=== PATIENT | female | born 1960 | race Two or more races ===

== ENCOUNTER 2020-07-09 12:42 | Outpatient (REF) | payer OTHER, SELFPAY ==
[2020-07-09 13:44] LABS: Basophils Percent Auto 0.3 % (0-2); Eosinophils Absolute Auto 0.1 X10*3/uL (0.0-0.4); Eosinophils Percent Auto 1.9 % (0-4); Hematocrit 44.3 % (37-47); Hemoglobin 14.7 g/dl (12.0-16.0); Imm Gran Abs Auto 0.03 X10*3/uL (0.00-0.03); Imm Gran Pct Auto 0.5 % (0.0-0.4); Lymphocytes Absolute Auto 2.3 X10*3/uL (1.2-4.9); Lymphocytes Percent Auto 36.7 % (20-40); MANUAL DIFF FLAG NO; Mean Corpuscular HGB Conc 33.2 g/dl (31.0-35.0); Mean Corpuscular Hemoglobin 29.2 pg (27.0-33.0); Mean Corpuscular Volume 87.9 fL (80-98); Mean Platelet Volume 12.3 fL (9.4-12.3); Monocytes Absolute Auto 0.4 X10*3/uL (0.1-1.2); Monocytes Percent Auto 7.1 % (2-11); Neutrophils Absolute Auto 3.3 X10*3/uL (2.0-8.3); Neutrophils Percent Auto 53.5 % (45-73); Platelet Count 193 X10*3/uL (160-400); Red Blood Count 5.04 X10*6/uL (4.20-5.50); Red Cell Distribution Width 12.7 % (11.0-16.0); White Blood Count 6.2 X10*3/uL (4.8-10.8)
[2020-07-09 14:47] LABS: Alanine Aminotransferase 48 U/L (0-31); Albumin Level 4.5 g/dL (3.5-5.0); Alkaline Phosphatase 155 U/L (39-117); Anion Gap 17 (12-20); Aspartate Amino Transferase 37 U/L (5-31); Bilirubin Total 0.7 mg/dL (0.0-1.0); Blood Urea Nitrogen 8 mg/dL (9-16); Calcium 9.6 mg/dL (8.4-10.2); Carbon Dioxide 22 mmol/L (22-29); Chloride 102 mmol/L (96-108); Cholesterol 197 mg/dL; Estimated Glomerular Filt Rate > 60; Glucose Fasting 343 mg/dL (60-99); HDL Cholesterol 44 mg/dL; LDL Cholesterol Calculated 103 mg/dl; Potassium 4.3 mmol/l (3.3-5.1); Sodium 137 mmol/L (135-145); Total Protein 7.9 g/dL (6.5-8.0); Triglycerides 254 mg/dL
== END 2020-07-09 12:43 | disposition home or self-care (01) ==
LOC: HO.LAB 12:42
PROVIDERS: PCP Internal Medicine; Visit Provider Internal Medicine
DX: E78.2 Mixed hyperlipidemia (principal); E11.9 Type 2 diabetes mellitus without complications; K21.9 Gastro-esophageal reflux disease without esophagitis
CPT/HCPCS: 36415; 80053; 80061; 82043; 85025

== ENCOUNTER 2020-08-27 10:54 | Outpatient (REF) | payer OTHER, SELFPAY | END 2020-08-27 10:55 | disposition home or self-care (01) | LOC: HO.LAB 10:54 | PROVIDERS: PCP Internal Medicine; Visit Provider Internal Medicine | DX: Z20.828 Contact with and (suspected) exposure to other viral communicable diseases (principal) | CPT/HCPCS: C9803; U0003 ==

== ENCOUNTER → 2020-10-08 09:17 | Outpatient (BNVA) | payer OTHER, SELFPAY | PROVIDERS: PCP Internal Medicine; Visit Provider Obstetrics & Gynecology | DX: N76.0 Acute vaginitis (principal) | CPT/HCPCS: 99212 ==

== ENCOUNTER 2020-10-09 15:38 | Outpatient (REF) | payer OTHER, SELFPAY | END 2020-10-09 15:39 | disposition home or self-care (01) | LOC: HO.LAB 15:38 | PROVIDERS: Visit Provider Internal Medicine | DX: Z20.822 Contact with and (suspected) exposure to COVID-19 (principal) | CPT/HCPCS: 36415; C9803; U0003 ==

== ENCOUNTER 2020-10-10 09:25 | Outpatient (REF) | payer OTHER, SELFPAY ==
[2020-10-11 09:39] LABS: BV Int Neg Control Negative (Negative); BV Int Pos Control Positive (Positive)
== END 2020-10-10 09:26 | disposition home or self-care (01) ==
LOC: HO.LAB 09:25
PROVIDERS: PCP Internal Medicine; Visit Provider Advanced Practice Midwife
DX: A60.00 Herpesviral infection of urogenital system, unspecified (principal); B96.89 Other specified bacterial agents as the cause of diseases classified elsewhere; N76.0 Acute vaginitis; L30.4 Erythema intertrigo; E11.9 Type 2 diabetes mellitus without complications; M25.50 Pain in unspecified joint; Z88.5 Allergy status to narcotic agent; Z88.8 Allergy status to other drugs, medicaments and biological substances; Z91.048 Other nonmedicinal substance allergy status; Z87.891 Personal history of nicotine dependence; Z78.0 Asymptomatic menopausal state
CPT/HCPCS: 87255; 87480; 87510; 87660; 99212

== ENCOUNTER 2020-10-22 11:37 | Emergency (ER) | payer OTHER, SELFPAY ==
[2020-10-22 12:30] VITALS: BP 124/75; PULSE 88; RESP 16; TEMP 36.8; O2SAT 98; BMI 30.2
[2020-10-22 12:45] LABS: Glucose, Whole Blood 249 mg/dL (60-115)
[2020-10-22 12:56] LABS: MANUAL DIFF FLAG NO
[2020-10-22 12:58] LABS: Basophils Percent Auto 0.3 % (0-2); Eosinophils Absolute Auto 0.1 X10*3/uL (0.0-0.4); Eosinophils Percent Auto 1.6 % (0-4); Hematocrit 43.6 % (37-47); Hemoglobin 14.9 g/dl (12.0-16.0); Imm Gran Abs Auto 0.02 X10*3/uL (0.00-0.03); Imm Gran Pct Auto 0.3 % (0.0-0.4); Lymphocytes Absolute Auto 2.2 X10*3/uL (1.2-4.9); Lymphocytes Percent Auto 34.8 % (20-40); Mean Corpuscular HGB Conc 34.2 g/dl (31.0-35.0); Mean Corpuscular Hemoglobin 29.6 pg (27.0-33.0); Mean Corpuscular Volume 86.5 fL (80-98); Mean Platelet Volume 11.5 fL (9.4-12.3); Monocytes Absolute Auto 0.5 X10*3/uL (0.1-1.2); Monocytes Percent Auto 7.8 % (2-11); Neutrophils Absolute Auto 3.5 X10*3/uL (2.0-8.3); Neutrophils Percent Auto 55.2 % (45-73); Platelet Count 178 X10*3/uL (160-400); Red Blood Count 5.04 X10*6/uL (4.20-5.50); Red Cell Distribution Width 12.9 % (11.0-16.0); White Blood Count 6.4 X10*3/uL (4.8-10.8)
[2020-10-22 13:27] LABS: Anion Gap 14 (12-20); Blood Urea Nitrogen 7 mg/dL (9-16); Calcium 9.7 mg/dL (8.4-10.2); Carbon Dioxide 27 mmol/L (22-29); Chloride 99 mmol/L (96-108); Creatinine Clr Calc Pharmacy 66.8; Estimated Glomerular Filt Rate > 60; Glucose Random 248 mg/dL (60-115); Potassium 4.3 mmol/L (3.3-5.1); Sodium 136 mmol/L (135-145)
[2020-10-22 13:57] LABS: Glucose Urine UA 500 MG/DL (NEG); Leukocyte Esterase Urine 2+ (NEG); Nitrite Urine NEG (NEG); PH 7.5 (5.0-8.0); UACC Culture Trigger YES; Urine Blood NEG (NEG); Urine Ketones NEG (NEG); Urine Protein NEG (NEG-TRACE)
[2020-10-22 14:00] LABS: Appearance Urine CLOUDY; Color Urine YELLOW
[2020-10-22 14:21] LABS: Amorphous Sediment Urine 2+ /LPF; Bacteria Urine 1+ /LPF; Squamous Epithelial Cell Urine 2+ /LPF
[2020-10-22 15:48] LABS: Glucose, Whole Blood 232 mg/dL (60-115)
[2020-10-22 18:05] VITALS: BP 153/83; PULSE 88; RESP 17; TEMP 37; O2SAT 97
--- NOTE | 2020-10-22 18:15 | ED_ITS ---
HPI - Nausea/Vomiting/Diarrhea General Chief complaint: Nausea/Vomiting/Diarrhea Stated complaint: VOMITING Time Seen by Provider: 10/22/20 18:15 Source: patient Mode of arrival: ambulatory Limitations: no limitations History of Present Illness HPI Narrative: 60 y/o female with history of DM on insulin w/ neuropathy, herpes simplex, arthritis, anxiety who presents with nausea and vomiting since last night. She reports being started on a new insulin called Victozia and last night she was hypoglycemic to 40. She was vomiting and had chest discomfort. This morning the symptoms persisted, but her glucose was improved. She called her doctor who instructed her to come to the ER for further evaluation. She denies fever, chills, diarrhea, myalgias, COVID exposure. She admits to diffuse abdominal aching as well as urinary frequency and dysuria. MD elicited complaint: nausea and vomiting Onset (ago): day(s) (1) Description of vomiting: food contents, watery and bilious Associated nausea: Yes Associated abdominal pain: Yes Location of pain: diffuse Radiation: diffuse Pain consistency: intermittent Severity: moderate Quality: aching Exacerbating factors: eating Relieving factors: vomiting Context: new medication Associated symptoms: chest pain, loss of appetite, dysuria, weakness and anxiety Related Data Home Medications Medication Instructions Recorded Confirmed clindamycin phosphate 1 % lotion 1 appl TOPICAL BID 09/03/20 09/03/20 diazepam 10 mg tablet 10 mg PO BID PRN 09/03/20 09/03/20 erythromycin 5 mg/gram (0.5 %) eye OPHTHALMIC (EYE) 09/03/20 09/03/20 ointment gabapentin 100 mg capsule 300 mg PO TID 09/03/20 09/03/20 linagliptin 5 mg tablet 5 mg PO DAILY 09/03/20 09/03/20 loratadine 10 mg tablet 10 mg PO DAILY 09/03/20 09/03/20 oxcarbazepine 300 mg tablet 750 mg PO BEDTIME 09/03/20 09/03/20 pen needle, diabetic 31 gauge x #50 ea 09/03/20 09/03/2012/03 Previous Rx's Medication Instructions Recorded ibuprofen 600 mg tablet 600 mg PO TID PRN 90 Days #270 tab 06/24/20 blood-glucose meter #1 ea 07/31/20 blood sugar diagnostic 1 strip MISCELLANEOUS BID #200 08/09/20 strip nystatin-triamcinolone 100,000 1 appl TOPICAL BID PRN 30 Days #30 08/19/20 unit/g-0.1 % topical cream g glipizide 10 mg tablet 10 mg PO DAILY #90 tab 08/23/20 blood pressure monitor #1 ea 09/03/20 insulin glargine 100 unit/mL (3 32 unit SUBCUT DAILY 90 Days #28.8 09/03/20 mL) subcutaneous pen ml carisoprodol 350 mg tablet 350 mg PO BID 30 Days #60 tab 09/06/20 metformin 1,000 mg tablet 1,000 mg PO BID #180 tab 09/06/20 albuterol sulfate 90 mcg/actuation 1 - 2 puff INHALATION Q4-6H PRN 09/08/20 aerosol inhaler #8.5 g clotrimazole-betamethasone 1 1 appl TOPICAL BID 14 Days #45 g 10/08/20 %-0.05 % topical cream fluconazole 150 mg tablet 150 mg PO Q3D #2 tab 10/08/20 acyclovir 5 % topical ointment 1 appl TOPICAL 6XD 7 Days #15 g 10/10/20 valacyclovir 500 mg tablet 500 mg PO BID #30 tab 10/10/20 cefuroxime axetil 250 mg PO BID 7 Days #14 tab 10/22/20 ondansetron HCl [Zofran] 4 mg PO Q8H PRN #7 tab 10/22/20 Allergies Allergy/AdvReac Type Severity Reaction Status Date / Time cyclobenzaprine Allergy Intermediate HEADACHE,DI Verified 10/10/20 09:54 [CYCLOBENZAPRINE] ZZINESS methocarbamol [METHOCARBAMOL] Allergy Intermediate TICS Verified 10/10/20 09:54 oxycodone [From PERCOCET] Allergy Intermediate VOMITING Verified 10/10/20 09:54 acetaminophen [Percocet] Allergy Unknown vomiting Verified 10/10/20 09:54 divalproex sodium [Depakote] Allergy Unknown increase Verified 10/10/20 09:54 liver enzymes nickel Allergy Unknown Unknown Verified 10/10/20 09:54 risperidone [RISPERIDONE] AdvReac Severe CHEST PAIN Verified 10/10/20 09:54 canagliflozin [Invokana] AdvReac Unknown confusion Verified 10/10/20 09:54 dulaglutide [Trulicity] AdvReac Unknown abdominal Verified 10/10/20 09:54 bloating, numbness, myalgia Narcotics Allergy Unknown unknown Uncoded 10/10/20 09:54 Review of Systems Review of Systems: Constitutional: No Fever, No Chills Cardiovascular: No Chest Pain, No SOB, No Orthopnea, No Edema Respiratory: No Cough, No Sputum, No Wheezing, No dyspnea Gastrointestinal: +Nausea, + Vomiting, No Diarrhea, +abdominal Pain Genitourinary: + Dysuria, + Urinary Frequency, No Hematuria Musculoskeletal: No joint pain, No Myalgias Skin: No Skin Lesions, No rash Neuro: No Weakness, No Numbness, No Dizziness, No Headache Psych: No Anxiety/Panic, No Depression Heme/Lymph: No Bruising, No Lymphadenopathy Endocrine: + Polyuria, No Polydipsia Gastrointestinal: Gastrointestinal: Reports nausea PMFSH Past Medical History Medical History (Updated 10/22/20 @ 19:53 by PEDRO Gutierrez) Diabetes mellitus Herpes simplex virus (HSV) infection Intertrigo Nickel allergy Nickel dermatitis Polyarthralgia Surgical History History of section History of colonoscopy History of discectomy History of laparoscopic cholecystectomy History of laparoscopy History of prior ablation treatment History of tubal ligation Family History Family History Father Prostate cancer Mother Liver problem Social History Social History Alcohol intake: never Smoking Status: Former smoker Smoked in Last 30 Days: No Use of substances other than those prescribed or required for medical reasons: No Advance Directives: No Advance Directives Information Provided: Yes Sexual orientation: Straight/Heterosexual Gender identity: female Physical Exam Vital Signs: Vital Signs: Last Vital Signs Temp 98.6 F 10/22/20 18:05 Pulse 88 10/22/20 18:05 Resp 17 10/22/20 18:05 BP 153/83 H 10/22/20 18:05 Pulse Ox 97 10/22/20 18:05 Body Mass Index 30.2 Appearance: Alert. Oriented X3. No acute distress. Eyes: Pupils equal, round and reactive to light. ENT: Pharynx normal. Neck: Normal inspection. Neck supple. CVS: Normal heart rate and rhythm. Pulses normal. Respiratory: No respiratory distress. Breath sounds normal. Abdomen: Soft and nontender. +BS x4 Skin: Skin warm and dry. Normal skin color. Normal skin turgor. No rashes. Extremities: No lower extremity edema. Neuro: Oriented X 3. No motor deficit. No sensory deficit. Course Course Course Narrative: 60 y/o female presenting with N/V and urinary symptoms as well as hypoglycemia associated with new insulin Rx. Labs are unremarkable. Reported vomiting in the waiting room. UA is positive for infection, will give Rocephin, IVF and antiemetic now. Doubt diverticulitis, cholecystitis, appendicitis. Will hold off on CT scan for now. Patient appears well. Reevaluation(s) Reevaluation #1: Patient feels improved and is tolerating PO. She is stable for discharge with treatment for UTI. She will f/u with her provider regarding her new insulin Rx. Her glucose has remained 200 while in the ED. Advised to monitor AC/HS and return to the ER if symptoms worsen. She agrees with plan and is stable for d/c. MDM - Nausea/Vomiting/Diarrhea Lab Data Result diagrams: 10/22/20 12:41 10/22/20 12:41 Labs: Lab Results 10/22/20 10/22/20 10/22/20 Range/Units 12:33 12:41 12:41 WBC 6.4 (4.8-10.8) X10*3/uL RBC 5.04 (4.20-5.50) X10*6/uL Hgb 14.9 (12.0-16.0) g/dl Hct 43.6 (37-47) % MCV 86.5 (80-98) fL MCH 29.6 (27.0-33.0) pg MCHC 34.2 (31.0-35.0) g/dl RDW 12.9 (11.0-16.0) % Plt Count 178 (160-400) X10*3/uL MPV 11.5 (9.4-12.3) fL Immature Gran % (Auto) 0.3 (0.0-0.4) % Neut % (Auto) 55.2 (45-73) % Lymph % (Auto) 34.8 (20-40) % [place] % (Auto) 7.8 (2-11) % Eos % (Auto) 1.6 (0-4) % Baso % (Auto) 0.3 (0-2) % Lymph # (Auto) 2.2 (1.2-4.9) X10*3/uL [place] # (Auto) 0.5 (0.1-1.2) X10*3/uL Eos # (Auto) 0.1 (0.0-0.4) X10*3/uL Baso # (Auto) 0.0 (0.0-0.2) X10*3/uL Abs Immat Gran (auto) 0.02 (0.00-0.03) X10*3/uL Absolute Neuts (auto) 3.5 (2.0-8.3) X10*3/uL Absolute Nucleated RBC 0.000 (0.0-0.012) X10*3/uL Nucleated RBC % (auto) 0.0 (0.0-0.2) /100WBC Sodium 136 (135-145) mmol/L Potassium 4.3 (3.3-5.1) mmol/L Chloride 99 (96-108) mmol/L Carbon Dioxide 27 (22-29) mmol/L Anion Gap 14 (12-20) BUN 7 L (9-16) mg/dL Creatinine 0.76 (0.5-1.4) mg/dL Estim Creat Clear Calc 66.8 Estimated GFR > 60 POC Glucose 249 H (60-115) mg/dL Random Glucose 248 H (60-115) mg/dL Lactic Acid (0.5-2.0) mmol/L Calcium 9.7 (8.4-10.2) mg/dL Urine Color Urine Appearance Urine pH (5.0-8.0) Ur Specific [place] (1.005-1.025) Urine Protein (NEG-TRACE) MG/DL Urine Glucose (UA) (NEG) MG/DL Urine Ketones (NEG) MG/DL Urine Blood (NEG) Urine Nitrite (NEG) Ur Leukocyte Esterase (NEG) Urine RBC (0) /HPF Urine WBC (0-4) /HPF Ur Squamous Epith Cells /LPF Amorphous Sediment /LPF Urine Bacteria /LPF Coronavirus (PCR) (Negative) Influenza Type A (PCR) (Negative) Influenza Type B (PCR) (Negative) RSV RNA Qual (PCR) (Negative) 10/22/20 10/22/20 10/22/20 Range/Units 13:12 15:44 18:43 WBC (4.8-10.8) X10*3/uL RBC (4.20-5.50) X10*6/uL Hgb (12.0-16.0) g/dl Hct (37-47) % MCV (80-98) fL MCH (27.0-33.0) pg MCHC (31.0-35.0) g/dl RDW (11.0-16.0) % Plt Count (160-400) X10*3/uL MPV (9.4-12.3) fL Immature Gran % (Auto) (0.0-0.4) % Neut % (Auto) (45-73) % Lymph % (Auto) (20-40) % [place] % (Auto) (2-11) % Eos % (Auto) (0-4) % Baso % (Auto) (0-2) % Lymph # (Auto) (1.2-4.9) X10*3/uL [place] # (Auto) (0.1-1.2) X10*3/uL Eos # (Auto) (0.0-0.4) X10*3/uL Baso # (Auto) (0.0-0.2) X10*3/uL Abs Immat Gran (auto) (0.00-0.03) X10*3/uL Absolute Neuts (auto) (2.0-8.3) X10*3/uL Absolute Nucleated RBC (0.0-0.012) X10*3/uL Nucleated RBC % (auto) (0.0-0.2) /100WBC Sodium (135-145) mmol/L Potassium (3.3-5.1) mmol/L Chloride (96-108) mmol/L Carbon Dioxide (22-29) mmol/L Anion Gap (12-20) BUN (9-16) mg/dL Creatinine (0.5-1.4) mg/dL Estim Creat Clear Calc Estimated GFR POC Glucose 232 H (60-115) mg/dL Random Glucose (60-115) mg/dL Lactic Acid (0.5-2.0) mmol/L Calcium (8.4-10.2) mg/dL Urine Color YELLOW Urine Appearance CLOUDY Urine pH 7.5 (5.0-8.0) Ur Specific [place] 1.020 (1.005-1.025) Urine Protein NEG (NEG-TRACE) MG/DL Urine Glucose (UA) 500 H (NEG) MG/DL Urine Ketones NEG (NEG) MG/DL Urine Blood NEG (NEG) Urine Nitrite NEG (NEG) Ur Leukocyte Esterase 2+ H (NEG) Urine RBC 1-4 (0) /HPF Urine WBC 10-14 H (0-4) /HPF Ur Squamous Epith Cells 2+ /LPF Amorphous Sediment 2+ /LPF Urine Bacteria 1+ /LPF Coronavirus (PCR) NEGATIVE (Negative) Influenza Type A (PCR) NEGATIVE (Negative) Influenza Type B (PCR) NEGATIVE (Negative) RSV RNA Qual (PCR) NEGATIVE (Negative) 10/22/20 Range/Units 18:47 WBC (4.8-10.8) X10*3/uL RBC (4.20-5.50) X10*6/uL Hgb (12.0-16.0) g/dl Hct (37-47) % MCV (80-98) fL MCH (27.0-33.0) pg MCHC (31.0-35.0) g/dl RDW (11.0-16.0) % Plt Count (160-400) X10*3/uL MPV (9.4-12.3) fL Immature Gran % (Auto) (0.0-0.4) % Neut % (Auto) (45-73) % Lymph % (Auto) (20-40) % [place] % (Auto) (2-11) % Eos % (Auto) (0-4) % Baso % (Auto) (0-2) % Lymph # (Auto) (1.2-4.9) X10*3/uL [place] # (Auto) (0.1-1.2) X10*3/uL Eos # (Auto) (0.0-0.4) X10*3/uL Baso # (Auto) (0.0-0.2) X10*3/uL Abs Immat Gran (auto) (0.00-0.03) X10*3/uL Absolute Neuts (auto) (2.0-8.3) X10*3/uL Absolute Nucleated RBC (0.0-0.012) X10*3/uL Nucleated RBC % (auto) (0.0-0.2) /100WBC Sodium (135-145) mmol/L Potassium (3.3-5.1) mmol/L Chloride (96-108) mmol/L Carbon Dioxide (22-29) mmol/L Anion Gap (12-20) BUN (9-16) mg/dL Creatinine (0.5-1.4) mg/dL Estim Creat Clear Calc Estimated GFR POC Glucose (60-115) mg/dL Random Glucose (60-115) mg/dL Lactic Acid 1.1 (0.5-2.0) mmol/L Calcium (8.4-10.2) mg/dL Urine Color Urine Appearance Urine pH (5.0-8.0) Ur Specific [place] (1.005-1.025) Urine Protein (NEG-TRACE) MG/DL Urine Glucose (UA) (NEG) MG/DL Urine Ketones (NEG) MG/DL Urine Blood (NEG) Urine Nitrite (NEG) Ur Leukocyte Esterase (NEG) Urine RBC (0) /HPF Urine WBC (0-4) /HPF Ur Squamous Epith Cells /LPF Amorphous Sediment /LPF Urine Bacteria /LPF Coronavirus (PCR) (Negative) Influenza Type A (PCR) (Negative) Influenza Type B (PCR) (Negative) RSV RNA Qual (PCR) (Negative) ECG Data Attestation: I personally reviewed and interpreted this ECG as follows: ECG interpretation date: 10/22/20 ECG interpretation time: 19:39 Interpretation: normal sinus rhythm, HR 77 bpm, normal VT interval, normal QTc, no ST segment elevations or depressions. Discharge Plan Discharge Clinical Impression: UTI (urinary tract infection) Qualifiers: Urinary tract infection type: acute cystitis Hematuria presence: without hematuria Qualified Code(s): N30.00 - Acute cystitis without hematuria Vomiting Qualifiers: Vomiting type: unspecified Vomiting Intractability: non-intractable Nausea presence: with nausea Qualified Code(s): R11.2 - Nausea with vomiting, unspecified Patient Disposition: Home, Self-Care Instructions: Urinary Tract Infection in Women (ED), Acute Nausea and Vomiting (ED) Additional Instructions: Your workup today showed you have a UTI. You were given your 1st dose of antibiotics in the ER - start taking the prescription antibiotic as directed starting tomorrow. Your labs are otherwise normal. Your EKG was normal. You were NEGATIVE for COVID, Influenza and RSV. Monitor your glucose before meals and nightly. Follow up with your doctor regarding your new diabetes medication. Follow up with your doctor tomorrow. If you have worsening symptoms come back to the ER for further evaluation. Prescriptions: New cefuroxime axetil 250 mg tablet 250 mg PO BID 7 Days Qty: 14 RF: 0 ondansetron HCl [Zofran] 4 mg tablet 4 mg PO Q8H PRN (Reason: nausea and vomiting) Qty: 7 RF: 0 No Action ibuprofen 600 mg tablet 600 mg PO TID PRN (Reason: pain) 90 Days Qty: 270 RF: 3 (DME) blood-glucose meter Kit See Rx Instructions .ROUTE .MEDSUPPLY Qty: 1 RF: 0 blood sugar diagnostic [FreeStyle Lite Strips] Strip 1 strip miscellaneous BID Qty: 200 RF: 1 nystatin-triamcinolone 100,000-0.1 unit/g-% cream 1 appl topical BID PRN (Reason: rash) 30 Days Qty: 30 RF: 1 glipizide 10 mg tablet 10 mg PO DAILY Qty: 90 RF: 1 metformin 1,000 mg tablet 1,000 mg PO BID Qty: 180 RF: 1 carisoprodol 350 mg tablet 350 mg PO BID 30 Days Qty: 60 RF: 0 albuterol sulfate 90 mcg/actuation HFA aerosol inhaler 1 - 2 puff inhalation Q4-6H PRN (Reason: for dyspnea) Qty: 8.5 RF: 2 loratadine 10 mg tablet 10 mg PO DAILY RF: 0 Tradjenta 5 mg tablet 5 mg PO DAILY RF: 0 oxcarbazepine 300 mg tablet 750 mg PO BEDTIME RF: 0 diazepam 10 mg tablet 10 mg PO BID PRNRF: 0 (DME) pen needle, diabetic 31 gauge x 3/16 needle See Rx Instructions ea topical QID Qty: 50 RF: 0 clindamycin phosphate 1 % lotion 1 appl topical BID RF: 0 gabapentin 100 mg capsule 300 mg PO TID RF: 0 erythromycin 5 mg/gram (0.5 %) ointment ophthalmic (eye) RF: 0 (DME) blood pressure monitor Kit See Rx Instructions .ROUTE .MEDSUPPLY Qty: 1 RF: 0 Basaglar GarethikPen U-100 Insulin 100 unit/mL (3 mL) insulin pen 32 unit subcut DAILY 90 Days Qty: 28.8 RF: 1 fluconazole 150 mg tablet 150 mg PO Q3D Qty: 2 RF: 0 clotrimazole-betamethasone 1-0.05 % cream 1 appl topical BID 14 Days Qty: 45 RF: 0 valacyclovir [Valtrex] 500 mg tablet 500 mg PO BID Qty: 30 RF: 1 acyclovir [Zovirax] 5 % ointment 1 appl topical 6XD 7 Days Qty: 15 RF: 1 Interventions: ED Discharge Assessment Last Done: 10/22/20 20:02 Discharge Date/Time: 10/22/20 20:02
--- NOTE | 2020-10-22 18:24 | ECG_ITS ---
Test Reason : NAUSEA Blood Pressure : / mmHG Vent. Rate : 077 BPM Atrial Rate : 077 BPM P-R Int : 150 ms QRS Dur : 082 ms QT Int : 390 ms P-R-T Axes : 056 002 031 degrees QTc Int : 441 ms Normal sinus rhythm Normal ECG When compared with ECG of 11-DEC-2018 01:10, T wave amplitude has increased in Lateral leads Referred By: Soraida Ruiz Electronically Signed By:JUNIE GONZALEZ MD
[2020-10-22] MEDS: ondansetron HCL 4 MG/2 ML VIAL IVPUSH (18:54)
[2020-10-22] MEDS: 0.9 % Sodium Chloride 1,000 ML 999 ML IVCONT (18:55)
[2020-10-22] MEDS: cefTRIAXone sodium 1 GM in 0.9 % Sodium Chloride 50 ML IV (19:01)
[2020-10-22 19:11] LABS: Lactic Acid 1.1 mmol/L (0.5-2.0)
--- NOTE | 2020-10-22 19:11 | PC.NURSE ---
Pt tolerating po well at this time.
[2020-10-22 19:36] LABS: Influenza A PCR NEGATIVE (Negative); Influenza B PCR NEGATIVE (Negative); Resp Syncy Virus RNA Qual PCR NEGATIVE (Negative); SARS COV2 PCR INHOUSE NEGATIVE (Negative)
== END 2020-10-22 20:02 | disposition home or self-care (01) ==
PROVIDERS: Physician Assistant; Emergency Provider Emergency Medicine; PCP Internal Medicine
DX: N30.00 Acute cystitis without hematuria (principal); Z20.822 Contact with and (suspected) exposure to COVID-19; R11.2 Nausea with vomiting, unspecified; E11.9 Type 2 diabetes mellitus without complications; Z79.4 Long term (current) use of insulin
CPT/HCPCS: 0241U; 36415; 80048; 81001; 81003; 82947; 83605; 85025; 87040; 87086; 93005; 96365; 96374; 99284; J0696; J2405

== ENCOUNTER → 2020-11-05 11:44 | Outpatient (BNVA) | payer OTHER, SELFPAY | PROVIDERS: PCP Internal Medicine; Visit Provider Advanced Practice Midwife ==

== ENCOUNTER → 2020-11-15 13:12 | Outpatient (BNVA) | payer OTHER, SELFPAY | PROVIDERS: PCP Internal Medicine; Visit Provider Nurse Practitioner | DX: Z13.89 Encounter for screening for other disorder (principal) | CPT/HCPCS: 99212 ==

== ENCOUNTER 2020-11-19 08:02 | Outpatient (REF) | payer OTHER, SELFPAY ==
[2020-11-20 09:08] LABS: BV Int Neg Control Negative (Negative); BV Int Pos Control Positive (Positive)
== END 2020-11-19 08:03 | disposition home or self-care (01) ==
LOC: HO.LAB 08:02
PROVIDERS: Advanced Practice Midwife; PCP Internal Medicine; Visit Provider Obstetrics & Gynecology
DX: N89.8 Other specified noninflammatory disorders of vagina (principal)
CPT/HCPCS: 87480; 87510; 87660; 99212

== ENCOUNTER 2020-11-25 07:35 | Day surgery (SDC) | payer OTHER, SELFPAY ==
[2020-11-25 07:59] VITALS: BMI 30.7
--- NOTE | 2020-11-25 08:00 | HO.ANESPROP2 ---
[facility] Active Problems Active Problems: All Active Problems (Updated 11/19/20 @ 10:30 by Patrick Knight) Diarrhea (Acute) Hemorrhoids (Acute) Abdominal pain (Acute) GERD (gastroesophageal reflux disease) (Acute) Chronic pancreatitis (Acute) Vaginal irritation (Acute) Fibromyalgia (Acute) Chronic neck pain (Acute) Herpes simplex virus (HSV) infection (Acute) Intertrigo (Acute) Diabetes mellitus (Acute) Polyarthralgia (Acute) Past Medical History Medical History Chronic neck pain Diabetes mellitus Fibromyalgia Herpes simplex virus (HSV) infection Intertrigo Nickel allergy Nickel dermatitis Polyarthralgia Family History Family History Father Prostate cancer Diabetes High cholesterol HTN (hypertension) Mother Liver problem Diabetes High cholesterol HTN (hypertension) Family/Other Diabetes High cholesterol HTN (hypertension) Cancer Surgical History Surgical History History of section History of colonoscopy History of discectomy History of laparoscopic cholecystectomy History of laparoscopy History of prior ablation treatment History of tubal ligation Social History Social History Household Members: Children Alcohol intake: current Alcohol intake frequency: does not drink Smoking Status: Former smoker Years Smoked: 18 Smoked in Last 30 Days: No Use of substances other than those prescribed or required for medical reasons: No Advance Directives: No Advance Directives Information Provided: Yes Sexual orientation: Straight/Heterosexual Gender identity: female Meds Allergies Allergy/AdvReac Type Severity Reaction Status Date / Time nickel Allergy Severe Rash Verified 11/15/20 13:13 cyclobenzaprine Allergy Intermediate HEADACHE,DI Verified 11/15/20 13:13 [CYCLOBENZAPRINE] ZZINESS methocarbamol [METHOCARBAMOL] Allergy Intermediate TICS Verified 11/15/20 13:13 oxycodone [From PERCOCET] Allergy Intermediate VOMITING Verified 11/15/20 13:13 acetaminophen [Percocet] Allergy Unknown vomiting Verified 11/15/20 13:13 divalproex sodium [Depakote] Allergy Unknown increase Verified 11/15/20 13:13 liver enzymes liraglutide [From Victoza] AdvReac Severe hypoglycemi Verified 11/15/20 13:13 a risperidone [RISPERIDONE] AdvReac Severe CHEST PAIN Verified 11/15/20 13:13 canagliflozin [Invokana] AdvReac Unknown confusion Verified 11/15/20 13:13 dulaglutide [Trulicity] AdvReac Unknown abdominal Verified 11/15/20 13:13 bloating, numbness, myalgia Narcotics Allergy Mild dizzy, sick Uncoded 11/15/20 13:13 Home Medications Medication Instructions Recorded Confirmed Last Taken Type clindamycin phosphate 1 % lotion 1 appl TOPICAL BID 09/03/20 10/30/20 Unknown History diazepam 10 mg tablet 10 mg PO BID PRN 09/03/20 10/30/20 Unknown History oxcarbazepine 300 mg tablet 750 mg PO BEDTIME 09/03/20 10/30/20 Unknown History pen needle, diabetic 31 gauge x #50 ea 09/03/20 10/30/20 Unknown History 12/03 Exam Exam Date and Time: November 25, 2020 0800 Air[address] Mallampati Class: II TM Dist: >3cm Neck ROM: Full Loose/Missing/Broken Teeth: No Heart: RRR Lungs: CTA Assessment and Plan Assessment Anesthesia Assessment: Anesthesia Plan Discussed and Chart Reviewed Final Anesthetic Review ASA Class: II Final Preanesthetic Review: Meds/Allgs Chart Reviewed, Consent Obtained/Reviewed and Anes Risks/Benef Reviewed Patient Risk: Low Procedure Risk: Intermediate Anesthetic Plan Anesthetic Plan: MAC: Disposition: Standard PACU
[2020-11-25 08:23] VITALS: PULSE 80; RESP 20; TEMP 36.1; O2SAT 95
[2020-11-25 08:30] LABS: Glucose, Whole Blood 249 mg/dL (60-115)
--- NOTE | 2020-11-25 08:32 | W.PM.OPN ---
Operative Note Operative Note Date of Service: 11/29/20 Narrative: Pre-op diagnosis: Abdominal pain, intermittent hematemesis, diarrhea, rectal bleeding. Post-op diagnosis: other (GERD, Gastritis, ) Procedure: FLEXIBLE TRANSORAL UPPER GASTROINTESTINAL ENDOSCOPY WITH BIOPSIES AND COLONOSCOPY TILL CECUM UPPER ENDOSCOPY Consent: Indications for the procedure and potential complications of bleeding, perforation, reaction to medications and missed diagnosis were discussed with the patient and informed consent was obtained. Instrument: Olympus GIF H 190 mid size upper endoscope Monitoring: Vital signs and clinical assessment, continuous EKG monitoring, Pulse oximetry, Carbon Dioxide monitoring and blood pressure monitoring were done throughout the procedure. Procedure: The patient was placed in the left lateral decubitis position and pre-procedure medications were administered and a bite block was placed. The endoscope was inserted into the mouth and advanced under direct vision to the third part of duodenum. A careful inspection was made as the upper endoscope was withdrawn including a retroflexed examination of the proximal stomach; Findings and interventions are described below. Findings: Larynx: Normal Esophagus: GE junction at 36 cms. Irregular Z line - biopsied to check for Sandoval's. Stomach: Moderate diffuse gastric erythema with a few 2-3 mm erosions in the antrum. Biopsies were obtained. Grade 2 flap valve on retroflexed examination of the cardia. Duodenum: Normal bulb and descending duodenum. Biopsies were obtained from 3rd part of duodenum to check for celiac sprue. Intervention: Biopsies as noted above COLONOSCOPY PROCEDURE NOTE Consent: Indications for the procedure and potential complications of bleeding, perforation, reaction to medications and missed diagnosis were discussed with the patient and informed consent was obtained. Instrument: Olympus PCF H 190 L variable stiffness pediatric colonoscope Monitoring: Vital signs and clinical assessment, intermittent blood pressure monitoring, continuous EKG monitoring, Pulse oximetry and Carbon Dioxide monitoring were done throughout the procedure. Colon withdrawl time was 18 minutes. Procedure: The patient was placed in the left lateral decubitis position and pre-procedure medications were administered. After a digital rectal examination of the ano-rectum, the video colonoscope was inserted into the rectum and advanced through the colon to the cecum. The colonoscope was slowly withdrawn in a retrograde panoramic fashion and the colon mucosa was carefully examined including a retroflexed view of the rectum. Findings and interventions are described below. Procedure Difficulty: Colon was long and tortuous and there was some loop formation - no maneuvers were required Findings: Terminal Ileum: Not evaluated Cecum: Normal Ascending Colon: Normal Transverse Colon: Normal Descending Colon: Normal Sigmoid Colon: Moderate diverticulosis Rectum: Normal Ano-rectum: Moderate internal hemorrhoids and sonny-anal skin tags Colon preparation: Good after copious irrigation Impression and Post Procedure Diagnosis: Endoscopy Findings: ESOPHAGUS: Irregular Z-line - biopsied to check for Sandoval's STOMACH: Moderate diffuse gastric erythema with a few 2-3 mm erosions in the antrum - likely due to NSAIDs. Biopsies were obtained. DUODENUM: Normal biopsied to check for celiac sprue Colonoscopy Findings: No polyps were detected. Random biopsies were obtained from the colon to check for microscopic colitis. Moderate diverticulosis seen in the sigmoid colon Moderate hemorrhoids on retroflexed exam. Plan: Await pathology results Patient to schedule a FU appointment in the GI Clinic with Rita Leija NP. Repeat Colonoscopy in 10 years if colon biopsies are normal. Above findings were reviewed with the patient and Gastritis, hemorrhoids and diverticulosis handouts were given in the discharge area Surgeon: Francisco J Dugan MD Anesthesia: MAC (Dr Allen) Estimated blood loss (mL): 0 Pathology: other (A- SMALL BOWEL R/O CELIAC B- GASTRIC ANTRUM R/O H.PYLORI C- G-E JUNCTION R/O BARRETTS D- RANDOM COLON R/O MICROSCOPIC COLITIS) Condition: stable Disposition: PACU
--- NOTE | 2020-11-25 08:32 | MHC.SHP ---
Pre-Procedural Eval Section A The patient is an INPATIENT: No The History & Physical has been completed within 30 days and I have reviewed it.: Yes Section B Chief Complaint: abdominal pain,diarrhea Details of Present Illness: abdominal pain, diarrhea, rectal bleeding Relevant Family History (Specify if Yes): No Present Medications: see Short Stay Collaborative assessment Medical History: Significant History (Chronic neck pain Diabetes mellitus Fibromyalgia Herpes simplex virus (HSV) infection Intertrigo Nickel allergy Nickel dermatitis Polyarthralgia) History of Previous Operations: Relevant previous surgery/procedure and date(s) (History of section History of colonoscopy History of discectomy History of laparoscopic cholecystectomy History of laparoscopy History of prior ablation treatment History of tubal ligation) Allergies: Allergies Allergy/AdvReac Type Severity Reaction Status Date / Time nickel Allergy Severe Rash Verified 11/15/20 13:13 cyclobenzaprine Allergy Intermediate HEADACHE,DI Verified 11/15/20 13:13 [CYCLOBENZAPRINE] ZZINESS methocarbamol [METHOCARBAMOL] Allergy Intermediate TICS Verified 11/15/20 13:13 oxycodone [From PERCOCET] Allergy Intermediate VOMITING Verified 11/15/20 13:13 acetaminophen [Percocet] Allergy Unknown vomiting Verified 11/15/20 13:13 divalproex sodium [Depakote] Allergy Unknown increase Verified 11/15/20 13:13 liver enzymes liraglutide [From Victoza] AdvReac Severe hypoglycemi Verified 11/15/20 13:13 a risperidone [RISPERIDONE] AdvReac Severe CHEST PAIN Verified 11/15/20 13:13 canagliflozin [Invokana] AdvReac Unknown confusion Verified 11/15/20 13:13 dulaglutide [Trulicity] AdvReac Unknown abdominal Verified 11/15/20 13:13 bloating, numbness, myalgia Narcotics Allergy Mild dizzy, sick Uncoded 11/15/20 13:13 Review of Systems Sugical H&P ROS: Negative: Constitution, Cardiovascular and Respiratory and Yes, Specify: Gastrointestinal (Abd pain, diarrhea, rectal bleeding) Exam Surgical H&P Exam: Normal: Heart, Normal: Lungs, Normal: Extremities and Normal: Abdomen Plan Diagnosis/Plan: Change (add an upper endoscopy due to hx of intermittent hematemesis) I have reviewed the history and physical and performed a pertinent physical examination on my patient. No changes have occurred unless specified.
[2020-11-25] MEDS: Lactated Ringers 1,000 ML 50 ML IV (08:49)
[2020-11-25 09:44] VITALS: BP 98/61; PULSE 77; RESP 18; TEMP 35.9; O2SAT 98
[2020-11-25 09:50] VITALS: PULSE 74; RESP 16; O2SAT 98
[2020-11-25 10:00] VITALS: BP 117/75; PULSE 71; RESP 16; O2SAT 98
== END 2020-11-25 10:46 | disposition home or self-care (01) ==
PROVIDERS: PCP Internal Medicine; Visit Provider Internal Medicine Gastroenterology
PROC: 0DJD8ZZ Inspection of Lower Intestinal Tract, Via Natural or Artificial Opening Endoscopic (ICD-10-PCS; CPT 45378; principal; 2020-11-25 09:10)
DX: K62.5 Hemorrhage of anus and rectum (principal); R19.7 Diarrhea, unspecified; K57.30 Diverticulosis of large intestine without perforation or abscess without bleeding; K64.8 Other hemorrhoids; K64.4 Residual hemorrhoidal skin tags; K21.9 Gastro-esophageal reflux disease without esophagitis; K29.50 Unspecified chronic gastritis without bleeding; E11.9 Type 2 diabetes mellitus without complications; B00.9 Herpesviral infection, unspecified; L30.4 Erythema intertrigo; Z79.4 Long term (current) use of insulin; Z90.49 Acquired absence of other specified parts of digestive tract; Z88.8 Allergy status to other drugs, medicaments and biological substances; Z79.899 Other long term (current) drug therapy
CPT/HCPCS: 45380; 43239; 82947; 88305; 88342

== ENCOUNTER 2020-11-26 07:48 | Outpatient (REF) | payer OTHER, SELFPAY ==
--- NOTE | ~2020-11-26 | US_ITS ---
EXAMINATION: US ABDOMEN COMPLETE CLINICAL INFORMATION: Unspecified abdominal pain. COMPARISON: CT abdomen/pelvis 08/01/2016. Ultrasound limited abdomen 12/03/2014 and 09/10/2014. TECHNIQUE: Real-time imaging of the abdominal viscera. FINDINGS: PANCREAS: Normal. ABDOMINAL AORTA: The proximal, mid, and distal segments are normal in caliber. INFERIOR VENA CAVA: Visualized portions are normal. LIVER: The liver is normal in size. The liver contour is normal. There is increased liver echogenicity. No focal hepatic lesion. There is no intrahepatic biliary duct dilatation seen. GALLBLADDER: Surgically absent. COMMON BILE DUCT: Normal in caliber measuring 0.3 cm in diameter. RIGHT KIDNEY: Normal. No hydronephrosis. No renal calculi or focal parenchymal lesions. The kidney measures 11.8 cm in maximum dimension. LEFT KIDNEY: There is anechoic cyst in midpole measuring 1.9 x 1.5 x 1.5 cm. No hydronephrosis or renal calculi. The kidney measures 11.8 cm in maximum dimension. SPLEEN: There is a small accessory splenule measuring 1.5 x 1.2 x 1.1 cm. The spleen measures 11.5 cm in maximum dimension and appears unremarkable. FREE FLUID: None. US/US abdomen complete IMPRESSION: Hepatic steatosis without focal lesion. Left renal midpole cyst.
== END 2020-11-26 07:49 | disposition home or self-care (01) ==
LOC: HO.US 07:48
PROVIDERS: PCP Internal Medicine; Visit Provider Nurse Practitioner
DX: R10.9 Unspecified abdominal pain (principal)
CPT/HCPCS: 76700

== ENCOUNTER 2021-01-16 13:15 | Outpatient (REF) | payer OTHER, SELFPAY ==
[2021-01-16 14:53] LABS: Estimated Average Glucose 329 mg/dL; Hemoglobin A1c % 13.1 %
[2021-01-16 15:21] LABS: Creatinine Urine 119.72 mg/dL; Microalbum/Creatinine Ratio Ur 27.5 ug/mg cr
[2021-01-16 15:26] LABS: Alanine Aminotransferase 33 U/L (0-31); Albumin Level 4.3 g/dL (3.5-5.0); Alkaline Phosphatase 122 U/L (39-117); Anion Gap 14 (12-20); Aspartate Amino Transferase 34 U/L (5-31); Bilirubin Total 0.9 mg/dL (0.0-1.0); Blood Urea Nitrogen 12 mg/dL (9-16); Calcium 9.3 mg/dL (8.4-10.2); Carbon Dioxide 25 mmol/L (22-29); Chloride 100 mmol/L (96-108); Cholesterol 224 mg/dL; Estimated Glomerular Filt Rate > 60; Glucose Fasting 320 mg/dL (60-99); HDL Cholesterol 38 mg/dL; Potassium 4.3 mmol/L (3.3-5.1); Sodium 135 mmol/L (135-145); Total Protein 7.6 g/dL (6.5-8.0); Triglycerides 400 mg/dL
[2021-01-16 15:38] LABS: TSH reflex Free T4 0.94 uIU/mL (0.32-4.0)
[2021-01-21 11:37] LABS: Vitamin D 25-OH, D2 <4 ng/mL; Vitamin D 25-OH, D3 21 ng/mL; Vitamin D 25-OH, Total 21 ng/mL (30-100)
== END 2021-01-16 13:16 | disposition home or self-care (01) ==
LOC: HO.LAB 13:15
PROVIDERS: Absent Provider Internal Medicine; PCP Internal Medicine; Visit Provider Internal Medicine Endocrinology, Diabetes & Metabolism
DX: R00.2 Palpitations (principal); E11.65 Type 2 diabetes mellitus with hyperglycemia; E78.5 Hyperlipidemia, unspecified; E55.9 Vitamin D deficiency, unspecified; Z79.4 Long term (current) use of insulin
CPT/HCPCS: 36415; 80053; 80061; 82043; 82306; 83036; 84443

== ENCOUNTER 2021-02-28 16:39 | Outpatient (REF) | payer OTHER, SELFPAY | END 2021-02-28 16:40 | disposition home or self-care (01) | LOC: HO.LNP 16:39 | PROVIDERS: Visit Provider Hospitalist | DX: R30.0 Dysuria (principal) | CPT/HCPCS: 87086 ==

== ENCOUNTER 2021-04-25 18:12 | Emergency (ER) | payer OTHER, SELFPAY ==
[2021-04-25 20:10] VITALS: BP 120/83; PULSE 89; RESP 16; TEMP 36.7; O2SAT 95; BMI 29.2
--- NOTE | 2021-04-25 22:19 | ED.GENADULT ---
HPI - General Adult General Chief complaint: General Medical Stated complaint: possible exposure to covid Source: patient Mode of arrival: ambulatory Limitations: no limitations History of Present Illness HPI narrative: 60-year-old female with past medical history of hyperlipidemia, hypertension, diabetes, fibromyalgia, polyarthralgia, and GERD presents with upper respiratory symptoms, body aches, abdominal pain, headache and positive COVID-19 exposure. Patient is requesting testing. Onset (ago): day(s) (1) Location: head and abdomen Severity: moderate Severity scale (1-10): 5 Quality: aching Pain Consistency: constant Relieving factors: none Exacerbating factors: movement Associated symptoms: cough, headaches and malaise Treatments prior to arrival: none Related Data Home Medications Medication Instructions Recorded Confirmed clindamycin phosphate 1 % lotion 1 appl TOPICAL BID 09/03/20 03/03/21 diazepam 10 mg tablet 10 mg PO BID PRN 09/03/20 03/03/21 oxcarbazepine 300 mg tablet 750 mg PO BEDTIME 09/03/20 03/03/21 pen needle, diabetic 31 gauge x #50 ea 09/03/20 03/03/2112/03 insulin lispro 100 unit/mL unit SUBCUT 03/03/21 03/03/21 subcutaneous pen Previous Rx's Medication Instructions Recorded ibuprofen 600 mg tablet 600 mg PO TID PRN 90 Days #270 tab 06/24/20 blood-glucose meter #1 ea 07/31/20 blood sugar diagnostic (FreeStyle 1 strip MISCELLANEOUS BID #200 08/09/20 Lite Strips) strip nystatin-triamcinolone 100,000 1 appl TOPICAL BID PRN 30 Days #30 08/19/20 unit/g-0.1 % topical cream g blood pressure monitor #1 ea 09/03/20 albuterol sulfate 90 mcg/actuation 1 - 2 puff INHALATION Q4-6H PRN 09/08/20 aerosol inhaler #8.5 g clotrimazole-betamethasone 1 1 appl TOPICAL BID 14 Days #45 g 10/08/20 %-0.05 % topical cream acyclovir 5 % topical ointment 1 appl TOPICAL 6XD 7 Days #15 g 10/29/20 (Zovirax) linagliptin 5 mg tablet (Tradjenta) 5 mg PO DAILY 30 Days #30 tab 10/30/20 valacyclovir 500 mg tablet 500 mg PO DAILY 30 Days #30 tab 10/30/20 hydrocortisone 2.5 % topical cream 1 appl NV BID PRN #30 g 11/15/20 with perineal applicator (Proctosol HC) triamcinolone acetonide 0.1 % 1 appl TOPICAL BID 14 Days #15 g 12/31/20 topical cream carisoprodol 350 mg tablet 350 mg PO BID 30 Days #60 tab 01/19/21 insulin glargine 100 unit/mL (3 35 unit SUBCUT QPM 30 Days #10.5 ml 02/16/21 mL) subcutaneous pen (Lantus Solostar U-100 Insulin) pen needle, diabetic, safety 30 #100 ea 02/16/21 gauge x 5/16 (Assure ID Pen Needle) sulfamethoxazole 800 1 tab PO BID #14 tab 02/28/21 mg-trimethoprim 160 mg tablet (Bactrim DS) cholecalciferol (vitamin D3) 25 25 mcg PO DAILY 90 Days #90 cap 03/03/21 mcg (1,000 unit) capsule glipizide 10 mg tablet 10 mg PO DAILY 90 Days #90 tab 03/17/21 fenofibrate 54 mg tablet 54 mg PO DAILY 30 Days #30 tab 03/28/21 metformin 1,000 mg tablet 1,000 mg PO BID #180 tab 04/03/21 ondansetron HCl 4 mg tablet 4 mg PO Q8H PRN #14 tab 04/26/21 (Zofran) Allergies Allergy/AdvReac Type Severity Reaction Status Date / Time nickel Allergy Severe Rash Verified 03/03/21 17:07 acetaminophen [Percocet] Allergy Intermediate vomiting Verified 03/03/21 17:07 cyclobenzaprine Allergy Intermediate HEADACHE,DI Verified 03/03/21 17:07 [CYCLOBENZAPRINE] ZZINESS divalproex sodium [Depakote] Allergy Intermediate increase Verified 03/03/21 17:07 liver enzymes methocarbamol [METHOCARBAMOL] Allergy Intermediate TICS Verified 03/03/21 17:07 oxycodone [From PERCOCET] Allergy Intermediate VOMITING Verified 03/03/21 17:07 liraglutide [From Victoza] AdvReac Severe hypoglycemi Verified 03/03/21 17:07 a risperidone [RISPERIDONE] AdvReac Severe CHEST PAIN Verified 03/03/21 17:07 canagliflozin [Invokana] AdvReac Intermediate confusion Verified 03/03/21 17:07 dulaglutide [Trulicity] AdvReac Intermediate abdominal Verified 03/03/21 17:07 bloating, numbness, myalgia Narcotics Allergy Mild dizzy, sick Uncoded 03/03/21 17:07 Review of Systems Review of Systems: Constitutional: positive Fever, positive Chills, positive fatigue, positive Malaise ENT/Mouth: No sore throat, no runny nose Eyes: No Discharge Cardiovascular: No Chest Pain, No SOB Respiratory: Positive Cough, No Sputum, No Wheezing, No Smoke Exposure, No Dyspnea Gastrointestinal: Positive Nausea, No Vomiting, No Diarrhea Genitourinary: no irregular bleeding, No Dysuria, No Urinary Frequency, No Hematuria, No Urinary Incontinence, No Urgency, No Flank Pain, Musculoskeletal: positive Myalgia Skin: No rash Neuro: Positive Headache Yes all other systems are reviewed and are negative PMFSH Past Medical History Attestation statement: The following information was validated with the patient. Source: old records reviewed Medical History Chronic neck pain Diabetes mellitus Fibromyalgia Herpes simplex virus (HSV) infection Intertrigo Mixed hyperlipidemia Nickel allergy Nickel dermatitis Polyarthralgia Surgical History History of section History of colonoscopy History of discectomy History of laparoscopic cholecystectomy History of laparoscopy History of prior ablation treatment History of tubal ligation Family History Family History Father Prostate cancer Diabetes High cholesterol HTN (hypertension) Mother Liver problem Diabetes High cholesterol HTN (hypertension) Family/Other Diabetes High cholesterol HTN (hypertension) Cancer Social History Social History Household Members: Children Housing: Apartment Alcohol intake: never Patient Tobacco Use Status: Former Tobacco user Tobacco use type: Cigarette Years Smoked: 18 e-Cigarette/Vaping Use: Never Used Second Hand Smoke Exposure: No Advance Directives: No Advance Directives Information Provided: No service: No Current occupational status: unemployed Sexual orientation: Straight/Heterosexual Gender identity: female Physical Exam Vital Signs: Vital Signs: Last Vital Signs Temp 98.0 F 04/25/21 20:10 Pulse 89 04/25/21 20:10 Resp 16 04/25/21 20:10 BP 120/83 04/25/21 20:10 Pulse Ox 95 04/25/21 20:10 Body Mass Index 29.2 Appearance: Alert. Oriented X3. Mild distress. Appears tired. Eyes: Pupils equal, round and reactive to light. Sclera nonicteric. ENT: Pharynx normal. Moist mucous membranes. Neck: Normal inspection. Neck supple. CVS: Normal heart rate and rhythm. Pulses normal. Respiratory: No respiratory distress. Breath sounds normal. Abdomen: Soft and nontender. Skin: Skin warm and dry. Normal skin color. Normal skin turgor. Extremities: No lower extremity edema. Moves all extremities against resistance. Neuro: No motor deficit. No sensory deficit. Cranial nerves 2-12 intact. Course Course Course Narrative: 60-year-old female presents with upper respiratory symptoms consistent with COVID-19 with positive COVID-19 contacts. Her son was diagnosed yesterday. Patient appears nontoxic, is afebrile, even unlabored respirations, O2 sats 95% and above. Plan of care is for testing for COVID-19. COVID-19 is positive. Supportive measures given. Patient verbalized understanding of and agrees to plan of care discharge home. Medical Decision Making Differential Diagnosis Differential Diagnosis: Influenza, viral syndrome, COVID-19, bronchitis Medical Records Medical records reviewed: Yes I reviewed the patient's medical records. Lab Data Lab results reviewed: Yes I reviewed the patient's lab results. Labs: Lab Results 04/25/21 Range/Units 21:16 Coronavirus (PCR) POSITIVE A (Negative) Influenza Type A (PCR) NEGATIVE (Negative) Influenza Type B (PCR) NEGATIVE (Negative) RSV RNA Qual (PCR) NEGATIVE (Negative) Discharge Plan Discharge Clinical Impression: COVID-19 Patient Disposition: Home, Self-Care Instructions: COVID-19 (Coronavirus Disease 2019) (ED) Additional Instructions: You were evaluated for upper respiratory symptoms. Your COVID-19 test is positive. Please maintain social isolation per State and Federal guidelines. Is your responsibility to maintain these guidelines. If symptoms worsen, or you become short of breath please return to emergency department for evaluation. Thank you for choosing this emergency department for evaluation. Please follow-up with primary care physician as needed. Return to the emergency department for any new, concerning, or worsening symptoms. Prescriptions: New ondansetron HCl [Zofran] 4 mg tablet 4 mg PO Q8H PRN (Reason: nausea and vomiting) Qty: 14 RF: 0 No Action ibuprofen 600 mg tablet 600 mg PO TID PRN (Reason: pain) 90 Days Qty: 270 RF: 3 (DME) blood-glucose meter Kit See Rx Instructions .ROUTE .MEDSUPPLY Qty: 1 RF: 0 blood sugar diagnostic [FreeStyle Lite Strips] Strip 1 strip miscellaneous BID Qty: 200 RF: 1 nystatin-triamcinolone 100,000-0.1 unit/g-% cream 1 appl topical BID PRN (Reason: rash) 30 Days Qty: 30 RF: 1 albuterol sulfate 90 mcg/actuation HFA aerosol inhaler 1 - 2 puff inhalation Q4-6H PRN (Reason: for dyspnea) Qty: 8.5 RF: 2 acyclovir [Zovirax] 5 % ointment 1 appl topical 6XD 7 Days Qty: 15 RF: 1 carisoprodol 350 mg tablet 350 mg PO BID 30 Days Qty: 60 RF: 0 Lantus Solostar U-100 Insulin 100 unit/mL (3 mL) insulin pen 35 unit subcut QPM 30 Days Qty: 10.5 RF: 6 (DME) Assure ID Pen Needle 30 gauge x 5/16 needle See Rx Instructions .ROUTE .MEDSUPPLY Qty: 100 RF: 6 glipizide 10 mg tablet 10 mg PO DAILY 90 Days Qty: 90 RF: 2 fenofibrate 54 mg tablet 54 mg PO DAILY 30 Days Qty: 30 RF: 6 metformin 1,000 mg tablet 1,000 mg PO BID Qty: 180 RF: 1 Tradjenta 5 mg tablet 5 mg PO DAILY 30 Days Qty: 30 RF: 6 valacyclovir 500 mg tablet 500 mg PO DAILY 30 Days Qty: 30 RF: 6 oxcarbazepine 300 mg tablet 750 mg PO BEDTIME RF: 0 diazepam 10 mg tablet 10 mg PO BID PRNRF: 0 (DME) pen needle, diabetic 31 gauge x 3/16 needle See Rx Instructions ea topical QID Qty: 50 RF: 0 clindamycin phosphate 1 % lotion 1 appl topical BID RF: 0 (DME) blood pressure monitor Kit See Rx Instructions .ROUTE .MEDSUPPLY Qty: 1 RF: 0 triamcinolone acetonide 0.1 % cream 1 appl topical BID 14 Days Qty: 15 RF: 1 insulin lispro 100 unit/mL insulin pen subcut RF: 0 cholecalciferol (vitamin D3) 25 mcg (1,000 unit) capsule 25 mcg PO DAILY 90 Days Qty: 90 RF: 1 sulfamethoxazole-trimethoprim [Bactrim DS] 800-160 mg tablet 1 tab PO BID Qty: 14 RF: 0 hydrocortisone [Proctosol HC] 2.5 % cream with perineal applicator 1 appl NV BID PRN (Reason: hemorrhoids) Qty: 30 RF: 0 clotrimazole-betamethasone 1-0.05 % cream 1 appl topical BID 14 Days Qty: 45 RF: 0 Stand Alone Forms: Work/School Release Interventions: ED Discharge Assessment Last Done: 04/26/21 00:15
[2021-04-25 23:07] LABS: Influenza A PCR NEGATIVE (Negative); Influenza B PCR NEGATIVE (Negative); Resp Syncy Virus RNA Qual PCR NEGATIVE (Negative)
[2021-04-25 23:13] LABS: SARS COV2 PCR INHOUSE POSITIVE (Negative)
[2021-04-25] MEDS: Ibuprofen 600 MG TABLET PO (23:56)
--- NOTE | 2021-04-26 00:17 | PC.NURSE ---
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
== END 2021-04-25 23:34 | disposition home or self-care (01) ==
PROVIDERS: Emergency Provider Emergency Medicine; PCP Internal Medicine
DX: U07.1 COVID-19 (principal); E11.9 Type 2 diabetes mellitus without complications; Z79.4 Long term (current) use of insulin
CPT/HCPCS: 0241U; 36415; 96374; 99284

== ENCOUNTER 2021-04-26 21:36 | Emergency (ER) | payer OTHER, SELFPAY ==
--- NOTE | ~2021-04-26 | XR_ITS ---
EXAMINATION: XR CHEST CLINICAL INFORMATION: Chest pain, COVID positive. COMPARISON: 09/14/2019 chest radiographs. TECHNIQUE: Frontal view of the chest was obtained. FINDINGS: No significant abnormality is noted involving the heart, lungs, mediastinum, bony thorax or soft tissues. A surgical anterior fixation plate appears intact. XR/XR chest 1V IMPRESSION: No acute cardiopulmonary process.
[2021-04-26 21:42] VITALS: BP 143/68; PULSE 117; RESP 16; TEMP 36.6; O2SAT 94; BMI 29.0
--- NOTE | 2021-04-26 21:45 | ECG_ITS ---
Test Reason : CHESTPAIN Blood Pressure : / mmHG Vent. Rate : 116 BPM Atrial Rate : 116 BPM P-R Int : 148 ms QRS Dur : 078 ms QT Int : 326 ms P-R-T Axes : 063 006 043 degrees QTc Int : 453 ms Sinus tachycardia Possible Left atrial enlargement Borderline ECG When compared with ECG of 22-OCT-2020 18:46, Vent. rate has increased BY 39 BPM Referred By: Generic ED Physician Electronically Signed By:Jesús Elliott
--- NOTE | 2021-04-26 22:33 | ED_ITS ---
HPI - Chest Pain General Chief Complaint: Chest Pain Stated Complaint: chest pain COVID + Time Seen by Provider: 04/26/21 22:33 Source: patient Mode of arrival: ambulatory Limitations: no limitations History of Present Illness HPI narrative: Patient been feelings sick for last 3 days tested for COVID positive feel tired body aches low-grade fever dry cough mild shortness of breath on exertion feels lung tight. No leg swelling no leg pain patient diabetic but not taking her insulin anymore and her blood sugar is in 200 range Related Data Home Medications Medication Instructions Recorded Confirmed clindamycin phosphate 1 % lotion 1 appl TOPICAL BID 09/03/20 03/03/21 diazepam 10 mg tablet 10 mg PO BID PRN 09/03/20 03/03/21 oxcarbazepine 300 mg tablet 750 mg PO BEDTIME 09/03/20 03/03/21 pen needle, diabetic 31 gauge x #50 ea 09/03/20 03/03/2112/03 insulin lispro 100 unit/mL unit SUBCUT 03/03/21 03/03/21 subcutaneous pen Previous Rx's Medication Instructions Recorded ibuprofen 600 mg tablet 600 mg PO TID PRN 90 Days #270 tab 06/24/20 blood-glucose meter #1 ea 07/31/20 blood sugar diagnostic (FreeStyle 1 strip MISCELLANEOUS BID #200 08/09/20 Lite Strips) strip nystatin-triamcinolone 100,000 1 appl TOPICAL BID PRN 30 Days #30 08/19/20 unit/g-0.1 % topical cream g blood pressure monitor #1 ea 09/03/20 albuterol sulfate 90 mcg/actuation 1 - 2 puff INHALATION Q4-6H PRN 09/08/20 aerosol inhaler #8.5 g clotrimazole-betamethasone 1 1 appl TOPICAL BID 14 Days #45 g 10/08/20 %-0.05 % topical cream acyclovir 5 % topical ointment 1 appl TOPICAL 6XD 7 Days #15 g 10/29/20 (Zovirax) linagliptin 5 mg tablet (Tradjenta) 5 mg PO DAILY 30 Days #30 tab 10/30/20 valacyclovir 500 mg tablet 500 mg PO DAILY 30 Days #30 tab 10/30/20 hydrocortisone 2.5 % topical cream 1 appl SD BID PRN #30 g 11/15/20 with perineal applicator (Proctosol HC) triamcinolone acetonide 0.1 % 1 appl TOPICAL BID 14 Days #15 g 12/31/20 topical cream carisoprodol 350 mg tablet 350 mg PO BID 30 Days #60 tab 01/19/21 insulin glargine 100 unit/mL (3 35 unit SUBCUT QPM 30 Days #10.5 ml 02/16/21 mL) subcutaneous pen (Lantus Solostar U-100 Insulin) pen needle, diabetic, safety 30 #100 ea 02/16/21 gauge x 5/16 (Assure ID Pen Needle) sulfamethoxazole 800 1 tab PO BID #14 tab 02/28/21 mg-trimethoprim 160 mg tablet (Bactrim DS) cholecalciferol (vitamin D3) 25 25 mcg PO DAILY 90 Days #90 cap 03/03/21 mcg (1,000 unit) capsule glipizide 10 mg tablet 10 mg PO DAILY 90 Days #90 tab 03/17/21 fenofibrate 54 mg tablet 54 mg PO DAILY 30 Days #30 tab 03/28/21 metformin 1,000 mg tablet 1,000 mg PO BID #180 tab 04/03/21 codeine 10 mg-guaifenesin 100 mg/5 10 ml PO Q4-6H PRN #237 ml 04/26/21 mL oral liquid ondansetron HCl 4 mg tablet 4 mg PO Q8H PRN #14 tab 04/26/21 (Zofran) Allergies Allergy/AdvReac Type Severity Reaction Status Date / Time nickel Allergy Severe Rash Verified 03/03/21 17:07 acetaminophen [Percocet] Allergy Intermediate vomiting Verified 03/03/21 17:07 cyclobenzaprine Allergy Intermediate HEADACHE,DI Verified 03/03/21 17:07 [CYCLOBENZAPRINE] ZZINESS divalproex sodium [Depakote] Allergy Intermediate increase Verified 03/03/21 17:07 liver enzymes methocarbamol [METHOCARBAMOL] Allergy Intermediate TICS Verified 03/03/21 17:07 oxycodone [From PERCOCET] Allergy Intermediate VOMITING Verified 03/03/21 17:07 liraglutide [From Victoza] AdvReac Severe hypoglycemi Verified 03/03/21 17:07 a risperidone [RISPERIDONE] AdvReac Severe CHEST PAIN Verified 03/03/21 17:07 canagliflozin [Invokana] AdvReac Intermediate confusion Verified 03/03/21 17:07 dulaglutide [Trulicity] AdvReac Intermediate abdominal Verified 03/03/21 17:07 bloating, numbness, myalgia Narcotics Allergy Mild dizzy, sick Uncoded 03/03/21 17:07 Review of Systems Review of Systems: Yes all other systems are reviewed and are negative ON LICENSE OF [facility] Past Medical History Medical History Chronic neck pain Diabetes mellitus Fibromyalgia Herpes simplex virus (HSV) infection Intertrigo Mixed hyperlipidemia Nickel allergy Nickel dermatitis Polyarthralgia Surgical History History of section History of colonoscopy History of discectomy History of laparoscopic cholecystectomy History of laparoscopy History of prior ablation treatment History of tubal ligation Family History Family History Father Prostate cancer Diabetes High cholesterol HTN (hypertension) Mother Liver problem Diabetes High cholesterol HTN (hypertension) Family/Other Diabetes High cholesterol HTN (hypertension) Cancer Social History Social History Household Members: Children Housing: Apartment Alcohol intake: never Patient Tobacco Use Status: Former Tobacco user Tobacco use type: Cigarette Years Smoked: 18 e-Cigarette/Vaping Use: Never Used Second Hand Smoke Exposure: No Advance Directives: No service: No Current occupational status: unemployed Sexual orientation: Straight/Heterosexual Gender identity: female Physical Exam Vital Signs: Vital Signs: Last Vital Signs Temp 97.8 F 04/26/21 21:42 Pulse 117 H 04/26/21 21:42 Resp 16 04/26/21 21:42 BP 143/68 H 04/26/21 21:42 Pulse Ox 94 04/26/21 21:42 Body Mass Index 29.0 Appearance: Alert. Oriented X3. No acute distress. Eyes: PERRLA, ENT: Pharynx normal. Oral Mucosa moist Neck: Normal inspection. Neck supple. CVS: Normal heart rate and rhythm. Pulses normal. Respiratory: No respiratory distress. Equal air entry bilateral, no wheezing/rales/rhonchi Abdomen: Soft and nontender. Bowel sounds are present, no mass palpable, no CVA tenderness Skin: Skin warm and dry. Normal skin color. Normal skin turgor. Extremities: No lower extremity edema. No calf tenderness Neuro: Oriented X 3. No motor deficit. MDM - Chest Pain Lab Data Attestation: I reviewed the patient's lab results. Labs: Lab Results 04/26/21 Range/Units 22:50 POC Glucose 354 H* (60-115) mg/dL Discharge Plan Discharge Clinical Impression: COVID-19 Patient Disposition: Home, Self-Care Instructions: COVID-19 (Coronavirus Disease 2019) (ED) Additional Instructions: Drink plenty of fluids Tylenol for fever or body aches, take medicine for a diabetes Cough syrup as prescribed. Report to the ER if increased shortness of breath Prescriptions: New codeine-guaifenesin 10-100 mg/5 mL liquid 10 ml PO Q4-6H PRN (Reason: cough) Qty: 237 RF: 0 No Action ibuprofen 600 mg tablet 600 mg PO TID PRN (Reason: pain) 90 Days Qty: 270 RF: 3 (DME) blood-glucose meter Kit See Rx Instructions .ROUTE .MEDSUPPLY Qty: 1 RF: 0 blood sugar diagnostic [FreeStyle Lite Strips] Strip 1 strip miscellaneous BID Qty: 200 RF: 1 nystatin-triamcinolone 100,000-0.1 unit/g-% cream 1 appl topical BID PRN (Reason: rash) 30 Days Qty: 30 RF: 1 albuterol sulfate 90 mcg/actuation HFA aerosol inhaler 1 - 2 puff inhalation Q4-6H PRN (Reason: for dyspnea) Qty: 8.5 RF: 2 acyclovir [Zovirax] 5 % ointment 1 appl topical 6XD 7 Days Qty: 15 RF: 1 carisoprodol 350 mg tablet 350 mg PO BID 30 Days Qty: 60 RF: 0 Lantus Solostar U-100 Insulin 100 unit/mL (3 mL) insulin pen 35 unit subcut QPM 30 Days Qty: 10.5 RF: 6 (DME) Assure ID Pen Needle 30 gauge x 5/16 needle See Rx Instructions .ROUTE .MEDSUPPLY Qty: 100 RF: 6 glipizide 10 mg tablet 10 mg PO DAILY 90 Days Qty: 90 RF: 2 fenofibrate 54 mg tablet 54 mg PO DAILY 30 Days Qty: 30 RF: 6 metformin 1,000 mg tablet 1,000 mg PO BID Qty: 180 RF: 1 ondansetron HCl [Zofran] 4 mg tablet 4 mg PO Q8H PRN (Reason: nausea and vomiting) Qty: 14 RF: 0 Tradjenta 5 mg tablet 5 mg PO DAILY 30 Days Qty: 30 RF: 6 valacyclovir 500 mg tablet 500 mg PO DAILY 30 Days Qty: 30 RF: 6 oxcarbazepine 300 mg tablet 750 mg PO BEDTIME RF: 0 diazepam 10 mg tablet 10 mg PO BID PRNRF: 0 (DME) pen needle, diabetic 31 gauge x 3/16 needle See Rx Instructions ea topical QID Qty: 50 RF: 0 clindamycin phosphate 1 % lotion 1 appl topical BID RF: 0 (DME) blood pressure monitor Kit See Rx Instructions .ROUTE .MEDSUPPLY Qty: 1 RF: 0 triamcinolone acetonide 0.1 % cream 1 appl topical BID 14 Days Qty: 15 RF: 1 insulin lispro 100 unit/mL insulin pen subcut RF: 0 cholecalciferol (vitamin D3) 25 mcg (1,000 unit) capsule 25 mcg PO DAILY 90 Days Qty: 90 RF: 1 sulfamethoxazole-trimethoprim [Bactrim DS] 800-160 mg tablet 1 tab PO BID Qty: 14 RF: 0 hydrocortisone [Proctosol HC] 2.5 % cream with perineal applicator 1 appl SD BID PRN (Reason: hemorrhoids) Qty: 30 RF: 0 clotrimazole-betamethasone 1-0.05 % cream 1 appl topical BID 14 Days Qty: 45 RF: 0
[2021-04-26 22:55] LABS: Glucose, Whole Blood 354 mg/dL (60-115)
[2021-04-26] MEDS: guaiFEN/Codeine SF 200/20/10ML 10 ML LIQUID PO (23:48)
== END 2021-04-26 23:48 | disposition home or self-care (01) ==
PROVIDERS: Emergency Provider Internal Medicine
DX: U07.1 COVID-19 (principal); E11.9 Type 2 diabetes mellitus without complications
CPT/HCPCS: 71045; 82947; 93005; 99283

== ENCOUNTER 2021-05-05 01:03 | Emergency (ER) | payer OTHER, SELFPAY ==
--- NOTE | ~2021-05-05 | CT_ITS ---
EXAMINATION: CT ANGIOGRAM OF THE CHEST WITH AND WITHOUT CONTRAST (CT PULMONARY ANGIOGRAM FOR PE) CLINICAL INFORMATION: Reason for Exam Shortness of breath, COVID-19 positive, hypoxia COMPARISON: Chest radiograph 04/26/2021 TECHNIQUE: Prior to contrast administration, noncontrast localization images were obtained. Subsequently, multidetector volumetric imaging was performed from the thoracic inlet to below the diaphragms following the administration of 65 mL Omnipaque 350 intravenous contrast. No contrast reaction reported Sagittal, coronal, and MIP oblique sagittal reformatted images were obtained on the CT workstation, uploaded to PACS, and reviewed. This CT examination was performed using dose optimization techniques as appropriate, variously including the following: *Automated exposure control *Adjustment of mA and/or kV according to patient size (this includes techniques or standardized protocols for targeted exams where dose is matched to indication/reason for exam; i.e. extremities or head) *Use of iterative reconstruction technique Total exam dose-length product 238 mGy-cm FINDINGS: QUALITY OF STUDY/CONTRAST BOLUS: Satisfactory. PULMONARY ARTERIES: No central or segmental pulmonary emboli. THORACIC AORTA: No aneurysm or dissection. LUNG: The central airways are patent. Multifocal groundglass patchy opacities are seen bilaterally. These are peripherally predominant. PLEURA: No pleural effusion or pneumothorax. MEDIASTINUM: Normal heart size. Coronary artery calcification. No pericardial effusion. No hilar or mediastinal lymphadenopathy. No evidence of septal bowing or right heart strain. CHEST WALL/AXILLA: No axillary or internal mammary lymphadenopathy. OSSEOUS STRUCTURES: No acute or suspicious osseous abnormality. UPPER ABDOMEN: Low-attenuation of the liver suggestive of hepatic steatosis. Left adrenal gland 1.4 cm nodule, indeterminate but previously seen on abdominal CT. No reflux of contrast into the hepatic veins to suggest elevated right heart pressures. CT/CT angio chest PE protocol IMPRESSION: 1. No pulmonary embolism. 2. Commonly reported imaging features of (COVID-19 or viral) pneumonia are present. Other processes such as influenza pneumonia and organizing pneumonia, as can be seen with drug toxicity and connective tissue disease, can cause a similar imaging pattern. VTE: negative
[2021-05-05 01:41] VITALS: BP 115/59; PULSE 90; RESP 20; TEMP 37.2; O2SAT 92; BMI 29.3
[2021-05-05 02:01] LABS: MANUAL DIFF FLAG NO
[2021-05-05 02:02] LABS: Hematocrit 38.2 % (37-47); Hemoglobin 13.3 g/dl (12.0-16.0); Imm Gran Abs Auto 0.03 X10*3/uL (0.00-0.03); Imm Gran Pct Auto 0.6 % (0.0-0.4); Lymphocytes Percent Auto 39.4 % (20-40); Mean Corpuscular HGB Conc 34.8 g/dl (31.0-35.0); Mean Corpuscular Hemoglobin 29.8 pg (27.0-33.0); Mean Corpuscular Volume 85.5 fL (80-98); Mean Platelet Volume 11.3 fL (9.4-12.3); Monocytes Absolute Auto 0.4 X10*3/uL (0.1-1.2); Monocytes Percent Auto 7.9 % (2-11); Neutrophils Absolute Auto 2.6 X10*3/uL (2.0-8.3); Neutrophils Percent Auto 52.1 % (45-73); Platelet Count 145 X10*3/uL (160-400); Red Blood Count 4.47 X10*6/uL (4.20-5.50); Red Cell Distribution Width 12.4 % (11.0-16.0); White Blood Count 5.1 X10*3/uL (4.8-10.8)
[2021-05-05 02:25] LABS: Alanine Aminotransferase 59 U/L (0-31); Albumin Level 3.7 g/dL (3.5-5.0); Alkaline Phosphatase 84 U/L (39-117); Anion Gap 17 (12-20); Aspartate Amino Transferase 81 U/L (5-31); Blood Urea Nitrogen 5 mg/dL (9-16); Calcium 8.3 mg/dL (8.4-10.2); Carbon Dioxide 20 mmol/L (22-29); Chloride 98 mmol/L (96-108); Creatinine Clr Calc Pharmacy 66.6; Estimated Glomerular Filt Rate > 60; Glucose Random 311 mg/dL (60-115); Potassium 3.8 mmol/L (3.3-5.1); Sodium 131 mmol/L (135-145); Total Protein 6.9 g/dL (6.5-8.0)
--- NOTE | 2021-05-05 02:40 | ED.SOB ---
HPI - SOB/Dyspnea General Chief Complaint: Dyspnea Stated Complaint: COVID +, chest pain Time Seen by Provider: 05/05/21 02:08 Source: patient Mode of arrival: ambulatory History of Present Illness HPI Narrative: 60-year-old female with history of diabetes and recent diagnosis of COVID-19 on 04/25 and now presents with complaints of continued body aches, nausea, ?feeling unwell?, chest wall pain from coughing, shortness of breath, decreased appetite for food but denies vomiting or urinary symptoms. Related Data Home Medications Medication Instructions Recorded Confirmed clindamycin phosphate 1 % lotion 1 appl TOPICAL BID 09/03/20 03/03/21 diazepam 10 mg tablet 10 mg PO BID PRN 09/03/20 03/03/21 oxcarbazepine 300 mg tablet 750 mg PO BEDTIME 09/03/20 03/03/21 pen needle, diabetic 31 gauge x #50 ea 09/03/20 03/03/2112/03 insulin lispro 100 unit/mL unit SUBCUT 03/03/21 03/03/21 subcutaneous pen Previous Rx's Medication Instructions Recorded ibuprofen 600 mg tablet 600 mg PO TID PRN 90 Days #270 tab 06/24/20 blood-glucose meter #1 ea 07/31/20 blood sugar diagnostic (FreeStyle 1 strip MISCELLANEOUS BID #200 08/09/20 Lite Strips) strip nystatin-triamcinolone 100,000 1 appl TOPICAL BID PRN 30 Days #30 08/19/20 unit/g-0.1 % topical cream g blood pressure monitor #1 ea 09/03/20 albuterol sulfate 90 mcg/actuation 1 - 2 puff INHALATION Q4-6H PRN 09/08/20 aerosol inhaler #8.5 g clotrimazole-betamethasone 1 1 appl TOPICAL BID 14 Days #45 g 10/08/20 %-0.05 % topical cream acyclovir 5 % topical ointment 1 appl TOPICAL 6XD 7 Days #15 g 10/29/20 (Zovirax) linagliptin 5 mg tablet (Tradjenta) 5 mg PO DAILY 30 Days #30 tab 10/30/20 hydrocortisone 2.5 % topical cream 1 appl NE BID PRN #30 g 11/15/20 with perineal applicator (Proctosol HC) triamcinolone acetonide 0.1 % 1 appl TOPICAL BID 14 Days #15 g 12/31/20 topical cream carisoprodol 350 mg tablet 350 mg PO BID 30 Days #60 tab 01/19/21 insulin glargine 100 unit/mL (3 35 unit SUBCUT QPM 30 Days #10.5 ml 02/16/21 mL) subcutaneous pen (Lantus Solostar U-100 Insulin) pen needle, diabetic, safety 30 #100 ea 02/16/21 gauge x 5/16 (Assure ID Pen Needle) sulfamethoxazole 800 1 tab PO BID #14 tab 02/28/21 mg-trimethoprim 160 mg tablet (Bactrim DS) cholecalciferol (vitamin D3) 25 25 mcg PO DAILY 90 Days #90 cap 03/03/21 mcg (1,000 unit) capsule glipizide 10 mg tablet 10 mg PO DAILY 90 Days #90 tab 03/17/21 fenofibrate 54 mg tablet 54 mg PO DAILY 30 Days #30 tab 03/28/21 metformin 1,000 mg tablet 1,000 mg PO BID #180 tab 04/03/21 codeine 10 mg-guaifenesin 100 mg/5 10 ml PO Q4-6H PRN #237 ml 04/26/21 mL oral liquid ondansetron HCl 4 mg tablet 4 mg PO Q8H PRN #14 tab 04/26/21 (Zofran) azithromycin 250 mg tablet 250 mg PO DIRECTED 5 Days #6 tab 05/01/21 ondansetron 4 mg disintegrating 4 mg PO Q8H PRN 7 Days #21 tab 05/01/21 tablet valacyclovir 500 mg tablet 500 mg PO DAILY 30 Days #30 tab 05/01/21 Allergies Allergy/AdvReac Type Severity Reaction Status Date / Time nickel Allergy Severe Rash Verified 03/03/21 17:07 acetaminophen [Percocet] Allergy Intermediate vomiting Verified 03/03/21 17:07 cyclobenzaprine Allergy Intermediate HEADACHE,DI Verified 03/03/21 17:07 [CYCLOBENZAPRINE] ZZINESS divalproex sodium [Depakote] Allergy Intermediate increase Verified 03/03/21 17:07 liver enzymes methocarbamol [METHOCARBAMOL] Allergy Intermediate TICS Verified 03/03/21 17:07 oxycodone [From PERCOCET] Allergy Intermediate VOMITING Verified 03/03/21 17:07 liraglutide [From Victoza] AdvReac Severe hypoglycemi Verified 03/03/21 17:07 a risperidone [RISPERIDONE] AdvReac Severe CHEST PAIN Verified 03/03/21 17:07 canagliflozin [Invokana] AdvReac Intermediate confusion Verified 03/03/21 17:07 dulaglutide [Trulicity] AdvReac Intermediate abdominal Verified 03/03/21 17:07 bloating, numbness, myalgia Narcotics Allergy Mild dizzy, sick Uncoded 03/03/21 17:07 Review of Systems Review of Systems: Pertinent positives and negatives as stated in HPI 10 point review of systems is otherwise negative. PMFSH Past Medical History Source: nursing notes reviewed Medical History Chronic neck pain Diabetes mellitus Fibromyalgia Herpes simplex virus (HSV) infection Intertrigo Mixed hyperlipidemia Nickel allergy Nickel dermatitis Polyarthralgia Surgical History History of section History of colonoscopy History of discectomy History of laparoscopic cholecystectomy History of laparoscopy History of prior ablation treatment History of tubal ligation Family History Family History Father Prostate cancer Diabetes High cholesterol HTN (hypertension) Mother Liver problem Diabetes High cholesterol HTN (hypertension) Family/Other Diabetes High cholesterol HTN (hypertension) Cancer Social History Social History Household Members: Children Housing: Apartment Alcohol intake: never Patient Tobacco Use Status: Former Tobacco user Tobacco use type: Cigarette Years Smoked: 18 e-Cigarette/Vaping Use: Never Used Second Hand Smoke Exposure: No Advance Directives: No Advance Directives Information Provided: Yes Patient : No service: No Current occupational status: unemployed Sexual orientation: Straight/Heterosexual Gender identity: female Physical Exam Vital Signs: Vital Signs: Last Vital Signs Temp 98.9 F 05/05/21 01:41 Pulse 94 05/05/21 03:02 Resp 20 05/05/21 03:02 BP 120/64 05/05/21 03:02 Pulse Ox 93 05/05/21 03:02 Body Mass Index 29.3 VITAL SIGNS: Reviewed. GENERAL: Well developed, well nourished, in no acute distress. HEAD: Normocephalic/atraumatic, EYES: PERRLA, EOMI LUNGS: Decreased breath sounds, mild tachypnea SpO2<92> on room air at rest CARDIOVASCULAR: Regular rate and rhythm without noted murmurs, no JVD or lower extremity edema. ABDOMEN: Soft, non-tender, non-distended with bowel sounds. SKIN: Inspection of the skin reveals no rashes. NEUROLOGIC: Alert and oriented x 4. Course Course Course Narrative: 60-year-old female with history and clinical presentation consistent with persistent COVID-19 symptoms that include shortness of breath, will obtain basic labs as well as CT of the chest and urinalysis. Review of all investigations negative for acute findings and on ambulation test for hypoxia patient was able to maintain 94% and states that she feels much better after receiving IV fluids. She was discharged home in stable condition and instructed to continue with her quarantine and treatment with [id number] analgesics. MDM - SOB/Dyspnea Lab Data Result diagrams: 05/05/21 01:57 05/05/21 01:57 Labs: Lab Results 05/05/21 05/05/21 Range/Units 01:57 01:57 WBC 5.1 (4.8-10.8) X10*3/uL RBC 4.47 (4.20-5.50) X10*6/uL Hgb 13.3 (12.0-16.0) g/dl Hct 38.2 (37-47) % MCV 85.5 (80-98) fL MCH 29.8 (27.0-33.0) pg MCHC 34.8 (31.0-35.0) g/dl RDW 12.4 (11.0-16.0) % Plt Count 145 L (160-400) X10*3/uL MPV 11.3 (9.4-12.3) fL Immature Gran % (Auto) 0.6 H (0.0-0.4) % Neut % (Auto) 52.1 (45-73) % Lymph % (Auto) 39.4 (20-40) % Keith % (Auto) 7.9 (2-11) % Eos % (Auto) 0.0 (0-4) % Baso % (Auto) 0.0 (0-2) % Lymph # (Auto) 2.0 (1.2-4.9) X10*3/uL Keith # (Auto) 0.4 (0.1-1.2) X10*3/uL Eos # (Auto) 0.0 (0.0-0.4) X10*3/uL Baso # (Auto) 0.0 (0.0-0.2) X10*3/uL Abs Immat Gran (auto) 0.03 (0.00-0.03) X10*3/uL Absolute Neuts (auto) 2.6 (2.0-8.3) X10*3/uL Absolute Nucleated RBC 0.000 (0.0-0.012) X10*3/uL Nucleated RBC % (auto) 0.0 (0.0-0.2) /100WBC Sodium 131 L (135-145) mmol/L Potassium 3.8 (3.3-5.1) mmol/L Chloride 98 (96-108) mmol/L Carbon Dioxide 20 L (22-29) mmol/L Anion Gap 17 (12-20) BUN 5 L D (9-16) mg/dL Creatinine 0.75 (0.5-1.4) mg/dL Estim Creat Clear Calc 66.6 Estimated GFR > 60 Random Glucose 311 H (60-115) mg/dL Calcium 8.3 L D (8.4-10.2) mg/dL Total Bilirubin 1.0 (0.0-1.0) mg/dL AST 81 H (5-31) U/L ALT 59 H (0-31) U/L Alkaline Phosphatase 84 D (39-117) U/L Total Protein 6.9 (6.5-8.0) g/dL Albumin 3.7 (3.5-5.0) g/dL Discharge Plan Discharge Clinical Impression: COVID-19, Viral syndrome Patient Disposition: Home, Self-Care Instructions: COVID-19 (Coronavirus Disease 2019) (ED), Viral Syndrome (ED) Additional Instructions: 1. Resume all home medications as prescribed. 2. Continue to drink plenty of water. 3. Continue to use [id number] Tylenol and ibuprofen for body aches and temperatures greater than 100.4. Continue to follow Federal and State guidelines for COVID-19 infection. Return to the ER for acute worsening of symptoms. Prescriptions: No Action ibuprofen 600 mg tablet 600 mg PO TID PRN (Reason: pain) 90 Days Qty: 270 RF: 3 (DME) blood-glucose meter Kit See Rx Instructions .ROUTE .MEDSUPPLY Qty: 1 RF: 0 blood sugar diagnostic [FreeStyle Lite Strips] Strip 1 strip miscellaneous BID Qty: 200 RF: 1 nystatin-triamcinolone 100,000-0.1 unit/g-% cream 1 appl topical BID PRN (Reason: rash) 30 Days Qty: 30 RF: 1 albuterol sulfate 90 mcg/actuation HFA aerosol inhaler 1 - 2 puff inhalation Q4-6H PRN (Reason: for dyspnea) Qty: 8.5 RF: 2 acyclovir [Zovirax] 5 % ointment 1 appl topical 6XD 7 Days Qty: 15 RF: 1 carisoprodol 350 mg tablet 350 mg PO BID 30 Days Qty: 60 RF: 0 Lantus Solostar U-100 Insulin 100 unit/mL (3 mL) insulin pen 35 unit subcut QPM 30 Days Qty: 10.5 RF: 6 (DME) Assure ID Pen Needle 30 gauge x 5/16 needle See Rx Instructions .ROUTE .MEDSUPPLY Qty: 100 RF: 6 glipizide 10 mg tablet 10 mg PO DAILY 90 Days Qty: 90 RF: 2 fenofibrate 54 mg tablet 54 mg PO DAILY 30 Days Qty: 30 RF: 6 metformin 1,000 mg tablet 1,000 mg PO BID Qty: 180 RF: 1 valacyclovir 500 mg tablet 500 mg PO DAILY 30 Days Qty: 30 RF: 6 ondansetron 4 mg tablet,disintegrating 4 mg PO Q8H PRN (Reason: nausea and vomiting) 7 Days Qty: 21 RF: 0 azithromycin 250 mg tablet 250 mg PO DIRECTED 5 Days Qty: 6 RF: 0 ondansetron HCl [Zofran] 4 mg tablet 4 mg PO Q8H PRN (Reason: nausea and vomiting) Qty: 14 RF: 0 codeine-guaifenesin 10-100 mg/5 mL liquid 10 ml PO Q4-6H PRN (Reason: cough) Qty: 237 RF: 0 Tradjenta 5 mg tablet 5 mg PO DAILY 30 Days Qty: 30 RF: 6 oxcarbazepine 300 mg tablet 750 mg PO BEDTIME RF: 0 diazepam 10 mg tablet 10 mg PO BID PRNRF: 0 (DME) pen needle, diabetic 31 gauge x 3/16 needle See Rx Instructions ea topical QID Qty: 50 RF: 0 clindamycin phosphate 1 % lotion 1 appl topical BID RF: 0 (DME) blood pressure monitor Kit See Rx Instructions .ROUTE .MEDSUPPLY Qty: 1 RF: 0 triamcinolone acetonide 0.1 % cream 1 appl topical BID 14 Days Qty: 15 RF: 1 insulin lispro 100 unit/mL insulin pen subcut RF: 0 cholecalciferol (vitamin D3) 25 mcg (1,000 unit) capsule 25 mcg PO DAILY 90 Days Qty: 90 RF: 1 sulfamethoxazole-trimethoprim [Bactrim DS] 800-160 mg tablet 1 tab PO BID Qty: 14 RF: 0 hydrocortisone [Proctosol HC] 2.5 % cream with perineal applicator 1 appl NE BID PRN (Reason: hemorrhoids) Qty: 30 RF: 0 clotrimazole-betamethasone 1-0.05 % cream 1 appl topical BID 14 Days Qty: 45 RF: 0 Referrals: Physician,Unknown [Primary Care Provider] - 2 days
--- NOTE | 2021-05-05 03:01 | PC.NURSE ---
patient ambulated for o2 trial, 93% on room air then 95% while ambulating on room air.
[2021-05-05 03:02] VITALS: BP 120/64; PULSE 94; RESP 20; O2SAT 93
--- NOTE | 2021-05-05 04:18 | PC.NURSE ---
PATIENT REPORTS FEELING BETTER, AMBULATING TO CT SCAN,
[2021-05-05] MEDS: iohexoL 350 MG/ML 100 ML INFUS..BTL 65 ML IV (04:29)
== END 2021-05-05 05:25 | disposition home or self-care (01) ==
PROVIDERS: Emergency Provider Student in an Organized Health Care Education/Training Program
DX: U07.1 COVID-19 (principal); B34.9 Viral infection, unspecified; R06.02 Shortness of breath; E11.9 Type 2 diabetes mellitus without complications; Z79.4 Long term (current) use of insulin; Z79.899 Other long term (current) drug therapy
CPT/HCPCS: 36415; 71275; 80053; 85025; 99284; Q9967

== ENCOUNTER → 2021-05-20 11:50 | Outpatient (REF) | payer OTHER, SELFPAY ==
--- NOTE | 2021-05-20 12:12 | ECG_ITS ---
Test Reason : CHEST PAIN Blood Pressure : / mmHG Vent. Rate : 075 BPM Atrial Rate : 075 BPM P-R Int : 136 ms QRS Dur : 080 ms QT Int : 380 ms P-R-T Axes : 038 006 028 degrees QTc Int : 424 ms Normal sinus rhythm Normal ECG When compared with ECG of 26-APR-2021 21:59, Vent. rate has decreased BY 41 BPM Referred By: An Aguilar Electronically Signed By:NAVI CONCEPCION
== END ==
LOC: HO.CARD 11:50
PROVIDERS: PCP Internal Medicine; Visit Provider Internal Medicine
DX: R07.9 Chest pain, unspecified (principal)
CPT/HCPCS: 93005

== ENCOUNTER → 2021-07-23 13:40 | Outpatient (REF) | payer OTHER, SELFPAY ==
--- NOTE | 2021-07-23 14:06 | CA_ITS ---
Transthoracic Echocardiogram Patient (Last, First, Middle): Alia Spencer, Gender: Female Date of : 1960 Age: 61 Procedure Date: 07/23/2021 Procedure Type: Transthoracic Echocardiogram Location: OP Height: 149.86 cm Weight: 62.6 kg BSA: 1.57 m2 Heart Rate: bpm BP: 110 / 68 mmHg Crap Game Box Person: ADAM Referring MD: An Aguilar MD Founder And Chief Technical Officer: Chico Gonzáles MD Symptoms: R06.02 - Shortness of breath Study Quality: Good ECG Rhythm: Sinus Conclusions: - 1. Normal LV systolic function with grade 1 diastolic dysfunction 2. Normal cardiac valvular Doppler 3. Normal RV systolic pressure 4. No pericardial effusion Findings Left Ventricle Normal left ventricular size, thickness, and systolic function. The visually estimated ejection fraction is between 65-70%. Spectral Doppler is indicative of an impaired relaxation filling pattern. E/E prime ratio is <8, consistent with normal filling pressures. Evidence suggests grade I (mild) diastolic dysfunction. Right Ventricle Normal right ventricular cavity size and systolic function. Atria Both atria are normal in size. There is no evidence of interatrial shunt. Aortic Valve Normal aortic valve structure and function. There is no aortic valve stenosis. There is no aortic valve regurgitation. Mitral Valve Normal mitral valve structure and function. There is trace mitral valve regurgitation. There is no mitral valve stenosis. Pulmonic Valve The pulmonic valve was not well visualized. Tricuspid Valve Likely normal tricuspid valve structure and function. There is trace tricuspid valve regurgitation. The right ventricular systolic pressure is normal. The right ventricular systolic pressure is 21 mmHg. Normal right atrial pressure. There is no evidence of pulmonary hypertension. Great Vessels All visible segments of the aorta are normal in size. The pulmonary artery was not well visualized. Venous The inferior vena cava is normal in size and collapses greater than 50% with inspiration. Pericardium/Pleural There is no evidence of pericardial effusion. Prior Study Comparison No significant change compared to prior study dated: 02/14/2019. Measurements 2D Linear Measurements IVSd: 0.90 0.6-0.9/0.6-1.0 cm LVIDd: 3.53 3.9-5.3/4.2-5.9 cm LVIDd Index: 2.25 2.4-3.2/2.2-3.1 cm/m2 LVIDs: 2.37 2.0-3.6 cm LVPWd: 0.87 0.7-1.1 cm Ao Root: 2.70 2.1-3.5 cm LA Diam: 2.60 2.7-3.8/3.0-4.0 cm LAIDs Index: 1.66 1.5-2.3 cm/m2 LV Mass: 108.47 67-162/88-224 g LV Mass Index: 69.09 43-95/49-115 g/m2 LVOT Diam: 1.90 3.0+(-)1.3 cm 2D Systolic Function EF 4C: 73.70 >55% EF 2C: 71.40 >55% EF BiP: 73.10 >55% Mitral Valve MV Pk E: 0.43 MV PK A: 0.67 MV Decel Time: 264.00 E/A: 0.60 E'Lateral: 9.68 E'Medial: 9.90 E/E' Med: 4.30 E/E' Lat: 4.40 PHT: 77.00 MVA PHT: 2.86 Decel [place]: 1.62 Aortic Valve AoV Pk Michel: 1.06 AoV Pk Grad: 4.00 LVOT LVOT Pk Michel: 0.87 LVOT Mn Michel: 0.61 LVOT VTI: 0.17 LVOT Pk Grad: 3.00 LVOT Mn Grad: 2.00 LVOT Diam: 1.90 LVOT Area: 2.84 Diastolic Function MV Pk E: 0.43 MV Pk A: 0.67 E/A: 0.60 E'Medial: 9.90 E/E' Med: 4.30 E' Laterial: 9.68 E/E' Lat: 4.40 Right Ventricle TAPSE (mm): 1.83 Tricuspid Valve TR Pk Michel: 2.11 TR Pk Grad: 18.00 RA Press: 3.00 RVSP: 21.00 Great Vessels Aorta Ao Root-2D: 2.70 2.0-3.7 cm Ao Asc: 3.70 2.1-3.4 cm Updated in Other Vendor System with Status of Final Chico Gonzáles MD electronically signed on 07/23/2021 5:25:23 PM with status of Final
== END ==
LOC: HO.CARD 13:40
PROVIDERS: PCP Internal Medicine; Visit Provider Internal Medicine
DX: R06.02 Shortness of breath (principal)
CPT/HCPCS: 93306

== ENCOUNTER 2021-09-03 11:22 | Outpatient (REF) | payer OTHER, SELFPAY ==
[2021-09-03 11:50] LABS: MANUAL DIFF FLAG NO
[2021-09-03 12:17] LABS: Basophils Percent Auto 0.3 % (0-2); Eosinophils Absolute Auto 0.1 X10*3/uL (0.0-0.4); Eosinophils Percent Auto 1.9 % (0-4); Hematocrit 44.6 % (37.0-47.0); Hemoglobin 15.2 g/dl (12.0-16.0); Imm Gran Abs Auto 0.02 X10*3/uL (0.00-0.03); Imm Gran Pct Auto 0.3 % (0.0-0.4); Lymphocytes Absolute Auto 2.3 X10*3/uL (1.2-4.9); Lymphocytes Percent Auto 37.1 % (20-40); Mean Corpuscular HGB Conc 34.1 g/dl (31.0-35.0); Mean Corpuscular Hemoglobin 29.6 pg (27.0-33.0); Mean Corpuscular Volume 86.8 fL (80.0-98.0); Mean Platelet Volume 12.2 fL (9.4-12.3); Monocytes Absolute Auto 0.4 X10*3/uL (0.1-1.2); Monocytes Percent Auto 6.6 % (2-11); Neutrophils Absolute Auto 3.3 x10*3/uL (2.0-8.3); Neutrophils Percent Auto 53.8 % (45-73); Platelet Count 144 X10*3/uL (160-400); Red Blood Count 5.14 X10*6/uL (4.20-5.50); Red Cell Distribution Width 12.4 % (11.0-16.0); White Blood Count 6.2 X10*3/uL (4.8-10.8)
[2021-09-03 13:13] LABS: Creatinine Urine 55.51 mg/dL
[2021-09-03 13:51] LABS: Alanine Aminotransferase 41 U/L (0-31); Albumin Level 4.4 g/dL (3.5-5.0); Alkaline Phosphatase 172 U/L (39-117); Anion Gap 14 (12-20); Aspartate Amino Transferase 36 U/L (5-31); Bilirubin Total 0.9 mg/dL (0.0-1.0); Blood Urea Nitrogen 9 mg/dL (9-16); Calcium 10.6 mg/dL (8.4-10.2); Carbon Dioxide 27 mmol/L (22-29); Chloride 97 mmol/L (96-108); Cholesterol 285 mg/dL; Estimated Glomerular Filt Rate > 60; Glucose Fasting 380 mg/dL (60-99); HDL Cholesterol 39 mg/dL; Potassium 4.8 mmol/L (3.3-5.1); Sodium 133 mmol/L (135-145); Total Protein 8.2 g/dL (6.5-8.0); Triglycerides 665 mg/dL
[2021-09-09 15:26] LABS: Vitamin D 25-OH, D2 <4 ng/mL; Vitamin D 25-OH, D3 25 ng/mL; Vitamin D 25-OH, Total 25 ng/mL (30-100)
== END 2021-09-03 11:23 | disposition home or self-care (01) ==
LOC: HO.LAB 11:22
PROVIDERS: PCP Internal Medicine; Visit Provider Internal Medicine
DX: E11.65 Type 2 diabetes mellitus with hyperglycemia (principal); E78.5 Hyperlipidemia, unspecified; E55.9 Vitamin D deficiency, unspecified; R06.02 Shortness of breath; D64.9 Anemia, unspecified; Z79.4 Long term (current) use of insulin
CPT/HCPCS: 36415; 80053; 80061; 82043; 82306; 85025

== ENCOUNTER 2021-11-11 15:46 | Outpatient (REF) | payer OTHER, SELFPAY ==
--- NOTE | ~2021-11-11 | XR_ITS ---
EXAMINATION: XR ABDOMEN KUB CLINICAL INDICATION: Calculus of kidney. Right flank pain. COMPARISON: None TECHNIQUE: AP view of the abdomen. FINDINGS: No renal stone is seen. There are small bilateral pelvic calcifications probably representing calcified phleboliths. There is stool throughout the colon. There are no dilated loops of bowel to suggest obstruction or evidence of free air. There are right upper quadrant clips suggestive of previous cholecystectomy. There are mild degenerative changes of the spine and hip joints. XR/XR KUB IMPRESSION: No definite stone seen. Small bilateral pelvic calcifications probably representing calcified phleboliths.
[2021-11-11 16:47] LABS: Alanine Aminotransferase 40 U/L (0-31); Albumin Level 4.4 g/dL (3.5-5.0); Alkaline Phosphatase 145 U/L (39-117); Anion Gap 12 (12-20); Aspartate Amino Transferase 39 U/L (5-31); Bilirubin Total 1.1 mg/dL (0.0-1.0); Blood Urea Nitrogen 6 mg/dL (9-16); Carbon Dioxide 28 mmol/L (22-29); Chloride 101 mmol/L (96-108); Cholesterol 264 mg/dL; Estimated Glomerular Filt Rate > 60; Glucose Fasting 339 mg/dL (60-99); HDL Cholesterol 42 mg/dL; Potassium 4.3 mmol/L (3.3-5.1); Sodium 137 mmol/L (135-145); Triglycerides 413 mg/dL
[2021-11-11 18:09] LABS: Creatinine Urine 68.12 mg/dL; Microalbum/Creatinine Ratio Ur 92.4 ug/mg cr
[2021-11-14 15:01] LABS: Vitamin D 25-OH, D2 <4 ng/mL; Vitamin D 25-OH, D3 20 ng/mL; Vitamin D 25-OH, Total 20 ng/mL (30-100)
== END 2021-11-11 15:47 | disposition home or self-care (01) ==
LOC: HO.LAB 15:46
PROVIDERS: PCP Internal Medicine; Visit Provider Internal Medicine
DX: N20.0 Calculus of kidney (principal); E78.5 Hyperlipidemia, unspecified; K21.9 Gastro-esophageal reflux disease without esophagitis; E55.9 Vitamin D deficiency, unspecified; E11.9 Type 2 diabetes mellitus without complications
CPT/HCPCS: 36415; 74018; 80053; 80061; 82043; 82306

== ENCOUNTER 2022-03-01 12:07 | Inpatient (IN) | payer OTHER, SELFPAY ==
--- NOTE | 2022-03-01 | ECG_ITS ---
Test Reason : PALPITATIONS Blood Pressure : / mmHG Vent. Rate : 077 BPM Atrial Rate : 077 BPM P-R Int : 152 ms QRS Dur : 082 ms QT Int : 392 ms P-R-T Axes : 045 -10 021 degrees QTc Int : 443 ms Normal sinus rhythm Normal ECG When compared with ECG of 20-MAY-2021 12:17, No significant change was found Referred By: Generic ED Physician Electronically Signed By:Jesús Elliott
--- NOTE | ~2022-03-01 | XR_ITS ---
EXAMINATION: XR CHEST CLINICAL INFORMATION: Dizziness COMPARISON: Chest 04/26/2021 TECHNIQUE: Frontal view of the chest was obtained. FINDINGS: The lungs are well-expanded and clear. The heart size and pulmonary vascularity is normal. There is moderate spondylosis dorsal spine. No lytic process. XR/XR chest 1V IMPRESSION: No acute cardiopulmonary process seen. There is moderate spondylosis dorsal spine.
--- NOTE | ~2022-03-01 | CT_ITS ---
EXAMINATION: CT ANGIOGRAM NECK WITH CONTRAST CT ANGIOGRAM BRAIN WITH CONTRAST CLINICAL INFORMATION: Right-sided weakness and dizziness. COMPARISON: Head CT 12/11/2018 and brain MRI 09/28/2019. TECHNIQUE: Test bolus sequences followed by intravenous administration 70 mL of Omnipaque 350. Helical imaging was performed in the axial plane from the thoracic inlet to the skull vertex. Delayed postcontrast imaging of the head was also performed. The data was processed at the development technologist workstation for generation of MIP sequences. Angled MIPs and volume rendered reformatted images were also generated at an offline 3D workstation under concurrent supervision. Stenoses are assessed in accordance with NASCET criteria unless otherwise indicated. This CT examination was performed using dose optimization techniques as appropriate, variously including the following: *Automated exposure control *Adjustment of mA and/or kV according to patient size (this includes techniques or standardized protocols for targeted exams where dose is matched to indication/reason for exam; i.e. extremities or head) *Use of iterative reconstruction technique FINDINGS: BRAIN: [Calcification within the globus pallidus bilaterally. Perivascular space within the inferior left putamen. There is no intracranial hemorrhage, hydrocephalus, extra-axial surface collection, midline shift, or other herniation pattern. Romano to white matter differentiation is diffusely maintained without evidence of an evolved acute territorial infarct. The basilar cisterns are preserved. No significant soft tissue abnormality. No acute osseous abnormality. The paranasal sinuses and the mastoid air cells are well aerated.] CERVICAL SOFT TISSUES AND LUNG APICES: Imaged upper lungs are clear. No acute osseous findings. Postoperative changes following ACDF at C5-C6. NECK CTA: [There is a classic 3 vessel configuration of the aortic arch. Proximal arch vessels are non-stenotic. The vertebral arteries are codominant. No significant ostial stenosis is visualized on either side. Both vertebral arteries are widely patent throughout their extracranial cervical course. Both common and internal carotid arteries are normal in course and caliber.] BRAIN CTA: [There is normal opacification of major intracranial arteries. No focal flow-limiting stenosis nor discrete proximal large artery occlusion. No aneurysm. Timing of the contrast bolus allows assessment of the major dural venous sinuses, which all opacify normally] CT/CT angio head neck IMPRESSION: No acute intracranial findings. No acute arterial occlusions and no significant arterial stenoses within the head or neck. ACDF changes at C5-C6.
--- NOTE | ~2022-03-01 | MR_ITS ---
EXAMINATION: MR BRAIN WITHOUT CONTRAST CLINICAL INFORMATION: TIA. COMPARISON: Head CTA 03/01/2022. TECHNIQUE: Multiplanar, multisequence imaging of the brain was performed without intravenous contrast. FINDINGS: There is no acute infarction, mass, hemorrhage, or extra-axial collection. The ventricles, sulci, and basilar cisterns are normal in size and configuration. The flow voids of the major intracranial arteries appear intact. The bones and extracranial soft tissues are unremarkable. MR/MR head/brain wo con IMPRESSION: No acute infarct, mass lesion, intracranial hemorrhage, or evidence of hydrocephalus.
[2022-03-01 12:11] VITALS: BP 165/76; PULSE 80; RESP 18; TEMP 36.1; O2SAT 98; BMI 27.6
[2022-03-01 12:30] LABS: MANUAL DIFF FLAG NO
[2022-03-01 12:31] LABS: Basophils Percent Auto 0.3 % (0-2); Eosinophils Absolute Auto 0.1 X10*3/uL (0.0-0.4); Eosinophils Percent Auto 1.9 % (0-4); Hematocrit 41.5 % (37.0-47.0); Imm Gran Abs Auto 0.02 X10*3/uL (0.00-0.03); Imm Gran Pct Auto 0.3 % (0.0-0.4); Lymphocytes Absolute Auto 2.7 X10*3/uL (1.2-4.9); Lymphocytes Percent Auto 42.8 % (20-40); Mean Corpuscular HGB Conc 33.7 g/dl (31.0-35.0); Mean Corpuscular Hemoglobin 29.4 pg (27.0-33.0); Mean Corpuscular Volume 87.2 fL (80.0-98.0); Mean Platelet Volume 11.3 fL (9.4-12.3); Monocytes Absolute Auto 0.4 X10*3/uL (0.1-1.2); Monocytes Percent Auto 6.3 % (2-11); Neutrophils Percent Auto 48.4 % (45-73); Platelet Count 159 X10*3/uL (160-400); Red Blood Count 4.76 X10*6/uL (4.20-5.50); Red Cell Distribution Width 12.6 % (11.0-16.0); White Blood Count 6.2 X10*3/uL (4.8-10.8)
[2022-03-01 12:53] LABS: Anion Gap 14 (12-20); Blood Urea Nitrogen 11 mg/dL (9-16); Carbon Dioxide 21 mmol/L (22-29); Chloride 101 mmol/L (96-108); Creatinine Clr Calc Pharmacy 61.5; Estimated Glomerular Filt Rate > 60; Glucose Random 362 mg/dL (60-115); Potassium 4.1 mmol/L (3.3-5.1); Sodium 132 mmol/L (135-145)
--- NOTE | 2022-03-01 13:35 | ECG_ITS ---
Test Reason : NEURO SYMPTOMS Blood Pressure : / mmHG Vent. Rate : 072 BPM Atrial Rate : 072 BPM P-R Int : 156 ms QRS Dur : 076 ms QT Int : 390 ms P-R-T Axes : 076 035 058 degrees QTc Int : 427 ms Normal sinus rhythm with sinus arrhythmia Septal infarct , age undetermined Abnormal ECG When compared with ECG of 01-MAR-2022 12:14, No significant change was found Referred By: Jayden Garcia Electronically Signed By:Jesús Elliott
--- NOTE | 2022-03-01 13:54 | ED.NEUROSD ---
HPI - Neuro Symptoms/Deficit General Chief Complaint: Neuro Symptoms/Deficit Stated Complaint: dizzy; facial drooping Time Seen by Provider: 03/01/22 13:35 Source: patient Mode of arrival: ambulatory Limitations: no limitations History of Present Illness HPI Narrative: 61 years old female came in for evaluation of dizziness and right-sided weakness and numbness. Symptoms started at 03:00 when patient woke up felt very dizzy as the room is spinning patient did not feel good then, then at 07:00 patient was holding into the wall to walk around the house because of the severe dizziness and her son noted that the patient had a right facial droop, and patient started to feel right-sided weakness and numbness lasted for about 15-20 minutes then right-sided weakness and numbness improved with persistent of dizziness. Related Data Home Medications Medication Instructions Recorded Confirmed diazepam 10 mg tablet 10 mg PO BID PRN Muscle Spasm 09/03/20 03/01/22 pen needle, diabetic 31 gauge x #50 ea 09/03/20 11/11/2116 alpha lipoic acid 600 mg capsule 600 mg PO BIDAC 03/01/22 03/01/22 aspirin 81 mg tablet,delayed 81 mg PO Q48H 03/01/22 03/01/22 release carisoprodol 350 mg tablet 350 mg PO DAILY PRN Muscle Spasm 03/01/22 03/01/22 cyanocobalamin (vitamin B-12) 1,000 mcg PO DAILY 03/01/22 03/01/22 1,000 mcg tablet erythromycin 5 mg/gram (0.5 %) eye 0.5 inch ophthalmic-Right BID PRN 03/01/22 03/01/22 ointment EYE INFECTION melatonin 5 mg tablet 1 tab PO BEDTIME 03/01/22 03/01/22 oxcarbazepine 150 mg tablet 1 tab PO BEDTIME 03/01/22 03/01/22 vitamin B complex 1 tab PO DAILY 03/01/22 03/01/22 Previous Rx's Medication Instructions Recorded blood-glucose meter #1 ea 07/31/20 blood sugar diagnostic (FreeStyle 1 strip miscellaneous BID for 08/09/20 Lite Strips) diabetes mellitus #200 strips blood pressure monitor #1 ea 09/03/20 albuterol sulfate 90 mcg/actuation 1 - 2 puff inhalation Q4-6H PRN 09/08/20 aerosol inhaler for dyspnea #8.5 grams pen needle, diabetic, safety 30 #100 ea 02/16/21 gauge x 5/16 (Assure ID Pen Needle) glipizide 10 mg tablet 10 mg PO DAILY 90 days #90 tabs 03/17/21 ibuprofen 600 mg tablet 600 mg PO TID PRN pain 90 days 07/24/21 #270 tabs linagliptin 5 mg tablet (Tradjenta) 5 mg PO DAILY 30 days #30 tabs 08/19/21 metformin 1,000 mg tablet 1,000 mg PO BID #180 tabs 10/12/21 ondansetron 4 mg disintegrating 4 mg PO Q8H PRN nausea and 10/20/21 tablet vomiting 7 days #21 tabs cholecalciferol (vitamin D3) 25 25 mcg PO DAILY 90 days #90 caps 11/15/21 mcg (1,000 unit) capsule Allergies Allergy/AdvReac Type Severity Reaction Status Date / Time nickel Allergy Severe Rash Verified 11/11/21 15:18 acetaminophen [Percocet] Allergy Intermediate vomiting Verified 11/11/21 15:18 cyclobenzaprine Allergy Intermediate HEADACHE,DI Verified 11/11/21 15:18 [CYCLOBENZAPRINE] ZZINESS divalproex sodium [Depakote] Allergy Intermediate increase Verified 11/11/21 15:18 liver enzymes methocarbamol [METHOCARBAMOL] Allergy Intermediate TICS Verified 11/11/21 15:18 oxycodone [From PERCOCET] Allergy Intermediate VOMITING Verified 11/11/21 15:18 liraglutide [From Victoza] AdvReac Severe hypoglycemi Verified 11/11/21 15:18 a risperidone [RISPERIDONE] AdvReac Severe CHEST PAIN Verified 11/11/21 15:18 canagliflozin [Invokana] AdvReac Intermediate confusion Verified 11/11/21 15:18 dulaglutide [Trulicity] AdvReac Intermediate abdominal Verified 11/11/21 15:18 bloating, numbness, myalgia Narcotics Allergy Mild dizzy, sick Uncoded 11/11/21 15:18 Review of Systems Review of Systems: All other systems are reviewed and are negative Constitutional: Reports as per HPI and Reports no additional constitutional complaints Eyes: Reports as per HPI and Reports no additional eye complaints Reports system reviewed and no additional complaints, except as documented Cardiovascular: Reports as per HPI and Reports no additional cardiovascular complaints Respiratory: Reports as per HPI and Reports no additional respiratory complaints Gastrointestinal: Reports as per HPI and Reports no additional gastrointestinal complaints Genitourinary: Reports no additional female genitourinary complaints Musculoskeletal: Reports no additional musculoskeletal complaints Skin/Breast: Reports system reviewed and no additional complaints, except as docu Psychiatric: Reports no additional psychiatric complaints Endocrine: Reports no additional endocrine complaints Hematologic/Lymphatic: Reports no additional hematologic/lymphatic complaints Allergic/Immunologic: Reports no additional allergic/immunologic complaints Reports system reviewed and no additional complaints, except as documented and Reports Abnormal speech present [facility] Past Medical History Medical History Chest pain Chronic neck pain Diabetes mellitus Fibromyalgia Herpes simplex virus (HSV) infection Intertrigo Mixed hyperlipidemia Nickel allergy Nickel dermatitis Polyarthralgia Renal calculi Shortness of breath Surgical History History of section History of colonoscopy History of discectomy History of laparoscopic cholecystectomy History of laparoscopy History of prior ablation treatment History of tubal ligation Family History Family History Father Prostate cancer Diabetes High cholesterol HTN (hypertension) Mother Liver problem Diabetes High cholesterol HTN (hypertension) Family/Other Diabetes High cholesterol HTN (hypertension) Cancer Social History Social History Household Members: Children Housing: Apartment Alcohol intake: never Patient Tobacco Use Status: Former Tobacco user Tobacco use type: Cigarette Years Smoked: 18 e-Cigarette/Vaping Use: Never Used Second Hand Smoke Exposure: No Advance Directives: No Advance Directives Information Provided: No service: No Current occupational status: unemployed Sexual orientation: Straight/Heterosexual Gender identity: Female Physical Exam Vital Signs: Vital Signs: Last Vital Signs Temp 98.4 F 03/01/22 14:55 Pulse 81 03/01/22 14:55 Resp 19 03/01/22 14:55 BP 125/80 03/01/22 14:55 Pulse Ox 99 03/01/22 14:55 O2 Del Method 03/01/22 14:55 BMI result Body Mass Index 27.6 Vital signs have been reviewed as appeared to be correct. Blood pressure normal. Heart rate normal. Respiration rate normal. Temperature normal. Oxygen saturation normal. Appearance: Alert. Oriented X3. No acute distress. Head: Normal external exam. Normocephalic. Atraumatic. No Dan signs noted. No raccoon eyes noted Eyes: PERRLA. EOMI. Conjunctiva and sclera normal. Eyelids normal. ENT: TM's Normal. Pharynx normal. Uvula midline. Moist mucous membranes. No trismus noted. No drooling noted. No muffled voice noted. Neck: Normal inspection. Neck supple. FROM. No adenopathy. Thyroid Normal. No meningeal signs. No neck mass noted. CVS: Normal heart rate and rhythm. Heart sound normal. No murmurs noted. Pulses normal throughout. Respiratory: No respiratory distress. Painless inspiration. Breath sounds normal. No wheezes/rales/rhonchi noted. Chest nontender. No accessory muscle usage noted or decreased air movement noted. Abdomen: Soft and nontender. Bowel sounds normal in all 4 quadrants. No distention noted. No organomegaly noted. No visible injury noted. Back: No CVA tenderness. Full range of motion noted. Skin: Skin warm and dry. Normal skin color. Normal skin turgor. No rashes/lesions/lacerations noted. Extremities: No lower extremity edema. Extremities exhibit normal range of motion. Extremities nontender. Neuro: Oriented X 3. Cranial nerve exam: II-XII are grossly intact No motor deficit. No sensory deficit. Reflexes normal. Course Course Course Narrative: Assessment and plan. 61-year-old female came in with TIA symptoms and vertigo, negative neuro exam at the moment, CT/CTA of the head and neck is unremarkable for acute major artery occlusion. Will admit for further neurological evaluation. MDM - Neuro Symptoms/Deficit Lab Data Attestation: I reviewed the patient's lab results. Result diagrams: 03/01/22 12:17 03/01/22 12:17 Labs: Lab Results 03/01/22 03/01/22 03/01/22 Range/Units 12:17 12:17 14:03 WBC 6.2 (4.8-10.8) X10*3/uL RBC 4.76 (4.20-5.50) X10*6/uL Hgb 14.0 (12.0-16.0) g/dl Hct 41.5 (37.0-47.0) % MCV 87.2 (80.0-98.0) fL MCH 29.4 (27.0-33.0) pg MCHC 33.7 (31.0-35.0) g/dl RDW 12.6 (11.0-16.0) % Plt Count 159 L (160-400) X10*3/uL MPV 11.3 (9.4-12.3) fL Immature Gran % (Auto) 0.3 (0.0-0.4) % Neut % (Auto) 48.4 (45-73) % Lymph % (Auto) 42.8 H (20-40) % Mingo % (Auto) 6.3 (2-11) % Eos % (Auto) 1.9 (0-4) % Baso % (Auto) 0.3 (0-2) % Lymph # (Auto) 2.7 (1.2-4.9) X10*3/uL Mingo # (Auto) 0.4 (0.1-1.2) X10*3/uL Eos # (Auto) 0.1 (0.0-0.4) X10*3/uL Baso # (Auto) 0.0 (0.0-0.2) X10*3/uL Abs Immat Gran (auto) 0.02 (0.00-0.03) X10*3/uL Absolute Neuts (auto) 3.0 (2.0-8.3) x10*3/uL Absolute Nucleated RBC 0.000 (0.0-0.012) X10*3/uL Nucleated RBC % (auto) 0.0 (0.0-0.2) /100WBC Sodium 132 L (135-145) mmol/L Potassium 4.1 (3.3-5.1) mmol/L Chloride 101 (96-108) mmol/L Carbon Dioxide 21 L (22-29) mmol/L Anion Gap 14 (12-20) BUN 11 D (9-16) mg/dL Creatinine 0.78 (0.5-1.4) mg/dL Estim Creat Clear Calc 61.5 Estimated GFR > 60 Random Glucose 362 H* (60-115) mg/dL Calcium 9.0 D (8.4-10.2) mg/dL Troponin I High Sens < 3.5 (<3.5-17.0) ng/L B-Natriuretic Peptide (<100) pg/mL Influenza Type A (PCR) (Negative) Influenza Type B (PCR) (Negative) RSV RNA Qual (PCR) (Negative) SARS-CoV-2 RNA (RT-PCR) (Negative) 03/01/22 03/01/22 Range/Units 14:03 14:03 WBC (4.8-10.8) X10*3/uL RBC (4.20-5.50) X10*6/uL Hgb (12.0-16.0) g/dl Hct (37.0-47.0) % MCV (80.0-98.0) fL MCH (27.0-33.0) pg MCHC (31.0-35.0) g/dl RDW (11.0-16.0) % Plt Count (160-400) X10*3/uL MPV (9.4-12.3) fL Immature Gran % (Auto) (0.0-0.4) % Neut % (Auto) (45-73) % Lymph % (Auto) (20-40) % Mingo % (Auto) (2-11) % Eos % (Auto) (0-4) % Baso % (Auto) (0-2) % Lymph # (Auto) (1.2-4.9) X10*3/uL Mingo # (Auto) (0.1-1.2) X10*3/uL Eos # (Auto) (0.0-0.4) X10*3/uL Baso # (Auto) (0.0-0.2) X10*3/uL Abs Immat Gran (auto) (0.00-0.03) X10*3/uL Absolute Neuts (auto) (2.0-8.3) x10*3/uL Absolute Nucleated RBC (0.0-0.012) X10*3/uL Nucleated RBC % (auto) (0.0-0.2) /100WBC Sodium (135-145) mmol/L Potassium (3.3-5.1) mmol/L Chloride (96-108) mmol/L Carbon Dioxide (22-29) mmol/L Anion Gap (12-20) BUN (9-16) mg/dL Creatinine (0.5-1.4) mg/dL Estim Creat Clear Calc Estimated GFR Random Glucose (60-115) mg/dL Calcium (8.4-10.2) mg/dL Troponin I High Sens (<3.5-17.0) ng/L B-Natriuretic Peptide < 10 (<100) pg/mL Influenza Type A (PCR) NEGATIVE (Negative) Influenza Type B (PCR) NEGATIVE (Negative) RSV RNA Qual (PCR) NEGATIVE (Negative) SARS-CoV-2 RNA (RT-PCR) NEGATIVE (Negative) Imaging Data Chest x-ray: Attestation: I personally reviewed and interpreted this imaging study as follows: Radiologist's impression: No acute cardiopulmonary process seen. There is moderate spondylosis dorsal spine. ? CT head/CTA head and neck: Attestation: I personally reviewed and interpreted this imaging study as follows: Radiologist's impression: No acute intracranial findings. No acute arterial occlusions and no significant arterial stenoses within the head or neck. ACDF changes at C5-C6. NIH Stroke Scale Level of Consciousness: Alert Level of Consciousness Questions: Answers both questions correctly Level of Consciousness Commands: Performs both tasks correctly Best Gaze: Normal Visual: No visual loss Facial Palsy: Normal Motor Arm (Right): No drift Motor Arm (Left): No drift Motor Leg (Right): No drift Motor Leg (Left): No drift Limb Ataxia: Absent Sensory: Normal Best Language: No aphasia Dysarthia: Normal Extinction and Inattention: No abnormality Score: 0 Discharge Plan Discharge Clinical Impression: Brain TIA, Vertigo Patient Disposition: Admitted As Inpatient
[2022-03-01 14:36] LABS: Troponin-I High Sensitivity < 3.5 ng/L (<3.5-17.0)
[2022-03-01 14:37] LABS: B Type Natriuretic Peptide < 10 pg/mL (<100)
[2022-03-01 14:55] VITALS: BP 125/80; PULSE 81; RESP 19; TEMP 36.9; O2SAT 99
[2022-03-01 14:58] LABS: Influenza A PCR NEGATIVE (Negative); Influenza B PCR NEGATIVE (Negative); Resp Syncy Virus RNA Qual PCR NEGATIVE (Negative); SARS COV2 PCR INHOUSE NEGATIVE (Negative)
[2022-03-01] MEDS: 0.9 % Sodium Chloride 1,000 ML 999 ML IV (15:41)
[2022-03-01] MEDS: iohexoL 350 MG/ML 100 ML INFUS..BTL IV (15:44)
--- NOTE | 2022-03-01 16:04 | PHA.MEDREC ---
Pharmacy Consult ? Medication Reconciliation Pharmacy has completed the medication reconciliation.
[2022-03-01 17:50] VITALS: BP 151/76; PULSE 80; RESP 20; O2SAT 99
[2022-03-01] MEDS: Aspirin 325 MG TABLET PO (17:54)
[2022-03-01] MEDS: Atorvastatin Calcium 80 MG TABLET PO (17:54)
[2022-03-01 17:56] LABS: Hematocrit 39.4 % (37.0-47.0); Hemoglobin 13.3 g/dl (12.0-16.0); Mean Corpuscular HGB Conc 33.8 g/dl (31.0-35.0); Mean Corpuscular Hemoglobin 29.1 pg (27.0-33.0); Mean Corpuscular Volume 86.2 fL (80.0-98.0); Mean Platelet Volume 11.3 fL (9.4-12.3); Platelet Count 150 X10*3/uL (160-400); Red Blood Count 4.57 X10*6/uL (4.20-5.50); Red Cell Distribution Width 12.5 % (11.0-16.0); White Blood Count 6.6 X10*3/uL (4.8-10.8)
[2022-03-01] MEDS: Enoxaparin Sodium 40 MG/0.4 ML SYRINGE SUBCUT (17:56)
[2022-03-01] MEDS: Clopidogrel Bisulfate 300 MG TABLET PO (17:56)
--- NOTE | 2022-03-01 18:06 | P.HPHOSP_ITS ---
History of Present Illness Date of Service: 03/01/22 Chief Complaint: Dizziness with right facial asymmetry 61-year-old female with known history of poorly controlled type 2 diabetes with last known A1c of 14 as well as hypertension and unknown lipid status presents with acute onset of dizziness, right-sided facial asymmetry, and right-sided weakness. She states she returned home from a walk and her son who is an RN noticed that she was have difficulty speaking and her face was drooping on the right. She told him she also had numbness and weakness in her arm and leg. She presents to the emergency room where CTA of the head and neck and CT of the head failed to demonstrate any acute abnormalities. Pressure was hypertensive 150/70. Symptoms resolved shortly after arrival to emergency room however diz ziness has persisted. Review of Systems Review of Systems: denies chest pain Denies nausea vomiting diarrhea Denies fever chills Denies shortness of breath Admits to dizziness i is unrelated to head position PMFSH Medical History Chest pain Chronic neck pain Diabetes mellitus Fibromyalgia Herpes simplex virus (HSV) infection Intertrigo Mixed hyperlipidemia Nickel allergy Nickel dermatitis Polyarthralgia Renal calculi Shortness of breath Family History Father Prostate cancer Diabetes High cholesterol HTN (hypertension) Mother Liver problem Diabetes High cholesterol HTN (hypertension) Family/Other Diabetes High cholesterol HTN (hypertension) Cancer Surgical History History of section History of colonoscopy History of discectomy History of laparoscopic cholecystectomy History of laparoscopy History of prior ablation treatment History of tubal ligation Social History Household Members: Children Housing: Apartment Alcohol intake: never Patient Tobacco Use Status: Former Tobacco user Tobacco use type: Cigarette Years Smoked: 18 e-Cigarette/Vaping Use: Never Used Second Hand Smoke Exposure: No Use of substances other than those prescribed or required for medical reasons: No Advance Directives: No Advance Directives Information Provided: No Patient : No service: No Current occupational status: unemployed Sexual orientation: Straight/Heterosexual Gender identity: Female Meds Allergies Allergy/AdvReac Type Severity Reaction Status Date / Time nickel Allergy Severe Rash Verified 11/11/21 15:18 acetaminophen [Percocet] Allergy Intermediate vomiting Verified 11/11/21 15:18 cyclobenzaprine Allergy Intermediate HEADACHE,DI Verified 11/11/21 15:18 [CYCLOBENZAPRINE] ZZINESS divalproex sodium [Depakote] Allergy Intermediate increase Verified 11/11/21 15:18 liver enzymes methocarbamol [METHOCARBAMOL] Allergy Intermediate TICS Verified 11/11/21 15:18 oxycodone [From PERCOCET] Allergy Intermediate VOMITING Verified 11/11/21 15:18 liraglutide [From Victoza] AdvReac Severe hypoglycemi Verified 11/11/21 15:18 a risperidone [RISPERIDONE] AdvReac Severe CHEST PAIN Verified 11/11/21 15:18 canagliflozin [Invokana] AdvReac Intermediate confusion Verified 11/11/21 15:18 dulaglutide [Trulicity] AdvReac Intermediate abdominal Verified 11/11/21 15:18 bloating, numbness, myalgia Narcotics Allergy Mild dizzy, sick Uncoded 11/11/21 15:18 Active Medications: Current Medications Albuterol Sulfate (Albuterol Sulfate 90 Mcg 8 Gm Inhaler) 1 - 2 puff INHALE Q4H PRN PRN Reason: for dyspnea Carisoprodol (Carisoprodol 350 Mg Tablet) 350 mg PO DAILY PRN PRN Reason: Muscle Spasm Cyanocobalamin (Cyanocobalamin (Vitamin B-12) 1,000 Mcg Tablet) 1,000 mcg PO DAILY [facility] Diazepam (Diazepam 5 Mg Tablet) 10 mg PO BID PRN PRN Reason: Muscle Spasm Enoxaparin Sodium (Enoxaparin Sodium 40 Mg/0.4 Ml Syringe) 40 mg SUBCUT Q24H [facility] Last Admin: 03/01/22 17:56 Dose: 40 mg Erythromycin (Erythromycin Base 0.5% Oph Oin 1 Gm Tube) 1.27 cm EYE-RIGHT BID PRN PRN Reason: EYE INFECTION Glipizide (Glipizide 10 Mg Tablet) 10 mg PO DAILY [facility] Insulin Human Lispro (Insulin Lispro 100 Unit/Ml 3 Ml Vial) 0 unit SUBCUT QIDACHS [facility]; Protocol Lisinopril (Lisinopril 5 Mg Tablet) 5 mg PO DAILY [facility]; Protocol Melatonin (Melatonin 3 Mg Tablet) 6 mg PO BEDTIME [facility] Metformin HCl (Metformin Hcl 1,000 Mg Tablet) 1,000 mg PO BID [facility] Multivitamins/Vitamin C (Multivitamin Tablet) 1 tab PO DAILY [facility] Non-Formulary Medication (Linagliptin [Tradjenta]) 5 mg PO DAILY [facility] Ondansetron HCl (Ondansetron Odt 4 Mg Tab.Rapdis) 4 mg TRANSLINGU Q8H PRN PRN Reason: nausea and vomiting Oxcarbazepine (Oxcarbazepine 150 Mg Tablet) 150 mg PO BEDTIME [facility] Pharmacy Consult (Consult Rx Perform Med Rec) 1 each MISCELLANE ONCE PRN PRN Reason: Consult order Sodium Chloride (0.9 % Sodium Chloride Flush 3 Ml Syringe) 3 ml IVFLUSH QSHIFT [facility] Vitamin D (Cholecalciferol (Vitamin D3) 25 Mcg Tablet) 25 mcg PO DAILY [facility] Home Medications Medication Instructions Recorded Confirmed Last Taken Type diazepam 10 mg tablet 10 mg PO BID PRN Muscle Spasm 09/03/20 03/01/22 Unknown History pen needle, diabetic 31 gauge x #50 ea 09/03/20 11/11/21 Unknown History 316 alpha lipoic acid 600 mg capsule 600 mg PO BIDAC 03/01/22 03/01/22 Unknown History aspirin 81 mg tablet,delayed 81 mg PO Q48H 03/01/22 03/01/22 Unknown History release carisoprodol 350 mg tablet 350 mg PO DAILY PRN Muscle Spasm 03/01/22 03/01/22 Unknown History cyanocobalamin (vitamin B-12) 1,000 mcg PO DAILY 03/01/22 03/01/22 03/01/22 History 1,000 mcg tablet erythromycin 5 mg/gram (0.5 %) eye 0.5 inch ophthalmic-Right BID PRN 03/01/22 03/01/22 Unknown History ointment EYE INFECTION melatonin 5 mg tablet 1 tab PO BEDTIME 03/01/22 03/01/22 02/28/22 History oxcarbazepine 150 mg tablet 1 tab PO BEDTIME 03/01/22 03/01/22 Unknown History vitamin B complex 1 tab PO DAILY 03/01/22 03/01/22 03/01/22 History Physical Exam Vital Signs and Narrative: Vital Signs: Last Vital Signs Temp 98.4 F 03/01/22 14:55 Pulse 80 03/01/22 17:50 Resp 20 03/01/22 17:50 BP 151/76 H 03/01/22 17:50 Pulse Ox 99 03/01/22 17:50 O2 Del Method 03/01/22 17:50 BMI result Body Mass Index 27.6 Const: Other: awake, anxious no acute distress HEENT: Other: no facial asymmetry Neck: Other: no appreciable carotid bruits Resp: Other: clear to auscultation bilaterally no rales rhonchi or wheezes Cardio: Other: no S4; positive S1-S2; no S3 murmurs rubs or gallops. Regular rate and rhythm GI: Other: soft nontender nondistended with nor Neuro: Other: cranial nerves 2-12 were grossly intact as tested. Motor is 5/5 all extremities. Sensation is intact. Speech is fluent. Cognition appropriate. gait normal Extrem: Other: no edema bilaterally Results Labs CBC and Chem 7: 03/01/22 17:50 03/01/22 12:17 Labs: Laboratory Results - last 24 hr 03/01/22 03/01/22 03/01/22 12:17 12:17 14:03 MCV 87.2 MCH 29.4 MCHC 33.7 RDW 12.6 Plt Count 159 L MPV 11.3 Immature Gran % (Auto) 0.3 Neut % (Auto) 48.4 Lymph % (Auto) 42.8 H Coffey % (Auto) 6.3 Eos % (Auto) 1.9 Baso % (Auto) 0.3 Lymph # (Auto) 2.7 [place]y # (Auto) 0.4 Eos # (Auto) 0.1 Baso # (Auto) 0.0 Abs Immat Gran (auto) 0.02 Absolute Neuts (auto) 3.0 Absolute Nucleated RBC 0.000 Nucleated RBC % (auto) 0.0 Anion Gap 14 Estim Creat Clear Calc 61.5 Estimated GFR > 60 Random Glucose 362 H* Calcium 9.0 D Troponin I High Sens < 3.5 B-Natriuretic Peptide Influenza Type A (PCR) Influenza Type B (PCR) RSV RNA Qual (PCR) SARS-CoV-2 RNA (RT-PCR) 03/01/22 03/01/22 03/01/22 14:03 14:03 17:50 MCV 86.2 MCH 29.1 MCHC 33.8 RDW 12.5 Plt Count 150 L MPV 11.3 Immature Gran % (Auto) Neut % (Auto) Lymph % (Auto) [place]offey % (Auto) Eos % (Auto) Baso % (Auto) Lymph # (Auto) [place]y # (Auto) Eos # (Auto) Baso # (Auto) Abs Immat Gran (auto) Absolute Neuts (auto) Absolute Nucleated RBC 0.000 Nucleated RBC % (auto) 0.0 Anion Gap Estim Creat Clear Calc Estimated GFR Random Glucose Calcium Troponin I High Sens B-Natriuretic Peptide < 10 Influenza Type A (PCR) NEGATIVE Influenza Type B (PCR) NEGATIVE RSV RNA Qual (PCR) NEGATIVE SARS-CoV-2 RNA (RT-PCR) NEGATIVE Imaging Radiologist's Impressions: Impressions Chest X-Ray 03/01/22 14:50 IMPRESSION: No acute cardiopulmonary process seen. There is moderate spondylosis dorsal spine. Head/Neck CTA 03/01/22 15:57 IMPRESSION: No acute intracranial findings. No acute arterial occlusions and no significant arterial stenoses within the head or neck. ACDF changes at C5-C6. 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 Initial workup in emergency room including head and neck CTA failed to demonstrate any acute abnormalities. Symptom duration was greater than 60 minutes and symptoms resolved in the emergency room save dizziness. Patient states her dizziness is not affected by head position 1. TIA( ABCD 2 score 7) - given initial dose of aspirin 325 / Plavix 300 x1 - will continue aspirin at 81 mg daily and Plavix at 75 mg daily x3 weeks - check MRI of brain/ ultrasound carotids/2D echo - observe on telemetry - plan reviewed with Neurology who will see in a.m. 2. Diabetes II ( poorly controlled. . . Last A1c October 2021 [14]) - continue glipizide linagliptin and metformin at outpatient dosing -Lispro correctional scale.... will likely need long-acting insulin -ADA diet -HgA1C in am 3.HTN -poorly control...no meds -add lisinopril and titrate as indicated 4. Hyperlipidemia -lipitor 80mg now and daily -check panel in am Lovenox Full code Will require 2 midnights going forward to complete workup for TIA /Neuro consult and initiation of therapies. This cannot be achieved and a lesser acute s etting. High risk for outpatient failure Quality Stroke Does the patient have a stroke diagnosis?: No VTE Prior VTE?: No VTE Risk Level:: Medical - moderate - high VTE Device Contraindication: Treatment Not Indicated VTE Drug Contraindication: N/A - Med Ordered
[2022-03-01 18:44] VITALS: PULSE 134; RESP 30; O2SAT 100
[2022-03-01 18:48] VITALS: BP 140/82
[2022-03-01] MEDS: lisinopriL 5 MG TABLET PO (18:48)
[2022-03-02] VITALS: BP 120/55; PULSE 65; RESP 24; TEMP 36.8; O2SAT 100
--- NOTE | 2022-03-02 00:18 | PC.NURSE ---
Addendum entered by Trish Lynn 03/02/22 07:00: report given to ZAK Thompson Original Note: report received from ZAK Flores. pt is alert and oriented. resting in bed. no signs of acute distress. pt on continuos cardiac monitoring. denies any pain at this moment
[2022-03-02 01:53] VITALS: BP 99/57; PULSE 72; RESP 16; TEMP 36.8; O2SAT 96
[2022-03-02 04:46] LABS: MANUAL DIFF FLAG NO
[2022-03-02 04:47] LABS: Basophils Percent Auto 0.3 % (0-2); Eosinophils Absolute Auto 0.1 X10*3/uL (0.0-0.4); Eosinophils Percent Auto 2.1 % (0-4); Hematocrit 40.5 % (37.0-47.0); Hemoglobin 13.8 g/dl (12.0-16.0); Imm Gran Abs Auto 0.01 X10*3/uL (0.00-0.03); Imm Gran Pct Auto 0.2 % (0.0-0.4); Lymphocytes Absolute Auto 3.2 X10*3/uL (1.2-4.9); Lymphocytes Percent Auto 51.7 % (20-40); Mean Corpuscular HGB Conc 34.1 g/dl (31.0-35.0); Mean Corpuscular Hemoglobin 29.7 pg (27.0-33.0); Mean Corpuscular Volume 87.3 fL (80.0-98.0); Mean Platelet Volume 12.2 fL (9.4-12.3); Monocytes Absolute Auto 0.5 X10*3/uL (0.1-1.2); Monocytes Percent Auto 7.5 % (2-11); Neutrophils Absolute Auto 2.4 x10*3/uL (2.0-8.3); Neutrophils Percent Auto 38.2 % (45-73); Platelet Count 163 X10*3/uL (160-400); Red Blood Count 4.64 X10*6/uL (4.20-5.50); Red Cell Distribution Width 12.6 % (11.0-16.0); White Blood Count 6.2 X10*3/uL (4.8-10.8)
[2022-03-02 05:03] VITALS: BP 109/59; PULSE 62; RESP 14; TEMP 36.7; O2SAT 97
[2022-03-02 05:09] LABS: Cholesterol 211 mg/dL; HDL Cholesterol 33 mg/dL; Triglycerides 551 mg/dL
[2022-03-02 05:10] LABS: Alanine Aminotransferase 26 U/L (0-31); Albumin Level 3.7 g/dL (3.5-5.0); Alkaline Phosphatase 96 U/L (39-117); Anion Gap 10 (12-20); Aspartate Amino Transferase 22 U/L (5-31); Blood Urea Nitrogen 9 mg/dL (9-16); Calcium 9.2 mg/dL (8.4-10.2); Carbon Dioxide 25 mmol/L (22-29); Chloride 105 mmol/L (96-108); Creatinine Clr Calc Pharmacy 70.5; Estimated Glomerular Filt Rate > 60; Glucose Fasting 216 mg/dL (60-99); Potassium 3.9 mmol/L (3.3-5.1); Sodium 136 mmol/L (135-145); Total Protein 6.6 g/dL (6.5-8.0)
[2022-03-02 07:20] LABS: Glucose, Whole Blood 230 mg/dL (60-115)
[2022-03-02] MEDS: Cyanocobalamin (Vitamin B-12) 1,000 MCG TABLET 1000 MCG PO (07:40)
[2022-03-02] MEDS: Multivitamin TABLET 1 TAB PO (07:40)
[2022-03-02] MEDS: lisinopriL 5 MG TABLET PO (07:40)
[2022-03-02] MEDS: Insulin Lispro 100 UNIT/ML 3 ML VIAL SUBCUT ×2 (07:41→12:40)
[2022-03-02] MEDS: Cholecalciferol (Vitamin D3) 25 MCG TABLET PO (07:41)
[2022-03-02 07:44] VITALS: BP 104/72; PULSE 72; RESP 18; TEMP 36.8; O2SAT 100
--- NOTE | 2022-03-02 07:45 | PC.NURSE ---
patient A/0 x4 .neuro intact . perrla . sinus on the monitor . MRI screening done . speech clear . skin pink warm and dry .
[2022-03-02] MEDS: glipiZIDE 10 MG TABLET PO (07:53)
[2022-03-02] MEDS: 0.9 % Sodium Chloride Flush 3 ML SYRINGE IVFLUSH (08:04)
--- NOTE | 2022-03-02 09:59 | MHC.CM.PN ---
CM spoke with Patient on her cell at [phone] and addressed IMM with her (a copy will be placed on the chart and the original will be given to Patient). Home ? new [facility] pending PT eval is the goal and DIANN has initiated and will follow for dc planning. Patient has received Pfizer Vax X3 and her PCP is Dr. An Aguilar.Patient's Son is a RN.
[2022-03-02] MEDS: Aspirin 81 MG TAB.CHEW PO (10:10)
[2022-03-02 10:58] VITALS: BP 115/67; PULSE 70; RESP 15; TEMP 36.2; O2SAT 96
[2022-03-02 12:13] LABS: Glucose, Whole Blood 287 mg/dL (60-115)
--- NOTE | 2022-03-02 13:16 | P.CNNE_ITS ---
History of Present Illness Data of Consult Service Date: 03/02/22 Primary Care Provider: An Aguilar MD HPI Reason for consult: Dizziness 61 years old woman I was asked to see for possibility of stroke presenting with dizziness. She said that she was having headaches. This particular episode started with a feeling of dizziness and spinning with nausea and then her family noted that her right side of face was somewhat flat. She felt a tingly feeling on right side of the face that slowly extended to involve right arm and then the whole right side. It took few minutes for this feeling to spread and it lasted for about 30 minutes. After that she had whopping headache that was still going on. She reported that she was having headaches about every 2-3 days in each 1 lasted for hours to a day or more. Review of Systems Review of Systems: No recent cold or flu-like illness or traum PMFSH Past Medical History Medical History Chest pain Chronic neck pain Diabetes mellitus Fibromyalgia Herpes simplex virus (HSV) infection Intertrigo Mixed hyperlipidemia Nickel allergy Nickel dermatitis Polyarthralgia Renal calculi Shortness of breath Family History Family History Father Prostate cancer Diabetes High cholesterol HTN (hypertension) Mother Liver problem Diabetes High cholesterol HTN (hypertension) Family/Other Diabetes High cholesterol HTN (hypertension) Cancer Surgical History Surgical History History of section History of colonoscopy History of discectomy History of laparoscopic cholecystectomy History of laparoscopy History of prior ablation treatment History of tubal ligation Social History Social History Household Members: Children Housing: Apartment Alcohol intake: never Patient Tobacco Use Status: Former Tobacco user Tobacco use type: Cigarette Years Smoked: 18 e-Cigarette/Vaping Use: Never Used Second Hand Smoke Exposure: No Use of substances other than those prescribed or required for medical reasons: No Advance Directives: No Advance Directives Information Provided: No Patient : No service: No Current occupational status: disabled Sexual orientation: Straight/Heterosexual Gender identity: Female Meds Allergies Allergy/AdvReac Type Severity Reaction Status Date / Time nickel Allergy Severe Rash Verified 11/11/21 15:18 acetaminophen [Percocet] Allergy Intermediate vomiting Verified 11/11/21 15:18 cyclobenzaprine Allergy Intermediate HEADACHE,DI Verified 11/11/21 15:18 [CYCLOBENZAPRINE] ZZINESS divalproex sodium [Depakote] Allergy Intermediate increase Verified 11/11/21 15:18 liver enzymes methocarbamol [METHOCARBAMOL] Allergy Intermediate TICS Verified 11/11/21 15:18 oxycodone [From PERCOCET] Allergy Intermediate VOMITING Verified 11/11/21 15:18 liraglutide [From Victoza] AdvReac Severe hypoglycemi Verified 11/11/21 15:18 a risperidone [RISPERIDONE] AdvReac Severe CHEST PAIN Verified 11/11/21 15:18 canagliflozin [Invokana] AdvReac Intermediate confusion Verified 11/11/21 15:18 dulaglutide [Trulicity] AdvReac Intermediate abdominal Verified 11/11/21 15:18 bloating, numbness, myalgia Narcotics Allergy Mild dizzy, sick Uncoded 11/11/21 15:18 Active Medications: Current Medications Albuterol Sulfate (Albuterol Sulfate 90 Mcg 8 Gm Inhaler) 1 - 2 puff INHALE Q4H PRN PRN Reason: for dyspnea Aspirin (Aspirin 81 Mg Tab.Chew) 81 mg PO DAILY COUNT INCLUDES THE [facility] Last Admin: 03/02/22 10:10 Dose: 81 mg Carisoprodol (Carisoprodol 350 Mg Tablet) 350 mg PO DAILY PRN PRN Reason: Muscle Spasm Clopidogrel Bisulfate (Clopidogrel Bisulfate 75 Mg Tablet) 75 mg PO DAILY COUNT INCLUDES THE [facility] Last Admin: 03/02/22 10:12 Dose: Not Given Cyanocobalamin (Cyanocobalamin (Vitamin B-12) 1,000 Mcg Tablet) 1,000 mcg PO DAILY COUNT INCLUDES THE [facility] Last Admin: 03/02/22 07:40 Dose: 1,000 mcg Diazepam (Diazepam 5 Mg Tablet) 10 mg PO BID PRN PRN Reason: Muscle Spasm Enoxaparin Sodium (Enoxaparin Sodium 40 Mg/0.4 Ml Syringe) 40 mg SUBCUT Q24H COUNT INCLUDES THE [facility] Last Admin: 03/01/22 17:56 Dose: 40 mg Erythromycin (Erythromycin Base 0.5% Oph Oin 1 Gm Tube) 1.27 cm EYE-RIGHT BID PRN PRN Reason: EYE INFECTION Glipizide (Glipizide 10 Mg Tablet) 10 mg PO DAILY COUNT INCLUDES THE [facility] Last Admin: 03/02/22 07:53 Dose: 10 mg Insulin Human Lispro (Insulin Lispro 100 Unit/Ml 3 Ml Vial) 0 unit SUBCUT QIDACHS COUNT INCLUDES THE [facility]; Protocol Last Admin: 03/02/22 12:40 Dose: 6 unit Lisinopril (Lisinopril 5 Mg Tablet) 5 mg PO DAILY COUNT INCLUDES THE [facility]; Protocol Last Admin: 03/02/22 07:40 Dose: 5 mg Melatonin (Melatonin 3 Mg Tablet) 6 mg PO BEDTIME COUNT INCLUDES THE [facility] Last Admin: 03/01/22 21:54 Dose: Not Given Metformin HCl (Metformin Hcl 1,000 Mg Tablet) 1,000 mg PO BID COUNT INCLUDES THE [facility] Multivitamins/Vitamin C (Multivitamin Tablet) 1 tab PO DAILY COUNT INCLUDES THE [facility] Last Admin: 03/02/22 07:40 Dose: 1 tab Non-Formulary Medication (Linagliptin [Tradjenta]) 5 mg PO DAILY COUNT INCLUDES THE [facility] Ondansetron HCl (Ondansetron Odt 4 Mg Tab.Rapdis) 4 mg TRANSLINGU Q8H PRN PRN Reason: nausea and vomiting Oxcarbazepine (Oxcarbazepine 150 Mg Tablet) 150 mg PO BEDTIME COUNT INCLUDES THE [facility] Last Admin: 03/01/22 21:54 Dose: Not Given Pharmacy Consult (Consult Rx Perform Med Rec) 1 each MISCELLANE ONCE PRN PRN Reason: Consult order Sodium Chloride (0.9 % Sodium Chloride Flush 3 Ml Syringe) 3 ml IVFLUSH QSHIFT COUNT INCLUDES THE [facility] Last Admin: 03/02/22 08:04 Dose: 3 ml Vitamin D (Cholecalciferol (Vitamin D3) 25 Mcg Tablet) 25 mcg PO DAILY COUNT INCLUDES THE [facility] Last Admin: 03/02/22 07:41 Dose: 25 mcg Home Medications Medication Instructions Recorded Confirmed Last Taken Type diazepam 10 mg tablet 10 mg PO BID PRN Muscle Spasm 09/03/20 03/01/22 Unknown History pen needle, diabetic 31 gauge x #50 ea 09/03/20 11/11/21 Unknown History 3/16 alpha lipoic acid 600 mg capsule 600 mg PO BIDAC 03/01/22 03/01/22 Unknown History aspirin 81 mg tablet,delayed 81 mg PO Q48H 03/01/22 03/01/22 Unknown History release carisoprodol 350 mg tablet 350 mg PO DAILY PRN Muscle Spasm 03/01/22 03/01/22 Unknown History cyanocobalamin (vitamin B-12) 1,000 mcg PO DAILY 03/01/22 03/01/22 03/01/22 History 1,000 mcg tablet erythromycin 5 mg/gram (0.5 %) eye 0.5 inch ophthalmic-Right BID PRN 03/01/22 03/01/22 Unknown History ointment EYE INFECTION melatonin 5 mg tablet 1 tab PO BEDTIME 03/01/22 03/01/22 02/28/22 History oxcarbazepine 150 mg tablet 1 tab PO BEDTIME 03/01/22 03/01/22 Unknown History vitamin B complex 1 tab PO DAILY 03/01/22 03/01/22 03/01/22 History Physical Exam Vital Signs: Vital Signs: Last Vital Signs Temp 97.2 F 03/02/22 10:58 Pulse 70 03/02/22 10:58 Resp 15 03/02/22 10:58 BP 115/67 03/02/22 10:58 Pulse Ox 96 03/02/22 10:58 O2 Del Method 03/02/22 10:58 BMI result Body Mass Index 27.6 Neuro: Other: he was alert and awake with normal spontaneity of speech fluency comprehension and affect. Pupils were equal round reactive to light. Face is symmetrical. Tongue is midline. There is no pronator drift. [id number]-htgb testing is normal. Deep tendon reflexes are trace to 1+ with flexor plantars. There is no obvious focal weakness. Speech is normal. Affect is normal. Results Labs CBC & Chem 7: 03/02/22 04:19 03/02/22 04:19 Labs: Short CBC 03/01/22 03/02/22 Range/Units 17:50 04:19 WBC 6.6 6.2 (4.8-10.8) X10*3/uL Hgb 13.3 13.8 (12.0-16.0) g/dl Hct 39.4 40.5 (37.0-47.0) % Plt Count 150 L 163 (160-400) X10*3/uL BMP 03/02/22 04:19 Sodium 136 Potassium 3.9 Chloride 105 Carbon Dioxide 25 BUN 9 Creatinine 0.68 Calcium 9.2 Liver Function 03/02/22 Range/Units 04:19 Total Bilirubin 1.0 (0.0-1.0) mg/dL AST 22 D (5-31) U/L ALT 26 (0-31) U/L Alkaline Phosphatase 96 D (39-117) U/L Albumin 3.7 (3.5-5.0) g/dL CTA of brain and neck did not reveal any significant abnormality. MRI of brain without contrast similarly did not reveal any significant abnormality. EKG revealed normal sinus rhythm. Assessment and Plan (1) Migraine with aura: Status: Acute (2) Basilar migraine: Status: Acute (3) Migraine equivalent syndrome: Status: Acute 61 years old woman who were provided details of a classical migraine with aura localized to brainstem, or brainstem migraine. This type of syndrome or presentation is frequently confused with more serious vascular disease or stro ke. There is no evidence of acute or any prior vascular insult. My recommendation at this time are education, continuation of blood pressure control and baby aspirin daily. In addition, I recommend starting her on topiramate 25 mg twice a day for migraine control. She could follow up with a neurologist for further management. Procedures Date of Service Date of Service: 03/02/22
--- NOTE | 2022-03-02 14:30 | P.DS_ITS ---
DS: Providers Provider Date of Service: 03/02/22 Date of admission: 03/01/22 17:34 Date of discharge: 03/02/22 Primary care physician: An Aguilar MD Consults: 03/02/22 08:19 Consult to Neurology Routine Consulting Provider: [facility] Reason for consultation: TIA Has provider been notified: No DS: Diagnosis Discharge Diagnosis (1) Migraine with aura: Status: Acute (2) Basilar migraine: Status: Acute (3) Migraine equivalent syndrome: Status: Acute DS: Summary Hospital Course Hospital Course: 61year-old female presented to emergency room after experiencing right facial asymmetry as well as right-sided weakness. The symptoms resolved within an hour and workup including MRI was negative. She was started on Plavix and aspirin the evening of admission and neurology consult was obtained. Seen by Dr. Moore; diagnosis of complex migraine. Patient will be discharged on aspirin 81 mg and Topamax 25 mg p.o. b.i.d.. While admitted, sugars were poorly control as she states she does not do well with insulin. She is instructed to follow-up with her PCP for further options for treating her sugar. She will be discharged in stable condition and will follow-up with PCP who can determine neurological follow-up if necessary Time Spent with Patient Time attestation: Total time spent providing and/or coordinating discharge services: Discharge coordination time: Greater than 30 minutes Quality: Safe Use of Opioids Does Pt have an Active Cancer Diagnosis on the Problem List?: No Quality: Stroke Does the patient have a stroke diagnosis?: No Physical Exam Vital Signs: Vital Signs: Last Vital Signs Temp 97.2 F 03/02/22 10:58 Pulse 70 03/02/22 10:58 Resp 15 03/02/22 10:58 BP 115/67 03/02/22 10:58 Pulse Ox 96 03/02/22 10:58 O2 Del Method 03/02/22 10:58 BMI result Body Mass Index 27.6 Const: Other: awake, anxious no acute distress HEENT: Other: no facial asymmetry Neck: Other: no appreciable carotid bruits Resp: Other: clear to auscultation bilaterally no rales rhonchi or wheezes Cardio: Other: no S4; positive S1-S2; no S3 murmurs rubs or gallops. Regular rate and rhythm GI: Other: soft nontender nondistended with nor Neuro: Other: cranial nerves 2-12 were grossly intact as tested. Motor is 5/5 all e xtremities. Sensation is intact. Speech is fluent. Cognition appropriate. gait normal Extrem: Other: no edema bilaterally DS: Data Data Completed and Pending Labs on day of discharge: Laboratory Results - last 24 hr 03/01/22 03/01/22 03/01/22 14:03 14:03 14:03 WBC RBC Hgb Hct MCV MCH MCHC RDW Plt Count MPV Immature Gran % (Auto) Neut % (Auto) Lymph % (Auto) Bond % (Auto) Eos % (Auto) Baso % (Auto) Lymph # (Auto) Bond # (Auto) Eos # (Auto) Baso # (Auto) Abs Immat Gran (auto) Absolute Neuts (auto) Absolute Nucleated RBC Nucleated RBC % (auto) Sodium Potassium Chloride Carbon Dioxide Anion Gap BUN Creatinine Estim Creat Clear Calc Estimated GFR POC Glucose Fasting Glucose Calcium Total Bilirubin AST ALT Alkaline Phosphatase Troponin I High Sens < 3.5 B-Natriuretic Peptide < 10 Total Protein Albumin Triglycerides Cholesterol LDL Cholesterol, Calc HDL Cholesterol Influenza Type A (PCR) NEGATIVE Influenza Type B (PCR) NEGATIVE RSV RNA Qual (PCR) NEGATIVE SARS-CoV-2 RNA (RT-PCR) NEGATIVE 03/01/22 03/02/22 03/02/22 17:50 04:19 04:19 WBC 6.6 6.2 RBC 4.57 4.64 Hgb 13.3 13.8 Hct 39.4 40.5 MCV 86.2 87.3 MCH 29.1 29.7 MCHC 33.8 34.1 RDW 12.5 12.6 Plt Count 150 L 163 MPV 11.3 12.2 Immature Gran % (Auto) 0.2 Neut % (Auto) 38.2 L Lymph % (Auto) 51.7 H Bond % (Auto) 7.5 Eos % (Auto) 2.1 Baso % (Auto) 0.3 Lymph # (Auto) 3.2 Bond # (Auto) 0.5 Eos # (Auto) 0.1 Baso # (Auto) 0.0 Abs Immat Gran (auto) 0.01 Absolute Neuts (auto) 2.4 Absolute Nucleated RBC 0.000 0.000 Nucleated RBC % (auto) 0.0 0.0 Sodium 136 Potassium 3.9 Chloride 105 Carbon Dioxide 25 Anion Gap 10 L BUN 9 Creatinine 0.68 Estim Creat Clear Calc 70.5 Estimated GFR > 60 POC Glucose Fasting Glucose 216 H Calcium 9.2 Total Bilirubin 1.0 AST 22 D ALT 26 Alkaline Phosphatase 96 D Troponin I High Sens B-Natriuretic Peptide Total Protein 6.6 Albumin 3.7 Triglycerides Cholesterol LDL Cholesterol, Calc HDL Cholesterol Influenza Type A (PCR) Influenza Type B (PCR) RSV RNA Qual (PCR) SARS-CoV-2 RNA (RT-PCR) 03/02/22 03/02/22 03/02/22 04:19 07:15 12:02 WBC RBC Hgb Hct MCV MCH MCHC RDW Plt Count MPV Immature Gran % (Auto) Neut % (Auto) Lymph % (Auto) Bond % (Auto) Eos % (Auto) Baso % (Auto) Lymph # (Auto) Bond # (Auto) Eos # (Auto) Baso # (Auto) Abs Immat Gran (auto) Absolute Neuts (auto) Absolute Nucleated RBC Nucleated RBC % (auto) Sodium Potassium Chloride Carbon Dioxide Anion Gap BUN Creatinine Estim Creat Clear Calc Estimated GFR POC Glucose 230 H 287 H Fasting Glucose Calcium Total Bilirubin AST ALT Alkaline Phosphatase Troponin I High Sens B-Natriuretic Peptide Total Protein Albumin Triglycerides 551 Cholesterol 211 D LDL Cholesterol, Calc TNP HDL Cholesterol 33 D Influenza Type A (PCR) Influenza Type B (PCR) RSV RNA Qual (PCR) SARS-CoV-2 RNA (RT-PCR) Discharge Plan Discharge Patient Disposition: Home, Self-Care Discharge Diagnosis: complex migraine Referrals: An Gregory MD [Primary Care Provider] - 1 Week Discharge Medications: New lisinopril 5 mg Tablet 5 mg PO DAILY Qty: 30 2RF Protocol: Hold for SBP< HOLD for SBP < : 90 topiramate [Topamax] 25 mg tablet 25 mg PO BID Qty: 60 0RF Continued (DME) blood-glucose meter Kit See Rx Instructions .ROUTE .MEDSUPPLY Qty: 1 0RF Rx Instructions: As directed blood sugar diagnostic [FreeStyle Lite Strips] Strip 1 strip miscellaneous BID Qty: 200 1RF albuterol sulfate 90 mcg/actuation HFA aerosol inhaler 1 - 2 puff inhalation Q4-6H PRN (Reason: for dyspnea) Qty: 8.5 2RF (DME) Assure ID Pen Needle 30 gauge x 5/16 needle See Rx Instructions .ROUTE .MEDSUPPLY Qty: 100 6RF Rx Instructions: Use 1 pen needle once a day glipizide 10 mg tablet 10 mg PO DAILY 90 Days Qty: 90 2RF ibuprofen 600 mg tablet 600 mg PO TID PRN (Reason: pain) 90 Days Qty: 270 3RF Tradjenta 5 mg tablet 5 mg PO DAILY 30 Days Qty: 30 6RF metformin 1,000 mg tablet 1,000 mg PO BID Qty: 180 1RF ondansetron 4 mg tablet,disintegrating 4 mg PO Q8H PRN (Reason: nausea and vomiting) 7 Days Qty: 21 1RF cholecalciferol (vitamin D3) 25 mcg (1,000 unit) capsule 25 mcg PO DAILY 90 Days Qty: 90 1RF oxcarbazepine 150 mg tablet 1 tab PO BEDTIME melatonin 5 mg tablet 1 tab PO BEDTIME cyanocobalamin (vitamin B-12) 1,000 mcg Tablet 1,000 mcg PO DAILY aspirin 81 mg Tablet,Delayed Release (Dr/Ec) 81 mg PO Q48H vitamin B complex Tablet 1 tab PO DAILY alpha lipoic acid 600 mg Capsule 600 mg PO BIDAC carisoprodol 350 mg tablet 350 mg PO DAILY PRN (Reason: Muscle Spasm) erythromycin 5 mg/gram (0.5 %) ointment 0.5 inch ophthalmic-Right BID PRN (Reason: EYE INFECTION) diazepam 10 mg tablet 10 mg PO BID PRN (Reason: Muscle Spasm) (DME) pen needle, diabetic 31 gauge x 3/16 needle See Rx Instructions topical QID Qty: 50 Rx Instructions: As directed (DME) blood pressure monitor Kit See Rx Instructions .ROUTE .MEDSUPPLY Qty: 1 0RF Rx Instructions: As directed Discharge Orders: Discharge Order (Routine); Ordered 03/02/22 Ordered By: Errol Oconnor Diet: advance to usual diet Activity on Discharge: As tolerated Stand Alone Forms: Patient Portal Discharge page Care Plan Goals: start lisinopril 5 mg daily; and Topamax 25 mg twice daily Health Concerns: talk to your doctor about starting Trulicity for your blood sugar Plan of Treatment: follow-up with your PCP she can direct neurology follow-up if needed Assessment: see discharge summary
--- NOTE | 2022-03-02 14:58 | MHC.CM.PN ---
Patient has been medically cleared for dc to home today, self care.
== END 2022-03-02 14:51 | disposition home or self-care (01) | DRG 54 ==
LOC: HO.ED 16:11 → HO.EDOVER 17:38
PROVIDERS: Admitting Provider Hospitalist; Emergency Provider Emergency Medicine; PCP Internal Medicine; Visit Provider Hospitalist
DX: G43.109 Migraine with aura, not intractable, without status migrainosus (principal); G81.91 Hemiplegia, unspecified affecting right dominant side; E11.65 Type 2 diabetes mellitus with hyperglycemia; R29.810 Facial weakness; I10 Essential (primary) hypertension; E78.2 Mixed hyperlipidemia; Z20.822 Contact with and (suspected) exposure to COVID-19; Z87.891 Personal history of nicotine dependence; Z88.5 Allergy status to narcotic agent; Z88.8 Allergy status to other drugs, medicaments and biological substances; Z79.82 Long term (current) use of aspirin; Z79.84 Long term (current) use of oral hypoglycemic drugs; Z79.899 Other long term (current) drug therapy
CPT/HCPCS: 0241U; 36415; 70496; 70498; 70551; 71045; 80048; 80053; 80061; 82947; 83880; 84484; 85025; 85027; 93005; 94660; 96360; 99219; 99285; J1650; Q9967

== ENCOUNTER 2022-05-14 00:01 | Emergency (ER) | payer OTHER, SELFPAY ==
[2022-05-14 00:08] VITALS: BP 139/75; PULSE 87; RESP 18; TEMP 36.1; O2SAT 98; BMI 28.3
[2022-05-14 00:36] LABS: Strep A Nucleic Acid Negative (Negative)
[2022-05-14 00:48] LABS: COVID-19 Test Negative (Negative); IDNOW Serial# 55D5AD1C
== END 2022-05-14 06:03 | disposition left against medical advice (07) ==
PROVIDERS: Emergency Provider Emergency Medicine; PCP Internal Medicine
DX: J02.9 Acute pharyngitis, unspecified (principal); Z20.822 Contact with and (suspected) exposure to COVID-19
CPT/HCPCS: 36415; 87635; 87651; 99281; 99283

== ENCOUNTER 2022-05-14 00:02 | Emergency (ER) | payer OTHER, SELFPAY ==
[2022-05-14 07:19] VITALS: BP 152/97; PULSE 81; RESP 18; TEMP 37.1; O2SAT 97; BMI 28.3
--- NOTE | 2022-05-14 07:54 | ED.GENADULT ---
HPI - General Adult General Chief complaint: General Medical Stated complaint: puss? in throat, infection in mouth, can't swallow Time Seen by Provider: 05/14/22 07:54 Source: patient Mode of arrival: ambulatory Limitations: no limitations History of Present Illness HPI narrative: 61 year old female who presents to the emergency Department for evaluation of throat pain for 2? days. The pain started gradually. The pain is located on both sides of her throat with the right side being more painful than the left. The pain is constant, sharp and is 10 out of 10 at its worse. The pain is worse with swallowing. She has no trouble swallowing liquids or solids. She had a subjective fever and chills. She denied rhinorrhea, sore throat, cough, chest pain, shortness of breath, nausea, vomiting or diarrhea. She looked at the? back of her throat and she saw pus and she taste pus whenever she swallows She took ibuprofen with some relief of her pain. MD complaint: sore throat Onset (ago): day(s) (2) Location: mouth (throat) Severity: severe Severity scale (1-10): 10 Quality: sharp Pain Consistency: constant Relieving factors: none Exacerbating factors: eating (swallowing) Associated symptoms: fever/chills Treatments prior to arrival: NSAID Related Data Home Medications Medication Instructions Recorded Confirmed diazepam 10 mg tablet 10 mg PO BID PRN Muscle Spasm 09/03/20 03/12/22 pen needle, diabetic 31 gauge x #50 ea 09/03/20 03/12/22/16 alpha lipoic acid 600 mg capsule 600 mg PO BIDAC 03/01/22 03/12/22 aspirin 81 mg tablet,delayed 81 mg PO Q48H 03/01/22 03/12/22 release carisoprodol 350 mg tablet 350 mg PO DAILY PRN Muscle Spasm 03/01/22 03/12/22 cyanocobalamin (vitamin B-12) 1,000 mcg PO DAILY 03/01/22 03/12/22 1,000 mcg tablet erythromycin 5 mg/gram (0.5 %) eye 0.5 inch ophthalmic-Right BID PRN 03/01/22 03/12/22 ointment EYE INFECTION melatonin 5 mg tablet 1 tab PO BEDTIME 03/01/22 03/12/22 oxcarbazepine 150 mg tablet 1 tab PO BEDTIME 03/01/22 03/12/22 vitamin B complex 1 tab PO DAILY 03/01/22 03/12/22 Previous Rx's Medication Instructions Recorded blood-glucose meter #1 ea 07/31/20 blood sugar diagnostic (FreeStyle 1 strip miscellaneous BID for 08/09/20 Lite Strips) diabetes mellitus #200 strips blood pressure monitor #1 ea 09/03/20 albuterol sulfate 90 mcg/actuation 1 - 2 puff inhalation Q4-6H PRN 09/08/20 aerosol inhaler for dyspnea #8.5 grams glipizide 10 mg tablet 10 mg PO DAILY 90 days #90 tabs 03/17/21 ibuprofen 600 mg tablet 600 mg PO TID PRN pain 90 days 07/24/21 #270 tabs ondansetron 4 mg disintegrating 4 mg PO Q8H PRN nausea and 10/20/21 tablet vomiting 7 days #21 tabs cholecalciferol (vitamin D3) 25 25 mcg PO DAILY 90 days #90 caps 11/15/21 mcg (1,000 unit) capsule insulin lispro 200 unit/mL (3 mL) 20 unit (0.1 mL) subcut DAILY 60 03/25/22 subcutaneous pen (Humalog KwikPen days #6 mL U-200 Insulin) pen needle, diabetic, safety 30 #100 ea 03/25/22 gauge x 5/16 (Assure ID Pen Needle) fenofibrate 54 mg tablet 54 mg PO DAILY 90 days #90 tabs 04/17/22 metformin 1,000 mg tablet 1,000 mg PO BID #180 tabs 04/23/22 valacyclovir 500 mg tablet 500 mg PO DAILY 90 days #90 tabs 04/23/22 dulaglutide 0.75 mg/0.5 mL 0.75 mg (0.5 mL) subcut QWEEK 90 05/04/22 subcutaneous pen injector days #6.5 mL (Trulicity) linagliptin 5 mg tablet (Tradjenta) 5 mg PO DAILY 30 days #30 tabs 05/07/22 topiramate 25 mg tablet (Topamax) 25 mg PO BID #60 tabs 05/11/22 penicillin V potassium 500 mg 500 mg PO TID 10 days #30 tabs 05/14/22 tablet Allergies Allergy/AdvReac Type Severity Reaction Status Date / Time nickel Allergy Severe Rash Verified 03/12/22 15:16 acetaminophen [Percocet] Allergy Intermediate vomiting Verified 03/12/22 15:16 cyclobenzaprine Allergy Intermediate HEADACHE,DI Verified 03/12/22 15:16 [CYCLOBENZAPRINE] ZZINESS divalproex sodium [Depakote] Allergy Intermediate increase Verified 03/12/22 15:16 liver enzymes methocarbamol [METHOCARBAMOL] Allergy Intermediate TICS Verified 03/12/22 15:16 oxycodone [From PERCOCET] Allergy Intermediate VOMITING Verified 03/12/22 15:16 liraglutide [From Victoza] AdvReac Severe hypoglycemi Verified 03/12/22 15:16 a lisinopril AdvReac Severe Dizziness Verified 03/12/22 15:16 risperidone [RISPERIDONE] AdvReac Severe CHEST PAIN Verified 03/12/22 15:16 canagliflozin [Invokana] AdvReac Intermediate confusion Verified 03/12/22 15:16 dulaglutide [Trulicity] AdvReac Intermediate abdominal Verified 03/12/22 15:16 bloating, numbness, myalgia Narcotics Allergy Mild dizzy, sick Uncoded 03/12/22 15:16 Review of Systems Review of Systems: Yes all other systems are reviewed and are negative [facility] Past Medical History [facility] Narrative: Social history : She denies tobacco, alcohol and drug use. Medical History Basilar migraine Chest pain Chronic neck pain Fibromyalgia Herpes simplex virus (HSV) infection Hypertension Intertrigo Migraine with aura Mixed hyperlipidemia Nickel allergy Nickel dermatitis Polyarthralgia Renal calculi Shortness of breath Surgical History History of section History of colonoscopy History of discectomy History of laparoscopic cholecystectomy History of laparoscopy History of prior ablation treatment History of tubal ligation Family History Family History Father Prostate cancer Diabetes High cholesterol HTN (hypertension) Mother Liver problem Diabetes High cholesterol HTN (hypertension) Family/Other Diabetes High cholesterol HTN (hypertension) Cancer Social History Social History Household Members: Children Housing: Apartment Alcohol intake: never Patient Tobacco Use Status: Former Tobacco user Tobacco use type: Cigarette Years Smoked: 18 e-Cigarette/Vaping Use: Never Used Second Hand Smoke Exposure: No Advance Directives: No Advance Directives Information Provided: Yes service: No Current occupational status: disabled Sexual orientation: Straight/Heterosexual Gender identity: Female Cognitive needs: No Hearing needs: No Vision needs: No Physical Exam ED Vital Signs: Vital Signs - 24 hr 05/14/22 07:19 Temperature 98.7 F Pulse Rate 81 Respiratory Rate 18 Blood Pressure 152/97 H Pulse Oximetry 97 Oxygen Delivery Method Room Air BMI result Body Mass Index 28.3 Const General: cooperative and no acute distress Orientation/consciousness: oriented to person and oriented to place Limitations: no limitations HENMT Head: Yes normal to inspection, Yes normocephalic and Yes atraumatic Ears: external ears normal General nose exam: Normal external nose present Face and sinus: Yes normal facial exam Mouth: Normal oral and palatal mucosa present Throat: Yes uvula midline, Yes abnormal tonsil (symmetric enlargement with erythema and exudates) and Yes other (no trismus) Eyes General: appearance normal, both eyes and all related structures Pupils: Equal, round and reactive pupils present Neck Neck: Yes normal visual inspection, Yes no lymphadenopathy, Yes trachea midline and Yes supple Chest Chest palpation & inspection: normal inspection of the chest and normal palpation of entire chest wall Resp Effort & Inspection: normal respiratory effort and able to speak in complete sentences Auscultation: clear to auscultation bilaterally Cardio Rate: regular rate Rhythm: regular rhythm Heart sounds: S1 normal heart sound present, S2 normal heart sound present and no murmurs GI Inspection: Yes normal to inspection Palpation (GI): Soft to palpation, nontender and no guarding Auscultation: normal bowel sounds General: Yes no CVA tenderness Back/Spine/Pelvis Back: no CVA tenderness Skin General skin exam: no rashes or lesions noted Neuro General: oriented to person and oriented to place Cranial nerves: Yes CN's II-XII intact bilaterally and Yes Equal, round and reactive pupils present Cognition (Neuro): normal cognition Motor exam (neuro): 5/5 motor strength present throughout Extrem General: Yes normal to inspection Psych Appearance: grossly normal Speech and movement: Normal speech and movement present Affect: normal affect Attitude: cooperative Thought process: Normal thought process present Thought content: Normal thought content present Course Course Course Narrative: 61 year old female who presented to the emergency department for evaluation of sore throat x2 days with subjective fever chills and ?pus? noted in the back of her throat. Her vital signs were stable. Her throat exam did reveal bilaterally enlarged tonsils with erythema exudates. The patient's rapid strep test was negative. Her presentation is consistent with tonsillitis. She was prescribed penicillin 500mg three times a day for 10 days.She was advised to take Tylenol and ibuprofen. She was given printed and verbal instructions and discharge to home. Discharge Plan Discharge Clinical Impression: Acute tonsillitis Qualifiers: Pharyngitis/tonsillitis etiology: unspecified etiology Qualified Code(s): J03.90 - Acute tonsillitis, unspecified Patient Disposition: Home, Self-Care Instructions: Tonsillitis (ED) Additional Instructions: Your rapid strep was negative. Your examination is consistent with inflammation and infection of your tonsils (tonsillitis). Take penicillin 500 mg pills, 1 pill 3 times a day for 10 days. Finish the entire antibiotic prescription. Take ibuprofen 200 mg pills, 3 pills every 6 hours as needed for pain or fever. Take Tylenol (acetaminophen) 500 mg pills, 2 pills every 4 to 6 hours as needed for pain or fever. Prescriptions: New penicillin V potassium 500 mg tablet 500 mg PO TID 10 Days Qty: 30 0RF No Action (DME) blood-glucose meter Kit See Rx Instructions .ROUTE .MEDSUPPLY Qty: 1 0RF Rx Instructions: As directed blood sugar diagnostic [FreeStyle Lite Strips] Strip 1 strip miscellaneous BID Qty: 200 1RF albuterol sulfate 90 mcg/actuation HFA aerosol inhaler 1 - 2 puff inhalation Q4-6H PRN (Reason: for dyspnea) Qty: 8.5 2RF glipizide 10 mg tablet 10 mg PO DAILY 90 Days Qty: 90 2RF ibuprofen 600 mg tablet 600 mg PO TID PRN (Reason: pain) 90 Days Qty: 270 3RF ondansetron 4 mg tablet,disintegrating 4 mg PO Q8H PRN (Reason: nausea and vomiting) 7 Days Qty: 21 1RF cholecalciferol (vitamin D3) 25 mcg (1,000 unit) capsule 25 mcg PO DAILY 90 Days Qty: 90 1RF Humalog KwikPen Insulin 200 unit/mL (3 mL) insulin pen 20 unit subcut DAILY 60 Days Qty: 6 3RF (DME) Assure ID Pen Needle 30 gauge x 5/16 needle See Rx Instructions .ROUTE .MEDSUPPLY Qty: 100 6RF Rx Instructions: Use 1 pen needle once a day fenofibrate 54 mg tablet 54 mg PO DAILY 90 Days Qty: 90 1RF metformin 1,000 mg tablet 1,000 mg PO BID Qty: 180 1RF valacyclovir 500 mg tablet 500 mg PO DAILY 90 Days Qty: 90 1RF Trulicity 0.75 mg/0.5 mL pen injector 0.75 mg subcut QWEEK 90 Days Qty: 6.5 1RF Tradjenta 5 mg tablet 5 mg PO DAILY 30 Days Qty: 30 0RF topiramate [Topamax] 25 mg tablet 25 mg PO BID Qty: 60 0RF oxcarbazepine 150 mg tablet 1 tab PO BEDTIME melatonin 5 mg tablet 1 tab PO BEDTIME cyanocobalamin (vitamin B-12) 1,000 mcg Tablet 1,000 mcg PO DAILY aspirin 81 mg Tablet,Delayed Release (Dr/Ec) 81 mg PO Q48H vitamin B complex Tablet 1 tab PO DAILY alpha lipoic acid 600 mg Capsule 600 mg PO BIDAC carisoprodol 350 mg tablet 350 mg PO DAILY PRN (Reason: Muscle Spasm) erythromycin 5 mg/gram (0.5 %) ointment 0.5 inch ophthalmic-Right BID PRN (Reason: EYE INFECTION) diazepam 10 mg tablet 10 mg PO BID PRN (Reason: Muscle Spasm) (DME) pen needle, diabetic 31 gauge x 3/16 needle See Rx Instructions topical QID Qty: 50 Rx Instructions: As directed (DME) blood pressure monitor Kit See Rx Instructions .ROUTE .MEDSUPPLY Qty: 1 0RF Rx Instructions: As directed Interventions: ED Discharge Assessment Last Done: 05/14/22 08:56 Discharge Date/Time: 05/14/22 08:57
== END 2022-05-14 08:57 | disposition home or self-care (01) ==
PROVIDERS: Emergency Provider Emergency Medicine Emergency Medical Services; PCP Internal Medicine
DX: J03.90 Acute tonsillitis, unspecified (principal); I10 Essential (primary) hypertension; E78.2 Mixed hyperlipidemia; Z87.891 Personal history of nicotine dependence
CPT/HCPCS: 99282; 99283

== ENCOUNTER 2022-07-14 09:13 | Outpatient (REF) | payer OTHER, SELFPAY ==
[2022-07-14 10:18] LABS: Alanine Aminotransferase 32 U/L (0-31); Albumin Level 4.1 g/dL (3.5-5.0); Alkaline Phosphatase 120 U/L (39-117); Anion Gap 14 (12-20); Aspartate Amino Transferase 28 U/L (5-31); Blood Urea Nitrogen 9 mg/dL (9-16); Calcium 9.2 mg/dL (8.4-10.2); Carbon Dioxide 25 mmol/L (22-29); Chloride 103 mmol/L (96-108); Cholesterol 212 mg/dL; Estimated Glomerular Filt Rate > 60; Glucose Fasting 317 mg/dL (60-99); HDL Cholesterol 42 mg/dL; LDL Cholesterol Calculated 111 mg/dl; Potassium 4.2 mmol/L (3.3-5.1); Sodium 138 mmol/L (135-145); Total Protein 7.2 g/dL (6.5-8.0); Triglycerides 295 mg/dL
[2022-07-14 11:09] LABS: Creatinine Urine 103.94 mg/dL; Microalbum/Creatinine Ratio Ur 18.2 ug/mg cr
== END 2022-07-14 09:14 | disposition home or self-care (01) ==
LOC: HO.LAB 09:13
PROVIDERS: PCP Internal Medicine; Visit Provider Internal Medicine
DX: E78.2 Mixed hyperlipidemia (principal); E11.65 Type 2 diabetes mellitus with hyperglycemia; E55.9 Vitamin D deficiency, unspecified; R10.2 Pelvic and perineal pain; N76.0 Acute vaginitis; Z79.4 Long term (current) use of insulin
CPT/HCPCS: 36415; 80053; 80061; 81003; 82043; 82306

== ENCOUNTER 2022-07-14 10:48 | Outpatient (REF) | payer OTHER, SELFPAY ==
[2022-07-14 15:39] LABS: CT PCR NOT DETECTED (Not Detect.); NG PCR NOT DETECTED (Not Detect.)
[2022-07-15 09:14] LABS: BV Int Neg Control Negative (Negative); BV Int Pos Control Positive (Positive)
[2022-07-17 03:36] LABS: HPV mRNA E6/E7 rflx Not Detected (Not Detected)
== END 2022-07-14 10:49 | disposition home or self-care (01) ==
LOC: HO.LNP 10:48
PROVIDERS: Visit Provider Advanced Practice Midwife
DX: Z01.419 Encounter for gynecological examination (general) (routine) without abnormal findings (principal); Z11.51 Encounter for screening for human papillomavirus (HPV); R10.2 Pelvic and perineal pain; N76.0 Acute vaginitis
CPT/HCPCS: 87480; 87491; 87510; 87591; 87624; 87660; 88142

== ENCOUNTER 2022-08-19 08:09 | Outpatient (REF) | payer OTHER, SELFPAY ==
--- NOTE | ~2022-08-19 | US_ITS ---
EXAMINATION: US ABDOMEN COMPLETE CLINICAL INFORMATION: Left lower quadrant pain. COMPARISON: X-ray abdomen KUB 11/11/2021. Ultrasound abdomen 11/26/2020 and 09/10/2014. CT abdomen and pelvis 08/01/2016. Limited abdominal ultrasound 12/03/2014. TECHNIQUE: Real-time imaging of the abdominal viscera. FINDINGS: PANCREAS: Normal. ABDOMINAL AORTA: The proximal, mid, and distal segments are normal in caliber. INFERIOR VENA CAVA: Visualized portions are normal. LIVER: Enlarged echogenic liver. No focal hepatic lesion. There is no intrahepatic biliary duct dilatation seen. GALLBLADDER: Surgically absent. COMMON BILE DUCT: Normal in caliber measuring 0.5 cm in diameter. RIGHT KIDNEY: Normal. No hydronephrosis. No renal calculi or focal parenchymal lesions. The kidney measures 11.6 cm in maximum dimension. LEFT KIDNEY: 2 adjacent cysts in the midpole, each measuring 1 x 1.3 cm. No hydronephrosis or renal calculi. The kidney measures 11.8 cm in maximum dimension. SPLEEN: Normal. The spleen measures 10.9 cm in maximum dimension. FREE FLUID: None. US/US abdomen complete IMPRESSION: Enlarged echogenic liver probably representing fatty infiltration. Left renal cysts.
== END 2022-08-19 08:10 | disposition home or self-care (01) ==
LOC: HO.US 08:09
PROVIDERS: Visit Provider Internal Medicine
DX: R10.32 Left lower quadrant pain (principal)
CPT/HCPCS: 76700

== ENCOUNTER 2022-08-21 10:21 | Outpatient (REF) | payer OTHER, SELFPAY ==
--- NOTE | ~2022-08-21 | US_ITS ---
EXAMINATION: US PELVIS CLINICAL INFORMATION: Postmenopausal pelvic and perineal pain. COMPARISON: Pelvic ultrasound dated 08/07/2016. TECHNIQUE: Ultrasound of the pelvis is performed using both transabdominal and transvaginal transducers along with Doppler. Transvaginal imaging is performed due to inadequate visualization transabdominally. FINDINGS: Uterus: The uterus is anteverted and measures 8.6 x 2.6 x 4.1 cm. The double wall endometrial thickness is 0.3 mm. The uterus is smooth in contour and has heterogeneous myometrial echogenicity. A 7 x 5 x 4 mm coarsely calcified fibroid is noted within the fundus. Adnexa: The right ovary is nonvisualized. The left ovary measures 2.0 x 1.5 x 1.8 cm (volume 2.9 mL). No left ovarian mass or torsion is noted. There is no pelvic ascites or fluid collection. There is prominent left adnexal vasculature. US/US pelvic and transvaginal IMPRESSION: 1. A small calcified uterine fundal fibroid is noted, as detailed. 2. The right ovary is nonvisualized. 3. There is prominent left adnexal vasculature, which can be associated with pelvic congestion.
--- NOTE | ~2022-08-21 | MM_ITS ---
EXAMINATION: MM SCREENING DIGITAL BREAST TOMOSYNTHESIS, BILATERAL CLINICAL INFORMATION: Screening. Asymptomatic. The lifetime risk of breast cancer based on the Tyrer-Cuzick Model is 5%. COMPARISON: Mammography: 01/03/2019, 03/25/2015; bilateral targeted breast ultrasound 01/03/2019 TECHNIQUE: Digital breast tomosynthesis is performed in both the craniocaudal and mediolateral oblique views along with computer-aided detection (CAD). Synthesized 2D images are generated from the tomosynthesis. FINDINGS: There are scattered areas of fibroglandular density (ACR BI-RADS breast composition Category b). Right breast shows no interval mass or architectural abnormality. There is incidental small intramammary node again seen mid upper outer quadrant. There are bilateral scattered benign round and vascular calcifications. The axilla and skin contours are unremarkable. Left breast has 2 smooth nodules, likely cysts: larger 0.9 x 0.6 cm posterior central breast; and, smaller 0.6 x 0.5 cm mid 9:00 position, respectively. MM/MM tomosynthesis screening BI IMPRESSION: Left: -2 smooth nodules likely cysts, larger 9 x 6 mm. Right: -No mammographic evidence of malignancy. ASSESSMENT: BI-RADS 0: Incomplete - Need Additional Imaging Evaluation RECOMMENDATION: 1. Targeted ultrasound left breast. 2. Radiology department staff will contact the patient for additional imaging. This patient's information was entered into a reminder system with a target due date for their next mammogram.
== END 2022-08-21 10:22 | disposition home or self-care (01) ==
LOC: HO.US 10:21
PROVIDERS: Visit Provider Advanced Practice Midwife
DX: Z12.31 Encounter for screening mammogram for malignant neoplasm of breast (principal); R10.2 Pelvic and perineal pain
CPT/HCPCS: 76830; 76856; 77063; 77067

== ENCOUNTER 2022-08-28 13:11 | Outpatient (REF) | payer OTHER, SELFPAY ==
--- NOTE | ~2022-08-28 | US_ITS ---
EXAMINATION: US DIAGNOSTIC ULTRASOUND BREAST, LEFT CLINICAL INFORMATION: 2 circumscribed densities. COMPARISON: Mammography of 09/10/2022 and studies dating back to 01/03/2019. TECHNIQUE: Ultrasound of the breast is performed with real-time jarquin scale imaging and color Doppler. FINDINGS: Only one nearly anechoic circumscribed structure is seen at the 9 o'clock position 6 cm from nipple with increased through sound transmission and no internal vascularity. No second ultrasound abnormality was identified. Recommend 6 month followup left breast mammogram only for continued surveillance of both lesions. Results are discussed with the patient at time of visit. US/US breast LT limited IMPRESSION: 1 of 2 densities seen on mammography, which are both well circumscribed, appears to represent a minimally complex cyst with the deeper structure not being identified on ultrasound. With their benign appearance, recommend a 6 month followup left breast mammogram only. ASSESSMENT: BI-RADS 3: Probably Benign RECOMMENDATION: Diagnostic mammography in 6 months. This patient's information was entered into a reminder system with a target due date for their next mammogram.
== END 2022-08-28 13:12 | disposition home or self-care (01) ==
LOC: HO.MAMMO 13:11
PROVIDERS: PCP Internal Medicine; Visit Provider Advanced Practice Midwife
DX: N63.25 Unspecified lump in the left breast, overlapping quadrants (principal)
CPT/HCPCS: 76642

== ENCOUNTER 2022-12-03 10:28 | Outpatient (REF) | payer OTHER, SELFPAY | END 2022-12-03 10:29 | disposition home or self-care (01) | LOC: HO.LAB 10:28 | PROVIDERS: PCP Internal Medicine; Visit Provider Advanced Practice Midwife | DX: N76.0 Acute vaginitis (principal); Z20.2 Contact with and (suspected) exposure to infections with a predominantly sexual mode of transmission; Z71.2 Person consulting for explanation of examination or test findings | CPT/HCPCS: 99212 ==

== ENCOUNTER 2022-12-03 11:19 | Outpatient (REF) | payer OTHER, SELFPAY ==
[2022-12-03 13:10] LABS: Alanine Aminotransferase 51 U/L (0-31); Albumin Level 4.2 g/dL (3.5-5.0); Alkaline Phosphatase 164 U/L (39-117); Anion Gap 14 (12-20); Aspartate Amino Transferase 59 U/L (5-31); Bilirubin Total 0.9 mg/dL (0.0-1.0); Blood Urea Nitrogen 10 mg/dL (9-16); Calcium 9.1 mg/dL (8.4-10.2); Carbon Dioxide 26 mmol/L (22-29); Chloride 102 mmol/L (96-108); Cholesterol 217 mg/dL; Estimated Glomerular Filt Rate > 60; Potassium 4.5 mmol/L (3.3-5.1); Sodium 137 mmol/L (135-145)
[2022-12-03 13:11] LABS: HDL Cholesterol 39 mg/dL; LDL Cholesterol Calculated 122 mg/dl; Total Protein 7.4 g/dL (6.5-8.0); Triglycerides 283 mg/dL
[2022-12-03 13:13] LABS: Glucose Fasting 356 mg/dL (60-99)
[2022-12-03 13:16] LABS: Folate 18.5 ng/mL (> or = 4.0); Vitamin B12 869 pg/mL (200-900); Vitamin D 25-OH Total 24.2 ng/mL (>30)
[2022-12-04 11:14] LABS: BV Int Neg Control Negative (Negative); BV Int Pos Control Positive (Positive)
== END 2022-12-03 11:20 | disposition home or self-care (01) ==
LOC: HO.LAB 11:19
PROVIDERS: Advanced Practice Midwife; PCP Internal Medicine; Visit Provider Internal Medicine
DX: E11.65 Type 2 diabetes mellitus with hyperglycemia (principal); E53.8 Deficiency of other specified B group vitamins; E78.5 Hyperlipidemia, unspecified; E55.9 Vitamin D deficiency, unspecified; N76.0 Acute vaginitis; Z79.4 Long term (current) use of insulin
CPT/HCPCS: 36415; 80053; 80061; 82306; 82607; 82746; 87480; 87510; 87660

== ENCOUNTER 2023-03-04 11:14 | Outpatient (REF) | payer OTHER, SELFPAY ==
--- NOTE | ~2023-03-04 | MM_ITS ---
EXAMINATION: MM DIAGNOSTIC DIGITAL BREAST TOMOSYNTHESIS, LEFT CLINICAL INFORMATION: Short interval six-month follow-up probable benign nodularity central left breast and mid 9:00 left breast. The lifetime risk of breast cancer based on the Tyrer-Cuzick Model is 5%. COMPARISON: Mammography: 08/21/2022 (BI-RADS 0), 01/03/2019; left breast targeted ultrasound 08/28/2022. TECHNIQUE: Digital breast tomosynthesis is performed in both the craniocaudal and mediolateral oblique views along with computer-aided detection (CAD). Synthesized 2D images are generated from the tomosynthesis. FINDINGS: There are scattered areas of fibroglandular density (ACR BI-RADS breast composition Category b). The nodularity mid 9:00 left breast is stable from prior exam. The targeted ultrasound suggested a benign cyst at this location. The other nodule posterior central left breast is moderately decreased in size. They will be reassessed again at time of annual bilateral mammography, due in 6 months. Remainder of the left breast shows no developing density or significant mass or architectural abnormality. No abnormal calcifications. The axilla and skin contours are unremarkable. Results are provided to the patient at time of visit by the technologist. MM/MM tomosynthesis diagnostic LT IMPRESSION: -Nodule posterior central left breast moderately decreased in size. -Nodule mid 9:00 stable, prior ultrasound suggested a cyst. -No mammographic evidence of malignancy. ASSESSMENT: BI-RADS 3: Probably Benign RECOMMENDATION: Routine annual mammography screening. This patient's information was entered into a reminder system with a target due date for their next mammogram.
[2023-03-04 13:48] LABS: MANUAL DIFF FLAG NO
[2023-03-04 14:17] LABS: Basophils Percent Auto 0.6 % (0-2); Eosinophils Absolute Auto 0.1 X10*3/uL (0.0-0.4); Eosinophils Percent Auto 1.4 % (0-4); Hemoglobin 14.9 g/dl (12.0-16.0); Imm Gran Abs Auto 0.01 X10*3/uL (0.00-0.03); Imm Gran Pct Auto 0.2 % (0.0-0.4); Lymphocytes Absolute Auto 2.6 X10*3/uL (1.2-4.9); Lymphocytes Percent Auto 41.8 % (20-40); Mean Corpuscular HGB Conc 33.9 g/dl (31.0-35.0); Mean Corpuscular Hemoglobin 29.5 pg (27.0-33.0); Mean Corpuscular Volume 87.1 fL (80.0-98.0); Mean Platelet Volume 12.1 fL (9.4-12.3); Monocytes Absolute Auto 0.4 X10*3/uL (0.1-1.2); Neutrophils Absolute Auto 3.1 x10*3/uL (2.0-8.3); Platelet Count 163 X10*3/uL (160-400); Red Blood Count 5.05 X10*6/uL (4.20-5.50); Red Cell Distribution Width 12.5 % (11.0-16.0); White Blood Count 6.3 X10*3/uL (4.8-10.8)
[2023-03-04 15:00] LABS: Creatinine Urine 44.25 mg/dL; Microalbum/Creatinine Ratio Ur 47.4 ug/mg cr
[2023-03-04 15:02] LABS: Alanine Aminotransferase 39 U/L (0-31); Albumin Level 4.3 g/dL (3.5-5.0); Alkaline Phosphatase 190 U/L (39-117); Anion Gap 15 (12-20); Aspartate Amino Transferase 42 U/L (5-31); Blood Urea Nitrogen 5 mg/dL (9-16); Calcium 9.3 mg/dL (8.4-10.2); Carbon Dioxide 24 mmol/L (22-29); Chloride 101 mmol/L (96-108); Cholesterol 238 mg/dL; Estimated Glomerular Filt Rate > 60; Glucose Fasting 325 mg/dL (60-99); HDL Cholesterol 40 mg/dL; Iron 87 mcg/dL (30-160); Percent Iron Saturation 27 % (15-50); Potassium 4.1 mmol/L (3.3-5.1); Sodium 136 mmol/L (135-145); Total Iron Binding Capacity 323 mcg/dL (228-428); Total Protein 7.9 g/dL (6.5-8.0); Triglycerides 401 mg/dL; Unsaturated Iron Binding 236 ug/dL
[2023-03-04 15:09] LABS: Vitamin D 25-OH Total 30.1 ng/mL (>30)
[2023-03-04 15:26] LABS: Folate 16.1 ng/mL (> or = 4.0); Vitamin B12 932 pg/mL (200-900)
== END 2023-03-04 11:15 | disposition home or self-care (01) ==
LOC: HO.MAMMO 11:14
PROVIDERS: Absent Provider Internal Medicine; PCP Internal Medicine; Visit Provider Advanced Practice Midwife
DX: N63.25 Unspecified lump in the left breast, overlapping quadrants (principal); E11.9 Type 2 diabetes mellitus without complications; E53.8 Deficiency of other specified B group vitamins; D64.9 Anemia, unspecified; E78.5 Hyperlipidemia, unspecified; E55.9 Vitamin D deficiency, unspecified; I10 Essential (primary) hypertension
CPT/HCPCS: 36415; 77061; 77065; 80053; 80061; 82043; 82306; 82607; 82746; 83540; 85025

== ENCOUNTER 2023-04-03 10:30 | Emergency (ER) | payer OTHER, SELFPAY ==
[2023-04-03 10:36] VITALS: BP 143/83; PULSE 75; RESP 16; TEMP 35.9; O2SAT 99; BMI 28.2
--- NOTE | 2023-04-03 11:19 | PC.NURSE ---
visual acuity performed. pt wears glasses for reading only.
--- NOTE | 2023-04-03 12:03 | ED_ITS ---
HPI - Eye Problem General Chief complaint: Eye Problems Stated complaint: swollen eye Time Seen by Provider: 04/03/23 11:16 Source: patient Mode of arrival: ambulatory Limitations: no limitations History of Present Illness HPI Narrative: Patient is a 62-year-old female presents to the emergency department for evaluation of pain and swelling to the left upper eyelid for the past 2 days. She has had a similar problem in the past. She states that she typically requires oral antibiotics for this to improve. She has an eye surgeon that she see's in [place]. She endorses blurred vision to the left eye. Denies pain with movement of the eye. denies foreign body sensation. denies wearing contact lenses. denies any trauma. Denies fevers, chills, headache, dizziness, lightheadedness, chest pain, shortness of breath. Related Data Home Medications Medication Instructions Recorded Confirmed diazepam 10 mg tablet 10 mg PO BID PRN Muscle Spasm 09/03/20 03/04/23 pen needle, diabetic 31 gauge x #50 ea 09/03/20 03/04/2312/03 alpha lipoic acid 600 mg capsule 600 mg PO BIDAC 03/01/22 03/04/23 aspirin 81 mg tablet,delayed 81 mg PO Q48H 03/01/22 03/04/23 release cyanocobalamin (vitamin B-12) 1,000 mcg PO DAILY 03/01/22 03/04/23 1,000 mcg tablet oxcarbazepine 150 mg tablet 1 tab PO BEDTIME 03/01/22 03/04/23 vitamin B complex 1 tab PO DAILY 03/01/22 03/04/23 linagliptin 5 mg tablet (Tradjenta) 5 mg PO DAILY 03/04/23 03/04/23 Previous Rx's Medication Instructions Recorded blood-glucose meter #1 ea 07/31/20 blood sugar diagnostic (FreeStyle 1 strip miscellaneous BID for 08/09/20 Lite Strips) diabetes mellitus #200 strips pen needle, diabetic, safety 30 #100 ea 03/25/22 gauge x / (Assure ID Pen Needle) pen needle, diabetic 31 gauge x #100 ea 07/07/2202/02 (Advocate Pen Needle) cholecalciferol (vitamin D3) 25 25 mcg PO DAILY 90 days #90 caps 07/14/22 mcg (1,000 unit) capsule ibuprofen 600 mg tablet 600 mg PO TID PRN pain 90 days 07/30/22 #270 tabs bacitracin 500 unit/gram topical 1 appl topical Q8H 2 weeks #28 10/01/22 ointment grams metformin 1,000 mg tablet 1,000 mg PO BID #180 tabs 10/23/22 clotrimazole-betamethasone 1 1 appl topical BID PRN itching 7 12/03/22 %-0.05 % topical cream days #45 grams fenofibrate 54 mg tablet 54 mg PO DAILY 90 days #90 tabs 12/03/22 fluconazole 150 mg tablet 150 mg PO ONCE PRN personal 1 day 12/03/22 (Diflucan) #1 tab carisoprodol 350 mg tablet 350 mg PO DAILY PRN Muscle Spasm 03/04/23 30 days #30 tabs insulin lispro 200 unit/mL (3 mL) 18 unit (0.09 mL) subcut BID 90 03/04/23 subcutaneous pen (Humalog Kw days #16.2 mL U-200 Insulin) valacyclovir 500 mg tablet 500 mg PO BID 90 days #180 tabs 03/07/23 Ventolin HFA 90 mcg/actuation 2 puff inhalation Q6H PRN 03/11/23 aerosol inhaler (albuterol sulfate) shortness of breath or wheezing 30 days #8 grams albuterol sulfate 90 mcg/actuation 1 - 2 puff inhalation Q4-6H PRN 03/11/23 aerosol inhaler for dyspnea #8.5 grams blood pressure monitor #1 ea 03/11/23 blood-glucose meter (FreeStyle #1 ea 03/11/23 Lite Meter kit) amoxicillin 875 mg-potassium 1 tab PO BID #14 tabs 04/03/23 clavulanate 125 mg tablet baclofen 10 mg tablet 10 mg PO BEDTIME PRN muscle spasm 04/03/23 30 days #30 tabs Allergies Allergy/AdvReac Type Severity Reaction Status Date / Time nickel Allergy Severe Rash Verified 04/03/23 10:36 acetaminophen [Percocet] Allergy Intermediate vomiting Verified 04/03/23 10:36 cyclobenzaprine Allergy Intermediate HEADACHE,DI Verified 04/03/23 10:36 [CYCLOBENZAPRINE] ZZINESS divalproex sodium [Depakote] Allergy Intermediate increase Verified 04/03/23 10:36 liver enzymes methocarbamol [METHOCARBAMOL] Allergy Intermediate TICS Verified 04/03/23 10:36 oxycodone [From PERCOCET] Allergy Intermediate VOMITING Verified 04/03/23 10:36 liraglutide [From Victoza] AdvReac Severe hypoglycemi Verified 04/03/23 10:36 a lisinopril AdvReac Severe Dizziness Verified 04/03/23 10:36 risperidone [RISPERIDONE] AdvReac Severe CHEST PAIN Verified 04/03/23 10:36 canagliflozin [Invokana] AdvReac Intermediate confusion Verified 04/03/23 10:36 dulaglutide [Trulicity] AdvReac Intermediate abdominal Verified 04/03/23 10:36 bloating, numbness, myalgia Narcotics Allergy Mild dizzy, sick Uncoded 03/04/23 12:59 Review of Systems Review of Systems: Yes all other systems are reviewed and are negative PMFSH Past Medical History Attestation statement: The following information was validated with the patient. Source: old records reviewed Medical History Basilar migraine Chest pain Chronic neck pain Diabetes mellitus Fibromyalgia Herpes simplex virus (HSV) infection Hypertension Intertrigo Migraine with aura Mixed hyperlipidemia Nickel allergy Nickel dermatitis Polyarthralgia Renal calculi Shortness of breath Surgical History History of section History of colonoscopy History of discectomy History of laparoscopic cholecystectomy History of laparoscopy History of prior ablation treatment History of tubal ligation Family History Family History Father Prostate cancer Diabetes High cholesterol HTN (hypertension) Mother Liver problem Diabetes High cholesterol HTN (hypertension) Family/Other Diabetes High cholesterol HTN (hypertension) Cancer Social History Social History Household Members: Children Housing: Apartment Alcohol intake: never Patient Tobacco Use Status: Former Tobacco user Tobacco use type: Cigarette Years Smoked: 18 e-Cigarette/Vaping Use: Never Used Second Hand Smoke Exposure: No Advance Directives: No Advance Directives Information Provided: Yes service: No Current occupational status: disabled Sexual orientation: Straight/Heterosexual Gender identity: Female Cognitive needs: No Hearing needs: No Vision needs: No Physical Exam Vital Signs: Vital Signs: Last Vital Signs Temp 96.7 F L 04/03/23 10:36 Pulse 75 04/03/23 10:36 Resp 16 04/03/23 10:36 BP 143/83 H 04/03/23 10:36 Pulse Ox 99 04/03/23 10:36 O2 Del Method Room Air 04/03/23 10:36 BMI result Body Mass Index 28.2 Appearance: Alert.?Oriented to person, place and time. No acute distress.?Normal affect. Eyes: Pupils equal, round and reactive to light.? EOMI. No nystagmus. Edema and erythema of the left upper eyelid, no conjunctival injection. ENT: Pharynx normal.?? Neck: Normal inspection.? Neck supple.?? CVS: Heart sounds normal. Normal heart rate and rhythm.? Pulses normal.?? Respiratory: No respiratory distress.? Lung sounds clear to auscultation bilaterally?? Abdomen: Soft and non-tender. Skin: Skin warm and dry.? Normal skin color.? Extremities: No lower extremity edema.? Neuro: Moves all extremities spontaneously. Sensation intact bilaterally. CN II- XII intact. No focal neuro deficits. Ambulates with normal steady gait. Medical Decision Making Medical Decision Making MDM Narrative: patient is a 62-year-old female presents emergency department for evaluation of left eye concern as per HPI. She is overall well-appearing, nontoxic, afebrile without tachycardia. This is atraumatic. Physical examination most consistent with blepharitis, at this time does not appear consistent with periorbital cellulitis, examination not consistent with orbital cellulitis. There is no conjunctival injection or discharge, less likely conjunctivitis. No visible hordeolum/ chalazion. lower suspicion for uveitis/ iritis or corneal abrasion based on history and physical examination. Will treat empirically with Augmentin And warm compresses. Advised outpatient follow-up with her primary care/ eye doctor for persistent symptoms. Reviewed worrisome signs and symptoms that would warrant re-evaluation in the emergency department. All questions answered. Stable for discharge. Differential Diagnosis Differential Diagnoses: The differential diagnosis associated with the prese ntation includes ( as noted above) External Record Review External record reviewed: Outpatient record ( Primary care record) Tests considered The following testing was considered but not selected: I considered CT imaging of the orbits for evaluation of orbital cellulitis however based on physical examination less likely at this time, CT imaging was deferred. Prescription Management I considered prescription management with: Antibiotic Discharge Plan Discharge Clinical Impression: Blepharitis Patient Disposition: Home, Self-Care Instructions: Blepharitis (ED) Additional Instructions: complete the entire course of antibiotic as prescribed. Apply warm compresses to the eye a few times daily. Follow-up with primary care provider /eye doctor for further evaluation and treatment as needed. Return back to emergency department any new or worsening symptoms or concerns. Prescriptions: New amoxicillin-pot clavulanate 875-125 mg tablet 1 tab PO BID Qty: 14 0RF No Action (DME) blood-glucose meter Kit See Rx Instructions .ROUTE .MEDSUPPLY Qty: 1 0RF Rx Instructions: As directed blood sugar diagnostic [FreeStyle Lite Strips] Strip 1 strip miscellaneous BID Qty: 200 1RF (DME) Assure ID Pen Needle 30 gauge x 5/16 needle See Rx Instructions .ROUTE .MEDSUPPLY Qty: 100 6RF Rx Instructions: Use 1 pen needle once a day cholecalciferol (vitamin D3) 25 mcg (1,000 unit) capsule 25 mcg PO DAILY 90 Days Qty: 90 1RF ibuprofen 600 mg tablet 600 mg PO TID PRN (Reason: pain) 90 Days Qty: 270 3RF metformin 1,000 mg tablet 1,000 mg PO BID Qty: 180 1RF fenofibrate 54 mg tablet 54 mg PO DAILY 90 Days Qty: 90 1RF valacyclovir 500 mg tablet 500 mg PO BID 90 Days Qty: 180 1RF (DME) blood-glucose meter [FreeStyle Lite Meter] Kit See Rx Instructions .Route Qty: 1 0RF Rx Instructions: test 3 times per day albuterol sulfate 90 mcg/actuation HFA aerosol inhaler 1 - 2 puff inhalation Q4-6H PRN (Reason: for dyspnea) Qty: 8.5 2RF (DME) blood pressure monitor Kit See Rx Instructions .ROUTE .MEDSUPPLY Qty: 1 0RF Rx Instructions: As directed albuterol sulfate [Ventolin HFA] 90 mcg/actuation HFA aerosol inhaler 2 puff inhalation Q6H PRN (Reason: shortness of breath or wheezing) 30 Days Qty: 8 1RF baclofen 10 mg tablet 10 mg PO BEDTIME PRN (Reason: muscle spasm) 30 Days Qty: 30 0RF oxcarbazepine 150 mg tablet 1 tab PO BEDTIME cyanocobalamin (vitamin B-12) 1,000 mcg Tablet 1,000 mcg PO DAILY aspirin 81 mg Tablet,Delayed Release (Dr/Ec) 81 mg PO Q48H vitamin B complex Tablet 1 tab PO DAILY alpha lipoic acid 600 mg Capsule 600 mg PO BIDAC diazepam 10 mg tablet 10 mg PO BID PRN (Reason: Muscle Spasm) (DME) pen needle, diabetic 31 gauge x 3/16 needle See Rx Instructions topical QID Qty: 50 Rx Instructions: As directed Tradjenta 5 mg tablet 5 mg PO DAILY carisoprodol 350 mg tablet 350 mg PO DAILY PRN (Reason: Muscle Spasm) 30 Days Qty: 30 0RF Humalog KwikPen Insulin 200 unit/mL (3 mL) insulin pen 18 unit subcut BID 90 Days Qty: 16.2 3RF (DME) pen needle, diabetic [Advocate Pen Needle] 31 gauge x 5/16 needle See Rx Instructions .Route Qty: 100 3RF Rx Instructions: Use 1 pen needle once a day bacitracin 500 unit/gram ointment 1 appl topical Q8H 14 Days Qty: 28 1RF clotrimazole-betamethasone 1-0.05 % cream 1 appl topical BID PRN (Reason: itching) 7 Days Qty: 45 0RF fluconazole [Diflucan] 150 mg tablet 150 mg PO ONCE PRN (Reason: personal) 1 Days Qty: 1 0RF Referrals: An Gregory MD [Primary Care Provider] -
== END 2023-04-03 12:20 | disposition home or self-care (01) ==
PROVIDERS: Emergency Provider Student in an Organized Health Care Education/Training Program; PCP Internal Medicine
DX: H01.004 Unspecified blepharitis left upper eyelid (principal); H57.12 Ocular pain, left eye; E11.9 Type 2 diabetes mellitus without complications; I10 Essential (primary) hypertension; E78.2 Mixed hyperlipidemia; Z79.82 Long term (current) use of aspirin; Z79.899 Other long term (current) drug therapy; Z79.4 Long term (current) use of insulin
CPT/HCPCS: 99283

== ENCOUNTER 2023-04-13 15:41 | Observation (INO) | payer OTHER, SELFPAY ==
[2023-04-13] VITALS (7 sets, daily range): BP systolic 129–147; BP diastolic 66–76; PULSE 63–79; RESP 13–18; TEMP 36–36.6; O2SAT 97–99; BMI 27.2
--- NOTE | ~2023-04-13 | CT_ITS ---
EXAMINATION: CT HEAD WITHOUT CONTRAST CLINICAL INFORMATION: Weakness. COMPARISON: MR head dated 03/02/2022. Head CTA dated 03/01/2022. TECHNIQUE: Contiguous axial imaging was performed from the skull base to vertex without intravenous administration of contrast. Coronal and sagittal reformatted images were obtained. This CT examination was performed using dose optimization techniques as appropriate, variously including the following: *Automated exposure control *Adjustment of mA and/or kV according to patient size (this includes techniques or standardized protocols for targeted exams where dose is matched to indication/reason for exam; i.e. extremities or head) *Use of iterative reconstruction technique DLP: 668 mGy-cm FINDINGS: The cortical sulci are normal. The lateral ventricles are symmetrical. The third and fourth ventricles are in their normal midline position. The basilar and prepontine cisterns are unremarkable. There is no acute intra or extracerebral abnormality. There is no mass effect or midline shift. Sections through the bony calvarium are unremarkable. The paranasal sinuses are clear. The bony orbits and orbital contents are unremarkable. CT/CT head/brain wo IV con IMPRESSION: No acute intracranial pathology.
--- NOTE | ~2023-04-13 | MR_ITS ---
EXAMINATION: MR BRAIN WITHOUT CONTRAST CLINICAL INFORMATION: Headache. Vertigo. COMPARISON: CT head 04/13/2023. TECHNIQUE: Multiplanar MR imaging the brain was performed without contrast. FINDINGS: There is no acute territorial infarct. No pathological magnetic susceptibility artifact. Intracranial vascular flow voids are maintained. There is no intracranial mass effect or midline shift. No abnormal extra-axial collection. Lateral and third ventricles are normal. No hydrocephalus. Midline structures including the cervicomedullary junction are normal. No acute bone marrow signal changes. There is no mastoid middle ear effusion. Trivial mucosal thickening within the ethmoid air cells. Globes and orbits are symmetric. MR/MR head/brain wo con IMPRESSION: Normal brain MRI.
--- NOTE | 2023-04-13 15:46 | ED_ITS ---
HPI - General Adult General Chief complaint: Dizziness Stated complaint: Can't see/everything spinning Time Seen by Provider: 04/13/23 21:08 Source: patient, RN notes reviewed and old records reviewed Mode of arrival: ambulatory History of Present Illness HPI narrative: 62-year-old female with a past medical history diabetes, fibromyalgia, HTN, migraines with aura, HLD, polyarthralgia, nickel dermatitis, presenting to the ED complaining of room spinning dizziness worse with position changes and headache x 2 days. Reports mild blurry vision & generalized fatigue/weakness. Admits to similar symptoms many years ago. Denies chest pain, shortness of breath, focal weakness, injury/trauma or fall, dysuria/hematuria, abdominal pain, nausea/vomiting. Onset (ago): day(s) Related Data Home Medications Medication Instructions Recorded Confirmed diazepam 10 mg tablet 10 mg PO BID PRN Muscle Spasm 09/03/20 03/04/23 pen needle, diabetic 31 gauge x #50 ea 09/03/20 03/04/2312/03 alpha lipoic acid 600 mg capsule 600 mg PO BIDAC 03/01/22 03/04/23 aspirin 81 mg tablet,delayed 81 mg PO Q48H 03/01/22 03/04/23 release cyanocobalamin (vitamin B-12) 1,000 mcg PO DAILY 03/01/22 03/04/23 1,000 mcg tablet oxcarbazepine 150 mg tablet 1 tab PO BEDTIME 03/01/22 03/04/23 vitamin B complex 1 tab PO DAILY 03/01/22 03/04/23 linagliptin 5 mg tablet (Tradjenta) 5 mg PO DAILY 03/04/23 03/04/23 Previous Rx's Medication Instructions Recorded blood-glucose meter #1 ea 07/31/20 blood sugar diagnostic (FreeStyle 1 strip miscellaneous BID for 08/09/20 Lite Strips) diabetes mellitus #200 strips pen needle, diabetic, safety 30 #100 ea 03/25/22 gauge x 5/16 (Assure ID Pen Needle) pen needle, diabetic 31 gauge x #100 ea 07/07/22 516 (Advocate Pen Needle) cholecalciferol (vitamin D3) 25 25 mcg PO DAILY 90 days #90 caps 07/14/22 mcg (1,000 unit) capsule ibuprofen 600 mg tablet 600 mg PO TID PRN pain 90 days 07/30/22 #270 tabs bacitracin 500 unit/gram topical 1 appl topical Q8H 2 weeks #28 10/01/22 ointment grams metformin 1,000 mg tablet 1,000 mg PO BID #180 tabs 10/23/22 clotrimazole-betamethasone 1 1 appl topical BID PRN itching 7 12/03/22 %-0.05 % topical cream days #45 grams fenofibrate 54 mg tablet 54 mg PO DAILY 90 days #90 tabs 12/03/22 fluconazole 150 mg tablet 150 mg PO ONCE PRN personal 1 day 12/03/22 (Diflucan) #1 tab carisoprodol 350 mg tablet 350 mg PO DAILY PRN Muscle Spasm 03/04/23 30 days #30 tabs insulin lispro 200 unit/mL (3 mL) 18 unit (0.09 mL) subcut BID 90 03/04/23 subcutaneous pen (Humalog Kw days #16.2 mL U-200 Insulin) valacyclovir 500 mg tablet 500 mg PO BID 90 days #180 tabs 03/07/23 Ventolin HFA 90 mcg/actuation 2 puff inhalation Q6H PRN 03/11/23 aerosol inhaler (albuterol sulfate) shortness of breath or wheezing 30 days #8 grams albuterol sulfate 90 mcg/actuation 1 - 2 puff inhalation Q4-6H PRN 03/11/23 aerosol inhaler for dyspnea #8.5 grams blood pressure monitor #1 ea 03/11/23 blood-glucose meter (FreeStyle #1 ea 03/11/23 Lite Meter kit) amoxicillin 875 mg-potassium 1 tab PO BID #14 tabs 04/03/23 clavulanate 125 mg tablet baclofen 10 mg tablet 10 mg PO BEDTIME PRN muscle spasm 04/03/23 30 days #30 tabs Allergies Allergy/AdvReac Type Severity Reaction Status Date / Time nickel Allergy Severe Rash Verified 04/13/23 15:44 acetaminophen [Percocet] Allergy Intermediate vomiting Verified 04/13/23 15:44 cyclobenzaprine Allergy Intermediate HEADACHE,DI Verified 04/13/23 15:44 [CYCLOBENZAPRINE] ZZINESS divalproex sodium [Depakote] Allergy Intermediate increase Verified 04/13/23 15:44 liver enzymes methocarbamol [METHOCARBAMOL] Allergy Intermediate TICS Verified 04/13/23 15:44 oxycodone [From PERCOCET] Allergy Intermediate VOMITING Verified 04/13/23 15:44 liraglutide [From Victoza] AdvReac Severe hypoglycemi Verified 04/13/23 15:44 a lisinopril AdvReac Severe Dizziness Verified 04/13/23 15:44 risperidone [RISPERIDONE] AdvReac Severe CHEST PAIN Verified 04/13/23 15:44 canagliflozin [Invokana] AdvReac Intermediate confusion Verified 04/13/23 15:44 dulaglutide [Trulicity] AdvReac Intermediate abdominal Verified 04/13/23 15:44 bloating, numbness, myalgia Narcotics Allergy Mild dizzy, sick Uncoded 03/04/23 12:59 Review of Systems Review of Systems: Constitutional: No Fever, No Chills, + Fatigue, + Malaise ENT/Mouth: No Ear Pain, No Nasal Congestion, No Sinus Pain, No Hoarseness, No sore throat, No Rhinorrhea, No Swallowing Difficulty Eyes: No Eye Pain, No Swelling, No Redness, +Vision Changes Cardiovascular: No Chest Pain, No SOB, No Edema, No Palpitations Respiratory: No Cough, No Sputum, No Dyspnea Gastrointestinal: No Nausea, No Vomiting, No Diarrhea, No Constipation, No Abdominal pain Genitourinary: No Dysuria, No Urinary Frequency, No Hematuria, No Flank Pain Musculoskeletal: No joint pain, No Myalgias, No Joint Swelling Skin: No Skin Lesions, No rash Neuro: + Weakness, No Numbness, No Paresthesias, No Loss of Consciousness, + Dizziness, + Headache Yes all other systems are reviewed and are negative Constitutional: Constitutional: Reports as per HPI Neurologic: Denies Abnormal speech present [facility] Past Medical History Attestation statement: The following information was validated with the patient. Source: old records reviewed Medical History Basilar migraine Chest pain Chronic neck pain Diabetes mellitus Fibromyalgia Herpes simplex virus (HSV) infection Hypertension Intertrigo Migraine with aura Mixed hyperlipidemia Nickel allergy Nickel dermatitis Polyarthralgia Renal calculi Shortness of breath Surgical History History of section History of colonoscopy History of discectomy History of laparoscopic cholecystectomy History of laparoscopy History of prior ablation treatment History of tubal ligation Family History Family History Father Prostate cancer Diabetes High cholesterol HTN (hypertension) Mother Liver problem Diabetes High cholesterol HTN (hypertension) Family/Other Diabetes High cholesterol HTN (hypertension) Cancer Social History Social History Household Members: Children Housing: Apartment Alcohol intake: never Patient Tobacco Use Status: Former Tobacco user Tobacco use type: Cigarette Years Smoked: 18 Smoked in Last 30 Days: No e-Cigarette/Vaping Use: Never Used Second Hand Smoke Exposure: No Use of substances other than those prescribed or required for medical reasons: No Advance Directives: No Advance Directives Information Provided: Yes service: No Current occupational status: disabled Sexual orientation: Straight/Heterosexual Gender identity: Female Cognitive needs: No Hearing needs: No Vision needs: No Physical Exam ED Vital Signs: Vital Signs - 24 hr 04/13/23 15:44 04/13/23 19:51 04/13/23 20:49 Temperature 96.8 F 96.8 F 98 F Pulse Rate 74 63 69 Respiratory Rate 18 18 13 Blood Pressure 140/71 H 140/66 H 129/66 Pulse Oximetry 98 99 99 Oxygen Delivery Method Room Air Room Air Room Air 04/13/23 21:29 04/13/23 21:31 04/13/23 21:32 Temperature Pulse Rate 66 74 73 Respiratory Rate Blood Pressure 129/70 136/76 147/72 H Pulse Oximetry Oxygen Delivery Method 04/13/23 22:52 Temperature 98 F Pulse Rate 79 Respiratory Rate 13 Blood Pressure 143/74 H Pulse Oximetry 97 Oxygen Delivery Method Room Air BMI result Body Mass Index 27.2 Const General: cooperative, healthy appearing and no acute distress Orientation/consciousness: patient oriented x3 Limitations: no limitations HENMT Head: Yes normal to inspection and Yes atraumatic Ears: hearing grossly normal bilaterally, external ears normal, TM's normal bilaterally and mastoids normal General nose exam: Normal external nose present Face and sinus: Yes normal facial exam Mouth: Normal oral and palatal mucosa present Throat: Yes posterior oropharynx normal, Yes tonsils normal, Yes uvula midline, No peritonsillar mass, No uvula laterally displaced and No uvular edema Eyes General: appearance normal, both eyes and all related structures Pupils: Equal, round and reactive pupils present EOM: EOMs intact bilaterally Direct Ophthalmoscopy: no photophobia Neck Neck: Yes normal visual inspection, Yes no meningeal signs and No anterior neck swelling Resp Effort & Inspection: normal respiratory effort and no respiratory distress Auscultation: clear to auscultation bilaterally, no crackles and no wheezes Cardio Rate: regular rate Heart sounds: S1 normal heart sound present and S2 normal heart sound present GI Inspection: Yes normal to inspection Palpation (GI): Soft to palpation, nontender, no guarding and not rigid General: Yes no CVA tenderness Back/Spine/Pelvis Back: no CVA tenderness Skin Rashes: no rashes Wounds: no wounds Neuro General: patient oriented x3, gait normal (Slow and steady, no ataxia), tone normal, moves all extremities and no meningeal signs Cranial nerves: Yes CN's II-XII intact bilaterally, Yes Equal, round and reactive pupils present, Yes Bilaterally intact EOM present, Yes Nystagmus not present and Yes Midline tongue present Cognition (Neuro): normal cognition Speech: No Abnormal speech present Gait exam (Neuro): Normal gait present Motor exam (neuro): 5/5 motor strength present throughout, Pronator motor function not present and no tremor noted Coordination: [id number] test normal Romberg Test: Negative Extrem General: Yes normal to inspection Course Course Course Narrative: RME- 62-year-old female presents for evaluation of dizziness, weakness and headaches. She reports her symptoms started approximately 24 hours ago. Describes a history of vertigo when she was . Stroke score 0. Plan for labs, CT scan the brain. -2231--no leukocytosis, hyperglycemic to 303, no anion gap -UA with glucose, not infected, no ketones CT head/brain wo IV con IMPRESSION: No acute intracranial pathology. -orthostatic vital signs negative -2346--patient received Fioricet and IV Ativan with out any resolution, still reports continued room spinning dizziness. Objectively patient appears well. Patient states she does not feel safe for discharge home at this time > will admit for further management Medications Administered Generic Name Dose Route Start Last Admin Trade Name Freq PRN Reason Stop Dose Admin Lactated Ringer's 1,000 mls @ 100 mls/hr 04/14/23 01:15 04/14/23 01:28 Lr IVCONT 100 mls/hr .Q10H RENITA Administration Discontinued Medications Generic Name Dose Route Start Last Admin Trade Name Dawna PRN Reason Stop Dose Admin Acetaminophen/Butalbital/Caffeine 2 tab 04/13/23 22:28 04/13/23 22:40 Butalb/Acetamin/Caff 50/325/40 Tablet PO 04/13/23 22:29 2 tab ONCE ONE Administration Diphenhydramine HCl 12.5 mg 04/13/23 21:22 04/13/23 21:35 Diphenhydramine Hcl 50 Mg/Ml Vial IVPUSH 04/13/23 21:23 12.5 mg ONCE ONE Administration Sodium Chloride 1,000 mls @ 999 mls/hr 04/13/23 21:30 04/13/23 23:05 Ns IV 04/13/23 22:30 Infused .Q1H1M RENITA Infusion Lorazepam 1 mg 04/13/23 22:53 04/13/23 23:01 Lorazepam 2 Mg/Ml Vial IVPUSH 04/13/23 22:54 1 mg ONCE ONE Administration Meclizine HCl 25 mg 04/13/23 21:22 04/13/23 21:35 Meclizine Hcl 25 Mg Tablet PO 04/13/23 21:23 25 mg ONCE ONE Administration Medical Decision Making Medical Decision Making [facility] Narrative: 62-year-old female with a past medical history diabetes, fibromyalgia, HTN, migraines with aura, HLD, polyarthralgia, nickel dermatitis, presenting to the ED complaining of room spinning dizziness worse with position changes and headache x 2 days. Reports mild blurry vision & generalized fatigue/weakness. On exam vital signs stable, NAD, nontoxic appearing, no appreciable nystagmus, no focal neuro deficits, ambulating with steady gait without ataxia. Concern for BPPV/vertigo vs CVA, symptoms not consistent with TIA. Lower suspicion for SAH, meningitis/encephalitis. r/o metabolic abnormalities. Lower suspicion for ACS. No evidence of otitis Plan: EKG, labs, head CT, orthostatics, IVF, symptomatic treatment, re-evaluate Please refer to course for remaining clinical decision making, interpretation of labs/imaging results, and discussions with consultants and/or family members. Differential Diagnosis Differential Diagnoses: The differential diagnosis associated with the presentation includes As above Admission/Observation Consideration of admission/observation: Escalation of care including admission/observation considered Lab Data [facility] Lab Attestation statement: I reviewed the patient's lab results. 04/13/23 16:41 04/13/23 16:41 Labs: Lab Results 04/13/23 04/13/23 04/13/23 Range/Units 16:41 16:41 16:41 WBC 6.3 (4.8-10.8) X10*3/uL RBC 4.70 (4.20-5.50) X10*6/uL Hgb 13.8 (12.0-16.0) g/dl Hct 41.4 (37.0-47.0) % MCV 88.1 (80.0-98.0) fL MCH 29.4 (27.0-33.0) pg MCHC 33.3 (31.0-35.0) g/dl RDW 12.5 (11.0-16.0) % Plt Count 173 (160-400) X10*3/uL MPV 11.7 (9.4-12.3) fL Immature Gran % (Auto) 0.2 (0.0-0.4) % Neut % (Auto) 44.4 L (45-73) % Lymph % (Auto) 45.6 H (20-40) % [place] % (Auto) 7.4 (2-11) % Eos % (Auto) 2.1 (0-4) % Baso % (Auto) 0.3 (0-2) % Lymph # (Auto) 2.9 (1.2-4.9) X10*3/uL [place] # (Auto) 0.5 (0.1-1.2) X10*3/uL Eos # (Auto) 0.1 (0.0-0.4) X10*3/uL Baso # (Auto) 0.0 (0.0-0.2) X10*3/uL Abs Immat Gran (auto) 0.01 (0.00-0.03) X10*3/uL Absolute Neuts (auto) 2.8 (2.0-8.3) x10*3/uL Absolute Nucleated RBC 0.000 (0.0-0.012) X10*3/uL Nucleated RBC % (auto) 0.0 (0.0-0.2) /100WBC PT 12.5 (11.1-13.3) SEC INR 1.0 (0.9-1.1) APTT 29.4 (26.0-36.4) SEC Sodium 138 (135-145) mmol/L Potassium 4.0 (3.3-5.1) mmol/L Chloride 101 (96-108) mmol/L Carbon Dioxide 30 H (22-29) mmol/L Anion Gap 11 L (12-20) BUN 7 L (9-16) mg/dL Creatinine 0.74 (0.5-1.4) mg/dL Estim Creat Clear Calc 63.5 Estimated GFR > 60 POC Glucose (60-115) mg/dL Random Glucose 247 H (60-115) mg/dL Calcium 10.2 D (8.4-10.2) mg/dL Magnesium 1.9 (1.6-2.6) mg/dL Total Bilirubin 0.9 (0.0-1.0) mg/dL AST 31 (5-31) U/L ALT 27 (0-31) U/L Alkaline Phosphatase 104 (39-117) U/L Troponin I High Sens (<3.5-17.0) ng/L Total Protein 7.3 (6.5-8.0) g/dL Albumin 4.0 (3.5-5.0) g/dL Lipase 61 (8-78) U/L Beta-Hydroxybutyrate 0.09 (0.02-0.27) mmol/L Urine Color Urine Appearance Urine pH (5.0-9.0) Ur Specific [place] (1.005-1.025) Urine Protein (Neg-Trace) mg/dL Urine Glucose (UA) (Negative) mg/dL Urine Ketones (Negative) mg/dL Urine Blood (Negative) Urine Nitrite (Negative) Ur Leukocyte Esterase (Negative) Urine RBC (0-2) /HPF Urine WBC (0-5) /HPF Ur Squamous Epith Cells (0-2) /HPF Urine Bacteria (None Seen) Hyaline Casts (0-2) /LPF 04/13/23 04/13/23 04/13/23 Range/Units 17:46 20:37 23:16 WBC (4.8-10.8) X10*3/uL RBC (4.20-5.50) X10*6/uL Hgb (12.0-16.0) g/dl Hct (37.0-47.0) % MCV (80.0-98.0) fL MCH (27.0-33.0) pg MCHC (31.0-35.0) g/dl RDW (11.0-16.0) % Plt Count (160-400) X10*3/uL MPV (9.4-12.3) fL Immature Gran % (Auto) (0.0-0.4) % Neut % (Auto) (45-73) % Lymph % (Auto) (20-40) % [place] % (Auto) (2-11) % Eos % (Auto) (0-4) % Baso % (Auto) (0-2) % Lymph # (Auto) (1.2-4.9) X10*3/uL [place] # (Auto) (0.1-1.2) X10*3/uL Eos # (Auto) (0.0-0.4) X10*3/uL Baso # (Auto) (0.0-0.2) X10*3/uL Abs Immat Gran (auto) (0.00-0.03) X10*3/uL Absolute Neuts (auto) (2.0-8.3) x10*3/uL Absolute Nucleated RBC (0.0-0.012) X10*3/uL Nucleated RBC % (auto) (0.0-0.2) /100WBC PT (11.1-13.3) SEC INR (0.9-1.1) APTT (26.0-36.4) SEC Sodium (135-145) mmol/L Potassium (3.3-5.1) mmol/L Chloride (96-108) mmol/L Carbon Dioxide (22-29) mmol/L Anion Gap (12-20) BUN (9-16) mg/dL Creatinine (0.5-1.4) mg/dL Estim Creat Clear Calc Estimated GFR POC Glucose 303 H (60-115) mg/dL Random Glucose (60-115) mg/dL Calcium (8.4-10.2) mg/dL Magnesium (1.6-2.6) mg/dL Total Bilirubin (0.0-1.0) mg/dL AST (5-31) U/L ALT (0-31) U/L Alkaline Phosphatase (39-117) U/L Troponin I High Sens < 2.7 (<3.5-17.0) ng/L Total Protein (6.5-8.0) g/dL Albumin (3.5-5.0) g/dL Lipase (8-78) U/L Beta-Hydroxybutyrate (0.02-0.27) mmol/L Urine Color Yellow Urine Appearance Clear Urine pH 8.0 (5.0-9.0) Ur Specific [place] 1.015 (1.005-1.025) Urine Protein Negative (Neg-Trace) mg/dL Urine Glucose (UA) >=1000 H (Negative) mg/dL Urine Ketones Negative (Negative) mg/dL Urine Blood Negative (Negative) Urine Nitrite Negative (Negative) Ur Leukocyte Esterase Negative (Negative) Urine RBC 0-2 (0-2) /HPF Urine WBC 0-5 (0-5) /HPF Ur Squamous Epith Cells 0-2 (0-2) /HPF Urine Bacteria None Seen (None Seen) Hyaline Casts 0-2 (0-2) /LPF Independent Interpretation I performed an independent interpretation of an: EKG Radiology Impression Discussion of test interpretation with radiology: I have reviewed the radiologist's reading. Independent Historian Clinical information obtained from an independent historian. History obtained from or confirmed by: Other (Son) External Record Review External record reviewed: Inpatient record, Office record, Outpatient record, Prior outpatient labs, Prior outpatient radiology, Primary care record and Outside ED record Tests considered The following testing was considered but not selected: As above Prescription Management I considered prescription management with: Other Chronic Conditions Patient?s care impacted by: Diabetes Critical Care Time Critical Care Time Critical Care Time: Yes Total Critical Care Time: 35 Attestation: I have personally provided critical care time exclusive of time spent on separately billable procedures. Time includes review of lab data, radiology r esults, discussion with consultants, and monitoring for potential decompensation. Intervention performed as documented. Discharge Plan Discharge Clinical Impression: Dizziness Patient Disposition: Admitted As Inpatient
--- NOTE | 2023-04-13 15:47 | ECG_ITS ---
Test Reason : Pain Blood Pressure : / mmHG Vent. Rate : 067 BPM Atrial Rate : 067 BPM P-R Int : 144 ms QRS Dur : 082 ms QT Int : 386 ms P-R-T Axes : 053 -12 043 degrees QTc Int : 407 ms Normal sinus rhythm Normal ECG When compared with ECG of 01-MAR-2022 13:41, No significant change was found Referred By: Eric Darby Electronically Signed By:JUNIE GONZALEZ MD
[2023-04-13 16:59] LABS: MANUAL DIFF FLAG NO
[2023-04-13 17:14] LABS: Basophils Percent Auto 0.3 % (0-2); Eosinophils Absolute Auto 0.1 X10*3/uL (0.0-0.4); Eosinophils Percent Auto 2.1 % (0-4); Hematocrit 41.4 % (37.0-47.0); Hemoglobin 13.8 g/dl (12.0-16.0); Imm Gran Abs Auto 0.01 X10*3/uL (0.00-0.03); Imm Gran Pct Auto 0.2 % (0.0-0.4); Lymphocytes Absolute Auto 2.9 X10*3/uL (1.2-4.9); Lymphocytes Percent Auto 45.6 % (20-40); Mean Corpuscular HGB Conc 33.3 g/dl (31.0-35.0); Mean Corpuscular Hemoglobin 29.4 pg (27.0-33.0); Mean Corpuscular Volume 88.1 fL (80.0-98.0); Mean Platelet Volume 11.7 fL (9.4-12.3); Monocytes Absolute Auto 0.5 X10*3/uL (0.1-1.2); Monocytes Percent Auto 7.4 % (2-11); Neutrophils Absolute Auto 2.8 x10*3/uL (2.0-8.3); Neutrophils Percent Auto 44.4 % (45-73); Platelet Count 173 X10*3/uL (160-400); Red Cell Distribution Width 12.5 % (11.0-16.0); White Blood Count 6.3 X10*3/uL (4.8-10.8)
[2023-04-13 17:19] LABS: Prothrombin Time 12.5 SEC (11.1-13.3)
[2023-04-13 17:22] LABS: Partial Thromboplastin Time 29.4 SEC (26.0-36.4)
[2023-04-13 17:27] LABS: Alanine Aminotransferase 27 U/L (0-31); Alkaline Phosphatase 104 U/L (39-117); Anion Gap 11 (12-20); Aspartate Amino Transferase 31 U/L (5-31); Beta-Hydroxybutyrate 0.09 mmol/L (0.02-0.27); Bilirubin Total 0.9 mg/dL (0.0-1.0); Blood Urea Nitrogen 7 mg/dL (9-16); Calcium 10.2 mg/dL (8.4-10.2); Carbon Dioxide 30 mmol/L (22-29); Chloride 101 mmol/L (96-108); Creatinine Clr Calc Pharmacy 63.5; Estimated Glomerular Filt Rate > 60; Glucose Random 247 mg/dL (60-115); Lipase 61 U/L (8-78); Sodium 138 mmol/L (135-145); Total Protein 7.3 g/dL (6.5-8.0)
[2023-04-13 17:55] LABS: Appearance Urine Clear; Color Urine Yellow; Glucose Urine UA >=1000 mg/dL (Negative); Leukocyte Esterase Urine Negative (Negative); Nitrite Urine Negative (Negative); Specific Gravity - Urine 1.015 (1.005-1.025); UMIC TRIGGER UACC YES; Urine Blood Negative (Negative); Urine Ketones Negative (Negative); Urine Protein Negative (Neg-Trace)
[2023-04-13 17:57] LABS: Bacteria Urine None Seen (None Seen); Hyaline Casts Urine 0-2 /LPF (0-2); RBC Urine 0-2 /HPF (0-2); Squamous Epithelial Cell Urine 0-2 /HPF (0-2); WBC Urine 0-5 /HPF (0-5)
--- NOTE | 2023-04-13 19:54 | PC.NURSE ---
pt reports cont'd dizziness/headaches, ambulated with a steady gait to triage, pt requesting POC, order placed, triage tech aware.
[2023-04-13 20:42] LABS: Glucose, Whole Blood 303 mg/dL (60-115)
[2023-04-13] MEDS: 0.9 % Sodium Chloride 1,000 ML 999 ML IV (21:35)
[2023-04-13] MEDS: diphenhydrAMINE HCL 50 MG/ML VIAL 12.5 MG IVPUSH (21:35)
[2023-04-13] MEDS: Meclizine HCl 25 MG TABLET PO (21:35)
[2023-04-13 21:36] LABS: Magnesium 1.9 mg/dL (1.6-2.6)
--- NOTE | 2023-04-13 21:54 | PC.NURSE ---
ORTHO completed, medicated per mar, pt on bedside monitor. Will continue to monitor.
[2023-04-13] MEDS: Butalb/Acetamin/Caff 50/325/40 TABLET 2 TAB PO (22:40)
--- NOTE | 2023-04-13 22:51 | PC.NURSE ---
Medicated per Nov. Will continue to moniotr.
[2023-04-13] MEDS: LORazepam 2 MG/ML VIAL 1 MG IVPUSH (23:01)
--- NOTE | 2023-04-13 23:04 | PC.NURSE ---
Medicated pt per Mar.
[2023-04-13 23:46] LABS: Troponin-I High Sensitivity < 2.7 ng/L (<3.5-17.0)
[2023-04-14] VITALS (15 sets, daily range): BP systolic 117–148; BP diastolic 62–84; PULSE 67–87; RESP 14–68; TEMP 35.9–36.8; O2SAT 95–99
--- NOTE | 2023-04-14 01:13 | P.HPHOSP_ITS ---
History of Present Illness Date of Service: 04/14/23 Chief Complaint: Vertigo, headache This is a 62-year-old female past medical history of migraine headaches, diabetes, fibromyalgia, HTN, hyperlipidemia, polyarthralgia, GERD, chronic pancreatitis, history of TIA, comes into the hospital with complaints of vertig o, as well as severe headache and abdominal pain. Patient reports that her symptoms started 2 days prior, she has significant vertigo when getting up from a seated position or when she is laying down, walking also makes it difficult she feels like she is about to fall as a result of the vertigo, she reports significant left-sided headache, she states that she has blurred vision, denies any chest pain, but has diffuse abdominal pain associated with diarrhea that has now resolved, denies any fever, no chills, reports no nausea or vomiting, no urinary symptoms and no lower extremity edema Denies any recent ear infection but reports that she was recently treated for orbital cellulitis and was on oral antibiotics which she completed about a week ago. On arrival to the ED patient hemodynamically stable with no significant abnormal vitals Labs are reviewed and are unremarkable with no significant abnormality, UA negative, head CT shows no acute intracranial pathology Orthostatic vitals negative But patient is adamant that she cannot go home and does not feel safe going home with this type of headache. Patient will be admitted for further evaluation Review of Systems Review of Systems: Yes all other systems are reviewed and are negative [facility] Medical History Basilar migraine Chest pain Chronic neck pain Diabetes mellitus Fibromyalgia Herpes simplex virus (HSV) infection Hypertension Intertrigo Migraine with aura Mixed hyperlipidemia Nickel allergy Nickel dermatitis Polyarthralgia Renal calculi Shortness of breath Family History Father Prostate cancer Diabetes High cholesterol HTN (hypertension) Mother Liver problem Diabetes High cholesterol HTN (hypertension) Family/Other Diabetes High cholesterol HTN (hypertension) Cancer Surgical History History of section History of colonoscopy History of discectomy History of laparoscopic cholecystectomy History of laparoscopy History of prior ablation treatment History of tubal ligation Social History Household Members: Children Housing: Apartment Alcohol intake: never Patient Tobacco Use Status: Former Tobacco user Tobacco use type: Cigarette Years Smoked: 18 Smoked in Last 30 Days: No e-Cigarette/Vaping Use: Never Used Second Hand Smoke Exposure: No Use of substances other than those prescribed or required for medical reasons: No Advance Directives: No Advance Directives Information Provided: Yes service: No Current occupational status: disabled Sexual orientation: Straight/Heterosexual Gender identity: Female Cognitive needs: No Hearing needs: No Vision needs: No Meds Allergies Allergy/AdvReac Type Severity Reaction Status Date / Time nickel Allergy Severe Rash Verified 04/13/23 15:44 acetaminophen [Percocet] Allergy Intermediate vomiting Verified 04/13/23 15:44 cyclobenzaprine Allergy Intermediate HEADACHE,DI Verified 04/13/23 15:44 [CYCLOBENZAPRINE] ZZINESS divalproex sodium [Depakote] Allergy Intermediate increase Verified 04/13/23 15:44 liver enzymes methocarbamol [METHOCARBAMOL] Allergy Intermediate TICS Verified 04/13/23 15:44 oxycodone [From PERCOCET] Allergy Intermediate VOMITING Verified 04/13/23 15:44 liraglutide [From Victoza] AdvReac Severe hypoglycemi Verified 04/13/23 15:44 a lisinopril AdvReac Severe Dizziness Verified 04/13/23 15:44 risperidone [RISPERIDONE] AdvReac Severe CHEST PAIN Verified 04/13/23 15:44 canagliflozin [Invokana] AdvReac Intermediate confusion Verified 04/13/23 15:44 dulaglutide [Trulicity] AdvReac Intermediate abdominal Verified 04/13/23 15:44 bloating, numbness, myalgia Narcotics Allergy Mild dizzy, sick Uncoded 03/04/23 12:59 Home Medications Medication Instructions Recorded Confirmed Last Taken Type diazepam 10 mg tablet 10 mg PO BID PRN Muscle Spasm 09/03/20 03/04/23 Unknown History pen needle, diabetic 31 gauge x #50 ea 09/03/20 03/04/23 Unknown History 12/03 alpha lipoic acid 600 mg capsule 600 mg PO BIDAC 03/01/22 03/04/23 Unknown History aspirin 81 mg tablet,delayed 81 mg PO Q48H 03/01/22 03/04/23 Unknown History release cyanocobalamin (vitamin B-12) 1,000 mcg PO DAILY 03/01/22 03/04/23 03/01/22 Hi story 1,000 mcg tablet oxcarbazepine 150 mg tablet 1 tab PO BEDTIME 03/01/22 03/04/23 Unknown History vitamin B complex 1 tab PO DAILY 03/01/22 03/04/23 03/01/22 History linagliptin 5 mg tablet (Tradjenta) 5 mg PO DAILY 03/04/23 03/04/23 Unknown History Physical Exam Vital Signs and Narrative: Vital Signs: Last Vital Signs Temp 98 F 04/13/23 22:52 Pulse 79 04/13/23 22:52 Resp 13 04/13/23 22:52 BP 143/74 H 04/13/23 22:52 Pulse Ox 97 04/13/23 22:52 O2 Del Method Room Air 04/13/23 22:52 BMI result Body Mass Index 27.2 Const: General: cooperative and no acute distress Orientation/consciousness: patient oriented x3 Eyes: General: appearance normal, both eyes and all related structures Resp: Effort & Inspection: normal respiratory effort Auscultation: clear to auscultation bilaterally Cardio: Rate: regular rate Rhythm: regular rhythm GI: Palpation (GI): Soft to palpation Auscultation: normal bowel sounds Skin: General skin exam: no rashes or lesions noted Neuro: Other: Strength is 5/5 in all extremities, cranial nerves 2-12 intact, gait is appropriate, General: patient oriented x3 Cognition (Neuro): normal cognition Extrem: General: Yes normal to inspection and Yes no pedal edema Results Labs 04/13/23 16:41 04/13/23 16:41 Labs: Laboratory Results - last 24 hr 04/13/23 04/13/23 04/13/23 16:41 16:41 16:41 MCV 88.1 MCH 29.4 MCHC 33.3 RDW 12.5 Plt Count 173 MPV 11.7 Immature Gran % (Auto) 0.2 Neut % (Auto) 44.4 L Lymph % (Auto) 45.6 H [place] % (Auto) 7.4 Eos % (Auto) 2.1 Baso % (Auto) 0.3 Lymph # (Auto) 2.9 [place] # (Auto) 0.5 Eos # (Auto) 0.1 Baso # (Auto) 0.0 Abs Immat Gran (auto) 0.01 Absolute Neuts (auto) 2.8 Absolute Nucleated RBC 0.000 Nucleated RBC % (auto) 0.0 PT 12.5 INR 1.0 APTT 29.4 Anion Gap 11 L Estim Creat Clear Calc 63.5 Estimated GFR > 60 POC Glucose Random Glucose 247 H Calcium 10.2 D Magnesium 1.9 Total Bilirubin 0.9 AST 31 ALT 27 Alkaline Phosphatase 104 Total Protein 7.3 Albumin 4.0 Lipase 61 Beta-Hydroxybutyrate 0.09 Urine Color Urine Appearance Urine pH Ur Specific [place] Urine Protein Urine Glucose (UA) Urine Ketones Urine Blood Urine Nitrite Ur Leukocyte Esterase Urine RBC Urine WBC Ur Squamous Epith Cells Urine Bacteria Hyaline Casts 04/13/23 04/13/23 17:46 20:37 MCV MCH MCHC RDW Plt Count MPV Immature Gran % (Auto) Neut % (Auto) Lymph % (Auto) [place] % (Auto) Eos % (Auto) Baso % (Auto) Lymph # (Auto) [place] # (Auto) Eos # (Auto) Baso # (Auto) Abs Immat Gran (auto) Absolute Neuts (auto) Absolute Nucleated RBC Nucleated RBC % (auto) PT INR APTT Anion Gap Estim Creat Clear Calc Estimated GFR POC Glucose 303 H Random Glucose Calcium Magnesium Total Bilirubin AST ALT Alkaline Phosphatase Total Protein Albumin Lipase Beta-Hydroxybutyrate Urine Color Yellow Urine Appearance Clear Urine pH 8.0 Ur Specific [place] 1.015 Urine Protein Negative Urine Glucose (UA) >=1000 H Urine Ketones Negative Urine Blood Negative Urine Nitrite Negative Ur Leukocyte Esterase Negative Urine RBC 0-2 Urine WBC 0-5 Ur Squamous Epith Cells 0-2 Urine Bacteria None Seen Hyaline Casts 0-2 Imaging Radiologist's Impressions: Impressions Head CT 04/13/23 15:55 IMPRESSION: No acute intracranial pathology. Assessment and Plan (1) Vertigo: Status: Acute Plan This is a 62-year-old female with past medical history of diabetes, hypertension, hyperlipidemia, GERD, fibromyalgia comes into the hospital complaints of vertigo as well as headache # vertigo - likely secondary to BPPV versus migraine headache - did not respond to meclizine, Ativan, Zofran, Benadryl, - will consult Physical therapy for Dl maneuver - if does not improve, consider MRI although CVA less likely # headache - has left-sided severe headache likely secondary to migraine associated with blurred vision - no neurological deficits otherwise - will treat with Tylenol p.r.n. - consider MRI if does not improve # diabetes - low-dose sliding scale insulin - continue home insulin - diabetic diet # fibromyalgia - continue venlafaxine DVT prophylaxis: Early ambulation Time Spent With Patient Time: Total time managing care of this patient today ____ minutes. Quality Stroke Does the patient have a stroke diagnosis?: No VTE Prior VTE?: No VTE Risk Level:: Medical - low VTE Device Contraindication: Treatment Not Indicated VTE Drug Contraindication: Treatment Not Indicated
[2023-04-14] MEDS: Lactated Ringers 1,000 ML 100 ML IVCONT ×2 (01:28→11:26)
--- NOTE | 2023-04-14 03:47 | PC.NURSE ---
patient in bed with eyes closed patient have no distress at this time patient tolerated all IV fluids with no issues patient will continue to be monitored for safety
--- NOTE | 2023-04-14 05:09 | PC.NURSE ---
Patient in bed with eyes open patient showing no distress at this time patient has the family at the bedside patient will continue to be monitored for safety
[2023-04-14 07:34] LABS: Glucose, Whole Blood 304 mg/dL (60-115)
--- NOTE | 2023-04-14 08:24 | PHA.MEDREC ---
Pharmacy Consult ? Medication Reconciliation Pharmacy has completed the medication reconciliation. spoke with patient to confirm medications. She was recently prescribed Lantus and baclofen however she is no longer taking them.
--- NOTE | 2023-04-14 08:27 | PC.NURSE ---
pt is a/o x 4 no sob/herbert noted speaks in full sentences. physical therapist at bedside. pt aware of plan of care.
[2023-04-14] MEDS: Insulin Lispro 100 UNIT/ML 3 ML VIAL SUBCUT ×4 (08:35→22:38)
[2023-04-14] MEDS: 0.9 % Sodium Chloride Flush 3 ML SYRINGE IVFLUSH ×3 (08:36→22:40)
--- NOTE | 2023-04-14 10:00 | PC.NURSE ---
pt off to mri via w/c with transporter (hidwat).
--- NOTE | 2023-04-14 10:54 | PC.NURSE ---
PT RETURNED FROM MRI VIA W/C.
--- NOTE | 2023-04-14 12:06 | MHC.CM.PN ---
Attempted to meet with patient in regards to discharge planning. Patient currently sleeping. No family present. Will attempt to meet again. Continue to monitor for d/c needs.
[2023-04-14 12:21] LABS: Glucose, Whole Blood 251 mg/dL (60-115)
--- NOTE | 2023-04-14 13:17 | HO.PM.IMPN ---
Subjective Subjective Date of Service: 04/14/23 Review of Systems Follow up vertigo still with neck pain and headache intermit vertigo no nausea or vomiting oob ambulating in room Physical Exam Vital Signs: Vital Signs: Last Vital Signs Temp 98.2 F 04/14/23 11:38 Pulse 82 04/14/23 11:38 Resp 17 04/14/23 11:38 BP 139/79 04/14/23 11:38 Pulse Ox 99 04/14/23 11:38 O2 Del Method Room Air 04/14/23 11:38 BMI result Body Mass Index 27.2 Appearing in no acute distress lung sounds are clear to auscultation heart regular rate rhythm, clear S1, S2 positive bowel sounds, abdomen is soft, nontender neuro patient is alert x3, no focal deficits Objective Data Active Medications Calcium Carbonate (Calcium Carbonate 750 Mg Tab.Chew) 750 mg PO Q4H PRN PRN Reason: Heartburn Carisoprodol (Carisoprodol 350 Mg Tablet) 350 mg PO DAILY PRN PRN Reason: Muscle Spasm Cyanocobalamin (Cyanocobalamin (Vitamin B-12) 1,000 Mcg Tablet) 1,000 mcg PO DAILY [facility] Dextrose (Dextrose 50 % 25 Gm/50 Ml Syringe) 25 gm IVPUSH Q15M PRN; Protocol PRN Reason: per Hypoglycemia Standing Ord. Diazepam (Diazepam 5 Mg Tablet) 10 mg PO BID PRN PRN Reason: Muscle Spasm Docusate Sodium (Docusate Sodium 100 Mg Capsule) 100 mg PO DAILY PRN PRN Reason: Constipation Glucose (Glucose Gel 15 Gm Gel..Gram.) 15 gm PO Q15M PRN; Protocol PRN Reason: per Hypoglycemia Standing Ord. Lactated Ringer's (Lr) 1,000 mls @ 100 mls/hr IVCONT .Q10H [facility] Last Admin: 04/14/23 11:26 Dose: 100 mls/hr Documented By: THELMA Insulin Human Lispro (Insulin Lispro 100 Unit/Ml 3 Ml Vial) 0 unit SUBCUT QIDACHS [facility]; Protocol Last Admin: 04/14/23 12:22 Dose: 6 unit Documented By: MOUNA Insulin Human Lispro (Insulin Lispro 100 Unit/Ml 3 Ml Vial) 18 unit SUBCUT BID [facility] Melatonin (Melatonin 3 Mg Tablet) 9 mg PO BEDTIME PRN PRN Reason: Sleep Multivitamins/Vitamin C (Multivitamin Tablet) 1 tab PO DAILY [facility] Non-Formulary Medication (Linagliptin [Tradjenta]) 5 mg PO DAILY [facility] Ondansetron HCl (Ondansetron Hcl 4 Mg/2 Ml Vial) 4 mg IVPUSH Q8H PRN PRN Reason: Nausea and Vomiting Oxcarbazepine (Oxcarbazepine 300 Mg Tablet) 600 mg PO BEDTIME [facility] Pharmacy Consult (Consult Rx Perform Med Rec) 1 each MISCELLANE ONCE PRN PRN Reason: Consult order Sodium Chloride (0.9 % Sodium Chloride Flush 3 Ml Syringe) 3 ml IVFLUSH QSHIFT [facility] Last Admin: 04/14/23 08:36 Dose: 3 ml Documented By: SCOC Vitamin D (Cholecalciferol (Vitamin D3) 25 Mcg Tablet) 25 mcg PO DAILY [facility] Labs 04/13/23 16:41 04/13/23 16:41 Labs: Laboratory Results - last 24 hr 04/13/23 04/13/23 04/13/23 16:41 16:41 16:41 MCV 88.1 MCH 29.4 MCHC 33.3 RDW 12.5 Plt Count 173 MPV 11.7 Immature Gran % (Auto) 0.2 Neut % (Auto) 44.4 L Lymph % (Auto) 45.6 H [place] % (Auto) 7.4 Eos % (Auto) 2.1 Baso % (Auto) 0.3 Lymph # (Auto) 2.9 [place] # (Auto) 0.5 Eos # (Auto) 0.1 Baso # (Auto) 0.0 Abs Immat Gran (auto) 0.01 Absolute Neuts (auto) 2.8 Absolute Nucleated RBC 0.000 Nucleated RBC % (auto) 0.0 PT 12.5 INR 1.0 APTT 29.4 Anion Gap 11 L Estim Creat Clear Calc 63.5 Estimated GFR > 60 POC Glucose Random Glucose 247 H Calcium 10.2 D Magnesium 1.9 Total Bilirubin 0.9 AST 31 ALT 27 Alkaline Phosphatase 104 Total Protein 7.3 Albumin 4.0 Lipase 61 Beta-Hydroxybutyrate 0.09 Urine Color Urine Appearance Urine pH Ur Specific [place] Urine Protein Urine Glucose (UA) Urine Ketones Urine Blood Urine Nitrite Ur Leukocyte Esterase Urine RBC Urine WBC Ur Squamous Epith Cells Urine Bacteria Hyaline Casts 04/13/23 04/13/23 04/14/23 17:46 20:37 07:30 MCV MCH MCHC RDW Plt Count MPV Immature Gran % (Auto) Neut % (Auto) Lymph % (Auto) [place] % (Auto) Eos % (Auto) Baso % (Auto) Lymph # (Auto) [place] # (Auto) Eos # (Auto) Baso # (Auto) Abs Immat Gran (auto) Absolute Neuts (auto) Absolute Nucleated RBC Nucleated RBC % (auto) PT INR APTT Anion Gap Estim Creat Clear Calc Estimated GFR POC Glucose 303 H 304 H Random Glucose Calcium Magnesium Total Bilirubin AST ALT Alkaline Phosphatase Total Protein Albumin Lipase Beta-Hydroxybutyrate Urine Color Yellow Urine Appearance Clear Urine pH 8.0 Ur Specific [place] 1.015 Urine Protein Negative Urine Glucose (UA) >=1000 H Urine Ketones Negative Urine Blood Negative Urine Nitrite Negative Ur Leukocyte Esterase Negative Urine RBC 0-2 Urine WBC 0-5 Ur Squamous Epith Cells 0-2 Urine Bacteria None Seen Hyaline Casts 0-2 04/14/23 12:17 MCV MCH MCHC RDW Plt Count MPV Immature Gran % (Auto) Neut % (Auto) Lymph % (Auto) [place] % (Auto) Eos % (Auto) Baso % (Auto) Lymph # (Auto) [place] # (Auto) Eos # (Auto) Baso # (Auto) Abs Immat Gran (auto) Absolute Neuts (auto) Absolute Nucleated RBC Nucleated RBC % (auto) PT INR APTT Anion Gap Estim Creat Clear Calc Estimated GFR POC Glucose 251 H Random Glucose Calcium Magnesium Total Bilirubin AST ALT Alkaline Phosphatase Total Protein Albumin Lipase Beta-Hydroxybutyrate Urine Color Urine Appearance Urine pH Ur Specific [place] Urine Protein Urine Glucose (UA) Urine Ketones Urine Blood Urine Nitrite Ur Leukocyte Esterase Urine RBC Urine WBC Ur Squamous Epith Cells Urine Bacteria Hyaline Casts Assessment and Plan (1) Vertigo: Status: Acute Plan This is a 62-year-old female with past medical history of diabetes, hypertension, hyperlipidemia, GERD, fibromyalgia comes into the hospital complaints of vertigo as well as headache Vertigo likely secondary to BPPV versus migraine headache Physical therapy consult check orthostatics every shift MRI negative for acute or chronic abnormalities Headache and neck pain radiating from neck pain, hx of neck surgery, taken off of soma recently no neurological deficits otherwise will treat with Tylenol p.r.n, soma TID, lidocaine patch normal Brain MRI DM2 with hyperglycemia sliding scale insulin, home BID insulin mealtime insulin added diabetic diet fibromyalgia continue venlafaxine DVT prophylaxis:? Early ambulation attending Dr. Macdonald Time Spent With Patient Time: Total time managing care of this patient today ____ minutes. Quality Stroke Does the patient have a stroke diagnosis?: No VTE Prior VTE?: No VTE Risk Level:: Medical - low VTE Device Contraindication: Treatment Not Indicated VTE Drug Contraindication: Treatment Not Indicated
[2023-04-14] MEDS: carisoprodoL 350 MG TABLET PO ×2 (14:14→22:39)
[2023-04-14] MEDS: Lidocaine 4 % Patch ADH..PATCH 1 PATCH TRANSDERMA (14:22)
[2023-04-14 15:59] LABS: Glucose, Whole Blood 328 mg/dL (60-115)
[2023-04-14] MEDS: Docusate Sodium 100 MG CAPSULE PO (17:36)
[2023-04-14] MEDS: Calcium Carbonate 750 MG TAB.CHEW PO (17:41)
[2023-04-14 21:28] LABS: Glucose, Whole Blood 387 mg/dL (60-115)
[2023-04-14] MEDS: polyethylene glycoL 3350 17 GM POWD.PACK PO (22:38)
[2023-04-14] MEDS: Melatonin 3 MG TABLET 9 MG PO (22:38)
[2023-04-14] MEDS: OXcarbazepine 300 MG TABLET 600 MG PO (22:39)
[2023-04-14 23:47] LABS: PLT CLUMP 1; SCAN SMEAR FLAG 1
[2023-04-14 23:49] LABS: Basophils Percent Auto 0.2 % (0-2); Eosinophils Absolute Auto 0.1 X10*3/uL (0.0-0.4); Eosinophils Percent Auto 2.5 % (0-4); Hematocrit 37.5 % (37.0-47.0); Hemoglobin 12.7 g/dl (12.0-16.0); Imm Gran Abs Auto 0.02 X10*3/uL (0.00-0.03); Imm Gran Pct Auto 0.4 % (0.0-0.4); Lymphocytes Absolute Auto 2.2 X10*3/uL (1.2-4.9); Lymphocytes Percent Auto 47.1 % (20-40); Mean Corpuscular HGB Conc 33.9 g/dl (31.0-35.0); Mean Corpuscular Hemoglobin 29.6 pg (27.0-33.0); Mean Corpuscular Volume 87.4 fL (80.0-98.0); Mean Platelet Volume 11.8 fL (9.4-12.3); Monocytes Absolute Auto 0.4 X10*3/uL (0.1-1.2); Monocytes Percent Auto 8.2 % (2-11); Neutrophils Percent Auto 41.6 % (45-73); Red Blood Count 4.29 X10*6/uL (4.20-5.50); Red Cell Distribution Width 12.3 % (11.0-16.0)
[2023-04-14 23:54] LABS: Platelet Count 126 X10*3/uL (160-400); White Blood Count 4.7 X10*3/uL (4.8-10.8)
[2023-04-14 23:55] LABS: MANUAL DIFF FLAG NO
[2023-04-15] MEDS: diphenhydrAMINE HCL 25 MG CAPSULE PO (00:47)
--- NOTE | 2023-04-15 01:31 | PC.NURSE ---
Patient c/o itchiness to chest mid-shift, pt attributing to tele stickers. Mild redness noted, no raised areas. Benadryl given per MD with minimal effect per pt report. Pt requesting to remove tele monitor. Dr. Gregory notified and written okay given to D/C tele monitor.
[2023-04-15 03:35] VITALS: BP 121/65; PULSE 63; RESP 14; TEMP 36.1; O2SAT 100
--- NOTE | 2023-04-15 06:05 | PC.NURSE ---
Patient low to moderate falls risk. Orthostatics obtained once this shift per written MD order; see vitals for details. Patient has consistently denied dizziness this shift. Non-compliant with bed alarm/refused. Pt educated on safety measures, including calling nursing staff before getting OOB. Bedside table frequently moved near bed for patient ease of access, though patient observed pushing it back away/out of reach. In-room camera in place for patient safety. Frequent purposeful rounding.
[2023-04-15 07:35] VITALS: BP 120/71; PULSE 82; RESP 18; TEMP 36.2; O2SAT 98
[2023-04-15 07:53] LABS: Glucose, Whole Blood 243 mg/dL (60-115)
[2023-04-15 08:00] VITALS: BP 124/79; PULSE 74
[2023-04-15] MEDS: Insulin Lispro 100 UNIT/ML 3 ML VIAL SUBCUT ×2 (08:03→11:54)
[2023-04-15] MEDS: 0.9 % Sodium Chloride Flush 3 ML SYRINGE IVFLUSH (08:04)
[2023-04-15] MEDS: Multivitamin TABLET 1 TAB PO (08:05)
[2023-04-15] MEDS: Cyanocobalamin (Vitamin B-12) 1,000 MCG TABLET 1000 MCG PO (08:05)
[2023-04-15] MEDS: carisoprodoL 350 MG TABLET PO (08:05)
[2023-04-15] MEDS: Cholecalciferol (Vitamin D3) 25 MCG TABLET PO (08:05)
[2023-04-15] MEDS: Lidocaine 4 % Patch ADH..PATCH 1 PATCH TRANSDERMA (08:06)
[2023-04-15] MEDS: Sennosides 8.6 MG TABLET PO (08:54)
[2023-04-15 09:02] VITALS: BP 122/77; PULSE 79
[2023-04-15 09:03] VITALS: BP 124/73; PULSE 83
--- NOTE | 2023-04-15 09:49 | MHC.CM.PN ---
JOHN 04/15. Pt on observation with vertigo. Pt lives at home and has family with her around the clock. Pt uses a walker and has a shower chair. D/C plan to return home with family support vs with new VNA. Pts family to transport. Pt states her daughter is HCP, copy requested. PCP: An Gregg vax: x 2 rd
--- NOTE | 2023-04-15 11:01 | P.DS_ITS ---
DS: Providers Provider Date of Service: 04/15/23 Date of admission: 04/14/23 01:09 Date of discharge: 04/15/23 Primary care physician: An Aguilar MD Attending physician on discharge: Shmuel Macdonald Discharging clinician: Chani Pool DS: Diagnosis Discharge Diagnosis (1) Basilar migraine: Status: Acute DS: Summary Hospital Course Hospital Course: From H&P on the day of admission This is a 62-year-old female past medical history of migraine headaches, diabetes, fibromyalgia, HTN, hyperlipidemia, polyarthralgia, GERD, chronic pancreatitis, history of TIA, comes into the hospital with complaints of vertigo, as well as severe headache and abdominal pain.? Patient reports that her symptoms started 2 days prior, she has significant vertigo when getting up from a seated position or when she is laying down, walking also makes it difficult she feels like she is about to fall as a result of the vertigo, she reports significant left-sided headache, she states that she has blurred vision, denies any chest pain, but has diffuse abdominal pain associated with diarrhea that has now resolved, denies any fever, no chills, reports no nausea or vomiting, no urinary symptoms and no lower extremity edema Denies any recent ear infection but reports that she was recently treated for orbital cellulitis and was on oral antibiotics which she completed about a week ago. On arrival to the ED patient hemodynamically stable with no significant abnormal vitals Labs are reviewed and are unremarkable with no significant abnormality, UA negative, head CT shows no acute intracranial pathology Orthostatic vitals negative But patient is adamant that she cannot go home and does not feel safe going home with this type of headache. Patient will be admitted for further evaluation for headache/dizziness patient was seen in consultation by Neurology who felt that her symptoms were secondary to basilar migraine. She underwent MRI which showed no evidence of acute stroke. She was was evaluated by Physical therapy and Jaida-Hallpike test was negative and without nystagmus. She was able to ambulate independently. Her symptoms have improved and she will be discharged home. Neurology recommended to start topiramate 25 mg twice daily for management of migraine and outpatient follow-up with Neurology. Time Spent with Patient Time attestation: Total time managing care of this patient today ____ minutes. Discharge coordination time: Greater than 30 minutes Quality: Safe Use of Opioids Does Pt have an Active Cancer Diagnosis on the Problem List?: No Quality: Stroke Does the patient have a stroke diagnosis?: No Physical Exam Vital Signs: Vital Signs: Last Vital Signs Temp 97.2 F 04/15/23 07:35 Pulse 83 04/15/23 09:03 Resp 18 04/15/23 07:35 BP 124/73 04/15/23 09:03 Pulse Ox 98 04/15/23 07:35 O2 Del Method Room Air 04/15/23 07:35 BMI result Body Mass Index 27.2 Const: General: cooperative, comfortable, alert and awake Nutritional Appearance: average body habitus Orientation/consciousness: patient oriented x3 Resp: Effort & Inspection: normal respiratory effort and able to speak in complete sentences Cardio: Rate: regular rate Heart sounds: S1 normal heart sound present and S2 normal heart sound present Neuro: General: patient oriented x3 and moves all extremities Extrem: General: Yes no pedal edema DS: Data Data Completed and Pending Labs on day of discharge: Laboratory Results - last 24 hr 04/14/23 04/14/23 04/14/23 12:17 15:55 21:22 WBC RBC Hgb Hct MCV MCH MCHC RDW Plt Count MPV Immature Gran % (Auto) Neut % (Auto) Lymph % (Auto) [place] % (Auto) Eos % (Auto) Baso % (Auto) Lymph # (Auto) [place] # (Auto) Eos # (Auto) Baso # (Auto) Abs Immat Gran (auto) Absolute Neuts (auto) Absolute Nucleated RBC Nucleated RBC % (auto) POC Glucose 251 H 328 H 387 H* 04/14/23 04/15/23 23:38 07:34 WBC 4.7 L RBC 4.29 Hgb 12.7 Hct 37.5 MCV 87.4 MCH 29.6 MCHC 33.9 RDW 12.3 Plt Count 126 L D MPV 11.8 Immature Gran % (Auto) 0.4 Neut % (Auto) 41.6 L Lymph % (Auto) 47.1 H [place] % (Auto) 8.2 Eos % (Auto) 2.5 Baso % (Auto) 0.2 Lymph # (Auto) 2.2 [place] # (Auto) 0.4 Eos # (Auto) 0.1 Baso # (Auto) 0.0 Abs Immat Gran (auto) 0.02 Absolute Neuts (auto) 2.0 Absolute Nucleated RBC 0.000 Nucleated RBC % (auto) 0.0 POC Glucose 243 H Discharge Plan Discharge Anticipated Discharge Date/Time: 04/15/23 10:54 Patient Disposition: Home, Self-Care Discharge Diagnosis: migraine Referrals: Matt Moore MD [Physician] - 1 Week An Gregory MD [Primary Care Provider] - 1 Week Discharge Medications: New topiramate 25 mg tablet 25 mg PO BID 30 Days Qty: 60 0RF Continued cholecalciferol (vitamin D3) 25 mcg (1,000 unit) capsule 25 mcg PO DAILY 90 Days Qty: 90 1RF ibuprofen 600 mg tablet 600 mg PO TID PRN (Reason: pain) 90 Days Qty: 270 3RF albuterol sulfate 90 mcg/actuation HFA aerosol inhaler 1 - 2 puff inhalation Q4-6H PRN (Reason: for dyspnea) Qty: 8.5 2RF cyanocobalamin (vitamin B-12) 1,000 mcg Tablet 1,000 mcg PO DAILY vitamin B complex Tablet 1 tab PO DAILY alpha lipoic acid 600 mg Capsule 600 mg PO BIDAC oxcarbazepine 600 mg tablet 600 mg PO BEDTIME melatonin 10 mg tablet 10 mg PO BEDTIME PRN (Reason: Sleep) diazepam 10 mg tablet 10 mg PO BID PRN (Reason: Muscle Spasm) Tradjenta 5 mg tablet 5 mg PO DAILY carisoprodol 350 mg tablet 350 mg PO DAILY PRN (Reason: Muscle Spasm) 30 Days Qty: 30 0RF Humalog KwikPen Insulin 200 unit/mL (3 mL) insulin pen 18 unit subcut BID 90 Days Qty: 16.2 3RF No Action (DME) blood-glucose meter Kit See Rx Instructions .ROUTE .MEDSUPPLY Qty: 1 0RF Rx Instructions: As directed (DME) Assure ID Pen Needle 30 gauge x 5/16 needle See Rx Instructions .ROUTE .MEDSUPPLY Qty: 100 6RF Rx Instructions: Use 1 pen needle once a day (DME) blood-glucose meter [FreeStyle Lite Meter] Kit See Rx Instructions .Route Qty: 1 0RF Rx Instructions: test 3 times per day (DME) blood pressure monitor Kit See Rx Instructions .ROUTE .MEDSUPPLY Qty: 1 0RF Rx Instructions: As directed metformin 1,000 mg tablet 1,000 mg PO BID Qty: 180 1RF (DME) pen needle, diabetic 31 gauge x 3/16 needle See Rx Instructions topical QID Qty: 50 Rx Instructions: As directed (DME) pen needle, diabetic [Advocate Pen Needle] 31 gauge x 5/16 needle See Rx Instructions .Route Qty: 100 3RF Rx Instructions: Use 1 pen needle once a day Discharge Orders: Discharge Order (Routine); Ordered 04/15/23 Ordered By: Chani Pool Activity on Discharge: As tolerated Stand Alone Forms: Patient Portal Discharge page Care Plan Goals: see below Health Concerns: basilar migraine Plan of Treatment: neurologist recommended topiramate 25 mg twice daily for control of migraines Call to schedule follow-up appointment with Neurology Assessment: see discharge summary Discharge Date/Time: 04/15/23 13:00
[2023-04-15 11:30] LABS: Glucose, Whole Blood 209 mg/dL (60-115)
--- NOTE | 2023-04-15 15:45 | MHC.CM.PN ---
EMR reviewed and per MD rounds, pt medically cleared for D/C home with family support. Pts family to transport.
== END 2023-04-15 13:00 | disposition home or self-care (01) ==
LOC: HO.ED 21:08 → HO.EDOVER 04-14 01:14 → HO.IMC 04-14 11:48
PROVIDERS: Nurse Practitioner Acute Care; Physician Assistant; Admitting Provider Internal Medicine; Emergency Provider Emergency Medicine Emergency Medical Services; PCP Internal Medicine; Visit Provider Physician Assistant Medical
DX: G43.909 Migraine, unspecified, not intractable, without status migrainosus (principal); R42 Dizziness and giddiness; E11.9 Type 2 diabetes mellitus without complications; I10 Essential (primary) hypertension; M79.7 Fibromyalgia; E78.5 Hyperlipidemia, unspecified; H53.8 Other visual disturbances; Z79.899 Other long term (current) drug therapy
CPT/HCPCS: 36415; 70450; 70551; 80053; 81001; 82010; 82947; 83690; 83735; 84484; 85025; 85610; 85730; 93005; 96361; 96372; 96374; 96375; 97161; 99222; 99285; J1200; J2060

== ENCOUNTER → 2023-04-13 15:47 | Outpatient (BNV) | payer OTHER, SELFPAY | PROVIDERS: Admitting Provider Internal Medicine; Emergency Provider Emergency Medicine Emergency Medical Services; PCP Internal Medicine; Visit Provider Internal Medicine Cardiovascular Disease | DX: R52 Pain, unspecified (principal) | CPT/HCPCS: 93010 ==

== ENCOUNTER → 2023-04-14 01:09 | Outpatient (BNV) | payer OTHER, SELFPAY | PROVIDERS: Admitting Provider Internal Medicine; Emergency Provider Emergency Medicine Emergency Medical Services; PCP Internal Medicine; Visit Provider Internal Medicine | DX: G43.109 Migraine with aura, not intractable, without status migrainosus (principal) | CPT/HCPCS: 99222; 99239; 99499 ==

== ENCOUNTER 2023-04-29 14:07 | Outpatient (AMB) | payer OTHER, SELFPAY ==
--- NOTE | 2023-04-29 14:21 | MHC.PC.OV ---
Vital Signs 04/29/23 14:22 04/30/23 09:38 Height 4 ft 10.5 in Weight 138 lb 6 oz BMI 28.4 BP 144/90 H 140/90 H Blood Pressure Location Lt brachial Lt brachial Position Sitting Sitting Respiration 16 Pulse 90 Pulse Source Pulse Oximeter Pulse Oximetry (%) 98 Oxygen Delivery Method Room Air Intake Visit Reasons: experiencing pain in eyes Intake Note: Pt has been experiencing blurred vission/vertigo. Protective Signal Operations Supervisor Required: No Accompanied by: Self / Same As Patient Allergies nickel Allergy (Severe, Verified 04/29/23 14:36) Rash acetaminophen [Percocet] Allergy (Intermediate, Verified 04/29/23 14:36) vomiting cyclobenzaprine [CYCLOBENZAPRINE] Allergy (Intermediate, Verified 04/29/23 14:36) HEADACHE,DIZZINESS divalproex sodium [Depakote] Allergy (Intermediate, Verified 04/29/23 14:36) increase liver enzymes methocarbamol [METHOCARBAMOL] Allergy (Intermediate, Verified 04/29/23 14:36) TICS oxycodone [From PERCOCET] Allergy (Intermediate, Verified 04/29/23 14:36) VOMITING liraglutide [From Victoza] Adverse Reaction (Severe, Verified 04/29/23 14:36) hypoglycemia lisinopril Adverse Reaction (Severe, Verified 04/29/23 14:36) Dizziness risperidone [RISPERIDONE] Adverse Reaction (Severe, Verified 04/29/23 14:36) CHEST PAIN baclofen Adverse Reaction (Intermediate, Verified 04/29/23 14:43) Palpitations canagliflozin [Invokana] Adverse Reaction (Intermediate, Verified 04/29/23 14:36) confusion dulaglutide [Trulicity] Adverse Reaction (Intermediate, Verified 04/29/23 14:36) abdominal bloating, numbness, myalgia Narcotics Allergy (Mild, Uncoded 04/29/23 14:36) dizzy, sick Medication List - Last Reconciled 04/29/23 by An Aguilar MD albuterol sulfate 90 mcg/actuation 1 - 2 puffs inhalation Q4-6H PRN alpha lipoic acid 600 mg PO BIDAC blood pressure monitor As directed blood-glucose meter As directed blood-glucose meter (FreeStyle Lite Meter kit) test 3 times per day carisoprodol 350 mg PO DAILY PRN 30 days cholecalciferol (vitamin D3) 25 mcg PO DAILY 90 days cyanocobalamin (vitamin B-12) 1,000 mcg PO DAILY diazepam 10 mg PO BID PRN ibuprofen 600 mg PO TID PRN 90 days insulin lispro (Humalog KwikPen U-200 Insulin) 18 units (0.09 mL) subcut BID 90 days linagliptin (Tradjenta) 5 mg PO DAILY melatonin 10 mg PO BEDTIME PRN melatonin-pyridoxine HCl (B6) 10-10 mg ER 1 tab PO BEDTIME PRN metformin 1,000 mg PO BID oxcarbazepine 600 mg PO BEDTIME pen needle, diabetic As directed pen needle, diabetic (Advocate Pen Needle) Use 1 pen needle once a day pen needle, diabetic, safety (Assure ID Pen Needle) Use 1 pen needle once a day topiramate 25 mg PO BID 30 days vitamin B complex 1 tab PO DAILY Tobacco use date assessed: 10/01/22 Dental Screening Dental Screen Date: 04/29/23 Did you have a dental visit in the last 12 months?: No Did you have a dental problem in the last 6 months where you did not have access to dental care?: No Was dental information given to patient?: Patient has dentist HPI HPI Comments History of Present Illness Details This is a 62-year-old female with diabetes mellitus type 2 on long-term current use of insulin, bipolar disorder, chronic neck pain and muscle spasm that comes today complaining of vertigo that started recently. She said she was recently hospitalized in [place] for 31 days due to eye infection and vertigo receiving IV antibiotics. Feels markedly improved but still has vertigo and I will refer her to with tubular therapy. Last A1c was elevated and I will increase insulin. Bipolar disorder stable with ox carbamazepine and this is follow by Behavioral Health. She has try baclofen, methocarbamol, cyclobenzaprine and tizanidine for her chronic neck pain and either has had side effects or inadequate response. She used to be on Soma for many years with no side effects and markedly improving her neck spasm. Insurance does not want approved again. Letter of medical necessity was done. [facility] Medical History (Updated 04/30/23 @ 09:47 by An Aguilar MD) Basilar migraine Chest pain Chronic neck pain Diabetes mellitus Fibromyalgia Herpes simplex virus (HSV) infection Hypertension Intertrigo Migraine with aura Mixed hyperlipidemia Nickel allergy Nickel dermatitis Polyarthralgia Renal calculi Shortness of breath Surgical History History of section History of colonoscopy History of discectomy History of laparoscopic cholecystectomy History of laparoscopy History of prior ablation treatment History of tubal ligation Family History Father Prostate cancer Diabetes High cholesterol HTN (hypertension) Mother Liver problem Diabetes High cholesterol HTN (hypertension) Family/Other Diabetes High cholesterol HTN (hypertension) Cancer Social History Household Members: Children Household Members Other:: Son Housing: Apartment Alcohol intake: never Patient Tobacco Use Status: Former Tobacco user Tobacco use type: Cigarette Years Smoked: 18 e-Cigarette/Vaping Use: Never Used Second Hand Smoke Exposure: No service: No Current occupational status: disabled Sexual orientation: Straight/Heterosexual Gender identity: Female Cognitive needs: No Hearing needs: No Vision needs: No Questionnaire Thrive Questionnaire Date Thrive assessed: 04/15/23 ABBY-7 AMB Questionnaire ABBY-7 Date ABBY - 7 assessed: 10/01/22 Source: Developed by Drs. Frank Kay, Drea Griggs, Diego Corcoran and colleagues, with an educational javier from [employer]. Review of Systems Const All systems reviewed & are unremarkable except as noted in HPI and below Eyes Reports no additional complaints, Denies change in vision and Denies other visual disturbances Card Denies chest pain at rest, Denies chest pain with activity, Denies edema, Denies irregular heart rhythm, Denies claudication, Denies dyspnea, Denies dyspnea on exertion, Denies orthopnea, Denies paroxysmal nocturnal dyspnea and Denies slow heart rate Resp Denies cough, Denies dyspnea and Denies dyspnea on exertion GI Denies abdominal pain, Denies change in bowel habits, Denies excessive flatus, Denies nausea and Denies vomiting Denies urinary incontinence, Denies urinary hesitancy and Denies urinary urgency Musc Denies abnormal gait, Denies atrophy, Denies deformity and Denies limited range of motion Skin/Breast Denies bleeding lesions, Denies changing lesions and Denies rash Neuro Denies abnormal gait and Denies lack of coordination Physical exam (Primary Care) Vital Signs: Last Vital Signs Pulse 90 04/29/23 14:22 Resp 16 04/29/23 14:22 BP 144/90 H 04/29/23 14:22 Pulse Ox 98 04/29/23 14:22 Oxygen Delivery Method Room Air 04/29/23 14:22 BMI result Body Mass Index 28.4 Tobacco/Smoking Status: Tobacco use Status Tobacco use date assessed 10/01/22 04/29/23 14:31 Patient Tobacco Use Status Former Tobacco user 04/29/23 14:31 Tobacco use type Cigarette 04/29/23 14:31 e-Cigarette/Vaping Use Never Used 04/29/23 14:31 Thrive Assessment: Date of Thrive Assessment Date Thrive assessed 04/15/23 04/29/23 14:31 Eyes General: appearance normal, both eyes and all related structures Eyelids: Yes eyelids normal Conjunctivae: conjunctivae normal Neck Neck: Yes normal visual inspection and Yes supple Resp Effort & Inspection: normal respiratory effort Auscultation: clear to auscultation bilaterally Cardio Jugular venous distension: no JVD Rate: regular rate Rhythm: regular rhythm Heart sounds: S1 normal heart sound present and S2 normal heart sound present Extrem General: Yes full ROM Assessment and Plan Assessment & Plan (1) Diabetes mellitus: Code(s): E11.9 - Type 2 diabetes mellitus without complications Qualifiers: Diabetes mellitus type: type 2 Diabetes mellitus usp insulin use: with usp use Diabetes mellitus complication status: with hyperglycemia Qualified Code(s): E11.65 - Type 2 diabetes mellitus with hyperglycemia; Z79.4 - MCC (current) use of insulin Plan: Increase insulin. Continue metformin, glipizide and Tradjenta. A1c goal is equal or less than 7%. (2) Neck muscle spasm: Code(s): M62.838 - Other muscle spasm Plan: Restart Soma. (3) Bipolar disorder: Code(s): F31.9 - Bipolar disorder, unspecified Plan: Continue oxcarbamazepine. (4) Vertigo: Code(s): R42 - Dizziness and giddiness Plan: Start vestibular therapy. Orders: Orders PT Evaluation and Treatment 04/29/23 R42 - Dizziness and giddiness Comprehensive [place]. Panel Fast 04/29/23 E78.5 - Hyperlipidemia, unspecified IRON PROFILE 04/29/23 D64.9 - Anemia, unspecified Lipid Panel 04/29/23 E78.5 - Hyperlipidemia, unspecified Vitamin D 25-OH Total 04/29/23 E55.9 - Vitamin D deficiency, unspecified Complete Blood Count Auto Diff 04/29/23 D64.9 - Anemia, unspecified Medications: Changed From insulin lispro (Humalog KwikPen U-200 Insulin) 18 units (0.09 mL) subcut BID 90 days 16.2 mL 3RF E11.65 - Type 2 diabetes mellitus with hyperglycemia, Z79.4 - terminal operator (current) use of insulin To insulin lispro (Humalog KwikPen U-200 Insulin) 20 units (0.1 mL) subcut BID 90 days 18 mL 3RF E11.65 - Type 2 diabetes mellitus with hyperglycemia, Z79.4 - MCC (current) use of insulin Coding Level of Care Code Est Pt Level 4 (70086) Diagnoses Diabetes mellitus E11.65; Z79.4 Diabetes mellitus type: type 2 Diabetes mellitus usp insulin use: with termite control servicer use Diabetes mellitus complication status: with hyperglycemia Neck muscle spasm M62.838 Bipolar disorder F31.9 Vertigo R42 Time Spent (min) 24
[2023-04-29 14:22] VITALS: BP 144/90; PULSE 90; RESP 16; O2SAT 98; BMI 28.4
[2023-04-30 09:38] VITALS: BP 140/90
== END 2023-04-29 15:00 | disposition home or self-care (01) ==
LOC: HO.HMGH 14:07
PROVIDERS: PCP Internal Medicine; Visit Provider Internal Medicine
DX: E11.65 Type 2 diabetes mellitus with hyperglycemia (principal); Z79.4 Long term (current) use of insulin; M62.838 Other muscle spasm; F31.9 Bipolar disorder, unspecified; R42 Dizziness and giddiness
CPT/HCPCS: 99214

== ENCOUNTER 2023-05-05 11:17 | Outpatient (REF) | payer OTHER, SELFPAY ==
[2023-05-05 14:27] LABS: Basophils Percent Auto 0.7 % (0-2); Eosinophils Absolute Auto 0.1 X10*3/uL (0.0-0.4); Hematocrit 45.1 % (37.0-47.0); Hemoglobin 15.1 g/dl (12.0-16.0); Imm Gran Abs Auto 0.03 X10*3/uL (0.00-0.03); Imm Gran Pct Auto 0.5 % (0.0-0.4); Lymphocytes Absolute Auto 2.5 X10*3/uL (1.2-4.9); Lymphocytes Percent Auto 41.4 % (20-40); MANUAL DIFF FLAG SCAN; Mean Corpuscular HGB Conc 33.5 g/dl (31.0-35.0); Mean Corpuscular Hemoglobin 30.4 pg (27.0-33.0); Mean Corpuscular Volume 90.7 fL (80.0-98.0); Mean Platelet Volume 11.7 fL (9.4-12.3); Monocytes Absolute Auto 0.4 X10*3/uL (0.1-1.2); Monocytes Percent Auto 6.6 % (2-11); Neutrophils Percent Auto 48.8 % (45-73); PLT CLUMP 1; Red Blood Count 4.97 X10*6/uL (4.20-5.50); Red Cell Distribution Width 12.8 % (11.0-16.0); SCAN SMEAR FLAG 1
[2023-05-05 15:05] LABS: Alanine Aminotransferase 33 U/L (0-31); Alkaline Phosphatase 160 U/L (39-117); Anion Gap 12 (12-20); Aspartate Amino Transferase 31 U/L (5-31); Bilirubin Total 0.7 mg/dL (0.0-1.0); Blood Urea Nitrogen 6 mg/dL (9-16); Calcium 9.4 mg/dL (8.4-10.2); Carbon Dioxide 26 mmol/L (22-29); Chloride 101 mmol/L (96-108); Cholesterol 223 mg/dL; Estimated Glomerular Filt Rate > 60; Glucose Fasting 326 mg/dL (60-99); HDL Cholesterol 41 mg/dL; Iron 76 mcg/dL (30-160); LDL Cholesterol Calculated 110 mg/dl; Percent Iron Saturation 24 % (15-50); Potassium 4.3 mmol/L (3.3-5.1); Sodium 135 mmol/L (135-145); Total Iron Binding Capacity 316 mcg/dL (228-428); Total Protein 7.8 g/dL (6.5-8.0); Triglycerides 363 mg/dL; Unsaturated Iron Binding 240 ug/dL
[2023-05-05 15:07] LABS: Vitamin D 25-OH Total 32.4 ng/mL (>30)
[2023-05-05 15:44] LABS: White Blood Count 6.1 X10*3/uL (4.8-10.8)
[2023-05-05 15:45] LABS: Platelet Count 155 X10*3/uL (160-400)
[2023-05-05 15:46] LABS: SLIDE REVIEW VERIFIED
[2023-05-06 09:12] LABS: CT PCR NOT DETECTED (Not Detect.); NG PCR NOT DETECTED (Not Detect.)
[2023-05-06 10:42] LABS: BV Int Neg Control Negative (Negative); BV Int Pos Control Positive (Positive)
== END 2023-05-05 11:18 | disposition home or self-care (01) ==
LOC: HO.LAB 11:17
PROVIDERS: Advanced Practice Midwife; PCP Internal Medicine; Visit Provider Internal Medicine
DX: N94.9 Unspecified condition associated with female genital organs and menstrual cycle (principal); N89.8 Other specified noninflammatory disorders of vagina; E55.9 Vitamin D deficiency, unspecified; E78.5 Hyperlipidemia, unspecified; D64.9 Anemia, unspecified; Z32.02 Encounter for pregnancy test, result negative
CPT/HCPCS: 0353U; 36415; 80053; 80061; 81025; 82306; 83540; 85025; 87480; 87510; 87660; 99212

== ENCOUNTER 2023-05-05 11:41 | Outpatient (AMB) | payer OTHER, SELFPAY ==
--- NOTE | 2023-05-05 13:17 | MHC.OFFVIS ---
Intake Vital Signs 05/05/23 13:19 Height 4 ft 10.5 in Weight 140 lb BMI 28.8 BP 120/80 Intake Visit Reasons: rash follow up Intake Note: pt c/o vaginal rash, itching. patient requesting test has miracle babies The patient agreed to use of a durable medical equipment technician during this encounter. Scribed for INA Lao by Pamela Ocampo durable medical equipment technician, on 05/05/2023 at 1:46 pm EST. Intellectual Property Legal Assistant: Intellectual Property Legal Assistant Present (Rosio) Allergies nickel Allergy (Severe, Verified 05/05/23 13:20) Rash acetaminophen [Percocet] Allergy (Intermediate, Verified 05/05/23 13:20) vomiting cyclobenzaprine [CYCLOBENZAPRINE] Allergy (Intermediate, Verified 05/05/23 13:20) HEADACHE,DIZZINESS divalproex sodium [Depakote] Allergy (Intermediate, Verified 05/05/23 13:20) increase liver enzymes methocarbamol [METHOCARBAMOL] Allergy (Intermediate, Verified 05/05/23 13:20) TICS oxycodone [From PERCOCET] Allergy (Intermediate, Verified 05/05/23 13:20) VOMITING liraglutide [From Victoza] Adverse Reaction (Severe, Verified 05/05/23 13:20) hypoglycemia lisinopril Adverse Reaction (Severe, Verified 05/05/23 13:20) Dizziness risperidone [RISPERIDONE] Adverse Reaction (Severe, Verified 05/05/23 13:20) CHEST PAIN baclofen Adverse Reaction (Intermediate, Verified 05/05/23 13:20) Palpitations canagliflozin [Invokana] Adverse Reaction (Intermediate, Verified 05/05/23 13:20) confusion dulaglutide [Trulicity] Adverse Reaction (Intermediate, Verified 05/05/23 13:20) abdominal bloating, numbness, myalgia Narcotics Allergy (Mild, Uncoded 04/29/23 14:36) dizzy, sick HPI HPI Comments History of Present Illness Details She is here with complaints of vaginal itching and burning. Denies any new soaps, detergents or antibiotics. Currently sexual active with new partner/ fiance. Reports she is fasting and on a healthy diet to help with blood sugars and overall health, along with a home remedy of Tumeric/shakila/honey... She requests a test today due to her past unplanned following a tubal ligation at age 51. Experiencing breast tenderness. [facility] Medical History Basilar migraine Chest pain Chronic neck pain Diabetes mellitus Fibromyalgia Herpes simplex virus (HSV) infection Hypertension Intertrigo Migraine with aura Mixed hyperlipidemia Nickel allergy Nickel dermatitis Polyarthralgia Renal calculi Shortness of breath Vaginal burning Vaginal itching Surgical History History of section History of colonoscopy History of discectomy History of laparoscopic cholecystectomy History of laparoscopy History of prior ablation treatment History of tubal ligation Family History Father Prostate cancer Diabetes High cholesterol HTN (hypertension) Mother Liver problem Diabetes High cholesterol HTN (hypertension) Family/Other Diabetes High cholesterol HTN (hypertension) Cancer Social History Household Members: Children Household Members Other:: Son Housing: Apartment Alcohol intake: never Patient Tobacco Use Status: Former Tobacco user Tobacco use type: Cigarette Years Smoked: 18 e-Cigarette/Vaping Use: Never Used Second Hand Smoke Exposure: No service: No Current occupational status: disabled Sexual orientation: Straight/Heterosexual Gender identity: Female Cognitive needs: No Hearing needs: No Vision needs: No Female Reproductive History Menstrual control method: permanent sterilization Permanent Sterilization: BTL Age of menopause: 51 Physical Exam Vital Signs: Last Vital Signs BP 120/80 05/05/23 13:19 BMI result Body Mass Index 28.8 Const General: cooperative, healthy appearing, comfortable, no acute distress, well developed, alert and awake Other: vulva, perineal and labia were erythematous General: Yes bladder normal to palpation External Female Exam: normal external appearance and normal appearance of the urethra Speculum Exam - Vagina: normal appearance of the vagina, normal palpation and vagina atrophic Speculum Exam - Cervix: normal appearance of the cervix and normal palpation Bimanual exam- vagina & uterus: normal bimanual exam, normal palpation, bladder normal to palpation and normal palpation Results AMB Test Urine AMB Test Urine Negative Last Edit by CHAI Mckay on 05/05/23 13:31 Results Reviewed Results Reviewed: Laboratory Last Values Tst Clinic Negative 05/05/23 13:31 Assessment & Plan Assessment & Plan (1) Vaginal itching: Code(s): N89.8 - Other specified noninflammatory disorders of vagina Plan: Discussed: BV testing and GC/CT panel done today. Await results and treat accordingly. All of her questions and concerns were addressed to the best of my ability and shared decision making. She is agreeable to plan of care. (2) Vaginal burning: Comment: Offered to prescribe topical cream RX; she declines, I have a closet full . Code(s): N94.9 - Unspecified condition associated with female genital organs and menstrual cycle Orders: Orders Bacterial Vaginosis Panel Today N89.8 - Other specified noninflammatory disorders of vagina, N94.9 - Unspecified condition associated with female genital organs and menstrual cycle CT NG by PCR Today N89.8 - Other specified noninflammatory disorders of vagina, N94.9 - Unspecified condition associated with female genital organs and menstrual cycle AMB HCG Urine Test Today Z32.02 - Encounter for test, result negative Coding Level of Care Code Est Pt Level 3 (31104) Diagnoses Vaginal itching N89.8 Vaginal burning N94.9
[2023-05-05 13:19] VITALS: BP 120/80; BMI 28.8
== END 2023-05-05 14:38 | disposition home or self-care (01) ==
LOC: HO.HWS 11:41
PROVIDERS: PCP Internal Medicine; Visit Provider Advanced Practice Midwife
DX: N89.8 Other specified noninflammatory disorders of vagina (principal); N94.9 Unspecified condition associated with female genital organs and menstrual cycle; Z32.02 Encounter for pregnancy test, result negative
CPT/HCPCS: 99213

== ENCOUNTER 2023-05-05 13:50 | Outpatient (REF) | payer OTHER, SELFPAY | END 2023-05-05 13:51 | disposition home or self-care (01) | LOC: HO.LNP 13:50 | PROVIDERS: Visit Provider Advanced Practice Midwife | DX: Z13.89 Encounter for screening for other disorder (principal) ==

== ENCOUNTER 2023-05-14 09:02 | Emergency (ER) | payer OTHER, SELFPAY ==
[2023-05-14 09:21] VITALS: BP 168/85; PULSE 97; RESP 18; TEMP 36.4; O2SAT 99; BMI 25.4
[2023-05-14 09:37] LABS: Appearance Urine Turbid; Color Urine Yellow; Glucose Urine UA >=1000 mg/dL (Negative); Leukocyte Esterase Urine Moderate (2+) (Negative); Nitrite Urine Positive (Negative); PH 6.5 (5.0-9.0); Specific Gravity - Urine >= 1.030 (1.005-1.025); UMIC TRIGGER UACC YES; Urine Blood Moderate (2+) (Negative); Urine Ketones Trace mg/dL (Negative); Urine Protein 100 (2+) mg/dL (Neg-Trace)
--- NOTE | 2023-05-14 09:46 | ED_ITS ---
HPI - Female Genitourinary General Chief complaint: Urogenital-Female Stated complaint: Pain on Urination Time Seen by Provider: 05/14/23 09:13 Source: patient Mode of arrival: ambulatory Limitations: no limitations History of Present Illness HPI Narrative: 62-year-old female with history bipolar disorder, migraines, diabetes, HLD, kidney stone, TIA, polyarthralgia, fibromyalgia, pancreatitis who presents to the ER for evaluation increased urinary frequency, urgency, suprapubic pain and difficulty urinating for the last 2 days. 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 Patient states she is having difficulty emptying her bladder and feels like she has to push to get the urine out. She states her urine is foamy and cloudy. No blood. No vaginal discharge. She has lower back pain along with suprapubic pain. No nausea, vomiting, fever, chills. MD elicited complaint: difficulty urinating Onset (ago): day(s) (2) Location of symptoms: suprapubic Severity: moderate Quality of pain: burning and aching Consistency: constant Vaginal discharge: none Vaginal bleeding: none Urinary symptoms: Urgency, Frequency and Difficulty Urinating Exacerbating factors: urination Relieving factors: none Associated symptoms: loss of appetite Treatment prior to arrival: none Sexual activity: No Related Data Home Medications Medication Instructions Recorded Confirmed diazepam 10 mg tablet 10 mg PO BID PRN Muscle Spasm 09/03/20 04/29/23 pen needle, diabetic 31 gauge x #50 ea 09/03/20 04/29/23 3/16 alpha lipoic acid 600 mg capsule 600 mg PO BIDAC 03/01/22 04/29/23 cyanocobalamin (vitamin B-12) 1,000 mcg PO DAILY 03/01/22 04/29/23 1,000 mcg tablet vitamin B complex 1 tab PO DAILY 03/01/22 04/29/23 linagliptin 5 mg tablet (Tradjenta) 5 mg PO DAILY 03/04/23 04/29/23 melatonin 10 mg tablet 10 mg PO BEDTIME PRN Sleep 04/14/23 04/29/23 oxcarbazepine 600 mg tablet 600 mg PO BEDTIME 04/14/23 04/29/23 melatonin ER 10 mg-pyridoxine HCl 1 tab PO BEDTIME PRN 04/29/23 04/29/23 (B6) 10 mg tab, immed-extend release Previous Rx's Medication Instructions Recorded blood-glucose meter #1 ea 07/31/20 pen needle, diabetic, safety 30 #100 ea 03/25/22 gauge x 02/02 (Assure ID Pen Needle) pen needle, diabetic 31 gauge x #100 ea 07/07/22 516 (Advocate Pen Needle) cholecalciferol (vitamin D3) 25 25 mcg PO DAILY 90 days #90 caps 07/14/22 mcg (1,000 unit) capsule ibuprofen 600 mg tablet 600 mg PO TID PRN pain 90 days 07/30/22 #270 tabs carisoprodol 350 mg tablet 350 mg PO DAILY PRN Muscle Spasm 03/04/23 30 days #30 tabs albuterol sulfate 90 mcg/actuation 1 - 2 puff inhalation Q4-6H PRN 03/11/23 aerosol inhaler for dyspnea #8.5 grams blood pressure monitor #1 ea 03/11/23 blood-glucose meter (FreeStyle #1 ea 03/11/23 Lite Meter kit) metformin 1,000 mg tablet 1,000 mg PO BID #180 tabs 04/15/23 insulin lispro 200 unit/mL (3 mL) 20 unit (0.1 mL) subcut BID 90 04/29/23 subcutaneous pen (Humalog #18 mL U-200 Insulin) cefuroxime axetil 250 mg tablet 250 mg PO BID 7 days #14 tabs 05/14/23 phenazopyridine 100 mg tablet 100 mg PO TID PRN pain 6 doses #6 05/14/23 (Pyridium) tabs Allergies Allergy/AdvReac Type Severity Reaction Status Date / Time nickel Allergy Severe Rash Verified 05/05/23 13:20 acetaminophen [Percocet] Allergy Intermediate vomiting Verified 05/05/23 13:20 cyclobenzaprine Allergy Intermediate HEADACHE,DI Verified 05/05/23 13:20 [CYCLOBENZAPRINE] ZZINESS divalproex sodium [Depakote] Allergy Intermediate increase Verified 05/05/23 13:20 liver enzymes methocarbamol [METHOCARBAMOL] Allergy Intermediate TICS Verified 05/05/23 13:20 oxycodone [From PERCOCET] Allergy Intermediate VOMITING Verified 05/05/23 13:20 liraglutide [From Victoza] AdvReac Severe hypoglycemi Verified 05/05/23 13:20 a lisinopril AdvReac Severe Dizziness Verified 05/05/23 13:20 risperidone [RISPERIDONE] AdvReac Severe CHEST PAIN Verified 05/05/23 13:20 baclofen AdvReac Intermediate Palpitation Verified 05/05/23 13:20 s canagliflozin [Invokana] AdvReac Intermediate confusion Verified 05/05/23 13:20 dulaglutide [Trulicity] AdvReac Intermediate abdominal Verified 05/05/23 13:20 bloating, numbness, myalgia Narcotics Allergy Mild dizzy, sick Uncoded 04/29/23 14:36 Review of Systems Review of Systems: Yes all other systems are reviewed and are negative [facility] Past Medical History Medical History Basilar migraine Chest pain Chronic neck pain Diabetes mellitus Fibromyalgia Herpes simplex virus (HSV) infection Hypertension Intertrigo Migraine with aura Mixed hyperlipidemia Nickel allergy Nickel dermatitis Polyarthralgia Renal calculi Shortness of breath Vaginal burning Vaginal itching Surgical History History of section History of colonoscopy History of discectomy History of laparoscopic cholecystectomy History of laparoscopy History of prior ablation treatment History of tubal ligation Family History Family History Father Prostate cancer Diabetes High cholesterol HTN (hypertension) Mother Liver problem Diabetes High cholesterol HTN (hypertension) Family/Other Diabetes High cholesterol HTN (hypertension) Cancer Social History Social History Household Members: Children Household Members Other:: Son Housing: Apartment Alcohol intake: never Patient Tobacco Use Status: Former Tobacco user Tobacco use type: Cigarette Years Smoked: 18 e-Cigarette/Vaping Use: Never Used Second Hand Smoke Exposure: No Advance Directives: No Advance Directives Information Provided: No service: No Current occupational status: disabled Sexual orientation: Straight/Heterosexual Gender identity: Female Cognitive needs: No Hearing needs: No Vision needs: No Physical Exam Vital Signs: Vital Signs: Last Vital Signs Temp 97.6 F 05/14/23 09:21 Pulse 97 05/14/23 09:21 Resp 18 05/14/23 09:21 BP 168/85 H 05/14/23 09:21 Pulse Ox 99 05/14/23 09:21 O2 Del Method Room Air 05/14/23 09:21 BMI result Body Mass Index 25.4 Appearance: Alert. Oriented X3. No acute distress. Head: normocephalic, atraumatic. Eyes: Pupils equal, round and reactive to light. ENT: Pharynx normal. No tonsillar swelling or exudate. Neck: Normal inspection. CVS: Normal heart rate and rhythm. Pulses normal. Respiratory: No respiratory distress. Breath sounds normal. Abdomen: Soft with suprapubic tenderness. No rebound or guarding. +BS x4 Skin: Skin warm and dry. Normal skin color. Normal skin turgor. No rashes. Extremities: No lower extremity edema. No joint swelling. Neuro/psych: Oriented X 3. Grossly normal, nonfocal Normal speech and cognition. Medical Decision Making Medical Decision Making [facility] Narrative: 62-year-old female presents to the ER for evaluation of increased urgency, frequency and suprapubic discomfort for the last 2 days. She is hemodynamically stable and afebrile on arrival to the ER. She has suprapubic tenderness and appears uncomfortable. She has no CVA tenderness. Urinalysis today is consistent with infection. She does not appear to be septic at this time. Will treat with Ceftin and Pyridium for symptomatic relief. Medicated here for 1st dose. Patient stable for discharge home with outpatient follow-up. She was counseled on diagnosis and management as well return precautions. Stable for discharge home Differential Diagnosis Differential Diagnoses: The differential diagnosis associated with the presentation includes UTI, pyelonephritis, vaginosis, kidney stone Lab Data [facility] Lab Attestation statement: I reviewed the patient's lab results. Positive UTI Labs: Lab Results 05/14/23 Range/Units 09:30 Urine Color Yellow Urine Appearance Turbid Urine pH 6.5 (5.0-9.0) Ur Specific [place] >= 1.030 H (1.005-1.025) Urine Protein 100 (2+) H (Neg-Trace) mg/dL Urine Glucose (UA) >=1000 H (Negative) mg/dL Urine Ketones Trace (Negative) mg/dL Urine Blood Moderate (2+) H (Negative) Urine Nitrite Positive H (Negative) Ur Leukocyte Esterase Moderate (2+) H (Negative) External Record Review External record reviewed: Outpatient record and Prior outpatient labs Tests considered The following testing was considered but not selected: Considered basic lab workup and renal function assessment, however had recent labs week and half ago Prescription Management I considered prescription management with: Pain Medication and Antibiotic Chronic Conditions Patient?s care impacted by: Diabetes Critical Care Time Critical Care Time Critical Care Time: No Discharge Plan Discharge Clinical Impression: Acute UTI Patient Disposition: Home, Self-Care Instructions: Urinary Tract Infection in Women (DC) Additional Instructions: Your urine test showed you have a UTI. Take the prescribed antibiotics as directed, complete the entire course and do not miss any doses. Drink plenty of water and stay hydrated If you develop new or worsening symptoms call 911 or come back to the ER for further evaluation. Prescriptions: New cefuroxime axetil 250 mg tablet 250 mg PO BID 7 Days Qty: 14 0RF phenazopyridine [Pyridium] 100 mg tablet 100 mg PO TID PRN (Reason: pain) Qty: 6 0RF No Action (DME) blood-glucose meter Kit See Rx Instructions .ROUTE .MEDSUPPLY Qty: 1 0RF Rx Instructions: As directed (DME) Assure ID Pen Needle 30 gauge x 5/16 needle See Rx Instructions .ROUTE .MEDSUPPLY Qty: 100 6RF Rx Instructions: Use 1 pen needle once a day cholecalciferol (vitamin D3) 25 mcg (1,000 unit) capsule 25 mcg PO DAILY 90 Days Qty: 90 1RF ibuprofen 600 mg tablet 600 mg PO TID PRN (Reason: pain) 90 Days Qty: 270 3RF (DME) blood-glucose meter [FreeStyle Lite Meter] Kit See Rx Instructions .Route Qty: 1 0RF Rx Instructions: test 3 times per day albuterol sulfate 90 mcg/actuation HFA aerosol inhaler 1 - 2 puff inhalation Q4-6H PRN (Reason: for dyspnea) Qty: 8.5 2RF (DME) blood pressure monitor Kit See Rx Instructions .ROUTE .MEDSUPPLY Qty: 1 0RF Rx Instructions: As directed metformin 1,000 mg tablet 1,000 mg PO BID Qty: 180 1RF cyanocobalamin (vitamin B-12) 1,000 mcg Tablet 1,000 mcg PO DAILY vitamin B complex Tablet 1 tab PO DAILY alpha lipoic acid 600 mg Capsule 600 mg PO BIDAC oxcarbazepine 600 mg tablet 600 mg PO BEDTIME melatonin 10 mg tablet 10 mg PO BEDTIME PRN (Reason: Sleep) diazepam 10 mg tablet 10 mg PO BID PRN (Reason: Muscle Spasm) (DME) pen needle, diabetic 31 gauge x 3/16 needle See Rx Instructions topical QID Qty: 50 Rx Instructions: As directed Tradjenta 5 mg tablet 5 mg PO DAILY carisoprodol 350 mg tablet 350 mg PO DAILY PRN (Reason: Muscle Spasm) 30 Days Qty: 30 0RF melatonin-pyridoxine HCl (B6) 10-10 mg tablet, IR and ER, biphasic 1 tab PO BEDTIME PRN Humalog KwikPen Insulin 200 unit/mL (3 mL) insulin pen 20 unit subcut BID 90 Days Qty: 18 3RF (DME) pen needle, diabetic [Advocate Pen Needle] 31 gauge x 5/16 needle See Rx Instructions .Route Qty: 100 3RF Rx Instructions: Use 1 pen needle once a day
[2023-05-14 09:51] LABS: Bacteria Urine 4+ (None Seen); Hyaline Casts Urine 0-2 /LPF (0-2); RBC Urine >20 /HPF (0-2); Squamous Epithelial Cell Urine 0-2 /HPF (0-2); UACC Culture Trigger YES; WBC Urine >50 /HPF (0-5)
[2023-05-14] MEDS: Phenazopyridine HCL 100 MG TABLET PO (09:54)
== END 2023-05-14 09:58 | disposition home or self-care (01) ==
PROVIDERS: Physician Assistant; Emergency Provider Emergency Medicine Emergency Medical Services; PCP Internal Medicine
DX: R30.0 Dysuria (principal); R35.0 Frequency of micturition; Z79.899 Other long term (current) drug therapy; Z87.891 Personal history of nicotine dependence
CPT/HCPCS: 81001; 87086; 87088; 87186; 99283

== ENCOUNTER 2023-07-04 16:48 | Emergency (ER) | payer OTHER, SELFPAY ==
[2023-07-04 17:00] VITALS: BP 101/76; PULSE 106; RESP 20; TEMP 36.4; O2SAT 98; BMI 28.1
--- NOTE | 2023-07-04 17:01 | ED.GENADULT ---
HPI - General Adult General Chief complaint: Urogenital-Female Stated complaint: ?UTI Time Seen by Provider: 07/04/23 17:49 Source: patient Mode of arrival: ambulatory Limitations: no limitations History of Present Illness HPI narrative: 62-year-old female with history bipolar disorder, migraines, diabetes, HLD, kidney stone, TIA, polyarthralgia, fibromyalgia, pancreatitis who presents to the ER for evaluation increased urinary frequency, urgency, suprapubic pain and difficulty urinating for the last 2 days. Patient states she is having difficulty emptying her bladder and feels like she has to push to get the urine out. No vaginal discharge/hematuria. She has lower back pain along with suprapubic pain. No nausea, vomiting, fever, chills. Related Data Home Medications Medication Instructions Recorded Confirmed diazepam 10 mg tablet 10 mg PO BID PRN Muscle Spasm 09/03/20 04/29/23 pen needle, diabetic 31 gauge x #50 ea 09/03/20 04/29/2312/03 alpha lipoic acid 600 mg capsule 600 mg PO BIDAC 03/01/22 04/29/23 cyanocobalamin (vitamin B-12) 1,000 mcg PO DAILY 03/01/22 04/29/23 1,000 mcg tablet vitamin B complex 1 tab PO DAILY 03/01/22 04/29/23 linagliptin 5 mg tablet (Tradjenta) 5 mg PO DAILY 03/04/23 04/29/23 melatonin 10 mg tablet 10 mg PO BEDTIME PRN Sleep 04/14/23 04/29/23 oxcarbazepine 600 mg tablet 600 mg PO BEDTIME 04/14/23 04/29/23 melatonin ER 10 mg-pyridoxine HCl 1 tab PO BEDTIME PRN 04/29/23 04/29/23 (B6) 10 mg tab, immed-extend release Previous Rx's Medication Instructions Recorded blood-glucose meter #1 ea 07/31/20 pen needle, diabetic, safety 30 #100 ea 03/25/22 gauge x 5/16 (Assure ID Pen Needle) pen needle, diabetic 31 gauge x #100 ea 07/07/22 5/16 (Advocate Pen Needle) cholecalciferol (vitamin D3) 25 25 mcg PO DAILY 90 days #90 caps 07/14/22 mcg (1,000 unit) capsule ibuprofen 600 mg tablet 600 mg PO TID PRN pain 90 days 07/30/22 #270 tabs carisoprodol 350 mg tablet 350 mg PO DAILY PRN Muscle Spasm 03/04/23 30 days #30 tabs albuterol sulfate 90 mcg/actuation 1 - 2 puff inhalation Q4-6H PRN 03/11/23 aerosol inhaler for dyspnea #8.5 grams blood pressure monitor #1 ea 03/11/23 blood-glucose meter (FreeStyle #1 ea 03/11/23 Lite Meter kit) metformin 1,000 mg tablet 1,000 mg PO BID #180 tabs 04/15/23 insulin lispro 200 unit/mL (3 mL) 20 unit (0.1 mL) subcut BID 90 04/29/23 subcutaneous pen (Humalog #18 mL U-200 Insulin) cefuroxime axetil 250 mg tablet 250 mg PO BID 7 days #14 tabs 05/14/23 phenazopyridine 100 mg tablet 100 mg PO TID PRN pain 6 doses #6 05/14/23 (Pyridium) tabs fenofibrate 54 mg tablet 54 mg PO DAILY 90 days #90 tabs 05/27/23 nitrofurantoin 100 mg PO Q12H 5 days #10 caps 07/04/23 monohydrate/macrocrystals 100 mg capsule (Macrobid) phenazopyridine 200 mg tablet 200 mg PO TID PRN pain #15 tabs 07/04/23 (Pyridium) Allergies Allergy/AdvReac Type Severity Reaction Status Date / Time nickel Allergy Severe Rash Verified 05/05/23 13:20 acetaminophen [Percocet] Allergy Intermediate vomiting Verified 05/05/23 13:20 cyclobenzaprine Allergy Intermediate HEADACHE,DI Verified 05/05/23 13:20 [CYCLOBENZAPRINE] ZZINESS divalproex sodium [Depakote] Allergy Intermediate increase Verified 05/05/23 13:20 liver enzymes methocarbamol [METHOCARBAMOL] Allergy Intermediate TICS Verified 05/05/23 13:20 oxycodone [From PERCOCET] Allergy Intermediate VOMITING Verified 05/05/23 13:20 liraglutide [From Victoza] AdvReac Severe hypoglycemi Verified 05/05/23 13:20 a lisinopril AdvReac Severe Dizziness Verified 05/05/23 13:20 risperidone [RISPERIDONE] AdvReac Severe CHEST PAIN Verified 05/05/23 13:20 baclofen AdvReac Intermediate Palpitation Verified 05/05/23 13:20 s canagliflozin [Invokana] AdvReac Intermediate confusion Verified 05/05/23 13:20 dulaglutide [Trulicity] AdvReac Intermediate abdominal Verified 05/05/23 13:20 bloating, numbness, myalgia Narcotics Allergy Mild dizzy, sick Uncoded 04/29/23 14:36 Review of Systems Review of Systems: Yes all other systems are reviewed and are negative Constitutional: Constitutional: Reports no additional constitutional complaints, Denies body ache(s), Denies chills, Denies fever(s), Denies headache(s) and Denies weakness Eyes: Eyes: Reports no additional eye complaints and Denies change in vision ENT: Reports system reviewed and no additional complaints, except as documented, Denies dizziness, Denies headache(s), Denies nasal congestion, Denies nasal discharge and Denies neck pain Cardiovascular: Cardiovascular: Reports no additional cardiovascular complaints, Denies chest pain, Denies leg edema and Denies dyspnea Respiratory: Respiratory: Reports no additional respiratory complaints, Denies cough and Denies dyspnea Gastrointestinal: Gastrointestinal: Reports no additional gastrointestinal complaints, Denies abdominal pain, Denies diarrhea, Denies nausea and Denies vomiting Genitourinary: Genitourinary: Reports no additional female genitourinary complaints, Denies hematuria, Reports dysuria, Reports pelvic pain, Denies flank pain, Denies urinary incontinence, Reports urinary hesitancy, Reports urinary urgency and Denies vaginal discharge Musculoskeletal: Musculoskeletal: Reports no additional musculoskeletal complaints, Denies back pain, Denies arthralgias, Denies joint swelling, Denies neck pain, Denies numbness and Denies tingling Integumentary/Breasts: Skin/Breast: Reports system reviewed and no additional complaints, except as docu and Denies rash Neurologic: Reports system reviewed and no additional complaints, except as documented, Denies Abnormal speech present, Denies dizziness, Denies headache(s), Denies numbness, Denies tingling and Denies weakness PMFSH Past Medical History Attestation statement: The following information was validated with the patient. Source: old records reviewed and nursing notes reviewed Medical History Vaginal burning Vaginal itching Diabetes mellitus Basilar migraine Migraine with aura Hypertension Renal calculi Chest pain Shortness of breath Mixed hyperlipidemia Fibromyalgia Chronic neck pain Nickel allergy Nickel dermatitis Herpes simplex virus (HSV) infection Intertrigo Polyarthralgia Surgical History History of prior ablation treatment History of discectomy History of laparoscopy History of tubal ligation History of colonoscopy History of laparoscopic cholecystectomy History of section Family History Family History Father Prostate cancer Diabetes High cholesterol HTN (hypertension) Mother Liver problem Diabetes High cholesterol HTN (hypertension) Family/Other Diabetes High cholesterol HTN (hypertension) Cancer Social History Social History Household Members: Children Household Members Other:: Son Housing: Apartment Alcohol intake: never Patient Tobacco Use Status: Former Tobacco user Tobacco use type: Cigarette Years Smoked: 18 e-Cigarette/Vaping Use: Never Used Second Hand Smoke Exposure: No Advance Directives: No Advance Directives Information Provided: Yes service: No Current occupational status: disabled Sexual orientation: Straight/Heterosexual Gender identity: Female Cognitive needs: No Hearing needs: No Vision needs: No Physical Exam ED Vital Signs: Vital Signs - 24 hr 07/04/23 17:00 Temperature 97.6 F Pulse Rate 106 H Respiratory Rate 20 Blood Pressure 101/76 Pulse Oximetry 98 Oxygen Delivery Method Room Air BMI result Body Mass Index 28.1 Const General: cooperative, healthy appearing, comfortable and no acute distress Orientation/consciousness: patient oriented x3 Limitations: no limitations HENMT Head: Yes normal to inspection Ears: hearing grossly normal bilaterally General nose exam: Normal external nose present Face and sinus: Yes normal facial exam Mouth: Normal oral and palatal mucosa present Throat: Yes posterior oropharynx normal Eyes General: appearance normal, both eyes and all related structures Pupils: Equal, round and reactive pupils present Neck Neck: Yes normal visual inspection Chest Chest palpation & inspection: normal inspection of the chest Resp Effort & Inspection: normal respiratory effort Auscultation: clear to auscultation bilaterally Cardio Rate: regular rate Rhythm: regular rhythm Peripheral pulses: Peripheral pulses 2+ throughout GI Inspection: Yes normal to inspection Palpation (GI): Soft to palpation and nontender Auscultation: normal bowel sounds General: Yes no CVA tenderness Back/Spine/Pelvis Back: no CVA tenderness Thoracic/Lumbar Spine: thoracic and lumbar spine normal to inspection Skin General skin exam: no rashes or lesions noted Neuro General: patient oriented x3, no focal motor deficits and normal sensation to monofilament Cranial nerves: Yes Equal, round and reactive pupils present Cognition (Neuro): normal cognition Speech: No Abnormal speech present Gait exam (Neuro): Normal gait present Motor exam (neuro): 5/5 motor strength present throughout Extrem General: Yes normal to inspection Course Course Course Narrative: RME: 63 yold female presents to the ED For dysuria and lower abdominal pain. Patient states no recent truama or blood in the urnine Medical Decision Making Medical Decision Making [facility] Narrative: 62-year-old female with history bipolar disorder, migraines, diabetes, HLD, kidney stone, TIA, polyarthralgia, fibromyalgia, pancreatitis who presents to the ER for evaluation increased urinary frequency, urgency, suprapubic pain and difficulty urinating for the last 2 days. Patient states she is having difficulty emptying her bladder and feels like she has to push to get the urine out. No vaginal discharge/hematuria. She has lower back pain along with suprapubic pain. No nausea, vomiting, fever, chills. no focal abdominal pain. No CVA tenderness. Will review urine and POC ordered from triage. Differential Diagnosis Differential Diagnoses: The differential diagnosis associated with the presentation includes UTI low concern for renal colic or pyelonephritis no flank pain, focal abdominal pain on exam. No CVA tenderness. Patient nontoxic, afebrile. Admission/Observation Consideration of admission/observation: Escalation of care including admission/observation considered Patient afebrile, nontoxic, no evidence on exam of renal colic pyelonephritis suggest need for IV antibiotics and/or admission. Lab Data [facility] Lab Attestation statement: I reviewed the patient's lab results. Mild hyperglycemia UA is consistent with UTI Labs: Lab Results 07/04/23 07/04/23 Range/Units 17:06 17:15 POC Glucose 339 H (60-115) mg/dL Urine Color Yellow Urine Appearance Cloudy Urine pH 6.0 (5.0-9.0) Ur Specific [place] 1.025 (1.005-1.025) Urine Protein 100 (2+) H (Neg-Trace) mg/dL Urine Glucose (UA) >=1000 H (Negative) mg/dL Urine Ketones 15 (Negative) mg/dL Urine Blood Moderate (2+) H (Negative) Urine Nitrite Positive H (Negative) Ur Leukocyte Esterase Small (1+) H (Negative) Urine RBC 11-20 H (0-2) /HPF Urine WBC >50 H (0-5) /HPF Ur Squamous Epith Cells 0-2 (0-2) /HPF Urine Bacteria 4+ (None Seen) Hyaline Casts 0-2 (0-2) /LPF Independent Historian Clinical information obtained from an independent historian. History obtained from or confirmed by: Friend Tests considered The following testing was considered but not selected: no focal abdominal pain or CVA tenderness suggesting for CT A/P Prescription Management I considered prescription management with: Antibiotic Chronic Conditions Patient?s care impacted by: Diabetes Discharge Plan Discharge Clinical Impression: Urinary tract infection Patient Disposition: Home, Self-Care Instructions: Urinary Tract Infection in Women (ED) Additional Instructions: Increase fluids, rest Return for any worsening symptoms Prescriptions: New nitrofurantoin monohyd/m-cryst [Macrobid] 100 mg capsule 100 mg PO Q12H 5 Days Qty: 10 0RF Rx Instructions: must administer with a meal/food phenazopyridine [Pyridium] 200 mg tablet 200 mg PO TID PRN (Reason: pain) Qty: 15 0RF No Action (DME) blood-glucose meter Kit See Rx Instructions .ROUTE .MEDSUPPLY Qty: 1 0RF Rx Instructions: As directed (DME) Assure ID Pen Needle 30 gauge x 5/16 needle See Rx Instructions .ROUTE .MEDSUPPLY Qty: 100 6RF Rx Instructions: Use 1 pen needle once a day cholecalciferol (vitamin D3) 25 mcg (1,000 unit) capsule 25 mcg PO DAILY 90 Days Qty: 90 1RF ibuprofen 600 mg tablet 600 mg PO TID PRN (Reason: pain) 90 Days Qty: 270 3RF (DME) blood-glucose meter [FreeStyle Lite Meter] Kit See Rx Instructions .Route Qty: 1 0RF Rx Instructions: test 3 times per day albuterol sulfate 90 mcg/actuation HFA aerosol inhaler 1 - 2 puff inhalation Q4-6H PRN (Reason: for dyspnea) Qty: 8.5 2RF (DME) blood pressure monitor Kit See Rx Instructions .ROUTE .MEDSUPPLY Qty: 1 0RF Rx Instructions: As directed metformin 1,000 mg tablet 1,000 mg PO BID Qty: 180 1RF fenofibrate 54 mg tablet 54 mg PO DAILY 90 Days Qty: 90 1RF cyanocobalamin (vitamin B-12) 1,000 mcg Tablet 1,000 mcg PO DAILY vitamin B complex Tablet 1 tab PO DAILY alpha lipoic acid 600 mg Capsule 600 mg PO BIDAC oxcarbazepine 600 mg tablet 600 mg PO BEDTIME melatonin 10 mg tablet 10 mg PO BEDTIME PRN (Reason: Sleep) cefuroxime axetil 250 mg tablet 250 mg PO BID 7 Days Qty: 14 0RF phenazopyridine [Pyridium] 100 mg tablet 100 mg PO TID PRN (Reason: pain) Qty: 6 0RF diazepam 10 mg tablet 10 mg PO BID PRN (Reason: Muscle Spasm) (DME) pen needle, diabetic 31 gauge x 3/16 needle See Rx Instructions topical QID Qty: 50 Rx Instructions: As directed Tradjenta 5 mg tablet 5 mg PO DAILY carisoprodol 350 mg tablet 350 mg PO DAILY PRN (Reason: Muscle Spasm) 30 Days Qty: 30 0RF melatonin-pyridoxine HCl (B6) 10-10 mg tablet, IR and ER, biphasic 1 tab PO BEDTIME PRN Humalog KwikPen Insulin 200 unit/mL (3 mL) insulin pen 20 unit subcut BID 90 Days Qty: 18 3RF (DME) pen needle, diabetic [Advocate Pen Needle] 31 gauge x 5/16 needle See Rx Instructions .Route Qty: 100 3RF Rx Instructions: Use 1 pen needle once a day Referrals: An Gregory MD [Primary Care Provider] - 1 week
[2023-07-04 17:17] LABS: Glucose, Whole Blood 339 mg/dL (60-115)
[2023-07-04 17:22] LABS: Appearance Urine Cloudy; Color Urine Yellow; Glucose Urine UA >=1000 mg/dL (Negative); Leukocyte Esterase Urine Small (1+) (Negative); Nitrite Urine Positive (Negative); Specific Gravity - Urine 1.025 (1.005-1.025); UMIC TRIGGER UACC YES; Urine Blood Moderate (2+) (Negative); Urine Ketones 15 mg/dL (Negative); Urine Protein 100 (2+) mg/dL (Neg-Trace)
[2023-07-04 17:27] LABS: Bacteria Urine 4+ (None Seen); Hyaline Casts Urine 0-2 /LPF (0-2); Squamous Epithelial Cell Urine 0-2 /HPF (0-2); UACC Culture Trigger YES; WBC Urine >50 /HPF (0-5)
== END 2023-07-04 17:55 | disposition home or self-care (01) ==
PROVIDERS: Physician Assistant; Emergency Provider Emergency Medicine; PCP Internal Medicine
DX: N39.0 Urinary tract infection, site not specified (principal); R35.0 Frequency of micturition; R30.0 Dysuria; M54.50 Low back pain, unspecified; R33.9 Retention of urine, unspecified; Z87.891 Personal history of nicotine dependence; Z79.899 Other long term (current) drug therapy
CPT/HCPCS: 81001; 82947; 87086; 87088; 87186; 99282; 99283

== ENCOUNTER 2023-08-01 03:10 | Emergency (ER) | payer OTHER, SELFPAY ==
--- NOTE | ~2023-08-01 | CT_ITS ---
EXAMINATION: CT ABDOMEN AND PELVIS WITHOUT CONTRAST CLINICAL INFORMATION: Abdominal pain. COMPARISON: 08/01/2016. TECHNIQUE: Multidetector volumetric imaging was performed from the superior aspect of the liver through the pubic symphysis. Sagittal and coronal reformatted images were obtained on the technologist's workstation. This CT examination was performed using dose optimization techniques as appropriate, variously including the following: *Automated exposure control *Adjustment of mA and/or kV according to patient size (this includes techniques or standardized protocols for targeted exams where dose is matched to indication/reason for exam; i.e. extremities or head) *Use of iterative reconstruction technique DLP: 461 mGy-cm FINDINGS: LUNG BASES: The visualized lung bases are unremarkable. LIVER, GALLBLADDER, AND BILIARY TREE: The liver is heterogeneous in attenuation and irregular in contour. There is no focal consolidation. There is no intrahepatic biliary duct dilatation. There has been a prior cholecystectomy. PANCREAS: Unremarkable. SPLEEN: Spleen is mildly enlarged measuring up to 14 cm. ADRENAL GLANDS: There bilateral adrenal gland thickening and a 1.4 cm left adrenal nodule.. KIDNEYS AND URETERS: The kidneys are normal in size, shape, and attenuation. There is a 3 mm nonobstructing calculus lower pole left kidney. There is a 1.7 cm cyst upper pole left kidney. There is no hydronephrosis. BLADDER: Unremarkable. GASTROINTESTINAL TRACT: The small and large bowel are unremarkable. The appendix is unremarkable. ABDOMINAL WALL: No significant hernia is appreciated. LYMPH NODES: Normal. VASCULAR: Unremarkable. PELVIC VISCERA: Unremarkable. OSSEOUS STRUCTURES: Unremarkable. CT/CT abdomen pelvis wo IV con IMPRESSION: Heterogeneous irregular liver consistent with hepatocellular disease/cirrhosis. There is mild associated splenomegaly. Obstructing calculus lower pole left kidney. Fleischner guidelines were followed.
[2023-08-01 03:21] VITALS: BP 129/78; PULSE 92; RESP 16; TEMP 36.2; O2SAT 98; BMI 28.3
[2023-08-01 04:16] LABS: Imm Gran Abs Auto 0.02 X10*3/uL (0.00-0.03); Imm Gran Pct Auto 0.3 % (0.0-0.4); Mean Corpuscular Volume 85.1 fL (80.0-98.0); PLT CLUMP 1; SCAN SMEAR FLAG 1
[2023-08-01 04:18] LABS: Basophils Percent Auto 0.5 % (0-2); Eosinophils Absolute Auto 0.2 X10*3/uL (0.0-0.4); Eosinophils Percent Auto 2.5 % (0-4); Hematocrit 39.5 % (37.0-47.0); Hemoglobin 13.7 g/dl (12.0-16.0); Lymphocytes Absolute Auto 2.8 X10*3/uL (1.2-4.9); Lymphocytes Percent Auto 43.5 % (20-40); MANUAL DIFF FLAG NO; Mean Corpuscular HGB Conc 34.7 g/dl (31.0-35.0); Mean Corpuscular Hemoglobin 29.5 pg (27.0-33.0); Mean Platelet Volume 11.4 fL (9.4-12.3); Monocytes Absolute Auto 0.5 X10*3/uL (0.1-1.2); Monocytes Percent Auto 7.9 % (2-11); Neutrophils Absolute Auto 2.9 x10*3/uL (2.0-8.3); Neutrophils Percent Auto 45.3 % (45-73); Platelet Count 134 X10*3/uL (160-400); Red Blood Count 4.64 X10*6/uL (4.20-5.50); Red Cell Distribution Width 12.4 % (11.0-16.0); White Blood Count 6.4 X10*3/uL (4.8-10.8)
[2023-08-01 04:30] LABS: Alanine Aminotransferase 29 U/L (0-31); Albumin Level 3.9 g/dL (3.5-5.0); Alkaline Phosphatase 157 U/L (39-117); Anion Gap 13 (12-20); Aspartate Amino Transferase 27 U/L (5-31); Bilirubin Direct 0.2 mg/dL (0.0-0.5); Bilirubin Total 0.6 mg/dL (0.0-1.0); Blood Urea Nitrogen 6 mg/dL (9-16); Calcium 9.2 mg/dL (8.4-10.2); Carbon Dioxide 26 mmol/L (22-29); Chloride 99 mmol/L (96-108); Creatinine Clr Calc Pharmacy 69.4; Estimated Glomerular Filt Rate > 60; Glucose Random 296 mg/dL (60-115); Lipase 68 U/L (8-78); Potassium 3.8 mmol/L (3.3-5.1); Sodium 134 mmol/L (135-145); Total Protein 7.2 g/dL (6.5-8.0)
[2023-08-01 04:37] LABS: Troponin-I High Sensitivity < 2.7 ng/L (<3.5-17.0)
--- NOTE | 2023-08-01 04:47 | ED_ITS ---
HPI - Abdominal Pain General Chief Complaint: Abdominal Pain Stated Complaint: Abd pain Time Seen by Provider: 08/01/23 04:26 Source: patient and family Mode of arrival: ambulatory Limitations: no limitations History of Present Illness HPI narrative: 63-year-old female came in for evaluation of left-sided abdominal pain with nausea and vomiting, normal bowel movement earlier today with no diarrhea, no fever, no chills, no sick contact, no recent travel. Related Data Home Medications Medication Instructions Recorded Confirmed diazepam 10 mg tablet 10 mg PO BID PRN Muscle Spasm 09/03/20 04/29/23 pen needle, diabetic 31 gauge x #50 ea 09/03/20 04/29/2312/03 alpha lipoic acid 600 mg capsule 600 mg PO BIDAC 03/01/22 04/29/23 cyanocobalamin (vitamin B-12) 1,000 mcg PO DAILY 03/01/22 04/29/23 1,000 mcg tablet vitamin B complex 1 tab PO DAILY 03/01/22 04/29/23 melatonin 10 mg tablet 10 mg PO BEDTIME PRN Sleep 04/14/23 04/29/23 oxcarbazepine 600 mg tablet 600 mg PO BEDTIME 04/14/23 04/29/23 melatonin ER 10 mg-pyridoxine HCl 1 tab PO BEDTIME PRN 04/29/23 04/29/23 (B6) 10 mg tab, immed-extend release Previous Rx's Medication Instructions Recorded blood-glucose meter #1 ea 07/31/20 pen needle, diabetic, safety 30 #100 ea 03/25/22 gauge x 5/16 (Assure ID Pen Needle) pen needle, diabetic 31 gauge x #100 ea 07/07/22 5/16 (Advocate Pen Needle) cholecalciferol (vitamin D3) 25 25 mcg PO DAILY 90 days #90 caps 07/14/22 mcg (1,000 unit) capsule ibuprofen 600 mg tablet 600 mg PO TID PRN pain 90 days 07/30/22 #270 tabs albuterol sulfate 90 mcg/actuation 1 - 2 puff inhalation Q4-6H PRN 03/11/23 aerosol inhaler for dyspnea #8.5 grams blood pressure monitor #1 ea 03/11/23 blood-glucose meter (FreeStyle #1 ea 03/11/23 Lite Meter kit) metformin 1,000 mg tablet 1,000 mg PO BID #180 tabs 04/15/23 cefuroxime axetil 250 mg tablet 250 mg PO BID 7 days #14 tabs 05/14/23 phenazopyridine 100 mg tablet 100 mg PO TID PRN pain 6 doses #6 05/14/23 (Pyridium) tabs fenofibrate 54 mg tablet 54 mg PO DAILY 90 days #90 tabs 05/27/23 nitrofurantoin 100 mg PO Q12H 5 days #10 caps 07/04/23 monohydrate/macrocrystals 100 mg capsule (Macrobid) phenazopyridine 200 mg tablet 200 mg PO TID PRN pain #15 tabs 07/04/23 (Pyridium) carisoprodol 350 mg tablet 350 mg PO DAILY PRN Muscle Spasm 07/07/23 30 days #30 tabs cefuroxime axetil 250 mg tablet 250 mg PO BID 7 days #14 tabs 07/08/23 insulin lispro 200 unit/mL (3 mL) 20 unit (0.1 mL) subcut BID 90 07/09/23 subcutaneous pen (Humalog Kw days #18 mL U-200 Insulin) linagliptin 5 mg tablet (Tradjenta) 5 mg PO DAILY #90 tabs 07/09/23 Allergies Allergy/AdvReac Type Severity Reaction Status Date / Time nickel Allergy Severe Rash Verified 05/05/23 13:20 acetaminophen [Percocet] Allergy Intermediate vomiting Verified 05/05/23 13:20 cyclobenzaprine Allergy Intermediate HEADACHE,DI Verified 05/05/23 13:20 [CYCLOBENZAPRINE] ZZINESS divalproex sodium [Depakote] Allergy Intermediate increase Verified 05/05/23 13:20 liver enzymes methocarbamol [METHOCARBAMOL] Allergy Intermediate TICS Verified 05/05/23 13:20 oxycodone [From PERCOCET] Allergy Intermediate VOMITING Verified 05/05/23 13:20 liraglutide [From Victoza] AdvReac Severe hypoglycemi Verified 05/05/23 13:20 a lisinopril AdvReac Severe Dizziness Verified 05/05/23 13:20 risperidone [RISPERIDONE] AdvReac Severe CHEST PAIN Verified 05/05/23 13:20 baclofen AdvReac Intermediate Palpitation Verified 05/05/23 13:20 s canagliflozin [Invokana] AdvReac Intermediate confusion Verified 05/05/23 13:20 dulaglutide [Trulicity] AdvReac Intermediate abdominal Verified 05/05/23 13:20 bloating, numbness, myalgia Narcotics Allergy Mild dizzy, sick Uncoded 04/29/23 14:36 Review of Systems Review of Systems all other systems are reviewed and are negative Constitutional: Reports as per HPI and Reports no additional constitutional complaints Eyes: Reports as per HPI and Reports no additional eye complaints Reports system reviewed and no additional complaints, except as documented Cardiovascular: Reports as per HPI and Reports no additional cardiovascular complaints Respiratory: Reports as per HPI and Reports no additional respiratory complaints Gastrointestinal: Reports as per HPI and Reports no additional gastrointestinal complaints Genitourinary: Reports no additional female genitourinary complaints Musculoskeletal: Reports no additional musculoskeletal complaints Skin/Breast: Reports system reviewed and no additional complaints, except as docu Psychiatric: Reports no additional psychiatric complaints Endocrine: Reports no additional endocrine complaints Hematologic/Lymphatic: Reports no additional hematologic/lymphatic complaints Allergic/Immunologic: Reports no additional allergic/immunologic complaints Reports system reviewed and no additional complaints, except as documented and Reports Abnormal speech present [facility] Past Medical History Medical History Vaginal burning Vaginal itching Diabetes mellitus Basilar migraine Migraine with aura Hypertension Renal calculi Chest pain Shortness of breath Mixed hyperlipidemia Fibromyalgia Chronic neck pain Nickel allergy Nickel dermatitis Herpes simplex virus (HSV) infection Intertrigo Polyarthralgia Surgical History History of prior ablation treatment History of discectomy History of laparoscopy History of tubal ligation History of colonoscopy History of laparoscopic cholecystectomy History of section Family History Family History Father Prostate cancer Diabetes High cholesterol HTN (hypertension) Mother Liver problem Diabetes High cholesterol HTN (hypertension) Family/Other Diabetes High cholesterol HTN (hypertension) Cancer Social History Social History Household Members: Children Household Members Other:: Son Housing: Apartment Alcohol intake: never Patient Tobacco Use Status: Former Tobacco user Tobacco use type: Cigarette Years Smoked: 18 e-Cigarette/Vaping Use: Never Used Second Hand Smoke Exposure: No service: No Current occupational status: disabled Sexual orientation: Straight/Heterosexual Gender identity: Female Cognitive needs: No Hearing needs: No Vision needs: No Physical Exam ED Vital Signs: Vital Signs - 24 hr 08/01/23 03:21 08/01/23 06:11 Temperature 97.1 F 97.9 F Pulse Rate 92 79 Respiratory Rate 16 16 Blood Pressure 129/78 122/65 Pulse Oximetry 98 97 Oxygen Delivery Method Room Air Room Air BMI result Body Mass Index 28.3 Vital signs have been reviewed and appear to be correct. Blood pressure elevated. Heart rate normal. Respiratory rate normal. Temperature normal. Oxygen saturation normal. Appearance: Alert. Oriented X3. No acute distress. Head: Normal external exam. Normocephalic. Atraumatic. No Dan signs noted. No raccoon eyes noted Eyes: PERRLA. EOMI. Conjunctiva and sclera normal. Eyelids normal. ENT: TM's Normal. Pharynx normal. Uvula midline. Moist mucous membranes. No trismus noted. No drooling noted. No muffled voice noted. Neck: Normal inspection. Neck supple. FROM. No adenopathy. Thyroid Normal. No meningeal signs. No neck mass noted. CVS: Normal heart rate and rhythm. Heart sound normal. No murmurs noted. Pulses normal throughout. Respiratory: No respiratory distress. Painless inspiration. Breath sounds normal. No wheezes/rales/rhonchi noted. Chest nontender. No accessory muscle usage noted or decreased air movement noted. Abdomen: Soft, left abdominal tenderness, no guarding, no rebound tenderness. Bowel sounds normal in all 4 quadrants. No distention noted. No organomegaly noted. No visible injury noted. Back: No CVA tenderness. Full range of motion noted. Skin: Skin warm and dry. Normal skin color. Normal skin turgor. No rashes/lesions/lacerations noted. Extremities: No lower extremity edema. Extremities exhibit normal range of motion. Extremities nontender. Neuro: Oriented X 3. Cranial nerve exam: II-XII are grossly intact No motor deficit. No sensory deficit. Reflexes normal. Course Reevaluation(s) Reevaluation #1: Abdominal pain with nausea and vomiting likely due to a food that she ate, CT abdomen and pelvis is unremarkable, no white count elevation. Time: 06:59 Medical Decision Making Differential Diagnosis Differential Diagnoses: The differential diagnosis associated with the presentation includes ( Appendicitis, colitis, diverticulitis, UTI, pyelonephritis, electrolyte abnormality, severe anemia.) Admission/Observation Consideration of admission/observation: Escalation of care including admission/observation considered Lab Data MDM Lab Attestation statement: I reviewed the patient's lab results. 08/01/23 04:11 08/01/23 04:11 Labs: Lab Results 08/01/23 08/01/23 Range/Units 04:11 06:12 WBC 6.4 (4.8-10.8) X10*3/uL RBC 4.64 (4.20-5.50) X10*6/uL Hgb 13.7 (12.0-16.0) g/dl Hct 39.5 (37.0-47.0) % MCV 85.1 (80.0-98.0) fL MCH 29.5 (27.0-33.0) pg MCHC 34.7 (31.0-35.0) g/dl RDW 12.4 (11.0-16.0) % Plt Count 134 L (160-400) X10*3/uL MPV 11.4 (9.4-12.3) fL Immature Gran % (Auto) 0.3 (0.0-0.4) % Neut % (Auto) 45.3 (45-73) % Lymph % (Auto) 43.5 H (20-40) % Lawrence % (Auto) 7.9 (2-11) % Eos % (Auto) 2.5 (0-4) % Baso % (Auto) 0.5 (0-2) % Lymph # (Auto) 2.8 (1.2-4.9) X10*3/uL Lawrence # (Auto) 0.5 (0.1-1.2) X10*3/uL Eos # (Auto) 0.2 (0.0-0.4) X10*3/uL Baso # (Auto) 0.0 (0.0-0.2) X10*3/uL Abs Immat Gran (auto) 0.02 (0.00-0.03) X10*3/uL Absolute Neuts (auto) 2.9 (2.0-8.3) x10*3/uL Absolute Nucleated RBC 0.000 (0.0-0.012) X10*3/uL Nucleated RBC % (auto) 0.0 (0.0-0.2) /100WBC Sodium 134 L (135-145) mmol/L Potassium 3.8 (3.3-5.1) mmol/L Chloride 99 (96-108) mmol/L Carbon Dioxide 26 (22-29) mmol/L Anion Gap 13 (12-20) BUN 6 L (9-16) mg/dL Creatinine 0.68 (0.5-1.4) mg/dL Estim Creat Clear Calc 69.4 Estimated GFR > 60 Random Glucose 296 H (60-115) mg/dL Calcium 9.2 (8.4-10.2) mg/dL Total Bilirubin 0.6 (0.0-1.0) mg/dL Direct Bilirubin 0.2 (0.0-0.5) mg/dL AST 27 (5-31) U/L ALT 29 (0-31) U/L Alkaline Phosphatase 157 H (39-117) U/L Troponin I High Sens < 2.7 (<3.5-17.0) ng/L Total Protein 7.2 (6.5-8.0) g/dL Albumin 3.9 (3.5-5.0) g/dL Lipase 68 (8-78) U/L Urine Color Yellow Urine Appearance Cloudy Urine pH 8.0 (5.0-9.0) Ur Specific [place] >= 1.030 H (1.005-1.025) Urine Protein Negative (Neg-Trace) mg/dL Urine Glucose (UA) >=1000 H (Negative) mg/dL Urine Ketones Negative (Negative) mg/dL Urine Blood Negative (Negative) Urine Nitrite Negative (Negative) Ur Leukocyte Esterase Negative (Negative) Urine RBC 0-2 (0-2) /HPF Urine WBC 0-5 (0-5) /HPF Ur Squamous Epith Cells 0-2 (0-2) /HPF Urine Bacteria None Seen (None Seen) Hyaline Casts 0-2 (0-2) /LPF Independent Interpretation I performed an independent interpretation of an: CT Scan ( Abdomen pelvis:Heterogeneous irregular liver consistent with hepatocellular disease/cirrhosis. There is mild associated splenomegaly. Obstructing calculus lower pole left kidney. ) Radiology Impression Discussion of test interpretation with radiology: I have reviewed the radiologist's reading. Medications Administered Discontinued Medications Generic Name Dose Route Start Last Admin Trade Name Freq PRN Reason Stop Dose Admin Sodium Chloride 1,000 mls @ 999 mls/hr 08/01/23 03:16 08/01/23 04:54 Ns IV 08/01/23 04:16 999 mls/hr .Q1H1M ONE Administration Discharge Plan Discharge Clinical Impression: Abdominal pain Qualifiers: Abdominal location: left lower quadrant Qualified Code(s): R10.32 - Left lower quadrant pain Patient Disposition: Home, Self-Care Instructions: Acute Abdominal Pain (ED) Prescriptions: No Action (DME) blood-glucose meter Kit See Rx Instructions .ROUTE .MEDSUPPLY Qty: 1 0RF Rx Instructions: As directed (DME) Assure ID Pen Needle 30 gauge x 5/16 needle See Rx Instructions .ROUTE .MEDSUPPLY Qty: 100 6RF Rx Instructions: Use 1 pen needle once a day cholecalciferol (vitamin D3) 25 mcg (1,000 unit) capsule 25 mcg PO DAILY 90 Days Qty: 90 1RF ibuprofen 600 mg tablet 600 mg PO TID PRN (Reason: pain) 90 Days Qty: 270 3RF (DME) blood-glucose meter [FreeStyle Lite Meter] Kit See Rx Instructions .Route Qty: 1 0RF Rx Instructions: test 3 times per day albuterol sulfate 90 mcg/actuation HFA aerosol inhaler 1 - 2 puff inhalation Q4-6H PRN (Reason: for dyspnea) Qty: 8.5 2RF (DME) blood pressure monitor Kit See Rx Instructions .ROUTE .MEDSUPPLY Qty: 1 0RF Rx Instructions: As directed metformin 1,000 mg tablet 1,000 mg PO BID Qty: 180 1RF fenofibrate 54 mg tablet 54 mg PO DAILY 90 Days Qty: 90 1RF carisoprodol 350 mg tablet 350 mg PO DAILY PRN (Reason: Muscle Spasm) 30 Days Qty: 30 0RF Tradjenta 5 mg tablet 5 mg PO DAILY Qty: 90 2RF Humalog KwikPen Insulin 200 unit/mL (3 mL) insulin pen 20 unit subcut BID 90 Days Qty: 18 3RF cyanocobalamin (vitamin B-12) 1,000 mcg Tablet 1,000 mcg PO DAILY vitamin B complex Tablet 1 tab PO DAILY alpha lipoic acid 600 mg Capsule 600 mg PO BIDAC oxcarbazepine 600 mg tablet 600 mg PO BEDTIME melatonin 10 mg tablet 10 mg PO BEDTIME PRN (Reason: Sleep) cefuroxime axetil 250 mg tablet 250 mg PO BID 7 Days Qty: 14 0RF phenazopyridine [Pyridium] 100 mg tablet 100 mg PO TID PRN (Reason: pain) Qty: 6 0RF nitrofurantoin monohyd/m-cryst [Macrobid] 100 mg capsule 100 mg PO Q12H 5 Days Qty: 10 0RF Rx Instructions: must administer with a meal/food phenazopyridine [Pyridium] 200 mg tablet 200 mg PO TID PRN (Reason: pain) Qty: 15 0RF cefuroxime axetil 250 mg tablet 250 mg PO BID 7 Days Qty: 14 0RF diazepam 10 mg tablet 10 mg PO BID PRN (Reason: Muscle Spasm) (DME) pen needle, diabetic 31 gauge x 3/16 needle See Rx Instructions topical QID Qty: 50 Rx Instructions: As directed melatonin-pyridoxine HCl (B6) 10-10 mg tablet, IR and ER, biphasic 1 tab PO BEDTIME PRN (DME) pen needle, diabetic [Advocate Pen Needle] 31 gauge x 5/16 needle See Rx Instructions .Route Qty: 100 3RF Rx Instructions: Use 1 pen needle once a day Referrals: An Gregory MD [Primary Care Provider] -
[2023-08-01] MEDS: 0.9 % Sodium Chloride 1,000 ML 999 ML IV (04:54)
[2023-08-01 06:11] VITALS: BP 122/65; PULSE 79; RESP 16; TEMP 36.6; O2SAT 97
[2023-08-01 06:22] LABS: Appearance Urine Cloudy; Color Urine Yellow; Glucose Urine UA >=1000 mg/dL (Negative); Leukocyte Esterase Urine Negative (Negative); Nitrite Urine Negative (Negative); Specific Gravity - Urine >= 1.030 (1.005-1.025); UMIC TRIGGER UACC YES; Urine Blood Negative (Negative); Urine Ketones Negative (Negative); Urine Protein Negative (Neg-Trace)
[2023-08-01 06:30] LABS: Bacteria Urine None Seen (None Seen); Hyaline Casts Urine 0-2 /LPF (0-2); RBC Urine 0-2 /HPF (0-2); Squamous Epithelial Cell Urine 0-2 /HPF (0-2); WBC Urine 0-5 /HPF (0-5)
== END 2023-08-01 07:33 | disposition home or self-care (01) ==
PROVIDERS: Emergency Provider Emergency Medicine; PCP Internal Medicine
DX: R10.32 Left lower quadrant pain (principal); Z87.891 Personal history of nicotine dependence; R11.2 Nausea with vomiting, unspecified
CPT/HCPCS: 36415; 74176; 80048; 80076; 81001; 83690; 84484; 85025; 96360; 96361; 99284

== ENCOUNTER 2023-08-02 14:37 | Outpatient (AMB) | payer OTHER, SELFPAY ==
--- NOTE | 2023-08-02 14:50 | A.OFFPC_ITS ---
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 Required: No Accompanied by: Self / Same As Patient Allergies nickel Allergy (Severe, Verified 08/02/23 15:15) Rash acetaminophen [Percocet] Allergy (Intermediate, Verified 08/02/23 15:15) vomiting cyclobenzaprine [CYCLOBENZAPRINE] Allergy (Intermediate, Verified 08/02/23 15:15) HEADACHE,DIZZINESS divalproex sodium [Depakote] Allergy (Intermediate, Verified 08/02/23 15:15) increase liver enzymes methocarbamol [METHOCARBAMOL] Allergy (Intermediate, Verified 08/02/23 15:15) TICS oxycodone [From PERCOCET] Allergy (Intermediate, Verified 08/02/23 15:15) VOMITING liraglutide [From Victoza] Adverse Reaction (Severe, Verified 08/02/23 15:15) hypoglycemia lisinopril Adverse Reaction (Severe, Verified 08/02/23 15:15) Dizziness risperidone [RISPERIDONE] Adverse Reaction (Severe, Verified 08/02/23 15:15) CHEST PAIN baclofen Adverse Reaction (Intermediate, Verified 08/02/23 15:15) Palpitations canagliflozin [Invokana] Adverse Reaction (Intermediate, Verified 08/02/23 15:15) confusion dulaglutide [Trulicity] Adverse Reaction (Intermediate, Verified 08/02/23 15:15) abdominal bloating, numbness, myalgia Narcotics Allergy (Mild, Uncoded 08/02/23 15:15) dizzy, sick Medication List - Last Reconciled 08/02/23 by An Aguilar MD albuterol sulfate 90 mcg/actuation 1 - 2 puffs inhalation Q4-6H PRN alpha lipoic acid 600 mg PO BIDAC blood pressure monitor As directed blood-glucose meter As directed blood-glucose meter (FreeStyle Lite Meter kit) test 3 times per day carisoprodol 350 mg PO DAILY PRN 30 days cholecalciferol (vitamin D3) 25 mcg PO DAILY 90 days cyanocobalamin (vitamin B-12) 1,000 mcg PO DAILY diazepam 10 mg PO BID PRN fenofibrate 54 mg PO DAILY 90 days ibuprofen 600 mg PO TID PRN 90 days insulin lispro (Humalog KwikPen U-200 Insulin) 20 units (0.1 mL) subcut BID 90 days linagliptin (Tradjenta) 5 mg PO DAILY melatonin 10 mg PO BEDTIME PRN melatonin-pyridoxine HCl (B6) 10-10 mg ER 1 tab PO BEDTIME PRN metformin 1,000 mg PO BID oxcarbazepine 600 mg PO BEDTIME pen needle, diabetic As directed pen needle, diabetic (Advocate Pen Needle) Use 1 pen needle once a day pen needle, diabetic, safety (Assure ID Pen Needle) Use 1 pen needle once a day vitamin B complex 1 tab PO DAILY Tobacco use date assessed: 10/01/22 Dental Screening Dental Screen Date: 08/02/23 Did you have a dental visit in the last 12 months?: Yes Did you have a dental problem in the last 6 months where you did not have access to dental care?: No Was dental information given to patient?: Patient has dentist HPI HPI Comments History of Present Illness Details This is a 63-year-old female with cirrhosis, diabetes mellitus type 2 on long-term current use of insulin and bipolar disorder that comes for her physical exam. She will be referred to Gastroenterology for cirrhosis. Last colonoscopy was 2013 and was normal. A1c elevated and will be referred to endocrinology. Insulin was increased. Has bipolar disorder that has been stable and is follow by Psychiatry. Last mammogram was 2022 and was normal. Last Pap smear was 2021 and was normal. COUNTS INCLUDE 234 BEDS AT THE [facility] Medical History (Updated 08/02/23 @ 15:41 by An Aguilar MD) Vaginal burning Vaginal itching Diabetes mellitus Basilar migraine Migraine with aura Hypertension Renal calculi Chest pain Shortness of breath Mixed hyperlipidemia Fibromyalgia Chronic neck pain Nickel allergy Nickel dermatitis Herpes simplex virus (HSV) infection Intertrigo Polyarthralgia Surgical History History of prior ablation treatment History of discectomy History of laparoscopy History of tubal ligation History of colonoscopy History of laparoscopic cholecystectomy History of section Family History Father Prostate cancer Diabetes High cholesterol HTN (hypertension) Mother Liver problem Diabetes High cholesterol HTN (hypertension) Family/Other Diabetes High cholesterol HTN (hypertension) Cancer Social History (Updated 08/02/23 @ 15:27 by An Aguilar MD) Household Members: Children Household Members Other:: Son Housing: Apartment Alcohol intake: former Patient Tobacco Use Status: Former Tobacco user Tobacco use type: Cigarette Years Smoked: 18 e-Cigarette/Vaping Use: Never Used Second Hand Smoke Exposure: No service: No Current occupational status: disabled Sexual orientation: Straight/Heterosexual Gender identity: Female Cognitive needs: No Hearing needs: No Vision needs: No Questionnaire Thrive Questionnaire Date Thrive assessed: 04/15/23 ABBY-7 AMB Questionnaire ABBY-7 Date ABBY - 7 assessed: 10/01/22 Source: Developed by Drs. Frank Kay, Drea Griggs, Diego Corcoran and colleagues, with an educational javier from [employer]. Review of Systems Const All systems reviewed & are unremarkable except as noted in HPI and below Eyes Reports no additional complaints, Denies change in vision and Denies other visual disturbances Card Denies chest pain at rest, Denies chest pain with activity, Denies edema, Denies irregular heart rhythm, Denies claudication, Denies dyspnea, Denies dyspnea on exertion, Denies orthopnea, Denies paroxysmal nocturnal dyspnea and Denies slow heart rate Resp Denies cough, Denies dyspnea and Denies dyspnea on exertion GI Denies abdominal pain, Denies change in bowel habits, Denies excessive flatus, Denies nausea and Denies vomiting Denies urinary incontinence, Denies urinary hesitancy and Denies urinary urgency Musc Denies abnormal gait, Denies atrophy, Denies deformity and Denies limited range of motion Skin/Breast Denies bleeding lesions, Denies changing lesions and Denies rash Neuro Denies abnormal gait and Denies lack of coordination Physical exam (Primary Care) Vital Signs: Last Vital Signs BP 132/86 08/02/23 14:51 BMI result Body Mass Index 28.1 Tobacco/Smoking Status: Tobacco use Status Tobacco use date assessed 10/01/22 08/02/23 14:50 Patient Tobacco Use Status Former Tobacco user 08/02/23 14:50 Tobacco use type Cigarette 08/02/23 14:50 e-Cigarette/Vaping Use Never Used 08/02/23 14:50 Thrive Assessment: Date of Thrive Assessment Date Thrive assessed 04/15/23 08/02/23 14:50 Const Orientation/consciousness: patient oriented x3 HENMT Head: Yes normal to inspection, Yes normocephalic and Yes atraumatic Ears: external ears normal Eyes General: appearance normal, both eyes and all related structures Eyelids: Yes eyelids normal Conjunctivae: conjunctivae normal Neck Neck: Yes normal visual inspection and Yes supple Resp Effort & Inspection: normal respiratory effort Auscultation: clear to auscultation bilaterally Cardio Jugular venous distension: no JVD Rate: regular rate Rhythm: regular rhythm Heart sounds: S1 normal heart sound present and S2 normal heart sound present GI Inspection: Yes normal to inspection Palpation (GI): Soft to palpation and nontender Auscultation: normal bowel sounds Skin General skin exam: no rashes or lesions noted Neuro General: patient oriented x3 and no focal motor deficits Extrem General: Yes full ROM Psych Appearance: grossly normal Office Procedures Flu Questionnaire Does the patient have a severe egg allergy?: No Results AMB Hemoglobin A1c AMB Hemoglobin A1c 10.2 % Last Edit by CHAI Washburn on 08/02/23 15: 09 Immunizations flu vacc [id number] 6mos up(PF) 60 mcg(15 mcgx4)/0.5 mL IM syringe Performing Provider: An Aguilar MD [facility] Documented (not given) by: CHAI Washburn on 08/02/23 14:50 Reason Not Given: Patient Refused Results Reviewed Results Reviewed: Laboratory Last Values Hgb A1c (Clinic) 10.2 % (4.0-6.0) H 08/02/23 15:08 Assessment and Plan Assessment & Plan (1) Physical exam: Code(s): Z00.00 - Encounter for general adult medical examination without abnormal findings Plan: Repeat in a year. (2) Cirrhosis: Code(s): K74.60 - Unspecified cirrhosis of liver Plan: Follow up with Gastroenterology. (3) Bipolar disorder: Code(s): F31.9 - Bipolar disorder, unspecified Plan: Follow-up with psychiatry. (4) Diabetes mellitus: Code(s): E11.9 - Type 2 diabetes mellitus without complications Qualifiers: Diabetes mellitus type: type 2 Diabetes mellitus intermission coordinator insulin use: with skilled nursing use Diabetes mellitus complication status: with hyperglycemia Qualified Code(s): E11.65 - Type 2 diabetes mellitus with hyperglycemia; Z79.4 - shelter (current) use of insulin Plan: Increase insulin. Referred to endocrinology. A1c goal is equal or less than 7%. Orders: Orders AMB Hemoglobin A1c Today E11.9 - Type 2 diabetes mellitus without complications ECG 12 lead EKG Today R07.9 - Chest pain, unspecified Microalbumin, Random (w Creat) Today E11.9 - Type 2 diabetes mellitus without complications Vitamin D 25-OH Total Today E55.9 - Vitamin D deficiency, unspecified Comprehensive [place]. Panel Fast Today E78.5 - Hyperlipidemia, unspecified Thyroid Stimulating Hormone Today R53.83 - Other fatigue Influenza [id number] Immunization Today Z23 - Encounter for immunization Lipid Panel Today E78.5 - Hyperlipidemia, unspecified Vitamin B12 and Folate Today E53.8 - Deficiency of other specified B group vitamins Referrals Gastroenterology Referral K74.60 - Unspecified cirrhosis of liver Endocrinology Referral E11.9 - Type 2 diabetes mellitus without complications Medications: Changed From insulin lispro (Humalog KwikPen U-200 Insulin) 20 units (0.1 mL) subcut BID 90 days 18 mL 3RF E11.65 - Type 2 diabetes mellitus with hyperglycemia, Z79.4 - shelter (current) use of insulin To insulin lispro (Humalog KwikPen U-200 Insulin) 20 units (0.1 mL) subcut TID 90 days 27 mL 3RF E11.65 - Type 2 diabetes mellitus with hyperglycemia, 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
[2023-08-02 14:51] VITALS: BP 132/86; BMI 28.1
== END 2023-08-02 15:36 | disposition home or self-care (01) ==
PROVIDERS: PCP Internal Medicine; Visit Provider Internal Medicine
DX: Z00.00 Encounter for general adult medical examination without abnormal findings (principal); K74.60 Unspecified cirrhosis of liver; F31.9 Bipolar disorder, unspecified; E11.65 Type 2 diabetes mellitus with hyperglycemia; Z79.4 Long term (current) use of insulin; E11.9 Type 2 diabetes mellitus without complications
CPT/HCPCS: 83036; 99396

== ENCOUNTER 2023-08-03 08:07 | Outpatient (REF) | payer OTHER, SELFPAY ==
--- NOTE | 2023-08-03 08:11 | ECG_ITS ---
Test Reason : chest pain Blood Pressure : / mmHG Vent. Rate : 079 BPM Atrial Rate : 079 BPM P-R Int : 148 ms QRS Dur : 078 ms QT Int : 372 ms P-R-T Axes : 060 -01 037 degrees QTc Int : 426 ms Normal sinus rhythm Normal ECG When compared with ECG of 13-APR-2023 17:36, No significant change was found Referred By: nA Aguilar Electronically Signed By:ROSI MCKEON MD
[2023-08-03 09:24] LABS: Alanine Aminotransferase 33 U/L (0-31); Alkaline Phosphatase 134 U/L (39-117); Anion Gap 14 (12-20); Aspartate Amino Transferase 31 U/L (5-31); Bilirubin Total 1.1 mg/dL (0.0-1.0); Blood Urea Nitrogen 6 mg/dL (9-16); Calcium 9.6 mg/dL (8.4-10.2); Carbon Dioxide 24 mmol/L (22-29); Chloride 103 mmol/L (96-108); Cholesterol 235 mg/dL (<200); Estimated Glomerular Filt Rate > 60; Glucose Fasting 299 mg/dL (60-99); HDL Cholesterol 36 mg/dL (>40); Potassium 4.1 mmol/L (3.3-5.1); Sodium 137 mmol/L (135-145); Total Protein 7.5 g/dL (6.5-8.0); Triglycerides 494 mg/dL (<150)
[2023-08-03 09:25] LABS: Creatinine Urine 109.72 mg/dL; Microalbum/Creatinine Ratio Ur 16.4 ug/mg cr (<30)
[2023-08-03 09:39] LABS: Vitamin D 25-OH Total 23.7 ng/mL (>30)
[2023-08-03 09:50] LABS: Vitamin B12 936 pg/mL (200-900)
== END 2023-08-03 08:08 | disposition home or self-care (01) ==
LOC: HO.LAB 08:07
PROVIDERS: PCP Internal Medicine; Visit Provider Internal Medicine
DX: R07.9 Chest pain, unspecified (principal); E55.9 Vitamin D deficiency, unspecified; R53.83 Other fatigue; E11.9 Type 2 diabetes mellitus without complications; E78.5 Hyperlipidemia, unspecified; E53.8 Deficiency of other specified B group vitamins
CPT/HCPCS: 36415; 80053; 80061; 82043; 82306; 82570; 82607; 82746; 84443; 93005

== ENCOUNTER 2023-09-06 10:11 | Outpatient (REF) | payer OTHER, SELFPAY ==
--- NOTE | ~2023-09-06 | MM_ITS ---
EXAMINATION: MM DIAGNOSTIC DIGITAL BREAST TOMOSYNTHESIS, BILATERAL CLINICAL INFORMATION: Diagnostic mammography 4 recommended short interval follow-up of left breast nodules and annual screening right breast. COMPARISON: Mammography: This study is compared with prior exams dating back to August 2022 . TECHNIQUE: Digital breast tomosynthesis is performed in both the craniocaudal and mediolateral oblique views along with computer-aided detection (CAD). Synthesized 2D images are generated from the tomosynthesis. FINDINGS: There are scattered areas of fibroglandular density (ACR BI-RADS breast composition Category b). There are no significant masses, abnormal calcifications, or other abnormalities. Since the prior examination, the deeper of the 2 focal asymmetries is now inconspicuous and the other slightly smaller. These represent a small intramammary lymph nodes which are normal findings. MM/MM tomosynthesis diagnostic BI IMPRESSION: There are no significant changes from prior study. ASSESSMENT: BI-RADS BI-RADS 1 - Negative RECOMMENDATION: 1 year F/U Results were provided to the patient at time of visit by the technologist. This patient's information was entered into a reminder system with a target due date for their next mammogram.
== END 2023-09-06 10:12 | disposition home or self-care (01) ==
LOC: HO.MAMMO 10:11
PROVIDERS: PCP Internal Medicine; Visit Provider Advanced Practice Midwife
DX: N64.89 Other specified disorders of breast (principal)
CPT/HCPCS: 77062; 77066

== ENCOUNTER → 2023-09-06 10:30 | Outpatient (BNV) | payer OTHER, SELFPAY | PROVIDERS: PCP Internal Medicine; Visit Provider Radiology Diagnostic Radiology | DX: R92.8 Other abnormal and inconclusive findings on diagnostic imaging of breast (principal) | CPT/HCPCS: 77062; 77066 ==

== ENCOUNTER 2023-12-02 13:18 | Outpatient (AMB) | payer OTHER, SELFPAY ==
[2023-12-02 13:52] VITALS: BP 126/70; BMI 27.9
--- NOTE | 2023-12-02 13:52 | MHC.PC.OV ---
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 Required: No Accompanied by: Self / Same As Patient Allergies nickel Allergy (Severe, Verified 12/02/23 14:08) Rash acetaminophen [Percocet] Allergy (Intermediate, Verified 12/02/23 14:08) vomiting cyclobenzaprine [CYCLOBENZAPRINE] Allergy (Intermediate, Verified 12/02/23 14:08) HEADACHE,DIZZINESS divalproex sodium [Depakote] Allergy (Intermediate, Verified 12/02/23 14:08) increase liver enzymes methocarbamol [METHOCARBAMOL] Allergy (Intermediate, Verified 12/02/23 14:08) TICS oxycodone [From PERCOCET] Allergy (Intermediate, Verified 12/02/23 14:08) VOMITING liraglutide [From Victoza] Adverse Reaction (Severe, Verified 12/02/23 14:08) hypoglycemia lisinopril Adverse Reaction (Severe, Verified 12/02/23 14:08) Dizziness risperidone [RISPERIDONE] Adverse Reaction (Severe, Verified 12/02/23 14:08) CHEST PAIN baclofen Adverse Reaction (Intermediate, Verified 12/02/23 14:08) Palpitations canagliflozin [Invokana] Adverse Reaction (Intermediate, Verified 12/02/23 14:08) confusion dulaglutide [Trulicity] Adverse Reaction (Intermediate, Verified 12/02/23 14:08) abdominal bloating, numbness, myalgia Narcotics Allergy (Mild, Uncoded 12/02/23 14:08) dizzy, sick Medication List - Last Reconciled 12/02/23 by An Aguilar MD albuterol sulfate 90 mcg/actuation 1 - 2 puffs inhalation Q4-6H PRN alpha lipoic acid 600 mg PO BIDAC blood pressure monitor As directed blood-glucose meter As directed blood-glucose meter (FreeStyle Lite Meter kit) test 3 times per day blood-glucose sensor ([employer] G7 Sensor device) As directed carisoprodol 350 mg PO DAILY PRN 30 days cholecalciferol (vitamin D3) 25 mcg PO DAILY 90 days cyanocobalamin (vitamin B-12) 1,000 mcg PO DAILY diazepam 10 mg PO BID PRN fenofibrate 54 mg PO DAILY 90 days flash glucose sensor (FreeStyle Avi 14 Day Sensor kit) As directed ibuprofen 600 mg PO TID PRN 90 days insulin lispro (Humalog KwikPen U-200 Insulin) 20 units (0.1 mL) subcut TID 90 days linagliptin (Tradjenta) 5 mg PO DAILY melatonin 10 mg PO BEDTIME PRN melatonin-pyridoxine HCl (B6) 10-10 mg ER 1 tab PO BEDTIME PRN oxcarbazepine 600 mg PO BEDTIME pen needle, diabetic As directed pen needle, diabetic (Advocate Pen Needle) Use 1 pen needle once a day pen needle, diabetic, safety (Assure ID Pen Needle) Use 1 pen needle once a day vitamin B complex 1 tab PO DAILY Tobacco use date assessed: 12/02/23 Dental Screening Dental Screen Date: 12/02/23 Did you have a dental visit in the last 12 months?: Yes Did you have a dental problem in the last 6 months where you did not have access to dental care?: No Was dental information given to patient?: Patient has dentist HPI HPI Comments History of Present Illness Details This is a 63 year old female with diabetes mellitus type 2 on detention current use of insulin, bipolar disorder, cirrhosis and hyperlipidemia that comes today for follow up on her conditions. A1c ont on goal and I will start her on long acting insulin in addition to Tradjenta and short acting insulin. Bipolar disorder stable with oxcarbazepine. Was refer to gastroenterology for cirrhosis and has not receive a call yet. LDL was not on goal the last time and this will be repeated. No chest pain or shortness of breath. [facility] Medical History (Updated 12/03/23 @ 12:11 by An Aguilar MD) Diabetes mellitus Vaginal burning Vaginal itching Diabetes mellitus Basilar migraine Migraine with aura Hypertension Renal calculi Chest pain Shortness of breath Mixed hyperlipidemia Fibromyalgia Chronic neck pain Nickel allergy Nickel dermatitis Herpes simplex virus (HSV) infection Intertrigo Polyarthralgia Surgical History History of prior ablation treatment History of discectomy History of laparoscopy History of tubal ligation History of colonoscopy History of laparoscopic cholecystectomy History of section Family History Father Prostate cancer Diabetes High cholesterol HTN (hypertension) Mother Liver problem Diabetes High cholesterol HTN (hypertension) Family/Other Diabetes High cholesterol HTN (hypertension) Cancer Social History Household Members: Children Household Members Other:: Son Housing: Apartment Alcohol intake: former Comment: pt refuses bed/chair alarm Patient Tobacco Use Status: Former Tobacco user Tobacco use type: Cigarette Years Smoked: 18 e-Cigarette/Vaping Use: Never Used Second Hand Smoke Exposure: No service: No Current occupational status: disabled Sexual orientation: Straight/Heterosexual Gender identity: Female Cognitive needs: No Hearing needs: No Vision needs: No Questionnaire PHQ-9 Over the last 2 weeks, how often have you been bothered by any of the following problems? 1. Little interest or pleasure in doing things: not at all 2. Feeling down, depressed, or hopeless: several days 3. Trouble falling or staying asleep, or sleeping too much: several days 4. Feeling tired or having little energy: several days 5. Poor appetite or overeating: not at all 6. Feeling bad about yourself - or that you are a failure or have let yourself or your family down: not at all 7. Trouble concentrating on things, such as reading the newspaper or watching television: not at all 8. Moving or speaking so slowly that other people could have noticed. Or the opposite - being so fidgety or restless that you have been moving around a lot more than usual: not at all 9. Thoughts that you would be better off or of hurting yourself in some way: not at all Total score: 3 Depression Screening Interpretation: Negative Depression Screening Done: Yes 28204 - PHQ-9 Billing: Yes Source: Developed by Drs. Frank Kay, Drea Griggs, Diego Corcoran and colleagues, with an educational javier from [employer]. Thrive Questionnaire Date Thrive assessed: 12/02/23 I am a: Patient What is your living situation today?: I have a steady place to live Within the past 12 months, did the food you bought not last and you didn't have the money to get more?: Never true Within the past 12 months, did you worry whether your food would run out before you got money to buy more?: Never true Do you have trouble paying for medicines?: No Do you have trouble getting transportation to medical appointments?: No Do you have trouble paying your heating and electricity bill?: No Do you have trouble taking care of your child, family member or friend?: No Do you have trouble with day-to-day activities such as bathing, preparing meals, shopping, managing finances, etc.?: No Are you currently unemployed and looking for a job?: No Are you interested in more education?: No Please select the resources that you would like help with: None Currently or been in a relationship where the following occur: no concerns reported THRIVE Score: 0 AUDIT C Alcohol Use Questionnaire (AUDIT-C) 1. How often do you have a drink containing alcohol?: Never Total Score: 0 ABBY-7 AMB Questionnaire ABBY-7 Date ABBY - 7 assessed: 12/02/23 Feeling nervous, anxious, or on edge: 1 = Several days Not being able to stop or control worryin = Not at all Worrying too much about different things: 1 = Several days Trouble relaxin = Not at all Being so restless that it is hard to sit still: 0 = Not at all Becoming easily annoyed or irritable: 0 = Not at all Feeling afraid as if something awful might happen: 0 = Not at all Total ABBY-7 score (0-4 normal; 5-9 mild; 10-14 moderate; 15-21 severe): 2 Source: Developed by Drs. Frank Kay, Drea Griggs, Diego Corcoran and colleagues, with an educational javier from [employer]. ABBY-7 Assessment Billing ABBY-7 Assessment Tool: ABBY-7 Assessment 54506 Review of Systems Const All systems reviewed & are unremarkable except as noted in HPI and below Eyes Reports no additional complaints, Denies change in vision and Denies other visual disturbances Card Denies chest pain at rest, Denies chest pain with activity, Denies edema, Denies irregular heart rhythm, Denies claudication, Denies dyspnea, Denies dyspnea on exertion, Denies orthopnea, Denies paroxysmal nocturnal dyspnea and Denies slow heart rate Resp Denies cough, Denies dyspnea and Denies dyspnea on exertion GI Denies abdominal pain, Denies change in bowel habits, Denies excessive flatus, Denies nausea and Denies vomiting Denies urinary incontinence, Denies urinary hesitancy and Denies urinary urgency Musc Denies atrophy, Denies deformity and Denies limited range of motion Physical exam (Primary Care) Vital Signs: Last Vital Signs BP 126/70 12/02/23 13:52 BMI result Body Mass Index 27.9 Tobacco/Smoking Status: Tobacco use Status Tobacco use date assessed 12/02/23 12/02/23 13:59 Patient Tobacco Use Status Former Tobacco user 12/02/23 13:59 Tobacco use type Cigarette 12/02/23 13:59 e-Cigarette/Vaping Use Never Used 12/02/23 13:59 PHQ-9: PHQ-9 Score PHQ-9: Total score 3 12/02/23 14:26 Depression Screening Interpretation: Negative Thrive Assessment: Date of Thrive Assessment Date Thrive assessed 12/02/23 12/02/23 13:59 Currently or been in a relationship where the following occur: no concerns reported Eyes General: appearance normal, both eyes and all related structures Eyelids: Yes eyelids normal Conjunctivae: conjunctivae normal Neck Neck: Yes normal visual inspection and Yes supple Resp Effort & Inspection: normal respiratory effort Auscultation: clear to auscultation bilaterally Cardio Jugular venous distension: no JVD Rate: regular rate Rhythm: regular rhythm Heart sounds: S1 normal heart sound present and S2 normal heart sound present Extrem General: Yes full ROM Results AMB Hemoglobin A1c AMB Hemoglobin A1c 14 % Last Edit by CHAI Washburn on 12/02/23 14:00 Results Reviewed Results Reviewed: Laboratory Last Values Hgb A1c (Clinic) 14 % (4.0-6.0) H 12/02/23 13:47 Assessment and Plan Assessment & Plan (1) Bipolar disorder: Code(s): F31.9 - Bipolar disorder, unspecified Plan: Continue oxcarbazepine. (2) Cirrhosis: Code(s): K74.60 - Unspecified cirrhosis of liver Plan: Follow up with gastroenterology. (3) Long-term current use of insulin for diabetes mellitus: Code(s): Z79.4 - [facility] (current) use of insulin; E11.9 - Type 2 diabetes mellitus without complications Plan: Start long acting insulin. Continue short acting insulin. Continue Tradjenta. A1c goal is equal or less than 7 %. (4) Hyperlipidemia LDL goal <70: Code(s): E78.5 - Hyperlipidemia, unspecified Plan: Continue fibrates. Repeat lipid panel. LDL goal is less than 70. Orders: Orders Comprehensive [place]. Panel Fast 12/02/23 E11.9 - Type 2 diabetes mellitus without complications, Z79.4 - [facility] (current) use of insulin AMB Hemoglobin A1c 12/02/23 E11.9 - Type 2 diabetes mellitus without complications US abdomen complete 12/02/23 R10.9 - Unspecified abdominal pain Lipid Panel 12/02/23 E78.5 - Hyperlipidemia, unspecified Microalbumin, Random (w Creat) 12/02/23 E11.9 - Type 2 diabetes mellitus without complications Vitamin D 25-OH Total 12/02/23 E55.9 - Vitamin D deficiency, unspecified Medications: New insulin degludec ([employer] FlexTouch U-100 insulin) 10 units (0.1 mL) subcut DAILY 90 days 9 mL 1RF E11.9 - Type 2 diabetes mellitus without complications Refilled carisoprodol 350 mg PO DAILY 30 days PRN 30 tabs 0RF Muscle Spasm Coding Level of Care Code Est Pt Level 4 (17179) Diagnoses Bipolar disorder F31.9 Cirrhosis K74.60 Long-term current use of insulin for diabetes mellitus Z79.4; E11.9 Hyperlipidemia LDL goal <70 E78.5 Additional Codes ABBY-7 Assessment Billing - ABBY-7 Assessment Tool: ABBY-7 Assessment [id number] ([id number]) Time Spent (min) 24
== END 2023-12-02 14:28 | disposition home or self-care (01) ==
PROVIDERS: PCP Internal Medicine; Visit Provider Internal Medicine
DX: E11.69 Type 2 diabetes mellitus with other specified complication (principal); F31.9 Bipolar disorder, unspecified; K74.60 Unspecified cirrhosis of liver; Z79.4 Long term (current) use of insulin; E78.5 Hyperlipidemia, unspecified
CPT/HCPCS: 83036; 99214

== ENCOUNTER 2023-12-08 08:30 | Outpatient (REF) | payer OTHER, SELFPAY ==
--- NOTE | ~2023-12-08 | US_ITS ---
EXAMINATION: US ABDOMEN COMPLETE CLINICAL INFORMATION: Unspecified abdominal pain. COMPARISON: CT abdomen and pelvis 08/01/2023. Ultrasound abdomen complete 08/19/2022 and 11/26/2020. X-ray KUB 11/11/2021. TECHNIQUE: Real-time imaging of the abdominal viscera. FINDINGS: PANCREAS: Normal. ABDOMINAL AORTA: The proximal, mid, and distal segments are normal in caliber. INFERIOR VENA CAVA: Visualized portions are normal. LIVER: The liver is enlarged. The liver contour is normal. Diffusely increased liver echogenicity. No focal hepatic lesion. There is no intrahepatic biliary duct dilatation seen. GALLBLADDER: Surgically absent. COMMON BILE DUCT: Normal in caliber measuring 0.38 cm in diameter. RIGHT KIDNEY: Normal. No hydronephrosis. No renal calculi or focal parenchymal lesions. The kidney measures 10.6 cm in maximum dimension. LEFT KIDNEY: 1.6 cm simple appearing midpole cyst, stable. No hydronephrosis or renal calculi. The kidney measures 11.3 cm in maximum dimension. SPLEEN: Normal. The spleen measures 11.3 cm in maximum dimension. FREE FLUID: None. US/US abdomen complete IMPRESSION: 1. Diffusely increased liver echogenicity. This is a nonspecific finding but most suggestive of hepatic steatosis. Correlation with liver enzymes recommended. 2. Stable 1.6 cm left renal cyst.
[2023-12-08 10:55] LABS: Creatinine Urine 35.59 mg/dL; Microalbum/Creatinine Ratio Ur 33.7 ug/mg cr (<30)
[2023-12-08 10:58] LABS: Alanine Aminotransferase 29 U/L (0-31); Albumin Level 4.1 g/dL (3.5-5.0); Alkaline Phosphatase 199 U/L (39-117); Anion Gap 12 (12-20); Aspartate Amino Transferase 27 U/L (5-31); Bilirubin Total 0.8 mg/dL (0.0-1.0); Blood Urea Nitrogen 9 mg/dL (9-16); Calcium 9.5 mg/dL (8.4-10.2); Carbon Dioxide 25 mmol/L (22-29); Chloride 102 mmol/L (96-108); Cholesterol 258 mg/dL (<200); Estimated Glomerular Filt Rate > 60; HDL Cholesterol 36 mg/dL (>40); Potassium 3.9 mmol/L (3.3-5.1); Sodium 135 mmol/L (135-145); Total Protein 7.8 g/dL (6.5-8.0); Triglycerides 526 mg/dL (<150)
[2023-12-08 11:04] LABS: Glucose Fasting 423 mg/dL (60-99)
[2023-12-08 11:16] LABS: Vitamin D 25-OH Total 20.8 ng/mL (>30)
== END 2023-12-08 08:31 | disposition home or self-care (01) ==
LOC: HO.US 08:30
PROVIDERS: PCP Internal Medicine; Visit Provider Internal Medicine
DX: R10.9 Unspecified abdominal pain (principal); E78.5 Hyperlipidemia, unspecified; E55.9 Vitamin D deficiency, unspecified; E11.9 Type 2 diabetes mellitus without complications; Z79.4 Long term (current) use of insulin
CPT/HCPCS: 36415; 76700; 80053; 80061; 82043; 82306; 82570

== ENCOUNTER 2024-01-20 14:20 | Outpatient (REF) | payer OTHER, SELFPAY ==
[2024-01-20 15:52] LABS: Ammonia 49 umol/L (13-55)
[2024-01-20 16:06] LABS: Gamma Glutamyl Transpeptidase 142 U/L (7-33)
[2024-01-20 16:21] LABS: Ferritin 249 ng/mL (10-250); TSH reflex Free T4 1.15 uIU/mL (0.32-4.0)
[2024-01-21 08:30] LABS: Hepatitis B Core Antibody Nonreactive (Nonreactive); ~Hepatitis A Antibody IgM Nonreactive (Nonreactive)
[2024-01-21 08:46] LABS: HBc Num1 0.15 S/CO (0.00-0.79); HBsAGNum1 0.24 S/CO (0.00-0.99); HIV AB/AG Nonreactive (Nonreactive); HIV Num 1 0.09 S/CO (0.00-0.99); Hepatitis A Antibody IgM 0.23 Index (0-0.79); Hepatitis B Surface Antigen Negative (Negative); ~HepC Num1 0.69 S/CO (0.00-0.79); ~Hepatitis B Surface Antibody NONREACTIVE (Nonreactive); ~Hepatitis C Antibody Nonreactive (Nonreactive)
[2024-01-21 13:43] LABS: Alpha Fetoprotein 8.6 ng/mL
[2024-01-23 10:28] LABS: Anti Nuclear Antibody Screen NEGATIVE (NEGATIVE)
[2024-01-24 11:23] LABS: Mitochondrial Antibodies NEGATIVE (NEGATIVE)
[2024-01-26 13:53] LABS: Smooth Muscle Antibody <20 U (<20)
[2024-02-01 18:49] LABS: FIB-ALT 29 U/L (6-29); FIB-Alpha-2-Macroglobulin 371 mg/dL (106-279); FIB-Apolipoprotein A1 141 mg/dL (101-198); FIB-GGT 120 U/L (3-65); FIB-Haptoglobin 54 mg/dL (43-212); FIB-Total Bilirubin 0.7 mg/dL (0.2-1.2); Liver Fibrosis Score 0.81; Liver Fibrosis Stage F4; Nec Inflam Act Grade A0-A1; Nec Inflam Act Score 0.26
== END 2024-01-20 14:21 | disposition home or self-care (01) ==
LOC: HO.LAB 14:20
PROVIDERS: PCP Internal Medicine; Visit Provider Nurse Practitioner
DX: K74.60 Unspecified cirrhosis of liver (principal); K21.9 Gastro-esophageal reflux disease without esophagitis; K86.1 Other chronic pancreatitis
CPT/HCPCS: 36415; 81596; 82105; 82140; 82728; 82977; 84443; 86015; 86038; 86381; 86704; 86706; 86709; 86803; 87340; 87389; 99202

== ENCOUNTER 2024-01-20 14:20 | Outpatient (AMB) | payer OTHER, SELFPAY ==
[2024-01-20 14:26] VITALS: BP 138/96; PULSE 105; BMI 28.8
--- NOTE | 2024-01-20 14:26 | A.OFFVIS_ITS ---
Vital Signs 01/20/24 14:26 Height 4 ft 10 in Weight 138 lb BMI 28.8 BP 138/96 H Blood Pressure Location Lt brachial Position Sitting Pulse 105 H Intake Visit Reasons: Cirrhosis/seen in 2020 Intake Note: Patient in office today as a new patient for cirrhosis. CC: Patient c/o abdominal pain after eating, occasional constipation, and blood when she wipes. Car Pick Up Driver Required: No Accompanied by: Self / Same As Patient Allergies nickel Allergy (Severe, Verified 01/20/24 14:35) Rash Penicillins Allergy (Severe, Verified 01/20/24 14:35) Hives acetaminophen [Percocet] Allergy (Intermediate, Verified 01/20/24 14:35) vomiting cyclobenzaprine [CYCLOBENZAPRINE] Allergy (Intermediate, Verified 01/20/24 14:35) HEADACHE,DIZZINESS divalproex sodium [Depakote] Allergy (Intermediate, Verified 01/20/24 14:35) increase liver enzymes methocarbamol [METHOCARBAMOL] Allergy (Intermediate, Verified 01/20/24 14:35) TICS oxycodone [From PERCOCET] Allergy (Intermediate, Verified 01/20/24 14:35) VOMITING liraglutide [From Victoza] Adverse Reaction (Severe, Verified 01/20/24 14:35) hypoglycemia lisinopril Adverse Reaction (Severe, Verified 01/20/24 14:35) Dizziness risperidone [RISPERIDONE] Adverse Reaction (Severe, Verified 01/20/24 14:35) CHEST PAIN baclofen Adverse Reaction (Intermediate, Verified 01/20/24 14:35) Palpitations canagliflozin [Invokana] Adverse Reaction (Intermediate, Verified 01/20/24 14:35) confusion dulaglutide [Trulicity] Adverse Reaction (Intermediate, Verified 01/20/24 14:35) abdominal bloating, numbness, myalgia Narcotics Allergy (Mild, Uncoded 12/02/23 14:08) dizzy, sick HPI HPI Cirrhosis/seen in 2020: Details: Assessment & Plan (1) Chronic pancreatitis: Code(s): K86.1 - Other chronic pancreatitis Category: Medical Plan - DANIEL Andrea: This patient was last seen by myself in 2018 and seemingly was lost to follow- up. She no showed for her last appointment. HE TELLS ME that she has developed generalized abdominal pain that feels throbbing in nature and moves all around her abdomen. The only thing that seems to help the pain is putting ice on her belly or Vicks Vaporub. She has also developed some rectal bleeding with red blood on the toilet tissue when she moves her bowels. She is status post cholecystectomy and she is complaining of diarrhea and sometimes having fecal incontinence. Apparently, the Creon was never covered by insurance but in speaking with her she does not think she has ever been treated with Carafate or cholestyramine. 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 Apparently she had quite a lot of polypharmacy going on and went to down from double digit meds to just 5. We may need to consider something to help her with this going forward but 1st will get a colonoscopy as she had 1 in 2013 and was supposed to repeat this in 5 years. I also suggest an ultrasound of her abdomen so I can get a feel for whether she has stool impaction or any other severe pathology going on. Her description of a pounding pain does make me somewhat worried about possible AAA. She is agreeable to this study and I think it is a good way to take a low go it might be going on with her. She does admit she has gained a lot of weight because she has not been able to be active (she likes to run high etc) and she is getting a little stir crazy staying at home. However, she is very fearful of COVID-19 and really does not want to come out with there is any crowds. This likely has contributed to why she was lost to follow-up. She requests a female endoscopist in the past she has seen Dr. Turcios but she is also agreeable to have Dr. Dugan do the procedure. She is agreeable to a follow-up after her ultrasound. (2) GERD (gastroesophageal reflux disease): Code(s): K21.9 - Gastro-esophageal reflux disease without esophagitis Category: Medical (3) Abdominal pain: Code(s): R10.9 - Unspecified abdominal pain Category: Medical Orders: Orders: US abdomen complete Today (4) Hemorrhoids: Code(s): K64.9 - Unspecified hemorrhoids Category: Medical Medications: New: hydrocortisone 2.5% (Proctosol HC) 1 appl CO BID PRN 30 grams 0RF hemorrhoids (5) History of laparoscopic cholecystectomy: Comment: 11/2014 Code(s): Z90.49 - Acquired absence of other specified parts of digestive tract Category: Surgical (6) Diarrhea: Code(s): R19.7 - Diarrhea, unspecified Category: [facility] LABS: Laboratory Tests 08/03/23 12/02/23 12/08/23 08:30 13:47 09:41 Estimated GFR > 60 Hgb A1c (Clinic) 14 H Total Bilirubin 0.8 AST 27 ALT 29 Alkaline Phosphatase 199 H TSH 3.10 ULTRASOUND OF THE ABDOMEN ORDERED BY PCP 12/10/23 FINDINGS: PANCREAS: Normal. ABDOMINAL AORTA: The proximal, mid, and distal segments are normal in caliber. INFERIOR VENA CAVA: Visualized portions are normal. LIVER: The liver is enlarged. The liver contour is normal. Diffusely increased liver echogenicity. No focal hepatic lesion. There is no intrahepatic biliary duct dilatation seen. GALLBLADDER: Surgically absent. COMMON BILE DUCT: Normal in caliber measuring 0.38 cm in diameter. RIGHT KIDNEY: Normal. No hydronephrosis. No renal calculi or focal parenchymal lesions. The kidney measures 10.6 cm in maximum dimension. LEFT KIDNEY: 1.6 cm simple appearing midpole cyst, stable. No hydronephrosis or renal calculi. The kidney measures 11.3 cm in maximum dimension. SPLEEN: Normal. The spleen measures 11.3 cm in maximum dimension. FREE FLUID: None. US/US abdomen complete IMPRESSION: 1. Diffusely increased liver echogenicity. This is a nonspecific finding but most suggestive of hepatic steatosis. Correlation with liver enzymes recommended. 2. Stable 1.6 cm left renal cyst. CT ABDOMEN AND PELVIS 08/01/23 FINDINGS: LUNG BASES: The visualized lung bases are unremarkable. LIVER, GALLBLADDER, AND BILIARY TREE: The liver is heterogeneous in attenuation and irregular in contour. There is no focal consolidation. There is no intrahepatic biliary duct dilatation. There has been a prior cholecystectomy. PANCREAS: Unremarkable. SPLEEN: Spleen is mildly enlarged measuring up to 14 cm. ADRENAL GLANDS: There bilateral adrenal gland thickening and a 1.4 cm left adrenal nodule.. KIDNEYS AND URETERS: The kidneys are normal in size, shape, and attenuation. There is a 3 mm nonobstructing calculus lower pole left kidney. There is a 1.7 cm cyst upper pole left kidney. There is no hydronephrosis. BLADDER: Unremarkable. GASTROINTESTINAL TRACT: The small and large bowel are unremarkable. The appendix is unremarkable. ABDOMINAL WALL: No significant hernia is appreciated. LYMPH NODES: Normal. VASCULAR: Unremarkable. PELVIC VISCERA: Unremarkable. OSSEOUS STRUCTURES: Unremarkable. CT/CT abdomen pelvis wo IV con IMPRESSION: Heterogeneous irregular liver consistent with hepatocellular disease/cirrhosis. There is mild associated splenomegaly. Obstructing calculus lower pole left kidney. TODAY'S VISIT This patient was last seen by myself in 2018 and seemingly was lost to follow- up. She no showed for her last appointment. It appears she is being referred for a new problem of cirrhosis. THIS IS A DIABETIC WITH VERY POOR GLUCOSE control her last hemoglobin A1c being over 14%. She says her mother and father of liver failure and were alcoholics. 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 She has a know hx o fNASH, and the big immediately clear variable is her diabetes control. She say a field logistics coordinator but this person scared her and threw too much at me too fast. This made her cry. She is on humalog for diabetes. She can not use some meds like ozempic r/ ther chronic pancreatitis. She IS on Tradjenta. She used to be seen at [facility], but they no longer take her insurance. She tells me that she went to [place] and was dx'ed with a severe Nickel allergy - and she has to avoid many foods. This makes her diet tough. (she likes Adalgisa Hargrove!). I will get some additional tests to make sure there is no other reversible process but the biggest reversible factor controlling the progression of her liver disease is going to be controlling her diabetes. I let her know that since her weight is fairly well controlled and she does not drink this is the 1 modifiable component that needs to be approached. However, given her multiple challenges and insurance limitations her primary care doctor will need to be involved in getting her the appropriate care. WILLIE 4 weeks. [facility] Medical History (Updated 01/20/24 @ 16:34 by DANIEL Andrea) Physical exam Vaginal burning Vaginal itching Basilar migraine Hyperlipidemia LDL goal <70 Acute vaginitis Encounter for annual routine gynecological examination Hospital discharge follow-up Shortness of breath COVID-19 Dysuria Vaginal irritation Herpes simplex virus (HSV) infection Intertrigo Diabetes mellitus Diabetes mellitus Migraine with aura Hypertension Renal calculi Chest pain Mixed hyperlipidemia Fibromyalgia Chronic neck pain Nickel allergy Nickel dermatitis Polyarthralgia Surgical History H/O esophagogastroduodenoscopy History of prior ablation treatment History of discectomy History of laparoscopy History of tubal ligation History of colonoscopy History of laparoscopic cholecystectomy History of section Family History Father Prostate cancer Diabetes High cholesterol HTN (hypertension) Mother Liver problem Diabetes High cholesterol HTN (hypertension) Family/Other Diabetes High cholesterol HTN (hypertension) Cancer Social History Household Members: Children Household Members Other:: Son Housing: Apartment Alcohol intake: former Comment: pt refuses bed/chair alarm Patient Tobacco Use Status: Former Tobacco user Tobacco use type: Cigarette Years Smoked: 18 e-Cigarette/Vaping Use: Never Used Second Hand Smoke Exposure: No service: No Current occupational status: disabled Sexual orientation: Straight/Heterosexual Gender identity: Female Cognitive needs: No Hearing needs: No Vision needs: No Review of Systems Const Denies fatigue, Denies fever(s), Denies night sweats, Denies poor appetite and Denies weight loss ENT Reports Normal hearing present, Denies dental pain, Denies dysphagia, Denies hearing loss, Denies mouth pain, Denies odynophagia, Denies throat swelling, Denies tongue swelling and Reports other (Dentition adequate) Card Reports no additional complaints Resp Reports no additional complaints GI Details: Denies abdominal pain, Denies melena, Denies bloating, Denies hematochezia, Denies constipation, Denies GI cramping, Denies dysphagia, Denies excessive flatus, Denies early satiety, Denies heartburn, Denies diarrhea, Denies nausea, Denies odynophagia, Denies vomiting and Denies hematemesis Skin/Breast Denies pruritus, Denies lesions, Denies rash and Denies jaundice Neuro Reports Normal hearing present and Denies Abnormal speech present Endo Denies fatigue Aller/Immun Denies throat swelling and Denies tongue swelling Physical Exam Vital Signs: Last Vital Signs Pulse 105 H 01/20/24 14:26 BP 138/96 H 01/20/24 14:26 BMI result Body Mass Index 28.8 Const General: cooperative, no acute distress, well developed and well groomed Nutritional Appearance: average body habitus and well nourished Orientation/consciousness: oriented to person, oriented to place and oriented to time Limitations: No language barrier HEENT Head: Yes normocephalic and Yes atraumatic Eyes General: appearance normal, both eyes and all related structures Pupils: Equal, round and reactive pupils present Neck Neck: Yes normal visual inspection and Yes no lymphadenopathy Thyroid: Thyroid normal Resp Effort & Inspection: normal respiratory effort and able to speak in complete sentences Auscultation: clear to auscultation bilaterally Cardio Rate: regular rate Rhythm: regular rhythm Heart sounds: Normal, physiologic split S2 sound present Peripheral pulses: radial pulses present and posterior tibial pulses present GI Inspection: No distended, No Abdominal panniculus present and Yes obesity Palpation (GI): Soft to palpation, nontender, no guarding, not rigid and No hepatosplenomegaly present Percussion: Yes normal to percussion Auscultation: normal bowel sounds Rectal Exam - Female: deferred Skin General skin exam: no rashes or lesions noted, turgor normal, skin not dry, no jaundice, No spider nevi and no striae Rashes: no rashes Nails: normal Neuro General: oriented to person, oriented to place and oriented to time Cranial nerves: Yes Equal, round and reactive pupils present and Yes Normal hear ing present Speech: No Abnormal speech present Extrem General: Yes normal to inspection, No clubbing, No cyanosis and No edema Psych Appearance: grossly normal and well kempt Mental Status: mental status grossly normal Speech and movement: Normal speech and movement present Affect: normal affect Attitude: cooperative Thought process: Normal thought process present and not confabulating Thought content: Normal thought content present Insight: Limited insight present (Psych) Judgement: Limited judgement present (Psych) Results Reviewed Results Reviewed: Laboratory Tests 08/03/23 12/02/23 12/08/23 08:30 13:47 09:41 Estimated GFR > 60 Hgb A1c (Clinic) 14 H Total Bilirubin 0.8 AST 27 ALT 29 Alkaline Phosphatase 199 H TSH 3.10 ULTRASOUND OF THE ABDOMEN ORDERED BY PCP 12/10/23 FINDINGS: PANCREAS: Normal. ABDOMINAL AORTA: The proximal, mid, and distal segments are normal in caliber. INFERIOR VENA CAVA: Visualized portions are normal. LIVER: The liver is enlarged. The liver contour is normal. Diffusely increased liver echogenicity. No focal hepatic lesion. There is no intrahepatic biliary duct dilatation seen. GALLBLADDER: Surgically absent. COMMON BILE DUCT: Normal in caliber measuring 0.38 cm in diameter. RIGHT KIDNEY: Normal. No hydronephrosis. No renal calculi or focal parenchymal lesions. The kidney measures 10.6 cm in maximum dimension. LEFT KIDNEY: 1.6 cm simple appearing midpole cyst, stable. No hydronephrosis or renal calculi. The kidney measures 11.3 cm in maximum dimension. SPLEEN: Normal. The spleen measures 11.3 cm in maximum dimension. FREE FLUID: None. US/US abdomen complete IMPRESSION: 1. Diffusely increased liver echogenicity. This is a nonspecific finding but most suggestive of hepatic steatosis. Correlation with liver enzymes recommended. 2. Stable 1.6 cm left renal cyst. CT ABDOMEN AND PELVIS 08/01/23 FINDINGS: LUNG BASES: The visualized lung bases are unremarkable. LIVER, GALLBLADDER, AND BILIARY TREE: The liver is heterogeneous in attenuation and irregular in contour. There is no focal consolidation. There is no intrahepatic biliary duct dilatation. There has been a prior cholecystectomy. PANCREAS: Unremarkable. SPLEEN: Spleen is mildly enlarged measuring up to 14 cm. ADRENAL GLANDS: There bilateral adrenal gland thickening and a 1.4 cm left adrenal nodule.. KIDNEYS AND URETERS: The kidneys are normal in size, shape, and attenuation. There is a 3 mm nonobstructing calculus lower pole left kidney. There is a 1.7 cm cyst upper pole left kidney. There is no hydronephrosis. BLADDER: Unremarkable. GASTROINTESTINAL TRACT: The small and large bowel are unremarkable. The appendix is unremarkable. ABDOMINAL WALL: No significant hernia is appreciated. LYMPH NODES: Normal. VASCULAR: Unremarkable. PELVIC VISCERA: Unremarkable. OSSEOUS STRUCTURES: Unremarkable. CT/CT abdomen pelvis wo IV con IMPRESSION: Heterogeneous irregular liver consistent with hepatocellular disease/cirrhosis. There is mild associated splenomegaly. Obstructing calculus lower pole left kidney. Assessment & Plan Assessment & Plan (1) Cirrhosis: Comment: BASELINE LABS 01/2018: Total bilirubin 0.6, alk-phos elevated at 134, AST/ALT 37/44, CURRENT LABS 08/03/2303/ 08:3013:[id number]:41 Estimated GFR > 60 Hgb A1c (Clinic) 14 H Total Bilirubin 0.8 AST 27 ALT 29 Alkaline Phosphatase 199 H TSH 3.10 ULTRASOUND OF THE ABDOMEN ORDERED BY PCP 12/10/23 FINDINGS: PANCREAS: Normal. ABDOMINAL AORTA: The proximal, mid, and distal segments are normal in caliber. INFERIOR VENA CAVA: Visualized portions are normal. LIVER: The liver is enlarged. The liver contour is normal. Diffusely increased liver echogenicity. No focal hepatic lesion. There is no intrahepatic biliary duct dilatation seen. GALLBLADDER: Surgically absent. COMMON BILE DUCT: Normal in caliber measuring 0.38 cm in diameter. RIGHT KIDNEY: Normal. No hydronephrosis. No renal calculi or focal parenchymal lesions. The kidney measures 10.6 cm in maximum dimension. LEFT KIDNEY: 1.6 cm simple appearing midpole cyst, stable. No hydronephrosis or renal calculi. The kidney measures 11.3 cm in maximum dimension. SPLEEN: Normal. The spleen measures 11.3 cm in maximum dimension. FREE FLUID: None. US/US abdomen complete IMPRESSION: 1. Diffusely increased liver echogenicity. This is a nonspecific finding but most suggestive of hepatic steatosis. Correlation with liver enzymes recommended. 2. Stable 1.6 cm left renal cyst. CT ABDOMEN AND PELVIS 08/01/23 FINDINGS: LUNG BASES: The visualized lung bases are unremarkable. LIVER, GALLBLADDER, AND BILIARY TREE: The liver is heterogeneous in attenuation and irregular in contour. There is no focal consolidation. There is no intrahepatic biliary duct dilatation. There has been a prior cholecystectomy. PANCREAS: Unremarkable. SPLEEN: Spleen is mildly enlarged measuring up to 14 cm. ADRENAL GLANDS: There bilateral adrenal gland thickening and a 1.4 cm left adrenal nodule.. KIDNEYS AND URETERS: The kidneys are normal in size, shape, and attenuation. There is a 3 mm nonobstructing calculus lower pole left kidney. There is a 1.7 cm cyst upper pole left kidney. There is no hydronephrosis. BLADDER: Unremarkable. GASTROINTESTINAL TRACT: The small and large bowel are unremarkable. The appendix is unremarkable. ABDOMINAL WALL: No significant hernia is appreciated. LYMPH NODES: Normal. VASCULAR: Unremarkable. PELVIC VISCERA: Unremarkable. OSSEOUS STRUCTURES: Unremarkable. CT/CT abdomen pelvis wo IV con IMPRESSION: Heterogeneous irregular liver consistent with hepatocellular disease/cirrhosis. There is mild associated splenomegaly. Obstructing calculus lower pole left kidney. Code(s): K74.60 - Unspecified cirrhosis of liver Category: Medical (2) GERD (gastroesophageal reflux disease): Code(s): K21.9 - Gastro-esophageal reflux disease without esophagitis Category: Medical Qualifiers: Esophagitis presence: esophagitis presence not specified Qualified Code(s): K21.9 - Gastro-esophageal reflux disease without esophagitis (3) Chronic pancreatitis: Code(s): K86.1 - Other chronic pancreatitis Category: Medical Plan This patient was last seen by myself in 2018 and seemingly was lost to follow- up. She no showed for her last appointment. It appears she is being referred for a new problem of cirrhosis. THIS IS A DIABETIC WITH VERY POOR GLUCOSE control her last hemoglobin A1c being over 14%. She says her mother and father of liver failure and were alcoholics. 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 She has a know hx o fNASH, and the big immediately clear variable is her diabetes control. She say a field logistics coordinator but this person scared her and threw too much at me too fast. This made her cry. She is on humalog for diabetes. She can not use some meds like ozempic r/ ther chronic pancreatitis. She IS on Tradjenta. She used to be seen at [facility], but they no longer take her insurance. She tells me that she went to [place] and was dx'ed with a severe Nickel allergy - and she has to avoid many foods. This makes her diet tough. (she likes Adalgisa Hargrove!). I will get some additional tests to make sure there is no other reversible process but the biggest reversible factor controlling the progression of her liver disease is going to be controlling her diabetes. I let her know that since her weight is fairly well controlled and she does not drink this is the 1 modifiable component that needs to be approached. However, given her multiple challenges and insurance limitations her primary care doctor will need to be involved in getting her the appropriate care. ROV 4 weeks. Orders: Orders Alpha Fetoprotein Today Gamma Glutamyl Transpeptidase Today ANAHI Reflex Titer and Pattern Today Liver Fibrosis Pnl Today Mitochondrial Antibody Today Ammonia Today Ferritin Today TSH reflex Free T4 Today Smooth Muscle Antibody Today Hepatitis A,B,C Profile Today HIV Ab/Ag Today Coding Level of Care Code New Pt Level 3 (63987) Diagnoses Cirrhosis K74.60 Gastroesophageal reflux disease, unspecified whether esophagitis present K21.9 Esophagitis presence: esophagitis presence not specified Chronic pancreatitis K86.1
== END 2024-01-20 15:13 | disposition home or self-care (01) ==
PROVIDERS: PCP Internal Medicine; Visit Provider Nurse Practitioner
DX: K74.60 Unspecified cirrhosis of liver (principal); K21.9 Gastro-esophageal reflux disease without esophagitis; K86.1 Other chronic pancreatitis
CPT/HCPCS: 99203

== ENCOUNTER 2024-01-22 09:55 | Emergency (ER) | payer OTHER, SELFPAY ==
--- NOTE | 2024-01-22 | ECG_ITS ---
Test Reason : CP Blood Pressure : / mmHG Vent. Rate : 086 BPM Atrial Rate : 086 BPM P-R Int : 148 ms QRS Dur : 074 ms QT Int : 356 ms P-R-T Axes : 059 -04 039 degrees QTc Int : 426 ms Normal sinus rhythm Normal ECG When compared with ECG of 03-AUG-2023 08:07, No significant change was found Referred By: Generic ED Physician Electronically Signed By:MALISSA REVELES
--- NOTE | ~2024-01-22 | XR_ITS ---
EXAMINATION: XR CHEST CLINICAL INFORMATION: Chest pain COMPARISON: Chest radiograph 03/01/2022 TECHNIQUE: Frontal view of the chest was obtained. FINDINGS: The heart and mediastinal borders are normal. No pleural effusion. No focal consolidation. No thorax. No acute osseous abnormality. XR/XR chest 1V IMPRESSION: Unremarkable examination.
[2024-01-22 10:05] VITALS: BP 146/91; PULSE 86; RESP 18; TEMP 36.6; O2SAT 98; BMI 27.9
[2024-01-22 10:35] VITALS: BP 140/80; PULSE 81; RESP 17; TEMP 36.6; O2SAT 100
[2024-01-22] MEDS: 0.9 % Sodium Chloride 1,000 ML 999 ML IV ×2 (11:14→13:01)
--- NOTE | 2024-01-22 11:15 | ED_ITS ---
HPI - URI/Sore Throat General Chief Complaint: Upper Respiratory Symptoms Stated Complaint: Chest pain/Lots of phlegm Time Seen by Provider: 01/22/24 10:43 Source: patient and family ( Significant other) Mode of arrival: ambulatory Limitations: no limitations History of Present Illness HPI Narrative: 63-year-old female came in for evaluation of upper respiratory symptoms with chest pain, coughing with green sputum, generalized body ache, SOB, chest pain that worsening by coughing. Patient had a recent exposure to a sick contacts with flu, no fever, no chills. Patient also been having right side numbness for 5 days with diaphoresis declined any weakness or speech abnormality. Related Data Home Medications ?Medication ?Instructions ?Recorded ?Confirmed diazepam 10 mg tablet 10 mg PO BID PRN Muscle Spasm 09/03/20 12/02/23 pen needle, diabetic 31 gauge x #50 ea 09/03/20 12/02/2312/03 alpha lipoic acid 600 mg capsule 600 mg PO BIDAC 03/01/22 12/02/23 cyanocobalamin (vitamin B-12) 1,000 mcg PO DAILY 03/01/22 12/02/23 1,000 mcg tablet vitamin B complex 1 tab PO DAILY 03/01/22 12/02/23 melatonin 10 mg tablet 10 mg PO BEDTIME PRN Sleep 04/14/23 12/02/23 oxcarbazepine 600 mg tablet 600 mg PO BEDTIME 04/14/23 12/02/23 melatonin ER 10 mg-pyridoxine HCl 1 tab PO BEDTIME PRN 04/29/23 12/02/23 (B6) 10 mg tab, immed-extend release Previous Rx's ?Medication ?Instructions ?Recorded blood-glucose meter #1 ea 07/31/20 pen needle, diabetic, safety 30 #100 ea 03/25/22 gauge x 5/16 (Assure ID Pen Needle) pen needle, diabetic 31 gauge x #100 ea 07/07/22 5/16 (Advocate Pen Needle) ibuprofen 600 mg tablet 600 mg PO TID PRN pain 90 days 07/30/22 #270 tabs albuterol sulfate 90 mcg/actuation 1 - 2 puff inhalation Q4-6H PRN 03/11/23 aerosol inhaler for dyspnea #8.5 grams blood pressure monitor #1 ea 03/11/23 blood-glucose meter (FreeStyle #1 ea 03/11/23 Lite Meter kit) linagliptin 5 mg tablet (Tradjenta) 5 mg PO DAILY #90 tabs 07/09/23 insulin lispro 200 unit/mL (3 mL) 20 unit (0.1 mL) subcut TID 90 08/02/23 subcutaneous pen (Humalog KwikPen days #27 mL U-200 Insulin) cholecalciferol (vitamin D3) 25 25 mcg PO DAILY 90 days #90 caps 08/03/23 mcg (1,000 unit) capsule fenofibrate 54 mg tablet 54 mg PO DAILY 90 days #90 tabs 08/03/23 flash glucose sensor (FreeStyle #1 ea 09/06/23 Avi 14 Day Sensor kit) blood-glucose sensor (HALKAR G7 #1 ea 09/07/23 Sensor device) carisoprodol 350 mg tablet 350 mg PO DAILY PRN Muscle Spasm 12/02/23 30 days #30 tabs insulin degludec 100 unit/mL (3 20 unit (0.2 mL) subcut DAILY 90 12/08/23 mL) subcutaneous pen (Tresiba days #18 mL FlexTouch U-100 insulin) Allergies Allergy/AdvReac Type Severity Reaction Status Date / Time nickel Allergy Severe Rash Verified 01/22/24 10:08 Penicillins Allergy Severe Hives Verified 01/22/24 10:08 acetaminophen [Percocet] Allergy Intermediate vomiting Verified 01/22/24 10:08 cyclobenzaprine Allergy Intermediate HEADACHE,DI Verified 01/22/24 10:08 [CYCLOBENZAPRINE] ZZINESS divalproex sodium [Depakote] Allergy Intermediate increase Verified 01/22/24 10:08 liver enzymes methocarbamol [METHOCARBAMOL] Allergy Intermediate TICS Verified 01/22/24 10:08 oxycodone [From PERCOCET] Allergy Intermediate VOMITING Verified 01/22/24 10:08 liraglutide [From Victoza] AdvReac Severe hypoglycemi Verified 01/22/24 10:08 a lisinopril AdvReac Severe Dizziness Verified 01/22/24 10:08 risperidone [RISPERIDONE] AdvReac Severe CHEST PAIN Verified 01/22/24 10:08 baclofen AdvReac Intermediate Palpitation Verified 01/22/24 10:08 s canagliflozin [Invokana] AdvReac Intermediate confusion Verified 01/22/24 10:08 dulaglutide [Trulicity] AdvReac Intermediate abdominal Verified 01/22/24 10:08 bloating, numbness, myalgia Narcotics Allergy Mild dizzy, sick Uncoded 01/22/24 10:08 Review of Systems 2 Review of Systems: All other systems are reviewed and are negative Constitutional: Reports as per HPI and Reports no additional constitutional complaints Eyes: Reports as per HPI and Reports no additional eye complaints Reports system reviewed and no additional complaints, except as documented Cardiovascular: Reports as per HPI and Reports no additional cardiovascular complaints Respiratory: Reports as per HPI and Reports no additional respiratory complaints Gastrointestinal: Reports as per HPI and Reports no additional gastrointestinal complaints Genitourinary: Reports no additional female genitourinary complaints Musculoskeletal: Reports no additional musculoskeletal complaints Skin/Breast: Reports system reviewed and no additional complaints, except as docu Psychiatric: Reports no additional psychiatric complaints Endocrine: Reports no additional endocrine complaints Hematologic/Lymphatic: Reports no additional hematologic/lymphatic complaints Allergic/Immunologic: Reports no additional allergic/immunologic complaints Reports system reviewed and no additional complaints, except as documented and Reports Abnormal speech present [facility] Past Medical History Medical History Physical exam Vaginal burning Vaginal itching Basilar migraine Hyperlipidemia LDL goal <70 Acute vaginitis Encounter for annual routine gynecological examination Hospital discharge follow-up Shortness of breath COVID-19 Dysuria Vaginal irritation Herpes simplex virus (HSV) infection Intertrigo Diabetes mellitus Diabetes mellitus Migraine with aura Hypertension Renal calculi Chest pain Mixed hyperlipidemia Fibromyalgia Chronic neck pain Nickel allergy Nickel dermatitis Polyarthralgia Surgical History H/O esophagogastroduodenoscopy History of prior ablation treatment History of discectomy History of laparoscopy History of tubal ligation History of colonoscopy History of laparoscopic cholecystectomy History of section Family History Family History Father Prostate cancer Diabetes High cholesterol HTN (hypertension) Mother Liver problem Diabetes High cholesterol HTN (hypertension) Family/Other Diabetes High cholesterol HTN (hypertension) Cancer Social History Social History Household Members: Children Household Members Other:: Son Housing: Apartment Alcohol intake: former Comment: pt refuses bed/chair alarm Patient Tobacco Use Status: Former Tobacco user Tobacco use type: Cigarette Years Smoked: 18 e-Cigarette/Vaping Use: Never Used Second Hand Smoke Exposure: No Advance Directives: No Advance Directives Information Provided: Yes Do you have a plan to hurt others: No Plan service: No Current occupational status: disabled Sexual orientation: Straight/Heterosexual Gender identity: Female Cognitive needs: No Hearing needs: No Vision needs: No Physical Exam 2 Vital Signs: Vital Signs: Last Vital Signs Temp 98.2 F 01/22/24 13:10 Pulse 83 01/22/24 13:10 Resp 15 01/22/24 13:10 BP 140/85 H 01/22/24 13:10 Pulse Ox 98 01/22/24 13:10 O2 Del Method Room Air 01/22/24 13:10 BMI result Body Mass Index 27.9 Vital signs have been reviewed and appear to be correct. Blood pressure elevated. Heart rate normal. Respiratory rate normal. Temperature normal. Oxygen saturation normal. Appearance: Alert. Oriented X3. Anxious, No acute distress. Head: Normal external exam. Normocephalic. Atraumatic. No Dan signs noted. No raccoon eyes noted Eyes: PERRLA. EOMI. Conjunctiva and sclera normal. Eyelids normal. ENT: TM's Normal. Pharynx normal. Uvula midline. Moist mucous membranes. No trismus noted. No drooling noted. No muffled voice noted. Neck: Normal inspection. Neck supple. FROM. No adenopathy. Thyroid Normal. No meningeal signs. No neck mass noted. CVS: Normal heart rate and rhythm. Heart sound normal. No murmurs noted. Pulses normal throughout. Respiratory: No respiratory distress. Painless inspiration. Breath sounds normal. No wheezes/rales/rhonchi noted. Chest nontender. No accessory muscle usage noted or decreased air movement noted. Abdomen: Soft and nontender. Bowel sounds normal in all 4 quadrants. No distention noted. No organomegaly noted. No visible injury noted. Back: No CVA tenderness. Full range of motion noted. Skin: Skin warm and dry. Normal skin color. Normal skin turgor. No rashes/lesions/lacerations noted. Extremities: No lower extremity edema. Extremities exhibit normal range of motion. Extremities nontender. Neuro: Oriented X 3. Cranial nerve exam: II-XII are grossly intact No motor deficit. No sensory deficit. Reflexes normal. NIH Stroke Scale Time: 11:20 Level of Consciousness: Alert Level of Consciousness Questions: Answers both questions correctly Level of Consciousness Commands: Performs both tasks correctly Best Gaze: Normal Visual: No visual loss Facial Palsy: Normal Motor Arm (Right): No drift Motor Arm (Left): No drift Motor Leg (Right): No drift Motor Leg (Left): No drift Limb Ataxia: Absent Sensory: Normal Best Language: No aphasia Dysarthia: Normal Extinction and Inattention: No abnormality Score: 0 Course Reevaluation(s) Reevaluation #1: 63-year-old female came in for evaluation of 5 days' symptoms chest burning, right-sided numbness with no weakness and normal neuro exam, and found to be hyperglycemic secondary to uncontrolled diabetes. Time: 15:35 Medications Administered Discontinued Medications Generic Name Dose Route Start Last Admin Trade Name Freq PRN Reason Stop Dose Admin Sodium Chloride 1,000 mls @ 999 mls/hr 01/22/24 10:53 01/22/24 13:01 Ns IV 01/22/24 11:53 Infused .Q1H1M ONE Infusion Sodium Chloride 1,000 mls @ 999 mls/hr 01/22/24 11:56 01/22/24 14:20 Ns IV 01/22/24 12:56 Infused .Q1H1M ONE Infusion Insulin Human Regular 10 unit 01/22/24 11:56 01/22/24 12:25 Insulin Regular, Human 100 Unit/Ml 3 Ml Vial IVPUSH 01/22/24 11:57 10 unit ONCE ONE Administration Medical Decision Making Differential Diagnosis Differential Diagnoses: The differential diagnosis associated with the presentation includes ( Pneumonia, pneumothorax, pleural effusion, viral upper respiratory infection, electrolyte derangement, ACS, DKA, UTI.) Admission/Observation Consideration of admission/observation: Escalation of care including admission/observation considered Lab Data MDM Lab Attestation statement: I reviewed the patient's lab results. 01/22/24 11:13 01/22/24 11:13 Labs: Lab Results 01/22/24 01/22/24 01/22/24 Range/Units 11:13 12:30 13:04 WBC 6.5 (4.8-10.8) X10*3/uL RBC 4.69 (4.20-5.50) X10*6/uL Hgb 14.3 (12.0-16.0) g/dl Hct 40.1 (37.0-47.0) % MCV 85.5 (80.0-98.0) fL MCH 30.5 (27.0-33.0) pg MCHC 35.7 H (31.0-35.0) g/dl RDW 12.6 (11.0-16.0) % Plt Count 165 (160-400) X10*3/uL MPV 12.0 (9.4-12.3) fL Immature Gran % (Auto) 0.3 (0.0-0.4) % Neut % (Auto) 54.5 (45-73) % Lymph % (Auto) 34.7 (20-40) % [place] % (Auto) 6.9 (2-11) % Eos % (Auto) 3.1 (0-4) % Baso % (Auto) 0.5 (0-2) % Lymph # (Auto) 2.3 (1.2-4.9) X10*3/uL [place] # (Auto) 0.5 (0.1-1.2) X10*3/uL Eos # (Auto) 0.2 (0.0-0.4) X10*3/uL Baso # (Auto) 0.0 (0.0-0.2) X10*3/uL Abs Immat Gran (auto) 0.02 (0.00-0.03) X10*3/uL Absolute Neuts (auto) 3.6 (2.0-8.3) x10*3/uL Absolute Nucleated RBC 0.000 (0.0-0.012) X10*3/uL Nucleated RBC % (auto) 0.0 (0.0-0.2) /100WBC Sodium 138 (135-145) mmol/L Potassium 3.9 (3.3-5.1) mmol/L Chloride 106 (96-108) mmol/L Carbon Dioxide 20 L (22-29) mmol/L Anion Gap 16 (12-20) BUN 10 (9-16) mg/dL Creatinine 0.71 (0.5-1.4) mg/dL Estim Creat Clear Calc 66.0 Estimated GFR > 60 POC Glucose 397 H* (60-115) mg/dL Random Glucose 367 H* (60-115) mg/dL Calcium 9.5 (8.4-10.2) mg/dL Total Bilirubin 1.2 H (0.0-1.0) mg/dL Direct Bilirubin 0.3 (0.0-0.5) mg/dL AST 29 (5-31) U/L ALT 27 (0-31) U/L Alkaline Phosphatase 182 H (39-117) U/L Troponin I High Sens < 2.7 (<3.5-17.0) ng/L B-Natriuretic Peptide 11 (<100) pg/mL Total Protein 7.3 (6.5-8.0) g/dL Albumin 3.8 (3.5-5.0) g/dL Lipase 51 (8-78) U/L Urine Color Yellow Urine Appearance Clear Urine pH 7.5 (5.0-9.0) Ur Specific [place] >= 1.030 H (1.005-1.025) Urine Protein Negative (Neg-Trace) mg/dL Urine Glucose (UA) >=1000 H (Negative) mg/dL Urine Ketones 15 (Negative) mg/dL Urine Blood Negative (Negative) Urine Nitrite Negative (Negative) Ur Leukocyte Esterase Negative (Negative) Urine RBC 0-2 (0-2) /HPF Urine WBC 0-5 (0-5) /HPF Ur Squamous Epith Cells 0-2 (0-2) /HPF Urine Bacteria None Seen (None Seen) Hyaline Casts 0-2 (0-2) /LPF Influenza Type A (PCR) NEGATIVE (Negative) Influenza Type B (PCR) NEGATIVE (Negative) RSV RNA Qual (PCR) NEGATIVE (Negative) SARS-CoV-2 RNA (RT-PCR) NEGATIVE (Negative) 01/22/24 Range/Units 13:21 WBC (4.8-10.8) X10*3/uL RBC (4.20-5.50) X10*6/uL Hgb (12.0-16.0) g/dl Hct (37.0-47.0) % MCV (80.0-98.0) fL MCH (27.0-33.0) pg MCHC (31.0-35.0) g/dl RDW (11.0-16.0) % Plt Count (160-400) X10*3/uL MPV (9.4-12.3) fL Immature Gran % (Auto) (0.0-0.4) % Neut % (Auto) (45-73) % Lymph % (Auto) (20-40) % [place] % (Auto) (2-11) % Eos % (Auto) (0-4) % Baso % (Auto) (0-2) % Lymph # (Auto) (1.2-4.9) X10*3/uL [place] # (Auto) (0.1-1.2) X10*3/uL Eos # (Auto) (0.0-0.4) X10*3/uL Baso # (Auto) (0.0-0.2) X10*3/uL Abs Immat Gran (auto) (0.00-0.03) X10*3/uL Absolute Neuts (auto) (2.0-8.3) x10*3/uL Absolute Nucleated RBC (0.0-0.012) X10*3/uL Nucleated RBC % (auto) (0.0-0.2) /100WBC Sodium (135-145) mmol/L Potassium (3.3-5.1) mmol/L Chloride (96-108) mmol/L Carbon Dioxide (22-29) mmol/L Anion Gap (12-20) BUN (9-16) mg/dL Creatinine (0.5-1.4) mg/dL Estim Creat Clear Calc Estimated GFR POC Glucose 287 H (60-115) mg/dL Random Glucose (60-115) mg/dL Calcium (8.4-10.2) mg/dL Total Bilirubin (0.0-1.0) mg/dL Direct Bilirubin (0.0-0.5) mg/dL AST (5-31) U/L ALT (0-31) U/L Alkaline Phosphatase (39-117) U/L Troponin I High Sens (<3.5-17.0) ng/L B-Natriuretic Peptide (<100) pg/mL Total Protein (6.5-8.0) g/dL Albumin (3.5-5.0) g/dL Lipase (8-78) U/L Urine Color Urine Appearance Urine pH (5.0-9.0) Ur Specific [place] (1.005-1.025) Urine Protein (Neg-Trace) mg/dL Urine Glucose (UA) (Negative) mg/dL Urine Ketones (Negative) mg/dL Urine Blood (Negative) Urine Nitrite (Negative) Ur Leukocyte Esterase (Negative) Urine RBC (0-2) /HPF Urine WBC (0-5) /HPF Ur Squamous Epith Cells (0-2) /HPF Urine Bacteria (None Seen) Hyaline Casts (0-2) /LPF Influenza Type A (PCR) (Negative) Influenza Type B (PCR) (Negative) RSV RNA Qual (PCR) (Negative) SARS-CoV-2 RNA (RT-PCR) (Negative) Independent Interpretation I performed an independent interpretation of an: Plain X-Ray Radiology Impression Discussion of test interpretation with radiology: I have reviewed the radiologist's reading. Discharge Plan Discharge Clinical Impression: Acute upper respiratory infection, Chest pain, Acute hyperglycemia Patient Disposition: Home, Self-Care Instructions: Viral Syndrome (ED), Diabetic Hyperglycemia (ED) Prescriptions: No Action (DME) blood-glucose meter Kit See Rx Instructions .ROUTE .MEDSUPPLY Qty: 1 0RF Rx Instructions: As directed (DME) Assure ID Pen Needle 30 gauge x 5/16 needle See Rx Instructions .ROUTE .MEDSUPPLY Qty: 100 6RF Rx Instructions: Use 1 pen needle once a day ibuprofen 600 mg tablet 600 mg PO TID PRN (Reason: pain) 90 Days Qty: 270 3RF (DME) blood-glucose meter [FreeStyle Lite Meter] Kit See Rx Instructions .Route Qty: 1 0RF Rx Instructions: test 3 times per day albuterol sulfate 90 mcg/actuation HFA aerosol inhaler 1 - 2 puff inhalation Q4-6H PRN (Reason: for dyspnea) Qty: 8.5 2RF (DME) blood pressure monitor Kit See Rx Instructions .ROUTE .MEDSUPPLY Qty: 1 0RF Rx Instructions: As directed Tradjenta 5 mg tablet 5 mg PO DAILY Qty: 90 2RF cholecalciferol (vitamin D3) 25 mcg (1,000 unit) capsule 25 mcg PO DAILY 90 Days Qty: 90 1RF fenofibrate 54 mg tablet 54 mg PO DAILY 90 Days Qty: 90 1RF (DME) FreeStyle Avi 14 Day Sensor Kit See Rx Instructions .Route Qty: 1 11RF Rx Instructions: As directed (DME) Dexcom G7 Sensor Device See Rx Instructions .Route Qty: 1 11RF Rx Instructions: As directed insulin degludec [Tresiba FlexTouch U-100] 100 unit/mL (3 mL) insulin pen 20 unit subcut DAILY 90 Days Qty: 18 1RF cyanocobalamin (vitamin B-12) 1,000 mcg Tablet 1,000 mcg PO DAILY vitamin B complex Tablet 1 tab PO DAILY alpha lipoic acid 600 mg Capsule 600 mg PO BIDAC oxcarbazepine 600 mg tablet 600 mg PO BEDTIME melatonin 10 mg tablet 10 mg PO BEDTIME PRN (Reason: Sleep) diazepam 10 mg tablet 10 mg PO BID PRN (Reason: Muscle Spasm) (DME) pen needle, diabetic 31 gauge x 3/16 needle See Rx Instructions topical QID Qty: 50 Rx Instructions: As directed melatonin-pyridoxine HCl (B6) 10-10 mg tablet, IR and ER, biphasic 1 tab PO BEDTIME PRN carisoprodol 350 mg tablet 350 mg PO DAILY PRN (Reason: Muscle Spasm) 30 Days Qty: 30 0RF (DME) pen needle, diabetic [Advocate Pen Needle] 31 gauge x 5/16 needle See Rx Instructions .Route Qty: 100 3RF Rx Instructions: Use 1 pen needle once a day Humalog KwikPen Insulin 200 unit/mL (3 mL) insulin pen 20 unit subcut TID 90 Days Qty: 27 3RF Referrals: An Gregory MD [Primary Care Provider] - Print Language: Indian
[2024-01-22 11:18] LABS: MANUAL DIFF FLAG NO
[2024-01-22 11:22] LABS: Basophils Percent Auto 0.5 % (0-2); Eosinophils Absolute Auto 0.2 X10*3/uL (0.0-0.4); Eosinophils Percent Auto 3.1 % (0-4); Hematocrit 40.1 % (37.0-47.0); Hemoglobin 14.3 g/dl (12.0-16.0); Imm Gran Abs Auto 0.02 X10*3/uL (0.00-0.03); Imm Gran Pct Auto 0.3 % (0.0-0.4); Lymphocytes Absolute Auto 2.3 X10*3/uL (1.2-4.9); Lymphocytes Percent Auto 34.7 % (20-40); Mean Corpuscular HGB Conc 35.7 g/dl (31.0-35.0); Mean Corpuscular Hemoglobin 30.5 pg (27.0-33.0); Mean Corpuscular Volume 85.5 fL (80.0-98.0); Monocytes Absolute Auto 0.5 X10*3/uL (0.1-1.2); Monocytes Percent Auto 6.9 % (2-11); Neutrophils Absolute Auto 3.6 x10*3/uL (2.0-8.3); Neutrophils Percent Auto 54.5 % (45-73); Platelet Count 165 X10*3/uL (160-400); Red Blood Count 4.69 X10*6/uL (4.20-5.50); Red Cell Distribution Width 12.6 % (11.0-16.0); White Blood Count 6.5 X10*3/uL (4.8-10.8)
[2024-01-22 11:43] LABS: B Type Natriuretic Peptide 11 pg/mL (<100)
[2024-01-22 11:51] LABS: Troponin-I High Sensitivity < 2.7 ng/L (<3.5-17.0)
[2024-01-22 11:55] LABS: Alanine Aminotransferase 27 U/L (0-31); Albumin Level 3.8 g/dL (3.5-5.0); Alkaline Phosphatase 182 U/L (39-117); Anion Gap 16 (12-20); Aspartate Amino Transferase 29 U/L (5-31); Bilirubin Direct 0.3 mg/dL (0.0-0.5); Bilirubin Total 1.2 mg/dL (0.0-1.0); Blood Urea Nitrogen 10 mg/dL (9-16); Calcium 9.5 mg/dL (8.4-10.2); Carbon Dioxide 20 mmol/L (22-29); Chloride 106 mmol/L (96-108); Estimated Glomerular Filt Rate > 60; Glucose Random 367 mg/dL (60-115); Lipase 51 U/L (8-78); Potassium 3.9 mmol/L (3.3-5.1); Sodium 138 mmol/L (135-145); Total Protein 7.3 g/dL (6.5-8.0)
[2024-01-22 12:03] LABS: Influenza A PCR NEGATIVE (Negative); Influenza B PCR NEGATIVE (Negative); Resp Syncy Virus RNA Qual PCR NEGATIVE (Negative); SARS COV2 PCR INHOUSE NEGATIVE (Negative)
[2024-01-22] MEDS: Insulin Regular, Human 100 UNIT/ML 3 ML VIAL 10 UNIT IVPUSH (12:25)
[2024-01-22 12:35] LABS: Glucose, Whole Blood 397 mg/dL (60-115)
[2024-01-22 13:10] VITALS: BP 140/85; PULSE 83; RESP 15; TEMP 36.8; O2SAT 98
[2024-01-22 13:10] LABS: Appearance Urine Clear; Color Urine Yellow; Glucose Urine UA >=1000 mg/dL (Negative); Leukocyte Esterase Urine Negative (Negative); Nitrite Urine Negative (Negative); PH 7.5 (5.0-9.0); Specific Gravity - Urine >= 1.030 (1.005-1.025); UMIC TRIGGER UACC YES; Urine Blood Negative (Negative); Urine Ketones 15 mg/dL (Negative); Urine Protein Negative (Neg-Trace)
[2024-01-22 13:15] LABS: Bacteria Urine None Seen (None Seen); Hyaline Casts Urine 0-2 /LPF (0-2); RBC Urine 0-2 /HPF (0-2); Squamous Epithelial Cell Urine 0-2 /HPF (0-2); WBC Urine 0-5 /HPF (0-5)
[2024-01-22 13:29] LABS: Glucose, Whole Blood 287 mg/dL (60-115)
[2024-01-22 16:03] VITALS: BP 129/70; PULSE 88; RESP 16; TEMP 36.5; O2SAT 97
== END 2024-01-22 16:05 | disposition home or self-care (01) ==
PROVIDERS: Emergency Provider Emergency Medicine; PCP Internal Medicine
DX: J06.9 Acute upper respiratory infection, unspecified (principal); E11.65 Type 2 diabetes mellitus with hyperglycemia; R07.9 Chest pain, unspecified; R06.02 Shortness of breath; Z87.891 Personal history of nicotine dependence; Z03.818 Encounter for observation for suspected exposure to other biological agents ruled out; Z79.4 Long term (current) use of insulin; Z79.899 Other long term (current) drug therapy; Z79.85 Long-term (current) use of injectable non-insulin antidiabetic drugs
CPT/HCPCS: 0241U; 36415; 71045; 80048; 80076; 81001; 82947; 83690; 83880; 84484; 85025; 93005; 96361; 96374; 99284; 99285

== ENCOUNTER → 2024-01-22 10:00 | Outpatient (BNV) | payer OTHER, SELFPAY | PROVIDERS: Emergency Provider Emergency Medicine; PCP Internal Medicine; Visit Provider Internal Medicine | DX: R07.9 Chest pain, unspecified (principal) | CPT/HCPCS: 93010 ==

== ENCOUNTER 2024-01-30 15:12 | Emergency (ER) | payer OTHER, SELFPAY ==
[2024-01-30 15:17] VITALS: BP 138/77; PULSE 110; RESP 16; TEMP 36.5; O2SAT 98; BMI 28.3
--- NOTE | 2024-01-30 15:18 | ED_ITS ---
HPI - General Adult General Chief complaint: Skin/Abscess/Foreign Body Stated complaint: cyst Time Seen by Provider: 01/30/24 15:32 Source: patient, family, RN notes reviewed and old records reviewed Mode of arrival: ambulatory Limitations: no limitations History of Present Illness HPI narrative: 63-year-old female with past medical history significant for hypertension, hyperlipidemia, bipolar disorder, poorly-controlled diabetes, migraines, fibromyalgia, TIA, pancreatitis presents to the ED today for concern of abdominal abscess x3 days. Admits to noticing a pimple to her lower abdomen along her skin fold on wednesday (3 days ago). Over the last few days, the area has been enlarging and becoming more painful. Endorses purulent drainage from the area beginning this morning, prompting her to come to the ED. Endorses 10/10 pain to the area. No radiation. No active bleeding or discharge. She has been applying Vaseline to the area which has seemed to worsen pain. She has not taken any OTC pain medications for this. Deneis fevers, chills, N/V, chest pain, palpitations, sob, abdominal pain, flank pain, dysuria, hematuria, vaginal discharge or bleeding. Related Data Home Medications ?Medication ?Instructions ?Recorded ?Confirmed diazepam 10 mg tablet 10 mg PO BID PRN Muscle Spasm 09/03/20 12/02/23 pen needle, diabetic 31 gauge x #50 ea 09/03/20 12/02/2312/03 alpha lipoic acid 600 mg capsule 600 mg PO BIDAC 03/01/22 12/02/23 cyanocobalamin (vitamin B-12) 1,000 mcg PO DAILY 03/01/22 12/02/23 1,000 mcg tablet vitamin B complex 1 tab PO DAILY 03/01/22 12/02/23 melatonin 10 mg tablet 10 mg PO BEDTIME PRN Sleep 04/14/23 12/02/23 oxcarbazepine 600 mg tablet 600 mg PO BEDTIME 04/14/23 12/02/23 melatonin ER 10 mg-pyridoxine HCl 1 tab PO BEDTIME PRN 04/29/23 12/02/23 (B6) 10 mg tab, immed-extend release Previous Rx's ?Medication ?Instructions ?Recorded blood-glucose meter #1 ea 07/31/20 pen needle, diabetic, safety 30 #100 ea 07/06/22 gauge x 5/16 (Assure ID Pen Needle) pen needle, diabetic 31 gauge x #100 ea 07/07/22 5/16 (Advocate Pen Needle) ibuprofen 600 mg tablet 600 mg PO TID PRN pain 90 days 07/30/22 #270 tabs albuterol sulfate 90 mcg/actuation 1 - 2 puff inhalation Q4-6H PRN 03/11/23 aerosol inhaler for dyspnea #8.5 grams blood pressure monitor #1 ea 03/11/23 blood-glucose meter (FreeStyle #1 ea 03/11/23 Lite Meter kit) linagliptin 5 mg tablet (Tradjenta) 5 mg PO DAILY #90 tabs 07/09/23 insulin lispro 200 unit/mL (3 mL) 20 unit (0.1 mL) subcut TID 90 08/02/23 subcutaneous pen (Humalog KwikPen days #27 mL U-200 Insulin) cholecalciferol (vitamin D3) 25 25 mcg PO DAILY 90 days #90 caps 08/03/23 mcg (1,000 unit) capsule fenofibrate 54 mg tablet 54 mg PO DAILY 90 days #90 tabs 08/03/23 flash glucose sensor (FreeStyle #1 ea 09/06/23 Avi 14 Day Sensor kit) blood-glucose sensor (Dexcom G7 #1 ea 09/07/23 Sensor device) carisoprodol 350 mg tablet 350 mg PO DAILY PRN Muscle Spasm 12/02/23 30 days #30 tabs insulin degludec 100 unit/mL (3 20 unit (0.2 mL) subcut DAILY 90 12/08/23 mL) subcutaneous pen (Tresiba days #18 mL FlexTouch U-100 insulin) cephalexin 500 mg capsule 500 mg PO TID 7 days #21 caps 01/30/24 doxycycline monohydrate 100 mg 100 mg PO BID 7 days #14 caps 01/30/24 capsule Allergies Allergy/AdvReac Type Severity Reaction Status Date / Time nickel Allergy Severe Rash Verified 01/30/24 15:18 Penicillins Allergy Severe Hives Verified 01/30/24 15:18 acetaminophen [Percocet] Allergy Intermediate vomiting Verified 01/30/24 15:18 cyclobenzaprine Allergy Intermediate HEADACHE,DI Verified 01/30/24 15:18 [CYCLOBENZAPRINE] ZZINESS divalproex sodium [Depakote] Allergy Intermediate increase Verified 01/30/24 15:18 liver enzymes methocarbamol [METHOCARBAMOL] Allergy Intermediate TICS Verified 01/30/24 15:18 oxycodone [From PERCOCET] Allergy Intermediate VOMITING Verified 01/30/24 15:18 liraglutide [From Victoza] AdvReac Severe hypoglycemi Verified 01/30/24 15:18 a lisinopril AdvReac Severe Dizziness Verified 01/30/24 15:18 risperidone [RISPERIDONE] AdvReac Severe CHEST PAIN Verified 01/30/24 15:18 baclofen AdvReac Intermediate Palpitation Verified 01/30/24 15:18 s canagliflozin [Invokana] AdvReac Intermediate confusion Verified 01/30/24 15:18 dulaglutide [Trulicity] AdvReac Intermediate abdominal Verified 01/30/24 15:18 bloating, numbness, myalgia Narcotics Allergy Mild dizzy, sick Uncoded 01/22/24 10:08 Review of Systems 2 Review of Systems: Constitutional: No fever, chills, fatigue, night sweats, weight changes ENT/Mouth: No ear pain, hearing loss, nasal congestion, sinus pain, rhinorrhea, sore throat Eyes: No eye pain, swelling, redness, vision changes, discharge Cardio: No chest pain, palpitations, MADRIGAL, orthopnea, peripheral edema Pulm: No SOB, cough, sputum, wheezing, dyspnea, hemoptysis GI: No nausea, vomiting, hematemesis, abdominal pain, diarrhea, constipation, hematochezia, melena : No irregular bleeding, dysuria, frequency, urgency, hesitancy, hematuria, flank pain, urinary flow changes, urinary incontinence or retention MSK: No back pain, neck pain, joint pain, myalgias Skin: No lesions, rashes, +skin infection to lower abdomen Neuro: No weakness, numbness, paresthesias, LOC, dizziness, headache Psych: No anxiety/panic, depression, SI/HI, AH/VH All other systems reviewed and are negative. [facility] Past Medical History Attestation statement: The following information was validated with the patient. Source: old records reviewed and nursing notes reviewed Medical History Physical exam Vaginal burning Vaginal itching Basilar migraine Hyperlipidemia LDL goal <70 Acute vaginitis Encounter for annual routine gynecological examination Hospital discharge follow-up Shortness of breath COVID-19 Dysuria Vaginal irritation Herpes simplex virus (HSV) infection Intertrigo Diabetes mellitus Diabetes mellitus Migraine with aura Hypertension Renal calculi Chest pain Mixed hyperlipidemia Fibromyalgia Chronic neck pain Nickel allergy Nickel dermatitis Polyarthralgia Surgical History H/O esophagogastroduodenoscopy History of prior ablation treatment History of discectomy History of laparoscopy History of tubal ligation History of colonoscopy History of laparoscopic cholecystectomy History of section Family History Family History Father Prostate cancer Diabetes High cholesterol HTN (hypertension) Mother Liver problem Diabetes High cholesterol HTN (hypertension) Family/Other Diabetes High cholesterol HTN (hypertension) Cancer Social History Social History Household Members: Children Household Members Other:: Son Housing: Apartment Alcohol intake: former Comment: pt refuses bed/chair alarm Patient Tobacco Use Status: Former Tobacco user Tobacco use type: Cigarette Years Smoked: 18 e-Cigarette/Vaping Use: Never Used Second Hand Smoke Exposure: No Advance Directives: No Advance Directives Information Provided: No Do you have a plan to hurt others: No Plan service: No Current occupational status: disabled Sexual orientation: Straight/Heterosexual Gender identity: Female Cognitive needs: No Hearing needs: No Vision needs: No Physical Exam ED Vital Signs: Vital Signs - 24 hr 01/30/24 18:28 01/30/24 19:28 Temperature 98.4 F 98.3 F Pulse Rate 81 84 Respiratory Rate 18 18 Blood Pressure 119/71 120/72 Pulse Oximetry 98 98 Oxygen Delivery Method Room Air Room Air BMI result Body Mass Index 28.3 Patient tachy to 110, vitals otherwise wnl. Const General: cooperative, healthy appearing, comfortable and no acute distress Orientation/consciousness: patient oriented x3 Limitations: no limitations HENMT Head: Yes normal to inspection, Yes No palpable skull fracture present, Yes normocephalic and Yes atraumatic Eyes General: appearance normal, both eyes and all related structures Conjunctivae: conjunctivae normal Sclerae: sclerae normal Pupils: Equal, round and reactive pupils present Neck Neck: Yes normal visual inspection, Yes full ROM and Yes no lymphadenopathy Resp Effort & Inspection: normal respiratory effort and able to speak in complete sentences Auscultation: clear to auscultation bilaterally Cardio Rate: regular rate Rhythm: regular rhythm GI Palpation (GI): Soft to palpation and nontender Abdomen image: 2 1. 0.5 cm raised area with 0.5 cm of surrounding erythema. warm and ttp. no active discharge. no palpable fluctuance or crepitus. no streaking. Skin Other: + see above. Neuro General: patient oriented x3 and gait normal Cranial nerves: Yes Equal, round and reactive pupils present Extrem General: Yes normal to inspection and Yes full ROM Course Course Course Narrative: RME performed by Cristal Ragland PA-C. Patient is a 63 year old assigned female at presenting to the emergency department with an abscess to her left groin. Patient states that she was using the bathroom when she noticed a very swollen area to her left groin, near her vagina, that ruptured and is leaking a lot of pus. Patient states that she was putting Vaseline on it but it wasn't working. Detailed physical exam and review of systems are deferred to the manager star. Patient placed back in the waiting room pending room availability. Reevaluation(s) Reevaluation #1: 1622-- Patient extremely anxious on exam. 0.5 Ativan ordered. Will obtain basic labs, routine culture with Gram stain of discharge, blood cultures, and administer 1 dose of Keflex and doxy. 1700-- CBC without leukocytosis or left shift. No anemia. H&H stable. Chemistry without acute electrolyte abnormality requiring intervention. Normal renal function. Transaminitis with alk-phos of 210. Random glucose noted to be 521 > 2L of IV fluids ordered. As patient is currently asymptomatic there is no concern for DKA. She tells me that her sugars are typically poorly controlled and was recently noted to be in the 700s. 1900-- Patient stable at the end of my shift. Sign out given to my colleague Cristal BORRERO pending IVF and repeat POC glucose. Medications Administered Discontinued Medications Generic Name Dose Route Start Last Admin Trade Name Freq PRN Reason Stop Dose Admin Cephalexin HCl 500 mg 01/30/24 16:14 01/30/24 16:21 Cephalexin 500 Mg Capsule PO 01/30/24 16:15 500 mg ONCE ONE Administration Doxycycline Monohydrate 100 mg 01/30/24 16:14 01/30/24 16:21 Doxycycline Monohydrate 100 Mg Capsule PO 01/30/24 16:15 100 mg ONCE ONE Administration Sodium Chloride 1,000 mls @ 999 mls/hr 01/30/24 17:15 01/30/24 17:56 Ns IV 01/30/24 18:15 999 mls/hr .Q1H1M RENITA Administration Sodium Chloride 1,000 mls @ 999 mls/hr 01/30/24 17:15 01/30/24 17:56 Ns IV 01/30/24 18:15 999 mls/hr .Q1H1M RENITA Administration Lorazepam 0.5 mg 01/30/24 16:13 01/30/24 16:21 Lorazepam 0.5 Mg Tablet PO 01/30/24 16:14 0.5 mg ONCE ONE Administration Medical Decision Making Medical Decision Making [facility] Narrative: 63-year-old female with past medical history significant for hypertension, hyperlipidemia, bipolar disorder, poorly-controlled diabetes, migraines, fibromyalgia, TIA, pancreatitis presents to the ED today for concern of abdominal abscess x3 days. Vital signs notable for tachycardia. Otherwise WNL. She is nontoxic appearing in no acute distress. Notably anxious about the current situation. On exam there is a 0.5 cm raised area with 0.5 cm of surrounding erythema noted to left suprapubic region along skin folds. warm and ttp. no active discharge. no palpable fluctuance or crepitus. no streaking. Differential diagnosis includes cellulitis, abscess, intertrigo, folliculitis, DKA, hyperglycemia. Low suspicion for contact dermatitis, allergic dermatitis. No concern for sepsis, deep abdominal infection. Plan for basic labs, blood cultures, culture and gram stain, pain control, abx and re-evaluation. 1971 ---> Patient's blood sugar decreased well. Discharge. Differential Diagnosis Differential Diagnoses: The differential diagnosis associated with the presentation includes as above. Admission/Observation Consideration of admission/observation: Escalation of care including admission/observation considered Admission considered on presentation Lab Data [facility] Lab Attestation statement: I reviewed the patient's lab results. As above 01/30/24 16:32 01/30/24 16:32 Labs: Lab Results 01/30/24 01/30/24 Range/Units 16:32 19:26 WBC 7.7 (4.8-10.8) X10*3/uL RBC 4.83 (4.20-5.50) X10*6/uL Hgb 14.7 (12.0-16.0) g/dl Hct 42.2 (37.0-47.0) % MCV 87.4 (80.0-98.0) fL MCH 30.4 (27.0-33.0) pg MCHC 34.8 (31.0-35.0) g/dl RDW 12.7 (11.0-16.0) % Plt Count 172 (160-400) X10*3/uL MPV 11.6 (9.4-12.3) fL Immature Gran % (Auto) 0.3 (0.0-0.4) % Neut % (Auto) 65.3 (45-73) % Lymph % (Auto) 27.4 (20-40) % [place] % (Auto) 5.2 (2-11) % Eos % (Auto) 1.4 (0-4) % Baso % (Auto) 0.4 (0-2) % Lymph # (Auto) 2.1 (1.2-4.9) X10*3/uL [place] # (Auto) 0.4 (0.1-1.2) X10*3/uL Eos # (Auto) 0.1 (0.0-0.4) X10*3/uL Baso # (Auto) 0.0 (0.0-0.2) X10*3/uL Abs Immat Gran (auto) 0.02 (0.00-0.03) X10*3/uL Absolute Neuts (auto) 5.0 (2.0-8.3) x10*3/uL Absolute Nucleated RBC 0.000 (0.0-0.012) X10*3/uL Nucleated RBC % (auto) 0.0 (0.0-0.2) /100WBC Sodium 137 (135-145) mmol/L Potassium 3.9 (3.3-5.1) mmol/L Chloride 100 (96-108) mmol/L Carbon Dioxide 22 (22-29) mmol/L Anion Gap 19 (12-20) BUN 10 (9-16) mg/dL Creatinine 1.02 (0.5-1.4) mg/dL Estim Creat Clear Calc 46.3 Estimated GFR 55 POC Glucose 307 H (60-115) mg/dL Random Glucose 521 H* (60-115) mg/dL Calcium 9.6 (8.4-10.2) mg/dL Total Bilirubin 0.6 (0.0-1.0) mg/dL AST 29 (5-31) U/L ALT 28 (0-31) U/L Alkaline Phosphatase 210 H (39-117) U/L Total Protein 8.3 H (6.5-8.0) g/dL Albumin 4.1 (3.5-5.0) g/dL External Record Review External record reviewed: Inpatient record, Office record, Outpatient record, Prior outpatient labs, Prior outpatient radiology, Primary care record and Outside ED record Prescription Management I considered prescription management with: Pain Medication and Antibiotic (Keflex, doxy) Critical Care Time Critical Care Time Critical Care Time: Yes Total Critical Care Time: 69 Attestation: Critical care time in the amount of 69 minutes has been provided to the patient in terms of direct patient care, frequent reevaluation, review and interpretation of medical data and results, and management of potentially life- threatening conditions. This is all outside of any medical procedures. Discharge Plan Discharge Clinical Impression: Folliculitis, Hyperglycemia Patient Disposition: Home, Self-Care Instructions: Folliculitis (ED), Diabetic Hyperglycemia (ED) Additional Instructions: Keflex is an antibiotic that has been sent to your pharmacy. Take this as prescribed for the next 7 days. Doxycycline is an antibiotic that has been sent to your pharmacy. Take this as prescribed for the next 7 days. On doxycycline, do not take pills immediately before going to bed and swallow pills with plenty of water. Avoid direct sunlight, iron, antacids, and Pepto Bismol. Call your provider if you develop new ringing in your ears, new problems hearing, dizziness, difficulty swallowing, rash, abdominal discomfort, nausea, or diarrhea. Take all antibiotics to completion and do not skip any doses or stop these early. Follow up with your PCP this week. Return with new or worsening symptoms. In the case of an emergency call 911. Additionally, your blood sugar was noted to be in the 500s today. This is dangerous. Please make sure you are taking all of your diabetes medications at home as prescribed. Do not miss any doses. Prescriptions: New cephalexin 500 mg capsule 500 mg PO TID 7 Days Qty: 21 0RF doxycycline monohydrate 100 mg capsule 100 mg PO BID 7 Days Qty: 14 0RF No Action (DME) blood-glucose meter Kit See Rx Instructions .ROUTE .MEDSUPPLY Qty: 1 0RF Rx Instructions: As directed (DME) Assure ID Pen Needle 30 gauge x 5/16 needle See Rx Instructions .ROUTE .MEDSUPPLY Qty: 100 6RF Rx Instructions: Use 1 pen needle once a day ibuprofen 600 mg tablet 600 mg PO TID PRN (Reason: pain) 90 Days Qty: 270 3RF (DME) blood-glucose meter [FreeStyle Lite Meter] Kit See Rx Instructions .Route Qty: 1 0RF Rx Instructions: test 3 times per day albuterol sulfate 90 mcg/actuation HFA aerosol inhaler 1 - 2 puff inhalation Q4-6H PRN (Reason: for dyspnea) Qty: 8.5 2RF (DME) blood pressure monitor Kit See Rx Instructions .ROUTE .MEDSUPPLY Qty: 1 0RF Rx Instructions: As directed Tradjenta 5 mg tablet 5 mg PO DAILY Qty: 90 2RF cholecalciferol (vitamin D3) 25 mcg (1,000 unit) capsule 25 mcg PO DAILY 90 Days Qty: 90 1RF fenofibrate 54 mg tablet 54 mg PO DAILY 90 Days Qty: 90 1RF (DME) FreeStyle Avi 14 Day Sensor Kit See Rx Instructions .Route Qty: 1 11RF Rx Instructions: As directed (DME) Dexcom G7 Sensor Device See Rx Instructions .Route Qty: 1 11RF Rx Instructions: As directed insulin degludec [Tresiba FlexTouch U-100] 100 unit/mL (3 mL) insulin pen 20 unit subcut DAILY 90 Days Qty: 18 1RF cyanocobalamin (vitamin B-12) 1,000 mcg Tablet 1,000 mcg PO DAILY vitamin B complex Tablet 1 tab PO DAILY alpha lipoic acid 600 mg Capsule 600 mg PO BIDAC oxcarbazepine 600 mg tablet 600 mg PO BEDTIME melatonin 10 mg tablet 10 mg PO BEDTIME PRN (Reason: Sleep) diazepam 10 mg tablet 10 mg PO BID PRN (Reason: Muscle Spasm) (DME) pen needle, diabetic 31 gauge x 3/16 needle See Rx Instructions topical QID Qty: 50 Rx Instructions: As directed melatonin-pyridoxine HCl (B6) 10-10 mg tablet, IR and ER, biphasic 1 tab PO BEDTIME PRN carisoprodol 350 mg tablet 350 mg PO DAILY PRN (Reason: Muscle Spasm) 30 Days Qty: 30 0RF (DME) pen needle, diabetic [Advocate Pen Needle] 31 gauge x 5/16 needle See Rx Instructions .Route Qty: 100 3RF Rx Instructions: Use 1 pen needle once a day Humalog KwikPen Insulin 200 unit/mL (3 mL) insulin pen 20 unit subcut TID 90 Days Qty: 27 3RF Referrals: An Gregory MD [Primary Care Provider] - Interventions: ED Discharge Assessment Last Done: 01/30/24 19:28 Discharge Date/Time: 01/30/24 19:31 Print Language: Amharic
[2024-01-30] MEDS: Doxycycline Monohydrate 100 MG CAPSULE PO (16:21)
[2024-01-30] MEDS: LORazepam 0.5 MG TABLET PO (16:21)
[2024-01-30] MEDS: cephALEXin 500 MG CAPSULE PO (16:21)
[2024-01-30 16:40] LABS: MANUAL DIFF FLAG NO
[2024-01-30 16:41] LABS: Basophils Percent Auto 0.4 % (0-2); Eosinophils Absolute Auto 0.1 X10*3/uL (0.0-0.4); Eosinophils Percent Auto 1.4 % (0-4); Hematocrit 42.2 % (37.0-47.0); Hemoglobin 14.7 g/dl (12.0-16.0); Imm Gran Abs Auto 0.02 X10*3/uL (0.00-0.03); Imm Gran Pct Auto 0.3 % (0.0-0.4); Lymphocytes Absolute Auto 2.1 X10*3/uL (1.2-4.9); Lymphocytes Percent Auto 27.4 % (20-40); Mean Corpuscular HGB Conc 34.8 g/dl (31.0-35.0); Mean Corpuscular Hemoglobin 30.4 pg (27.0-33.0); Mean Corpuscular Volume 87.4 fL (80.0-98.0); Mean Platelet Volume 11.6 fL (9.4-12.3); Monocytes Absolute Auto 0.4 X10*3/uL (0.1-1.2); Monocytes Percent Auto 5.2 % (2-11); Neutrophils Percent Auto 65.3 % (45-73); Platelet Count 172 X10*3/uL (160-400); Red Blood Count 4.83 X10*6/uL (4.20-5.50); Red Cell Distribution Width 12.7 % (11.0-16.0); White Blood Count 7.7 X10*3/uL (4.8-10.8)
[2024-01-30 17:00] LABS: Alanine Aminotransferase 28 U/L (0-31); Albumin Level 4.1 g/dL (3.5-5.0); Alkaline Phosphatase 210 U/L (39-117); Anion Gap 19 (12-20); Aspartate Amino Transferase 29 U/L (5-31); Bilirubin Total 0.6 mg/dL (0.0-1.0); Blood Urea Nitrogen 10 mg/dL (9-16); Calcium 9.6 mg/dL (8.4-10.2); Carbon Dioxide 22 mmol/L (22-29); Chloride 100 mmol/L (96-108); Creatinine Clr Calc Pharmacy 46.3; Estimated Glomerular Filt Rate 55; Glucose Random 521 mg/dL (60-115); Potassium 3.9 mmol/L (3.3-5.1); Sodium 137 mmol/L (135-145); Total Protein 8.3 g/dL (6.5-8.0)
[2024-01-30] MEDS: 0.9 % Sodium Chloride 1,000 ML 999 ML IV ×2 (17:56)
[2024-01-30 18:28] VITALS: BP 119/71; PULSE 81; RESP 18; TEMP 36.9; O2SAT 98
[2024-01-30 19:28] VITALS: BP 120/72; PULSE 84; RESP 18; TEMP 36.8; O2SAT 98
[2024-01-30 19:30] LABS: Glucose, Whole Blood 307 mg/dL (60-115)
== END 2024-01-30 19:31 | disposition home or self-care (01) ==
PROVIDERS: Physician Assistant Medical; Emergency Provider Student in an Organized Health Care Education/Training Program; PCP Internal Medicine
DX: L02.211 Cutaneous abscess of abdominal wall (principal); L73.8 Other specified follicular disorders; E11.65 Type 2 diabetes mellitus with hyperglycemia; Z79.4 Long term (current) use of insulin; Z79.899 Other long term (current) drug therapy; Z87.891 Personal history of nicotine dependence
CPT/HCPCS: 36415; 80053; 82947; 85025; 87040; 87070; 87077; 87186; 87205; 99283

== ENCOUNTER 2024-02-03 15:13 | Emergency (ER) | payer OTHER, SELFPAY ==
[2024-02-03 15:38] VITALS: BP 145/79; PULSE 96; RESP 18; TEMP 36.2; O2SAT 98; BMI 27.9
--- NOTE | 2024-02-03 15:40 | ED_ITS ---
HPI - General Adult General Chief complaint: Skin/Abscess/Foreign Body Stated complaint: abscess on left abd Time Seen by Provider: 02/03/24 18:46 Source: patient Mode of arrival: ambulatory Limitations: no limitations History of Present Illness HPI narrative: Patient diabetic had a small abscess on left lower abdomen seen here on 01/19 and started on cephalexin and doxycycline after needle aspiration comes here as swelling is getting bigger and has got blackish Eschar no history of similar abscesses in the past no history of staph in past Related Data Home Medications ?Medication ?Instructions ?Recorded ?Confirmed diazepam 10 mg tablet 10 mg PO BID PRN Muscle Spasm 09/03/20 12/02/23 pen needle, diabetic 31 gauge x #50 ea 09/03/20 12/02/2312/03 alpha lipoic acid 600 mg capsule 600 mg PO BIDAC 03/01/22 12/02/23 cyanocobalamin (vitamin B-12) 1,000 mcg PO DAILY 03/01/22 12/02/23 1,000 mcg tablet vitamin B complex 1 tab PO DAILY 03/01/22 12/02/23 melatonin 10 mg tablet 10 mg PO BEDTIME PRN Sleep 04/14/23 12/02/23 oxcarbazepine 600 mg tablet 600 mg PO BEDTIME 04/14/23 12/02/23 melatonin ER 10 mg-pyridoxine HCl 1 tab PO BEDTIME PRN 04/29/23 12/02/23 (B6) 10 mg tab, immed-extend release Previous Rx's ?Medication ?Instructions ?Recorded blood-glucose meter #1 ea 07/31/20 pen needle, diabetic, safety 30 #100 ea 03/25/22 gauge x 5/16 (Assure ID Pen Needle) pen needle, diabetic 31 gauge x #100 ea 07/07/2216 (Advocate Pen Needle) ibuprofen 600 mg tablet 600 mg PO TID PRN pain 90 days 07/30/22 #270 tabs albuterol sulfate 90 mcg/actuation 1 - 2 puff inhalation Q4-6H PRN 03/11/23 aerosol inhaler for dyspnea #8.5 grams blood pressure monitor #1 ea 03/11/23 blood-glucose meter (FreeStyle #1 ea 03/11/23 Lite Meter kit) linagliptin 5 mg tablet (Tradjenta) 5 mg PO DAILY #90 tabs 07/09/23 insulin lispro 200 unit/mL (3 mL) 20 unit (0.1 mL) subcut TID 90 08/02/23 subcutaneous pen (Humalog KwikPen days #27 mL U-200 Insulin) cholecalciferol (vitamin D3) 25 25 mcg PO DAILY 90 days #90 caps 08/03/23 mcg (1,000 unit) capsule fenofibrate 54 mg tablet 54 mg PO DAILY 90 days #90 tabs 08/03/23 flash glucose sensor (FreeStyle #1 ea 09/06/23 Avi 14 Day Sensor kit) blood-glucose sensor (Dexcom G7 #1 ea 09/07/23 Sensor device) carisoprodol 350 mg tablet 350 mg PO DAILY PRN Muscle Spasm 12/02/23 30 days #30 tabs insulin degludec 100 unit/mL (3 20 unit (0.2 mL) subcut DAILY 90 12/08/23 mL) subcutaneous pen (Tresiba days #18 mL FlexTouch U-100 insulin) cephalexin 500 mg capsule 500 mg PO TID 7 days #21 caps 01/30/24 doxycycline monohydrate 100 mg 100 mg PO BID 7 days #14 caps 01/30/24 capsule cephalexin 500 mg capsule 500 mg PO QID 7 days #28 caps 02/03/24 doxycycline hyclate 100 mg tablet 100 mg PO BID #14 tabs 02/03/24 Allergies Allergy/AdvReac Type Severity Reaction Status Date / Time nickel Allergy Severe Rash Verified 02/03/24 15:41 Penicillins Allergy Severe Hives Verified 02/03/24 15:41 acetaminophen [Percocet] Allergy Intermediate vomiting Verified 02/03/24 15:41 cyclobenzaprine Allergy Intermediate HEADACHE,DI Verified 02/03/24 15:41 [CYCLOBENZAPRINE] ZZINESS divalproex sodium [Depakote] Allergy Intermediate increase Verified 02/03/24 15:41 liver enzymes methocarbamol [METHOCARBAMOL] Allergy Intermediate TICS Verified 02/03/24 15:41 oxycodone [From PERCOCET] Allergy Intermediate VOMITING Verified 02/03/24 15:41 liraglutide [From Victoza] AdvReac Severe hypoglycemi Verified 02/03/24 15:41 a lisinopril AdvReac Severe Dizziness Verified 02/03/24 15:41 risperidone [RISPERIDONE] AdvReac Severe CHEST PAIN Verified 02/03/24 15:41 baclofen AdvReac Intermediate Palpitation Verified 02/03/24 15:41 s canagliflozin [Invokana] AdvReac Intermediate confusion Verified 02/03/24 15:41 dulaglutide [Trulicity] AdvReac Intermediate abdominal Verified 02/03/24 15:41 bloating, numbness, myalgia Narcotics Allergy Mild dizzy, sick Uncoded 01/22/24 10:08 Review of Systems 2 Review of Systems: Yes all other systems are reviewed and are negative [facility] Past Medical History Medical History Physical exam Vaginal burning Vaginal itching Basilar migraine Hyperlipidemia LDL goal <70 Acute vaginitis Encounter for annual routine gynecological examination Hospital discharge follow-up Shortness of breath COVID-19 Dysuria Vaginal irritation Herpes simplex virus (HSV) infection Intertrigo Diabetes mellitus Diabetes mellitus Migraine with aura Hypertension Renal calculi Chest pain Mixed hyperlipidemia Fibromyalgia Chronic neck pain Nickel allergy Nickel dermatitis Polyarthralgia Surgical History H/O esophagogastroduodenoscopy History of prior ablation treatment History of discectomy History of laparoscopy History of tubal ligation History of colonoscopy History of laparoscopic cholecystectomy History of section Family History Family History Father Prostate cancer Diabetes High cholesterol HTN (hypertension) Mother Liver problem Diabetes High cholesterol HTN (hypertension) Family/Other Diabetes High cholesterol HTN (hypertension) Cancer Social History Social History Household Members: Children Household Members Other:: Son Housing: Apartment Alcohol intake: former Comment: pt refuses bed/chair alarm Patient Tobacco Use Status: Former Tobacco user Tobacco use type: Cigarette Years Smoked: 18 Smoked in Last 30 Days: No e-Cigarette/Vaping Use: Never Used Second Hand Smoke Exposure: No Use of substances other than those prescribed or required for medical reasons: No Advance Directives: No Advance Directives Information Provided: No Do you have a plan to hurt others: No Plan Patient : No service: No Current occupational status: disabled Sexual orientation: Straight/Heterosexual Gender identity: Female Cognitive needs: No Hearing needs: No Vision needs: No Physical Exam ED Vital Signs: Vital Signs - 24 hr 02/03/24 15:38 02/03/24 19:34 Temperature 97.2 F 97.9 F Pulse Rate 96 81 Respiratory Rate 18 18 Blood Pressure 145/79 H 146/75 H Pulse Oximetry 98 97 Oxygen Delivery Method Room Air Room Air BMI result Body Mass Index 27.9 Appearance: Alert. Oriented X3. No acute distress. CVS: Normal heart rate and rhythm. Pulses normal. Respiratory: No respiratory distress. Equal air entry bilateral, no wheezing/rales/rhonchi Abdomen: Soft and nontender. Bowel sounds are present, small 2 x 2 cm lesion in left lower abdomen with blackish eschar and surrounding cellulitis Skin: Skin warm and dry. Normal skin color. Normal skin turgor. Extremities: No lower extremity edema. No calf tenderness Neuro: Oriented X 3. Course Course Course Narrative: RME performed by Cristal Ragland PA-C. Patient is a 63 year old assigned female at presenting to the emergency department with continued pain. Patient states that she was seen here recently for a left lower abdominal abscess that she had drained however, she continues to have pain and believes it to be significantly worse. Patient states that she has been taking her ABX as prescribed. Detailed physical exam and review of systems are deferred to the hr business partner consultant. Labs ordered. Patient placed back in the waiting room pending room availability and results. Medications Administered Discontinued Medications Generic Name Dose Route Start Last Admin Trade Name Freq PRN Reason Stop Dose Admin Lidocaine HCl 2 ml 02/03/24 19:32 02/03/24 19:43 Lidocaine Hcl 1 % Mpf 2 Ml Vial INFILTRATI 02/03/24 19:33 2 ml ONCE ONE Administration Medical Decision Making Medical Decision Making [facility] Narrative: I and D done on the left lower abdominal wall abscess part dressed discharge patient home on continued to doxycycline and Keflex Lab Data 02/03/24 15:57 02/03/24 15:57 Labs: Lab Results 02/03/24 02/03/24 Range/Units 15:57 20:22 WBC 8.1 (4.8-10.8) X10*3/uL RBC 4.86 (4.20-5.50) X10*6/uL Hgb 14.8 (12.0-16.0) g/dl Hct 41.9 (37.0-47.0) % MCV 86.2 (80.0-98.0) fL MCH 30.5 (27.0-33.0) pg MCHC 35.3 H (31.0-35.0) g/dl RDW 12.7 (11.0-16.0) % Plt Count 149 L (160-400) X10*3/uL MPV 11.7 (9.4-12.3) fL Immature Gran % (Auto) 0.4 (0.0-0.4) % Neut % (Auto) 57.5 (45-73) % Lymph % (Auto) 33.5 (20-40) % Otoe % (Auto) 6.2 (2-11) % Eos % (Auto) 1.9 (0-4) % Baso % (Auto) 0.5 (0-2) % Lymph # (Auto) 2.7 (1.2-4.9) X10*3/uL [place] # (Auto) 0.5 (0.1-1.2) X10*3/uL Eos # (Auto) 0.2 (0.0-0.4) X10*3/uL Baso # (Auto) 0.0 (0.0-0.2) X10*3/uL Abs Immat Gran (auto) 0.03 (0.00-0.03) X10*3/uL Absolute Neuts (auto) 4.7 (2.0-8.3) x10*3/uL Absolute Nucleated RBC 0.000 (0.0-0.012) X10*3/uL Nucleated RBC % (auto) 0.0 (0.0-0.2) /100WBC ESR 7 (0-20) MM/HR Sodium 135 (135-145) mmol/L Potassium 4.3 (3.3-5.1) mmol/L Chloride 101 (96-108) mmol/L Carbon Dioxide 23 (22-29) mmol/L Anion Gap 15 (12-20) BUN 10 (9-16) mg/dL Creatinine 0.92 (0.5-1.4) mg/dL Estim Creat Clear Calc 51.0 Estimated GFR > 60 POC Glucose 329 H (60-115) mg/dL Random Glucose 466 H* (60-115) mg/dL Calcium 9.8 (8.4-10.2) mg/dL Magnesium 1.8 (1.6-2.6) mg/dL Total Bilirubin 0.7 (0.0-1.0) mg/dL AST 30 (5-31) U/L ALT 32 H (0-31) U/L Alkaline Phosphatase 175 H (39-117) U/L C-Reactive Protein 0.52 H (< or = 0.50) mg/dL Total Protein 7.7 (6.5-8.0) g/dL Albumin 4.0 (3.5-5.0) g/dL Discharge Plan Discharge Clinical Impression: Abdominal wall abscess Patient Disposition: Home, Self-Care Instructions: Abscess Incision and Drainage (DC) Additional Instructions: Local care as advised Take antibiotics total for 14 days Drink plenty of fluids Take your insulin on time and follow with PCP Prescriptions: New cephalexin 500 mg capsule 500 mg PO QID 7 Days Qty: 28 0RF doxycycline hyclate 100 mg tablet 100 mg PO BID Qty: 14 0RF No Action (DME) blood-glucose meter Kit See Rx Instructions .ROUTE .MEDSUPPLY Qty: 1 0RF Rx Instructions: As directed (DME) Assure ID Pen Needle 30 gauge x 5/16 needle See Rx Instructions .ROUTE .MEDSUPPLY Qty: 100 6RF Rx Instructions: Use 1 pen needle once a day ibuprofen 600 mg tablet 600 mg PO TID PRN (Reason: pain) 90 Days Qty: 270 3RF (DME) blood-glucose meter [FreeStyle Lite Meter] Kit See Rx Instructions .Route Qty: 1 0RF Rx Instructions: test 3 times per day albuterol sulfate 90 mcg/actuation HFA aerosol inhaler 1 - 2 puff inhalation Q4-6H PRN (Reason: for dyspnea) Qty: 8.5 2RF (DME) blood pressure monitor Kit See Rx Instructions .ROUTE .MEDSUPPLY Qty: 1 0RF Rx Instructions: As directed Tradjenta 5 mg tablet 5 mg PO DAILY Qty: 90 2RF cholecalciferol (vitamin D3) 25 mcg (1,000 unit) capsule 25 mcg PO DAILY 90 Days Qty: 90 1RF fenofibrate 54 mg tablet 54 mg PO DAILY 90 Days Qty: 90 1RF (DME) FreeStyle Avi 14 Day Sensor Kit See Rx Instructions .Route Qty: 1 11RF Rx Instructions: As directed (DME) Dexcom G7 Sensor Device See Rx Instructions .Route Qty: 1 11RF Rx Instructions: As directed insulin degludec [Tresiba FlexTouch U-100] 100 unit/mL (3 mL) insulin pen 20 unit subcut DAILY 90 Days Qty: 18 1RF cyanocobalamin (vitamin B-12) 1,000 mcg Tablet 1,000 mcg PO DAILY vitamin B complex Tablet 1 tab PO DAILY alpha lipoic acid 600 mg Capsule 600 mg PO BIDAC oxcarbazepine 600 mg tablet 600 mg PO BEDTIME melatonin 10 mg tablet 10 mg PO BEDTIME PRN (Reason: Sleep) cephalexin 500 mg capsule 500 mg PO TID 7 Days Qty: 21 0RF doxycycline monohydrate 100 mg capsule 100 mg PO BID 7 Days Qty: 14 0RF diazepam 10 mg tablet 10 mg PO BID PRN (Reason: Muscle Spasm) (DME) pen needle, diabetic 31 gauge x 3/16 needle See Rx Instructions topical QID Qty: 50 Rx Instructions: As directed melatonin-pyridoxine HCl (B6) 10-10 mg tablet, IR and ER, biphasic 1 tab PO BEDTIME PRN carisoprodol 350 mg tablet 350 mg PO DAILY PRN (Reason: Muscle Spasm) 30 Days Qty: 30 0RF (DME) pen needle, diabetic [Advocate Pen Needle] 31 gauge x 5/16 needle See Rx Instructions .Route Qty: 100 3RF Rx Instructions: Use 1 pen needle once a day Humalog KwikPen Insulin 200 unit/mL (3 mL) insulin pen 20 unit subcut TID 90 Days Qty: 27 3RF Print Language: Marshallese
[2024-02-03 16:00] LABS: MANUAL DIFF FLAG NO
[2024-02-03 16:03] LABS: Basophils Percent Auto 0.5 % (0-2); Eosinophils Absolute Auto 0.2 X10*3/uL (0.0-0.4); Eosinophils Percent Auto 1.9 % (0-4); Hematocrit 41.9 % (37.0-47.0); Hemoglobin 14.8 g/dl (12.0-16.0); Imm Gran Abs Auto 0.03 X10*3/uL (0.00-0.03); Imm Gran Pct Auto 0.4 % (0.0-0.4); Lymphocytes Absolute Auto 2.7 X10*3/uL (1.2-4.9); Lymphocytes Percent Auto 33.5 % (20-40); Mean Corpuscular HGB Conc 35.3 g/dl (31.0-35.0); Mean Corpuscular Hemoglobin 30.5 pg (27.0-33.0); Mean Corpuscular Volume 86.2 fL (80.0-98.0); Mean Platelet Volume 11.7 fL (9.4-12.3); Monocytes Absolute Auto 0.5 X10*3/uL (0.1-1.2); Monocytes Percent Auto 6.2 % (2-11); Neutrophils Absolute Auto 4.7 x10*3/uL (2.0-8.3); Neutrophils Percent Auto 57.5 % (45-73); Platelet Count 149 X10*3/uL (160-400); Red Blood Count 4.86 X10*6/uL (4.20-5.50); Red Cell Distribution Width 12.7 % (11.0-16.0); White Blood Count 8.1 X10*3/uL (4.8-10.8)
[2024-02-03 16:22] LABS: Alanine Aminotransferase 32 U/L (0-31); Alkaline Phosphatase 175 U/L (39-117); Anion Gap 15 (12-20); Aspartate Amino Transferase 30 U/L (5-31); Bilirubin Total 0.7 mg/dL (0.0-1.0); Blood Urea Nitrogen 10 mg/dL (9-16); C Reactive Protein 0.52 mg/dL (< or = 0.50); Calcium 9.8 mg/dL (8.4-10.2); Carbon Dioxide 23 mmol/L (22-29); Chloride 101 mmol/L (96-108); Estimated Glomerular Filt Rate > 60; Magnesium 1.8 mg/dL (1.6-2.6); Potassium 4.3 mmol/L (3.3-5.1); Sodium 135 mmol/L (135-145); Total Protein 7.7 g/dL (6.5-8.0)
[2024-02-03 16:26] LABS: Glucose Random 466 mg/dL (60-115)
[2024-02-03 16:42] LABS: Erythrocyte Sedimentation Rate 7 MM/HR (0-20)
[2024-02-03 19:34] VITALS: BP 146/75; PULSE 81; RESP 18; TEMP 36.6; O2SAT 97
[2024-02-03] MEDS: Lidocaine HCl 1 % MPF 2 ML VIAL INFILTRATI (19:43)
--- NOTE | 2024-02-03 19:54 | PC.NURSE ---
this rn assumed care of pt, pt a&ox4, respirations even and unlabored. pt reports having large abscess to the lower left abdomen, reports being seen here for it, and getting prescribed antibiotics without relief. pt denies fever chills. at bedside to cut open abscess. pt tolerated well. dry dressing in place. swab obtained by provider and sent to lab.
[2024-02-03 20:26] LABS: Glucose, Whole Blood 329 mg/dL (60-115)
[2024-02-03 20:57] VITALS: BP 149/81; PULSE 89; RESP 17; TEMP 37; O2SAT 98
[2024-02-03] MEDS: Insulin Lispro 100 UNIT/ML 3 ML VIAL 10 UNIT SUBCUT (20:59)
[2024-02-03 21:00] VITALS: BP 149/81; PULSE 89; RESP 17; TEMP 37; O2SAT 98
== END 2024-02-03 21:01 | disposition home or self-care (01) ==
PROVIDERS: Physician Assistant Medical; Emergency Provider Internal Medicine; PCP Internal Medicine
DX: L02.211 Cutaneous abscess of abdominal wall (principal); E11.9 Type 2 diabetes mellitus without complications; I10 Essential (primary) hypertension; Z98.890 Other specified postprocedural states
CPT/HCPCS: 36415; 80053; 82947; 83735; 85025; 85652; 86140; 87070; 87077; 87186; 87205; 99284

== ENCOUNTER 2024-02-17 13:15 | Outpatient (AMB) | payer OTHER, SELFPAY ==
[2024-02-17 13:25] VITALS: BP 119/80; PULSE 91; BMI 28.3
--- NOTE | 2024-02-17 13:25 | MHC.OFFVIS ---
Vital Signs 02/17/24 13:25 Height 4 ft 11 in Weight 140 lb 3.424 oz BMI 28.3 BP 119/80 Blood Pressure Location Lt brachial Position Sitting Pulse 91 Intake Visit Reasons: 4 week follow up Intake Note: Alia presents to in office 4 weeks follow up of labs. CC: Patient states that she was seen in the ER on 02/02 with abdominal pain and was found to have a left lower abdominal abscess that she had drained. Patient was placed on ABX. She states that she was having rectal bleeding after starting abx. 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 Accompanied by: Self / Same As Patient Allergies nickel Allergy (Severe, Verified 02/17/24 13:49) Rash Penicillins Allergy (Severe, Verified 02/17/24 13:49) Hives acetaminophen [Percocet] Allergy (Intermediate, Verified 02/17/24 13:49) vomiting cyclobenzaprine [CYCLOBENZAPRINE] Allergy (Intermediate, Verified 02/17/24 13:49) HEADACHE,DIZZINESS divalproex sodium [Depakote] Allergy (Intermediate, Verified 02/17/24 13:49) increase liver enzymes methocarbamol [METHOCARBAMOL] Allergy (Intermediate, Verified 02/17/24 13:49) TICS oxycodone [From PERCOCET] Allergy (Intermediate, Verified 02/17/24 13:49) VOMITING liraglutide [From Victoza] Adverse Reaction (Severe, Verified 02/17/24 13:49) hypoglycemia lisinopril Adverse Reaction (Severe, Verified 02/17/24 13:49) Dizziness risperidone [RISPERIDONE] Adverse Reaction (Severe, Verified 02/17/24 13:49) CHEST PAIN baclofen Adverse Reaction (Intermediate, Verified 02/17/24 13:49) Palpitations canagliflozin [Invokana] Adverse Reaction (Intermediate, Verified 02/17/24 13:49) confusion dulaglutide [Trulicity] Adverse Reaction (Intermediate, Verified 02/17/24 13:49) abdominal bloating, numbness, myalgia Narcotics Allergy (Mild, Uncoded 01/22/24 10:08) dizzy, sick HPI HPI 4 week follow up: Details: Assessment & Plan (1) Cirrhosis: Comment: BASELINE LABS 01/2018: Total bilirubin 0.6, alk-phos elevated at 134, AST/ALT 37/44, CURRENT LABS 08/03/2303/ 08:3013:[id number] Estimated GFR > 60 Hgb A1c (Clinic) 14 H Total Bilirubin 0.8 AST 27 ALT 29 Alkaline Phosphatase 199 H TSH 3.10 ULTRASOUND OF THE ABDOMEN ORDERED BY PCP 12/10/23 FINDINGS: PANCREAS: Normal. ABDOMINAL AORTA: The proximal, mid, and distal segments are normal in caliber. INFERIOR VENA CAVA: Visualized portions are normal. LIVER: The liver is enlarged. The liver contour is normal. Diffusely increased liver echogenicity. No focal hepatic lesion. There is no intrahepatic biliary duct dilatation seen. GALLBLADDER: Surgically absent. COMMON BILE DUCT: Normal in caliber measuring 0.38 cm in diameter. RIGHT KIDNEY: Normal. No hydronephrosis. No renal calculi or focal parenchymal lesions. The kidney measures 10.6 cm in maximum dimension. LEFT KIDNEY: 1.6 cm simple appearing midpole cyst, stable. No hydronephrosis or renal calculi. The kidney measures 11.3 cm in maximum dimension. SPLEEN: Normal. The spleen measures 11.3 cm in maximum dimension. FREE FLUID: None. US/US abdomen complete IMPRESSION: 1. Diffusely increased liver echogenicity. This is a nonspecific finding but most suggestive of hepatic steatosis. Correlation with liver enzymes recommended. 2. Stable 1.6 cm left renal cyst. CT ABDOMEN AND PELVIS 08/01/23 FINDINGS: LUNG BASES: The visualized lung bases are unremarkable. LIVER, GALLBLADDER, AND BILIARY TREE: The liver is heterogeneous in attenuation and irregular in contour. There is no focal consolidation. There is no intrahepatic biliary duct dilatation. There has been a prior cholecystectomy. PANCREAS: Unremarkable. SPLEEN: Spleen is mildly enlarged measuring up to 14 cm. ADRENAL GLANDS: There bilateral adrenal gland thickening and a 1.4 cm left adrenal nodule.. KIDNEYS AND URETERS: The kidneys are normal in size, shape, and attenuation. There is a 3 mm nonobstructing calculus lower pole left kidney. There is a 1.7 cm cyst upper pole left kidney. There is no hydronephrosis. BLADDER: Unremarkable. GASTROINTESTINAL TRACT: The small and large bowel are unremarkable. The appendix is unremarkable. ABDOMINAL WALL: No significant hernia is appreciated. LYMPH NODES: Normal. VASCULAR: Unremarkable. PELVIC VISCERA: Unremarkable. OSSEOUS STRUCTURES: Unremarkable. CT/CT abdomen pelvis wo IV con IMPRESSION: Heterogeneous irregular liver consistent with hepatocellular disease/cirrhosis. There is mild associated splenomegaly. Obstructing calculus lower pole left kidney. Code(s): K74.60 - Unspecified cirrhosis of liver Category: Medical (2) GERD (gastroesophageal reflux disease): Code(s): K21.9 - Gastro-esophageal reflux disease without esophagitis Category: Medical Qualifiers: Esophagitis presence: esophagitis presence not specified Qualified Code(s): K21.9 - Gastro-esophageal reflux disease without esophagitis (3) Chronic pancreatitis: Code(s): K86.1 - Other chronic pancreatitis Category: Medical Plan This patient was last seen by myself in 2018 and seemingly was lost to follow-up. She no showed for her last appointment. It appears she is being referred for a new problem of cirrhosis. THIS IS A DIABETIC WITH VERY POOR GLUCOSE control her last hemoglobin A1c being over 14%. She says her mother and father of liver failure and were alcoholics. 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 She has a know hx o fNASH, and the big immediately clear variable is her diabetes control. 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 This made her cry. She is on humalog for diabetes. She can not use some meds like ozempic r/ ther chronic pancreatitis. She IS on Tradjenta. She used to be seen at [facility], but they no longer take her insurance. She tells me that she went to [facility] and was dx'ed with a severe Nickel allergy - and she has to avoid many foods. This makes her diet tough. (she likes Adalgisa Hargrove!). I will get some additional tests to make sure there is no other reversible process but the biggest reversible factor controlling the progression of her liver disease is going to be controlling her diabetes. I let her know that since her weight is fairly well controlled and she does not drink this is the 1 modifiable component that needs to be approached. However, given her multiple challenges and insurance limitations her primary care doctor will need to be involved in getting her the appropriate care. ROV 4 weeks. Orders: Orders Alpha Fetoprotein Today Gamma Glutamyl Transpeptidase Today ANAHI Reflex Titer and Pattern Today Liver Fibrosis Pnl Today Mitochondrial Antibody Today Ammonia Today Ferritin Today TSH reflex Free T4 Today Smooth Muscle Antibody Today Hepatitis A,B,C Profile Today HIV Ab/Ag Today LABS: Laboratory Tests 01/20/24 02/03/24 15:39 15:57 WBC 8.1 Plt Count 149 L Magnesium 1.8 Total Bilirubin 0.7 AST 30 ALT 32 H Alkaline Phosphatase 175 H ANAHI Screen NEGATIVE Anti-Mitochondrial Ab NEGATIVE Anti-Smooth Muscle Ab <20 Hepatitis A IgM Ab Nonreactive Hep Bs Antigen Negative Hep Bs Antibody NONREACTIVE Hep B Core Total Ab Nonreactive Hepatitis C Ab (EIA) Nonreactive HIV 1&2 Ab/P24 Ag 4thGn Nonreactive CORRESPONDENCE On 02/08/24 @ 13:31 Rita Leija Wrote To LissDecember Patient had a colonoscopy in 2020 showing moderate internal hemorrhoids and moderate external rectal skin tags which is the likely source of her bleeding. On 02/07/24 @ 15:41 Gerry Menjivar Wrote To LissDecember LVM requesting call back to schedule sooner appt. Gerry Menjivar removed from item. On 02/07/24 @ 14:54 Ananya Hinojosa Wrote To LissDecember (2) Patient LVM on MA line stating that her rectal bleeding is bad and wants a sooner appt. Aware she has one on the - requesting a phone call back. TODAY'S VISIT She was told her sugars are very high in the ER, she presented for an abd wall abscess that required IV abx adn I&D. This is likely the driving pathology for her cirrhosis as well. She is not overly obese. She is now having copious RB from her rectum and LLQ pain that she says is severe. She had a colonoscopy in 2020 that was negative except for moderate hemorrhoids so she is not due for this. I think TICS is more of a concern, but since I can not order stat CT scans I advise her to go to the ER. This is especially true since she already is at risk being a diabetic with poor control and a current abscess that required IV abx. She may need to be admitted. She lost her endocrine, unfortunately, our only endocrine specialist is not currently taking new pts. She will need to coordinate with her PCP, Dr. Buckley to manage her diabetes. ROV 8 weeks. [facility] Medical History Physical exam Vaginal burning Vaginal itching Basilar migraine Hyperlipidemia LDL goal <70 Acute vaginitis Encounter for annual routine gynecological examination Hospital discharge follow-up Shortness of breath COVID-19 Dysuria Vaginal irritation Herpes simplex virus (HSV) infection Intertrigo Diabetes mellitus Diabetes mellitus Migraine with aura Hypertension Renal calculi Chest pain Mixed hyperlipidemia Fibromyalgia Chronic neck pain Nickel allergy Nickel dermatitis Polyarthralgia Surgical History H/O esophagogastroduodenoscopy History of prior ablation treatment History of discectomy History of laparoscopy History of tubal ligation History of colonoscopy History of laparoscopic cholecystectomy History of section Family History Father Prostate cancer Diabetes High cholesterol HTN (hypertension) Mother Liver problem Diabetes High cholesterol HTN (hypertension) Family/Other Diabetes High cholesterol HTN (hypertension) Cancer Social History Household Members: Children Household Members Other:: Son Housing: Apartment Alcohol intake: former Comment: pt refuses bed/chair alarm Patient Tobacco Use Status: Former Tobacco user Tobacco use type: Cigarette Years Smoked: 18 e-Cigarette/Vaping Use: Never Used Second Hand Smoke Exposure: No service: No Current occupational status: disabled Sexual orientation: Straight/Heterosexual Gender identity: Female Cognitive needs: No Hearing needs: No Vision needs: No Review of Systems Const Denies fatigue, Denies fever(s), Denies night sweats, Denies poor appetite and Denies weight loss ENT Reports Normal hearing present, Denies dental pain, Denies dysphagia, Denies hearing loss, Denies mouth pain, Denies odynophagia, Denies throat swelling, Denies tongue swelling and Reports other (Dentition adequate) Card Reports no additional complaints Resp Reports no additional complaints GI Details: Reports abdominal pain, Denies melena, Denies bloating, Reports hematochezia, Denies constipation, Denies GI cramping, Denies dysphagia, Denies excessive flatus, Denies early satiety, Denies heartburn, Denies diarrhea, Denies nausea, Denies odynophagia, Denies vomiting and Denies hematemesis Skin/Breast Denies pruritus, Reports lesions, Denies rash and Denies jaundice Neuro Reports Normal hearing present and Denies Abnormal speech present Psych Reports anxiety Endo Denies fatigue Aller/Immun Denies throat swelling and Denies tongue swelling Physical Exam Vital Signs: Last Vital Signs Pulse 91 02/17/24 13:25 BP 119/80 02/17/24 13:25 BMI result Body Mass Index 28.3 Const General: cooperative, no acute distress, well developed and well groomed Nutritional Appearance: well nourished and overweight Orientation/consciousness: oriented to person, oriented to place and oriented to time Limitations: No language barrier HEENT Head: Yes normocephalic and Yes atraumatic Eyes General: appearance normal, both eyes and all related structures Pupils: Equal, round and reactive pupils present Neck Neck: Yes normal visual inspection and Yes no lymphadenopathy Thyroid: Thyroid normal Resp Effort & Inspection: normal respiratory effort and able to speak in complete sentences Auscultation: clear to auscultation bilaterally Cardio Rate: regular rate Rhythm: regular rhythm Heart sounds: Normal, physiologic split S2 sound present Peripheral pulses: radial pulses present and posterior tibial pulses present GI Inspection: No distended and No Abdominal panniculus present Palpation (GI): Soft to palpation, Tenderness to palpation present (GI) in the LLQ, no guarding, not rigid and No hepatosplenomegaly present Percussion: Yes normal to percussion Auscultation: normal bowel sounds Rectal Exam - Female: deferred Skin General skin exam: no rashes or lesions noted, turgor normal, skin not dry, no jaundice, No spider nevi and no striae Rashes: no rashes Nails: normal Neuro General: oriented to person, oriented to place and oriented to time Cranial nerves: Yes Equal, round and reactive pupils present and Yes Normal hearing present Speech: No Abnormal speech present Extrem General: Yes normal to inspection, No clubbing, No cyanosis and No edema Psych Appearance: grossly normal and well kempt Mental Status: mental status grossly normal Speech and movement: Normal speech and movement present Affect: normal affect Attitude: cooperative Thought process: Normal thought process present and not confabulating Thought content: Normal thought content present Insight: Limited insight present (Psych) Judgement: Limited judgement present (Psych) Assessment & Plan Assessment & Plan (1) Cirrhosis: Comment: BASELINE LABS 01/2018: Total bilirubin 0.6, alk-phos elevated at 134, AST/ALT 37/44, CURRENT LABS 08/03/2303/ 08:3013:4709:41 Estimated GFR > 60 Hgb A1c (Clinic) 14 H Total Bilirubin 0.8 AST 27 ALT 29 Alkaline Phosphatase 199 H TSH 3.10 ULTRASOUND OF THE ABDOMEN ORDERED BY PCP 12/10/23 FINDINGS: PANCREAS: Normal. ABDOMINAL AORTA: The proximal, mid, and distal segments are normal in caliber. INFERIOR VENA CAVA: Visualized portions are normal. LIVER: The liver is enlarged. The liver contour is normal. Diffusely increased liver echogenicity. No focal hepatic lesion. There is no intrahepatic biliary duct dilatation seen. GALLBLADDER: Surgically absent. COMMON BILE DUCT: Normal in caliber measuring 0.38 cm in diameter. RIGHT KIDNEY: Normal. No hydronephrosis. No renal calculi or focal parenchymal lesions. The kidney measures 10.6 cm in maximum dimension. LEFT KIDNEY: 1.6 cm simple appearing midpole cyst, stable. No hydronephrosis or renal calculi. The kidney measures 11.3 cm in maximum dimension. SPLEEN: Normal. The spleen measures 11.3 cm in maximum dimension. FREE FLUID: None. US/US abdomen complete IMPRESSION: 1. Diffusely increased liver echogenicity. This is a nonspecific finding but most suggestive of hepatic steatosis. Correlation with liver enzymes recommended. 2. Stable 1.6 cm left renal cyst. CT ABDOMEN AND PELVIS 08/01/23 FINDINGS: LUNG BASES: The visualized lung bases are unremarkable. LIVER, GALLBLADDER, AND BILIARY TREE: The liver is heterogeneous in attenuation and irregular in contour. There is no focal consolidation. There is no intrahepatic biliary duct dilatation. There has been a prior cholecystectomy. PANCREAS: Unremarkable. SPLEEN: Spleen is mildly enlarged measuring up to 14 cm. ADRENAL GLANDS: There bilateral adrenal gland thickening and a 1.4 cm left adrenal nodule.. KIDNEYS AND URETERS: The kidneys are normal in size, shape, and attenuation. There is a 3 mm nonobstructing calculus lower pole left kidney. There is a 1.7 cm cyst upper pole left kidney. There is no hydronephrosis. BLADDER: Unremarkable. GASTROINTESTINAL TRACT: The small and large bowel are unremarkable. The appendix is unremarkable. ABDOMINAL WALL: No significant hernia is appreciated. LYMPH NODES: Normal. VASCULAR: Unremarkable. PELVIC VISCERA: Unremarkable. OSSEOUS STRUCTURES: Unremarkable. CT/CT abdomen pelvis wo IV con IMPRESSION: Heterogeneous irregular liver consistent with hepatocellular disease/cirrhosis. There is mild associated splenomegaly. Obstructing calculus lower pole left kidney. Code(s): K74.60 - Unspecified cirrhosis of liver Category: Medical (2) GERD (gastroesophageal reflux disease): Code(s): K21.9 - Gastro-esophageal reflux disease without esophagitis Category: Medical Qualifiers: Esophagitis presence: esophagitis presence not specified Qualified Code(s): K21.9 - Gastro-esophageal reflux disease without esophagitis (3) Chronic pancreatitis: Code(s): K86.1 - Other chronic pancreatitis Category: Medical (4) Rectal bleeding: Code(s): K62.5 - Hemorrhage of anus and rectum Category: Medical (5) Left lower quadrant abdominal pain: Code(s): R10.32 - Left lower quadrant pain Category: Medical Plan She was told her sugars are very high in the ER, she presented for an abd wall abscess that required IV abx adn I&D. This is likely the driving pathology for her cirrhosis as well. She is not overly obese. She is now having copious RB from her rectum and LLQ pain that she says is severe. She had a colonoscopy in 2020 that was negative except for moderate hemorrhoids so she is not due for this. I think TICS is more of a concern, but since I can not order stat CT scans I advise her to go to the ER. This is especially true since she already is at risk being a diabetic with poor control and a current abscess that required IV abx. She may need to be admitted. She lost her endocrine, unfortunately, our only endocrine specialist is not currently taking new pts. She will need to coordinate with her PCP, Dr. Buckley to manage her diabetes. ROV 8 weeks. Coding Level of Care Code Est Pt Level 3 (81728) Diagnoses Cirrhosis K74.60 Gastroesophageal reflux disease, unspecified whether esophagitis present K21.9 Esophagitis presence: esophagitis presence not specified Chronic pancreatitis K86.1 Rectal bleeding K62.5 Left lower quadrant abdominal pain R10.32
== END 2024-02-17 14:19 | disposition home or self-care (01) ==
PROVIDERS: PCP Internal Medicine; Visit Provider Nurse Practitioner
DX: K74.60 Unspecified cirrhosis of liver (principal); K21.9 Gastro-esophageal reflux disease without esophagitis; K86.1 Other chronic pancreatitis; K62.5 Hemorrhage of anus and rectum; R10.32 Left lower quadrant pain
CPT/HCPCS: 99213

== ENCOUNTER → 2024-02-17 13:15 | Outpatient (BNVA) | payer OTHER, SELFPAY | PROVIDERS: PCP Internal Medicine; Visit Provider Nurse Practitioner | DX: K74.60 Unspecified cirrhosis of liver (principal); K21.9 Gastro-esophageal reflux disease without esophagitis; K86.1 Other chronic pancreatitis; R10.32 Left lower quadrant pain | CPT/HCPCS: 99212 ==

== ENCOUNTER 2024-04-06 12:44 | Outpatient (AMB) | payer OTHER, SELFPAY ==
--- NOTE | 2024-04-06 13:06 | MHC.PC.OV ---
Vital Signs 04/06/24 13:11 Height 4 ft 11 in Weight 140 lb BMI 28.3 BP 122/80 Blood Pressure Location Lt brachial Position Sitting Intake Visit Reasons: 4mth f/u + NEEDS A1C Intake Note: Patient here for a 4 month follow up Coat Padder Required: No Accompanied by: Self / Same As Patient Allergies nickel Allergy (Severe, Verified 04/06/24 13:15) Rash Penicillins Allergy (Severe, Verified 04/06/24 13:15) Hives acetaminophen [Percocet] Allergy (Intermediate, Verified 04/06/24 13:15) vomiting cyclobenzaprine [CYCLOBENZAPRINE] Allergy (Intermediate, Verified 04/06/24 13:15) HEADACHE,DIZZINESS divalproex sodium [Depakote] Allergy (Intermediate, Verified 04/06/24 13:15) increase liver enzymes methocarbamol [METHOCARBAMOL] Allergy (Intermediate, Verified 04/06/24 13:15) TICS oxycodone [From PERCOCET] Allergy (Intermediate, Verified 04/06/24 13:15) VOMITING insulin degludec [From Tresiba FlexTouch U-100] Adverse Reaction (Severe, Verified 04/06/24 13:19) loss of balance, body aches liraglutide [From Victoza] Adverse Reaction (Severe, Verified 04/06/24 13:15) hypoglycemia lisinopril Adverse Reaction (Severe, Verified 04/06/24 13:15) Dizziness risperidone [RISPERIDONE] Adverse Reaction (Severe, Verified 04/06/24 13:15) CHEST PAIN baclofen Adverse Reaction (Intermediate, Verified 04/06/24 13:15) Palpitations canagliflozin [Invokana] Adverse Reaction (Intermediate, Verified 04/06/24 13:15) confusion dulaglutide [Trulicity] Adverse Reaction (Intermediate, Verified 04/06/24 13:15) abdominal bloating, numbness, myalgia Narcotics Allergy (Mild, Uncoded 01/22/24 10:08) dizzy, sick Tobacco use date assessed: 12/02/23 Dental Screening Dental Screen Date: 12/02/23 HPI HPI Comments History of Present Illness Details This is a 63-year-old female with bipolar disorder, cirrhosis, diabetes mellitus type 2 on long-term current use of insulin and mixed hyperlipidemia that comes today for follow-up on her conditions. Complains of diffuse joint pain. Bipolar disorder is follow by Psychiatry. Cirrhosis is follow by Gastroenterology. A1c elevated and she discontinue Tresiba due to loss of balance which is still happening. I will start her on Lantus. Patient does not want to see endocrinology at the moment. Last LDL was not on goal and she is not even sure if she is taking fenofibrate. I did send it to the pharmacy. LDL will be repeated. [facility] Medical History (Updated 04/06/24 @ 16:49 by An Aguilar MD) Physical exam Vaginal burning Vaginal itching Basilar migraine Hyperlipidemia LDL goal <70 Acute vaginitis Encounter for annual routine gynecological examination Hospital discharge follow-up Shortness of breath COVID-19 Dysuria Vaginal irritation Herpes simplex virus (HSV) infection Intertrigo Diabetes mellitus Diabetes mellitus Migraine with aura Hypertension Renal calculi Chest pain Mixed hyperlipidemia Fibromyalgia Chronic neck pain Nickel allergy Nickel dermatitis Polyarthralgia Surgical History H/O esophagogastroduodenoscopy History of prior ablation treatment History of discectomy History of laparoscopy History of tubal ligation History of colonoscopy History of laparoscopic cholecystectomy History of section Family History Father Prostate cancer Diabetes High cholesterol HTN (hypertension) Mother Liver problem Diabetes High cholesterol HTN (hypertension) Family/Other Diabetes High cholesterol HTN (hypertension) Cancer Social History Household Members: Children Household Members Other:: Son Housing: Apartment Alcohol intake: former Comment: pt refuses bed/chair alarm Patient Tobacco Use Status: Former Tobacco user Tobacco use type: Cigarette Years Smoked: 18 e-Cigarette/Vaping Use: Never Used Second Hand Smoke Exposure: No service: No Current occupational status: disabled Sexual orientation: Straight/Heterosexual Gender identity: Female Cognitive needs: No Hearing needs: No Vision needs: No Questionnaire Thrive Questionnaire Date Thrive assessed: 12/02/23 ABBY-7 AMB Questionnaire ABBY-7 Date ABBY - 7 assessed: 12/02/23 Source: Developed by Drs. Frank Kay, Drea Griggs, Diego Corcoran and colleagues, with an educational javier from [employer]. Review of Systems Const All systems reviewed & are unremarkable except as noted in HPI and below Card Denies chest pain at rest, Denies chest pain with activity, Denies edema, Denies irregular heart rhythm, Denies claudication, Denies dyspnea, Denies dyspnea on exertion, Denies orthopnea, Denies paroxysmal nocturnal dyspnea and Denies slow heart rate Resp Denies cough, Denies dyspnea and Denies dyspnea on exertion GI Denies abdominal pain, Denies change in bowel habits, Denies excessive flatus, Denies nausea and Denies vomiting Denies urinary incontinence, Denies urinary hesitancy and Denies urinary urgency Musc Denies atrophy, Denies deformity, Reports arthralgias and Denies limited range of motion Skin/Breast Denies bleeding lesions, Denies changing lesions and Denies rash Physical exam (Primary Care) Vital Signs: Last Vital Signs BP 122/80 04/06/24 13:11 BMI result Body Mass Index 28.3 Tobacco/Smoking Status: Tobacco use Status Tobacco use date assessed 12/02/23 04/06/24 13:08 Patient Tobacco Use Status Former Tobacco user 04/06/24 13:08 Tobacco use type Cigarette 04/06/24 13:08 e-Cigarette/Vaping Use Never Used 04/06/24 13:08 Thrive Assessment: Date of Thrive Assessment Date Thrive assessed 12/02/23 04/06/24 13:08 Resp Effort & Inspection: normal respiratory effort Auscultation: clear to auscultation bilaterally Cardio Jugular venous distension: no JVD Rate: regular rate Rhythm: regular rhythm Heart sounds: S1 normal heart sound present and S2 normal heart sound present Extrem General: Yes full ROM Results AMB Hemoglobin A1c AMB Hemoglobin A1c 13.5 % Last Edit by CHAI Washburn on 04/06/24 13:28 Results Reviewed Results Reviewed: Laboratory Last Values Hgb A1c (Clinic) 13.5 % (4.0-6.0) H 04/06/24 13:06 Assessment and Plan Assessment & Plan (1) Bipolar disorder: Code(s): F31.9 - Bipolar disorder, unspecified Qualifiers: Active/Remission status: remission status unspecified Qualified Code(s): F31.9 - Bipolar disorder, unspecified Plan: Continue ox carbamazepine. Follow-up with psychiatry. (2) Mixed hyperlipidemia: Code(s): E78.2 - Mixed hyperlipidemia Plan: Continue fenofibrate. Repeat lipid panel. LDL goal is less than 70. Start low-cholesterol diet. (3) Long-term current use of insulin for diabetes mellitus: Code(s): Z79.4 - supervisor 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s (current) use of insulin; E11.9 - Type 2 diabetes mellitus without complications Plan: Continue short-acting insulin. Start Lantus. Continue Tradjenta. A1c goal is equal or less than 7%. (4) Cirrhosis: Comment: BASELINE LABS 01/2018: Total bilirubin 0.6, alk-phos elevated at 134, AST/ALT 37/44, CURRENT LABS 08/03/2303/ 08:3013:4709:41 Estimated GFR > 60 Hgb A1c (Clinic) 14 H Total Bilirubin 0.8 AST 27 ALT 29 Alkaline Phosphatase 199 H TSH 3.10 ULTRASOUND OF THE ABDOMEN ORDERED BY PCP 12/10/23 FINDINGS: PANCREAS: Normal. ABDOMINAL AORTA: The proximal, mid, and distal segments are normal in caliber. INFERIOR VENA CAVA: Visualized portions are normal. LIVER: The liver is enlarged. The liver contour is normal. Diffusely increased liver echogenicity. No focal hepatic lesion. There is no intrahepatic biliary duct dilatation seen. GALLBLADDER: Surgically absent. COMMON BILE DUCT: Normal in caliber measuring 0.38 cm in diameter. RIGHT KIDNEY: Normal. No hydronephrosis. No renal calculi or focal parenchymal lesions. The kidney measures 10.6 cm in maximum dimension. LEFT KIDNEY: 1.6 cm simple appearing midpole cyst, stable. No hydronephrosis or renal calculi. The kidney measures 11.3 cm in maximum dimension. SPLEEN: Normal. The spleen measures 11.3 cm in maximum dimension. FREE FLUID: None. US/US abdomen complete IMPRESSION: 1. Diffusely increased liver echogenicity. This is a nonspecific finding but most suggestive of hepatic steatosis. Correlation with liver enzymes recommended. 2. Stable 1.6 cm left renal cyst. CT ABDOMEN AND PELVIS 08/01/23 FINDINGS: LUNG BASES: The visualized lung bases are unremarkable. LIVER, GALLBLADDER, AND BILIARY TREE: The liver is heterogeneous in attenuation and irregular in contour. There is no focal consolidation. There is no intrahepatic biliary duct dilatation. There has been a prior cholecystectomy. PANCREAS: Unremarkable. SPLEEN: Spleen is mildly enlarged measuring up to 14 cm. ADRENAL GLANDS: There bilateral adrenal gland thickening and a 1.4 cm left adrenal nodule.. KIDNEYS AND URETERS: The kidneys are normal in size, shape, and attenuation. There is a 3 mm nonobstructing calculus lower pole left kidney. There is a 1.7 cm cyst upper pole left kidney. There is no hydronephrosis. BLADDER: Unremarkable. GASTROINTESTINAL TRACT: The small and large bowel are unremarkable. The appendix is unremarkable. ABDOMINAL WALL: No significant hernia is appreciated. LYMPH NODES: Normal. VASCULAR: Unremarkable. PELVIC VISCERA: Unremarkable. OSSEOUS STRUCTURES: Unremarkable. CT/CT abdomen pelvis wo IV con IMPRESSION: Heterogeneous irregular liver consistent with hepatocellular disease/cirrhosis. There is mild associated splenomegaly. Obstructing calculus lower pole left kidney. Code(s): K74.60 - Unspecified cirrhosis of liver Qualifiers: Hepatic cirrhosis type: other cirrhosis Qualified Code(s): K74.69 - Other cirrhosis of liver Plan: Follow-up with Gastroenterology. Orders: Orders Lipid Panel Today E78.5 - Hyperlipidemia, unspecified Erythrocyte Sedimentation Rate Today M25.50 - Pain in unspecified joint AMB Hemoglobin A1c Today E11.9 - Type 2 diabetes mellitus without complications, Z79.4 - [facility] (current) use of insulin Vitamin D 25-OH Total Today E55.9 - Vitamin D deficiency, unspecified Vitamin B12 and Folate Today E53.8 - Deficiency of other specified B group vitamins Microalbumin, Random (w Creat) Today E11.9 - Type 2 diabetes mellitus without complications Comprehensive [place]. Panel Fast Today E11.9 - Type 2 diabetes mellitus without complications, Z79.4 - supervisor 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s (current) use of insulin Rheumatoid Factor Today M25.50 - Pain in unspecified joint Cyclic Citrullinated Peptide Today M25.50 - Pain in unspecified joint Medications: New insulin glargine (Lantus Solostar U-100 Insulin) 20 units (0.2 mL) subcut QAM 18 mL 1RF 90 days E11.9 - Type 2 diabetes mellitus without complications, Z79.4 - [facility] (current) use of insulin Refilled fenofibrate 54 mg PO DAILY 90 tabs 1RF 90 days carisoprodol 350 mg PO DAILY PRN 30 tabs 0RF Muscle Spasm 30 days Coding Level of Care Code Est Pt Level 4 (66373) Complex EM visit Add On [id number] Diagnoses Bipolar affective disorder, remission status unspecified F31.9 Active/Remission status: remission status unspecified Mixed hyperlipidemia E78.2 Long-term current use of insulin for diabetes mellitus Z79.4; E11.9 Other cirrhosis of liver K74.69 Hepatic cirrhosis type: other cirrhosis Time Spent (min) 24
[2024-04-06 13:11] VITALS: BP 122/80; BMI 28.3
== END 2024-04-06 13:47 | disposition home or self-care (01) ==
PROVIDERS: PCP Internal Medicine; Visit Provider Internal Medicine
DX: E11.9 Type 2 diabetes mellitus without complications (principal); F31.9 Bipolar disorder, unspecified; Z79.4 Long term (current) use of insulin; K74.69 Other cirrhosis of liver; E78.2 Mixed hyperlipidemia
CPT/HCPCS: 83036; 99214; G2211

== ENCOUNTER 2024-04-06 13:53 | Outpatient (REF) | payer OTHER, SELFPAY ==
[2024-04-06 15:29] LABS: Rheumatoid Factor < 13.0 IU/mL (<15.0)
[2024-04-06 15:34] LABS: Alanine Aminotransferase 41 U/L (0-31); Alkaline Phosphatase 169 U/L (39-117); Anion Gap 16 (12-20); Aspartate Amino Transferase 38 U/L (5-31); Bilirubin Total 0.7 mg/dL (0.0-1.0); Blood Urea Nitrogen 8 mg/dL (9-16); Calcium 9.3 mg/dL (8.4-10.2); Carbon Dioxide 25 mmol/L (22-29); Chloride 100 mmol/L (96-108); Cholesterol 210 mg/dL (<200); Estimated Glomerular Filt Rate > 60; Glucose Fasting 341 mg/dL (60-99); HDL Cholesterol 37 mg/dL (>40); LDL Cholesterol Calculated 113 mg/dL (<100); Sodium 137 mmol/L (135-145); Total Protein 7.4 g/dL (6.5-8.0); Triglycerides 304 mg/dL (<150)
[2024-04-06 15:41] LABS: Erythrocyte Sedimentation Rate 17 MM/HR (0-20)
[2024-04-06 15:48] LABS: Vitamin D 25-OH Total 27.4 ng/mL (>30)
[2024-04-06 16:01] LABS: Folate 11.7 ng/mL (> or = 4.0); Vitamin B12 587 pg/mL (200-900)
[2024-04-06 17:36] LABS: Creatinine Urine 108.74 mg/dL; Microalbum/Creatinine Ratio Ur 18.3 ug/mg cr (<30)
[2024-04-11 09:13] LABS: Cyclic Citrullinated Peptide <16 UNITS
== END 2024-04-06 13:54 | disposition home or self-care (01) ==
LOC: HO.LAB 13:53
PROVIDERS: PCP Internal Medicine; Visit Provider Internal Medicine
DX: E11.9 Type 2 diabetes mellitus without complications (principal); M25.50 Pain in unspecified joint; E53.8 Deficiency of other specified B group vitamins; E78.5 Hyperlipidemia, unspecified; E55.9 Vitamin D deficiency, unspecified; Z79.4 Long term (current) use of insulin
CPT/HCPCS: 36415; 80053; 80061; 82043; 82306; 82570; 82607; 82746; 85652; 86200; 86431

== ENCOUNTER 2024-04-18 13:02 | Outpatient (AMB) | payer OTHER, SELFPAY ==
--- NOTE | 2024-04-18 13:03 | A.OFFVIS_ITS ---
Vital Signs 04/18/24 13:04 Height 4 ft 11 in Weight 141 lb BMI 28.5 BP 118/70 Blood Pressure Location Rt brachial Position Sitting Pulse 96 Intake Visit Reasons: 2 month follow up ? TICS LLQ pain, RB, BURNETT Intake Note: Alia presents to in office follow up of cirrhosis. CC: Patient states that she would like to have EGD and colonoscopy. She c/o abdominal pain and abdominal bloating. Tyre Fitter Required: No Accompanied by: Self / Same As Patient Allergies insulin glargine [From Lantus U-100 Insulin] Allergy (Severe, Verified 04/18/24 13:16) paralized nickel Allergy (Severe, Verified 04/18/24 13:16) Rash Penicillins Allergy (Severe, Verified 04/18/24 13:16) Hives acetaminophen [Percocet] Allergy (Intermediate, Verified 04/18/24 13:16) vomiting cyclobenzaprine [CYCLOBENZAPRINE] Allergy (Intermediate, Verified 04/18/24 13:16) HEADACHE,DIZZINESS divalproex sodium [Depakote] Allergy (Intermediate, Verified 04/18/24 13:16) increase liver enzymes methocarbamol [METHOCARBAMOL] Allergy (Intermediate, Verified 04/18/24 13:16) TICS oxycodone [From PERCOCET] Allergy (Intermediate, Verified 04/18/24 13:16) VOMITING insulin degludec [From Tresiba FlexTouch U-100] Adverse Reaction (Severe, Verified 04/18/24 13:16) loss of balance, body aches liraglutide [From Victoza] Adverse Reaction (Severe, Verified 04/18/24 13:16) hypoglycemia lisinopril Adverse Reaction (Severe, Verified 04/18/24 13:16) Dizziness risperidone [RISPERIDONE] Adverse Reaction (Severe, Verified 04/18/24 13:16) CHEST PAIN baclofen Adverse Reaction (Intermediate, Verified 04/18/24 13:16) Palpitations canagliflozin [Invokana] Adverse Reaction (Intermediate, Verified 04/18/24 13:16) confusion dulaglutide [Trulicity] Adverse Reaction (Intermediate, Verified 04/18/24 13:16) abdominal bloating, numbness, myalgia Narcotics Allergy (Mild, Uncoded 01/22/24 10:08) dizzy, sick HPI HPI 2 month follow up ? TICS LLQ pain, RB, BURNETT: Details: Assessment & Plan (1) Cirrhosis: Comment: BASELINE LABS 01/2018: Total bilirubin 0.6, alk-phos elevated at 134, AST/ALT 37/44, CURRENT LABS 08/03/2303/ 08:3013:[id number]:41 Estimated GFR > 60 Hgb A1c (Clinic) 14 H Total Bilirubin 0.8 AST 27 ALT 29 Alkaline Phosphatase 199 H TSH 3.10 ULTRASOUND OF THE ABDOMEN ORDERED BY PCP 12/10/23 FINDINGS: PANCREAS: Normal. ABDOMINAL AORTA: The proximal, mid, and distal segments are normal in caliber. INFERIOR VENA CAVA: Visualized portions are normal. LIVER: The liver is enlarged. The liver contour is normal. Diffusely increased liver echogenicity. No focal hepatic lesion. There is no intrahepatic biliary duct dilatation seen. GALLBLADDER: Surgically absent. COMMON BILE DUCT: Normal in caliber measuring 0.38 cm in diameter. RIGHT KIDNEY: Normal. No hydronephrosis. No renal calculi or focal parenchymal lesions. The kidney measures 10.6 cm in maximum dimension. LEFT KIDNEY: 1.6 cm simple appearing midpole cyst, stable. No hydronephrosis or renal calculi. The kidney measures 11.3 cm in maximum dimension. SPLEEN: Normal. The spleen measures 11.3 cm in maximum dimension. FREE FLUID: None. US/US abdomen complete IMPRESSION: 1. Diffusely increased liver echogenicity. This is a nonspecific finding but most suggestive of hepatic steatosis. Correlation with liver enzymes recommended. 2. Stable 1.6 cm left renal cyst. CT ABDOMEN AND PELVIS 08/01/23 FINDINGS: LUNG BASES: The visualized lung bases are unremarkable. LIVER, GALLBLADDER, AND BILIARY TREE: The liver is heterogeneous in attenuation and irregular in contour. There is no focal consolidation. There is no intrahepatic biliary duct dilatation. There has been a prior cholecystectomy. PANCREAS: Unremarkable. SPLEEN: Spleen is mildly enlarged measuring up to 14 cm. ADRENAL GLANDS: There bilateral adrenal gland thickening and a 1.4 cm left adrenal nodule.. KIDNEYS AND URETERS: The kidneys are normal in size, shape, and attenuation. There is a 3 mm nonobstructing calculus lower pole left kidney. There is a 1.7 cm cyst upper pole left kidney. There is no hydronephrosis. BLADDER: Unremarkable. GASTROINTESTINAL TRACT: The small and large bowel are unremarkable. The appendix is unremarkable. ABDOMINAL WALL: No significant hernia is appreciated. LYMPH NODES: Normal. VASCULAR: Unremarkable. PELVIC VISCERA: Unremarkable. OSSEOUS STRUCTURES: Unremarkable. CT/CT abdomen pelvis wo IV con IMPRESSION: Heterogeneous irregular liver consistent with hepatocellular disease/cirrhosis. There is mild associated splenomegaly. Obstructing calculus lower pole left kidney. Code(s): K74.60 - Unspecified cirrhosis of liver Category: Medical (2) GERD (gastroesophageal reflux disease): Code(s): K21.9 - Gastro-esophageal reflux disease without esophagitis Category: Medical Qualifiers: Esophagitis presence: esophagitis presence not specified Qualified Code(s): K21.9 - Gastro-esophageal reflux disease without esophagitis (3) Chronic pancreatitis: Code(s): K86.1 - Other chronic pancreatitis Category: Medical (4) Rectal bleeding: Code(s): K62.5 - Hemorrhage of anus and rectum Category: Medical (5) Left lower quadrant abdominal pain: Code(s): R10.32 - Left lower quadrant pain Category: Medical Plan She was told her sugars are very high in the ER, she presented for an abd wall abscess that required IV abx adn I&D. This is likely the driving pathology for her cirrhosis as well. She is not overly obese. She is now having copious RB from her rectum and LLQ pain that she says is severe. She had a colonoscopy in 2020 that was negative except for moderate hemorrhoids so she is not due for this. I think TICS is more of a concern, but since I can not order stat CT scans I advise her to go to the ER. This is especially true since she already is at risk being a diabetic with poor control and a current abscess that required IV abx. She may need to be admitted. She lost her endocrine, unfortunately, our only endocrine specialist is not currently taking new pts. She will need to coordinate with her PCP, Dr. Buckley to manage her diabetes. ROV 8 weeks. TODAY'S VISIT (she likes Adalgisa Hargrove!) She is having pain in the right lower abdomen just to the right and below the umbilicus. She says her stools are green, but she does not feel that she is having CIC. The pain keeps her awake at night, it is not there during the day but onsets around 7-7:30 pm. The pain starts more gradually and then increases. She will have to lay on her side but the pain is helped with little bit tea and ice. The pain is worse with red meats, fried foods, cheese, bland and rice - the pain is better with salads Her sugars continue to run very high, they stopped all of her lantus insulin r/t abd swelling and leg swelling recently. She will be seeing an endocrinolgist at [address] [place] [address] drive next week. She continues on humolog. She thought she needed a repeat colonoscopy, but she had this and an EGD in 2020 - and this would likely not be the most productive study in terms of an actual diagnosis given her pain. She has a strong family history of appendicitis so I think a CT scan is in order. I am also going to get some repeat blood work. She has an elevated alk-phos and is status post cholecystectomy so this could be Paget's disease but I also will screen her for primary biliary cholangitis. She tells me that her daughter has primary biliary cholangitis. Right now reluctant to give her a trial of dicyclomine because she has had a recent allergic reaction? And it will be more important for her personal clothing laundry aide to be able to prescribe medications and see how she reacts. Once this is established and she has this under control will consider if I can safely add some GI medications if we find that the problem is functional and not anything too serious. She does not feel like she is having any constipation or severe diarrhea. Since it is also possible this is referred pain I will get an x-ray of the thoracic and lumbar spine. Return office visit in 4 weeks [facility] Medical History Diabetes mellitus Physical exam Vaginal burning Vaginal itching Basilar migraine Hyperlipidemia LDL goal <70 Acute vaginitis Encounter for annual routine gynecological examination Hospital discharge follow-up Shortness of breath COVID-19 Dysuria Vaginal irritation Herpes simplex virus (HSV) infection Intertrigo Diabetes mellitus Migraine with aura Hypertension Renal calculi Chest pain Mixed hyperlipidemia Fibromyalgia Chronic neck pain Nickel allergy Nickel dermatitis Polyarthralgia Surgical History H/O esophagogastroduodenoscopy History of prior ablation treatment History of discectomy History of laparoscopy History of tubal ligation History of colonoscopy History of laparoscopic cholecystectomy History of section Family History Father Prostate cancer Diabetes High cholesterol HTN (hypertension) Mother Liver problem Diabetes High cholesterol HTN (hypertension) Family/Other Diabetes High cholesterol HTN (hypertension) Cancer Social History Household Members: Children Household Members Other:: Son Housing: Apartment Alcohol intake: former Comment: pt refuses bed/chair alarm Patient Tobacco Use Status: Former Tobacco user Tobacco use type: Cigarette Years Smoked: 18 e-Cigarette/Vaping Use: Never Used Second Hand Smoke Exposure: No service: No Current occupational status: disabled Sexual orientation: Straight/Heterosexual Gender identity: Female Cognitive needs: No Hearing needs: No Vision needs: No Review of Systems Const Reports excessive sweating, Reports fatigue, Denies fever(s), Reports lethargy, Denies night sweats, Denies poor appetite and Denies weight loss ENT Reports Normal hearing present, Denies dental pain, Denies dysphagia, Denies hearing loss, Denies mouth pain, Denies odynophagia, Denies throat swelling, Denies tongue swelling and Reports other (Dentition adequate) Card Reports no additional complaints Resp Reports no additional complaints GI Details: Reports abdominal pain, Denies melena, Reports bloating, Denies hematochezia, Denies constipation, Denies GI cramping, Denies dysphagia, Denies excessive flatus, Denies early satiety, Reports heartburn, Denies diarrhea, Denies nausea, Denies odynophagia, Denies vomiting and Denies hematemesis Details: Urinary frequency Musc Reports back pain, Reports myalgias, Reports arthralgias and Reports radiating pain into limb (right leg numbness) Skin/Breast Denies pruritus, Denies lesions, Denies rash and Denies jaundice Neuro Reports Normal hearing present and Denies Abnormal speech present Psych Reports anxiety Endo Reports excessive sweating, Reports fatigue and Reports polyuria Aller/Immun Reports urticaria, Denies throat swelling, Denies tongue swelling and Reports o ther (Episode of leg swelling) Physical Exam Vital Signs: Last Vital Signs Pulse 96 04/18/24 13:04 BP 118/70 04/18/24 13:04 BMI result Body Mass Index 28.5 Const General: cooperative, no acute distress, well developed and well groomed Nutritional Appearance: well nourished and obese Orientation/consciousness: oriented to person, oriented to place and oriented to time Limitations: No language barrier HEENT Head: Yes normocephalic and Yes atraumatic Eyes General: appearance normal, both eyes and all related structures Pupils: Equal, round and reactive pupils present Neck Neck: Yes normal visual inspection and Yes no lymphadenopathy Thyroid: Thyroid normal Resp Effort & Inspection: normal respiratory effort and able to speak in complete sentences Auscultation: clear to auscultation bilaterally Cardio Rate: regular rate Rhythm: regular rhythm Heart sounds: Normal, physiologic split S2 sound present Peripheral pulses: radial pulses present and posterior tibial pulses present GI Inspection: No distended, No Abdominal panniculus present and Yes obesity Palpation (GI): Soft to palpation, Tenderness to palpation present (GI) in the RLQ, no guarding, not rigid and No hepatosplenomegaly present Percussion: Yes normal to percussion Auscultation: normal bowel sounds Rectal Exam - Female: deferred Skin General skin exam: no rashes or lesions noted, turgor normal, skin not dry, no jaundice, No spider nevi and no striae Rashes: no rashes Nails: normal Neuro General: oriented to person, oriented to place and oriented to time Cranial nerves: Yes Equal, round and reactive pupils present and Yes Normal hearing present Speech: No Abnormal speech present Extrem General: Yes normal to inspection, No clubbing, No cyanosis and No edema Psych Appearance: grossly normal and well kempt Mental Status: mental status grossly normal Speech and movement: Normal speech and movement present Affect: normal affect Attitude: cooperative Thought process: Normal thought process present and not confabulating Thought content: Normal thought content present Insight: Fair insight present (Psych) Judgement: Fair judgement present (Psych) Assessment & Plan Assessment & Plan (1) Erosive gastritis: Code(s): K29.60 - Other gastritis without bleeding Category: Medical (2) Cirrhosis: Comment: BASELINE LABS 01/2018: Total bilirubin 0.6, alk-phos elevated at 134, AST/ALT 37/44, CURRENT LABS 08/03/2303/ 08:3013:4709:41 Estimated GFR > 60 Hgb A1c (Clinic) 14 H Total Bilirubin 0.8 AST 27 ALT 29 Alkaline Phosphatase 199 H TSH 3.10 ULTRASOUND OF THE ABDOMEN ORDERED BY PCP 12/10/23 FINDINGS: PANCREAS: Normal. ABDOMINAL AORTA: The proximal, mid, and distal segments are normal in caliber. INFERIOR VENA CAVA: Visualized portions are normal. LIVER: The liver is enlarged. The liver contour is normal. Diffusely increased liver echogenicity. No focal hepatic lesion. There is no intrahepatic biliary duct dilatation seen. GALLBLADDER: Surgically absent. COMMON BILE DUCT: Normal in caliber measuring 0.38 cm in diameter. RIGHT KIDNEY: Normal. No hydronephrosis. No renal calculi or focal parenchymal lesions. The kidney measures 10.6 cm in maximum dimension. LEFT KIDNEY: 1.6 cm simple appearing midpole cyst, stable. No hydronephrosis or renal calculi. The kidney measures 11.3 cm in maximum dimension. SPLEEN: Normal. The spleen measures 11.3 cm in maximum dimension. FREE FLUID: None. US/US abdomen complete IMPRESSION: 1. Diffusely increased liver echogenicity. This is a nonspecific finding but most suggestive of hepatic steatosis. Correlation with liver enzymes recommended. 2. Stable 1.6 cm left renal cyst. CT ABDOMEN AND PELVIS 08/01/23 FINDINGS: LUNG BASES: The visualized lung bases are unremarkable. LIVER, GALLBLADDER, AND BILIARY TREE: The liver is heterogeneous in attenuation and irregular in contour. There is no focal consolidation. There is no intrahepatic biliary duct dilatation. There has been a prior cholecystectomy. PANCREAS: Unremarkable. SPLEEN: Spleen is mildly enlarged measuring up to 14 cm. ADRENAL GLANDS: There bilateral adrenal gland thickening and a 1.4 cm left adrenal nodule.. KIDNEYS AND URETERS: The kidneys are normal in size, shape, and attenuation. There is a 3 mm nonobstructing calculus lower pole left kidney. There is a 1.7 cm cyst upper pole left kidney. There is no hydronephrosis. BLADDER: Unremarkable. GASTROINTESTINAL TRACT: The small and large bowel are unremarkable. The appendix is unremarkable. ABDOMINAL WALL: No significant hernia is appreciated. LYMPH NODES: Normal. VASCULAR: Unremarkable. PELVIC VISCERA: Unremarkable. OSSEOUS STRUCTURES: Unremarkable. CT/CT abdomen pelvis wo IV con IMPRESSION: Heterogeneous irregular liver consistent with hepatocellular disease/cirrhosis. There is mild associated splenomegaly. Obstructing calculus lower pole left kidney. Code(s): K74.60 - Unspecified cirrhosis of liver Category: Medical Qualifiers: Hepatic cirrhosis type: other cirrhosis Qualified Code(s): K74.69 - Other cirrhosis of liver (3) GERD (gastroesophageal reflux disease): Code(s): K21.9 - Gastro-esophageal reflux disease without esophagitis Category: Medical Qualifiers: Esophagitis presence: esophagitis presence not specified Qualified Code(s): K21.9 - Gastro-esophageal reflux disease without esophagitis (4) Chronic pancreatitis: Code(s): K86.1 - Other chronic pancreatitis Category: Medical (5) Diabetes mellitus: Code(s): E11.9 - Type 2 diabetes mellitus without complications Category: Medical Qualifiers: Diabetes mellitus complication status: with hyperglycemia Diabetes mellitus termite control technician insulin use: with care home use Diabetes mellitus type: type 2 Qualified Code(s): E11.65 - Type 2 diabetes mellitus with hyperglycemia; Z79.4 - long-term (current) use of insulin (6) Abdominal pain: Code(s): R10.9 - Unspecified abdominal pain Category: Medical (7) Elevated alkaline phosphatase level: Code(s): R74.8 - Abnormal levels of other serum enzymes Category: Medical (8) Back pain: Code(s): M54.9 - Dorsalgia, unspecified Category: Medical Plan (she likes Adalgisa Hargrove!) She is having pain in the right lower abdomen just to the right and below the umbilicus. She says her stools are green, but she does not feel that she is having CIC. The pain keeps her awake at night, it is not there during the day but onsets around 7-7:30 pm. The pain starts more gradually and then increases. She will have to lay on her side but the pain is helped with little bit tea and ice. The pain is worse with red meats, fried foods, cheese, bland and rice - the pain is better with salads Her sugars continue to run very high, they stopped all of her lantus insulin r/t abd swelling and leg swelling recently. She will be seeing an endocrinolgist at [address] [place] [address] next week. She continues on humolog. She thought she needed a repeat colonoscopy, but she had this and an EGD in 2020 - and this would likely not be the most productive study in terms of an actual diagnosis given her pain. She has a strong family history of appendicitis so I think a CT scan is in order. I am also going to get some repeat blood work. She has an elevated alk-phos and is status post cholecystectomy so this could be Paget's disease but I also will screen her for primary biliary cholangitis. She tells me that her daughter has primary biliary cholangitis. Right now reluctant to give her a trial of dicyclomine because she has had a recent allergic reaction? And it will be more important for her personal clothing laundry aide to be able to prescribe medications and see how she reacts. Once this is established and she has this under control will consider if I can safely add some GI medications if we find that the problem is functional and not anything too serious. She does not feel like she is having any constipation or severe diarrhea. Since it is also possible this is referred pain I will get an x-ray of the thoracic and lumbar spine. Return office visit in 4 weeks Orders: Orders XR thoracic spine 2V Today M54.9 - Dorsalgia, unspecified, R10.9 - Unspecified abdominal pain, R74.8 - Abnormal levels of other serum enzymes Alkaline Phosphatase Bone Today M54.9 - Dorsalgia, unspecified, R10.9 - Unspecified abdominal pain, R74.8 - Abnormal levels of other serum enzymes Mitochondrial Antibody Today M54.9 - Dorsalgia, unspecified, R10.9 - Unspecified abdominal pain, R74.8 - Abnormal levels of other serum enzymes Blood Urea Nitrogen Today R10.9 - Unspecified abdominal pain UA CC w/rflx Micro + Cult Today R10.9 - Unspecified abdominal pain CT abdomen pelvis w IV con Today R10.9 - Unspecified abdominal pain, R74.8 - Abnormal levels of other serum enzymes XR lumbar spine 2-3V Today M54.9 - Dorsalgia, unspecified, R10.9 - Unspecified abdominal pain, R74.8 - Abnormal levels of other serum enzymes Smooth Muscle Antibody Today M54.9 - Dorsalgia, unspecified, R10.9 - Unspecified abdominal pain, R74.8 - Abnormal levels of other serum enzymes Creatinine Today R10.9 - Unspecified abdominal pain Coding Level of Care Code Est Pt Level 4 (05296) Diagnoses Erosive gastritis K29.60 Other cirrhosis of liver K74.69 Hepatic cirrhosis type: other cirrhosis Gastroesophageal reflux disease, unspecified whether esophagitis present K21.9 Esophagitis presence: esophagitis presence not specified Chronic pancreatitis K86.1 Type 2 diabetes mellitus with hyperglycemia, with long-term current use of insulin E11.65; Z79.4 Diabetes mellitus complication status: with hyperglycemia Diabetes mellitus termite control technician insulin use: with termite control technician use Diabetes mellitus type: type 2 Abdominal pain R10.9 Elevated alkaline phosphatase level R74.8 Back pain M54.9 Time Spent (min) 36 Comment Due to the complexity and variety of her complaints
[2024-04-18 13:04] VITALS: BP 118/70; PULSE 96; BMI 28.5
== END 2024-04-18 13:45 | disposition home or self-care (01) ==
PROVIDERS: PCP Internal Medicine; Visit Provider Nurse Practitioner
DX: K29.60 Other gastritis without bleeding (principal); K74.69 Other cirrhosis of liver; K21.9 Gastro-esophageal reflux disease without esophagitis; K86.1 Other chronic pancreatitis; E11.65 Type 2 diabetes mellitus with hyperglycemia; Z79.4 Long term (current) use of insulin; R10.9 Unspecified abdominal pain; R74.8 Abnormal levels of other serum enzymes; M54.9 Dorsalgia, unspecified
CPT/HCPCS: 99214

== ENCOUNTER 2024-04-18 13:02 | Outpatient (REF) | payer OTHER, SELFPAY ==
--- NOTE | ~2024-04-18 | XR_ITS ---
EXAMINATION: XR LUMBAR SPINE XR THORACIC SPINE CLINICAL INFORMATION: Unspecified abdominal pain, R10.9. COMPARISON: Dorsal spine series October 2015. TECHNIQUE: 2 views of the dorsal spine 3 views of lumbosacral spine. FINDINGS: THORACIC SPINE: Vertebral bodies normally aligned with normal height. Minimal scattered endplate osteophytes in the mid dorsal region unchanged compatible with mild multilevel spondylosis. Surrounding bone and soft tissues unremarkable. Incidental note made of hardware in the lower cervical spine region related to cervical fusion unchanged. LUMBOSACRAL SPINE: Vertebral body height and alignment normal. Multilevel degenerative disc changes manifested by endplate osteophytes without disc space narrowing at L2-L3 through L4-L5. Facets unremarkable. Surrounding bone normal. Incidental note made of calcification of the dorsal aorta and surgical clips in the right upper quadrant. XR/XR lumbar spine 2-3V IMPRESSION: THORACIC SPINE: Mild multilevel spondylosis. No acute abnormality. LUMBOSACRAL SPINE: Mild spondylosis.
--- NOTE | ~2024-04-18 | XR_ITS ---
EXAMINATION: XR LUMBAR SPINE XR THORACIC SPINE CLINICAL INFORMATION: Unspecified abdominal pain, R10.9. COMPARISON: Dorsal spine series October 2015. TECHNIQUE: 2 views of the dorsal spine 3 views of lumbosacral spine. FINDINGS: THORACIC SPINE: Vertebral bodies normally aligned with normal height. Minimal scattered endplate osteophytes in the mid dorsal region unchanged compatible with mild multilevel spondylosis. Surrounding bone and soft tissues unremarkable. Incidental note made of hardware in the lower cervical spine region related to cervical fusion unchanged. LUMBOSACRAL SPINE: Vertebral body height and alignment normal. Multilevel degenerative disc changes manifested by endplate osteophytes without disc space narrowing at L2-L3 through L4-L5. Facets unremarkable. Surrounding bone normal. Incidental note made of calcification of the dorsal aorta and surgical clips in the right upper quadrant. XR/XR thoracic spine 2V IMPRESSION: THORACIC SPINE: Mild multilevel spondylosis. No acute abnormality. LUMBOSACRAL SPINE: Mild spondylosis.
[2024-04-18 15:07] LABS: Blood Urea Nitrogen 10 mg/dL (9-16); Estimated Glomerular Filt Rate > 60
[2024-04-18 17:42] LABS: Appearance Urine Clear; Color Urine Yellow; Glucose Urine UA >=1000 mg/dL (Negative); Leukocyte Esterase Urine Negative (Negative); Nitrite Urine Negative (Negative); PH 6.5 (5.0-9.0); Specific Gravity - Urine >= 1.030 (1.005-1.025); UMIC TRIGGER UACC YES; Urine Blood Negative (Negative); Urine Ketones Trace mg/dL (Negative); Urine Protein Negative (Neg-Trace)
[2024-04-18 18:02] LABS: Bacteria Urine None Seen (None Seen); Hyaline Casts Urine 0-2 /LPF (0-2); RBC Urine 0-2 /HPF (0-2); Squamous Epithelial Cell Urine 0-2 /HPF (0-2); WBC Urine 0-5 /HPF (0-5)
[2024-04-20 14:09] LABS: Mitochondrial Antibodies NEGATIVE (NEGATIVE)
[2024-04-22 15:34] LABS: Alkaline Phosphatase Bone 21.5 mcg/L (5.6-29.0)
[2024-04-24 08:58] LABS: Smooth Muscle Antibody <20 U (<20)
== END 2024-04-18 13:03 | disposition home or self-care (01) ==
LOC: HO.XRAY 13:02
PROVIDERS: PCP Internal Medicine; Visit Provider Nurse Practitioner
DX: K21.9 Gastro-esophageal reflux disease without esophagitis (principal); K86.1 Other chronic pancreatitis; E11.65 Type 2 diabetes mellitus with hyperglycemia; R10.9 Unspecified abdominal pain; R74.8 Abnormal levels of other serum enzymes; M54.9 Dorsalgia, unspecified; Z79.4 Long term (current) use of insulin
CPT/HCPCS: 36415; 72070; 72100; 81001; 82565; 84075; 84520; 86015; 86381; 99212

== ENCOUNTER 2024-04-27 12:30 | Outpatient (AMB) | payer OTHER, SELFPAY ==
--- NOTE | 2024-04-27 12:43 | A.OFFVIS_ITS ---
Vital Signs 04/27/24 12:55 Height 4 ft 11 in Weight 141 lb 1.533 oz BMI 28.5 BP 112/84 Blood Pressure Location Rt brachial Position Sitting Pulse 96 Pulse Source Pulse Oximeter Intake Visit Reasons: T2DM/CONFIRMED Intake Note: New Patient presents today for to establish treatment for Type 2 Diabetes Mellitus: Last Diabetic eye exam was on: DUE Last Podiatry exam was on: Does not see a Oil Program Compliance Specialist Most recent HbA1c: 13.5%, 04/06/2024 Random Glucose- 296 mg/dL, Today Administrative Services Manager Required: No Accompanied by: Self / Same As Patient Allergies insulin glargine [From Lantus U-100 Insulin] Allergy (Severe, Verified 04/18/24 13:16) paralized nickel Allergy (Severe, Verified 04/18/24 13:16) Rash Penicillins Allergy (Severe, Verified 04/18/24 13:16) Hives acetaminophen [Percocet] Allergy (Intermediate, Verified 04/18/24 13:16) vomiting cyclobenzaprine [CYCLOBENZAPRINE] Allergy (Intermediate, Verified 04/18/24 13:16) HEADACHE,DIZZINESS divalproex sodium [Depakote] Allergy (Intermediate, Verified 04/18/24 13:16) increase liver enzymes methocarbamol [METHOCARBAMOL] Allergy (Intermediate, Verified 04/18/24 13:16) TICS oxycodone [From PERCOCET] Allergy (Intermediate, Verified 04/18/24 13:16) VOMITING insulin degludec [From Tresiba FlexTouch U-100] Adverse Reaction (Severe, Verified 04/18/24 13:16) loss of balance, body aches liraglutide [From Victoza] Adverse Reaction (Severe, Verified 04/18/24 13:16) hypoglycemia lisinopril Adverse Reaction (Severe, Verified 04/18/24 13:16) Dizziness risperidone [RISPERIDONE] Adverse Reaction (Severe, Verified 04/18/24 13:16) CHEST PAIN baclofen Adverse Reaction (Intermediate, Verified 04/18/24 13:16) Palpitations canagliflozin [Invokana] Adverse Reaction (Intermediate, Verified 04/18/24 13:16) confusion dulaglutide [Trulicity] Adverse Reaction (Intermediate, Verified 04/18/24 13:16) abdominal bloating, numbness, myalgia Narcotics Allergy (Mild, Uncoded 01/22/24 10:08) dizzy, sick HPI Comments Details: This is a 63-year-old female with type 2 diabetes presenting for consult Med Hx: bipolar disorder, cirrhosis, diabetes mellitus type 2 on long-term current use of insulin, hyperlipidemia, polyarthralgia Last A1C 13.5%. No CGM: sensor was causing bleeding. Current prescribed medications: Humalog (compliant), Lantus (not taking), tradjenta (taking). Reports she has been better with diet and blood glucose has improved from highs of 600s to 200s. No hypoglycmeia Past medications: Trulicity (stopped she said due to tongue sensation but was thought to have stroke, but noted SE GI complaints), Victoza (hypoglycemia), Tresiba (balance issues), Lantus (muscle weakness), SGLT-vaginal rash Micro/Macrovasular complications: neuropathy Eye exam due Podiatry-declines ROS CONSTITUTIONAL: Denies weight loss, fever and chills. HEENT: Denies changes in vision and hearing. RESPIRATORY: Denies SOB and cough. CV: Denies palpitations and CP GI: Denies abdominal pain, nausea, vomiting and diarrhea. Endorses chronic bloating : Denies dysuria and urinary frequency. MSK: Denies new myalgia and joint pain. SKIN: Denies rash and pruritus. NEUROLOGICAL: Denies headache PSYCHIATRIC: Denies recent changes in mood. PHYSICAL EXAM: GENERAL: Alert and oriented x 3. NAD EYES: EOMI. Anicteric. HENT: Moist mucous membranes. No scleral icterus. No cervical lymphadenopathy. LUNGS: Clear to auscultation bilaterally. CARDIOVASCULAR: Regular rate and rhythm. No murmur. No JVD. ABDOMEN: Soft, obese, non-tender +bs EXTREMITIES: No edema. Non-tender. SKIN: No rashes or lesions. Warm. NEUROLOGIC: No focal neurological deficits. CN II-XII grossly intact PSYCHIATRIC: Cooperative. Appropriate mood and affect [facility] Medical History Diabetes mellitus Physical exam Vaginal burning Vaginal itching Basilar migraine Hyperlipidemia LDL goal <70 Acute vaginitis Encounter for annual routine gynecological examination Hospital discharge follow-up Shortness of breath COVID-19 Dysuria Vaginal irritation Herpes simplex virus (HSV) infection Intertrigo Diabetes mellitus Migraine with aura Hypertension Renal calculi Chest pain Mixed hyperlipidemia Fibromyalgia Chronic neck pain Nickel allergy Nickel dermatitis Polyarthralgia Surgical History H/O esophagogastroduodenoscopy History of prior ablation treatment History of discectomy History of laparoscopy History of tubal ligation History of colonoscopy History of laparoscopic cholecystectomy History of section Family History Father Prostate cancer Diabetes High cholesterol HTN (hypertension) Mother Liver problem Diabetes High cholesterol HTN (hypertension) Family/Other Diabetes High cholesterol HTN (hypertension) Cancer Social History Household Members: Children Household Members Other:: Son Housing: Apartment Alcohol intake: former Comment: pt refuses bed/chair alarm Patient Tobacco Use Status: Former Tobacco user Tobacco use type: Cigarette Years Smoked: 18 e-Cigarette/Vaping Use: Never Used Second Hand Smoke Exposure: No service: No Current occupational status: disabled Sexual orientation: Straight/Heterosexual Gender identity: Female Cognitive needs: No Hearing needs: No Vision needs: No Physical Exam Vital Signs: Last Vital Signs Pulse 96 04/27/24 12:55 BP 112/84 04/27/24 12:55 BMI result Body Mass Index 28.5 Results Reviewed Results Reviewed: Laboratory Last Values Glucose (Clinic) 296 mg/dL (60-115) H 04/27/24 13:00 Assessment & Plan Assessment & Plan (1) Diabetes mellitus: Code(s): E11.9 - Type 2 diabetes mellitus without complications Category: Medical Qualifiers: Diabetes mellitus complication status: with hyperglycemia Diabetes mellitus termite 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 insulin use: with termite 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 use Diabetes mellitus type: type 2 Qualified Code(s): E11.65 - Type 2 diabetes mellitus with hyperglycemia; Z79.4 - terminal block assembler (current) use of insulin Plan: Discussed microvascular/macrovascular complications of uncontrolled diabetes Patient is very medication hesitant She is willing to try Actos and glipizide in addition to her insulin She will return in 4 weeks to check in one readings and overall compliance (2) Long-term current use of insulin for diabetes mellitus: Code(s): Z79.4 - penitentiary (current) use of insulin; E11.9 - Type 2 diabetes mellitus without complications Category: Medical Plan: see above Medications: New pioglitazone (Actos) 30 mg PO DAILY 90 tabs 3RF 90 days glipizide ER 10 mg PO BID 90 tabs 3RF Discontinued linagliptin Discontinued Reason: Doctor's Order 5 mg PO DAILY 90 tabs 2RF Coding Level of Care Code Est Pt Level 5 (07949) Diagnoses Type 2 diabetes mellitus with hyperglycemia, with long-term current use of insulin E11.65; Z79.4 Diabetes mellitus complication status: with hyperglycemia Diabetes mellitus termite 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 insulin use: with termite 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 use Diabetes mellitus type: type 2 Long-term current use of insulin for diabetes mellitus Z79.4; E11.9
[2024-04-27 12:55] VITALS: BP 112/84; PULSE 96; BMI 28.5
[2024-04-27 13:17] LABS: Glucose, Whole Blood 296 mg/dL (60-115)
== END 2024-04-27 13:31 | disposition home or self-care (01) ==
PROVIDERS: PCP Internal Medicine; Visit Provider Internal Medicine
DX: E11.65 Type 2 diabetes mellitus with hyperglycemia (principal); Z79.4 Long term (current) use of insulin
CPT/HCPCS: 99214

== ENCOUNTER → 2024-04-27 12:30 | Outpatient (BNVA) | payer OTHER, SELFPAY | PROVIDERS: PCP Internal Medicine; Visit Provider Internal Medicine | DX: E11.65 Type 2 diabetes mellitus with hyperglycemia (principal); Z79.4 Long term (current) use of insulin | CPT/HCPCS: 82947; 99212 ==

== ENCOUNTER 2024-05-12 12:47 | Outpatient (REF) | payer OTHER, SELFPAY ==
[2024-05-12 18:04] LABS: Bacterial Vaginosis PCR NEGATIVE (Negative); Candida Group PCR DETECTED (Not Detect); Candida glab krusei PCR NOT DETECTED (Not Detect); Trichomonas vaginalis PCR NOT DETECTED (Not Detect)
== END 2024-05-12 12:48 | disposition home or self-care (01) ==
LOC: HO.LAB 12:47
PROVIDERS: PCP Internal Medicine; Visit Provider Advanced Practice Midwife
DX: Z01.419 Encounter for gynecological examination (general) (routine) without abnormal findings (principal); N89.8 Other specified noninflammatory disorders of vagina
CPT/HCPCS: 0352U; 81003; 99396

== ENCOUNTER 2024-05-12 12:47 | Outpatient (AMB) | payer OTHER, SELFPAY ==
--- NOTE | 2024-05-12 12:51 | MHC.OFFVIS ---
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 Surgical Services Manager: Surgical Services Manager Present (Rosio) Allergies insulin glargine [From Lantus U-100 Insulin] Allergy (Severe, Verified 05/12/24 12:53) paralized nickel Allergy (Severe, Verified 05/12/24 12:53) Rash Penicillins Allergy (Severe, Verified 05/12/24 12:53) Hives acetaminophen [Percocet] Allergy (Intermediate, Verified 05/12/24 12:53) vomiting cyclobenzaprine [CYCLOBENZAPRINE] Allergy (Intermediate, Verified 05/12/24 12:53) HEADACHE,DIZZINESS divalproex sodium [Depakote] Allergy (Intermediate, Verified 05/12/24 12:53) increase liver enzymes methocarbamol [METHOCARBAMOL] Allergy (Intermediate, Verified 05/12/24 12:53) TICS oxycodone [From PERCOCET] Allergy (Intermediate, Verified 05/12/24 12:53) VOMITING insulin degludec [From Tresiba FlexTouch U-100] Adverse Reaction (Severe, Verified 05/12/24 12:53) loss of balance, body aches liraglutide [From Victoza] Adverse Reaction (Severe, Verified 05/12/24 12:53) hypoglycemia lisinopril Adverse Reaction (Severe, Verified 05/12/24 12:53) Dizziness risperidone [RISPERIDONE] Adverse Reaction (Severe, Verified 05/12/24 12:53) CHEST PAIN baclofen Adverse Reaction (Intermediate, Verified 05/12/24 12:53) Palpitations canagliflozin [Invokana] Adverse Reaction (Intermediate, Verified 05/12/24 12:53) confusion dulaglutide [Trulicity] Adverse Reaction (Intermediate, Verified 05/12/24 12:53) abdominal bloating, numbness, myalgia Narcotics Allergy (Mild, Uncoded 01/22/24 10:08) dizzy, sick Post menopausal: Yes HPI Comments Details: She is a 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 She is doing well with concerns: chronic itching and yeast infection symptoms, external irritation. Urine dip today-3+ glucose. Attempting to eat a healthy diet with calcium and vitamin D and stays active with exercise-walking and hiking. Currently not sexually active. Denies any vaginal dryness. STI testing offered; she declined. Last pap smear; 2021. Last mammogram; 2022. Colonoscopy is UTD. Denies any family history of breast, ovarian or colon cancer. [facility] Medical History Diabetes mellitus Physical exam Vaginal burning Vaginal itching Basilar migraine Hyperlipidemia LDL goal <70 Acute vaginitis Encounter for annual routine gynecological examination Hospital discharge follow-up Shortness of breath COVID-19 Dysuria Vaginal irritation Herpes simplex virus (HSV) infection Intertrigo Diabetes mellitus Migraine with aura Hypertension Renal calculi Chest pain Mixed hyperlipidemia Fibromyalgia Chronic neck pain Nickel allergy Nickel dermatitis Polyarthralgia Surgical History H/O esophagogastroduodenoscopy History of prior ablation treatment History of discectomy History of laparoscopy History of tubal ligation History of colonoscopy History of laparoscopic cholecystectomy History of section Family History Father Prostate cancer Diabetes High cholesterol HTN (hypertension) Mother Liver problem Diabetes High cholesterol HTN (hypertension) Family/Other Diabetes High cholesterol HTN (hypertension) Cancer Social History Household Members: Children Household Members Other:: Son Housing: Apartment Alcohol intake: former Comment: pt refuses bed/chair alarm Patient Tobacco Use Status: Former Tobacco user Tobacco use type: Cigarette Years Smoked: 18 e-Cigarette/Vaping Use: Never Used Second Hand Smoke Exposure: No service: No Current occupational status: disabled Sexual orientation: Straight/Heterosexual Gender identity: Female Cognitive needs: No Hearing needs: No Vision needs: No Female Reproductive History Menstrual control method: permanent sterilization Permanent Sterilization: BTL Total pregnancies: 7 Full term: 4 Number of Living Children: 4 Ab induced: 3 Date of last pap smear: 07/14/22 (neg pap and hpv) History of abnormal pap smear: Yes (05/02 ascus 12/27 ascus + hpv) Date of Mammogram: 09/06/23 (Birad 1) Review of Systems Const All systems reviewed & are unremarkable except as noted in HPI and below Reports as per HPI Eyes Reports no additional complaints ENT Reports no additional complaints Card Reports no additional complaints Resp Reports no additional complaints GI Reports as per HPI and Reports no additional complaints Reports as per HPI Musc Reports no additional complaints Skin/Breast Reports as per HPI Neuro Reports no additional complaints Psych Reports no additional complaints Endo Reports no additional complaints Jesus/Lymph Reports no additional complaints Aller/Immun Reports no additional complaints Physical Exam Vital Signs: Last Vital Signs BP 124/72 05/12/24 12:53 BMI result Body Mass Index 28.7 Const General: cooperative, healthy appearing, no acute distress, well developed and alert Orientation/consciousness: patient oriented x3 HEENT Head: Yes normal to inspection Eyes General: appearance normal, both eyes and all related structures Neck Neck: Yes normal visual inspection Thyroid: Thyroid normal Chest Chest palpation & inspection: normal inspection of the chest and other (no puckering, dimpling, peau de orange, retraction, discharge, masses) Breast/axilla inspection: normal inspection of the breasts Breast/axilla palpation: normal palpation of the breasts Resp Effort & Inspection: normal respiratory effort GI Inspection: Yes normal to inspection and Yes scar Palpation (GI): Soft to palpation Rectal Exam - Female: deferred Other: Vulva erythema consistent with chronic yeast extending to the buttocks and groins. General: Yes bladder normal to palpation External Female Exam: normal external appearance and normal appearance of the urethra Speculum Exam - Vagina: normal appearance of the vagina, normal palpation, normal vaginal discharge and vagina atrophic Speculum Exam - Cervix: normal appearance of the cervix and normal palpation Bimanual exam- vagina & uterus: normal bimanual exam, normal palpation, uterine size normal, bladder normal to palpation, normal palpation and non-tender Bimanual Exam- Adnexa, other: no masses Skin General skin exam: no rashes or lesions noted Rashes: no rashes Neuro General: patient oriented x3 Cognition (Neuro): normal cognition Extrem General: Yes normal to inspection Psych Attitude: cooperative Thought process: Normal thought process present Results AMB Urinalysis, Automated UA Leukoctes 0.5 Benedict/uL Last Edit by CHAI Mckay on 05/12/24 13:03 UA Nitrite Negative Last Edit by CHAI Mckay on 05/12/24 13:03 UA Urobilinogen 0 mg/dL Last Edit by CHAI Mckay on 05/12/24 13:03 UA Protein 0 mg/dL Last Edit by Kristal Cutler, RMA on 05/12/24 13:03 UA pH 6.0 Last Edit by Kristal Cutler, RMA on 05/12/24 13:03 UA Blood 0 Jose Armando/uL Last Edit by Kristal Cutlre, RMA on 05/12/24 13:03 UA Specific [place] 1.010 Last Edit by Kristal Ken He, RMA on 05/12/24 13:03 UA Ketone Negative Last Edit by Kristal Cutler, RMA on 05/12/24 13:03 UA Bilirubin 0 mg/dL Last Edit by Kristal Cutler, RMA on 05/12/24 13:03 UA Glucose 3 mg/dL Last Edit by Kristal Gimenezkelly, RMA on 05/12/24 13:03 Results Reviewed Results Reviewed: Laboratory Last Values Urine pH (Auto) 6.0 05/12/24 13:02 Specific [place] (Auto) 1.010 05/12/24 13:02 Urine Protein (Auto) 0 mg/dL 05/12/24 13:02 Glucose (UA)(Auto) 3 mg/dL 05/12/24 13:02 Urine Ketones (Auto) Negative 05/12/24 13:02 Urine Blood (Auto) 0 Jose Armando/uL 05/12/24 13:02 Urine Nitrite (Auto) Negative 05/12/24 13:02 Urine Bilirubin (Auto) 0 mg/dL 05/12/24 13:02 Urine Urobilinogen (Auto) 0 mg/dL 05/12/24 13:02 Leukocyte Esterase (Auto) 0.5 Benedict/uL 05/12/24 13:02 Assessment & Plan Assessment & Plan (1) Encounter for well woman exam with routine gynecological exam: Code(s): Z01.419 - Encounter for gynecological examination (general) (routine) without abnormal findings Category: Medical Plan Discussed: Current recommendations for pap smears per ASCCP guidelines. Breast awareness, periodic self breast exams and yearly mammogram. Maintain a healthy lifestyle, well balanced diet including Calcium 1,200 mg and Vitamin D 600 IU daily, and routine exercise. Importance of glucose control through diet and exercise, follow up with primary care regarding concerns. Rx for vulvar Kaylyn rash. BV panel obtained. Contact the office with any postmenopausal bleeding. Patient verbalizes understanding and agrees to the plan of care. She was given opportunity to ask questions and all questions were answered to the best of my ability. RTO in 1 year for annual rental clerk tool and equipment exam. This note is constructed using voice recognition software. While every effort has been made to ensure accuracy, people manager errors may have been included. Orders: Orders Bacterial Vaginosis Panel Today N89.8 - Other specified noninflammatory disorders of vagina MM tomosynthesis screening BI Today Z12.31 - Encounter for screening mammogram for malignant neoplasm of breast AMB Urinalysis Automated Today R10.2 - Pelvic and perineal pain Medications: New clotrimazole-betamethasone 1-0.05 % 1 appl topical BID 7 days 45 grams 1RF fungal rash Coding Level of Care Code Est Pt Prev Care 40-64y(88174) Diagnoses Encounter for well woman exam with routine gynecological exam Z01.419
[2024-05-12 12:53] VITALS: BP 124/72; BMI 28.7
== END 2024-05-12 13:45 | disposition home or self-care (01) ==
LOC: HO.HWS 12:47
PROVIDERS: PCP Internal Medicine; Visit Provider Advanced Practice Midwife
DX: R10.2 Pelvic and perineal pain (principal); Z01.419 Encounter for gynecological examination (general) (routine) without abnormal findings
CPT/HCPCS: 99396

== ENCOUNTER 2024-05-25 12:56 | Outpatient (AMB) | payer OTHER, SELFPAY ==
[2024-05-25 12:58] VITALS: BP 122/84; PULSE 75; BMI 28.5
--- NOTE | 2024-05-25 12:58 | MHC.OFFVIS ---
Vital Signs 05/25/24 12:58 Height 4 ft 11 in Weight 141 lb 1.533 oz BMI 28.5 BP 122/84 Blood Pressure Location Rt brachial Position Sitting Pulse 75 Pulse Source Pulse Oximeter Intake Visit Reasons: DM follow up Intake Note: Patient presents today for to establish treatment for Type 2 Diabetes Mellitus: Last Diabetic eye exam was on: DUE Last Podiatry exam was on: Does not see a Pressure Vessel Inspector Most recent HbA1c: 13.5%, 04/06/2024 Random Glucose- 357 mg/dL, Today Calliope Player Required: No Accompanied by: Self / Same As Patient Allergies insulin glargine [From Lantus U-100 Insulin] Allergy (Severe, Verified 05/30/24 14:42) paralized nickel Allergy (Severe, Verified 05/30/24 14:42) Rash Penicillins Allergy (Severe, Verified 05/30/24 14:42) Hives acetaminophen [Percocet] Allergy (Intermediate, Verified 05/30/24 14:42) vomiting cyclobenzaprine [CYCLOBENZAPRINE] Allergy (Intermediate, Verified 05/30/24 14:42) HEADACHE,DIZZINESS divalproex sodium [Depakote] Allergy (Intermediate, Verified 05/30/24 14:42) increase liver enzymes methocarbamol [METHOCARBAMOL] Allergy (Intermediate, Verified 05/30/24 14:42) TICS oxycodone [From PERCOCET] Allergy (Intermediate, Verified 05/30/24 14:42) VOMITING insulin degludec [From Tresiba FlexTouch U-100] Adverse Reaction (Severe, Verified 05/30/24 14:42) loss of balance, body aches liraglutide [From Victoza] Adverse Reaction (Severe, Verified 05/30/24 14:42) hypoglycemia lisinopril Adverse Reaction (Severe, Verified 05/30/24 14:42) Dizziness risperidone [RISPERIDONE] Adverse Reaction (Severe, Verified 05/30/24 14:42) CHEST PAIN baclofen Adverse Reaction (Intermediate, Verified 05/30/24 14:42) Palpitations canagliflozin [Invokana] Adverse Reaction (Intermediate, Verified 05/30/24 14:42) confusion dulaglutide [Trulicity] Adverse Reaction (Intermediate, Verified 05/30/24 14:42) abdominal bloating, numbness, myalgia Narcotics Allergy (Mild, Uncoded 05/25/24 13:01) dizzy, sick HPI Comments Details: This is a 63-year-old female with type 2 diabetes presenting for consult Med Hx: bipolar disorder, cirrhosis, diabetes mellitus type 2 on long-term current use of insulin, hyperlipidemia, polyarthralgia Last A1C 13.5%. No CGM: sensor was causing bleeding. Current prescribed medications: Humalog (compliant), Elroy (recently started) was not taking lantus. Reports she has been better with diet and blood glucose has improved from highs of 600s to 200s. No hypoglycemia. She would like to restart trulicity Past medications: Trulicity (stopped she said due to tongue sensation but was thought to have stroke, but noted SE GI complaints), Victoza (hypoglycemia), Tresiba (balance issues), Lantus (muscle weakness), SGLT-vaginal rash Glucometer not working Micro/Macrovasular complications: neuropathy Eye exam due Podiatry-declines ROS CONSTITUTIONAL: Denies weight loss, fever and chills. HEENT: Denies changes in vision and hearing. RESPIRATORY: Denies SOB and cough. CV: Denies palpitations and CP GI: Denies abdominal pain, nausea, vomiting and diarrhea. Endorses chronic bloating : Denies dysuria and urinary frequency. MSK: Denies new myalgia and joint pain. SKIN: Denies rash and pruritus. NEUROLOGICAL: Denies headache PSYCHIATRIC: Denies recent changes in mood. PHYSICAL EXAM: GENERAL: Alert and oriented x 3. NAD EYES: EOMI. Anicteric. HENT: Moist mucous membranes. No scleral icterus. No cervical lymphadenopathy. LUNGS: Clear to auscultation bilaterally. CARDIOVASCULAR: Regular rate and rhythm. No murmur. No JVD. ABDOMEN: Soft, obese, non-tender +bs EXTREMITIES: No edema. Non-tender. SKIN: No rashes or lesions. Warm. NEUROLOGIC: No focal neurological deficits. CN II-XII grossly intact PSYCHIATRIC: Cooperative. Appropriate mood and affect [facility] Medical History Encounter for well woman exam with routine gynecological exam Diabetes mellitus Physical exam Vaginal burning Vaginal itching Basilar migraine Hyperlipidemia LDL goal <70 Acute vaginitis Encounter for annual routine gynecological examination Hospital discharge follow-up Shortness of breath COVID-19 Dysuria Vaginal irritation Herpes simplex virus (HSV) infection Intertrigo Diabetes mellitus Migraine with aura Hypertension Renal calculi Chest pain Mixed hyperlipidemia Fibromyalgia Chronic neck pain Nickel allergy Nickel dermatitis Polyarthralgia Surgical History H/O esophagogastroduodenoscopy History of prior ablation treatment History of discectomy History of laparoscopy History of tubal ligation History of colonoscopy History of laparoscopic cholecystectomy History of section Family History Father Prostate cancer Diabetes High cholesterol HTN (hypertension) Mother Liver problem Diabetes High cholesterol HTN (hypertension) Family/Other Diabetes High cholesterol HTN (hypertension) Cancer Social History Household Members: Children Household Members Other:: Son Housing: Apartment Alcohol intake: former Comment: pt refuses bed/chair alarm Patient Tobacco Use Status: Former Tobacco user Tobacco use type: Cigarette Years Smoked: 18 e-Cigarette/Vaping Use: Never Used Second Hand Smoke Exposure: No service: No Current occupational status: disabled Sexual orientation: Straight/Heterosexual Gender identity: Female Cognitive needs: No Hearing needs: No Vision needs: No Physical Exam Vital Signs: Last Vital Signs Pulse 75 05/25/24 12:58 BP 122/84 05/25/24 12:58 BMI result Body Mass Index 28.5 Results Reviewed Results Reviewed: Laboratory Last Values Glucose (Clinic) 357 mg/dL (60-115) H* 05/25/24 13:03 Assessment & Plan Assessment & Plan (1) Diabetes mellitus: Code(s): E11.9 - Type 2 diabetes mellitus without complications Category: Medical Qualifiers: Diabetes mellitus complication status: with hyperglycemia Diabetes 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 bug 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 insulin use: with long-term use Diabetes mellitus type: type 2 Qualified Code(s): E11.65 - Type 2 diabetes mellitus with hyperglycemia; Z79.4 - MCFP (current) use of insulin Plan: Uncontrolled Need readings to titrate medications Restart trulicity 1.5 mg Continue toujeo, humalog Return in 2 weeks (2) Long-term current use of insulin for diabetes mellitus: Code(s): Z79.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; E11.9 - Type 2 diabetes mellitus without complications Category: Medical Plan: see above Medications: New Trulicity (dulaglutide) 1.5 mg (0.5 mL) subcut QWEEK 6 mL 3RF NS FreeStyle Lancets (lancets) three times daily 300 ea 3RF NS Z79.4 - MCFP (current) use of insulin, E11.9 - Type 2 diabetes mellitus without complications, E11.65 - Type 2 diabetes mellitus with hyperglycemia Changed From blood-glucose meter test 3 times per day 1 ea 0RF E11.65 - Type 2 diabetes mellitus with hyperglycemia, Z79.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 To FreeStyle Lite Meter (blood-glucose meter) test 3 times per day 1 ea 0RF NS E11.65 - Type 2 diabetes mellitus with hyperglycemia, Z79.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 From blood sugar diagnostic DIRECTED 100 strips 1RF Z79.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, E11.9 - Type 2 diabetes mellitus without complications, E11.65 - Type 2 diabetes mellitus with hyperglycemia To FreeStyle Lite Strips (blood sugar diagnostic) three times daily 300 ea 3RF NS Z79.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, E11.9 - Type 2 diabetes mellitus without complications, E11.65 - Type 2 diabetes mellitus with hyperglycemia Coding Level of Care Code Est Pt Level 4 (31546) Diagnoses Type 2 diabetes mellitus with hyperglycemia, with long-term current use of insulin E11.65; Z79.4 Diabetes mellitus complication status: with hyperglycemia Diabetes 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 bug 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 insulin use: with bed bug 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 use Diabetes mellitus type: type 2 Long-term current use of insulin for diabetes mellitus Z79.4; E11.9
[2024-05-25 13:07] LABS: Glucose, Whole Blood 357 mg/dL (60-115)
== END 2024-05-25 13:25 | disposition home or self-care (01) ==
PROVIDERS: PCP Internal Medicine; Visit Provider Internal Medicine
DX: E11.65 Type 2 diabetes mellitus with hyperglycemia (principal); Z79.4 Long term (current) use of insulin; E11.9 Type 2 diabetes mellitus without complications
CPT/HCPCS: 99214

== ENCOUNTER → 2024-05-25 12:56 | Outpatient (BNVA) | payer OTHER, SELFPAY | PROVIDERS: PCP Internal Medicine; Visit Provider Internal Medicine | DX: E11.65 Type 2 diabetes mellitus with hyperglycemia (principal); Z79.4 Long term (current) use of insulin | CPT/HCPCS: 82947; 99212 ==

== ENCOUNTER 2024-05-30 14:08 | Outpatient (AMB) | payer OTHER, SELFPAY ==
[2024-05-30 14:15] VITALS: BP 121/80; PULSE 114; BMI 28.9
--- NOTE | 2024-05-30 14:15 | MHC.OFFVIS ---
Vital Signs 05/30/24 14:15 Height 4 ft 11 in Weight 142 lb 13.753 oz BMI 28.9 BP 121/80 Blood Pressure Location Lt brachial Position Sitting Pulse 114 H Intake Visit Reasons: 4 week follow up Abdominal pain Intake Note: Alia presents to in office 4 weeks follow up of labs and Xray. CC: Patient continues to c/o abdominal pain that is worst after she eats and it travels . Research Development Director Required: No Accompanied by: Self / Same As Patient Allergies insulin glargine [From Lantus U-100 Insulin] Allergy (Severe, Verified 06/08/24 14:39) paralized nickel Allergy (Severe, Verified 06/08/24 14:39) Rash Penicillins Allergy (Severe, Verified 06/08/24 14:39) Hives acetaminophen [Percocet] Allergy (Intermediate, Verified 06/08/24 14:39) vomiting cyclobenzaprine [CYCLOBENZAPRINE] Allergy (Intermediate, Verified 06/08/24 14:39) HEADACHE,DIZZINESS divalproex sodium [Depakote] Allergy (Intermediate, Verified 06/08/24 14:39) increase liver enzymes methocarbamol [METHOCARBAMOL] Allergy (Intermediate, Verified 06/08/24 14:39) TICS oxycodone [From PERCOCET] Allergy (Intermediate, Verified 06/08/24 14:39) VOMITING insulin degludec [From Tresiba FlexTouch U-100] Adverse Reaction (Severe, Verified 06/08/24 14:39) loss of balance, body aches liraglutide [From Victoza] Adverse Reaction (Severe, Verified 06/08/24 14:39) hypoglycemia lisinopril Adverse Reaction (Severe, Verified 06/08/24 14:39) Dizziness risperidone [RISPERIDONE] Adverse Reaction (Severe, Verified 06/08/24 14:39) CHEST PAIN baclofen Adverse Reaction (Intermediate, Verified 06/08/24 14:39) Palpitations canagliflozin [Invokana] Adverse Reaction (Intermediate, Verified 06/08/24 14:39) confusion dulaglutide [Trulicity] Adverse Reaction (Intermediate, Verified 06/08/24 14:39) abdominal bloating, numbness, myalgia Narcotics Allergy (Mild, Uncoded 06/08/24 14:39) dizzy, sick HPI HPI 4 week follow up Abdominal pain: Details: Assessment & Plan (1) Erosive gastritis: Code(s): K29.60 - Other gastritis without bleeding Category: Medical (2) Cirrhosis: Comment: BASELINE LABS 01/2018: Total bilirubin 0.6, alk-phos elevated at 134, AST/ALT 37/44, CURRENT LABS 08/03/2303/ 08:3013:4709:41 Estimated GFR > 60 Hgb A1c (Clinic) 14 H Total Bilirubin 0.8 AST 27 ALT 29 Alkaline Phosphatase 199 H TSH 3.10 ULTRASOUND OF THE ABDOMEN ORDERED BY PCP 12/10/23 FINDINGS: PANCREAS: Normal. ABDOMINAL AORTA: The proximal, mid, and distal segments are normal in caliber. INFERIOR VENA CAVA: Visualized portions are normal. LIVER: The liver is enlarged. The liver contour is normal. Diffusely increased liver echogenicity. No focal hepatic lesion. There is no intrahepatic biliary duct dilatation seen. GALLBLADDER: Surgically absent. COMMON BILE DUCT: Normal in caliber measuring 0.38 cm in diameter. RIGHT KIDNEY: Normal. No hydronephrosis. No renal calculi or focal parenchymal lesions. The kidney measures 10.6 cm in maximum dimension. LEFT KIDNEY: 1.6 cm simple appearing midpole cyst, stable. No hydronephrosis or renal calculi. The kidney measures 11.3 cm in maximum dimension. SPLEEN: Normal. The spleen measures 11.3 cm in maximum dimension. FREE FLUID: None. US/US abdomen complete IMPRESSION: 1. Diffusely increased liver echogenicity. This is a nonspecific finding but most suggestive of hepatic steatosis. Correlation with liver enzymes recommended. 2. Stable 1.6 cm left renal cyst. CT ABDOMEN AND PELVIS 08/01/23 FINDINGS: LUNG BASES: The visualized lung bases are unremarkable. LIVER, GALLBLADDER, AND BILIARY TREE: The liver is heterogeneous in attenuation and irregular in contour. There is no focal consolidation. There is no intrahepatic biliary duct dilatation. There has been a prior cholecystectomy. PANCREAS: Unremarkable. SPLEEN: Spleen is mildly enlarged measuring up to 14 cm. ADRENAL GLANDS: There bilateral adrenal gland thickening and a 1.4 cm left adrenal nodule.. KIDNEYS AND URETERS: The kidneys are normal in size, shape, and attenuation. There is a 3 mm nonobstructing calculus lower pole left kidney. There is a 1.7 cm cyst upper pole left kidney. There is no hydronephrosis. BLADDER: Unremarkable. GASTROINTESTINAL TRACT: The small and large bowel are unremarkable. The appendix is unremarkable. ABDOMINAL WALL: No significant hernia is appreciated. LYMPH NODES: Normal. VASCULAR: Unremarkable. PELVIC VISCERA: Unremarkable. OSSEOUS STRUCTURES: Unremarkable. CT/CT abdomen pelvis wo IV con IMPRESSION: Heterogeneous irregular liver consistent with hepatocellular disease/cirrhosis. There is mild associated splenomegaly. Obstructing calculus lower pole left kidney. Code(s): K74.60 - Unspecified cirrhosis of liver Category: Medical Qualifiers: Hepatic cirrhosis type: other cirrhosis Qualified Code(s): K74.69 - Other cirrhosis of liver (3) GERD (gastroesophageal reflux disease): Code(s): K21.9 - Gastro-esophageal reflux disease without esophagitis Category: Medical Qualifiers: Esophagitis presence: esophagitis presence not specified Qualified Code(s): K21.9 - Gastro-esophageal reflux disease without esophagitis (4) Chronic pancreatitis: Code(s): K86.1 - Other chronic pancreatitis Category: Medical (5) Diabetes mellitus: Code(s): E11.9 - Type 2 diabetes mellitus without complications Category: Medical Qualifiers: Diabetes mellitus complication status: with hyperglycemia Diabetes mellitus parts counterman insulin use: with parts counterman use Diabetes mellitus type: type 2 Qualified Code(s): E11.65 - Type 2 diabetes mellitus with hyperglycemia; Z79.4 - [facility] (current) use of insulin (6) Abdominal pain: Code(s): R10.9 - Unspecified abdominal pain Category: Medical (7) Elevated alkaline phosphatase level: Code(s): R74.8 - Abnormal levels of other serum enzymes Category: Medical (8) Back pain: Code(s): M54.9 - Dorsalgia, unspecified Category: Medical Plan (she likes Adalgisa Hargrove!) She is having pain in the right lower abdomen just to the right and below the umbilicus. She says her stools are green, but she does not feel that she is having CIC. The pain keeps her awake at night, it is not there during the day but onsets around 7-7:30 pm. The pain starts more gradually and then increases. She will have to lay on her side but the pain is helped with little bit tea and ice. The pain is worse with red meats, fried foods, cheese, bland and rice - the pain is better with salads Her sugars continue to run very high, they stopped all of her lantus insulin r/t abd swelling and leg swelling recently. She will be seeing an endocrinolgist at [address] [place] [address] next week. She continues on humolog. She thought she needed a repeat colonoscopy, but she had this and an EGD in 2020 - and this would likely not be the most productive study in terms of an actual diagnosis given her pain. She has a strong family history of appendicitis so I think a CT scan is in order. I am also going to get some repeat blood work. She has an elevated alk-phos and is status post cholecystectomy so this could be Paget's disease but I also will screen her for primary biliary cholangitis. She tells me that her daughter has primary biliary cholangitis. Right now reluctant to give her a trial of dicyclomine because she has had a recent allergic reaction? And it will be more important for her lead maintenance technician to be able to prescribe medications and see how she reacts. Once this is established and she has this under control will consider if I can safely add some GI medications if we find that the problem is functional and not anything too serious. She does not feel like she is having any constipation or severe diarrhea. Since it is also possible this is referred pain I will get an x-ray of the thoracic and lumbar spine. Return office visit in 4 weeks Orders: Orders XR thoracic spine 2V Today M54.9 - Dorsalgia, unspecified, R10.9 - Unspecified abdominal pain, R74.8 - Abnormal levels of other serum enzymes Alkaline Phosphatase Bone Today M54.9 - Dorsalgia, unspecified, R10.9 - Unspecified abdominal pain, R74.8 - Abnormal levels of other serum enzymes Mitochondrial Antibody Today M54.9 - Dorsalgia, unspecified, R10.9 - Unspecified abdominal pain, R74.8 - Abnormal levels of other serum enzymes Blood Urea Nitrogen Today R10.9 - Unspecified abdominal pain UA CC w/rflx Micro + Cult Today R10.9 - Unspecified abdominal pain CT abdomen pelvis w IV con Today R10.9 - Unspecified abdominal pain, R74.8 - Abnormal levels of other serum enzymes XR lumbar spine 2-3V Today M54.9 - Dorsalgia, unspecified, R10.9 - Unspecified abdominal pain, R74.8 - Abnormal levels of other serum enzymes Smooth Muscle Antibody Today M54.9 - Dorsalgia, unspecified, R10.9 - Unspecified abdominal pain, R74.8 - Abnormal levels of other serum enzymes Creatinine Today R10.9 - Unspecified abdominal pain LABS; Laboratory Tests 04/18/24 14:15 Alk Phos Bone Specific 21.5 Anti-Mitochondrial Ab NEGATIVE Anti-Smooth Muscle Ab <20 XR LUMBAR AND THORACIC SPINE 05/08/24 FINDINGS: THORACIC SPINE: Vertebral bodies normally aligned with normal height. Minimal scattered endplate osteophytes in the mid dorsal region unchanged compatible with mild multilevel spondylosis. Surrounding bone and soft tissues unremarkable. Incidental note made of hardware in the lower cervical spine region related to cervical fusion unchanged. LUMBOSACRAL SPINE: Vertebral body height and alignment normal. Multilevel degenerative disc changes manifested by endplate osteophytes without disc space narrowing at L2-L3 through L4-L5. Facets unremarkable. Surrounding bone normal. Incidental note made of calcification of the dorsal aorta and surgical clips in the right upper quadrant. XR/XR lumbar spine 2-3V IMPRESSION: THORACIC SPINE: Mild multilevel spondylosis. No acute abnormality. LUMBOSACRAL SPINE: Mild spondylosis. CT ABD AND PELVIS 07/05/2024 TODAY'S VISIT (she likes Adalgisa Hargrove!) We review the XR and there are significant changes in her lumbar spine that may be causing her pain - the pain is reproducible with palpation of the lumbar spine. I am referring her to Pain Mgmt as she had a lumbar MRI in 2006 and she likely needs this updated for best diagnostic and treatment plan. She has an upcoming CT of abd and pelvis as well. She is not sleeping r/t her severe pain, and she looks very fatigued today. We discuss the elevated alk phos, and there does not seem to be any indication of primary biliary cholangitis or Paget's disease. I think she just has a higher than normal alk-phos without any disease burden. This is reassuring to her. She does not want anymore medications so were not going to treat but I will refer her to pain management to see if she would get an MRI. Return office visit after CT scan. [facility] Medical History Encounter for well woman exam with routine gynecological exam Diabetes mellitus Physical exam Vaginal burning Vaginal itching Basilar migraine Hyperlipidemia LDL goal <70 Acute vaginitis Encounter for annual routine gynecological examination Hospital discharge follow-up Shortness of breath COVID-19 Dysuria Vaginal irritation Herpes simplex virus (HSV) infection Intertrigo Diabetes mellitus Migraine with aura Hypertension Renal calculi Chest pain Mixed hyperlipidemia Fibromyalgia Chronic neck pain Nickel allergy Nickel dermatitis Polyarthralgia Surgical History H/O esophagogastroduodenoscopy History of prior ablation treatment History of discectomy History of laparoscopy History of tubal ligation History of colonoscopy History of laparoscopic cholecystectomy History of section Family History Father Prostate cancer Diabetes High cholesterol HTN (hypertension) Mother Liver problem Diabetes High cholesterol HTN (hypertension) Family/Other Diabetes High cholesterol HTN (hypertension) Cancer Social History Household Members: Children Household Members Other:: Son Housing: Apartment Alcohol intake: former Comment: pt refuses bed/chair alarm Patient Tobacco Use Status: Former Tobacco user Tobacco use type: Cigarette Years Smoked: 18 e-Cigarette/Vaping Use: Never Used Second Hand Smoke Exposure: No service: No Current occupational status: disabled Sexual orientation: Straight/Heterosexual Gender identity: Female Cognitive needs: No Hearing needs: No Vision needs: No Review of Systems Const Denies fatigue, Denies fever(s), Denies night sweats, Denies poor appetite and Denies weight loss ENT Reports Normal hearing present, Denies dental pain, Denies dysphagia, Denies hearing loss, Denies mouth pain, Reports neck pain, Denies odynophagia, Denies throat swelling, Denies tongue swelling and Reports other (Dentition adequate) Card Reports no additional complaints Resp Reports no additional complaints GI Details: Reports abdominal pain, Denies melena, Denies bloating, Denies hematochezia, Denies constipation, Denies GI cramping, Denies dysphagia, Denies excessive flatus, Denies early satiety, Denies heartburn, Denies diarrhea, Denies nausea, Denies odynophagia, Denies vomiting and Denies hematemesis Reports flank pain Musc Reports back pain, Reports arthralgias, Reports neck pain and Reports stiffness Skin/Breast Denies pruritus, Denies lesions, Denies rash and Denies jaundice Neuro Reports Normal hearing present and Denies Abnormal speech present Endo Denies fatigue Aller/Immun Denies throat swelling and Denies tongue swelling Physical Exam Vital Signs: Last Vital Signs Pulse 114 H 05/30/24 14:15 BP 121/80 05/30/24 14:15 BMI result Body Mass Index 28.9 Const General: cooperative, no acute distress, well developed and well groomed Nutritional Appearance: average body habitus and well nourished Orientation/consciousness: oriented to person, oriented to place and oriented to time Limitations: No language barrier HEENT Head: Yes normocephalic and Yes atraumatic Eyes General: appearance normal, both eyes and all related structures Pupils: Equal, round and reactive pupils present Neck Neck: Yes normal visual inspection and Yes no lymphadenopathy Thyroid: Thyroid normal Resp Effort & Inspection: normal respiratory effort and able to speak in complete sentences Auscultation: clear to auscultation bilaterally Cardio Rate: regular rate Rhythm: regular rhythm Heart sounds: Normal, physiologic split S2 sound present Peripheral pulses: radial pulses present and posterior tibial pulses present GI Inspection: No distended and No Abdominal panniculus present Palpation (GI): Soft to palpation, nontender, no guarding, not rigid and No hepatosplenomegaly present Percussion: Yes normal to percussion Auscultation: normal bowel sounds Rectal Exam - Female: deferred Skin General skin exam: no rashes or lesions noted, turgor normal, skin not dry, no jaundice, No spider nevi and no striae Rashes: no rashes Nails: normal Neuro General: oriented to person, oriented to place and oriented to time Cranial nerves: Yes Equal, round and reactive pupils present and Yes Normal hearing present Speech: No Abnormal speech present Extrem General: Yes normal to inspection, No clubbing, No cyanosis and No edema Psych Appearance: grossly normal and well kempt Mental Status: mental status grossly normal Speech and movement: Normal speech and movement present Affect: normal affect Attitude: cooperative Thought process: Normal thought process present and not confabulating Thought content: Normal thought content present Insight: Fair insight present (Psych) and Limited insight present (Psych) Judgement: Fair judgement present (Psych) and Limited judgement present (Psych) Assessment & Plan Assessment & Plan (1) Elevated alkaline phosphatase level: Code(s): R74.8 - Abnormal levels of other serum enzymes Category: Medical (2) Erosive gastritis: Code(s): K29.60 - Other gastritis without bleeding Category: Medical (3) Cirrhosis: Comment: BASELINE LABS 01/2018: Total bilirubin 0.6, alk-phos elevated at 134, AST/ALT 37/44, CURRENT LABS 08/03/2303/ 08:3013:4709:41 Estimated GFR > 60 Hgb A1c (Clinic) 14 H Total Bilirubin 0.8 AST 27 ALT 29 Alkaline Phosphatase 199 H TSH 3.10 ULTRASOUND OF THE ABDOMEN ORDERED BY PCP 12/10/23 FINDINGS: PANCREAS: Normal. ABDOMINAL AORTA: The proximal, mid, and distal segments are normal in caliber. INFERIOR VENA CAVA: Visualized portions are normal. LIVER: The liver is enlarged. The liver contour is normal. Diffusely increased liver echogenicity. No focal hepatic lesion. There is no intrahepatic biliary duct dilatation seen. GALLBLADDER: Surgically absent. COMMON BILE DUCT: Normal in caliber measuring 0.38 cm in diameter. RIGHT KIDNEY: Normal. No hydronephrosis. No renal calculi or focal parenchymal lesions. The kidney measures 10.6 cm in maximum dimension. LEFT KIDNEY: 1.6 cm simple appearing midpole cyst, stable. No hydronephrosis or renal calculi. The kidney measures 11.3 cm in maximum dimension. SPLEEN: Normal. The spleen measures 11.3 cm in maximum dimension. FREE FLUID: None. US/US abdomen complete IMPRESSION: 1. Diffusely increased liver echogenicity. This is a nonspecific finding but most suggestive of hepatic steatosis. Correlation with liver enzymes recommended. 2. Stable 1.6 cm left renal cyst. CT ABDOMEN AND PELVIS 08/01/23 FINDINGS: LUNG BASES: The visualized lung bases are unremarkable. LIVER, GALLBLADDER, AND BILIARY TREE: The liver is heterogeneous in attenuation and irregular in contour. There is no focal consolidation. There is no intrahepatic biliary duct dilatation. There has been a prior cholecystectomy. PANCREAS: Unremarkable. SPLEEN: Spleen is mildly enlarged measuring up to 14 cm. ADRENAL GLANDS: There bilateral adrenal gland thickening and a 1.4 cm left adrenal nodule.. KIDNEYS AND URETERS: The kidneys are normal in size, shape, and attenuation. There is a 3 mm nonobstructing calculus lower pole left kidney. There is a 1.7 cm cyst upper pole left kidney. There is no hydronephrosis. BLADDER: Unremarkable. GASTROINTESTINAL TRACT: The small and large bowel are unremarkable. The appendix is unremarkable. ABDOMINAL WALL: No significant hernia is appreciated. LYMPH NODES: Normal. VASCULAR: Unremarkable. PELVIC VISCERA: Unremarkable. OSSEOUS STRUCTURES: Unremarkable. CT/CT abdomen pelvis wo IV con IMPRESSION: Heterogeneous irregular liver consistent with hepatocellular disease/cirrhosis. There is mild associated splenomegaly. Obstructing calculus lower pole left kidney. Code(s): K74.60 - Unspecified cirrhosis of liver Category: Medical Qualifiers: Hepatic cirrhosis type: other cirrhosis Qualified Code(s): K74.69 - Other cirrhosis of liver (4) GERD (gastroesophageal reflux disease): Code(s): K21.9 - Gastro-esophageal reflux disease without esophagitis Category: Medical Qualifiers: Esophagitis presence: esophagitis presence not specified Qualified Code(s): K21.9 - Gastro-esophageal reflux disease without esophagitis (5) Back pain: Code(s): M54.9 - Dorsalgia, unspecified Category: Medical (6) Thoracic spondylosis: Code(s): M47.814 - Spondylosis without myelopathy or radiculopathy, thoracic region Category: Medical (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 I am referring her to Pain Mgmt as she had a lumbar MRI in 2006 and she likely needs this updated for best diagnostic and treatment plan. She has an upcoming CT of abd and pelvis as well. She is not sleeping r/t her severe pain, and she looks very fatigued today. We discuss the elevated alk phos, and there does not seem to be any indication of primary biliary cholangitis or Paget's disease. I think she just has a higher than normal alk-phos without any disease burden. This is reassuring to her. She does not want anymore medications so were not going to treat but I will refer her to pain management to see if she would get an MRI. Return office visit after CT scan. Orders: Referrals Pain Management Referral M54.9 - Dorsalgia, unspecified, M47.814 - Spondylosis without myelopathy or radiculopathy, thoracic region, M47.816 - Spondylosis without myelopathy or radiculopathy, lumbar region Coding Level of Care Code Est Pt Level 3 (75468) Diagnoses Elevated alkaline phosphatase level R74.8 Erosive gastritis K29.60 Other cirrhosis of liver K74.69 Hepatic cirrhosis type: other cirrhosis Gastroesophageal reflux disease, unspecified whether esophagitis present K21.9 Esophagitis presence: esophagitis presence not specified Back pain M54.9 Thoracic spondylosis M47.814 Degenerative joint disease (DJD) of lumbar spine M47.816
== END 2024-05-30 15:30 | disposition home or self-care (01) ==
PROVIDERS: PCP Internal Medicine; Visit Provider Nurse Practitioner
DX: R74.8 Abnormal levels of other serum enzymes (principal); K29.60 Other gastritis without bleeding; K74.69 Other cirrhosis of liver; K21.9 Gastro-esophageal reflux disease without esophagitis; M54.9 Dorsalgia, unspecified; M47.814 Spondylosis without myelopathy or radiculopathy, thoracic region; M47.816 Spondylosis without myelopathy or radiculopathy, lumbar region
CPT/HCPCS: 99213

== ENCOUNTER → 2024-05-30 14:08 | Outpatient (BNVA) | payer OTHER, SELFPAY | PROVIDERS: PCP Internal Medicine; Visit Provider Nurse Practitioner | DX: K21.9 Gastro-esophageal reflux disease without esophagitis (principal); K29.60 Other gastritis without bleeding; R74.8 Abnormal levels of other serum enzymes; K74.69 Other cirrhosis of liver | CPT/HCPCS: 99212 ==

== ENCOUNTER 2024-06-08 14:16 | Outpatient (AMB) | payer OTHER, SELFPAY ==
--- NOTE | 2024-06-08 14:22 | A.OFFVIS_ITS ---
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 Required: No Accompanied by: Self / Same As Patient Allergies insulin glargine [From Lantus U-100 Insulin] Allergy (Severe, Verified 06/08/24 14:39) paralized nickel Allergy (Severe, Verified 06/08/24 14:39) Rash Penicillins Allergy (Severe, Verified 06/08/24 14:39) Hives acetaminophen [Percocet] Allergy (Intermediate, Verified 06/08/24 14:39) vomiting cyclobenzaprine [CYCLOBENZAPRINE] Allergy (Intermediate, Verified 06/08/24 14:39) HEADACHE,DIZZINESS divalproex sodium [Depakote] Allergy (Intermediate, Verified 06/08/24 14:39) increase liver enzymes methocarbamol [METHOCARBAMOL] Allergy (Intermediate, Verified 06/08/24 14:39) TICS oxycodone [From PERCOCET] Allergy (Intermediate, Verified 06/08/24 14:39) VOMITING insulin degludec [From Tresiba FlexTouch U-100] Adverse Reaction (Severe, Verified 06/08/24 14:39) loss of balance, body aches liraglutide [From Victoza] Adverse Reaction (Severe, Verified 06/08/24 14:39) hypoglycemia lisinopril Adverse Reaction (Severe, Verified 06/08/24 14:39) Dizziness risperidone [RISPERIDONE] Adverse Reaction (Severe, Verified 06/08/24 14:39) CHEST PAIN baclofen Adverse Reaction (Intermediate, Verified 06/08/24 14:39) Palpitations canagliflozin [Invokana] Adverse Reaction (Intermediate, Verified 06/08/24 14:39) confusion dulaglutide [Trulicity] Adverse Reaction (Intermediate, Verified 06/08/24 14:39) abdominal bloating, numbness, myalgia Narcotics Allergy (Mild, Uncoded 06/08/24 14:39) dizzy, sick HPI Comments Details: This is a 63-year-old female with type 2 diabetes presenting for consult Med Hx: bipolar disorder, cirrhosis, diabetes mellitus type 2 on long-term current use of insulin, hyperlipidemia, polyarthralgia Last A1C 13.5%. No CGM: sensor was causing bleeding. Current prescribed medications: Humalog (compliant), Elroy (recently started) was not taking lantus. Restarted trulicity Reports she has been better with diet and blood glucose has improved from highs of 600s to 200s. No hypoglycemia. Past medications: Trulicity (stopped she said due to tongue sensation but was thought to have stroke, but noted SE GI complaints), Victoza (hypoglycemia), Tresiba (balance issues), Lantus (muscle weakness), SGLT-vaginal rash Glucometer not working Micro/Macrovasular complications: neuropathy Eye exam due Podiatry-declines ROS CONSTITUTIONAL: Denies weight loss, fever and chills. HEENT: Denies changes in vision and hearing. RESPIRATORY: Denies SOB and cough. CV: Denies palpitations and CP GI: Denies abdominal pain, nausea, vomiting and diarrhea. Endorses chronic bloating : Denies dysuria and urinary frequency. MSK: Denies new myalgia and joint pain. SKIN: Denies rash and pruritus. NEUROLOGICAL: Denies headache PSYCHIATRIC: Denies recent changes in mood. PHYSICAL EXAM: GENERAL: Alert and oriented x 3. NAD EYES: EOMI. Anicteric. HENT: Moist mucous membranes. No scleral icterus. No cervical lymphadenopathy. LUNGS: Clear to auscultation bilaterally. CARDIOVASCULAR: Regular rate and rhythm. No murmur. No JVD. ABDOMEN: Soft, obese, non-tender +bs EXTREMITIES: No edema. Non-tender. SKIN: No rashes or lesions. Warm. NEUROLOGIC: No focal neurological deficits. CN II-XII grossly intact PSYCHIATRIC: Cooperative. Appropriate mood and affect [facility] Medical History Encounter for well woman exam with routine gynecological exam Diabetes mellitus Physical exam Vaginal burning Vaginal itching Basilar migraine Hyperlipidemia LDL goal <70 Acute vaginitis Encounter for annual routine gynecological examination Hospital discharge follow-up Shortness of breath COVID-19 Dysuria Vaginal irritation Herpes simplex virus (HSV) infection Intertrigo Diabetes mellitus Migraine with aura Hypertension Renal calculi Chest pain Mixed hyperlipidemia Fibromyalgia Chronic neck pain Nickel allergy Nickel dermatitis Polyarthralgia Surgical History H/O esophagogastroduodenoscopy History of prior ablation treatment History of discectomy History of laparoscopy History of tubal ligation History of colonoscopy History of laparoscopic cholecystectomy History of section Family History Father Prostate cancer Diabetes High cholesterol HTN (hypertension) Mother Liver problem Diabetes High cholesterol HTN (hypertension) Family/Other Diabetes High cholesterol HTN (hypertension) Cancer Social History Household Members: Children Household Members Other:: Son Housing: Apartment Alcohol intake: former Comment: pt refuses bed/chair alarm Patient Tobacco Use Status: Former Tobacco user Tobacco use type: Cigarette Years Smoked: 18 e-Cigarette/Vaping Use: Never Used Second Hand Smoke Exposure: No service: No Current occupational status: disabled Sexual orientation: Straight/Heterosexual Gender identity: Female Cognitive needs: No Hearing needs: No Vision needs: No Physical Exam Vital Signs: Last Vital Signs Pulse 72 06/08/24 14:23 BP 118/78 06/08/24 14:23 BMI result Body Mass Index 28.5 Results Reviewed Results Reviewed: Laboratory Last Values Glucose (Clinic) 309 mg/dL (60-115) H 06/08/24 14:26 Assessment & Plan Assessment & Plan (1) Diabetes mellitus: Code(s): E11.9 - Type 2 diabetes mellitus without complications Category: Medical Qualifiers: Diabetes mellitus complication status: with hyperglycemia Diabetes mellitus intermodal dispatcher insulin use: with residential use Diabetes mellitus type: type 2 Qualified Code(s): E11.65 - Type 2 diabetes mellitus with hyperglycemia; 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 Her blood glucose has improved. Will see in short term follow up. (2) Long-term current use of insulin for diabetes mellitus: Code(s): Z79.4 - 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 (current) use of insulin; E11.9 - Type 2 diabetes mellitus without complications Category: Medical Plan: Humalog 20 TID, toujeo 10 units nightly, actos, trulicity Coding Level of Care Code Est Pt Level 4 (36734) Diagnoses Type 2 diabetes mellitus with hyperglycemia, with long-term current use of insulin E11.65; Z79.4 Diabetes mellitus complication status: with hyperglycemia Diabetes mellitus intermodal dispatcher insulin use: with intermodal dispatcher use Diabetes mellitus type: type 2 Long-term current use of insulin for diabetes mellitus Z79.4; E11.9
[2024-06-08 14:23] VITALS: BP 118/78; PULSE 72; BMI 28.5
[2024-06-08 14:31] LABS: Glucose, Whole Blood 309 mg/dL (60-115)
== END 2024-06-08 15:06 | disposition home or self-care (01) ==
PROVIDERS: PCP Internal Medicine; Visit Provider Internal Medicine
DX: E11.65 Type 2 diabetes mellitus with hyperglycemia (principal); Z79.4 Long term (current) use of insulin; E11.9 Type 2 diabetes mellitus without complications

== ENCOUNTER → 2024-06-08 14:16 | Outpatient (BNVA) | payer OTHER, SELFPAY | PROVIDERS: PCP Internal Medicine; Visit Provider Internal Medicine | DX: E11.65 Type 2 diabetes mellitus with hyperglycemia (principal); Z79.4 Long term (current) use of insulin | CPT/HCPCS: 82947; 99212 ==

== ENCOUNTER 2024-06-21 14:05 | Emergency (ER) | payer OTHER, SELFPAY ==
--- NOTE | ~2024-06-21 | CT_ITS ---
EXAMINATION: CT ABDOMEN AND PELVIS WITH CONTRAST CLINICAL INFORMATION: Right lower quadrant pain COMPARISON: CT abdomen pelvis 08/01/2023, ultrasound abdomen 12/08/2023 TECHNIQUE: Multidetector volumetric images were obtained from the superior aspect of the liver through the pubic symphysis following administration 85 mL of Omnipaque 350 intravenous contrast. Sagittal and coronal reformatted images were obtained on the technologist's workstation. Oral contrast: No This CT examination was performed using dose optimization techniques as appropriate, variously including the following: *Automated exposure control *Adjustment of mA and/or kV according to patient size (this includes techniques or standardized protocols for targeted exams where dose is matched to indication/reason for exam; i.e. extremities or head) *Use of iterative reconstruction technique DLP: 462 mGy-cm FINDINGS: LUNG BASES: Emphysematous changes are seen at the lung bases with some scarring and nonspecific groundglass changes. LIVER, GALLBLADDER, AND BILIARY TREE: The liver is enlarged measuring 20.1 cm in greatest length with decreased attenuation consistent with hepatic steatosis. No focal hepatic lesion or intrahepatic biliary ductal dilatation is present. Status post cholecystectomy with prominent common bile duct which may be normal in this setting. PANCREAS: Unremarkable. SPLEEN: Spleen is enlarged at 13.2 cm in greatest length ADRENAL GLANDS: Unremarkable. KIDNEYS AND URETERS: The kidneys are normal in size, shape, and attenuation. No hydronephrosis, hydroureter, or calculi seen. No perinephric stranding. A benign left upper pole 1.8 cm Bosniak class I renal cyst is noted which requires no additional imaging or follow up. No solid renal masses are seen. BLADDER: The bladder demonstrates symmetric wall thickening. GASTROINTESTINAL TRACT: The small and large bowel are unremarkable. The appendix is unremarkable. ABDOMINAL WALL: No significant hernia is appreciated. LYMPH NODES: Normal. VASCULAR: There is marked reflux into a dilated left gonadal vein with associated large number of left-sided pelvic varices. Calcific atherosclerotic changes are present in the aorta and iliofemoral vessels. There is no evidence of an abdominal aortic aneurysm.a PELVIC VISCERA: The uterus and adnexa are unremarkable aside from the presence of the above-mentioned varices. OSSEOUS STRUCTURES: Unremarkable. CT/CT abdomen pelvis w IV con IMPRESSION: 1. A cause for the patient's right lower quadrant pain has not been found. The appendix is normal. 2. Incidental note made of an enlarged fatty liver, mild splenomegaly, cholecystectomy, symmetric bladder wall thickening and marked reflux into a dilated left gonadal vein with associated pelvic varices. This may be a cause of chronic pelvic pain especially if aggravated by the upright position and relieved with the supine position. If the patient has such symptoms, she may benefit from consultation with an interventional radiologist. Fleischner guidelines were followed. Electronically signed by: Sigifredo Mann MD 06/21/2024 07:47 PM EDT
[2024-06-21 14:27] VITALS: BP 132/65; PULSE 91; RESP 19; TEMP 36.4; O2SAT 98
[2024-06-21 14:32] VITALS: BP 131/75; BP 147/62; PULSE 105; PULSE 80; RESP 20; TEMP 36.4; O2SAT 97; O2SAT 99; BMI 31.0
[2024-06-21 14:37] LABS: Glucose, Whole Blood 369 mg/dL (60-115)
--- NOTE | 2024-06-21 14:45 | PC.NURSE ---
Pt. vomiting stating that she ate fish at the [employer] [address] and feels that she has food poisoning. Vomiting in ED and filled an entire emesis bag.
[2024-06-21] MEDS: ondansetron HCL 4 MG/2 ML VIAL IVPUSH (15:03)
[2024-06-21] MEDS: 0.9 % Sodium Chloride 1,000 ML 999 ML IV (15:03)
--- NOTE | 2024-06-21 15:18 | ED_ITS ---
HPI - General Adult General Chief complaint: Nausea/Vomiting/Diarrhea Stated complaint: DIZZY,NAUSEA X30M,BS 433 PER EMS Time Seen by Provider: 06/21/24 15:08 Source: patient Mode of arrival: ambulatory Limitations: no limitations History of Present Illness HPI narrative: This is a 64-year-old woman with a past medical history of migraine headaches, diabetes mellitus, fibromyalgia, hypertension, hyperlipidemia, polyarthralgia, GERD, chronic pancreatitis, TIA who presents for evaluation of abdominal pain, nausea, vomiting, diarrhea and dizziness. She states that [place] the [place] today [place] and plantain. She reports feeling unwell that time in going home. She states no chest pain or difficulty breathing. She states having right lower abdominal pain. She states history of section and cholecystectomy. She states no bloody stools, melena or hematochezia otherwise. She states no recent fevers or chills. She states no dysuria or urinary frequency/urgency. She states no recent trauma or falls. Related Data Home Medications ?Medication ?Instructions ?Recorded ?Confirmed diazepam 10 mg tablet 10 mg PO BID PRN Muscle Spasm 09/03/20 12/02/23 alpha lipoic acid 600 mg capsule 600 mg PO BIDAC 03/01/22 12/02/23 cyanocobalamin (vitamin B-12) 1,000 mcg PO DAILY 03/01/22 12/02/23 1,000 mcg tablet vitamin B complex 1 tab PO DAILY 03/01/22 12/02/23 melatonin 10 mg tablet 10 mg PO BEDTIME PRN Sleep 04/14/23 12/02/23 melatonin ER 10 mg-pyridoxine HCl 1 tab PO BEDTIME PRN 04/29/23 12/02/23 (B6) 10 mg tab, immed-extend release oxcarbazepine 150 mg tablet 150 mg PO DAILY 02/17/24 insulin lispro 200 unit/mL (3 mL) 22 unit subcut TID 04/06/24 subcutaneous pen (Humalog KwikPen U-200 Insulin) oxcarbazepine 600 mg tablet 600 mg PO DAILY 05/30/24 Previous Rx's ?Medication ?Instructions ?Recorded blood-glucose meter #1 ea 07/31/20 ibuprofen 600 mg tablet 600 mg PO TID PRN pain 90 days 07/30/22 #270 tabs albuterol sulfate 90 mcg/actuation 1 - 2 puff inhalation Q4-6H PRN 03/11/23 aerosol inhaler for dyspnea #8.5 grams blood pressure monitor #1 ea 03/11/23 blood-glucose sensor (Dexcom G7 #1 ea 09/07/23 Sensor device) mupirocin 2 % topical ointment 1 appl topical BID #15 grams 02/03/24 cholecalciferol (vitamin D3) 25 25 mcg PO DAILY 90 days #90 caps 02/04/24 mcg (1,000 unit) capsule flash glucose sensor (FreeStyle #1 ea 03/14/24 Avi 14 Day Sensor kit) pen needle, diabetic 31 gauge x #50 ea 03/14/2412/03 pen needle, diabetic 31 gauge x #100 ea 03/14/2402/02 (Advocate Pen Needle) pen needle, diabetic, safety 30 #100 ea 03/14/24 gauge x 02/02 (Assure ID Pen Needle) carisoprodol 350 mg tablet 350 mg PO DAILY PRN Muscle Spasm 04/06/24 30 days #30 tabs fenofibrate 54 mg tablet 54 mg PO DAILY 90 days #90 tabs 04/06/24 glipizide 10 mg tablet, extended 10 mg PO BID #90 tabs 04/27/24 release 24 hr pioglitazone 30 mg tablet (Actos) 30 mg PO DAILY 90 days #90 tabs 04/27/24 clotrimazole-betamethasone 1 1 appl topical BID fungal rash 7 05/12/24 %-0.05 % topical cream days #45 grams miconazole nitrate 2 % vaginal 1 appful vaginal BEDTIME 7 days 05/16/24 cream (Monistat 7) #45 grams insulin glargine U-300 conc 300 10 unit (0.0333 mL) subcut BEDTIME 05/18/24 unit/mL (3 mL) subcutaneous pen 12 weeks #6 mL (Toujeo Max U-300 SoloStar) FreeStyle Lancets 28 gauge #300 ea 05/25/24 (lancets) FreeStyle Lite Meter #1 ea 05/25/24 (blood-glucose meter) FreeStyle Lite Strips (blood sugar #300 ea 05/25/24 diagnostic) Trulicity 1.5 mg/0.5 mL 1.5 mg (0.5 mL) subcut QWEEK #6 mL 05/25/24 subcutaneous pen injector (dulaglutide) Allergies Allergy/AdvReac Type Severity Reaction Status Date / Time insulin glargine Allergy Severe paralized Verified 06/21/24 14:36 [From Lantus U-100 Insulin] nickel Allergy Severe Rash Verified 06/21/24 14:36 Penicillins Allergy Severe Hives Verified 06/21/24 14:36 acetaminophen [Percocet] Allergy Intermediate vomiting Verified 06/21/24 14:36 cyclobenzaprine Allergy Intermediate HEADACHE,DI Verified 06/21/24 14:36 [CYCLOBENZAPRINE] ZZINESS divalproex sodium [Depakote] Allergy Intermediate increase Verified 06/21/24 14:36 liver enzymes methocarbamol [METHOCARBAMOL] Allergy Intermediate TICS Verified 06/21/24 14:36 oxycodone [From PERCOCET] Allergy Intermediate VOMITING Verified 06/21/24 14:36 insulin degludec AdvReac Severe loss of Verified 06/21/24 14:36 [From Tresiba FlexTouch balance, U-100] body aches liraglutide [From Victoza] AdvReac Severe hypoglycemi Verified 06/21/24 14:36 a lisinopril AdvReac Severe Dizziness Verified 06/21/24 14:36 risperidone [RISPERIDONE] AdvReac Severe CHEST PAIN Verified 06/21/24 14:36 baclofen AdvReac Intermediate Palpitation Verified 06/21/24 14:36 s canagliflozin [Invokana] AdvReac Intermediate confusion Verified 06/21/24 14:36 dulaglutide [Trulicity] AdvReac Intermediate abdominal Verified 06/21/24 14:36 bloating, numbness, myalgia Narcotics Allergy Mild dizzy, sick Uncoded 06/21/24 14:36 Review of Systems 2 Review of Systems: ROS as per HPI [facility] Past Medical History Medical History Encounter for well woman exam with routine gynecological exam Diabetes mellitus Physical exam Vaginal burning Vaginal itching Basilar migraine Hyperlipidemia LDL goal <70 Acute vaginitis Encounter for annual routine gynecological examination Hospital discharge follow-up Shortness of breath COVID-19 Dysuria Vaginal irritation Herpes simplex virus (HSV) infection Intertrigo Diabetes mellitus Migraine with aura Hypertension Renal calculi Chest pain Mixed hyperlipidemia Fibromyalgia Chronic neck pain Nickel allergy Nickel dermatitis Polyarthralgia Surgical History H/O esophagogastroduodenoscopy History of prior ablation treatment History of discectomy History of laparoscopy History of tubal ligation History of colonoscopy History of laparoscopic cholecystectomy History of section Family History Family History Father Prostate cancer Diabetes High cholesterol HTN (hypertension) Mother Liver problem Diabetes High cholesterol HTN (hypertension) Family/Other Diabetes High cholesterol HTN (hypertension) Cancer Social History Social History Household Members: Children Household Members Other:: Son Housing: Apartment Alcohol intake: former Comment: pt refuses bed/chair alarm Patient Tobacco Use Status: Former Tobacco user Tobacco use type: Cigarette Years Smoked: 18 e-Cigarette/Vaping Use: Never Used Second Hand Smoke Exposure: No Advance Directives: No Do you have a plan to hurt others: No Plan service: No Current occupational status: disabled Sexual orientation: Straight/Heterosexual Gender identity: Female Cognitive needs: No Hearing needs: No Vision needs: No Physical Exam ED Vital Signs: Vital Signs - 24 hr 06/21/24 14:27 06/21/24 14:32 06/21/24 16:20 Temperature 97.6 F 97.6 F Pulse Rate 91 105 H 75 Respiratory Rate 19 20 15 Blood Pressure 132/65 131/75 125/90 H Pulse Oximetry 98 97 97 Oxygen Delivery Method Room Air Room Air Room Air 06/21/24 19:16 Temperature 97.6 F Pulse Rate 76 Respiratory Rate 16 Blood Pressure 127/94 H Pulse Oximetry 96 Oxygen Delivery Method Room Air BMI result Body Mass Index 31.0 Gen: NAD, AOx3 HEENT: NCAT, EOMI, normal conjunctiva CV: RRR Pulm: CTAB, no increased work of breathing GI: Soft, NTND, no rebound, guarding or rigidity Neuro: CN 2-12 intact, no nystagmus, 5/5 bilateral upper and lower extremity, sensation intact to light touch in bilateral upper and lower extremities, no dysmetria, no dysdiadochokinesia Medications Administered Discontinued Medications Generic Name Dose Route Start Last Admin Trade Name Freq PRN Reason Stop Dose Admin Droperidol 1.25 mg 06/21/24 15:15 06/21/24 16:20 Droperidol 5 Mg/2 Ml Vial IVPUSH 06/21/24 15:16 1.25 mg ONCE ONE Administration Sodium Chloride 1,000 mls @ 999 mls/hr 06/21/24 15:00 06/21/24 16:18 Ns IV 06/21/24 16:00 Infused .Q1H1M RENITA Infusion Iohexol 100 ml 06/21/24 17:06 06/21/24 17:06 Iohexol 350 Mg/Ml 100 Ml Infus..Btl IV 06/21/24 17:07 85 ml ONCE ONE Administration Ondansetron HCl 4 mg 06/21/24 14:49 06/21/24 15:03 Ondansetron Hcl 4 Mg/2 Ml Vial IVPUSH 06/21/24 14:50 4 mg ONCE ONE Administration Medical Decision Making Medical Decision Making [facility] Narrative: Differential diagnosis includes, but is not limited to gastroenteritis, food- borne illness, appendicitis, viral syndrome, presyncope. I considered diabetic ketoacidosis, but patient has no Kussmaul respirations and there was low clinical suspicion for this given her examination. Patient is afebrile and hemodynamically stable on room air. Exam is benign and reassuring. I reviewed and interpreted patient's labs including CBC, CMP, which is notable for a mild transaminitis with AST of 55, ALT 36 and alkaline phosphatase 147 (this is to be most likely secondary to fatty liver), hyperglycemia glucose 369- > 162 (anion gap reassuring at 15 making DKA very unlikely and further hyperglycemia did improve following IV fluids), lipase within normal limits 15 and urinalysis is noncontributory. I reviewed radiology impression of CT imaging as below. Incidentally noted is enlarged fatty liver, mild splenomegaly, cholecystectomy, symmetric bladder wall thickening and marked reflux into a dilated left gonadal vein with associated pelvic varices. This may be a cause of chronic pelvic pain especially if aggravated by upright position in her life with a supine position. . However, patient states no aggravation of abdominal pain with upright position and relief with the supine position. Further, patient is not endorsing left-sided pelvic pain. Patient was treated supportively here in the emergency room with IV fluids and antiemetics including Zofran and droperidol. On re-examination, patient is well-appearing and in no acute distress. ?Patient states symptoms have resolved. ?There is no indication for further emergent evaluation in this otherwise well-appearing patient as above. ?Patient is provided written and verbal instructions, educational materials, recommendations for outpatient follow-up, strict return precautions and teach back is performed. ?Patient states understanding and agreement with plan of care. ?Patient is discharged home in stable and improved condition. Admission/Observation Consideration of admission/observation: Escalation of care including admission/observation considered Lab Data MDM Lab Attestation statement: I reviewed the patient's lab results. 06/21/24 15:01 06/21/24 15:01 Labs: Lab Results 06/21/24 06/21/24 06/21/24 Range/Units 14:34 15:01 17:09 WBC 6.2 (4.8-10.8) X10*3/uL RBC 4.84 (4.20-5.50) X10*6/uL Hgb 14.6 (12.0-16.0) g/dl Hct 40.9 (37.0-47.0) % MCV 84.5 (80.0-98.0) fL MCH 30.2 (27.0-33.0) pg MCHC 35.7 H (31.0-35.0) g/dl RDW 12.1 (11.0-16.0) % Plt Count 149 L (160-400) X10*3/uL MPV 12.7 H (9.4-12.3) fL Immature Gran % (Auto) 0.5 H (0.0-0.4) % Neut % (Auto) 65.1 (45-73) % Lymph % (Auto) 27.0 (20-40) % [place] % (Auto) 6.1 (2-11) % Eos % (Auto) 1.0 (0-4) % Baso % (Auto) 0.3 (0-2) % Lymph # (Auto) 1.7 (1.2-4.9) X10*3/uL [place] # (Auto) 0.4 (0.1-1.2) X10*3/uL Eos # (Auto) 0.1 (0.0-0.4) X10*3/uL Baso # (Auto) 0.0 (0.0-0.2) X10*3/uL Abs Immat Gran (auto) 0.03 (0.00-0.03) X10*3/uL Absolute Neuts (auto) 4.1 (2.0-8.3) x10*3/uL Absolute Nucleated RBC 0.000 (0.0-0.012) X10*3/uL Nucleated RBC % (auto) 0.0 (0.0-0.2) /100WBC Sodium 134 L (135-145) mmol/L Potassium 4.1 (3.3-5.1) mmol/L Chloride 100 (96-108) mmol/L Carbon Dioxide 23 (22-29) mmol/L Anion Gap 15 (12-20) BUN 11 (9-16) mg/dL Creatinine 0.79 (0.5-1.4) mg/dL Estim Creat Clear Calc 61.9 Estimated GFR > 60 POC Glucose 369 H* 162 H (60-115) mg/dL Random Glucose 325 H (60-115) mg/dL Calcium 9.7 (8.4-10.2) mg/dL Total Bilirubin 1.0 (0.0-1.0) mg/dL Direct Bilirubin 0.2 (0.0-0.5) mg/dL AST 55 H (5-31) U/L ALT 36 H (0-31) U/L Alkaline Phosphatase 147 H (39-117) U/L Total Protein 8.3 H (6.5-8.0) g/dL Albumin 4.2 (3.5-5.0) g/dL Lipase 69 (8-78) U/L Urine Color Urine Appearance Urine pH (5.0-9.0) Ur Specific [place] (1.005-1.025) Urine Protein (Neg-Trace) mg/dL Urine Glucose (UA) (Negative) mg/dL Urine Ketones (Negative) mg/dL Urine Blood (Negative) Urine Nitrite (Negative) Ur Leukocyte Esterase (Negative) Urine RBC (0-2) /HPF Urine WBC (0-5) /HPF Ur Squamous Epith Cells (0-2) /HPF Urine Bacteria (None Seen) Hyaline Casts (0-2) /LPF 06/21/24 Range/Units 17:35 WBC (4.8-10.8) X10*3/uL RBC (4.20-5.50) X10*6/uL Hgb (12.0-16.0) g/dl Hct (37.0-47.0) % MCV (80.0-98.0) fL MCH (27.0-33.0) pg MCHC (31.0-35.0) g/dl RDW (11.0-16.0) % Plt Count (160-400) X10*3/uL MPV (9.4-12.3) fL Immature Gran % (Auto) (0.0-0.4) % Neut % (Auto) (45-73) % Lymph % (Auto) (20-40) % [place] % (Auto) (2-11) % Eos % (Auto) (0-4) % Baso % (Auto) (0-2) % Lymph # (Auto) (1.2-4.9) X10*3/uL [place] # (Auto) (0.1-1.2) X10*3/uL Eos # (Auto) (0.0-0.4) X10*3/uL Baso # (Auto) (0.0-0.2) X10*3/uL Abs Immat Gran (auto) (0.00-0.03) X10*3/uL Absolute Neuts (auto) (2.0-8.3) x10*3/uL Absolute Nucleated RBC (0.0-0.012) X10*3/uL Nucleated RBC % (auto) (0.0-0.2) /100WBC Sodium (135-145) mmol/L Potassium (3.3-5.1) mmol/L Chloride (96-108) mmol/L Carbon Dioxide (22-29) mmol/L Anion Gap (12-20) BUN (9-16) mg/dL Creatinine (0.5-1.4) mg/dL Estim Creat Clear Calc Estimated GFR POC Glucose (60-115) mg/dL Random Glucose (60-115) mg/dL Calcium (8.4-10.2) mg/dL Total Bilirubin (0.0-1.0) mg/dL Direct Bilirubin (0.0-0.5) mg/dL AST (5-31) U/L ALT (0-31) U/L Alkaline Phosphatase (39-117) U/L Total Protein (6.5-8.0) g/dL Albumin (3.5-5.0) g/dL Lipase (8-78) U/L Urine Color Yellow Urine Appearance Clear Urine pH 7.5 (5.0-9.0) Ur Specific [place] >= 1.030 H (1.005-1.025) Urine Protein Negative (Neg-Trace) mg/dL Urine Glucose (UA) >=1000 H (Negative) mg/dL Urine Ketones 15 (Negative) mg/dL Urine Blood Negative (Negative) Urine Nitrite Negative (Negative) Ur Leukocyte Esterase Trace H (Negative) Urine RBC 0-2 (0-2) /HPF Urine WBC 6-10 H (0-5) /HPF Ur Squamous Epith Cells 0-2 (0-2) /HPF Urine Bacteria None Seen (None Seen) Hyaline Casts 0-2 (0-2) /LPF Radiology Impression Discussion of test interpretation with radiology: I have reviewed the radiologist's reading. Radiologist Impression: CT/CT abdomen pelvis w IV con IMPRESSION: 1. A cause for the patient's right lower quadrant pain has not been found. The appendix is normal. 2. Incidental note made of an enlarged fatty liver, mild splenomegaly, cholecystectomy, symmetric bladder wall thickening and marked reflux into a dilated left gonadal vein with associated pelvic varices. This may be a cause of chronic pelvic pain especially if aggravated by the upright position and relieved with the supine position. If the patient has such symptoms, she may benefit from consultation with an interventional radiologist. Fleischner guidelines were followed. Electronically signed by: Sigifredo Mann MD 06/21/2024 07:47 PM EDT Dictated By: Sigifredo Mann MD Signed By: <Electronically signed by Sigifredo Mann MD in [place]> 06/21/241946 Discharge Plan Discharge Clinical Impression: Abdominal pain, Nausea vomiting and diarrhea Patient Disposition: Home, Self-Care Instructions: Abdominal Pain (ED) Additional Instructions: You were seen and evaluated in the emergency room. Your vital signs were normal and he did not have fever. ? Your blood work, urine studies and CT scans were reassuring. Please follow-up with your primary care doctor in the next 5-7 days. ? Please return to the emergency room if you develop any worsening symptoms. Prescriptions: No Action (DME) blood-glucose meter Kit See Rx Instructions .ROUTE .MEDSUPPLY Qty: 1 0RF Rx Instructions: As directed ibuprofen 600 mg tablet 600 mg PO TID PRN (Reason: pain) 90 Days Qty: 270 3RF albuterol sulfate 90 mcg/actuation HFA aerosol inhaler 1 - 2 puff inhalation Q4-6H PRN (Reason: for dyspnea) Qty: 8.5 2RF (DME) blood pressure monitor Kit See Rx Instructions .ROUTE .MEDSUPPLY Qty: 1 0RF Rx Instructions: As directed (DME) Dexcom G7 Sensor Device See Rx Instructions .Route Qty: 1 11RF Rx Instructions: As directed cholecalciferol (vitamin D3) 25 mcg (1,000 unit) capsule 25 mcg PO DAILY 90 Days Qty: 90 1RF (DME) pen needle, diabetic 31 gauge x 3/16 needle See Rx Instructions topical QID Qty: 50 11RF Rx Instructions: As directed (DME) FreeStyle Avi 14 Day Sensor Kit See Rx Instructions .Route Qty: 1 11RF Rx Instructions: As directed (DME) pen needle, diabetic [Advocate Pen Needle] 31 gauge x 5/16 needle See Rx Instructions .Route Qty: 100 3RF Rx Instructions: Use 1 pen needle once a day (DME) Assure ID Pen Needle 30 gauge x 5/16 needle See Rx Instructions .ROUTE .MEDSUPPLY Qty: 100 6RF Rx Instructions: Use 1 pen needle once a day miconazole nitrate [Monistat 7] 2 % cream 1 appful vaginal BEDTIME 7 Days Qty: 45 0RF insulin glargine U-300 conc [Toujeo Max U-300 SoloStar] 300 unit/mL (3 mL) insulin pen 10 unit subcut BEDTIME 84 Days Qty: 6 3RF cyanocobalamin (vitamin B-12) 1,000 mcg Tablet 1,000 mcg PO DAILY vitamin B complex Tablet 1 tab PO DAILY alpha lipoic acid 600 mg Capsule 600 mg PO BIDAC melatonin 10 mg tablet 10 mg PO BEDTIME PRN (Reason: Sleep) mupirocin 2 % ointment 1 appl topical BID Qty: 15 0RF diazepam 10 mg tablet 10 mg PO BID PRN (Reason: Muscle Spasm) melatonin-pyridoxine HCl (B6) 10-10 mg tablet, IR and ER, biphasic 1 tab PO BEDTIME PRN Humalog KwikPen Insulin 200 unit/mL (3 mL) insulin pen 22 unit subcut TID carisoprodol 350 mg tablet 350 mg PO DAILY PRN (Reason: Muscle Spasm) 30 Days Qty: 30 0RF fenofibrate 54 mg tablet 54 mg PO DAILY 90 Days Qty: 90 1RF clotrimazole-betamethasone 1-0.05 % cream 1 appl topical BID 7 Days Qty: 45 1RF Trulicity 1.5 mg/0.5 mL pen injector 1.5 mg subcut QWEEK Qty: 6 3RF (DME) blood-glucose meter [FreeStyle Lite Meter] Kit See Rx Instructions .Route Qty: 1 0RF Rx Instructions: test 3 times per day (DME) FreeStyle Lite Strips Strip See Rx Instructions .ROUTE .COMPLEX Qty: 300 3RF Dose Instruction: DIRECTED Rx Instructions: three times daily (DME) lancets [FreeStyle Lancets] 28 gauge misc See Rx Instructions .Route Qty: 300 3RF Rx Instructions: three times daily oxcarbazepine 150 mg tablet 150 mg PO DAILY oxcarbazepine 600 mg tablet 600 mg PO DAILY pioglitazone [Actos] 30 mg tablet 30 mg PO DAILY 90 Days Qty: 90 3RF glipizide 10 mg tablet extended release 24hr 10 mg PO BID Qty: 90 3RF Print Language: [place]anian
[2024-06-21 16:20] VITALS: BP 125/90; PULSE 75; RESP 15; O2SAT 97
[2024-06-21] MEDS: droPERidol 5 MG/2 ML VIAL 1.25 MG IVPUSH (16:20)
[2024-06-21 16:23] LABS: MANUAL DIFF FLAG NO
[2024-06-21 16:27] LABS: Basophils Percent Auto 0.3 % (0-2); Eosinophils Absolute Auto 0.1 X10*3/uL (0.0-0.4); Hematocrit 40.9 % (37.0-47.0); Hemoglobin 14.6 g/dl (12.0-16.0); Imm Gran Abs Auto 0.03 X10*3/uL (0.00-0.03); Imm Gran Pct Auto 0.5 % (0.0-0.4); Lymphocytes Absolute Auto 1.7 X10*3/uL (1.2-4.9); Mean Corpuscular HGB Conc 35.7 g/dl (31.0-35.0); Mean Corpuscular Hemoglobin 30.2 pg (27.0-33.0); Mean Corpuscular Volume 84.5 fL (80.0-98.0); Mean Platelet Volume 12.7 fL (9.4-12.3); Monocytes Absolute Auto 0.4 X10*3/uL (0.1-1.2); Monocytes Percent Auto 6.1 % (2-11); Neutrophils Absolute Auto 4.1 x10*3/uL (2.0-8.3); Neutrophils Percent Auto 65.1 % (45-73); Platelet Count 149 X10*3/uL (160-400); Red Blood Count 4.84 X10*6/uL (4.20-5.50); Red Cell Distribution Width 12.1 % (11.0-16.0); White Blood Count 6.2 X10*3/uL (4.8-10.8)
[2024-06-21 16:45] LABS: Alanine Aminotransferase 36 U/L (0-31); Albumin Level 4.2 g/dL (3.5-5.0); Alkaline Phosphatase 147 U/L (39-117); Anion Gap 15 (12-20); Aspartate Amino Transferase 55 U/L (5-31); Bilirubin Direct 0.2 mg/dL (0.0-0.5); Blood Urea Nitrogen 11 mg/dL (9-16); Calcium 9.7 mg/dL (8.4-10.2); Carbon Dioxide 23 mmol/L (22-29); Chloride 100 mmol/L (96-108); Creatinine Clr Calc Pharmacy 61.9; Estimated Glomerular Filt Rate > 60; Glucose Random 325 mg/dL (60-115); Lipase 69 U/L (8-78); Potassium 4.1 mmol/L (3.3-5.1); Sodium 134 mmol/L (135-145); Total Protein 8.3 g/dL (6.5-8.0)
[2024-06-21] MEDS: iohexoL 350 MG/ML 100 ML INFUS..BTL IV (17:06)
[2024-06-21 17:13] LABS: Glucose, Whole Blood 162 mg/dL (60-115)
[2024-06-21 17:51] LABS: Appearance Urine Clear; Color Urine Yellow; Glucose Urine UA >=1000 mg/dL (Negative); Leukocyte Esterase Urine Trace (Negative); Nitrite Urine Negative (Negative); PH 7.5 (5.0-9.0); Specific Gravity - Urine >= 1.030 (1.005-1.025); UMIC TRIGGER UACC YES; Urine Blood Negative (Negative); Urine Ketones 15 mg/dL (Negative); Urine Protein Negative (Neg-Trace)
[2024-06-21 17:54] LABS: Bacteria Urine None Seen (None Seen); Hyaline Casts Urine 0-2 /LPF (0-2); RBC Urine 0-2 /HPF (0-2); Squamous Epithelial Cell Urine 0-2 /HPF (0-2); UACC Culture Trigger YES
--- NOTE | 2024-06-21 18:52 | PC.NURSE ---
Report given to Tia Haney RN
[2024-06-21 19:16] VITALS: BP 127/94; PULSE 76; RESP 16; TEMP 36.4; O2SAT 96
[2024-06-21 20:00] VITALS: BP 127/94; PULSE 76; RESP 16; TEMP 36.4; O2SAT 96
[2024-06-21 20:35] VITALS: BP 127/94; PULSE 76; RESP 16; TEMP 36.4; O2SAT 96
== END 2024-06-21 20:37 | disposition home or self-care (01) ==
PROVIDERS: Student in an Organized Health Care Education/Training Program; Emergency Provider Emergency Medicine; PCP Internal Medicine
DX: R10.31 Right lower quadrant pain (principal); R11.2 Nausea with vomiting, unspecified; R19.7 Diarrhea, unspecified; E11.9 Type 2 diabetes mellitus without complications; I10 Essential (primary) hypertension; E78.5 Hyperlipidemia, unspecified; Z86.73 Personal history of transient ischemic attack (TIA), and cerebral infarction without residual deficits; Z79.4 Long term (current) use of insulin; Z79.85 Long-term (current) use of injectable non-insulin antidiabetic drugs
CPT/HCPCS: 36415; 74177; 80048; 80076; 81001; 82947; 83690; 85025; 87086; 87147; 96361; 96374; 96375; 99284; J1790; J2405; Q9967

== ENCOUNTER 2024-07-05 05:36 | Outpatient (REF) | payer OTHER, SELFPAY ==
--- NOTE | ~2024-07-05 | CT_ITS ---
EXAMINATION: CT ABDOMEN AND PELVIS WITH CONTRAST CLINICAL INFORMATION: Abdominal pain. COMPARISON: CT abdomen and pelvis dated 07/09/2024. TECHNIQUE: Multidetector volumetric images were obtained from the superior aspect of the liver through the pubic symphysis following administration 85 mL of Omnipaque 350 intravenous contrast. Sagittal and coronal reformatted images were obtained on the technologist's workstation. Oral contrast: No This CT examination was performed using dose optimization techniques as appropriate, variously including the following: *Automated exposure control *Adjustment of mA and/or kV according to patient size (this includes techniques or standardized protocols for targeted exams where dose is matched to indication/reason for exam; i.e. extremities or head) *Use of iterative reconstruction technique DLP: 296 mGy-cm FINDINGS: LUNG BASES: The visualized lung bases are unremarkable. LIVER, GALLBLADDER, AND BILIARY TREE: The liver is normal in size, shape and generally diminished attenuation. No focal hepatic lesion or biliary ductal dilatation is present. The gallbladder is surgically absent. PANCREAS: Unremarkable. SPLEEN: The spleen is upper normal in size, with a longitudinal span of 12.6 cm (6:54). No focal finding. ADRENAL GLANDS: The right adrenal gland is unremarkable. The left adrenal gland shows a 1.7 x 1.2 cm nodule (3:28). This is stable from the CT examination dated 02/07/2015 (2:24), and it is considered benign. KIDNEYS AND URETERS: The kidneys are normal in size, shape, and attenuation. A benign, simple left renal upper pole cyst requires no imaging follow-up. No hydronephrosis, hydroureter, or calculi seen. No perinephric stranding. BLADDER: Mildly distended and otherwise unremarkable. GASTROINTESTINAL TRACT: There is a large stool burden, suggesting constipation. No obstruction, free intraperitoneal air or abscess is seen. There is no focal bowel wall thickening. No significant diverticulosis or diverticulitis is seen. The vermiform appendix is normal. ABDOMINAL WALL: There is a small fat-containing umbilical hernia. LYMPH NODES: Normal. VASCULAR: There is moderate aortoiliac atherosclerotic calcification. No abdominal aortic aneurysm or dissection is seen. PELVIC VISCERA: The uterus and adnexa are unremarkable. There is prominent adnexal vasculature, left greater than right. OSSEOUS STRUCTURES: There is multi-level moderate thoracic and mild lumbar spondylosis. No acute or aggressive osseous finding is noted. CT/CT abdomen pelvis w IV con IMPRESSION: 1. Findings suggest possible constipation. No bowel obstruction, free intraperitoneal air or abscess is seen. There is no appendicitis or diverticulitis. 2. The spleen is upper normal in size, without focal finding. 3. A benign, stable 1.7 cm left adrenal nodule requires no imaging follow-up. This is unchanged from 02/07/2019. 4. There is hepatic steatosis. 5. There is mild distention of the urinary bladder, which is otherwise unremarkable. 6. No urinary calculus or obstruction is seen. 7. There is no abdominopelvic mass, free fluid or lymphadenopathy. 8. There is a small fat-containing umbilical hernia. 9. There is prominent adnexal vasculature, particularly on the left. This can be associated with pelvic congestion. 10. There are are degenerative changes of the thoracolumbar spine. No acute or aggressive osseous lesion is noted. Fleischner guidelines were followed. Electronically signed by: Demetrius Kern MD 08/09/2024 03:08 PM LUC[facility] SIMS
[2024-07-05] MEDS: iohexoL 350 MG/ML 100 ML INFUS..BTL IV (09:07)
[2024-07-05] MEDS: Barium Sulfate Oral (Mocha) 450 ML ORAL.SUSP PO ×2 (09:08)
== END 2024-07-05 05:37 | disposition home or self-care (01) ==
LOC: HO.CT 05:36
PROVIDERS: PCP Internal Medicine; Visit Provider Nurse Practitioner
DX: R10.9 Unspecified abdominal pain (principal); R74.8 Abnormal levels of other serum enzymes
CPT/HCPCS: 74177; Q9967

== ENCOUNTER 2024-07-07 09:03 | Outpatient (REF) | payer OTHER, SELFPAY ==
[2024-07-08 14:40] LABS: Bacterial Vaginosis PCR NEGATIVE (Negative); Candida Group PCR DETECTED (Not Detect); Candida glab krusei PCR NOT DETECTED (Not Detect); Trichomonas vaginalis PCR NOT DETECTED (Not Detect)
== END 2024-07-07 09:04 | disposition home or self-care (01) ==
LOC: HO.LAB 09:03
PROVIDERS: PCP Internal Medicine; Visit Provider Advanced Practice Midwife
DX: N95.0 Postmenopausal bleeding (principal); N89.8 Other specified noninflammatory disorders of vagina; R35.0 Frequency of micturition; R39.14 Feeling of incomplete bladder emptying; N90.89 Other specified noninflammatory disorders of vulva and perineum; R30.0 Dysuria
CPT/HCPCS: 0352U; 81003; 99212

== ENCOUNTER 2024-07-07 09:03 | Outpatient (AMB) | payer OTHER, SELFPAY ==
--- NOTE | 2024-07-07 09:05 | A.OFFVIS_ITS ---
Vital Signs 07/07/24 09:06 Height 4 ft 11 in BP 124/68 Intake Visit Reasons: PMB Intake Note: bleeding/spotting x7 days and pelvic pain, trouble urinating Allergies insulin glargine [From Lantus U-100 Insulin] Allergy (Severe, Verified 07/07/24 09:06) paralized nickel Allergy (Severe, Verified 07/07/24 09:06) Rash Penicillins Allergy (Severe, Verified 07/07/24 09:06) Hives acetaminophen [Percocet] Allergy (Intermediate, Verified 07/07/24 09:06) vomiting cyclobenzaprine [CYCLOBENZAPRINE] Allergy (Intermediate, Verified 07/07/24 09:06) HEADACHE,DIZZINESS divalproex sodium [Depakote] Allergy (Intermediate, Verified 07/07/24 09:06) increase liver enzymes methocarbamol [METHOCARBAMOL] Allergy (Intermediate, Verified 07/07/24 09:06) TICS oxycodone [From PERCOCET] Allergy (Intermediate, Verified 07/07/24 09:06) VOMITING insulin degludec [From Tresiba FlexTouch U-100] Adverse Reaction (Severe, Verified 07/07/24 09:06) loss of balance, body aches liraglutide [From Victoza] Adverse Reaction (Severe, Verified 07/07/24 09:06) hypoglycemia lisinopril Adverse Reaction (Severe, Verified 07/07/24 09:06) Dizziness risperidone [RISPERIDONE] Adverse Reaction (Severe, Verified 07/07/24 09:06) CHEST PAIN baclofen Adverse Reaction (Intermediate, Verified 07/07/24 09:06) Palpitations canagliflozin [Invokana] Adverse Reaction (Intermediate, Verified 07/07/24 09:06) confusion dulaglutide [Trulicity] Adverse Reaction (Intermediate, Verified 07/07/24 09:06) abdominal bloating, numbness, myalgia Narcotics Allergy (Mild, Uncoded 06/21/24 14:36) dizzy, sick HPI Comments Details: Patient is here today due to postmenopausal bleeding episode lasting approximately 7 days. She also reports she has some external burning, she is struggling to manage her diabetes. She is work to improve her diet and her providers adjusting her medications. She reports a lot of discomfort due to the vulvar irritation. Admits to frequency of urination with feeling of incomplete emptying. Urine dip today 3+ glucose. PFSH Medical History Encounter for well woman exam with routine gynecological exam Diabetes mellitus Physical exam Vaginal burning Vaginal itching Basilar migraine Hyperlipidemia LDL goal <70 Acute vaginitis Encounter for annual routine gynecological examination Hospital discharge follow-up Shortness of breath COVID-19 Dysuria Vaginal irritation Herpes simplex virus (HSV) infection Intertrigo Diabetes mellitus Migraine with aura Hypertension Renal calculi Chest pain Mixed hyperlipidemia Fibromyalgia Chronic neck pain Nickel allergy Nickel dermatitis Polyarthralgia Surgical History H/O esophagogastroduodenoscopy History of prior ablation treatment History of discectomy History of laparoscopy History of tubal ligation History of colonoscopy History of laparoscopic cholecystectomy History of section Family History Father Prostate cancer Diabetes High cholesterol HTN (hypertension) Mother Liver problem Diabetes High cholesterol HTN (hypertension) Family/Other Diabetes High cholesterol HTN (hypertension) Cancer Social History Household Members: Children Household Members Other:: Son Housing: Apartment Alcohol intake: former Comment: pt refuses bed/chair alarm Patient Tobacco Use Status: Former Tobacco user Tobacco use type: Cigarette Years Smoked: 18 e-Cigarette/Vaping Use: Never Used Second Hand Smoke Exposure: No service: No Current occupational status: disabled Sexual orientation: Straight/Heterosexual Gender identity: Female Cognitive needs: No Hearing needs: No Vision needs: No Female Reproductive History Menstrual Date of last pap smear: 07/14/22 (neg pap and hpb) Review of Systems Const All systems reviewed & are unremarkable except as noted in HPI and below Physical Exam Vital Signs: Last Vital Signs BP 124/68 07/07/24 09:06 Const General: cooperative, healthy appearing and no acute distress Orientation/consciousness: patient oriented x3 GI Inspection: Yes normal to inspection Palpation (GI): Soft to palpation and Other GI palpation findings present (Nontender) Rectal Exam - Female: visual inspection normal Other: External exam extensive vulvar erythema extending from the groins vulva to the perianal region, perianal region has small fissures, no lesions. General: Yes bladder normal to palpation External Female Exam: normal appearance of the urethra Speculum Exam - Vagina: normal appearance of the vagina, normal palpation, normal vaginal discharge and vagina atrophic Speculum Exam - Cervix: normal appearance of the cervix and normal palpation Bimanual exam- vagina & uterus: normal bimanual exam, normal palpation, uterine size normal, bladder normal to palpation, normal palpation, uterine shape normal and non-tender Bimanual Exam- Adnexa, other: normal adnexae Neuro General: patient oriented x3 Results AMB Urinalysis, Automated UA Leukoctes 0 Benedict/uL Last Edit by CHAI Mckay on 07/07/24 09:21 UA Nitrite Negative Last Edit by Kristal Cutler Whitney on 07/07/24 09:21 UA Urobilinogen 0 mg/dL Last Edit by Kristal Cutler Whitney on 07/07/24 09:2 1 UA Protein 0 mg/dL Last Edit by Kristal Cutler Whitney on 07/07/24 09:21 UA pH 6.0 Last Edit by Kristal Cutler [facility] on 07/07/24 09:21 UA Blood 0 Jose Armando/uL Last Edit by Kristal Cutler Whitney on 07/07/24 09:21 UA Specific Troutman 1.010 Last Edit by Kristal Cutler [facility] on 07/07/24 09:21 UA Ketone Negative Last Edit by CHAI Mckay on 07/07/24 09:21 UA Bilirubin 0 mg/dL Last Edit by Krisatl Cutler Whitney on 07/07/24 09:21 UA Glucose 3 mg/dL Last Edit by Kristal Cutler [facility] on 07/07/24 09:21 Results Reviewed Results Reviewed: Laboratory Last Values Urine pH (Auto) 6.0 07/07/24 09:19 Specific Troutman (Auto) 1.010 07/07/24 09:19 Urine Protein (Auto) 0 mg/dL 07/07/24 09:19 Glucose (UA)(Auto) 3 mg/dL 07/07/24 09:19 Urine Ketones (Auto) Negative 07/07/24 09:19 Urine Blood (Auto) 0 Jose Armando/uL 07/07/24 09:19 Urine Nitrite (Auto) Negative 07/07/24 09:19 Urine Bilirubin (Auto) 0 mg/dL 07/07/24 09:19 Urine Urobilinogen (Auto) 0 mg/dL 07/07/24 09:19 Leukocyte Esterase (Auto) 0 Benedict/uL 07/07/24 09:19 Assessment & Plan Assessment & Plan (1) PMB (postmenopausal bleeding): Code(s): N95.0 - Postmenopausal bleeding Category: Medical (2) Vulvar irritation: Code(s): N90.89 - Other specified noninflammatory disorders of vulva and perineum Plan Discussed: Recent abdominal CT scan revealed prominent left sided varicies. Recommend she have endometrial biopsy to rule out any abnormal cellular changes of the uterus including atypia, precancer or cancer of the uterus with the PMB. She is adamant she does not want to be awake for the procedure due to the discomfort she is already in. I recommend she have a consult with Dr. Maldonado to discuss a hysteroscopy for the PMB. BV panel obtained, await results for plan of care. Initiate topical antifungals. Advised loose cotton clothing or no clothing overnight, cool compress to area. Rx sent in. Follow up with her endocrine provider for medication management and discussion of referral to urology if indicated. Follow up in person pending pelvic ultrasound. All of her questions and concerns were addressed to the best of my ability and shared decision making. She is agreeable to the plan of care. This note is constructed using voice recognition software. While every effort has been made to ensure accuracy, panel flow machine operator errors may have been included. Orders: Orders US pelvic and transvaginal Today N95.0 - Postmenopausal bleeding Bacterial Vaginosis Panel Today N89.8 - Other specified noninflammatory disorders of vagina, N95.0 - Postmenopausal bleeding AMB Urinalysis Automated Today R30.0 - Dysuria Medications: New clotrimazole-betamethasone 1-0.05 % Not to be combined with other topical corticosteroids. 1 appl topical BID 7 days 45 grams 0RF itching Coding Level of Care Code Est Pt Level 4 (66894) Diagnoses PMB (postmenopausal bleeding) N95.0 Vulvar irritation N90.89
[2024-07-07 09:06] VITALS: BP 124/68
== END 2024-07-07 09:39 | disposition home or self-care (01) ==
LOC: HO.HWS 09:03
PROVIDERS: PCP Internal Medicine; Visit Provider Advanced Practice Midwife
DX: N95.0 Postmenopausal bleeding (principal); N90.89 Other specified noninflammatory disorders of vulva and perineum; R30.0 Dysuria
CPT/HCPCS: 99214

== ENCOUNTER 2024-07-11 14:05 | Outpatient (REF) | payer OTHER, SELFPAY ==
--- NOTE | ~2024-07-11 | US_ITS ---
EXAMINATION: US PELVIS CLINICAL INFORMATION: Postmenopausal oblique COMPARISON: Ultrasound dated August 21, 2022 TECHNIQUE: Ultrasound of the pelvis is performed using both transabdominal and transvaginal transducers along with Doppler. Transvaginal imaging is performed due to inadequate visualization transabdominally. FINDINGS: Submitted for interpretation on August 29, 2024. Uterus: The uterus is anteverted and measures 6 x 2 x 3 cm. Volume is 3 cc. The double wall endometrial thickness is 3 mm. The uterus is smooth in contour and has normal myometrial echogenicity. No visible fibroid. Adnexa: Both ovaries are visualized. There is normal color flow to the adnexa. There is no ovarian torsion. There is no pelvic ascites or fluid collection. . Right ovary measures 3 x 2 x 2 cm. Volume is 4 cc. Left ovary measures 2 x 2 x 2 cm. Volume is 3 cc. US/US pelvic and transvaginal IMPRESSION: Normal endometrial stripe. Recommend direct inspection. Limited exam demonstrated no gross abnormality. Electronically signed by: Dez Reddy MD 08/29/2024 03:20 PM EST
== END 2024-07-11 14:06 | disposition home or self-care (01) ==
LOC: HO.US 14:05
PROVIDERS: PCP Internal Medicine; Visit Provider Advanced Practice Midwife
DX: N95.0 Postmenopausal bleeding (principal)
CPT/HCPCS: 76830; 76856

== ENCOUNTER → 2024-07-11 14:07 | Outpatient (BNV) | payer OTHER, SELFPAY | PROVIDERS: PCP Internal Medicine; Visit Provider Radiology Diagnostic Radiology | DX: N95.0 Postmenopausal bleeding (principal) | CPT/HCPCS: 76856 ==

== ENCOUNTER 2024-07-19 13:25 | Outpatient (AMB) | payer OTHER, SELFPAY ==
[2024-07-19 13:39] VITALS: BP 122/93; PULSE 109; BMI 27.7
--- NOTE | 2024-07-19 13:39 | A.OFFVIS_ITS ---
Vital Signs 07/19/24 13:39 Height 4 ft 11 in Weight 137 lb 5.568 oz BMI 27.7 BP 122/93 H Blood Pressure Location Rt brachial Position Sitting Pulse 109 H Intake Visit Reasons: follow up after CT Intake Note: Alia returns to in office follow up of CT scan. CC: Patient states that since she started using the new insulin her whole body hurts. She c/o abdominal pain scale 10/10, and acid reflux. Grand Scribe Required: No Accompanied by: Self / Same As Patient Allergies insulin glargine [From Lantus U-100 Insulin] Allergy (Severe, Verified 08/31/24 10:21) paralized nickel Allergy (Severe, Verified 08/31/24 10:21) Rash Penicillins Allergy (Severe, Verified 08/31/24 10:21) Hives acetaminophen [Percocet] Allergy (Intermediate, Verified 08/31/24 10:21) vomiting cyclobenzaprine [CYCLOBENZAPRINE] Allergy (Intermediate, Verified 08/31/24 10:21) HEADACHE,DIZZINESS divalproex sodium [Depakote] Allergy (Intermediate, Verified 08/31/24 10:21) increase liver enzymes methocarbamol [METHOCARBAMOL] Allergy (Intermediate, Verified 08/31/24 10:21) TICS oxycodone [From PERCOCET] Allergy (Intermediate, Verified 08/31/24 10:21) VOMITING insulin degludec [From Tresiba FlexTouch U-100] Adverse Reaction (Severe, Verified 08/31/24 10:21) loss of balance, body aches liraglutide [From Victoza] Adverse Reaction (Severe, Verified 08/31/24 10:21) hypoglycemia lisinopril Adverse Reaction (Severe, Verified 08/31/24 10:21) Dizziness risperidone [RISPERIDONE] Adverse Reaction (Severe, Verified 08/31/24 10:21) CHEST PAIN baclofen Adverse Reaction (Intermediate, Verified 08/31/24 10:21) Palpitations canagliflozin [Invokana] Adverse Reaction (Intermediate, Verified 08/31/24 10:21) confusion dulaglutide [Trulicity] Adverse Reaction (Intermediate, Verified 08/31/24 10:21) abdominal bloating, numbness, myalgia Narcotics Allergy (Mild, Uncoded 08/31/24 10:21) dizzy, sick HPI HPI follow up after CT: Details: Assessment & Plan (1) Elevated alkaline phosphatase level: Code(s): R74.8 - Abnormal levels of other serum enzymes Category: Medical (2) Erosive gastritis: Code(s): K29.60 - Other gastritis without bleeding Category: Medical (3) Cirrhosis: Comment: BASELINE LABS 01/2018: Total bilirubin 0.6, alk-phos elevated at 134, AST/ALT 37/44, CURRENT LABS 08/03/2303/ 08:3013:[id number] Estimated GFR > 60 Hgb A1c (Clinic) 14 H Total Bilirubin 0.8 AST 27 ALT 29 Alkaline Phosphatase 199 H TSH 3.10 ULTRASOUND OF THE ABDOMEN ORDERED BY PCP 12/10/23 FINDINGS: PANCREAS: Normal. ABDOMINAL AORTA: The proximal, mid, and distal segments are normal in caliber. INFERIOR VENA CAVA: Visualized portions are normal. LIVER: The liver is enlarged. The liver contour is normal. Diffusely increased liver echogenicity. No focal hepatic lesion. There is no intrahepatic biliary duct dilatation seen. GALLBLADDER: Surgically absent. COMMON BILE DUCT: Normal in caliber measuring 0.38 cm in diameter. RIGHT KIDNEY: Normal. No hydronephrosis. No renal calculi or focal parenchymal lesions. The kidney measures 10.6 cm in maximum dimension. LEFT KIDNEY: 1.6 cm simple appearing midpole cyst, stable. No hydronephrosis or renal calculi. The kidney measures 11.3 cm in maximum dimension. SPLEEN: Normal. The spleen measures 11.3 cm in maximum dimension. FREE FLUID: None. US/US abdomen complete IMPRESSION: 1. Diffusely increased liver echogenicity. This is a nonspecific finding but most suggestive of hepatic steatosis. Correlation with liver enzymes recommended. 2. Stable 1.6 cm left renal cyst. CT ABDOMEN AND PELVIS 08/01/23 FINDINGS: LUNG BASES: The visualized lung bases are unremarkable. LIVER, GALLBLADDER, AND BILIARY TREE: The liver is heterogeneous in attenuation and irregular in contour. There is no focal consolidation. There is no intrahepatic biliary duct dilatation. There has been a prior cholecystectomy. PANCREAS: Unremarkable. SPLEEN: Spleen is mildly enlarged measuring up to 14 cm. ADRENAL GLANDS: There bilateral adrenal gland thickening and a 1.4 cm left adrenal nodule.. KIDNEYS AND URETERS: The kidneys are normal in size, shape, and attenuation. There is a 3 mm nonobstructing calculus lower pole left kidney. There is a 1.7 cm cyst upper pole left kidney. There is no hydronephrosis. BLADDER: Unremarkable. GASTROINTESTINAL TRACT: The small and large bowel are unremarkable. The appendix is unremarkable. ABDOMINAL WALL: No significant hernia is appreciated. LYMPH NODES: Normal. VASCULAR: Unremarkable. PELVIC VISCERA: Unremarkable. OSSEOUS STRUCTURES: Unremarkable. CT/CT abdomen pelvis wo IV con IMPRESSION: Heterogeneous irregular liver consistent with hepatocellular disease/cirrhosis. There is mild associated splenomegaly. Obstructing calculus lower pole left kidney. Code(s): K74.60 - Unspecified cirrhosis of liver Category: Medical Qualifiers: Hepatic cirrhosis type: other cirrhosis Qualified Code(s): K74.69 - Other cirrhosis of liver (4) GERD (gastroesophageal reflux disease): Code(s): K21.9 - Gastro-esophageal reflux disease without esophagitis Category: Medical Qualifiers: Esophagitis presence: esophagitis presence not specified Qualified Code(s): K21.9 - Gastro-esophageal reflux disease without esophagitis (5) Back pain: Code(s): M54.9 - Dorsalgia, unspecified Category: Medical (6) Thoracic spondylosis: Code(s): M47.814 - Spondylosis without myelopathy or radiculopathy, thoracic region Category: Medical (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 I am referring her to Pain Mgmt as she had a lumbar MRI in 2006 and she likely needs this updated for best diagnostic and treatment plan. She has an upcoming CT of abd and pelvis as well. She is not sleeping r/t her severe pain, and she looks very fatigued today. We discuss the elevated alk phos, and there does not seem to be any indication of primary biliary cholangitis or Paget's disease. I think she just has a higher than normal alk-phos without any disease burden. This is reassuring to her. She does not want anymore medications so were not going to treat but I will refer her to pain management to see if she would get an MRI. Return office visit after CT scan. Orders: Referrals Pain Management Referral M54.9 - Dorsalgia, unspecified, M47.814 - Spondylosis without myelopathy or radiculopathy, thoracic region, M47.816 - Spondylosis without myelopathy or radiculopathy, lumbar region Laboratory Tests 06/21/24 15:01 WBC 6.2 Hgb 14.6 Hct 40.9 Plt Count 149 L Total Bilirubin 1.0 Direct Bilirubin 0.2 AST 55 H ALT 36 H Alkaline Phosphatase [address] ABD AND PELVIS 06/21/24 FINDINGS: LUNG BASES: Emphysematous changes are seen at the lung bases with some scarring and nonspecific groundglass changes. LIVER, GALLBLADDER, AND BILIARY TREE: The liver is enlarged measuring 20.1 cm in greatest length with decreased attenuation consistent with hepatic steatosis. No focal hepatic lesion or intrahepatic biliary ductal dilatation is present. Status post cholecystectomy with prominent common bile duct which may be normal in this setting. PANCREAS: Unremarkable. SPLEEN: Spleen is enlarged at 13.2 cm in greatest length ADRENAL GLANDS: Unremarkable. KIDNEYS AND URETERS: The kidneys are normal in size, shape, and attenuation. No hydronephrosis, hydroureter, or calculi seen. No perinephric stranding. A benign left upper pole 1.8 cm Bosniak class I renal cyst is noted which requires no additional imaging or follow up. No solid renal masses are seen. BLADDER: The bladder demonstrates symmetric wall thickening. GASTROINTESTINAL TRACT: The small and large bowel are unremarkable. The appendix is unremarkable. ABDOMINAL WALL: No significant hernia is appreciated. LYMPH NODES: Normal. VASCULAR: There is marked reflux into a dilated left gonadal vein with associated large number of left-sided pelvic varices. Calcific atherosclerotic changes are present in the aorta and iliofemoral vessels. There is no evidence of an abdominal aortic aneurysm.a PELVIC VISCERA: The uterus and adnexa are unremarkable aside from the presence of the above-mentioned varices. OSSEOUS STRUCTURES: Unremarkable. CT/CT abdomen pelvis w IV con IMPRESSION: 1. A cause for the patient's right lower quadrant pain has not been found. The appendix is normal. 2. Incidental note made of an enlarged fatty liver, mild splenomegaly, cholecystectomy, symmetric bladder wall thickening and marked reflux into a dilated left gonadal vein with associated pelvic varices. This may be a cause of chronic pelvic pain especially if aggravated by the upright position and relieved with the supine position. If the patient has such symptoms, she may benefit from consultation with an interventional radiologist. TODAY'S VISIT (she likes Adalgisa Hargrove! It appears she went off of her Trulicity, her sugars became uncontrolled and this caused her increased transaminases. She describes a left sided abd throbbing/pounding pain, that is in her back and keeps her up at night. Her recent CT does show possible pelvic congestion syndrome and I am not certain if this could be a c/f in her pain. She has had a pelvic US that is not yet read ordered by [facility]. She can not take opioids r/t N/V so I suggest tyenol with NSAID which she has not tried. She has been taking more NSIADS for this pain and this is worsening N/V and GERD. She is quite burdened by all of my pills and is trying to cut out pills and has declined PPI or H2 therapy for many years. Given her recent poorly controlled NIDDM she may benefit form GES. She is very discouraged with the lack of answers. ROV 3 mos. PFS Medical History Encounter for well woman exam with routine gynecological exam Diabetes mellitus Physical exam Vaginal burning Vaginal itching Basilar migraine Hyperlipidemia LDL goal <70 Acute vaginitis Encounter for annual routine gynecological examination Hospital discharge follow-up Shortness of breath COVID-19 Dysuria Vaginal irritation Herpes simplex virus (HSV) infection Intertrigo Diabetes mellitus Migraine with aura Hypertension Renal calculi Chest pain Mixed hyperlipidemia Fibromyalgia Chronic neck pain Nickel allergy Nickel dermatitis Polyarthralgia Surgical History H/O esophagogastroduodenoscopy History of prior ablation treatment History of discectomy History of laparoscopy History of tubal ligation History of colonoscopy History of laparoscopic cholecystectomy History of section Family History Father Prostate cancer Diabetes High cholesterol HTN (hypertension) Mother Liver problem Diabetes High cholesterol HTN (hypertension) Family/Other Diabetes High cholesterol HTN (hypertension) Cancer Social History Household Members: Children Household Members Other:: Son Housing: Apartment Alcohol intake: never Comment: pt refuses bed/chair alarm Patient Tobacco Use Status: Former Tobacco user Tobacco use type: Cigarette Years Smoked: 18 e-Cigarette/Vaping Use: Never Used Second Hand Smoke Exposure: No service: No Current occupational status: disabled Sexual orientation: Straight/Heterosexual Gender identity: Female Cognitive needs: No Hearing needs: No Vision needs: No Review of Systems Const Denies fatigue, Denies fever(s), Denies night sweats, Denies poor appetite and Denies weight loss Eyes Reports requires corrective lenses ENT Reports Normal hearing present, Denies dental pain, Denies dysphagia, Denies hearing loss, Denies mouth pain, Denies odynophagia, Denies throat swelling, Denies tongue swelling and Reports other (Dentition adequate) GI Details: Denies abdominal pain, Denies melena, Denies bloating, Denies hematochezia, Denies constipation, Denies GI cramping, Denies dysphagia, Denies excessive flatus, Denies early satiety, Denies heartburn, Denies diarrhea, Denies nausea, Denies odynophagia, Denies vomiting and Denies hematemesis Skin/Breast Denies pruritus, Denies lesions, Denies rash and Denies jaundice Neuro Reports Normal hearing present and Denies Abnormal speech present Endo Denies fatigue Aller/Immun Denies throat swelling and Denies tongue swelling Physical Exam Vital Signs: Last Vital Signs Pulse 109 H 07/19/24 13:39 BP 122/93 H 07/19/24 13:39 BMI result Body Mass Index 27.7 Const General: cooperative, no acute distress, well developed and well groomed Nutritional Appearance: well nourished, obese and overweight Orientation/consciousness: oriented to person, oriented to place and oriented to time Limitations: No language barrier, ambulation with cane, ambulation with walker and wheelchair HEENT Head: Yes normocephalic and Yes atraumatic Eyes General: appearance normal, both eyes and all related structures Pupils: Equal, round and reactive pupils present Neck Neck: Yes normal visual inspection and Yes no lymphadenopathy Thyroid: Thyroid normal Resp Effort & Inspection: normal respiratory effort and able to speak in complete sentences Auscultation: clear to auscultation bilaterally Cardio Rate: regular rate Rhythm: regular rhythm Heart sounds: Normal, physiologic split S2 sound present Peripheral pulses: radial pulses present and posterior tibial pulses present GI Inspection: Yes distended, No Abdominal panniculus present and Yes obesity Palpation (GI): Soft to palpation, nontender, no guarding, not rigid and No hepatosplenomegaly present Percussion: Yes normal to percussion Auscultation: normal bowel sounds Rectal Exam - Female: deferred Skin General skin exam: no rashes or lesions noted, turgor normal, skin not dry, no jaundice, No spider nevi and no striae Rashes: no rashes Nails: normal Neuro General: oriented to person, oriented to place and oriented to time Cranial nerves: Yes Equal, round and reactive pupils present and Yes Normal hearing present Speech: No Abnormal speech present Extrem General: Yes normal to inspection, No clubbing, No cyanosis and No edema Psych Thought process: Normal thought process present and not confabulating Thought content: Normal thought content present Insight: Good insight present (Psych) Judgement: Good judgement present (Psych) Results Reviewed Results Reviewed: Laboratory Tests 06/21/24 15:01 WBC 6.2 Hgb 14.6 Hct 40.9 Plt Count 149 L Total Bilirubin 1.0 Direct Bilirubin 0.2 AST 55 H ALT 36 H Alkaline Phosphatase [address] ABD AND PELVIS 06/21/24 FINDINGS: LUNG BASES: Emphysematous changes are seen at the lung bases with some scarring and nonspecific groundglass changes. LIVER, GALLBLADDER, AND BILIARY TREE: The liver is enlarged measuring 20.1 cm in greatest length with decreased attenuation consistent with hepatic steatosis. No focal hepatic lesion or intrahepatic biliary ductal dilatation is present. Status post cholecystectomy with prominent common bile duct which may be normal in this setting. PANCREAS: Unremarkable. SPLEEN: Spleen is enlarged at 13.2 cm in greatest length ADRENAL GLANDS: Unremarkable. KIDNEYS AND URETERS: The kidneys are normal in size, shape, and attenuation. No hydronephrosis, hydroureter, or calculi seen. No perinephric stranding. A benign left upper pole 1.8 cm Bosniak class I renal cyst is noted which requires no additional imaging or follow up. No solid renal masses are seen. BLADDER: The bladder demonstrates symmetric wall thickening. GASTROINTESTINAL TRACT: The small and large bowel are unremarkable. The appendix is unremarkable. ABDOMINAL WALL: No significant hernia is appreciated. LYMPH NODES: Normal. VASCULAR: There is marked reflux into a dilated left gonadal vein with associated large number of left-sided pelvic varices. Calcific atherosclerotic changes are present in the aorta and iliofemoral vessels. There is no evidence of an abdominal aortic aneurysm.a PELVIC VISCERA: The uterus and adnexa are unremarkable aside from the presence of the above-mentioned varices. OSSEOUS STRUCTURES: Unremarkable. CT/CT abdomen pelvis w IV con IMPRESSION: 1. A cause for the patient's right lower quadrant pain has not been found. The appendix is normal. 2. Incidental note made of an enlarged fatty liver, mild splenomegaly, cholecystectomy, symmetric bladder wall thickening and marked reflux into a dilated left gonadal vein with associated pelvic varices. This may be a cause of chronic pelvic pain especially if aggravated by the upright position and relieved with the supine position. If the patient has such symptoms, she may benefit from consultation with an interventional radiologist. Assessment & Plan Assessment & Plan (1) Abdominal pain: Code(s): R10.9 - Unspecified abdominal pain Category: Medical (2) GERD (gastroesophageal reflux disease): Code(s): K21.9 - Gastro-esophageal reflux disease without esophagitis Category: Medical Qualifiers: Esophagitis presence: esophagitis presence not specified Qualified Code(s): K21.9 - Gastro-esophageal reflux disease without esophagitis (3) Chronic pancreatitis: Code(s): K86.1 - Other chronic pancreatitis Category: Medical (4) Nausea and vomiting: Code(s): R11.2 - Nausea with vomiting, unspecified Category: Medical (5) Pelvic congestion syndrome: Comment: CT 06/2024 VASCULAR: There is marked reflux into a dilated left gonadal vein with associated large number of left-sided pelvic varices. Code(s): N94.89 - Other specified conditions associated with female genital organs and menstrual cycle Category: Medical (6) Back pain: Code(s): M54.9 - Dorsalgia, unspecified Category: Medical Plan (she likes Adalgisa Hargrove! It appears she went off of her Trulicity, her sugars became uncontrolled and this caused her increased transaminases. She describes a left sided abd throbbing/pounding pain, that is in her back and keeps her up at night. Her recent CT does show possible pelvic congestion syndrome and I am not certain if this could be a c/f in her pain. She has had a pelvic US that is not yet read ordered by [facility]. She can not take opioids r/t N/V so I suggest tyenol with NSAID which she has not tried. She has been taking more NSIADS for this pain and this is worsening N/V and GERD. She is quite burdened by all of my pills and is trying to cut out pills and has declined PPI or H2 therapy for many years. Given her recent poorly controlled NIDDM she may benefit form GES. She is very discouraged with the lack of answers. ROV 3 mos. Orders: Orders NM gastric emptying study 07/19/24 R11.2 - Nausea with vomiting, unspecified Referrals Interventional Radiology Referral N94.89 - Other specified conditions associated with female genital organs and menstrual cycle, M54.9 - Dorsalgia, unspecified, R10.9 - Unspecified abdominal pain Vascular Surgery Referral N94.89 - Other specified conditions associated with female genital organs and menstrual cycle, M54.9 - Dorsalgia, unspecified, R10.9 - Unspecified abdominal pain Coding Level of Care Code Est Pt Level 4 (69372) Diagnoses Abdominal pain R10.9 Gastroesophageal reflux disease, unspecified whether esophagitis present K21.9 Esophagitis presence: esophagitis presence not specified Chronic pancreatitis K86.1 Nausea and vomiting R11.2 Pelvic congestion syndrome N94.89 Back pain M54.9 Time Spent (min) 38
== END 2024-07-19 14:24 | disposition home or self-care (01) ==
LOC: HO.HGI 13:25
PROVIDERS: PCP Internal Medicine; Visit Provider Nurse Practitioner
DX: R10.9 Unspecified abdominal pain (principal); K21.9 Gastro-esophageal reflux disease without esophagitis; K86.1 Other chronic pancreatitis; R11.2 Nausea with vomiting, unspecified; N94.89 Other specified conditions associated with female genital organs and menstrual cycle; M54.9 Dorsalgia, unspecified
CPT/HCPCS: 99214

== ENCOUNTER → 2024-07-19 13:25 | Outpatient (BNVA) | payer OTHER, SELFPAY | PROVIDERS: PCP Internal Medicine; Visit Provider Nurse Practitioner | DX: K29.60 Other gastritis without bleeding (principal); K74.69 Other cirrhosis of liver; K21.9 Gastro-esophageal reflux disease without esophagitis; K86.1 Other chronic pancreatitis; M47.814 Spondylosis without myelopathy or radiculopathy, thoracic region; M47.816 Spondylosis without myelopathy or radiculopathy, lumbar region; N94.89 Other specified conditions associated with female genital organs and menstrual cycle; R74.8 Abnormal levels of other serum enzymes | CPT/HCPCS: 99212 ==

== ENCOUNTER 2024-07-25 13:28 | Outpatient (AMB) | payer OTHER, SELFPAY ==
--- NOTE | 2024-07-25 13:29 | A.OFFVIS_ITS ---
Vital Signs 07/25/24 13:33 Height 4 ft 11 in BP 112/64 Intake Visit Reasons: vag irr Printer Operator: Printer Operator Present (Rsoio) Allergies insulin glargine [From Lantus U-100 Insulin] Allergy (Severe, Verified 07/25/24 13:32) paralized nickel Allergy (Severe, Verified 07/25/24 13:32) Rash Penicillins Allergy (Severe, Verified 07/25/24 13:32) Hives acetaminophen [Percocet] Allergy (Intermediate, Verified 07/25/24 13:32) vomiting cyclobenzaprine [CYCLOBENZAPRINE] Allergy (Intermediate, Verified 07/25/24 13:32) HEADACHE,DIZZINESS divalproex sodium [Depakote] Allergy (Intermediate, Verified 07/25/24 13:32) increase liver enzymes methocarbamol [METHOCARBAMOL] Allergy (Intermediate, Verified 07/25/24 13:32) TICS oxycodone [From PERCOCET] Allergy (Intermediate, Verified 07/25/24 13:32) VOMITING insulin degludec [From Tresiba FlexTouch U-100] Adverse Reaction (Severe, Verified 07/25/24 13:32) loss of balance, body aches liraglutide [From Victoza] Adverse Reaction (Severe, Verified 07/25/24 13:32) hypoglycemia lisinopril Adverse Reaction (Severe, Verified 07/25/24 13:32) Dizziness risperidone [RISPERIDONE] Adverse Reaction (Severe, Verified 07/25/24 13:32) CHEST PAIN baclofen Adverse Reaction (Intermediate, Verified 07/25/24 13:32) Palpitations canagliflozin [Invokana] Adverse Reaction (Intermediate, Verified 07/25/24 13:32) confusion dulaglutide [Trulicity] Adverse Reaction (Intermediate, Verified 07/25/24 13:32) abdominal bloating, numbness, myalgia Narcotics Allergy (Mild, Uncoded 06/21/24 14:36) dizzy, sick Post menopausal: Yes HPI Comments Details: Patient is here today with concerns of external burning around the vaginal opening within a short time after treating for her previous yeast infection. Also has urinary frequency. She admits to elevated blood sugars. Not sexually active. [facility] Medical History Encounter for well woman exam with routine gynecological exam Diabetes mellitus Physical exam Vaginal burning Vaginal itching Basilar migraine Hyperlipidemia LDL goal <70 Acute vaginitis Encounter for annual routine gynecological examination Hospital discharge follow-up Shortness of breath COVID-19 Dysuria Vaginal irritation Herpes simplex virus (HSV) infection Intertrigo Diabetes mellitus Migraine with aura Hypertension Renal calculi Chest pain Mixed hyperlipidemia Fibromyalgia Chronic neck pain Nickel allergy Nickel dermatitis Polyarthralgia Surgical History H/O esophagogastroduodenoscopy History of prior ablation treatment History of discectomy History of laparoscopy History of tubal ligation History of colonoscopy History of laparoscopic cholecystectomy History of section Family History Father Prostate cancer Diabetes High cholesterol HTN (hypertension) Mother Liver problem Diabetes High cholesterol HTN (hypertension) Family/Other Diabetes High cholesterol HTN (hypertension) Cancer Social History Household Members: Children Household Members Other:: Son Housing: Apartment Alcohol intake: former Comment: pt refuses bed/chair alarm Patient Tobacco Use Status: Former Tobacco user Tobacco use type: Cigarette Years Smoked: 18 e-Cigarette/Vaping Use: Never Used Second Hand Smoke Exposure: No service: No Current occupational status: disabled Sexual orientation: Straight/Heterosexual Gender identity: Female Cognitive needs: No Hearing needs: No Vision needs: No Review of Systems Const All systems reviewed & are unremarkable except as noted in HPI and below Physical Exam Vital Signs: Last Vital Signs BP 112/64 07/25/24 13:33 Const General: cooperative, healthy appearing and no acute distress Orientation/consciousness: patient oriented x3 GI Inspection: Yes normal to inspection Palpation (GI): Soft to palpation and Other GI palpation findings present (Nontender) Rectal Exam - Female: visual inspection normal Other: External: Erythema extended to the groin bilaterally General: Yes bladder normal to palpation External Female Exam: normal appearance of the urethra Speculum Exam - Vagina: normal appearance of the vagina, normal palpation and abnormal vaginal discharge (Clumpy) white Speculum Exam - Cervix: normal appearance of the cervix and normal palpation Bimanual exam- vagina & uterus: normal bimanual exam, normal palpation, uterine size normal, bladder normal to palpation, normal palpation, uterine shape normal and non-tender Bimanual Exam- Adnexa, other: normal adnexae Neuro General: patient oriented x3 Results AMB Urinalysis, Automated UA Leukoctes 0 Benedict/uL Last Edit by Kristal Cutler [facility] on 07/25/24 13:58 UA Nitrite Negative Last Edit by Kristal Cutler [facility] on 07/25/24 13:58 UA Urobilinogen 0 mg/dL Last Edit by Kristal Cutler [facility] on 07/25/24 13:5 8 UA Protein 0 mg/dL Last Edit by Kristal Cutler [facility] on 07/25/24 13:58 UA pH 6.5 Last Edit by Kristal Cutler [facility] on 07/25/24 13:58 UA Blood 0 Jose Armando/uL Last Edit by Kristal Cutler [facility] on 07/25/24 13:58 UA Specific [place] 1.010 Last Edit by Kristal Cutler [facility] on 07/25/24 13:58 UA Ketone Positive Last Edit by Kristal Cutler [facility] on 07/25/24 13:58 trace Kristal Cutler 07/25/24 13:58 UA Bilirubin 0 mg/dL Last Edit by Kristal Cutler [facility] on 07/25/24 13:58 UA Glucose 3 mg/dL Last Edit by Kristal Cutler [facility] on 07/25/24 13:58 Assessment & Plan Assessment & Plan (1) Vulvar burning: Code(s): N94.89 - Other specified conditions associated with female genital organs and menstrual cycle (2) Frequency of urination: Code(s): R35.0 - Frequency of micturition Plan Discussed: Await results from BV panel for plan of care. Initiate treatment for yeast- Terazol x7, and topical cream Rx sent in. Advised to continue to eat healthy monitor blood sugars and follow up with her provider next week for her DM management. Urine dip today-trace ketones, 3+ glucose. All of her questions and concerns were addressed to the best of my ability and shared decision making. She is agreeable to the plan of care. This note is constructed using voice recognition software. While every effort has been made to ensure accuracy, subassemblies wirer errors may have been included. Orders: Orders AMB Urinalysis Automated Today R35.0 - Frequency of micturition Bacterial Vaginosis Panel Today N94.89 - Other specified conditions associated with female genital organs and menstrual cycle Medications: New terconazole 0.4% 1 appful vaginal BEDTIME 7 days 45 grams 0RF Discontinued miconazole nitrate 2% (Monistat 7) Discontinued Reason: Order 1 appful vaginal BEDTIME 7 days 45 grams 0RF Coding Level of Care Code Est Pt Level 3 (70011) Diagnoses Vulvar burning N94.89 Frequency of urination R35.0
[2024-07-25 13:33] VITALS: BP 112/64
== END 2024-07-25 14:00 | disposition home or self-care (01) ==
LOC: HO.HWS 13:28
PROVIDERS: PCP Internal Medicine; Visit Provider Advanced Practice Midwife
DX: N94.89 Other specified conditions associated with female genital organs and menstrual cycle (principal); R35.0 Frequency of micturition
CPT/HCPCS: 99213

== ENCOUNTER 2024-07-25 13:28 | Outpatient (REF) | payer OTHER, SELFPAY ==
[2024-07-25 17:58] LABS: Bacterial Vaginosis PCR NEGATIVE (Negative); Candida Group PCR NOT DETECTED (Not Detect); Candida glab krusei PCR NOT DETECTED (Not Detect); Trichomonas vaginalis PCR NOT DETECTED (Not Detect)
== END 2024-07-25 13:29 | disposition home or self-care (01) ==
LOC: HO.LNP 13:28
PROVIDERS: PCP Internal Medicine; Visit Provider Advanced Practice Midwife
DX: N94.89 Other specified conditions associated with female genital organs and menstrual cycle (principal); R35.0 Frequency of micturition
CPT/HCPCS: 0352U; 81003; 99212

== ENCOUNTER 2024-08-03 10:59 | Outpatient (AMB) | payer OTHER, SELFPAY ==
--- NOTE | 2024-08-03 11:03 | A.OFFVIS_ITS ---
Vital Signs 08/03/24 11:04 Height 4 ft 11 in Weight 143 lb 4.807 oz BMI 28.9 BP 118/82 Blood Pressure Location Rt brachial Position Sitting Pulse 96 Pulse Source Pulse Oximeter Intake Visit Reasons: DM/LVM Intake Note: Patient presents today for to establish treatment for Type 2 Diabetes Mellitus: Last Diabetic eye exam was on: DUE Last Podiatry exam was on: Does not see a Dehydrating Press Operator Most recent HbA1c: 13.5%, 08/03/2024 Random Glucose- 330 mg/dL, Today Mender Hand Required: No Accompanied by: Self / Same As Patient Allergies insulin glargine [From Lantus U-100 Insulin] Allergy (Severe, Verified 08/09/24 13:48) paralized nickel Allergy (Severe, Verified 08/09/24 13:48) Rash Penicillins Allergy (Severe, Verified 08/09/24 13:48) Hives acetaminophen [Percocet] Allergy (Intermediate, Verified 08/09/24 13:48) vomiting cyclobenzaprine [CYCLOBENZAPRINE] Allergy (Intermediate, Verified 08/09/24 13:48) HEADACHE,DIZZINESS divalproex sodium [Depakote] Allergy (Intermediate, Verified 08/09/24 13:48) increase liver enzymes methocarbamol [METHOCARBAMOL] Allergy (Intermediate, Verified 08/09/24 13:48) TICS oxycodone [From PERCOCET] Allergy (Intermediate, Verified 08/09/24 13:48) VOMITING insulin degludec [From Tresiba FlexTouch U-100] Adverse Reaction (Severe, Verified 08/09/24 13:48) loss of balance, body aches liraglutide [From Victoza] Adverse Reaction (Severe, Verified 08/09/24 13:48) hypoglycemia lisinopril Adverse Reaction (Severe, Verified 08/09/24 13:48) Dizziness risperidone [RISPERIDONE] Adverse Reaction (Severe, Verified 08/09/24 13:48) CHEST PAIN baclofen Adverse Reaction (Intermediate, Verified 08/09/24 13:48) Palpitations canagliflozin [Invokana] Adverse Reaction (Intermediate, Verified 08/09/24 13:48) confusion dulaglutide [Trulicity] Adverse Reaction (Intermediate, Verified 08/09/24 13:48) abdominal bloating, numbness, myalgia Narcotics Allergy (Mild, Uncoded 08/09/24 13:48) dizzy, sick HPI Comments Details: This is a 63-year-old female with type 2 diabetes presenting for consult Med Hx: bipolar disorder, cirrhosis, diabetes mellitus type 2 on long-term current use of insulin, hyperlipidemia, polyarthralgia 07/2024 A1C 13.5%. She is checking glucose at home but did not bring her meter No CGM: sensor was causing bleeding. Current prescribed medications: Humalog 20 TID (compliant), compliant with Trulicity 1.5 weekly. Toujeo 10 qhs (never started). Did not like lantus. Reports she has been better with diet and blood glucose has improved from highs of 600s to 200s. No hypoglycemia. Past medications: actos (says gave her hypoglycemia), glipizide (says gave her hypoglycemia), Victoza (hypoglycemia), Tresiba (balance issues), Lantus (muscle weakness), SGLT-vaginal rash Micro/Macrovasular complications: neuropathy Eye exam due Podiatry-declines ROS CONSTITUTIONAL: Denies weight loss, fever and chills. HEENT: Denies changes in vision and hearing. RESPIRATORY: Denies SOB and cough. CV: Denies palpitations and CP GI: Denies abdominal pain, nausea, vomiting and diarrhea. Endorses chronic bloating : Denies dysuria and urinary frequency. MSK: Denies new myalgia and joint pain. SKIN: Denies rash and pruritus. NEUROLOGICAL: Denies headache PSYCHIATRIC: Denies recent changes in mood. PHYSICAL EXAM: GENERAL: Alert and oriented x 3. NAD EYES: EOMI. Anicteric. HENT: Moist mucous membranes. No scleral icterus. No cervical lymphadenopathy. LUNGS: Clear to auscultation bilaterally. CARDIOVASCULAR: Regular rate and rhythm. No murmur. No JVD. ABDOMEN: Soft, obese, non-tender +bs EXTREMITIES: No edema. Non-tender. SKIN: No rashes or lesions. Warm. NEUROLOGIC: No focal neurological deficits. CN II-XII grossly intact PSYCHIATRIC: Cooperative. Appropriate mood and affect [facility] Medical History Encounter for well woman exam with routine gynecological exam Diabetes mellitus Physical exam Vaginal burning Vaginal itching Basilar migraine Hyperlipidemia LDL goal <70 Acute vaginitis Encounter for annual routine gynecological examination Hospital discharge follow-up Shortness of breath COVID-19 Dysuria Vaginal irritation Herpes simplex virus (HSV) infection Intertrigo Diabetes mellitus Migraine with aura Hypertension Renal calculi Chest pain Mixed hyperlipidemia Fibromyalgia Chronic neck pain Nickel allergy Nickel dermatitis Polyarthralgia Surgical History H/O esophagogastroduodenoscopy History of prior ablation treatment History of discectomy History of laparoscopy History of tubal ligation History of colonoscopy History of laparoscopic cholecystectomy History of section Family History Father Prostate cancer Diabetes High cholesterol HTN (hypertension) Mother Liver problem Diabetes High cholesterol HTN (hypertension) Family/Other Diabetes High cholesterol HTN (hypertension) Cancer Social History Household Members: Children Household Members Other:: Son Housing: Apartment Alcohol intake: never Comment: pt refuses bed/chair alarm Patient Tobacco Use Status: Former Tobacco user Tobacco use type: Cigarette Years Smoked: 18 Smoked in Last 30 Days: No e-Cigarette/Vaping Use: Never Used Second Hand Smoke Exposure: No Use of substances other than those prescribed or required for medical reasons: No Advance Directives: No Advance Directives Information Provided: Yes Do you have a plan to hurt others: No Plan service: No Current occupational status: disabled Sexual orientation: Straight/Heterosexual Gender identity: Female Cognitive needs: No Hearing needs: No Vision needs: No Physical Exam Vital Signs: Last Vital Signs Pulse 96 08/03/24 11:04 BP 118/82 08/03/24 11:04 BMI result Body Mass Index 28.9 Results AMB Hemoglobin A1c AMB Hemoglobin A1c 13.5 % Last Edit by CHAI Reyes on 08/03/24 11:2 5 Results Reviewed Results Reviewed: Laboratory Last Values Glucose (Clinic) 340 mg/dL (60-115) H 08/03/24 11:07 Hgb A1c (Clinic) 13.5 % (4.0-6.0) H 08/03/24 11:24 Assessment & Plan Assessment & Plan (1) Diabetes mellitus: Code(s): E11.9 - Type 2 diabetes mellitus without complications Category: Medical Qualifiers: Diabetes mellitus complication status: with hyperglycemia Diabetes mellitus terminal clerk insulin use: with terminal clerk use Diabetes mellitus type: type 2 Qualified Code(s): E11.65 - Type 2 diabetes mellitus with hyperglycemia; Z79.4 - FPC (current) use of insulin Plan: Uncontrolled. Intolerant to medication. Hesitant to change/increase medications. She is not taking her long acting insulin and does not want to start it at this time. Increase meatime insulin to 22 u TID, continue trulicity Orders: Orders AMB Hemoglobin A1c 08/03/24 E11.65 - Type 2 diabetes mellitus with hyperglycemia, Z79.4 - FPC (current) use of insulin Medications: Discontinued pioglitazone Discontinued Reason: Doctor's Order 30 mg PO DAILY 90 days 90 tabs 3RF glipizide ER Discontinued Reason: Doctor's Order 10 mg PO BID 90 tabs 3RF Coding Level of Care Code Est Pt Level 4 (49604) Diagnoses Type 2 diabetes mellitus with hyperglycemia, with long-term current use of insulin E11.65; Z79.4 Diabetes mellitus complication status: with hyperglycemia Diabetes mellitus senior living insulin use: with terminal clerk use Diabetes mellitus type: type 2
[2024-08-03 11:04] VITALS: BP 118/82; PULSE 96; BMI 28.9
[2024-08-03 11:13] LABS: Glucose, Whole Blood 340 mg/dL (60-115)
== END 2024-08-03 11:40 | disposition home or self-care (01) ==
PROVIDERS: PCP Internal Medicine; Visit Provider Internal Medicine
DX: E11.65 Type 2 diabetes mellitus with hyperglycemia (principal); Z79.4 Long term (current) use of insulin

== ENCOUNTER → 2024-08-03 10:59 | Outpatient (BNVA) | payer OTHER, SELFPAY | PROVIDERS: PCP Internal Medicine; Visit Provider Internal Medicine | DX: E11.65 Type 2 diabetes mellitus with hyperglycemia (principal); Z79.4 Long term (current) use of insulin | CPT/HCPCS: 82947; 83036; 99212 ==

== ENCOUNTER 2024-08-09 13:40 | Emergency (ER) | payer OTHER, SELFPAY ==
--- NOTE | 2024-08-09 13:43 | ED_ITS ---
HPI - General Adult General Chief complaint: General Medical Stated complaint: jaw+ear pain , swollen eye Time Seen by Provider: 08/09/24 14:27 Source: patient and old records reviewed Mode of arrival: ambulatory Limitations: no limitations History of Present Illness ED Provider: SIMI ALEXANDER narrative: 64 yo female with PMH of DM, n/v, cirrhosis, bipolar disorder, blepharitis, TIA, HLD, GERD, pancreatitis, fibromyalgia who presents with c/o noting her BS was over 600 yesterday. She does have extensive allergies but denies exposures. She started with R eye itching and swelling yesterday she tried warm compress but it did not improve - she notes now she has more swelling and itching - no airway or oral issues, she feels swelling and pain into the R ear. She came in worried about infection. MD complaint: eye swelling Onset (ago): day(s) (1) Location: eyes Severity: mild Quality: other (aching but pruritic) Pain Consistency: constant Relieving factors: none Exacerbating factors: other Associated symptoms: denies other symptoms Treatments prior to arrival: none Related Data Home Medications ?Medication ?Instructions ?Recorded ?Confirmed diazepam 10 mg tablet 10 mg PO BID PRN Muscle Spasm 09/03/20 12/02/23 alpha lipoic acid 600 mg capsule 600 mg PO BIDAC 03/01/22 12/02/23 cyanocobalamin (vitamin B-12) 1,000 mcg PO DAILY 03/01/22 12/02/23 1,000 mcg tablet vitamin B complex 1 tab PO DAILY 03/01/22 12/02/23 melatonin 10 mg tablet 10 mg PO BEDTIME PRN Sleep 04/14/23 12/02/23 melatonin ER 10 mg-pyridoxine HCl 1 tab PO BEDTIME PRN 04/29/23 12/02/23 (B6) 10 mg tab, immed-extend release oxcarbazepine 150 mg tablet 150 mg PO DAILY 02/17/24 insulin lispro 200 unit/mL (3 mL) 22 unit subcut TID 04/06/24 subcutaneous pen (Humalog KwikPen U-200 Insulin) oxcarbazepine 600 mg tablet 600 mg PO DAILY 05/30/24 melatonin 10 mg tablet,extended 5 mg PO BEDTIME PRN 07/19/24 release Previous Rx's ?Medication ?Instructions ?Recorded blood-glucose meter #1 ea 07/31/20 ibuprofen 600 mg tablet 600 mg PO TID PRN pain 90 days 07/30/22 #270 tabs albuterol sulfate 90 mcg/actuation 1 - 2 puff inhalation Q4-6H PRN 03/11/23 aerosol inhaler for dyspnea #8.5 grams blood pressure monitor #1 ea 03/11/23 blood-glucose sensor (Dexcom G7 #1 ea 09/07/23 Sensor device) mupirocin 2 % topical ointment 1 appl topical BID #15 grams 02/03/24 flash glucose sensor (FreeStyle #1 ea 03/14/24 Avi 14 Day Sensor kit) pen needle, diabetic 31 gauge x #50 ea 03/14/24 3 pen needle, diabetic 31 gauge x #100 ea 03/14/2402/02 (Advocate Pen Needle) pen needle, diabetic, safety 30 #100 ea 03/14/24 gauge x 5/16 (Assure ID Pen Needle) carisoprodol 350 mg tablet 350 mg PO DAILY PRN Muscle Spasm 04/06/24 30 days #30 tabs fenofibrate 54 mg tablet 54 mg PO DAILY 90 days #90 tabs 04/06/24 FreeStyle Lancets 28 gauge #300 ea 05/25/24 (lancets) FreeStyle Lite Meter #1 ea 05/25/24 (blood-glucose meter) FreeStyle Lite Strips (blood sugar #300 ea 05/25/24 diagnostic) Trulicity 1.5 mg/0.5 mL 1.5 mg (0.5 mL) subcut QWEEK #6 mL 05/25/24 subcutaneous pen injector (dulaglutide) clotrimazole-betamethasone 1 1 appl topical BID itching 7 days 07/07/24 %-0.05 % topical cream #45 grams terconazole 0.4 % vaginal cream 1 appful vaginal BEDTIME 7 days 07/25/24 #45 grams cholecalciferol (vitamin D3) 25 25 mcg PO DAILY 90 days #90 caps 08/07/24 mcg (1,000 unit) capsule erythromycin 5 mg/gram (0.5 %) eye 0.5 inch ophthalmic (eye) BID 5 08/09/24 ointment days #3.5 grams sulfamethoxazole 800 1 tab PO BID #10 tabs 08/09/24 mg-trimethoprim 160 mg tablet (Bactrim DS) Allergies Allergy/AdvReac Type Severity Reaction Status Date / Time insulin glargine Allergy Severe paralized Verified 08/09/24 13:48 [From Lantus U-100 Insulin] nickel Allergy Severe Rash Verified 08/09/24 13:48 Penicillins Allergy Severe Hives Verified 08/09/24 13:48 acetaminophen [Percocet] Allergy Intermediate vomiting Verified 08/09/24 13:48 cyclobenzaprine Allergy Intermediate HEADACHE,DI Verified 08/09/24 13:48 [CYCLOBENZAPRINE] ZZINESS divalproex sodium [Depakote] Allergy Intermediate increase Verified 08/09/24 13:48 liver enzymes methocarbamol [METHOCARBAMOL] Allergy Intermediate TICS Verified 08/09/24 13:48 oxycodone [From PERCOCET] Allergy Intermediate VOMITING Verified 08/09/24 13:48 insulin degludec AdvReac Severe loss of Verified 08/09/24 13:48 [From Tresiba FlexTouch balance, U-100] body aches liraglutide [From Victoza] AdvReac Severe hypoglycemi Verified 08/09/24 13:48 a lisinopril AdvReac Severe Dizziness Verified 08/09/24 13:48 risperidone [RISPERIDONE] AdvReac Severe CHEST PAIN Verified 08/09/24 13:48 baclofen AdvReac Intermediate Palpitation Verified 08/09/24 13:48 s canagliflozin [Invokana] AdvReac Intermediate confusion Verified 08/09/24 13:48 dulaglutide [Trulicity] AdvReac Intermediate abdominal Verified 08/09/24 13:48 bloating, numbness, myalgia Narcotics Allergy Mild dizzy, sick Uncoded 08/09/24 13:48 Review of Systems 2 Review of Systems: Constitutional : No Fever, No Chills, No Fatigue ENT/Mouth : No sore throat, No Rhinorrhea Eyes: pos Eye Pain, pos Swelling, No Redness Cardiovascular : No Chest Pain, No SOB, No Dyspnea on Exertion Respiratory : No Cough, No Sputum Gastrointestinal : No Nausea, No Vomiting, No Diarrhea, No abdominal Pain Genitourinary : No Dysuria, No Urinary Frequency, No Hematuria, Musculoskeletal : No joint pain, No Myalgias, No Joint Swelling Skin : pos Skin Lesions, No rash Neuro : No Weakness, No Numbness, No Dizziness, no Headache All other systems reviewed and are negative PMFSH Past Medical History Attestation statement: The following information was validated with the patient. Source: old records reviewed Medical History Encounter for well woman exam with routine gynecological exam Diabetes mellitus Physical exam Vaginal burning Vaginal itching Basilar migraine Hyperlipidemia LDL goal <70 Acute vaginitis Encounter for annual routine gynecological examination Hospital discharge follow-up Shortness of breath COVID-19 Dysuria Vaginal irritation Herpes simplex virus (HSV) infection Intertrigo Diabetes mellitus Migraine with aura Hypertension Renal calculi Chest pain Mixed hyperlipidemia Fibromyalgia Chronic neck pain Nickel allergy Nickel dermatitis Polyarthralgia Surgical History H/O esophagogastroduodenoscopy History of prior ablation treatment History of discectomy History of laparoscopy History of tubal ligation History of colonoscopy History of laparoscopic cholecystectomy History of section Family History Family History Father Prostate cancer Diabetes High cholesterol HTN (hypertension) Mother Liver problem Diabetes High cholesterol HTN (hypertension) Family/Other Diabetes High cholesterol HTN (hypertension) Cancer Social History Social History Household Members: Children Household Members Other:: Son Housing: Apartment Alcohol intake: never Comment: pt refuses bed/chair alarm Patient Tobacco Use Status: Former Tobacco user Tobacco use type: Cigarette Years Smoked: 18 Smoked in Last 30 Days: No e-Cigarette/Vaping Use: Never Used Second Hand Smoke Exposure: No Use of substances other than those prescribed or required for medical reasons: No Advance Directives: No Advance Directives Information Provided: Yes Do you have a plan to hurt others: No Plan service: No Current occupational status: disabled Sexual orientation: Straight/Heterosexual Gender identity: Female Cognitive needs: No Hearing needs: No Vision needs: No Physical Exam ED Vital Signs: Vital Signs - 24 hr 08/09/24 13:45 Temperature 98 F Pulse Rate 90 Respiratory Rate 19 Blood Pressure 125/74 Pulse Oximetry 99 Oxygen Delivery Method Room Air BMI result Body Mass Index 27.9 Appearance: Alert. Oriented X3. No acute distress. Eyes: Pupils equal, round and reactive to light. ENT: Pharynx normal. no swelling. I do not appreciate any swelling other than R eyelid which is more boggy and not infectious, no proptosis, EOMi, normal eye, no change in vision, no lymphadenopathy, R TM normal normal ext auditory canal Neck: Normal inspection. Neck supple. CVS: Normal heart rate and rhythm. Pulses normal. Respiratory: No respiratory distress. Breath sounds normal. Abdomen: Soft and non-tender. Skin: Skin warm and dry. Normal skin color. Normal skin turgor. Extremities: No lower extremity edema. No calf ttp Neuro: Oriented X 3. No motor deficit. No sensory deficit. Course Course Course Narrative: This is a rapid medical exam performed by Kasie Crump NP: Additional HPI, ROS, PE not included below will be deferred to primary provider. Patient is a 64-year-old female presenting with complaint of right sided facial pain, swelling and itching. States yesterday her blood glucose levels were in the 600s. Today glucose was 200. Symptoms began with right eye/side of face becoming pruritic. This am, face was swollen. Plan: Labs Reevaluation(s) Reevaluation #1: not in DKA Medications Administered Discontinued Medications Generic Name Dose Route Start Last Admin Trade Name Freq PRN Reason Stop Dose Admin Diphenhydramine HCl 25 mg 08/09/24 14:38 08/09/24 14:49 Diphenhydramine Hcl 50 Mg/Ml Vial IVPUSH 08/09/24 14:39 25 mg ONCE ONE Administration Famotidine 20 mg 08/09/24 14:38 08/09/24 14:50 Famotidine/Pf 20 Mg/2 Ml Vial IVPUSH 08/09/24 14:39 20 mg ONCE ONE Administration Insulin Human Lispro 8 unit 08/09/24 15:23 08/09/24 15:41 Insulin Lispro 100 Unit/Ml 3 Ml Vial SUBCUT 08/09/24 15:24 8 unit ONCE ONE Administration Methylprednisolone Sodium Succinate 60 mg 08/09/24 14:38 08/09/24 14:49 Methylprednisolone Sod Succ 125 Mg/2 Ml Vial IVPUSH 08/09/24 14:39 60 mg ONCE ONE Administration Medical Decision Making Medical Decision Making MDM Narrative: 64 yo female with PMH of DM, n/v, cirrhosis, bipolar disorder, blepharitis, TIA, HLD, GERD, pancreatitis, fibromyalgia who presents with c/o R eye swelling but it looks more allergic it is itchy and boggy no periorbital cellulitis has normal EOMi, no proptosis doubt ocular abscess - at this time basic labs, infl markers and IV steroids/pepcid she has prior allergies and this appears more allergic though early blepharitis possible. Differential Diagnosis Differential Diagnoses: The differential diagnosis associated with the presentation includes allergic reaction, blepharitis, very mild swelling no proptosis of eye - EOMi doubt orbital cellulitis Admission/Observation Consideration of admission/observation: Escalation of care including admission/observation considered BS decreased after insulin Lab Data MDM Lab Attestation statement: I reviewed the patient's lab results. 08/09/24 14:40 08/09/24 14:40 Labs: Lab Results 08/09/24 Range/Units 14:40 WBC 5.2 (4.8-10.8) X10*3/uL RBC 4.82 (4.20-5.50) X10*6/uL Hgb 14.5 (12.0-16.0) g/dl Hct 41.1 (37.0-47.0) % MCV 85.3 (80.0-98.0) fL MCH 30.1 (27.0-33.0) pg MCHC 35.3 H (31.0-35.0) g/dl RDW 12.5 (11.0-16.0) % Plt Count 150 L (160-400) X10*3/uL MPV 11.4 (9.4-12.3) fL Immature Gran % (Auto) 0.2 (0.0-0.4) % Neut % (Auto) 47.9 (45-73) % Lymph % (Auto) 42.1 H (20-40) % [place] % (Auto) 7.3 (2-11) % Eos % (Auto) 1.9 (0-4) % Baso % (Auto) 0.6 (0-2) % Lymph # (Auto) 2.2 (1.2-4.9) X10*3/uL [place] # (Auto) 0.4 (0.1-1.2) X10*3/uL Eos # (Auto) 0.1 (0.0-0.4) X10*3/uL Baso # (Auto) 0.0 (0.0-0.2) X10*3/uL Abs Immat Gran (auto) 0.01 (0.00-0.03) X10*3/uL Absolute Neuts (auto) 2.5 (2.0-8.3) x10*3/uL Absolute Nucleated RBC 0.000 (0.0-0.012) X10*3/uL Nucleated RBC % (auto) 0.0 (0.0-0.2) /100WBC ESR 14 (0-20) MM/HR Sodium 135 (135-145) mmol/L Potassium 4.3 (3.3-5.1) mmol/L Chloride 98 (96-108) mmol/L Carbon Dioxide 28 (22-29) mmol/L Anion Gap 13 (12-20) BUN 8 L (9-16) mg/dL Creatinine 0.75 (0.5-1.4) mg/dL Estim Creat Clear Calc 61.7 Estimated GFR > 60 Random Glucose 405 H* (60-115) mg/dL Calcium 9.2 (8.4-10.2) mg/dL Total Bilirubin 0.9 (0.0-1.0) mg/dL AST 61 H (5-31) U/L ALT 57 H (0-31) U/L Alkaline Phosphatase 150 H (39-117) U/L C-Reactive Protein 0.48 (< or = 0.50) mg/dL Total Protein 7.4 (6.5-8.0) g/dL Albumin 3.9 (3.5-5.0) g/dL Urine Color Yellow Urine Appearance Clear Urine pH 7.5 (5.0-9.0) Ur Specific [place] >= 1.030 H (1.005-1.025) Urine Protein Negative (Neg-Trace) mg/dL Urine Glucose (UA) >=1000 H (Negative) mg/dL Urine Ketones Trace (Negative) mg/dL Urine Blood Negative (Negative) Urine Nitrite Negative (Negative) Ur Leukocyte Esterase Small (1+) H (Negative) Urine RBC 0-2 (0-2) /HPF Urine WBC 11-20 H (0-5) /HPF Ur Squamous Epith Cells 0-2 (0-2) /HPF Urine Bacteria None Seen (None Seen) Hyaline Casts 0-2 (0-2) /LPF External Record Review External record reviewed: Outpatient record Prescription Management I considered prescription management with: Antibiotic and Other Discharge Plan Discharge Clinical Impression: Acute hyperglycemia Blepharitis Qualifiers: Blepharitis type: unspecified type Laterality: right Eyelid: upper Qualified Code(s): H01.001 - Unspecified blepharitis right upper eyelid Patient Disposition: Home, Self-Care Instructions: Blepharitis (ED), Diabetic Hyperglycemia (ED) Additional Instructions: infectious inflammatory markers negative blood sugar high but otherwise labs reassuring and at baseline given insulin in the ED return for worsening, pain, swelling, change in vision or any other concerns use ointment, antibiotic, monitor your blood sugars follow up with your doctor if not better in 48 hours Prescriptions: New erythromycin 5 mg/gram (0.5 %) ointment 0.5 inch ophthalmic (eye) BID 5 Days Qty: 3.5 0RF sulfamethoxazole-trimethoprim [Bactrim DS] 800-160 mg tablet 1 tab PO BID Qty: 10 0RF No Action (DME) blood-glucose meter Kit See Rx Instructions .ROUTE .MEDSUPPLY Qty: 1 0RF Rx Instructions: As directed ibuprofen 600 mg tablet 600 mg PO TID PRN (Reason: pain) 90 Days Qty: 270 3RF albuterol sulfate 90 mcg/actuation HFA aerosol inhaler 1 - 2 puff inhalation Q4-6H PRN (Reason: for dyspnea) Qty: 8.5 2RF (DME) blood pressure monitor Kit See Rx Instructions .ROUTE .MEDSUPPLY Qty: 1 0RF Rx Instructions: As directed (DME) Dexcom G7 Sensor Device See Rx Instructions .Route Qty: 1 11RF Rx Instructions: As directed (DME) pen needle, diabetic 31 gauge x 3/16 needle See Rx Instructions topical QID Qty: 50 11RF Rx Instructions: As directed (DME) FreeStyle Avi 14 Day Sensor Kit See Rx Instructions .Route Qty: 1 11RF Rx Instructions: As directed (DME) pen needle, diabetic [Advocate Pen Needle] 31 gauge x 5/16 needle See Rx Instructions .Route Qty: 100 3RF Rx Instructions: Use 1 pen needle once a day (DME) Assure ID Pen Needle 30 gauge x 5/16 needle See Rx Instructions .ROUTE .MEDSUPPLY Qty: 100 6RF Rx Instructions: Use 1 pen needle once a day cholecalciferol (vitamin D3) 25 mcg (1,000 unit) capsule 25 mcg PO DAILY 90 Days Qty: 90 1RF cyanocobalamin (vitamin B-12) 1,000 mcg Tablet 1,000 mcg PO DAILY vitamin B complex Tablet 1 tab PO DAILY alpha lipoic acid 600 mg Capsule 600 mg PO BIDAC melatonin 10 mg tablet 10 mg PO BEDTIME PRN (Reason: Sleep) mupirocin 2 % ointment 1 appl topical BID Qty: 15 0RF diazepam 10 mg tablet 10 mg PO BID PRN (Reason: Muscle Spasm) melatonin-pyridoxine HCl (B6) 10-10 mg tablet, IR and ER, biphasic 1 tab PO BEDTIME PRN Humalog KwikPen Insulin 200 unit/mL (3 mL) insulin pen 22 unit subcut TID carisoprodol 350 mg tablet 350 mg PO DAILY PRN (Reason: Muscle Spasm) 30 Days Qty: 30 0RF fenofibrate 54 mg tablet 54 mg PO DAILY 90 Days Qty: 90 1RF Trulicity 1.5 mg/0.5 mL pen injector 1.5 mg subcut QWEEK Qty: 6 3RF (DME) blood-glucose meter [FreeStyle Lite Meter] Kit See Rx Instructions .Route Qty: 1 0RF Rx Instructions: test 3 times per day (DME) FreeStyle Lite Strips Strip See Rx Instructions .ROUTE .COMPLEX Qty: 300 3RF Dose Instruction: DIRECTED Rx Instructions: three times daily (DME) lancets [FreeStyle Lancets] 28 gauge misc See Rx Instructions .Route Qty: 300 3RF Rx Instructions: three times daily oxcarbazepine 150 mg tablet 150 mg PO DAILY oxcarbazepine 600 mg tablet 600 mg PO DAILY melatonin 10 mg tablet extended release 5 mg PO BEDTIME PRN clotrimazole-betamethasone 1-0.05 % cream 1 appl topical BID 7 Days Qty: 45 0RF Rx Instructions: Not to be combined with other topical corticosteroids. terconazole 0.4 % cream 1 appful vaginal BEDTIME 7 Days Qty: 45 0RF Print Language: Filipino
[2024-08-09 13:45] VITALS: BP 125/74; PULSE 90; RESP 19; TEMP 36.6; O2SAT 99; BMI 27.9
[2024-08-09] MEDS: diphenhydrAMINE HCL 50 MG/ML VIAL 25 MG IVPUSH (14:49)
[2024-08-09] MEDS: methylPREDNISolone Sod Succ 125 MG/2 ML VIAL 60 MG IVPUSH (14:49)
[2024-08-09] MEDS: Famotidine/PF 20 MG/2 ML VIAL IVPUSH (14:50)
[2024-08-09 15:03] LABS: MANUAL DIFF FLAG NO
[2024-08-09 15:04] LABS: Basophils Percent Auto 0.6 % (0-2); Eosinophils Absolute Auto 0.1 X10*3/uL (0.0-0.4); Eosinophils Percent Auto 1.9 % (0-4); Hematocrit 41.1 % (37.0-47.0); Hemoglobin 14.5 g/dl (12.0-16.0); Imm Gran Abs Auto 0.01 X10*3/uL (0.00-0.03); Imm Gran Pct Auto 0.2 % (0.0-0.4); Lymphocytes Absolute Auto 2.2 X10*3/uL (1.2-4.9); Lymphocytes Percent Auto 42.1 % (20-40); Mean Corpuscular HGB Conc 35.3 g/dl (31.0-35.0); Mean Corpuscular Hemoglobin 30.1 pg (27.0-33.0); Mean Corpuscular Volume 85.3 fL (80.0-98.0); Mean Platelet Volume 11.4 fL (9.4-12.3); Monocytes Absolute Auto 0.4 X10*3/uL (0.1-1.2); Monocytes Percent Auto 7.3 % (2-11); Neutrophils Absolute Auto 2.5 x10*3/uL (2.0-8.3); Neutrophils Percent Auto 47.9 % (45-73); Platelet Count 150 X10*3/uL (160-400); Red Blood Count 4.82 X10*6/uL (4.20-5.50); Red Cell Distribution Width 12.5 % (11.0-16.0); White Blood Count 5.2 X10*3/uL (4.8-10.8)
[2024-08-09 15:05] LABS: Appearance Urine Clear; Color Urine Yellow; Glucose Urine UA >=1000 mg/dL (Negative); Leukocyte Esterase Urine Small (1+) (Negative); Nitrite Urine Negative (Negative); PH 7.5 (5.0-9.0); Specific Gravity - Urine >= 1.030 (1.005-1.025); UMIC TRIGGER UACC YES; Urine Blood Negative (Negative); Urine Ketones Trace mg/dL (Negative); Urine Protein Negative (Neg-Trace)
[2024-08-09 15:07] LABS: Bacteria Urine None Seen (None Seen); Hyaline Casts Urine 0-2 /LPF (0-2); RBC Urine 0-2 /HPF (0-2); Squamous Epithelial Cell Urine 0-2 /HPF (0-2); UACC Culture Trigger YES
[2024-08-09 15:16] LABS: C Reactive Protein 0.48 mg/dL (< or = 0.50)
[2024-08-09 15:22] LABS: Alanine Aminotransferase 57 U/L (0-31); Albumin Level 3.9 g/dL (3.5-5.0); Alkaline Phosphatase 150 U/L (39-117); Anion Gap 13 (12-20); Aspartate Amino Transferase 61 U/L (5-31); Bilirubin Total 0.9 mg/dL (0.0-1.0); Blood Urea Nitrogen 8 mg/dL (9-16); Calcium 9.2 mg/dL (8.4-10.2); Carbon Dioxide 28 mmol/L (22-29); Chloride 98 mmol/L (96-108); Creatinine Clr Calc Pharmacy 61.7; Estimated Glomerular Filt Rate > 60; Potassium 4.3 mmol/L (3.3-5.1); Sodium 135 mmol/L (135-145); Total Protein 7.4 g/dL (6.5-8.0)
[2024-08-09 15:23] LABS: Glucose Random 405 mg/dL (60-115)
[2024-08-09 15:41] LABS: Erythrocyte Sedimentation Rate 14 MM/HR (0-20)
[2024-08-09] MEDS: Insulin Lispro 100 UNIT/ML 3 ML VIAL 8 UNIT SUBCUT (15:41)
[2024-08-09 16:27] VITALS: BP 116/65; PULSE 81; RESP 16; TEMP 36.6; O2SAT 98
[2024-08-09 16:58] LABS: Glucose, Whole Blood 301 mg/dL (60-115)
[2024-08-09 17:05] VITALS: BP 116/65; PULSE 81; RESP 18; TEMP 36.6; O2SAT 98
== END 2024-08-09 17:07 | disposition home or self-care (01) ==
PROVIDERS: Emergency Medicine; Registered Nurse Emergency; Emergency Provider Emergency Medicine; PCP Internal Medicine
DX: H01.001 Unspecified blepharitis right upper eyelid (principal); E11.65 Type 2 diabetes mellitus with hyperglycemia; Z87.891 Personal history of nicotine dependence; Z79.899 Other long term (current) drug therapy
CPT/HCPCS: 36415; 80053; 81001; 82947; 85025; 85652; 86140; 87086; 87147; 96374; 96375; 99284; J1200; J2919

== ENCOUNTER 2024-08-28 13:36 | Outpatient (AMB) | payer OTHER, SELFPAY ==
[2024-08-28 13:41] VITALS: BP 122/86; BMI 28.1
--- NOTE | 2024-08-28 13:41 | MHC.PC.OV ---
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 Required: No Accompanied by: Self / Same As Patient Allergies insulin glargine [From Lantus U-100 Insulin] Allergy (Severe, Verified 08/28/24 14:10) paralized nickel Allergy (Severe, Verified 08/28/24 14:10) Rash Penicillins Allergy (Severe, Verified 08/28/24 14:10) Hives acetaminophen [Percocet] Allergy (Intermediate, Verified 08/28/24 14:10) vomiting cyclobenzaprine [CYCLOBENZAPRINE] Allergy (Intermediate, Verified 08/28/24 14:10) HEADACHE,DIZZINESS divalproex sodium [Depakote] Allergy (Intermediate, Verified 08/28/24 14:10) increase liver enzymes methocarbamol [METHOCARBAMOL] Allergy (Intermediate, Verified 08/28/24 14:10) TICS oxycodone [From PERCOCET] Allergy (Intermediate, Verified 08/28/24 14:10) VOMITING insulin degludec [From Tresiba FlexTouch U-100] Adverse Reaction (Severe, Verified 08/28/24 14:10) loss of balance, body aches liraglutide [From Victoza] Adverse Reaction (Severe, Verified 08/28/24 14:10) hypoglycemia lisinopril Adverse Reaction (Severe, Verified 08/28/24 14:10) Dizziness risperidone [RISPERIDONE] Adverse Reaction (Severe, Verified 08/28/24 14:10) CHEST PAIN baclofen Adverse Reaction (Intermediate, Verified 08/28/24 14:10) Palpitations canagliflozin [Invokana] Adverse Reaction (Intermediate, Verified 08/28/24 14:10) confusion dulaglutide [Trulicity] Adverse Reaction (Intermediate, Verified 08/28/24 14:10) abdominal bloating, numbness, myalgia Narcotics Allergy (Mild, Uncoded 08/28/24 14:10) dizzy, sick Medication List - Last Reconciled 08/28/24 by An Aguilar MD albuterol sulfate 90 mcg/actuation 1 - 2 puffs inhalation Q4-6H PRN alpha lipoic acid 600 mg PO BIDAC blood pressure monitor As directed blood-glucose meter As directed blood-glucose sensor (Dexcom G7 Sensor device) As directed carisoprodol 350 mg PO DAILY PRN 30 days cholecalciferol (vitamin D3) 25 mcg PO DAILY 90 days clotrimazole-betamethasone 1-0.05 % 1 appl topical BID 7 days cyanocobalamin (vitamin B-12) 1,000 mcg PO DAILY diazepam 10 mg PO BID PRN erythromycin 0.5 inches ophthalmic (eye) BID 5 days fenofibrate 54 mg PO DAILY 90 days flash glucose sensor (FreeStyle Avi 14 Day Sensor kit) As directed FreeStyle Lancets (lancets) three times daily NS FreeStyle Lite Meter (blood-glucose meter) test 3 times per day NS FreeStyle Lite Strips (blood sugar diagnostic) three times daily NS ibuprofen 600 mg PO TID PRN 90 days insulin lispro (Humalog KwikPen U-200 Insulin) 22 units subcut TID melatonin ER 5 mg PO BEDTIME PRN melatonin-pyridoxine HCl (B6) 10-10 mg ER 1 tab PO BEDTIME PRN mupirocin 2% 1 appl topical BID oxcarbazepine 150 mg PO DAILY oxcarbazepine 600 mg PO DAILY pen needle, diabetic (Advocate Pen Needle) Use 1 pen needle once a day pen needle, diabetic As directed pen needle, diabetic, safety (Assure ID Pen Needle) Use 1 pen needle once a day terconazole 0.4% 1 appful vaginal BEDTIME 7 days Trulicity (dulaglutide) 1.5 mg (0.5 mL) subcut QWEEK NS vitamin B complex 1 tab PO DAILY Tobacco use date assessed: 12/02/23 Dental Screening Dental Screen Date: 08/28/24 Did you have a dental visit in the last 12 months?: No Did you have a dental problem in the last 6 months where you did not have access to dental care?: No Was dental information given to patient?: Patient has dentist HPI HPI Comments History of Present Illness Details The patient is a 64-year-old female presenting with poorly controlled Type 2 Diabetes Mellitus, Hypertension, Bipolar Disorder, and medication management concerns. Her last Hemoglobin A1c was 13.4 one month ago, indicating poor glycemic control. She reported frequent visits to the emergency room due to blood glucose fluctuations and episodes of low blood pressure. The patient has a complex medical history with several drug allergies, including Lantus (causing paralysis), nickel (causing rash), penicillin, and several others, leading to adverse reactions such as loss of balance, chest pain, and confusion. She has been prescribed various medications for her conditions, including Humalog, Soma, and Oxcarbazepine. The patient experiences chronic neck pain and associated vertigo, which she self-manages with Soma as needed. She reported successful weight loss of seven pounds through dietary changes and improved blood pressure and glucose levels due to lifestyle modifications over the holiday period. Her psychiatrist prescribed oxcarbazepine for bipolar disorder, which she has been taking long-term. [facility] Medical History Encounter for well woman exam with routine gynecological exam Diabetes mellitus Physical exam Vaginal burning Vaginal itching Basilar migraine Hyperlipidemia LDL goal <70 Acute vaginitis Encounter for annual routine gynecological examination Hospital discharge follow-up Shortness of breath COVID-19 Dysuria Vaginal irritation Herpes simplex virus (HSV) infection Intertrigo Diabetes mellitus Migraine with aura Hypertension Renal calculi Chest pain Mixed hyperlipidemia Fibromyalgia Chronic neck pain Nickel allergy Nickel dermatitis Polyarthralgia Surgical History H/O esophagogastroduodenoscopy History of prior ablation treatment History of discectomy History of laparoscopy History of tubal ligation History of colonoscopy History of laparoscopic cholecystectomy History of section Family History Father Prostate cancer Diabetes High cholesterol HTN (hypertension) Mother Liver problem Diabetes High cholesterol HTN (hypertension) Family/Other Diabetes High cholesterol HTN (hypertension) Cancer Social History Household Members: Children Household Members Other:: Son Housing: Apartment Alcohol intake: never Comment: pt refuses bed/chair alarm Patient Tobacco Use Status: Former Tobacco user Tobacco use type: Cigarette Years Smoked: 18 e-Cigarette/Vaping Use: Never Used Second Hand Smoke Exposure: No service: No Current occupational status: disabled Sexual orientation: Straight/Heterosexual Gender identity: Female Cognitive needs: No Hearing needs: No Vision needs: No Questionnaire PHQ-9 Over the last 2 weeks, how often have you been bothered by any of the following problems? 1. Little interest or pleasure in doing things: not at all 2. Feeling down, depressed, or hopeless: several days 3. Trouble falling or staying asleep, or sleeping too much: several days 4. Feeling tired or having little energy: several days 5. Poor appetite or overeating: not at all 6. Feeling bad about yourself - or that you are a failure or have let yourself or your family down: not at all 7. Trouble concentrating on things, such as reading the newspaper or watching television: not at all 8. Moving or speaking so slowly that other people could have noticed. Or the opposite - being so fidgety or restless that you have been moving around a lot more than usual: not at all 9. Thoughts that you would be better off or of hurting yourself in some way: not at all Total score: 3 Depression Screening Interpretation: Positive Depression Screening Follow-up: Existing condition, In treatment, Community Mental Health Worker F/U and Follow-up Visit Requested Depression Screening Done: Yes 25636 - PHQ-9 Billing: Yes Source: Developed by Drs. Frank Kay, Diego Galloway and colleagues, with an educational javier from [employer]. Thrive Questionnaire Date Thrive assessed: 12/02/23 ABBY-7 AMB Questionnaire ABBY-7 Date ABBY - 7 assessed: 12/02/23 Source: Developed by Drea Kruger Kurt Kroenke and colleagues, with an educational javier from [employer]. Review of Systems Const All systems reviewed & are unremarkable except as noted in HPI and below ENT Reports dizziness and Reports neck pain Card Denies chest pain at rest, Denies chest pain with activity, Denies edema, Denies irregular heart rhythm, Denies claudication, Denies dyspnea, Denies dyspnea on exertion, Denies orthopnea, Denies paroxysmal nocturnal dyspnea and Denies slow heart rate Resp Denies cough, Denies dyspnea and Denies dyspnea on exertion GI Denies abdominal pain, Denies change in bowel habits, Denies excessive flatus, Denies nausea and Denies vomiting Musc Reports back pain, Reports arthralgias and Reports neck pain Neuro Reports dizziness and Denies lack of coordination Physical exam (Primary Care) Vital Signs: Last Vital Signs BP 122/86 08/28/24 13:41 BMI result Body Mass Index 28.1 Tobacco/Smoking Status: Tobacco use Status Tobacco use date assessed 12/02/23 08/28/24 13:52 Patient Tobacco Use Status Former Tobacco user 08/28/24 13:52 Tobacco use type Cigarette 08/28/24 13:52 e-Cigarette/Vaping Use Never Used 08/28/24 13:52 PHQ-9: PHQ-9 Score PHQ-9: Total score 3 08/28/24 15:57 Depression Screening Interpretation: Positive Depression Screening Follow-up: Existing condition, In treatment, Community Mental Health Worker F/U and Follow-up Visit Requested Thrive Assessment: Date of Thrive Assessment Date Thrive assessed 12/02/23 08/28/24 13:52 Resp Effort & Inspection: normal respiratory effort Auscultation: clear to auscultation bilaterally Cardio Jugular venous distension: no JVD Rate: regular rate Rhythm: regular rhythm Heart sounds: S1 normal heart sound present and S2 normal heart sound present Extrem General: Yes full ROM Coding Level of Care Code Est Pt Level 4 (38871) Complex EM visit Add On G2211 Diagnoses Type 2 diabetes mellitus with hyperglycemia, with long-term current use of insulin E11.65; Z79.4 Diabetes mellitus type: type 2 Diabetes mellitus fpc insulin use: with terminal manager use Diabetes mellitus complication status: with hyperglycemia Bipolar affective disorder, remission status unspecified F31.9 Active/Remission status: remission status unspecified Essential hypertension I10 Mixed hyperlipidemia E78.2 Chronic neck pain M54.2; G89.29 Additional Codes PHQ-9 - 43061 - PHQ-9 Billing: Yes ([id number]) Time Spent (min) 22 Assessment & Plan Assessment & Plan (1) Diabetes mellitus: Code(s): E11.9 - Type 2 diabetes mellitus without complications Category: Medical Qualifiers: Diabetes mellitus type: type 2 Diabetes mellitus terminal manager insulin use: with fpc use Diabetes mellitus complication status: with hyperglycemia Qualified Code(s): E11.65 - Type 2 diabetes mellitus with hyperglycemia; Z79.4 - technician terminal and repeater (current) use of insulin (2) Bipolar disorder: Code(s): F31.9 - Bipolar disorder, unspecified Category: Medical Qualifiers: Active/Remission status: remission status unspecified Qualified Code(s): F31.9 - Bipolar disorder, unspecified (3) Essential hypertension: Code(s): I10 - Essential (primary) hypertension Category: Medical (4) Mixed hyperlipidemia: Code(s): E78.2 - Mixed hyperlipidemia Category: Medical (5) Chronic neck pain: Code(s): M54.2 - Cervicalgia; G89.29 - Other chronic pain Category: Medical Plan - Type 2 Diabetes Mellitus: Continue Humalog; discuss insulin adjustment and consideration of Trulicity once weekly, ensuring patient education on usage and potential side effects. - Drug Allergies: Review allergy list regularly and ensure all new medications prescribed consider these allergies. - Bipolar Disorder: Continue Oxcarbazepine as prescribed by the psychiatrist, monitor for efficacy and any side effects. - Chronic Neck Pain: Continue using Soma as needed; consider physical therapy referral for additional non-pharmacological management. - Hypertension: Monitor blood pressure closely; educate patient on lifestyle modifications for long-term control. - Dyslipidemia: Consider rechallenge or alternative agents if phenofibrate is confirmed as necessary. Patient was informed and verbally consented to the use of an ambient scribe for clinic note documentation during this visit. I discussed the current management regimen for the chronic conditions with the patient, focusing on the importance of maintaining consistent blood sugar control. The risks and benefits of the current medications, including Oxcarbazepine for bipolar disorder and Humalog for diabetes control, were reviewed. We emphasized the critical need to manage drug allergies carefully to avoid adverse reactions. I advised the patient to continue her current dietary changes and provided reassurance regarding her weight loss progress. The importance of consistent follow-up and blood work was discussed, specifically for monitoring her diabetic control and hypertension. Orders: Orders Vitamin D 25-OH Total 4 Months E55.9 - Vitamin D deficiency, unspecified Lipid Panel 4 Months E78.5 - Hyperlipidemia, unspecified Microalbumin, Random (w Creat) 4 Months R80.9 - Proteinuria, unspecified Comprehensive [place]. Panel Fast 4 Months E11.65 - Type 2 diabetes mellitus with hyperglycemia, Z79.4 - technician terminal and repeater (current) use of insulin Vitamin B12 and Folate 4 Months E53.8 - Deficiency of other specified B group vitamins Medications: Refilled fenofibrate 54 mg PO DAILY 90 tabs 1RF 90 days carisoprodol 350 mg PO DAILY PRN 30 tabs 0RF Muscle Spasm 30 days Patient Instructions: - Continue taking Humalog as directed. - Monitor your blood glucose levels regularly. - Maintain dietary changes and continue with lifestyle modifications. - Follow up with blood work in four months to monitor diabetes and hypertension. - Be cautious with all new medications and inform all healthcare providers of drug allergies. - Use Melatonin as needed for sleep disturbances. - Contact the office if you experience any unusual symptoms or reactions from medications.
== END 2024-08-28 14:27 | disposition home or self-care (01) ==
PROVIDERS: PCP Internal Medicine; Visit Provider Internal Medicine
DX: E11.65 Type 2 diabetes mellitus with hyperglycemia (principal); Z79.4 Long term (current) use of insulin; F31.9 Bipolar disorder, unspecified; I10 Essential (primary) hypertension; E78.2 Mixed hyperlipidemia; M54.2 Cervicalgia; G89.29 Other chronic pain

== ENCOUNTER → 2024-08-28 13:36 | Outpatient (BNVA) | payer OTHER, SELFPAY | PROVIDERS: PCP Internal Medicine; Visit Provider Internal Medicine | DX: E11.65 Type 2 diabetes mellitus with hyperglycemia (principal); F31.9 Bipolar disorder, unspecified; E78.5 Hyperlipidemia, unspecified; I10 Essential (primary) hypertension; M54.2 Cervicalgia; G89.29 Other chronic pain; Z79.4 Long term (current) use of insulin | CPT/HCPCS: 96127; 99212 ==

== ENCOUNTER 2024-08-29 13:54 | Outpatient (AMB) | payer OTHER, SELFPAY ==
[2024-08-29 14:06] VITALS: BMI 28.3
--- NOTE | 2024-08-29 14:06 | A.OFFVIS_ITS ---
Vital Signs 08/29/24 14:06 Height 4 ft 11 in Weight 140 lb BMI 28.3 Intake Visit Reasons: Hysterscopy/PMB Consult Sat Act Instructor Required: No Information Interpreted: non-clinical & clinical Accompanied by: Self / Same As Patient Allergies insulin glargine [From Lantus U-100 Insulin] Allergy (Severe, Verified 08/28/24 14:10) paralized nickel Allergy (Severe, Verified 08/28/24 14:10) Rash Penicillins Allergy (Severe, Verified 08/28/24 14:10) Hives acetaminophen [Percocet] Allergy (Intermediate, Verified 08/28/24 14:10) vomiting cyclobenzaprine [CYCLOBENZAPRINE] Allergy (Intermediate, Verified 08/28/24 14:10) HEADACHE,DIZZINESS divalproex sodium [Depakote] Allergy (Intermediate, Verified 08/28/24 14:10) increase liver enzymes methocarbamol [METHOCARBAMOL] Allergy (Intermediate, Verified 08/28/24 14:10) TICS oxycodone [From PERCOCET] Allergy (Intermediate, Verified 08/28/24 14:10) VOMITING insulin degludec [From Tresiba FlexTouch U-100] Adverse Reaction (Severe, Verified 08/28/24 14:10) loss of balance, body aches liraglutide [From Victoza] Adverse Reaction (Severe, Verified 08/28/24 14:10) hypoglycemia lisinopril Adverse Reaction (Severe, Verified 08/28/24 14:10) Dizziness risperidone [RISPERIDONE] Adverse Reaction (Severe, Verified 08/28/24 14:10) CHEST PAIN baclofen Adverse Reaction (Intermediate, Verified 08/28/24 14:10) Palpitations canagliflozin [Invokana] Adverse Reaction (Intermediate, Verified 08/28/24 14:10) confusion dulaglutide [Trulicity] Adverse Reaction (Intermediate, Verified 08/28/24 14:10) abdominal bloating, numbness, myalgia Narcotics Allergy (Mild, Uncoded 08/28/24 14:10) dizzy, sick Post menopausal: Yes HPI Comments Details: The patient presenting referred from Shonda Conklin CNM with history of 3 recurrent episodes of vaginal bleeding. Pelvic exam done recently was within normal. Last co testing in 07/11 was negative Pelvic ultrasound done on 07/11/2024, report not available yet Unofficial reading= endometrial stripe 3.3 mm PFSH Medical History Encounter for well woman exam with routine gynecological exam Diabetes mellitus Physical exam Vaginal burning Vaginal itching Basilar migraine Hyperlipidemia LDL goal <70 Acute vaginitis Encounter for annual routine gynecological examination Hospital discharge follow-up Shortness of breath COVID-19 Dysuria Vaginal irritation Herpes simplex virus (HSV) infection Intertrigo Diabetes mellitus Migraine with aura Hypertension Renal calculi Chest pain Mixed hyperlipidemia Fibromyalgia Chronic neck pain Nickel allergy Nickel dermatitis Polyarthralgia Surgical History H/O esophagogastroduodenoscopy History of prior ablation treatment History of discectomy History of laparoscopy History of tubal ligation History of colonoscopy History of laparoscopic cholecystectomy History of section Family History Father Prostate cancer Diabetes High cholesterol HTN (hypertension) Mother Liver problem Diabetes High cholesterol HTN (hypertension) Family/Other Diabetes High cholesterol HTN (hypertension) Cancer Social History Household Members: Children Household Members Other:: Son Housing: Apartment Alcohol intake: never Comment: pt refuses bed/chair alarm Patient Tobacco Use Status: Former Tobacco user Tobacco use type: Cigarette Years Smoked: 18 e-Cigarette/Vaping Use: Never Used Second Hand Smoke Exposure: No service: No Current occupational status: disabled Sexual orientation: Straight/Heterosexual Gender identity: Female Cognitive needs: No Hearing needs: No Vision needs: No Review of Systems Const All systems reviewed & are unremarkable except as noted in HPI and below Reports as per HPI and Reports no additional complaints GI Reports no additional complaints Reports no additional complaints Physical Exam Vital Signs: BMI result Body Mass Index 28.3 Assessment & Plan Assessment & Plan (1) PMB (postmenopausal bleeding): Comment: Recurrent episodes h/o ablation, hysteroscopy in 03 was uterine perforation Code(s): N95.0 - Postmenopausal bleeding Category: Medical Plan: Discussed with the patient the differential diagnosis of post menopausal bleeding including but not limited to, endometrial hyperplasia, cancer, polyps and other causes; Since the patient has been having recurrent episodes of vaginal bleeding although endometrial stripe is less than 5 mm, recommended to the patient that the next step is an endometrial sampling via hysteroscopy D&C possible polypectomy versus endometrial biopsy to r/o endometrial pathology including hyperplasia or cancer. All the pros and cons risks and benefits of each approach were discussed with the patient, recommended to proceed with office endometrial biopsy given the patient history of endometrial ablation with uterine perforation. The patient would like to seek a 2nd opinion. Explained to the patient the delaying endometrial sampling can delayed the diagnosis and may affect negatively the outcome, the patient understands. Will refer to [facility] for a 2nd opinion and further management. Instructed the patient to call our office back in case a referral/2nd opinion appointment is not scheduled, missed or canceled so that we will assist on rescheduling another appointment, the patient verbalized understanding agreed with the plan. This note was generated with a voice recognition program. Some errors may have been overlooked during the review of this note. Sometimes these errors may affect the content or meaning of a given sentence. Coding Level of Care Code Est Pt Level 3 (55435) Diagnoses PMB (postmenopausal bleeding) N95.0
== END 2024-08-29 15:01 | disposition home or self-care (01) ==
LOC: HO.HWS 13:54
PROVIDERS: PCP Internal Medicine; Visit Provider Obstetrics & Gynecology
DX: N95.0 Postmenopausal bleeding (principal)
CPT/HCPCS: 99213

== ENCOUNTER → 2024-08-29 13:54 | Outpatient (BNVA) | payer OTHER, SELFPAY | PROVIDERS: PCP Internal Medicine; Visit Provider Obstetrics & Gynecology | DX: N95.0 Postmenopausal bleeding (principal) | CPT/HCPCS: 99212 ==

== ENCOUNTER 2024-08-31 10:06 | Outpatient (AMB) | payer OTHER, SELFPAY ==
--- NOTE | 2024-08-31 10:11 | A.OFFVIS_ITS ---
Vital Signs 08/31/24 10:16 Height 4 ft 11 in Weight 138 lb 14.259 oz BMI 28.0 BP 120/76 Blood Pressure Location Rt brachial Position Sitting Pulse 103 H Pulse Source Pulse Oximeter Intake Visit Reasons: DM Intake Note: Patient presents today for to for Type 2 Diabetes Mellitus: Last Diabetic eye exam was on: DUE Last Podiatry exam was on: Does not see a Funeral Prearrangement Counselor Most recent HbA1c: 13.5%, 08/03/2024 Random Glucose- 421 mg/dL, Today Associate Drafter Required: No Accompanied by: Self / Same As Patient Allergies insulin glargine [From Lantus U-100 Insulin] Allergy (Severe, Verified 08/31/24 10:21) paralized nickel Allergy (Severe, Verified 08/31/24 10:21) Rash Penicillins Allergy (Severe, Verified 08/31/24 10:21) Hives acetaminophen [Percocet] Allergy (Intermediate, Verified 08/31/24 10:21) vomiting cyclobenzaprine [CYCLOBENZAPRINE] Allergy (Intermediate, Verified 08/31/24 10:21) HEADACHE,DIZZINESS divalproex sodium [Depakote] Allergy (Intermediate, Verified 08/31/24 10:21) increase liver enzymes methocarbamol [METHOCARBAMOL] Allergy (Intermediate, Verified 08/31/24 10:21) TICS oxycodone [From PERCOCET] Allergy (Intermediate, Verified 08/31/24 10:21) VOMITING insulin degludec [From Tresiba FlexTouch U-100] Adverse Reaction (Severe, Verified 08/31/24 10:21) loss of balance, body aches liraglutide [From Victoza] Adverse Reaction (Severe, Verified 08/31/24 10:21) hypoglycemia lisinopril Adverse Reaction (Severe, Verified 08/31/24 10:21) Dizziness risperidone [RISPERIDONE] Adverse Reaction (Severe, Verified 08/31/24 10:21) CHEST PAIN baclofen Adverse Reaction (Intermediate, Verified 08/31/24 10:21) Palpitations canagliflozin [Invokana] Adverse Reaction (Intermediate, Verified 08/31/24 10:21) confusion dulaglutide [Trulicity] Adverse Reaction (Intermediate, Verified 08/31/24 10:21) abdominal bloating, numbness, myalgia Narcotics Allergy (Mild, Uncoded 08/31/24 10:21) dizzy, sick HPI Comments Details: This is a 63-year-old female with type 2 diabetes presenting for follow up Med Hx: bipolar disorder, cirrhosis, diabetes mellitus type 2 on long-term current use of insulin, hyperlipidemia, polyarthralgia 07/2024 A1C 13.5%. She is checking glucose at home -majority of readings in 200s-300s No CGM: sensor was causing bleeding. Current prescribed medications: Humalog 22 TID (compliant), compliant with Trulicity 1.5 weekly. Toujeo 10 qhs (never started). Did not like lantus. Reports she has been better with diet and blood glucose has improved from highs of 600s to 200s. No hypoglycemia. Has lost 5 pounds since last visit Past medications: actos (says gave her hypoglycemia), glipizide (says gave her hypoglycemia), Victoza (hypoglycemia), Tresiba (balance issues), Lantus (muscle weakness), SGLT-vaginal rash Micro/Macrovasular complications: neuropathy Eye exam due Podiatry-declines ROS CONSTITUTIONAL: Denies weight loss, fever and chills. HEENT: Denies changes in vision and hearing. RESPIRATORY: Denies SOB and cough. CV: Denies palpitations and CP GI: Denies abdominal pain, nausea, vomiting and diarrhea. Endorses chronic bloating : Denies dysuria and urinary frequency. MSK: Denies new myalgia and joint pain. SKIN: Denies rash and pruritus. NEUROLOGICAL: Denies headache PSYCHIATRIC: Denies recent changes in mood. PHYSICAL EXAM: GENERAL: Alert and oriented x 3. NAD EYES: EOMI. Anicteric. HENT: Moist mucous membranes. No scleral icterus. No cervical lymphadenopathy. LUNGS: Clear to auscultation bilaterally. CARDIOVASCULAR: Regular rate and rhythm. No murmur. No JVD. ABDOMEN: Soft, obese, non-tender +bs EXTREMITIES: No edema. Non-tender. SKIN: No rashes or lesions. Warm. NEUROLOGIC: No focal neurological deficits. CN II-XII grossly intact PSYCHIATRIC: Cooperative. Appropriate mood and affect [facility] Medical History Encounter for well woman exam with routine gynecological exam Diabetes mellitus Physical exam Vaginal burning Vaginal itching Basilar migraine Hyperlipidemia LDL goal <70 Acute vaginitis Encounter for annual routine gynecological examination Hospital discharge follow-up Shortness of breath COVID-19 Dysuria Vaginal irritation Herpes simplex virus (HSV) infection Intertrigo Diabetes mellitus Migraine with aura Hypertension Renal calculi Chest pain Mixed hyperlipidemia Fibromyalgia Chronic neck pain Nickel allergy Nickel dermatitis Polyarthralgia Surgical History H/O esophagogastroduodenoscopy History of prior ablation treatment History of discectomy History of laparoscopy History of tubal ligation History of colonoscopy History of laparoscopic cholecystectomy History of section Family History Father Prostate cancer Diabetes High cholesterol HTN (hypertension) Mother Liver problem Diabetes High cholesterol HTN (hypertension) Family/Other Diabetes High cholesterol HTN (hypertension) Cancer Social History Household Members: Children Household Members Other:: Son Housing: Apartment Alcohol intake: never Comment: pt refuses bed/chair alarm Patient Tobacco Use Status: Former Tobacco user Tobacco use type: Cigarette Years Smoked: 18 e-Cigarette/Vaping Use: Never Used Second Hand Smoke Exposure: No service: No Current occupational status: disabled Sexual orientation: Straight/Heterosexual Gender identity: Female Cognitive needs: No Hearing needs: No Vision needs: No Physical Exam Vital Signs: Last Vital Signs Pulse 103 H 08/31/24 10:16 BP 120/76 08/31/24 10:16 BMI result Body Mass Index 28.0 Assessment & Plan Assessment & Plan (1) Long-term current use of insulin for diabetes mellitus: Code(s): Z79.4 - MCC (current) use of insulin; E11.9 - Type 2 diabetes mellitus without complications Category: Medical Plan: Diabetes with hyperglycemia Refuses long acting insulin. Declines increase trulicity She will return in 2 months for follow up-due for A1C at that time Coding Level of Care Code Est Pt Level 4 (51307) Diagnoses Long-term current use of insulin for diabetes mellitus Z79.4; E11.9
[2024-08-31 10:16] VITALS: BP 120/76; PULSE 103; BMI 28.0
[2024-08-31 10:27] LABS: Glucose, Whole Blood 421 mg/dL (60-115)
== END 2024-08-31 10:39 | disposition home or self-care (01) ==
PROVIDERS: PCP Internal Medicine; Visit Provider Internal Medicine
DX: Z79.4 Long term (current) use of insulin (principal); E11.9 Type 2 diabetes mellitus without complications

== ENCOUNTER → 2024-08-31 10:06 | Outpatient (BNVA) | payer OTHER, SELFPAY | PROVIDERS: PCP Internal Medicine; Visit Provider Internal Medicine | DX: E11.9 Type 2 diabetes mellitus without complications (principal); Z79.4 Long term (current) use of insulin | CPT/HCPCS: 82947; 99212 ==

== ENCOUNTER → 2024-09-05 08:12 | Outpatient (REF) | payer OTHER, SELFPAY | LOC: HO.NUCMED 08:12 | PROVIDERS: PCP Internal Medicine; Visit Provider Nurse Practitioner | DX: R11.2 Nausea with vomiting, unspecified (principal) | CPT/HCPCS: 78264; A9541 ==

== ENCOUNTER 2024-09-05 14:53 | Outpatient (AMB) | payer OTHER, SELFPAY ==
--- NOTE | 2024-09-05 14:54 | A.OFFVIS_ITS ---
Intake Visit Reasons: ultrasound results Allergies insulin glargine [From Lantus U-100 Insulin] Allergy (Severe, Verified 08/31/24 10:21) paralized nickel Allergy (Severe, Verified 08/31/24 10:21) Rash Penicillins Allergy (Severe, Verified 08/31/24 10:21) Hives acetaminophen [Percocet] Allergy (Intermediate, Verified 08/31/24 10:21) vomiting cyclobenzaprine [CYCLOBENZAPRINE] Allergy (Intermediate, Verified 08/31/24 10:21) HEADACHE,DIZZINESS divalproex sodium [Depakote] Allergy (Intermediate, Verified 08/31/24 10:21) increase liver enzymes methocarbamol [METHOCARBAMOL] Allergy (Intermediate, Verified 08/31/24 10:21) TICS oxycodone [From PERCOCET] Allergy (Intermediate, Verified 08/31/24 10:21) VOMITING insulin degludec [From Tresiba FlexTouch U-100] Adverse Reaction (Severe, Verified 08/31/24 10:21) loss of balance, body aches liraglutide [From Victoza] Adverse Reaction (Severe, Verified 08/31/24 10:21) hypoglycemia lisinopril Adverse Reaction (Severe, Verified 08/31/24 10:21) Dizziness risperidone [RISPERIDONE] Adverse Reaction (Severe, Verified 08/31/24 10:21) CHEST PAIN baclofen Adverse Reaction (Intermediate, Verified 08/31/24 10:21) Palpitations canagliflozin [Invokana] Adverse Reaction (Intermediate, Verified 08/31/24 10:21) confusion dulaglutide [Trulicity] Adverse Reaction (Intermediate, Verified 08/31/24 10:21) abdominal bloating, numbness, myalgia Narcotics Allergy (Mild, Uncoded 08/31/24 10:21) dizzy, sick HPI Comments Details: The patient is scheduled tele health visit for pelvic ultrasound follow-up. Pelvic ultrasound showed the following: Uterus: The uterus is anteverted and measures 6 x 2 x 3 cm. Volume is 3 cc. The double wall endometrial thickness is 3 mm. The uterus is smooth in contour and has normal myometrial echogenicity. No visible fibroid. Adnexa: Both ovaries are visualized. There is normal color flow to the adnexa. There is no ovarian torsion. There is no pelvic ascites or fluid collection. . Right ovary measures 3 x 2 x 2 cm. Volume is 4 cc. Left ovary measures 2 x 2 x 2 cm. Volume is 3 cc. US/US pelvic and transvaginal IMPRESSION: Normal endometrial stripe. Recommend direct inspection. Limited exam demonstrated no gross abnormality. [facility] Medical History Encounter for well woman exam with routine gynecological exam Diabetes mellitus Physical exam Vaginal burning Vaginal itching Basilar migraine Hyperlipidemia LDL goal <70 Acute vaginitis Encounter for annual routine gynecological examination Hospital discharge follow-up Shortness of breath COVID-19 Dysuria Vaginal irritation Herpes simplex virus (HSV) infection Intertrigo Diabetes mellitus Migraine with aura Hypertension Renal calculi Chest pain Mixed hyperlipidemia Fibromyalgia Chronic neck pain Nickel allergy Nickel dermatitis Polyarthralgia Surgical History H/O esophagogastroduodenoscopy History of prior ablation treatment History of discectomy History of laparoscopy History of tubal ligation History of colonoscopy History of laparoscopic cholecystectomy History of section Family History Father Prostate cancer Diabetes High cholesterol HTN (hypertension) Mother Liver problem Diabetes High cholesterol HTN (hypertension) Family/Other Diabetes High cholesterol HTN (hypertension) Cancer Social History Household Members: Children Household Members Other:: Son Housing: Apartment Alcohol intake: never Comment: pt refuses bed/chair alarm Patient Tobacco Use Status: Former Tobacco user Tobacco use type: Cigarette Years Smoked: 18 e-Cigarette/Vaping Use: Never Used Second Hand Smoke Exposure: No service: No Current occupational status: disabled Sexual orientation: Straight/Heterosexual Gender identity: Female Cognitive needs: No Hearing needs: No Vision needs: No Review of Systems Const All systems reviewed & are unremarkable except as noted in HPI and below Reports as per HPI and Reports no additional complaints GI Reports no additional complaints Reports no additional complaints Telehealth Telehealth Telehealth Platform: Telephone Location of provider rendering services: practice address Location of patient: address on file Patient Identification confirmed using: Name, : Yes Telehealth method: voice only Patient verbally consented to treatment: Yes Patient verbally consented to billing insurance company: Yes Patient informed of any privacy concerns related to visit: Yes Assessment & Plan Assessment & Plan (1) PMB (postmenopausal bleeding): Comment: Recurrent episodes h/o ablation, hysteroscopy in 03 with uterine perforation Code(s): N95.0 - Postmenopausal bleeding Category: Medical Plan: Discussed with the patient the above finding of ultrasound a 3 mm endometrial stripe with no other abnormalities. Since the patient has recurrent postmenopausal episodes of vaginal bleeding in spite of endometrial stripe of 3 mm, recommended endometrial sampling to rule out endometrial pathology including endometrial hyperplasia and/or malignancy. The patient requested a 2nd opinion, was refer to [facility], no appointment scheduled yet. Instructed the patient to call our office back in case a referral appointment is not scheduled, missed or canceled so that we will assist on rescheduling another appointment, the patient verbalized understanding agreed with the plan. I spent a total of 3 minutes talking to the patient via phone . Coding Level of Care Code Tele Est Pt Level 1 (31903) Diagnoses PMB (postmenopausal bleeding) N95.0
== END 2024-09-05 15:03 | disposition home or self-care (01) ==
PROVIDERS: PCP Internal Medicine; Visit Provider Obstetrics & Gynecology
DX: N95.0 Postmenopausal bleeding (principal)
CPT/HCPCS: 99211

== ENCOUNTER 2024-09-11 10:51 | Outpatient (REF) | payer OTHER, SELFPAY | END 2024-09-11 10:52 | disposition home or self-care (01) | LOC: HO.MAMMO 10:51 | PROVIDERS: PCP Internal Medicine; Visit Provider Internal Medicine | DX: Z12.31 Encounter for screening mammogram for malignant neoplasm of breast (principal) | CPT/HCPCS: 77063; 77067 ==

== ENCOUNTER → 2024-09-11 11:00 | Outpatient (BNV) | payer OTHER, SELFPAY | PROVIDERS: PCP Internal Medicine; Visit Provider Internal Medicine | DX: Z12.31 Encounter for screening mammogram for malignant neoplasm of breast (principal) | CPT/HCPCS: 77063; 77067 ==

== ENCOUNTER 2024-09-27 10:45 | Emergency (ER) | payer OTHER, SELFPAY ==
--- NOTE | ~2024-09-27 | XR_ITS ---
EXAMINATION: XR HIP 2 OR MORE VIEWS RIGHT WITH PELVIS HISTORY: R hip pain s/p fall COMPARISON: There are no prior studies for comparison. FINDINGS: A single AP view of the pelvis and two views of the right hip are submitted. Osseous mineralization is normal. There is no fracture or dislocation. The joint space is maintained. The soft tissues are unremarkable. XR/XR hip RT min 2V w/wo pel IMPRESSION: No evidence of fracture of the right hip or pelvis. Electronically signed by: Frank Torre MD 09/27/2024 12:35 PM [facility]
--- NOTE | ~2024-09-27 | XR_ITS ---
EXAMINATION: XR LUMBAR SPINE 2-3 VIEWS HISTORY: low back pain COMPARISON: Comparison is made with the prior examination dated 04/18/2024. FINDINGS: AP, lateral, and coned down views of the lumbar spine are submitted. Osseous mineralization is normal. Five nonrib-bearing lumbar vertebral bodies are identified, maintaining normal height and alignment without evidence of fracture or spondylolisthesis. Minimal anterior endplate spurring is noted. The intervertebral disc spaces are preserved. The posterior elements are intact. There is calcification of the abdominal aorta. XR/XR lumbar spine 2-3V IMPRESSION: Minimal degenerative changes. No evidence of fracture of the lumbar spine. Electronically signed by: Frank Torre MD 09/27/2024 12:32 PM [facility]
[2024-09-27 11:00] VITALS: BP 155/89; PULSE 99; RESP 20; TEMP 36; O2SAT 100; BMI 28.1
--- NOTE | 2024-09-27 12:50 | ED.GENADULT ---
HPI - General Adult General Chief complaint: Extremity Injury, Lower Stated complaint: R Leg Pain Fall Time Seen by Provider: 09/27/24 12:49 Source: patient, RN notes reviewed and old records reviewed Mode of arrival: ambulatory Limitations: no limitations History of Present Illness ED Provider: Theron HPI narrative: Patient is a 64-year-old female with history of DM, DJD of lumbar spine, thoracic spondylosis, cirrhosis, HTN, TIA, fibromyalgia presenting to the emergency department with complaint of right lower back pain radiating down right leg for the past week. States that she was getting out of her son's truck when she slipped on the running board, causing her to fall into the car parked next to them. She denies head strike, loss of consciousness, anticoagulation. States that she did not notice the pain right away and was able to walk easily after the fall. That night, the pain began to her right lower back and has since begun radiating down her right leg to her knee. She states that she has tried Tylenol, ibuprofen, lidocaine patches all without relief. Denies saddle anesthesia or bowel or bladder incontinence. Denies fevers. Denies weakness, numbness, tingling to lower extremities. MD complaint: back pain Onset (ago): week(s) Severity: severe Quality: burning Treatments prior to arrival: NSAID and other Related Data Home Medications ?Medication ?Instructions ?Recorded ?Confirmed diazepam 10 mg tablet 10 mg PO BID PRN Muscle Spasm 09/03/20 08/28/24 alpha lipoic acid 600 mg capsule 600 mg PO BIDAC 03/01/22 08/28/24 cyanocobalamin (vitamin B-12) 1,000 mcg PO DAILY 03/01/22 08/28/24 1,000 mcg tablet vitamin B complex 1 tab PO DAILY 03/01/22 08/28/24 melatonin ER 10 mg-pyridoxine HCl 1 tab PO BEDTIME PRN 04/29/23 08/28/24 (B6) 10 mg tab, immed-extend release oxcarbazepine 150 mg tablet 150 mg PO DAILY 02/17/24 08/28/24 insulin lispro 200 unit/mL (3 mL) 22 unit subcut TID 04/06/24 08/28/24 subcutaneous pen (Humalog KwikPen U-200 Insulin) oxcarbazepine 600 mg tablet 600 mg PO DAILY 05/30/24 08/28/24 melatonin 10 mg tablet,extended 5 mg PO BEDTIME PRN 07/19/24 08/28/24 release Previous Rx's ?Medication ?Instructions ?Recorded blood-glucose meter #1 ea 07/31/20 ibuprofen 600 mg tablet 600 mg PO TID PRN pain 90 days 07/30/22 #270 tabs albuterol sulfate 90 mcg/actuation 1 - 2 puff inhalation Q4-6H PRN 03/11/23 aerosol inhaler for dyspnea #8.5 grams blood pressure monitor #1 ea 03/11/23 blood-glucose sensor (Dexcom G7 #1 ea 09/07/23 Sensor device) mupirocin 2 % topical ointment 1 appl topical BID #15 grams 02/03/24 flash glucose sensor (FreeStyle #1 ea 03/14/24 Avi 14 Day Sensor kit) pen needle, diabetic 31 gauge x #50 ea 03/14/24 3/16 pen needle, diabetic 31 gauge x #100 ea 03/14/24 5/16 (Advocate Pen Needle) pen needle, diabetic, safety 30 #100 ea 03/14/24 gauge x 5/16 (Assure ID Pen Needle) FreeStyle Lancets 28 gauge #300 ea 05/25/24 (lancets) FreeStyle Lite Meter #1 ea 05/25/24 (blood-glucose meter) FreeStyle Lite Strips (blood sugar #300 ea 05/25/24 diagnostic) Trulicity 1.5 mg/0.5 mL 1.5 mg (0.5 mL) subcut QWEEK #6 mL 05/25/24 subcutaneous pen injector (dulaglutide) clotrimazole-betamethasone 1 1 appl topical BID itching 7 days 07/07/24 %-0.05 % topical cream #45 grams cholecalciferol (vitamin D3) 25 25 mcg PO DAILY 90 days #90 caps 08/07/24 mcg (1,000 unit) capsule erythromycin 5 mg/gram (0.5 %) eye 0.5 inch ophthalmic (eye) BID 5 08/09/24 ointment days #3.5 grams carisoprodol 350 mg tablet 350 mg PO DAILY PRN Muscle Spasm 08/28/24 30 days #30 tabs fenofibrate 54 mg tablet 54 mg PO DAILY 90 days #90 tabs 08/28/24 lidocaine 5 % topical patch 1 patch topical DAILY #15 ea 09/27/24 prednisone 20 mg tablet 40 mg (2 x 20 mg) PO DAILY #10 tabs 09/27/24 tizanidine 2 mg capsule 2 mg PO Q8H PRN muscle spasticity 09/27/24 #10 caps Allergies Allergy/AdvReac Type Severity Reaction Status Date / Time insulin glargine Allergy Severe paralized Verified 09/27/24 11:03 [From Lantus U-100 Insulin] nickel Allergy Severe Rash Verified 09/27/24 11:03 Penicillins Allergy Severe Hives Verified 09/27/24 11:03 acetaminophen [Percocet] Allergy Intermediate vomiting Verified 09/27/24 11:03 cyclobenzaprine Allergy Intermediate HEADACHE,DI Verified 09/27/24 11:03 [CYCLOBENZAPRINE] ZZINESS divalproex sodium [Depakote] Allergy Intermediate increase Verified 09/27/24 11:03 liver enzymes methocarbamol [METHOCARBAMOL] Allergy Intermediate TICS Verified 09/27/24 11:03 oxycodone [From PERCOCET] Allergy Intermediate VOMITING Verified 09/27/24 11:03 insulin degludec AdvReac Severe loss of Verified 09/27/24 11:03 [From Tresiba FlexTouch balance, U-100] body aches liraglutide [From Victoza] AdvReac Severe hypoglycemi Verified 09/27/24 11:03 a lisinopril AdvReac Severe Dizziness Verified 09/27/24 11:03 risperidone [RISPERIDONE] AdvReac Severe CHEST PAIN Verified 09/27/24 11:03 baclofen AdvReac Intermediate Palpitation Verified 09/27/24 11:03 s canagliflozin [Invokana] AdvReac Intermediate confusion Verified 09/27/24 11:03 dulaglutide [Trulicity] AdvReac Intermediate abdominal Verified 09/27/24 11:03 bloating, numbness, myalgia Narcotics Allergy Mild dizzy, sick Uncoded 08/31/24 10:21 Review of Systems Review of Systems: As per HPI Yes all other systems are reviewed and are negative Constitutional: Constitutional: Reports as per HPI [facility] Past Medical History Medical History Encounter for well woman exam with routine gynecological exam Diabetes mellitus Physical exam Vaginal burning Vaginal itching Basilar migraine Hyperlipidemia LDL goal <70 Acute vaginitis Encounter for annual routine gynecological examination Hospital discharge follow-up Shortness of breath COVID-19 Dysuria Vaginal irritation Herpes simplex virus (HSV) infection Intertrigo Diabetes mellitus Migraine with aura Hypertension Renal calculi Chest pain Mixed hyperlipidemia Fibromyalgia Chronic neck pain Nickel allergy Nickel dermatitis Polyarthralgia Surgical History H/O esophagogastroduodenoscopy History of prior ablation treatment History of discectomy History of laparoscopy History of tubal ligation History of colonoscopy History of laparoscopic cholecystectomy History of section Family History Family History Father Prostate cancer Diabetes High cholesterol HTN (hypertension) Mother Liver problem Diabetes High cholesterol HTN (hypertension) Family/Other Diabetes High cholesterol HTN (hypertension) Cancer Social History Social History Household Members: Children Household Members Other:: Son Housing: Apartment Alcohol intake: never Comment: pt refuses bed/chair alarm Patient Tobacco Use Status: Former Tobacco user Tobacco use type: Cigarette Years Smoked: 18 e-Cigarette/Vaping Use: Never Used Second Hand Smoke Exposure: No Advance Directives: No Advance Directives Information Provided: Yes Do you have a plan to hurt others: No Plan service: No Current occupational status: disabled Sexual orientation: Straight/Heterosexual Gender identity: Female Cognitive needs: No Hearing needs: No Vision needs: No Physical Exam ED Vital Signs: Vital Signs - 24 hr 09/27/24 11:00 Temperature 96.8 F Pulse Rate 99 Respiratory Rate 20 Blood Pressure 155/89 H Pulse Oximetry 100 Oxygen Delivery Method Room Air BMI result Body Mass Index 28.1 Vital signs have been reviewed and appear to be correct. Blood pressure elevated. Heart rate normal. Respiratory rate normal. Temperature normal. Oxygen saturation normal. Const General: cooperative, healthy appearing and no acute distress Orientation/consciousness: oriented to person, oriented to place, oriented to time and patient oriented x3 Limitations: no limitations HENMT Head: Yes normocephalic and Yes atraumatic Ears: external ears normal General nose exam: Normal external nose present Face and sinus: Yes face symmetric Mouth: oropharynx normal and moist mucous membranes Throat: Yes uvula midline Eyes Pupils: Equal, round and reactive pupils present Neck Neck: Yes normal visual inspection, Yes no meningeal signs and Yes supple Resp Effort & Inspection: normal respiratory effort and able to speak in complete sentences Auscultation: clear to auscultation bilaterally Cardio Rate: regular rate Rhythm: regular rhythm Heart sounds: S1 normal heart sound present and S2 normal heart sound present GI Palpation (GI): Soft to palpation and nontender Auscultation: normoactive bowel sounds General: Yes no CVA tenderness Back/Spine/Pelvis Back: no CVA tenderness Thoracic/Lumbar Spine: thoracic and lumbar spine normal to inspection, thoraco-lumbar ROM normal, straight leg raise negative bilaterally, pain with thoraco-lumbar ROM, No thoracic spinal tenderness and lumbar spinal tenderness at L3, at L4 and at L5 Pelvis: no pain with anterior-posterior compression and no pain with lateral compression Skin General skin exam: elasticity normal and turgor normal Neuro General: oriented to person, oriented to place, oriented to time, patient oriented x3, gait normal, tone normal, moves all extremities, Normal light touch and pain sensation, no meningeal signs, no focal motor deficits and CN's II-XI intact bilaterally Cranial nerves: Yes Equal, round and reactive pupils present Cognition (Neuro): normal cognition Motor exam (neuro): 5/5 motor strength present throughout, Normal motor muscle tone present throughout and Motor abnormalities not present Extrem General: Yes full ROM, Yes no pedal edema and Yes no calf tenderness Psych Mental Status: mental status grossly normal Affect: normal affect Thought process: Normal thought process present Medical Decision Making Medical Decision Making MDM Narrative: Patient is a 64-year-old female with history of DM, DJD of lumbar spine, thoracic spondylosis, cirrhosis, HTN, TIA, fibromyalgia presenting to the emergency department with complaint of right lower back pain radiating down right leg for the past week. On exam patient is awake, A+Ox3, VS WNL, afebrile, normal neurological exam without focal deficits, physical exam findings as above. Given reported symptoms and physical exam findings, initial differential includes but is not limited to lumbar strain, lumbar radiculopathy, degenerative disc disease, disc herniation, spinal stenosis, spondylosis. Less likely vertebral fracture. Do not suspect malignancy/mass, SEA, cauda equina/cord compression. X-ray hip and lumbar spine notable for minimal degenerative changes, no acute fractures. My interpretation is in agreement with the radiologist's interpretation. Results discussed with patient and all questions answered. Will send prescriptions for short course of prednisone, tizanidine as patient has multiple allergies, and lidocaine patches. Instructed patient to follow up PCP as needed. Return precautions discussed at bedside. Patient verbalized understanding of and agreement with plan. Differential Diagnosis Differential Diagnoses: The differential diagnosis associated with the presentation includes As per MDM Independent Interpretation I performed an independent interpretation of an: Plain X-Ray Interpretation: X-ray hip and lumbar spine notable for minimal degenerative changes, no acute fractures. Radiology Impression Discussion of test interpretation with radiology: I have reviewed the radiologist's reading. Radiologist Impression: XR/XR hip RT min 2V w/wo pel IMPRESSION: No evidence of fracture of the right hip or pelvis. XR/XR lumbar spine 2-3V IMPRESSION: Minimal degenerative changes. No evidence of fracture of the lumbar spine. External Record Review External record reviewed: Inpatient record, Office record and Outpatient record Prescription Management I considered prescription management with: Pain Medication and Other Discharge Plan Discharge Clinical Impression: Lumbar radiculopathy Patient Disposition: Home, Self-Care Instructions: Lumbar Radiculopathy (ED), Back Pain (ED) Additional Instructions: You were evaluated in the emergency department today for back pain. Your evaluation did not show signs of medical conditions requiring emergent intervention at this time. We recommended that you use ibuprofen or Tylenol per package directions every 6 hours as needed for pain. If necessary, you can alternate these medications so that you take one medication every 3 hours. For instance, at noon take ibuprofen, then at 3:00 p.m. take Tylenol, then at 6:00 p.m. take ibuprofen. You are being prescribed a short course of steroids called prednisone to decrease inflammation. You have been prescribed a muscle relaxer which you may take every 8 hours as needed for spasms. You have been prescribed 5% topical lidocaine patches which you can wear for up to 12 hours in a 24 hour period. Do not apply heat directly over the patches. Please schedule an appointment for follow-up with your primary care physician this week for further evaluation of your symptoms. Return to the emergency department if you experience worsening back pain, difficulty walking, fevers, numbness, tingling, incontinence, groin numbness or tingling, or any other concerning symptoms. Prescriptions: New lidocaine 5 % adhesive patch,medicated 1 patch topical DAILY Qty: 15 0RF Rx Instructions: leave on most painful area for up to 12 hrs tizanidine 2 mg capsule 2 mg PO Q8H PRN (Reason: muscle spasticity) Qty: 10 0RF prednisone 20 mg tablet 40 mg PO DAILY Qty: 10 0RF No Action (DME) blood-glucose meter Kit See Rx Instructions .ROUTE .MEDSUPPLY Qty: 1 0RF Rx Instructions: As directed ibuprofen 600 mg tablet 600 mg PO TID PRN (Reason: pain) 90 Days Qty: 270 3RF albuterol sulfate 90 mcg/actuation HFA aerosol inhaler 1 - 2 puff inhalation Q4-6H PRN (Reason: for dyspnea) Qty: 8.5 2RF (DME) blood pressure monitor Kit See Rx Instructions .ROUTE .MEDSUPPLY Qty: 1 0RF Rx Instructions: As directed (DME) Dexcom G7 Sensor Device See Rx Instructions .Route Qty: 1 11RF Rx Instructions: As directed (DME) pen needle, diabetic 31 gauge x 3/16 needle See Rx Instructions topical QID Qty: 50 11RF Rx Instructions: As directed (DME) FreeStyle Avi 14 Day Sensor Kit See Rx Instructions .Route Qty: 1 11RF Rx Instructions: As directed (DME) pen needle, diabetic [Advocate Pen Needle] 31 gauge x 5/16 needle See Rx Instructions .Route Qty: 100 3RF Rx Instructions: Use 1 pen needle once a day (DME) Assure ID Pen Needle 30 gauge x 5/16 needle See Rx Instructions .ROUTE .MEDSUPPLY Qty: 100 6RF Rx Instructions: Use 1 pen needle once a day cholecalciferol (vitamin D3) 25 mcg (1,000 unit) capsule 25 mcg PO DAILY 90 Days Qty: 90 1RF cyanocobalamin (vitamin B-12) 1,000 mcg Tablet 1,000 mcg PO DAILY vitamin B complex Tablet 1 tab PO DAILY alpha lipoic acid 600 mg Capsule 600 mg PO BIDAC mupirocin 2 % ointment 1 appl topical BID Qty: 15 0RF erythromycin 5 mg/gram (0.5 %) ointment 0.5 inch ophthalmic (eye) BID 5 Days Qty: 3.5 0RF diazepam 10 mg tablet 10 mg PO BID PRN (Reason: Muscle Spasm) melatonin-pyridoxine HCl (B6) 10-10 mg tablet, IR and ER, biphasic 1 tab PO BEDTIME PRN Humalog KwikPen Insulin 200 unit/mL (3 mL) insulin pen 22 unit subcut TID Trulicity 1.5 mg/0.5 mL pen injector 1.5 mg subcut QWEEK Qty: 6 3RF (DME) blood-glucose meter [FreeStyle Lite Meter] Kit See Rx Instructions .Route Qty: 1 0RF Rx Instructions: test 3 times per day (DME) FreeStyle Lite Strips Strip See Rx Instructions .ROUTE .COMPLEX Qty: 300 3RF Dose Instruction: DIRECTED Rx Instructions: three times daily (DME) lancets [FreeStyle Lancets] 28 gauge misc See Rx Instructions .Route Qty: 300 3RF Rx Instructions: three times daily oxcarbazepine 150 mg tablet 150 mg PO DAILY oxcarbazepine 600 mg tablet 600 mg PO DAILY melatonin 10 mg tablet extended release 5 mg PO BEDTIME PRN fenofibrate 54 mg tablet 54 mg PO DAILY 90 Days Qty: 90 1RF carisoprodol 350 mg tablet 350 mg PO DAILY PRN (Reason: Muscle Spasm) 30 Days Qty: 30 0RF clotrimazole-betamethasone 1-0.05 % cream 1 appl topical BID 7 Days Qty: 45 0RF Rx Instructions: Not to be combined with other topical corticosteroids. Print Language: Yemeni
--- NOTE | 2024-09-27 14:07 | PC.NURSE ---
Pt. refused VS prior to d/c- states her ride is here and she has to leave now.
[2024-09-27 14:08] VITALS: BP 155/89; PULSE 99; RESP 20; TEMP 36; O2SAT 100
== END 2024-09-27 14:08 | disposition home or self-care (01) ==
PROVIDERS: Emergency Provider Student in an Organized Health Care Education/Training Program; PCP Internal Medicine
DX: M54.16 Radiculopathy, lumbar region (principal); M25.551 Pain in right hip; I10 Essential (primary) hypertension; Z79.899 Other long term (current) drug therapy; Z87.891 Personal history of nicotine dependence
CPT/HCPCS: 72100; 73502; 99282; 99283

== ENCOUNTER → 2024-09-27 11:07 | Outpatient (BNV) | payer OTHER, SELFPAY | PROVIDERS: PCP Internal Medicine; Visit Provider Radiology Diagnostic Radiology | DX: M54.50 Low back pain, unspecified (principal); M25.551 Pain in right hip | CPT/HCPCS: 72100; 73502 ==

== ENCOUNTER 2024-10-03 07:33 | Outpatient (AMB) | payer OTHER, SELFPAY ==
--- NOTE | 2024-10-03 08:31 | MHC.PC.OV ---
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 Accompanied by: Self / Same As Patient Allergies insulin glargine [From Lantus U-100 Insulin] Allergy (Severe, Verified 10/03/24 08:52) paralized nickel Allergy (Severe, Verified 10/03/24 08:52) Rash Penicillins Allergy (Severe, Verified 10/03/24 08:52) Hives acetaminophen [Percocet] Allergy (Intermediate, Verified 10/03/24 08:52) vomiting cyclobenzaprine [CYCLOBENZAPRINE] Allergy (Intermediate, Verified 10/03/24 08:52) HEADACHE,DIZZINESS divalproex sodium [Depakote] Allergy (Intermediate, Verified 10/03/24 08:52) increase liver enzymes methocarbamol [METHOCARBAMOL] Allergy (Intermediate, Verified 10/03/24 08:52) TICS oxycodone [From PERCOCET] Allergy (Intermediate, Verified 10/03/24 08:52) VOMITING insulin degludec [From Tresiba FlexTouch U-100] Adverse Reaction (Severe, Verified 10/03/24 08:52) loss of balance, body aches liraglutide [From Victoza] Adverse Reaction (Severe, Verified 10/03/24 08:52) hypoglycemia lisinopril Adverse Reaction (Severe, Verified 10/03/24 08:52) Dizziness risperidone [RISPERIDONE] Adverse Reaction (Severe, Verified 10/03/24 08:52) CHEST PAIN baclofen Adverse Reaction (Intermediate, Verified 10/03/24 08:52) Palpitations canagliflozin [Invokana] Adverse Reaction (Intermediate, Verified 10/03/24 08:52) confusion dulaglutide [Trulicity] Adverse Reaction (Intermediate, Verified 10/03/24 08:52) abdominal bloating, numbness, myalgia Narcotics Allergy (Mild, Uncoded 10/03/24 08:52) dizzy, sick Medication List - Last Reconciled 10/03/24 by An Aguilar MD albuterol sulfate 90 mcg/actuation 1 - 2 puffs inhalation Q4-6H PRN alpha lipoic acid 600 mg PO BIDAC blood pressure monitor As directed blood-glucose meter As directed blood-glucose sensor (Dexcom G7 Sensor device) As directed carisoprodol 350 mg PO DAILY PRN 30 days cholecalciferol (vitamin D3) 25 mcg PO DAILY 90 days clotrimazole-betamethasone 1-0.05 % 1 appl topical BID 7 days cyanocobalamin (vitamin B-12) 1,000 mcg PO DAILY diazepam 10 mg PO BID PRN erythromycin 0.5 inches ophthalmic (eye) BID 5 days fenofibrate 54 mg PO DAILY 90 days flash glucose sensor (FreeStyle Avi 14 Day Sensor kit) As directed FreeStyle Lancets (lancets) three times daily NS FreeStyle Lite Meter (blood-glucose meter) test 3 times per day NS FreeStyle Lite Strips (blood sugar diagnostic) three times daily NS ibuprofen 600 mg PO TID PRN 90 days insulin lispro (Humalog KwikPen U-200 Insulin) 22 units subcut TID lidocaine 5% 1 patch topical DAILY melatonin ER 5 mg PO BEDTIME PRN mupirocin 2% 1 appl topical BID oxcarbazepine 150 mg PO DAILY oxcarbazepine 600 mg PO DAILY pen needle, diabetic (Advocate Pen Needle) Use 1 pen needle once a day pen needle, diabetic As directed pen needle, diabetic, safety (Assure ID Pen Needle) Use 1 pen needle once a day Trulicity (dulaglutide) 1.5 mg (0.5 mL) subcut QWEEK NS vitamin B complex 1 tab PO DAILY Tobacco use date assessed: 10/03/24 Dental Screening Dental Screen Date: 10/03/24 Did you have a dental visit in the last 12 months?: No Did you have a dental problem in the last 6 months where you did not have access to dental care?: No Was dental information given to patient?: Patient has dentist HPI HPI Comments History of Present Illness Details The patient is a 64-year-old female presenting with muscle spasm. She reports symptoms of severe pain and muscle tension, particularly affecting her right hip and knee, which have been ongoing for over a week following an unspecified incident. The patient describes an episode during which blood was observed coming from her oral cavity, although the relation of this to her pain is unclear. She reports difficulty sleeping due to the pain, with significant impact on her daily function. A previous episode of intense pain was managed in an emergency setting with tramadol. She indicates that the current pain episode is worse than before, contributing to sleep deprivation and functional limitation. Historical management includes the use of diazepam and Soma, with efforts to avoid dependence on these medications. The patient acknowledges a background of diabetes mellitus, controlled with Humalog and Trulicity. Previous management for hypertriglyceridemia includes fenofibrate. The patient is on medications from her psychiatrist for bipolar disorder, depression and anxiety. [facility] Medical History (Updated 10/03/24 @ 12:44 by An Aguilar MD) Hyperlipidemia LDL goal <70 Encounter for well woman exam with routine gynecological exam Diabetes mellitus Physical exam Vaginal burning Vaginal itching Basilar migraine Acute vaginitis Encounter for annual routine gynecological examination Hospital discharge follow-up Shortness of breath COVID-19 Dysuria Vaginal irritation Herpes simplex virus (HSV) infection Intertrigo Diabetes mellitus Migraine with aura Hypertension Renal calculi Chest pain Mixed hyperlipidemia Fibromyalgia Chronic neck pain Nickel allergy Nickel dermatitis Polyarthralgia Surgical History H/O esophagogastroduodenoscopy History of prior ablation treatment History of discectomy History of laparoscopy History of tubal ligation History of colonoscopy History of laparoscopic cholecystectomy History of section Family History Father Prostate cancer Diabetes High cholesterol HTN (hypertension) Mother Liver problem Diabetes High cholesterol HTN (hypertension) Family/Other Diabetes High cholesterol HTN (hypertension) Cancer Social History Household Members: Children Household Members Other:: Son Housing: Apartment Alcohol intake: never Comment: pt refuses bed/chair alarm Patient Tobacco Use Status: Former Tobacco user Tobacco use type: Cigarette Years Smoked: 18 e-Cigarette/Vaping Use: Never Used Second Hand Smoke Exposure: No service: No Current occupational status: disabled Sexual orientation: Straight/Heterosexual Gender identity: Female Cognitive needs: No Hearing needs: No Vision needs: No Questionnaire PHQ-9 Over the last 2 weeks, how often have you been bothered by any of the following problems? 1. Little interest or pleasure in doing things: not at all 2. Feeling down, depressed, or hopeless: several days 3. Trouble falling or staying asleep, or sleeping too much: several days 4. Feeling tired or having little energy: several days 5. Poor appetite or overeating: not at all 6. Feeling bad about yourself - or that you are a failure or have let yourself or your family down: not at all 7. Trouble concentrating on things, such as reading the newspaper or watching television: not at all 8. Moving or speaking so slowly that other people could have noticed. Or the opposite - being so fidgety or restless that you have been moving around a lot more than usual: not at all 9. Thoughts that you would be better off or of hurting yourself in some way: not at all Total score: 3 Depression Screening Interpretation: Positive Depression Screening Follow-up: Existing condition, In treatment, Community Mental Health Worker F/U and Follow-up Visit Requested Depression Screening Done: Yes 83798 - PHQ-9 Billing: Yes Source: Developed by Drs. Frank Kay, Drea Griggs, Diego Corcoran and colleagues, with an educational javier from [employer]. Thrive Questionnaire Date Thrive assessed: 10/03/24 I am a: Patient What is your living situation today?: I have a steady place to live Within the past 12 months, did the food you bought not last and you didn't have the money to get more?: Never true Within the past 12 months, did you worry whether your food would run out before you got money to buy more?: Never true Do you have trouble paying for medicines?: No Do you have trouble getting transportation to medical appointments?: No Do you have trouble paying your heating and electricity bill?: No Do you have trouble taking care of your child, family member or friend?: No Do you have trouble with day-to-day activities such as bathing, preparing meals, shopping, managing finances, etc.?: No Are you currently unemployed and looking for a job?: No Are you interested in more education?: No Please select the resources that you would like help with: None Currently or been in a relationship where the following occur: No concerns reported THRIVE Score: 0 AUDIT C Alcohol Use Questionnaire (AUDIT-C) 1. How often do you have a drink containing alcohol?: Never Total Score: 0 Score Reviewed/Action Taken: No ABBY-7 AMB Questionnaire ABBY-7 Date ABBY - 7 assessed: 10/03/24 Feeling nervous, anxious, or on edge: 1 = Several days Not being able to stop or control worryin = Not at all Worrying too much about different things: 1 = Several days Trouble relaxin = Several days Being so restless that it is hard to sit still: 0 = Not at all Becoming easily annoyed or irritable: 0 = Not at all Feeling afraid as if something awful might happen: 1 = Several days Total ABBY-7 score (0-4 normal; 5-9 mild; 10-14 moderate; 15-21 severe): 4 Source: Developed by Drs. Frank Kay, Drea Griggs, Diego Corcoran and colleagues, with an educational javier from [employer]. ABBY-7 Assessment Billing ABBY-7 Assessment Tool: ABBY-7 Assessment 10395 Review of Systems Const All systems reviewed & are unremarkable except as noted in HPI and below Card Denies chest pain at rest, Denies chest pain with activity, Denies edema, Denies irregular heart rhythm, Denies claudication, Denies dyspnea, Denies dyspnea on exertion, Denies orthopnea, Denies paroxysmal nocturnal dyspnea and Denies slow heart rate Resp Denies cough, Denies dyspnea and Denies dyspnea on exertion Musc Reports back pain and Reports arthralgias Physical exam (Primary Care) Vital Signs: Last Vital Signs BP 124/86 10/03/24 08:34 BMI result Body Mass Index 28.9 Tobacco/Smoking Status: Tobacco use Status Tobacco use date assessed 10/03/24 10/03/24 08:43 Patient Tobacco Use Status Former Tobacco user 10/03/24 08:31 Tobacco use type Cigarette 10/03/24 08:31 e-Cigarette/Vaping Use Never Used 10/03/24 08:31 PHQ-9: PHQ-9 Score PHQ-9: Total score 3 10/03/24 09:15 Depression Screening Interpretation: Positive Depression Screening Follow-up: Existing condition, In treatment, Community Mental Health Worker F/U and Follow-up Visit Requested Thrive Assessment: Date of Thrive Assessment Date Thrive assessed 10/03/24 10/03/24 08:43 Currently or been in a relationship where the following occur: No concerns reported Resp Effort & Inspection: normal respiratory effort Auscultation: clear to auscultation bilaterally Cardio Jugular venous distension: no JVD Rate: regular rate Rhythm: regular rhythm Heart sounds: S1 normal heart sound present and S2 normal heart sound present Extrem Right lower extremity: hip/thigh Details: tenderness and knee Details: tenderness Office Procedures Flu Questionnaire Does the patient have a severe egg allergy?: No Results AMB Hemoglobin A1c AMB Hemoglobin A1c 14.0 % Last Edit by CHAI Washburn on 10/03/24 08:45 Immunizations Fluarix Triv [id number] (PF) 45 mcg (15 mcg x 3)/0.5 mL IM syringe Performing Provider: An Aguilar MD [place] [facility] [facility] [place] [facility] Documented (not given) by: CHAI Washburn on 10/03/24 08:48 Reason Not Given: Patient Refused Results Reviewed Results Reviewed: Laboratory Last Values Hgb A1c (Clinic) 14.0 % (4.0-6.0) H 10/03/24 08:31 Coding Level of Care Code Est Pt Level 4 (87720) Complex EM visit Add On G2211 Diagnoses Diabetes mellitus with hyperglycemia, with long-term current use of insulin E11.65; Z79.4 Right knee pain M25.561 Right hip pain M25.551 Bipolar affective disorder, remission status unspecified F31.9 Active/Remission status: remission status unspecified ABBY (generalized anxiety disorder) F41.1 Hyperlipidemia LDL goal <70 E78.5 Additional Codes ABBY-7 Assessment Billing - ABBY-7 Assessment Tool: ABBY-7 Assessment 31246 ([id number]) PHQ-9 - 26314 - PHQ-9 Billing: Yes ([id number]) Time Spent (min) 23 Assessment & Plan Assessment & Plan (1) Diabetes mellitus with hyperglycemia, with long-term current use of insulin: Code(s): E11.65 - Type 2 diabetes mellitus with hyperglycemia; Z79.4 - director long term care (current) use of insulin Category: Medical (2) Right knee pain: Code(s): M25.561 - Pain in right knee Category: Medical (3) Right hip pain: Code(s): M25.551 - Pain in right hip Category: Medical (4) Bipolar disorder: Code(s): F31.9 - Bipolar disorder, unspecified Category: Medical Qualifiers: Active/Remission status: remission status unspecified Qualified Code(s): F31.9 - Bipolar disorder, unspecified (5) ABBY (generalized anxiety disorder): Code(s): F41.1 - Generalized anxiety disorder Category: Medical (6) Hyperlipidemia LDL goal <70: Code(s): E78.5 - Hyperlipidemia, unspecified Category: Medical Plan - Recommend continuation of Soma for muscle relaxation. - Prescribe tramadol for pain management as previously used in an emergency setting. - Consider diazepam for muscle tension relief on a short-term basis. - Additional evaluations with X-rays for the hip and knees to rule out structural causes. - Monitor diabetes control with possible adjustments to Humalog and Trulicity doses. - Continue current psychiatric medication and encourage follow-up with psychiatrist. - Monitor and manage hypertriglyceridemia with fenofibrate as previously prescribed. Patient was informed and verbally consented to the use of an ambient scribe for clinic note documentation during this visit. I discussed with the patient the likely benefits of continuing Soma and the introduction of tramadol as needed to manage her musculoskeletal discomfort. We discussed the risks associated with diazepam dependency, emphasizing short-term use. I explained the potential need for dosage adjustments in her diabetes medications, Humalog and Trulicity, due to persistent hyperglycemia. We will perform diagnostic imaging to assess for any structural changes contributing to the musculoskeletal pain. I recommended close monitoring of her psychiatric medications in collaboration with her mental health provider. The patient was advised to adhere to her current medication regimen and return for any worsening symptoms or side effects. Orders: Orders XR knee RT 2V Today M25.561 - Pain in right knee US venous duplex LE RT Today M79.604 - Pain in right leg Lipid Panel 3 Months E78.5 - Hyperlipidemia, unspecified Vitamin B12 and Folate 3 Months E53.8 - Deficiency of other specified B group vitamins Vitamin D 25-OH Total 3 Months E55.9 - Vitamin D deficiency, unspecified AMB Hemoglobin A1c Today E11.65 - Type 2 diabetes mellitus with hyperglycemia, Z79.4 - director long term care (current) use of insulin Influenza [id number] Immunization Today Z23 - Encounter for immunization XR femur RT 2V Today M79.604 - Pain in right leg XR hip RT min 2V Today M25.551 - Pain in right hip Microalbumin, Random (w Creat) 3 Months R80.9 - Proteinuria, unspecified Complete Blood Count Auto Diff 3 Months D64.9 - Anemia, unspecified IRON PROFILE 3 Months D64.9 - Anemia, unspecified Comprehensive [place]. Panel Fast 3 Months E11.65 - Type 2 diabetes mellitus with hyperglycemia, Z79.4 - director long term care (current) use of insulin Medications: New dulaglutide (Trulicity) 3 mg (0.5 mL) subcut QWEEK 6.5 mL 1RF 90 days E11.65 - Type 2 diabetes mellitus with hyperglycemia, Z79.4 - residential (current) use of insulin tramadol 50 mg PO Q8H PRN 30 tabs 0RF pain 10 days M25.561 - Pain in right knee Changed From insulin lispro (Humalog KwikPen U-200 Insulin) 22 units subcut TID E11.65 - Type 2 diabetes mellitus with hyperglycemia, Z79.4 - residential (current) use of insulin To insulin lispro (Humalog KwikPen U-200 Insulin) 25 units (0.125 mL) subcut TID 33.75 mL 3RF 90 days E11.65 - Type 2 diabetes mellitus with hyperglycemia, Z79.4 - director long term care (current) use of insulin Refilled fenofibrate 54 mg PO DAILY 90 tabs 1RF 90 days Discontinued Trulicity (dulaglutide) Discontinued Reason: Patient Completed Course 1.5 mg (0.5 mL) subcut QWEEK 6 mL 3RF NS Patient Instructions: - Continue taking Soma as prescribed for muscle relaxation. - Use tramadol for pain management as needed, but not exceeding every eight hours. - Take diazepam sparingly for muscle tension to avoid dependency. - Monitor blood glucose levels; follow up for possible adjustments to insulin therapy. - Keep up with fenofibrate as prescribed for triglyceride management. - Seek medical attention for any worsening of symptoms or adverse effects of medications. - Schedule follow-up appointments to review imaging results and adjust treatment as necessary.
[2024-10-03 08:34] VITALS: BP 124/86; BMI 28.9
== END 2024-10-03 09:07 | disposition home or self-care (01) ==
PROVIDERS: PCP Internal Medicine; Visit Provider Internal Medicine
DX: E11.65 Type 2 diabetes mellitus with hyperglycemia (principal); Z79.4 Long term (current) use of insulin; M25.561 Pain in right knee; M25.551 Pain in right hip; F31.9 Bipolar disorder, unspecified; F41.1 Generalized anxiety disorder; E78.5 Hyperlipidemia, unspecified; Z23 Encounter for immunization

== ENCOUNTER → 2024-10-03 07:33 | Outpatient (BNVA) | payer OTHER, SELFPAY | PROVIDERS: PCP Internal Medicine; Visit Provider Internal Medicine | DX: E11.65 Type 2 diabetes mellitus with hyperglycemia (principal); M25.561 Pain in right knee; M25.551 Pain in right hip; F31.9 Bipolar disorder, unspecified; F41.1 Generalized anxiety disorder; E78.5 Hyperlipidemia, unspecified; Z79.4 Long term (current) use of insulin | CPT/HCPCS: 83036; 90471; 96127; 99212 ==

== ENCOUNTER 2024-10-03 09:30 | Outpatient (REF) | payer OTHER, SELFPAY ==
--- NOTE | ~2024-10-03 | XR_ITS ---
CLINICAL HISTORY: M25.561 - Pain in right knee 2 view right knee Comparison: None Findings: Bones intact. No dislocations. Medial and patellofemoral compartment osteophyte formation without joint space loss. No joint effusion. No radiopaque foreign body. IMPRESSION: 1. Mild bi compartment osteoarthropathy. This document has been electronically signed by: Karishma Kemp MD on 10/04/2024 06:16:41
--- NOTE | ~2024-10-03 | XR_ITS ---
CLINICAL HISTORY: M79.604 - Pain in right leg 2 view right femur Comparison: None Findings: No fractures or dislocations. No knee effusion. Mild degenerative change of the hip and knee. No radiopaque foreign body. IMPRESSION: 1. No acute findings. This document has been electronically signed by: Karishma Kemp MD on 10/04/2024 06:16:22
--- NOTE | ~2024-10-03 | US_ITS ---
EXAMINATION: US TRIPLEX LOWER EXTREMITY, RIGHT CLINICAL INFORMATION: Right lower extremity pain. COMPARISON: None available. TECHNIQUE: Color-flow triplex imaging with spectral analysis and compression Doppler were performed on the right lower extremity. FINDINGS: Respiratory variation, normal compression and augmented flow are noted throughout the right lower extremity. The visualized common femoral vein, superficial femoral vein, profunda femoral vein, popliteal vein and midcalf peroneal and posterior tibial venous segments show no evidence of deep venous thrombosis. There is no Howe's cyst. US/US venous duplex LE RT IMPRESSION: No acute deep venous thrombosis interrogated veins, right lower extremity. Electronically signed by: Dez Reddy MD 10/03/2024 10:11 AM [facility]
--- NOTE | ~2024-10-03 | XR_ITS ---
CLINICAL HISTORY: M25.551 - Pain in right hip 3 view, pelvis and right hip Comparison: None Findings: No acute fracture or dislocation. No aggressive lesions. Mild joint space loss with subchondral sclerosis and osteophyte formation. The soft tissues are unremarkable. IMPRESSION: Mild degenerative change. This document has been electronically signed by: Karishma Kemp MD on 10/04/2024 06:16:16
== END 2024-10-03 09:31 | disposition home or self-care (01) ==
LOC: HO.US 09:30
PROVIDERS: PCP Internal Medicine; Visit Provider Internal Medicine
DX: M25.561 Pain in right knee (principal); M25.551 Pain in right hip; M79.604 Pain in right leg
CPT/HCPCS: 73502; 73552; 73560; 93971

== ENCOUNTER → 2024-10-03 09:34 | Outpatient (BNV) | payer OTHER, SELFPAY | PROVIDERS: PCP Internal Medicine; Visit Provider Radiology Diagnostic Radiology | DX: M79.604 Pain in right leg (principal) | CPT/HCPCS: 93971 ==

== ENCOUNTER 2024-11-15 13:27 | Outpatient (AMB) | payer OTHER, SELFPAY ==
--- NOTE | 2024-11-15 13:27 | A.OFFVIS_ITS ---
Vital Signs 11/15/24 13:29 Height 4 ft 11 in Weight 140 lb 3.424 oz BMI 28.3 BP 122/72 Blood Pressure Location Rt brachial Position Sitting Pulse 85 Pulse Source Pulse Oximeter Pulse Oximetry (%) 99 Oxygen Delivery Method Room Air Intake Visit Reasons: DM Intake Note: Patient presents today for a follow-up on Type 2 Diabetes Mellitus: Last Diabetic eye exam was on: DUE Last Podiatry exam was on: Does not see a Meter Repairer Most recent HbA1c: 14.0%, 10/03/2024 Random Glucose- 444 mg/dL, Today Cylinder Filler Required: No Accompanied by: Self / Same As Patient Allergies insulin glargine [From Lantus U-100 Insulin] Allergy (Severe, Verified 11/15/24 13:29) paralized nickel Allergy (Severe, Verified 11/15/24 13:29) Rash Penicillins Allergy (Severe, Verified 11/15/24 13:29) Hives acetaminophen [Percocet] Allergy (Intermediate, Verified 11/15/24 13:29) vomiting cyclobenzaprine [CYCLOBENZAPRINE] Allergy (Intermediate, Verified 11/15/24 13:29) HEADACHE,DIZZINESS divalproex sodium [Depakote] Allergy (Intermediate, Verified 11/15/24 13:29) increase liver enzymes methocarbamol [METHOCARBAMOL] Allergy (Intermediate, Verified 11/15/24 13:29) TICS oxycodone [From PERCOCET] Allergy (Intermediate, Verified 11/15/24 13:29) VOMITING insulin degludec [From Tresiba FlexTouch U-100] Adverse Reaction (Severe, Verified 11/15/24 13:29) loss of balance, body aches liraglutide [From Victoza] Adverse Reaction (Severe, Verified 11/15/24 13:29) hypoglycemia lisinopril Adverse Reaction (Severe, Verified 11/15/24 13:29) Dizziness risperidone [RISPERIDONE] Adverse Reaction (Severe, Verified 11/15/24 13:29) CHEST PAIN baclofen Adverse Reaction (Intermediate, Verified 11/15/24 13:29) Palpitations canagliflozin [Invokana] Adverse Reaction (Intermediate, Verified 11/15/24 13:29) confusion dulaglutide [Trulicity] Adverse Reaction (Intermediate, Verified 11/15/24 13:29) abdominal bloating, numbness, myalgia Narcotics Allergy (Mild, Uncoded 11/15/24 13:29) dizzy, sick Medication List - Last Reconciled 11/16/24 by Sharron Yates MD albuterol sulfate 90 mcg/actuation 1 - 2 puffs inhalation Q4-6H PRN alpha lipoic acid 600 mg PO BIDAC blood pressure monitor As directed blood-glucose meter As directed blood-glucose sensor ([email or web address] G7 Sensor device) As directed carisoprodol 350 mg PO DAILY PRN 30 days cholecalciferol (vitamin D3) 25 mcg PO DAILY 90 days clotrimazole-betamethasone 1-0.05 % 1 appl topical BID 7 days cyanocobalamin (vitamin B-12) 1,000 mcg PO DAILY diazepam 10 mg PO BID PRN dulaglutide (Trulicity) 3 mg (0.5 mL) subcut QWEEK 90 days erythromycin 0.5 inches ophthalmic (eye) BID 5 days fenofibrate 54 mg PO DAILY 90 days flash glucose sensor (FreeStyle Avi 14 Day Sensor kit) As directed FreeStyle Lancets (lancets) three times daily NS FreeStyle Lite Meter (blood-glucose meter) test 3 times per day NS FreeStyle Lite Strips (blood sugar diagnostic) three times daily NS ibuprofen 600 mg PO TID PRN 90 days insulin lispro (Humalog KwikPen U-200 Insulin) 25 units (0.125 mL) subcut TID 90 days lidocaine 5% 1 patch topical DAILY melatonin ER 5 mg PO BEDTIME PRN mupirocin 2% 1 appl topical BID oxcarbazepine 150 mg PO DAILY oxcarbazepine 600 mg PO DAILY pen needle, diabetic (Advocate Pen Needle) Use 1 pen needle once a day pen needle, diabetic As directed pen needle, diabetic, safety (Assure ID Pen Needle) Use 1 pen needle once a day tramadol 50 mg PO Q8H PRN 10 days vitamin B complex 1 tab PO DAILY HPI Comments Details: This is a 63-year-old female with type 2 diabetes presenting for follow up Med Hx: bipolar disorder, cirrhosis, diabetes mellitus type 2 on long-term current use of insulin, hyperlipidemia, polyarthralgia 09/2024 A1C 14.0%, BG today 444. Declines insulin. 07/2024 A1C 13.5%. She continues to endorse majority of readings in 200s-300s. Says am glucose this morning 88. She came early to her appt and now her ride is here at her appt time so she is in a fernandez. Says feels ok will not take insulin offered. No CGM: sensor was causing bleeding. Current prescribed medications: Humalog 25 TID (reports compliance)-needs refill, compliant with Trulicity 3 weekly. She was prescribed Toujeo 10 qhs (never started). Did not like lantus. Reports she has been better with diet and blood glucose has improved from highs of 600s to 200s. Denies hypoglycemia. Doesnt have meter today Past medications: actos (says gave her hypoglycemia), glipizide (says gave her hypoglycemia), Victoza (hypoglycemia), Tresiba (balance issues), Lantus (muscle weakness), SGLT-vaginal rash Micro/Macrovasular complications: neuropathy Eye exam due Podiatry-declines ROS CONSTITUTIONAL: Denies weight loss, fever and chills. HEENT: Denies changes in vision and hearing. RESPIRATORY: Denies SOB and cough. CV: Denies palpitations and CP GI: Denies abdominal pain, nausea, vomiting and diarrhea. Endorses chronic bloating : Denies dysuria and urinary frequency. MSK: Denies new myalgia and joint pain. SKIN: Denies rash and pruritus. NEUROLOGICAL: Denies headache PSYCHIATRIC: Denies recent changes in mood. PHYSICAL EXAM: GENERAL: Alert and oriented x 3. NAD EYES: EOMI. Anicteric. HENT: Moist mucous membranes. No scleral icterus. No cervical lymphadenopathy. LUNGS: Clear to auscultation bilaterally. CARDIOVASCULAR: Regular rate and rhythm. No murmur. No JVD. ABDOMEN: Soft, obese, non-tender +bs EXTREMITIES: No edema. Non-tender. SKIN: No rashes or lesions. Warm. NEUROLOGIC: No focal neurological deficits. CN II-XII grossly intact PSYCHIATRIC: Cooperative. Appropriate mood and affect [facility] Medical History Hyperlipidemia LDL goal <70 Encounter for well woman exam with routine gynecological exam Diabetes mellitus Physical exam Vaginal burning Vaginal itching Basilar migraine Acute vaginitis Encounter for annual routine gynecological examination Hospital discharge follow-up Shortness of breath COVID-19 Dysuria Vaginal irritation Herpes simplex virus (HSV) infection Intertrigo Diabetes mellitus Migraine with aura Hypertension Renal calculi Chest pain Mixed hyperlipidemia Fibromyalgia Chronic neck pain Nickel allergy Nickel dermatitis Polyarthralgia Surgical History H/O esophagogastroduodenoscopy History of prior ablation treatment History of discectomy History of laparoscopy History of tubal ligation History of colonoscopy History of laparoscopic cholecystectomy History of section Family History Father Prostate cancer Diabetes High cholesterol HTN (hypertension) Mother Liver problem Diabetes High cholesterol HTN (hypertension) Family/Other Diabetes High cholesterol HTN (hypertension) Cancer Social History Household Members: Children Household Members Other:: Son Housing: Apartment Alcohol intake: never Comment: pt refuses bed/chair alarm Patient Tobacco Use Status: Former Tobacco user Tobacco use type: Cigarette Years Smoked: 18 e-Cigarette/Vaping Use: Never Used Second Hand Smoke Exposure: No service: No Current occupational status: disabled Sexual orientation: Straight/Heterosexual Gender identity: Female Cognitive needs: No Hearing needs: No Vision needs: No Physical Exam Vital Signs: Last Vital Signs Pulse 85 11/15/24 13:29 BP 122/72 11/15/24 13:29 Pulse Ox 99 11/15/24 13:29 Oxygen Delivery Method Room Air 11/15/24 13:29 BMI result Body Mass Index 28.3 Results Reviewed Results Reviewed: Laboratory Last Values Glucose (Clinic) 444 mg/dL (60-115) H* 11/15/24 13:37 Assessment & Plan Assessment & Plan (1) Diabetes mellitus with hyperglycemia, with long-term current use of insulin: Code(s): E11.65 - Type 2 diabetes mellitus with hyperglycemia; Z79.4 - half-way (current) use of insulin Category: Medical Qualifiers: Diabetes mellitus type: type 2 Qualified Code(s): E11.65 - Type 2 harry betes mellitus with hyperglycemia; Z79.4 - half-way (current) use of insulin Plan: Uncontrolled. Unclear compliance. Appt rushed today. She refused offered insulin for BG 444 She will follow up short term. No medication changes. No meter download. Medications: Refilled insulin lispro (Humalog KwikPen U-200 Insulin) 25 units (0.125 mL) subcut TID 45 mL 3RF 90 days E11.65 - Type 2 diabetes mellitus with hyperglycemia, Z79.4 - half-way (current) use of insulin lidocaine 5% leave on most painful area for up to 12 hrs 1 patch topical DAILY 15 ea 0RF Coding Level of Care Code Est Pt Level 4 (96148) Diagnoses Type 2 diabetes mellitus with hyperglycemia, with long-term current use of insulin E11.65; Z79.4 Diabetes mellitus type: type 2
[2024-11-15 13:29] VITALS: BP 122/72; PULSE 85; O2SAT 99; BMI 28.3
[2024-11-15 13:43] LABS: Glucose, Whole Blood 444 mg/dL (60-115)
== END 2024-11-15 14:16 | disposition home or self-care (01) ==
PROVIDERS: PCP Internal Medicine; Visit Provider Internal Medicine
DX: E11.65 Type 2 diabetes mellitus with hyperglycemia (principal); Z79.4 Long term (current) use of insulin

== ENCOUNTER → 2024-11-15 13:27 | Outpatient (BNVA) | payer OTHER, SELFPAY | PROVIDERS: PCP Internal Medicine; Visit Provider Internal Medicine | DX: E11.65 Type 2 diabetes mellitus with hyperglycemia (principal); Z79.4 Long term (current) use of insulin | CPT/HCPCS: 82947; 99212 ==

== ENCOUNTER 2024-12-20 13:08 | Outpatient (AMB) | payer OTHER, SELFPAY ==
--- NOTE | 2024-12-20 13:12 | MHC.OFFVIS ---
Vital Signs 12/20/24 13:13 Height 4 ft 11 in Weight 137 lb BMI 27.7 BP 167/79 H Blood Pressure Location Lt radial Position Sitting Pulse 99 Intake Visit Reasons: 3 month f.u Intake Note: Alia returns to in office follow up of gastric emptying study. CC: Patient reports doing well and denies any new GI symptoms or concerns. 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 Required: No Accompanied by: Self / Same As Patient Allergies insulin glargine [From Lantus U-100 Insulin] Allergy (Severe, Verified 12/20/24 13:28) paralized nickel Allergy (Severe, Verified 12/20/24 13:28) Rash Penicillins Allergy (Severe, Verified 12/20/24 13:28) Hives acetaminophen [Percocet] Allergy (Intermediate, Verified 12/20/24 13:28) vomiting cyclobenzaprine [CYCLOBENZAPRINE] Allergy (Intermediate, Verified 12/20/24 13:28) HEADACHE,DIZZINESS divalproex sodium [Depakote] Allergy (Intermediate, Verified 12/20/24 13:28) increase liver enzymes methocarbamol [METHOCARBAMOL] Allergy (Intermediate, Verified 12/20/24 13:28) TICS oxycodone [From PERCOCET] Allergy (Intermediate, Verified 12/20/24 13:28) VOMITING insulin degludec [From Tresiba FlexTouch U-100] Adverse Reaction (Severe, Verified 12/20/24 13:28) loss of balance, body aches liraglutide [From Victoza] Adverse Reaction (Severe, Verified 12/20/24 13:28) hypoglycemia lisinopril Adverse Reaction (Severe, Verified 12/20/24 13:28) Dizziness risperidone [RISPERIDONE] Adverse Reaction (Severe, Verified 12/20/24 13:28) CHEST PAIN baclofen Adverse Reaction (Intermediate, Verified 12/20/24 13:28) Palpitations canagliflozin [Invokana] Adverse Reaction (Intermediate, Verified 12/20/24 13:28) confusion dulaglutide [Trulicity] Adverse Reaction (Intermediate, Verified 12/20/24 13:28) abdominal bloating, numbness, myalgia Narcotics Allergy (Mild, Uncoded 11/15/24 13:29) dizzy, sick HPI HPI 3 month f.u: Details: Assessment & Plan (1) Abdominal pain: Code(s): R10.9 - Unspecified abdominal pain Category: Medical (2) GERD (gastroesophageal reflux disease): Code(s): K21.9 - Gastro-esophageal reflux disease without esophagitis Category: Medical Qualifiers: Esophagitis presence: esophagitis presence not specified Qualified Code(s): K21.9 - Gastro-esophageal reflux disease without esophagitis (3) Chronic pancreatitis: Code(s): K86.1 - Other chronic pancreatitis Category: Medical (4) Nausea and vomiting: Code(s): R11.2 - Nausea with vomiting, unspecified Category: Medical (5) Pelvic congestion syndrome: Comment: CT 06/2024 VASCULAR: There is marked reflux into a dilated left gonadal vein with associated large number of left-sided pelvic varices. Code(s): N94.89 - Other specified conditions associated with female genital organs and menstrual cycle Category: Medical (6) Back pain: Code(s): M54.9 - Dorsalgia, unspecified Category: Medical Plan (she likes Adalgisa Hargrove! It appears she went off of her Trulicity, her sugars became uncontrolled and this caused her increased transaminases. She describes a left sided abd throbbing/pounding pain, that is in her back and keeps her up at night. Her recent CT does show possible pelvic congestion syndrome and I am not certain if this could be a c/f in her pain. She has had a pelvic US that is not yet read ordered by [employer]. She can not take opioids r/t N/V so I suggest tyenol with NSAID which she has not tried. She has been taking more NSIADS for this pain and this is worsening N/V and GERD. She is quite burdened by all of my pills and is trying to cut out pills and has declined PPI or H2 therapy for many years. Given her recent poorly controlled NIDDM she may benefit form GES. She is very discouraged with the lack of answers. ROV 3 mos. Orders: Orders NM gastric emptying study 07/19/24 R11.2 - Nausea with vomiting, unspecified Referrals Interventional Radiology Referral N94.89 - Other specified conditions associated with female genital organs and menstrual cycle, M54.9 - Dorsalgia, unspecified, R10.9 - Unspecified abdominal pain Vascular Surgery Referral N94.89 - Other specified conditions associated with female genital organs and menstrual cycle, M54.9 - Dorsalgia, unspecified, R10.9 - Unspecified abdominal pain GASTRIC EMPTYING STUDY 09/11/2024 FINDINGS: There is good visualization of activity in the stomach immediately post ingestion. As the study progresses, there is good clearance of activity from the stomach into the small bowel with no significant retention noted by the end of the study time period. Retention in the stomach at each time interval was;: 1 hour 63% (normal < 90%) 2 hours 24% (normal < 60%) 3 hours 13% 4 hours 8% (normal < 10%) Gastric emptying study grading per Consensus Recommendations in 2008 (https://tech.snmjournals.org/content/36) NM/NM gastric emptying study IMPRESSION: There is no scintigraphic evidence for delayed gastric emptying. TODAY'S VISIT (she likes Adalgisa Hargrove!) She has lost weight via portion restriction. She also had a surgery recently s/p a slip and fall accident and she hurt her back with lifting as well. This also has helped with her pounding abd pain which I had referred her to [facility] for eval of pelvic congestion syndrome. She has been controlling her stooling with tumeric in her salad. She is eating well. she also found that her rx for an opioid she had s/p back injections caused her severe CIC. She will be visiting [place] soon as she has not seen family for 5 years and there are many having serious health problems. ROV next avail. [facility] Medical History Hyperlipidemia LDL goal <70 Encounter for well woman exam with routine gynecological exam Diabetes mellitus Physical exam Vaginal burning Vaginal itching Basilar migraine Acute vaginitis Encounter for annual routine gynecological examination Hospital discharge follow-up Shortness of breath COVID-19 Dysuria Vaginal irritation Herpes simplex virus (HSV) infection Intertrigo Diabetes mellitus Migraine with aura Hypertension Renal calculi Chest pain Mixed hyperlipidemia Fibromyalgia Chronic neck pain Nickel allergy Nickel dermatitis Polyarthralgia Surgical History H/O esophagogastroduodenoscopy History of prior ablation treatment History of discectomy History of laparoscopy History of tubal ligation History of colonoscopy History of laparoscopic cholecystectomy History of section Family History Father Prostate cancer Diabetes High cholesterol HTN (hypertension) Mother Liver problem Diabetes High cholesterol HTN (hypertension) Family/Other Diabetes High cholesterol HTN (hypertension) Cancer Social History Household Members: Children Household Members Other:: Son Housing: Apartment Alcohol intake: never Comment: pt refuses bed/chair alarm Patient Tobacco Use Status: Former Tobacco user Tobacco use type: Cigarette Years Smoked: 18 e-Cigarette/Vaping Use: Never Used Second Hand Smoke Exposure: No service: No Current occupational status: disabled Sexual orientation: Straight/Heterosexual Gender identity: Female Cognitive needs: No Hearing needs: No Vision needs: No Review of Systems Const Denies fatigue, Denies fever(s), Denies night sweats, Denies poor appetite and Reports weight loss (Intentional dieting) ENT Reports Normal hearing present, Denies dental pain, Denies dysphagia, Denies hearing loss, Denies mouth pain, Denies odynophagia, Denies throat swelling, Denies tongue swelling and Reports other (Dentition adequate) Card Reports no additional complaints Resp Reports no additional complaints GI Details: Denies abdominal pain, Denies melena, Denies bloating, Denies hematochezia, Denies constipation, Denies GI cramping, Denies dysphagia, Denies excessive flatus, Denies early satiety, Denies heartburn, Denies diarrhea, Denies nausea, Denies odynophagia, Denies vomiting and Denies hematemesis Reports flank pain Skin/Breast Denies pruritus, Denies lesions, Denies rash and Denies jaundice Neuro Reports Normal hearing present and Denies Abnormal speech present Psych Reports anxiety and Reports depression Endo Denies fatigue Aller/Immun Denies throat swelling and Denies tongue swelling Physical Exam Vital Signs: Last Vital Signs Pulse 99 12/20/24 13:13 BP 167/79 H 12/20/24 13:13 BMI result Body Mass Index 27.7 Const General: cooperative, no acute distress, well developed and well groomed Nutritional Appearance: well nourished and obese Orientation/consciousness: oriented to person, oriented to place and oriented to time Limitations: No language barrier HEENT Head: Yes normocephalic and Yes atraumatic Eyes General: appearance normal, both eyes and all related structures Pupils: Equal, round and reactive pupils present Neck Neck: Yes normal visual inspection and Yes no lymphadenopathy Thyroid: Thyroid normal Resp Effort & Inspection: normal respiratory effort and able to speak in complete sentences Auscultation: clear to auscultation bilaterally Cardio Rate: regular rate Rhythm: regular rhythm Heart sounds: Normal, physiologic split S2 sound present Peripheral pulses: radial pulses present and posterior tibial pulses present GI Inspection: No distended, No Abdominal panniculus present and Yes obesity Palpation (GI): Soft to palpation, nontender, no guarding, not rigid and No hepatosplenomegaly present Percussion: Yes normal to percussion Auscultation: normal bowel sounds Rectal Exam - Female: deferred Skin General skin exam: no rashes or lesions noted, turgor normal, skin not dry, no jaundice, No spider nevi and no striae Rashes: no rashes Nails: normal Neuro General: oriented to person, oriented to place and oriented to time Cranial nerves: Yes Equal, round and reactive pupils present and Yes Normal hearing present Speech: No Abnormal speech present Extrem General: Yes normal to inspection, No clubbing, No cyanosis and No edema Psych Appearance: grossly normal and well kempt Mental Status: mental status grossly normal Speech and movement: Normal speech and movement present Affect: Animated affect present Attitude: cooperative Thought process: Normal thought process present and not confabulating Thought content: Normal thought content present Insight: Fair insight present (Psych) and Limited insight present (Psych) Judgement: Fair judgement present (Psych) and Limited judgement present (Psych) Assessment & Plan Assessment & Plan (1) Cirrhosis: Comment: BASELINE LABS 01/2018: Total bilirubin 0.6, alk-phos elevated at 134, AST/ALT 37/44, CURRENT LABS 08/03/2303/ [id number] Estimated GFR > 60 Hgb A1c (Clinic) 14 H Total Bilirubin 0.8 AST 27 ALT 29 Alkaline Phosphatase 199 H TSH 3.10 ULTRASOUND OF THE ABDOMEN ORDERED BY PCP 12/10/23 FINDINGS: PANCREAS: Normal. ABDOMINAL AORTA: The proximal, mid, and distal segments are normal in caliber. INFERIOR VENA CAVA: Visualized portions are normal. LIVER: The liver is enlarged. The liver contour is normal. Diffusely increased liver echogenicity. No focal hepatic lesion. There is no intrahepatic biliary duct dilatation seen. GALLBLADDER: Surgically absent. COMMON BILE DUCT: Normal in caliber measuring 0.38 cm in diameter. RIGHT KIDNEY: Normal. No hydronephrosis. No renal calculi or focal parenchymal lesions. The kidney measures 10.6 cm in maximum dimension. LEFT KIDNEY: 1.6 cm simple appearing midpole cyst, stable. No hydronephrosis or renal calculi. The kidney measures 11.3 cm in maximum dimension. SPLEEN: Normal. The spleen measures 11.3 cm in maximum dimension. FREE FLUID: None. US/US abdomen complete IMPRESSION: 1. Diffusely increased liver echogenicity. This is a nonspecific finding but most suggestive of hepatic steatosis. Correlation with liver enzymes recommended. 2. Stable 1.6 cm left renal cyst. CT ABDOMEN AND PELVIS 08/01/23 FINDINGS: LUNG BASES: The visualized lung bases are unremarkable. LIVER, GALLBLADDER, AND BILIARY TREE: The liver is heterogeneous in attenuation and irregular in contour. There is no focal consolidation. There is no intrahepatic biliary duct dilatation. There has been a prior cholecystectomy. PANCREAS: Unremarkable. SPLEEN: Spleen is mildly enlarged measuring up to 14 cm. ADRENAL GLANDS: There bilateral adrenal gland thickening and a 1.4 cm left adrenal nodule.. KIDNEYS AND URETERS: The kidneys are normal in size, shape, and attenuation. There is a 3 mm nonobstructing calculus lower pole left kidney. There is a 1.7 cm cyst upper pole left kidney. There is no hydronephrosis. BLADDER: Unremarkable. GASTROINTESTINAL TRACT: The small and large bowel are unremarkable. The appendix is unremarkable. ABDOMINAL WALL: No significant hernia is appreciated. LYMPH NODES: Normal. VASCULAR: Unremarkable. PELVIC VISCERA: Unremarkable. OSSEOUS STRUCTURES: Unremarkable. CT/CT abdomen pelvis wo IV con IMPRESSION: Heterogeneous irregular liver consistent with hepatocellular disease/cirrhosis. There is mild associated splenomegaly. Obstructing calculus lower pole left kidney. Code(s): K74.60 - Unspecified cirrhosis of liver Category: Medical Qualifiers: Hepatic cirrhosis type: other cirrhosis Qualified Code(s): K74.69 - Other cirrhosis of liver (2) GERD (gastroesophageal reflux disease): Code(s): K21.9 - Gastro-esophageal reflux disease without esophagitis Category: Medical Qualifiers: Esophagitis presence: esophagitis presence not specified Qualified Code(s): K21.9 - Gastro-esophageal reflux disease without esophagitis (3) Chronic pancreatitis: Code(s): K86.1 - Other chronic pancreatitis Category: Medical (4) Pelvic congestion syndrome: Comment: CT 06/2024 VASCULAR: There is marked reflux into a dilated left gonadal vein with associated large number of left-sided pelvic varices. Code(s): N94.89 - Other specified conditions associated with female genital organs and menstrual cycle Category: Medical Plan (she likes Adalgisa Hargrove!) She has lost weight via portion restriction. She also had a surgery recently s/p a slip and fall accident and she hurt her back with lifting as well. This also has helped with her pounding abd pain which I had referred her to [facility] for eval of pelvic congestion syndrome. She has been controlling her stooling with tumeric in her salad. She is eating well. she also found that her rx for an opioid she had s/p back injections caused her severe CIC. She will be visiting [place] soon as she has not seen family for 5 years and there are many having serious health problems. ROV next avail. Coding Level of Care Code Est Pt Level 3 (46712) Diagnoses Other cirrhosis of liver K74.69 Hepatic cirrhosis type: other cirrhosis Gastroesophageal reflux disease, unspecified whether esophagitis present K21.9 Esophagitis presence: esophagitis presence not specified Chronic pancreatitis K86.1 Pelvic congestion syndrome N94.89
[2024-12-20 13:13] VITALS: BP 167/79; PULSE 99; BMI 27.7
== END 2024-12-20 14:46 | disposition home or self-care (01) ==
LOC: HO.HGI 13:09
PROVIDERS: PCP Internal Medicine; Visit Provider Nurse Practitioner
DX: K74.69 Other cirrhosis of liver (principal); K21.9 Gastro-esophageal reflux disease without esophagitis; K86.1 Other chronic pancreatitis; N94.89 Other specified conditions associated with female genital organs and menstrual cycle
CPT/HCPCS: 99213

== ENCOUNTER → 2024-12-20 13:08 | Outpatient (BNVA) | payer OTHER, SELFPAY | PROVIDERS: PCP Internal Medicine; Visit Provider Nurse Practitioner | DX: K21.9 Gastro-esophageal reflux disease without esophagitis (principal); K86.1 Other chronic pancreatitis; K74.69 Other cirrhosis of liver; R10.9 Unspecified abdominal pain; R11.2 Nausea with vomiting, unspecified; N94.89 Other specified conditions associated with female genital organs and menstrual cycle; M54.9 Dorsalgia, unspecified | CPT/HCPCS: 99212 ==

== ENCOUNTER 2024-12-28 13:17 | Outpatient (AMB) | payer OTHER, SELFPAY ==
--- NOTE | 2024-12-28 13:25 | A.OFFPC_ITS ---
Vital Signs 12/28/24 13:26 Height 4 ft 11 in Weight 134 lb BMI 27.1 BP 126/82 Blood Pressure Location Lt brachial Position Sitting Intake Visit Reasons: dm Intake Note: Patient here for a follow up DM Ticket Manager Required: No Accompanied by: Self / Same As Patient Allergies insulin glargine [From Lantus U-100 Insulin] Allergy (Severe, Verified 12/28/24 13:41) paralized nickel Allergy (Severe, Verified 12/28/24 13:41) Rash Penicillins Allergy (Severe, Verified 12/28/24 13:41) Hives acetaminophen [Percocet] Allergy (Intermediate, Verified 12/28/24 13:41) vomiting cyclobenzaprine [CYCLOBENZAPRINE] Allergy (Intermediate, Verified 12/28/24 13:41) HEADACHE,DIZZINESS divalproex sodium [Depakote] Allergy (Intermediate, Verified 12/28/24 13:41) increase liver enzymes methocarbamol [METHOCARBAMOL] Allergy (Intermediate, Verified 12/28/24 13:41) TICS oxycodone [From PERCOCET] Allergy (Intermediate, Verified 12/28/24 13:41) VOMITING insulin degludec [From Tresiba FlexTouch U-100] Adverse Reaction (Severe, Verified 12/28/24 13:41) loss of balance, body aches liraglutide [From Victoza] Adverse Reaction (Severe, Verified 12/28/24 13:41) hypoglycemia lisinopril Adverse Reaction (Severe, Verified 12/28/24 13:41) Dizziness risperidone [RISPERIDONE] Adverse Reaction (Severe, Verified 12/28/24 13:41) CHEST PAIN baclofen Adverse Reaction (Intermediate, Verified 12/28/24 13:41) Palpitations canagliflozin [Invokana] Adverse Reaction (Intermediate, Verified 12/28/24 13:41) confusion dulaglutide [Trulicity] Adverse Reaction (Intermediate, Verified 12/28/24 13:41) abdominal bloating, numbness, myalgia Narcotics Allergy (Mild, Uncoded 12/28/24 13:41) dizzy, sick Medication List - Last Reconciled 12/28/24 by An Aguilar MD alpha lipoic acid 600 mg PO BIDAC blood pressure monitor As directed blood-glucose meter As directed blood-glucose sensor (Dexcom G7 Sensor device) As directed carisoprodol 350 mg PO DAILY PRN 30 days cholecalciferol (vitamin D3) 25 mcg PO DAILY 90 days clotrimazole-betamethasone 1-0.05 % 1 appl topical BID 7 days cyanocobalamin (vitamin B-12) 1,000 mcg PO DAILY diazepam 10 mg PO BID PRN dulaglutide (Trulicity) 3 mg (0.5 mL) subcut QWEEK 90 days fenofibrate 54 mg PO DAILY 90 days flash glucose sensor (FreeStyle Avi 14 Day Sensor kit) As directed FreeStyle Lancets (lancets) three times daily NS FreeStyle Lite Meter (blood-glucose meter) test 3 times per day NS FreeStyle Lite Strips (blood sugar diagnostic) three times daily NS ibuprofen 600 mg PO TID PRN 90 days insulin lispro (Humalog KwikPen U-200 Insulin) 25 units (0.125 mL) subcut TID 90 days lidocaine 5% 1 patch topical DAILY melatonin ER 5 mg PO BEDTIME PRN mupirocin 2% 1 appl topical BID oxcarbazepine 150 mg PO DAILY oxcarbazepine 600 mg PO DAILY PRN pen needle, diabetic (Advocate Pen Needle) Use 1 pen needle once a day pen needle, diabetic As directed pen needle, diabetic, safety (Assure ID Pen Needle) Use 1 pen needle once a day tramadol 50 mg PO Q8H PRN 10 days vitamin B complex 1 tab PO DAILY Tobacco use date assessed: 10/03/24 Dental Screening Dental Screen Date: 10/03/24 HPI HPI Comments History of Present Illness Details The patient is a 64-year-old female presenting with poorly controlled Type 2 Diabetes Mellitus and arthritis pain. Her diabetes management has been complicated by difficulty in controlling blood glucose levels, with a recorded A1c of 14%. Previous insulin regimens have shown limited success, and she struggles with insurance in securing necessary medications. Regarding her musculoskeletal complaints, the patient suffers from osteoarthritis affecting both the knee and hip, leading to mobility issues. She has received cortisone injections, which exacerbated her blood sugar levels and affected her mood, prompting her to refrain from future cortisone therapy. Due to her compromised mobility, she has been provided a walker but mentions difficulties maneuvering it. Has been using Soma for years for her chronic neck pain and cervical radiculopathy which has made her pain tolerable. The patient is also experiencing hair loss and increased activity, which she believes may be linked to vitamin D levels or another undiagnosed endocrine condition. There is a planned visit with an weld lay out worker for further aden luation and blood workup. LDL goal should be less than 70 and lipid panel will be order. She has bipolar disorder and anxiety that has been stable. Cirrhosis is follow by Gastroenterology. [facility] Medical History Hyperlipidemia LDL goal <70 Encounter for well woman exam with routine gynecological exam Diabetes mellitus Physical exam Vaginal burning Vaginal itching Basilar migraine Acute vaginitis Encounter for annual routine gynecological examination Hospital discharge follow-up Shortness of breath COVID-19 Dysuria Vaginal irritation Herpes simplex virus (HSV) infection Intertrigo Diabetes mellitus Migraine with aura Hypertension Renal calculi Chest pain Mixed hyperlipidemia Fibromyalgia Chronic neck pain Nickel allergy Nickel dermatitis Polyarthralgia Surgical History H/O esophagogastroduodenoscopy History of prior ablation treatment History of discectomy History of laparoscopy History of tubal ligation History of colonoscopy History of laparoscopic cholecystectomy History of section Family History Father Prostate cancer Diabetes High cholesterol HTN (hypertension) Mother Liver problem Diabetes High cholesterol HTN (hypertension) Family/Other Diabetes High cholesterol HTN (hypertension) Cancer Social History Household Members: Children Household Members Other:: Son Housing: Apartment Alcohol intake: never Comment: pt refuses bed/chair alarm Patient Tobacco Use Status: Former Tobacco user Tobacco use type: Cigarette Years Smoked: 18 e-Cigarette/Vaping Use: Never Used Second Hand Smoke Exposure: No service: No Current occupational status: disabled Sexual orientation: Straight/Heterosexual Gender identity: Female Cognitive needs: No Hearing needs: No Vision needs: No Questionnaire Thrive Questionnaire Date Thrive assessed: 10/03/24 ABBY-7 AMB Questionnaire ABBY-7 Date ABBY - 7 assessed: 10/03/24 Source: Developed by Drs. Frank Kay, Drea Griggs, Diego Corcoran and colleagues, with an educational javier from [employer]. Review of Systems Const All systems reviewed & are unremarkable except as noted in HPI and below ENT Reports neck pain Card Denies chest pain at rest, Denies chest pain with activity, Denies edema, Denies irregular heart rhythm, Denies claudication, Denies dyspnea, Denies dyspnea on exertion, Denies orthopnea, Denies paroxysmal nocturnal dyspnea and Denies slow heart rate Resp Denies cough, Denies dyspnea and Denies dyspnea on exertion GI Denies abdominal pain, Denies change in bowel habits, Denies excessive flatus, Denies nausea and Denies vomiting Musc Reports back pain, Reports arthralgias, Reports limited range of motion, Reports muscle cramps and Reports neck pain Neuro Denies lack of coordination Physical exam (Primary Care) Vital Signs: Last Vital Signs BP 126/82 12/28/24 13:26 BMI result Body Mass Index 27.1 Tobacco/Smoking Status: Tobacco use Status Tobacco use date assessed 10/03/24 12/28/24 13:37 Patient Tobacco Use Status Former Tobacco user 12/28/24 13:37 Tobacco use type Cigarette 12/28/24 13:37 e-Cigarette/Vaping Use Never Used 12/28/24 13:37 Thrive Assessment: Date of Thrive Assessment Date Thrive assessed 10/03/24 12/28/24 13:37 Resp Effort & Inspection: normal respiratory effort Auscultation: clear to auscultation bilaterally Cardio Jugular venous distension: no JVD Rate: regular rate Rhythm: regular rhythm Heart sounds: S1 normal heart sound present and S2 normal heart sound present Extrem General: Yes full ROM Coding Level of Care Code Est Pt Level 4 (44189) Complex EM visit Add On G2211 Diagnoses Type 2 diabetes mellitus with hyperglycemia, with long-term current use of insulin E11.65; Z79.4 Diabetes mellitus type: type 2 Hyperlipidemia LDL goal <70 E78.5 ABBY (generalized anxiety disorder) F41.1 Bipolar affective disorder, remission status unspecified F31.9 Active/Remission status: remission status unspecified Other cirrhosis of liver K74.69 Hepatic cirrhosis type: other cirrhosis Time Spent (min) 24 Assessment & Plan Assessment & Plan (1) Diabetes mellitus with hyperglycemia, with long-term current use of insulin: Code(s): E11.65 - Type 2 diabetes mellitus with hyperglycemia; Z79.4 - terminal manager (current) use of insulin Category: Medical Qualifiers: Diabetes mellitus type: type 2 Qualified Code(s): E11.65 - Type 2 diabetes mellitus with hyperglycemia; Z79.4 - [facility] (current) use of insulin (2) Hyperlipidemia LDL goal <70: Code(s): E78.5 - Hyperlipidemia, unspecified Category: Medical (3) ABBY (generalized anxiety disorder): Code(s): F41.1 - Generalized anxiety disorder Category: Medical (4) Bipolar disorder: Code(s): F31.9 - Bipolar disorder, unspecified Category: Medical Qualifiers: Active/Remission status: remission status unspecified Qualified Code(s): F31.9 - Bipolar disorder, unspecified (5) Cirrhosis: Comment: BASELINE LABS 01/2018: Total bilirubin 0.6, alk-phos elevated at 134, AST/ALT 37/44, CURRENT LABS 08/03/2303/ 08:3013:[id number]:41 Estimated GFR > 60 Hgb A1c (Clinic) 14 H Total Bilirubin 0.8 AST 27 ALT 29 Alkaline Phosphatase 199 H TSH 3.10 ULTRASOUND OF THE ABDOMEN ORDERED BY PCP 12/10/23 FINDINGS: PANCREAS: Normal. ABDOMINAL AORTA: The proximal, mid, and distal segments are normal in caliber. INFERIOR VENA CAVA: Visualized portions are normal. LIVER: The liver is enlarged. The liver contour is normal. Diffusely increased liver echogenicity. No focal hepatic lesion. There is no intrahepatic biliary duct dilatation seen. GALLBLADDER: Surgically absent. COMMON BILE DUCT: Normal in caliber measuring 0.38 cm in diameter. RIGHT KIDNEY: Normal. No hydronephrosis. No renal calculi or focal parenchymal lesions. The kidney measures 10.6 cm in maximum dimension. LEFT KIDNEY: 1.6 cm simple appearing midpole cyst, stable. No hydronephrosis or renal calculi. The kidney measures 11.3 cm in maximum dimension. SPLEEN: Normal. The spleen measures 11.3 cm in maximum dimension. FREE FLUID: None. US/US abdomen complete IMPRESSION: 1. Diffusely increased liver echogenicity. This is a nonspecific finding but most suggestive of hepatic steatosis. Correlation with liver enzymes recommended. 2. Stable 1.6 cm left renal cyst. CT ABDOMEN AND PELVIS 08/01/23 FINDINGS: LUNG BASES: The visualized lung bases are unremarkable. LIVER, GALLBLADDER, AND BILIARY TREE: The liver is heterogeneous in attenuation and irregular in contour. There is no focal consolidation. There is no intrahepatic biliary duct dilatation. There has been a prior cholecystectomy. PANCREAS: Unremarkable. SPLEEN: Spleen is mildly enlarged measuring up to 14 cm. ADRENAL GLANDS: There bilateral adrenal gland thickening and a 1.4 cm left adrenal nodule.. KIDNEYS AND URETERS: The kidneys are normal in size, shape, and attenuation. There is a 3 mm nonobstructing calculus lower pole left kidney. There is a 1.7 cm cyst upper pole left kidney. There is no hydronephrosis. BLADDER: Unremarkable. GASTROINTESTINAL TRACT: The small and large bowel are unremarkable. The appendix is unremarkable. ABDOMINAL WALL: No significant hernia is appreciated. LYMPH NODES: Normal. VASCULAR: Unremarkable. PELVIC VISCERA: Unremarkable. OSSEOUS STRUCTURES: Unremarkable. CT/CT abdomen pelvis wo IV con IMPRESSION: Heterogeneous irregular liver consistent with hepatocellular disease/cirrhosis. There is mild associated splenomegaly. Obstructing calculus lower pole left kidney. Code(s): K74.60 - Unspecified cirrhosis of liver Category: Medical Qualifiers: Hepatic cirrhosis type: other cirrhosis Qualified Code(s): K74.69 - Other cirrhosis of liver Plan For continued diabetes management, emphasis was placed on achieving appropriate glycemic control while navigating insurance challenges. Cortisone injections will no longer be used given their effects on mood and blood sugar, and alternative pain management strategies for arthritis, including non- pharmacological methods, are to be considered. Planned endocrinology evaluation in January should provide further insights into possible endocrine-related complaints like hyperactivity and alopecia, with relevant lab tests already requested. Patient was informed and verbally consented to the use of an ambient scribe for clinic note documentation during this visit. I discussed the profound importance of advancing glycemic control with the patient, emphasizing negotiated strategies consistent with current insurance barriers. Management options were reviewed for arthritis, highlighting cortisone's drawbacks and the viability of other pain control alternatives. I reinforced the plan to evaluate endocrine etiologies at an upcoming specialist appointment. The patient's frustrations with insurance remain a significant challenge, and persistent communication with insurers and medication providers is underway to ensure access to care. Scheduled follow-up and necessary tests were confirmed, and anticipatory guidance on recognizing future complications or changes in condition was provided. Orders: Orders Lipid Panel Today E78.5 - Hyperlipidemia, unspecified Comprehensive [place]. Panel Fast Today E11.65 - Type 2 diabetes mellitus with hyperglycemia, Z79.4 - terminal manager (current) use of insulin Microalbumin, Random (w Creat) Today R80.9 - Proteinuria, unspecified Vitamin D 25-OH Total Today E55.9 - Vitamin D deficiency, unspecified Medications: Refilled carisoprodol 350 mg PO DAILY 30 days PRN 30 tabs 0RF Muscle Spasm Patient Instructions: - Continue current diabetes medications as prescribed. - Use walker for mobility as needed, remaining cautious of environmental hazards. - Avoid Tramadol and discuss alternatives with a pain wealth management consultant. - Attend your appointment with the weld lay out worker in January, and complete all required blood tests. - Contact your healthcare team for rising blood glucose levels or increased joint pain. - Follow up with your insurer and pharmacy to clarify medication approvals.
[2024-12-28 13:26] VITALS: BP 126/82; BMI 27.1
== END 2024-12-28 13:57 | disposition home or self-care (01) ==
LOC: HO.HMCH 13:18
PROVIDERS: PCP Internal Medicine; Visit Provider Internal Medicine
DX: E11.65 Type 2 diabetes mellitus with hyperglycemia (principal); Z79.4 Long term (current) use of insulin; K74.69 Other cirrhosis of liver; F31.9 Bipolar disorder, unspecified; F41.1 Generalized anxiety disorder; E78.5 Hyperlipidemia, unspecified

== ENCOUNTER → 2024-12-28 13:17 | Outpatient (BNVA) | payer OTHER, SELFPAY | PROVIDERS: PCP Internal Medicine; Visit Provider Internal Medicine | DX: E11.65 Type 2 diabetes mellitus with hyperglycemia (principal); E78.5 Hyperlipidemia, unspecified; F41.1 Generalized anxiety disorder; F31.9 Bipolar disorder, unspecified; K74.69 Other cirrhosis of liver; Z79.4 Long term (current) use of insulin | CPT/HCPCS: 99212 ==

== ENCOUNTER 2025-02-14 10:35 | Outpatient (AMB) | payer OTHER, SELFPAY ==
--- NOTE | 2025-02-14 10:42 | A.OFFVIS_ITS ---
Vital Signs 02/14/25 10:48 Height 4 ft 11 in Weight 141 lb 1.533 oz BMI 28.5 BP 102/74 Blood Pressure Location Rt brachial Position Sitting Pulse 100 Pulse Source Pulse Oximeter Pulse Oximetry (%) 98 Intake Visit Reasons: DM Intake Note: Patient presents today for a follow-up on Type 2 Diabetes Mellitus: Last Diabetic eye exam was on: DUE Last Podiatry exam was on: Patient does not see a Email Engineer Most recent HbA1c: 11.8%, 02/14/2025 Random Glucose- 323 mg/dL, Today Senior Property Manager Required: No Accompanied by: Self / Same As Patient Allergies insulin glargine [From Lantus U-100 Insulin] Allergy (Severe, Verified 02/14/25 10:43) paralized nickel Allergy (Severe, Verified 02/14/25 10:43) Rash Penicillins Allergy (Severe, Verified 02/14/25 10:43) Hives acetaminophen [Percocet] Allergy (Intermediate, Verified 02/14/25 10:43) vomiting cyclobenzaprine [CYCLOBENZAPRINE] Allergy (Intermediate, Verified 02/14/25 10:43) HEADACHE,DIZZINESS divalproex sodium [Depakote] Allergy (Intermediate, Verified 02/14/25 10:43) increase liver enzymes methocarbamol [METHOCARBAMOL] Allergy (Intermediate, Verified 02/14/25 10:43) TICS oxycodone [From PERCOCET] Allergy (Intermediate, Verified 02/14/25 10:43) VOMITING insulin degludec [From Tresiba FlexTouch U-100] Adverse Reaction (Severe, Verified 02/14/25 10:43) loss of balance, body aches liraglutide [From Victoza] Adverse Reaction (Severe, Verified 02/14/25 10:43) hypoglycemia lisinopril Adverse Reaction (Severe, Verified 02/14/25 10:43) Dizziness risperidone [RISPERIDONE] Adverse Reaction (Severe, Verified 02/14/25 10:43) CHEST PAIN baclofen Adverse Reaction (Intermediate, Verified 02/14/25 10:43) Palpitations canagliflozin [Invokana] Adverse Reaction (Intermediate, Verified 02/14/25 10:43) confusion dulaglutide [Trulicity] Adverse Reaction (Intermediate, Verified 02/14/25 10:43) abdominal bloating, numbness, myalgia Narcotics Allergy (Mild, Uncoded 02/14/25 10:43) dizzy, sick HPI Comments Details: This is a 63-year-old female with type 2 diabetes presenting for follow up Med Hx: bipolar disorder, cirrhosis, diabetes mellitus type 2 on long-term current use of insulin, hyperlipidemia, polyarthralgia 02/14/2025-11.8% improved from 14.0% No CGM: sensor was causing bleeding. Did not download meter today. Says she is still prone to low readings Current prescribed medications: Humalog 25 TID (reports compliance)-needs refill, compliant with Trulicity 3 weekly. She was prescribed Toujeo 10 qhs (never started). Did not like lantus. Past medications: actos (says gave her hypoglycemia), glipizide (says gave her hypoglycemia), Victoza (hypoglycemia), Tresiba (balance issues), Lantus (muscle weakness), SGLT-vaginal rash Micro/Macrovasular complications: neuropathy Eye exam due Podiatry-declines ROS CONSTITUTIONAL: Denies weight loss, fever and chills. HEENT: Denies changes in vision and hearing. RESPIRATORY: Denies SOB and cough. CV: Denies palpitations and CP GI: Denies abdominal pain, nausea, vomiting and diarrhea. Endorses chronic bloating : Denies dysuria and urinary frequency. MSK: Denies new myalgia and joint pain. SKIN: Denies rash and pruritus. NEUROLOGICAL: Denies headache PSYCHIATRIC: Denies recent changes in mood. PHYSICAL EXAM: GENERAL: Alert and oriented x 3. NAD EYES: EOMI. Anicteric. HENT: Moist mucous membranes. No scleral icterus. No cervical lymphadenopathy. LUNGS: Clear to auscultation bilaterally. CARDIOVASCULAR: Regular rate and rhythm. No murmur. No JVD. ABDOMEN: Soft, obese, non-tender +bs EXTREMITIES: No edema. Non-tender. SKIN: No rashes or lesions. Warm. NEUROLOGIC: No focal neurological deficits. CN II-XII grossly intact PSYCHIATRIC: Cooperative. Appropriate mood and affect [facility] Medical History Hyperlipidemia LDL goal <70 Encounter for well woman exam with routine gynecological exam Diabetes mellitus Physical exam Vaginal burning Vaginal itching Basilar migraine Acute vaginitis Encounter for annual routine gynecological examination Hospital discharge follow-up Shortness of breath COVID-19 Dysuria Vaginal irritation Herpes simplex virus (HSV) infection Intertrigo Diabetes mellitus Migraine with aura Hypertension Renal calculi Chest pain Mixed hyperlipidemia Fibromyalgia Chronic neck pain Nickel allergy Nickel dermatitis Polyarthralgia Surgical History H/O esophagogastroduodenoscopy History of prior ablation treatment History of discectomy History of laparoscopy History of tubal ligation History of colonoscopy History of laparoscopic cholecystectomy History of section Family History Father Prostate cancer Diabetes High cholesterol HTN (hypertension) Mother Liver problem Diabetes High cholesterol HTN (hypertension) Family/Other Diabetes High cholesterol HTN (hypertension) Cancer Social History Household Members: Children Household Members Other:: Son Housing: Apartment Alcohol intake: never Comment: pt refuses bed/chair alarm Patient Tobacco Use Status: Former Tobacco user Tobacco use type: Cigarette Years Smoked: 18 e-Cigarette/Vaping Use: Never Used Second Hand Smoke Exposure: No service: No Current occupational status: disabled Sexual orientation: Straight/Heterosexual Gender identity: Female Cognitive needs: No Hearing needs: No Vision needs: No Physical Exam Vital Signs: Last Vital Signs Pulse 100 02/14/25 10:48 BP 102/74 02/14/25 10:48 Pulse Ox 98 02/14/25 10:48 BMI result Body Mass Index 28.5 Results AMB Hemoglobin A1c AMB Hemoglobin A1c 11.8 % Last Edit by CHAI Reyes on 02/14/25 11:0 8 Assessment & Plan Assessment & Plan (1) Diabetes mellitus with hyperglycemia, with long-term current use of insulin: Code(s): E11.65 - Type 2 diabetes mellitus with hyperglycemia; Z79.4 - [facility] (current) use of insulin Category: Medical Qualifiers: Diabetes mellitus type: type 2 Qualified Code(s): E11.65 - Type 2 diabetes mellitus with hyperglycemia; Z79.4 - terminal system operator (current) use of insulin (2) Long-term current use of insulin for diabetes mellitus: Code(s): Z79.4 - terminal system operator (current) use of insulin; E11.9 - Type 2 diabetes mellitus without complications Category: Medical Plan 64 year old for follow up Uncontrolled diabetes, improving compliance and glycemic control since last visit Increase trulicity weekly Labs ordered. Trial of acarbose Continue current humalog dosing Orders: Orders AMB Hemoglobin A1c Today E11.65 - Type 2 diabetes mellitus with hyperglycemia, Z79.4 - terminal system operator (current) use of insulin Lipid Panel Today E11.65 - Type 2 diabetes mellitus with hyperglycemia, Z79.4 - [facility] (current) use of insulin Liver Fibrosis Pnl Today E11.65 - Type 2 diabetes mellitus with hyperglycemia, Z79.4 - [facility] (current) use of insulin Comprehensive Met. Panel Today E11.65 - Type 2 diabetes mellitus with hyperglycemia, Z79.4 - terminal system operator (current) use of insulin Medications: New acarbose 25 mg PO TID 270 tabs 3RF acarbose 25 mg PO TID 60 tabs 0RF Trulicity (dulaglutide) 4.5 mg (0.5 mL) subcut QWEEK 6 mL 3RF NS E11.65 - Type 2 diabetes mellitus with hyperglycemia, Z79.4 - terminal system operator (current) use of insulin Refilled insulin lispro (Humalog KwikPen U-200 Insulin) 25 units (0.125 mL) subcut TID 90 days 45 mL 3RF E11.65 - Type 2 diabetes mellitus with hyperglycemia, Z79.4 - [facility] (current) use of insulin Discontinued dulaglutide (Trulicity) Discontinued Reason: Duplicate 3 mg (0.5 mL) subcut QWEEK 90 days 6.5 mL 1RF E11.65 - Type 2 diabetes mellitus with hyperglycemia, Z79.4 - [facility] (current) use of insulin Coding Level of Care Code Est Pt Level 4 (80551) Diagnoses Type 2 diabetes mellitus with hyperglycemia, with long-term current use of insulin E11.65; Z79.4 Diabetes mellitus type: type 2 Long-term current use of insulin for diabetes mellitus Z79.4; E11.9
[2025-02-14 10:48] VITALS: BP 102/74; PULSE 100; O2SAT 98; BMI 28.5
[2025-02-14 10:56] LABS: Glucose, Whole Blood 323 mg/dL (60-115)
== END 2025-02-14 11:32 | disposition home or self-care (01) ==
LOC: HO.ENCR 10:35
PROVIDERS: PCP Internal Medicine; Visit Provider Internal Medicine
DX: E11.65 Type 2 diabetes mellitus with hyperglycemia (principal); Z79.4 Long term (current) use of insulin; E11.9 Type 2 diabetes mellitus without complications

== ENCOUNTER 2025-02-14 11:29 | Outpatient (REF) | payer OTHER, SELFPAY ==
[2025-02-14 13:32] LABS: Albumin Level 4.3 g/dL (3.5-5.0); Alkaline Phosphatase 165 U/L (39-117); Anion Gap 12 (12-20); Aspartate Amino Transferase 47 U/L (5-31); Blood Urea Nitrogen 10 mg/dL (9-16); Calcium 9.3 mg/dL (8.4-10.2); Carbon Dioxide 28 mmol/L (22-29); Chloride 101 mmol/L (96-108); Cholesterol 190 mg/dL (<200); Estimated Glomerular Filt Rate > 60; Glucose Random 344 mg/dL (60-115); HDL Cholesterol 44 mg/dL (>40); LDL Cholesterol Calculated 107 mg/dL (<100); Potassium 4.4 mmol/L (3.3-5.1); Sodium 137 mmol/L (135-145); Total Protein 7.4 g/dL (6.5-8.0); Triglycerides 196 mg/dL (<150)
[2025-02-14 14:06] LABS: Alanine Aminotransferase 49 U/L (0-31)
[2025-02-21 16:23] LABS: FIB-ALT 36 U/L (6-29); FIB-Alpha-2-Macroglobulin 355 mg/dL (106-279); FIB-Apolipoprotein A1 166 mg/dL (101-198); FIB-GGT 135 U/L (3-65); FIB-Haptoglobin 41 mg/dL (43-212); FIB-Total Bilirubin 0.6 mg/dL (0.2-1.2); Liver Fibrosis Score 0.77; Liver Fibrosis Stage F4; Nec Inflam Act Grade A1; Nec Inflam Act Score 0.32
== END 2025-02-14 11:30 | disposition home or self-care (01) ==
LOC: HO.10HDL 11:29
PROVIDERS: Visit Provider Internal Medicine
DX: E11.65 Type 2 diabetes mellitus with hyperglycemia (principal); Z79.4 Long term (current) use of insulin
CPT/HCPCS: 36415; 80053; 80061; 81596; 82947; 83036; 99212

== ENCOUNTER 2025-03-21 12:02 | Outpatient (AMB) | payer OTHER, SELFPAY ==
--- NOTE | 2025-03-21 12:43 | A.OFFVIS_ITS ---
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 Post Carrier Most recent HbA1c: 11.8%, 02/14/2025 Random Glucose- 264 mg/dL, Today Locomotive Firer Required: No Accompanied by: Self / Same As Patient Allergies insulin glargine (From Lantus U-100 Insulin) Allergy (Severe, Verified 03/21/25 12:44) paralized nickel Allergy (Severe, Verified 03/21/25 12:44) Rash Penicillins Allergy (Severe, Verified 03/21/25 12:44) Hives acetaminophen (Percocet) Allergy (Intermediate, Verified 03/21/25 12:44) vomiting cyclobenzaprine (CYCLOBENZAPRINE) Allergy (Intermediate, Verified 03/21/25 12:44) HEADACHE,DIZZINESS divalproex sodium (Depakote) Allergy (Intermediate, Verified 03/21/25 12:44) increase liver enzymes methocarbamol (METHOCARBAMOL) Allergy (Intermediate, Verified 03/21/25 12:44) TICS oxycodone (From PERCOCET) Allergy (Intermediate, Verified 03/21/25 12:44) VOMITING insulin degludec (From Tresiba FlexTouch U-100) Adverse Reaction (Severe, Verified 03/21/25 12:44) loss of balance, body aches liraglutide (From Victoza) Adverse Reaction (Severe, Verified 03/21/25 12:44) hypoglycemia lisinopril Adverse Reaction (Severe, Verified 03/21/25 12:44) Dizziness risperidone (RISPERIDONE) Adverse Reaction (Severe, Verified 03/21/25 12:44) CHEST PAIN baclofen Adverse Reaction (Intermediate, Verified 03/21/25 12:44) Palpitations canagliflozin (Invokana) Adverse Reaction (Intermediate, Verified 03/21/25 12:44) confusion dulaglutide (Trulicity) Adverse Reaction (Intermediate, Verified 03/21/25 12:44) abdominal bloating, numbness, myalgia Narcotics Allergy (Mild, Uncoded 03/21/25 12:44) dizzy, sick HPI Comments Details: This is a 63-year-old female with type 2 diabetes presenting for follow up Med Hx: bipolar disorder, cirrhosis, diabetes mellitus type 2 on long-term current use of insulin, hyperlipidemia, polyarthralgia 02/14/2025-11.8% improved from 14.0% No CGM: sensor was causing bleeding. Did not download meter today. Says she is still prone to low readings Current prescribed medications: Humalog 25 TID (reports compliance)-needs refill, increased Trulicity 4.5 weekly 5 weeks ago. She reports her blood sugars have been good since increasing the trulicity. She has been stress eating and has gained some weight She was prescribed Toujeo 10 qhs (never started). Did not like lantus. Past medications: acarbose, actos (says gave her hypoglycemia), glipizide (says gave her hypoglycemia), Victoza (hypoglycemia), Tresiba (balance issues), Lantus (muscle weakness), SGLT-vaginal rash, metformin -GI side effects. Micro/Macrovasular complications: neuropathy Eye exam due Podiatry-declines ROS CONSTITUTIONAL: Denies weight loss, fever and chills. HEENT: Denies changes in vision and hearing. RESPIRATORY: Denies SOB and cough. CV: Denies palpitations and CP GI: Denies abdominal pain, nausea, vomiting and diarrhea : Denies dysuria and urinary frequency. MSK: Denies new myalgia and joint pain. SKIN: Denies rash and pruritus. NEUROLOGICAL: Denies headache PSYCHIATRIC: Denies recent changes in mood. PHYSICAL EXAM: GENERAL: Alert and oriented x 3. NAD EYES: EOMI. Anicteric. HENT: Moist mucous membranes. No scleral icterus. No cervical lymphadenopathy. LUNGS: Clear to auscultation bilaterally. CARDIOVASCULAR: Regular rate and rhythm. No murmur. No JVD. ABDOMEN: Soft, obese, non-tender +bs EXTREMITIES: No edema. Non-tender. SKIN: No rashes or lesions. Warm. NEUROLOGIC: No focal neurological deficits. CN II-XII grossly intact PSYCHIATRIC: Cooperative. Appropriate mood and affect [facility] Medical History Hyperlipidemia LDL goal <70 Encounter for well woman exam with routine gynecological exam Diabetes mellitus Physical exam Vaginal burning Vaginal itching Basilar migraine Acute vaginitis Encounter for annual routine gynecological examination Hospital discharge follow-up Shortness of breath COVID-19 Dysuria Vaginal irritation Herpes simplex virus (HSV) infection Intertrigo Diabetes mellitus Migraine with aura Hypertension Renal calculi Chest pain Mixed hyperlipidemia Fibromyalgia Chronic neck pain Nickel allergy Nickel dermatitis Polyarthralgia Surgical History H/O esophagogastroduodenoscopy History of prior ablation treatment History of discectomy History of laparoscopy History of tubal ligation History of colonoscopy History of laparoscopic cholecystectomy History of section Family History Father Prostate cancer Diabetes High cholesterol HTN (hypertension) Mother Liver problem Diabetes High cholesterol HTN (hypertension) Family/Other Diabetes High cholesterol HTN (hypertension) Cancer Social History Household Members: Children Household Members Other:: Son Housing: Apartment Alcohol intake: never Comment: pt refuses bed/chair alarm Patient Tobacco Use Status: Former Tobacco user Tobacco use type: Cigarette Years Smoked: 18 e-Cigarette/Vaping Use: Never Used Second Hand Smoke Exposure: No service: No Current occupational status: disabled Sexual orientation: Straight/Heterosexual Gender identity: Female Cognitive needs: No Hearing needs: No Vision needs: No Physical Exam Vital Signs: Last Vital Signs Pulse 95 03/21/25 12:44 BP 152/86 H 03/21/25 12:44 Pulse Ox 96 03/21/25 12:44 Oxygen Delivery Method Room Air 03/21/25 12:44 BMI result Body Mass Index 28.9 Assessment & Plan Assessment & Plan (1) Diabetes mellitus with hyperglycemia, with long-term current use of insulin: Code(s): E11.65 - Type 2 diabetes mellitus with hyperglycemia; Z79.4 - half-way (current) use of insulin Category: Medical Qualifiers: Diabetes mellitus type: type 2 Qualified Code(s): E11.65 - Type 2 diabetes mellitus with hyperglycemia; 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 No med changes. She will return in 2 months or sooner as needed Coding Level of Care Code Est Pt Level 3 (59044) Diagnoses Type 2 diabetes mellitus with hyperglycemia, with long-term current use of insulin E11.65; Z79.4 Diabetes mellitus type: type 2
[2025-03-21 12:44] VITALS: BP 152/86; PULSE 95; O2SAT 96; BMI 28.9
[2025-03-21 13:05] LABS: Glucose, Whole Blood 264 mg/dL (60-115)
== END 2025-03-21 13:21 | disposition home or self-care (01) ==
LOC: HO.ENCR 12:02
PROVIDERS: PCP Internal Medicine; Visit Provider Internal Medicine
DX: E11.65 Type 2 diabetes mellitus with hyperglycemia (principal); Z79.4 Long term (current) use of insulin

== ENCOUNTER → 2025-03-21 12:02 | Outpatient (BNVA) | payer OTHER, SELFPAY | PROVIDERS: PCP Internal Medicine; Visit Provider Internal Medicine | DX: E11.65 Type 2 diabetes mellitus with hyperglycemia (principal); Z79.4 Long term (current) use of insulin | CPT/HCPCS: 82947; 99212 ==

== ENCOUNTER 2025-04-20 19:45 | Emergency (ER) | payer OTHER, SELFPAY ==
[2025-04-20 19:54] VITALS: BP 123/56; PULSE 100; RESP 18; TEMP 36.3; O2SAT 100; BMI 27.5
[2025-04-20 20:18] LABS: Hematocrit 44.0 % (37.0-47.0); Hemoglobin 15.3 g/dl (12.0-16.0); Imm Gran Abs Auto 0.01 X10*3/uL (0.00-0.03); Imm Gran Pct Auto 0.2 % (0.0-0.4); Lymphocytes Absolute Auto 2.5 X10*3/uL (1.2-4.9); MANUAL DIFF FLAG NO; Mean Corpuscular HGB Conc 34.8 g/dl (31.0-35.0); Mean Corpuscular Hemoglobin 29.9 pg (27.0-33.0); Mean Corpuscular Volume 86.1 fL (80.0-98.0); NRBC Abs Auto 0.000 X10*3/uL (0.0-0.012); NRBC Pct Auto 0.0 /100WBC (0.0-0.2); Platelet Count 185 X10*3/uL (160-400); Red Blood Count 5.11 X10*6/uL (4.20-5.50); White Blood Count 5.9 X10*3/uL (4.8-10.8)
[2025-04-20 20:49] LABS: Alanine Aminotransferase 51 U/L (0-31); Albumin Level 4.2 g/dL (3.5-5.0); Alkaline Phosphatase 184 U/L (39-117); Anion Gap 14 (12-20); Aspartate Amino Transferase 44 U/L (5-31); Blood Urea Nitrogen 13 mg/dL (9-16); Calcium 9.8 mg/dL (8.4-10.2); Carbon Dioxide 25 mmol/L (22-29); Chloride 102 mmol/L (96-108); Creatinine Clr Calc Pharmacy 62.1; Estimated Glomerular Filt Rate > 60; Magnesium 1.9 mg/dL (1.6-2.6); Potassium 4.2 mmol/L (3.3-5.1); Sodium 137 mmol/L (135-145); Total Protein 7.7 g/dL (6.5-8.0)
[2025-04-20 21:20] LABS: Appearance Urine Clear; Glucose Urine UA >=1000 mg/dL (Negative); PH 7.0 (5.0-9.0); Specific Gravity - Urine >= 1.030 (1.005-1.025); UMIC TRIGGER UACC YES
[2025-04-20 21:25] LABS: UACC Culture Trigger YES
--- NOTE | 2025-04-20 23:15 | ED.GENADULT ---
HPI - General Adult General Chief complaint: General Medical Stated complaint: B/L Leg numbness Time Seen by Provider: 04/20/25 21:34 Source: patient Limitations: no limitations History of Present Illness ED Provider: Janki Bourne PA-C HPI narrative: 64-year-old female with a history of diabetes, hyperlipidemia, hypertension, fibromyalgia, polyarthralgia, GERD, anxiety, bipolar disorder who presents with ongoing pain and tingling sensation to bilateral lower extremities. Patient states she feels as if her legs are ?restless at times?. Patient has been having symptoms of unclear duration, she has a pending follow up appointment with her primary care provider. Denies swelling, redness or warmth to the extremities. Denies cool pale limb. Denies new activity or back pain that could have precipitated her symptoms. Denies urinary retention, bowel incontinence or weakness of lower extremities. Related Data Home Medications ?Medication ?Instructions ?Recorded ?Confirmed diazepam 10 mg tablet 10 mg PO BID PRN Muscle Spasm 09/03/20 12/28/24 alpha lipoic acid 600 mg capsule 600 mg PO BIDAC 03/01/22 12/28/24 cyanocobalamin (vitamin B-12) 1,000 mcg PO DAILY 03/01/22 12/28/24 1,000 mcg tablet vitamin B complex 1 tab PO DAILY 03/01/22 12/28/24 oxcarbazepine 150 mg tablet 150 mg PO DAILY 02/17/24 12/28/24 melatonin 10 mg tablet,extended 5 mg PO BEDTIME PRN 07/19/24 12/28/24 release oxcarbazepine 600 mg tablet 600 mg PO DAILY PRN 12/20/24 12/28/24 Previous Rx's ?Medication ?Instructions ?Recorded blood-glucose meter #1 ea 07/31/20 ibuprofen 600 mg tablet 600 mg PO TID PRN pain 90 days 07/30/22 #270 tabs blood pressure monitor #1 ea 03/11/23 blood-glucose sensor (VoloMetrixcom G7 #1 ea 09/07/23 Sensor device) mupirocin 2 % topical ointment 1 appl topical BID #15 grams 02/03/24 flash glucose sensor (FreeStyle #1 ea 03/14/24 Avi 14 Day Sensor kit) pen needle, diabetic 31 gauge x #50 ea 03/14/2412/03 pen needle, diabetic 31 gauge x #100 ea 03/14/24 5/16 (Advocate Pen Needle) pen needle, diabetic, safety 30 #100 ea 03/14/24 gauge x 5/16 (Assure ID Pen Needle) FreeStyle Lancets 28 gauge #300 ea 05/25/24 (lancets) FreeStyle Lite Meter #1 ea 05/25/24 (blood-glucose meter) FreeStyle Lite Strips (blood sugar #300 ea 05/25/24 diagnostic) clotrimazole-betamethasone 1 1 appl topical BID itching 7 days 07/07/24 %-0.05 % topical cream #45 grams fenofibrate 54 mg tablet 54 mg PO DAILY 90 days #90 tabs 10/03/24 tramadol 50 mg tablet 50 mg PO Q8H PRN pain 10 days #30 11/03/24 tabs lidocaine 5 % topical patch 1 patch topical DAILY #15 ea 11/15/24 cholecalciferol (vitamin D3) 25 25 mcg PO DAILY 90 days #90 caps 02/04/25 mcg (1,000 unit) capsule Trulicity 4.5 mg/0.5 mL 4.5 mg (0.5 mL) subcut QWEEK #6 mL 02/14/25 subcutaneous pen injector (dulaglutide) acarbose 25 mg tablet 25 mg PO TID #270 tabs 02/14/25 insulin lispro 200 unit/mL (3 mL) 25 unit (0.125 mL) subcut TID 90 02/14/25 subcutaneous pen (Humalog #45 mL U-200 Insulin) carisoprodol 350 mg tablet 350 mg PO DAILY PRN Muscle Spasm 02/21/25 30 days #30 tabs gabapentin 300 mg capsule 300 mg PO TID #30 caps 04/20/25 tizanidine 4 mg capsule 4 mg PO BEDTIME PRN muscle 04/20/25 spasticity #7 caps Allergies Allergy/AdvReac Type Severity Reaction Status Date / Time insulin glargine (From Allergy Severe paralized Verified 04/20/25 20:01 Lantus U-100 Insulin) nickel Allergy Severe Rash Verified 04/20/25 20:01 Penicillins Allergy Severe Hives Verified 04/20/25 20:01 acetaminophen (Percocet) Allergy Intermediate vomiting Verified 04/20/25 20:01 cyclobenzaprine Allergy Intermediate HEADACHE,DI Verified 04/20/25 20:01 (CYCLOBENZAPRINE) ZZINESS divalproex sodium (Depakote) Allergy Intermediate increase Verified 04/20/25 20:01 liver enzymes methocarbamol (METHOCARBAMOL) Allergy Intermediate TICS Verified 04/20/25 20:01 oxycodone (From PERCOCET) Allergy Intermediate VOMITING Verified 04/20/25 20:01 insulin degludec (From AdvReac Severe loss of Verified 04/20/25 20:01 Tresiba FlexTouch U-100) balance, body aches liraglutide (From Victoza) AdvReac Severe hypoglycemi Verified 04/20/25 20:01 a lisinopril AdvReac Severe Dizziness Verified 04/20/25 20:01 risperidone (RISPERIDONE) AdvReac Severe CHEST PAIN Verified 04/20/25 20:01 baclofen AdvReac Intermediate Palpitation Verified 04/20/25 20:01 s canagliflozin (Invokana) AdvReac Intermediate confusion Verified 04/20/25 20:01 dulaglutide (Trulicity) AdvReac Intermediate abdominal Verified 04/20/25 20:01 bloating, numbness, myalgia Narcotics Allergy Mild dizzy, sick Uncoded 04/20/25 20:01 PMFSH Past Medical History Medical History Hyperlipidemia LDL goal <70 Encounter for well woman exam with routine gynecological exam Diabetes mellitus Physical exam Vaginal burning Vaginal itching Basilar migraine Acute vaginitis Encounter for annual routine gynecological examination Hospital discharge follow-up Shortness of breath COVID-19 Dysuria Vaginal irritation Herpes simplex virus (HSV) infection Intertrigo Diabetes mellitus Migraine with aura Hypertension Renal calculi Chest pain Mixed hyperlipidemia Fibromyalgia Chronic neck pain Nickel allergy Nickel dermatitis Polyarthralgia Surgical History H/O esophagogastroduodenoscopy History of prior ablation treatment History of discectomy History of laparoscopy History of tubal ligation History of colonoscopy History of laparoscopic cholecystectomy History of section Family History Family History Father Prostate cancer Diabetes High cholesterol HTN (hypertension) Mother Liver problem Diabetes High cholesterol HTN (hypertension) Family/Other Diabetes High cholesterol HTN (hypertension) Cancer Social History Social History Household Members: Children Household Members Other:: Son Housing: Apartment Alcohol intake: never Comment: pt refuses bed/chair alarm Patient Tobacco Use Status: Former Tobacco user Tobacco use type: Cigarette Years Smoked: 18 e-Cigarette/Vaping Use: Never Used Second Hand Smoke Exposure: No Use of substances other than those prescribed or required for medical reasons: No Advance Directives: No Advance Directives Information Provided: No Do you have a plan to hurt others: No Plan Patient : No service: No Current occupational status: disabled Sexual orientation: Straight/Heterosexual Gender identity: Female Cognitive needs: No Hearing needs: No Vision needs: No Physical Exam ED Vital Signs: Vital Signs - 24 hr 04/20/25 19:54 Temperature 97.3 F Pulse Rate 100 Respiratory Rate 18 Blood Pressure 123/56 L Pulse Oximetry 100 Oxygen Delivery Method Room Air BMI result Body Mass Index 27.5 Medications Administered Discontinued Medications Generic Name Dose Route Start Last Admin Trade Name Freq PRN Reason Stop Dose Admin Diazepam 2 mg 04/20/25 23:10 04/20/25 23:32 Diazepam 2 Mg Tablet PO 04/20/25 23:11 2 mg ONCE ONE Administration Gabapentin 300 mg 04/20/25 22:41 04/20/25 23:32 Gabapentin 300 Mg Capsule PO 04/20/25 22:42 300 mg ONCE ONE Administration Sodium Chloride 1,000 mls @ 999 mls/hr 04/20/25 21:45 04/20/25 23:32 Ns IV 04/20/25 22:45 Infused .Q1H1M RENITA Infusion Medical Decision Making Medical Decision Making MDM Narrative: 64-year-old female with a history of diabetes, hyperlipidemia, hypertension, fibromyalgia, polyarthralgia, GERD, anxiety, bipolar disorder who presents with ongoing pain and tingling sensation to bilateral lower extremities. Patient states she feels as if her legs are ?restless at times?. Patient has been having symptoms of unclear duration, she has a pending follow up appointment with her primary care provider. Denies swelling, redness or warmth to the extremities. Denies cool pale limb. Denies new activity or back pain that could have precipitated her symptoms. Denies urinary retention, bowel incontinence or weakness of lower extremities. Problem: Psychiatric illness, fibromyalgia, diabetes History: Per patient I have considered the following differential diagnoses: Restless leg syndrome, peripheral neuropathy, cellulitis, claudication , DVT Plan: The patient is here with symptoms of neuropathy, she has been on gabapentin before, there was no evidence of cellulitis on exam, she is not having symptoms of claudication. There was no objective swelling of the legs. We will send with home care instructions and a script for gabapentin and a muscle relaxant. There may also be an element of restless legs syndrome as well. She essentially requires follow up with primary care I have independently reviewed the following tests: Labs: No leukocytosis, not anemic, no electrolyte abnormality, hyperglycemic but no gap Lab Data 04/20/25 20:06 04/20/25 20:06 Labs: Lab Results 04/20/25 04/20/25 Range/Units 20:06 21:13 WBC 5.9 (4.8-10.8) X10*3/uL RBC 5.11 (4.20-5.50) X10*6/uL Hgb 15.3 (12.0-16.0) g/dl Hct 44.0 (37.0-47.0) % MCV 86.1 (80.0-98.0) fL MCH 29.9 (27.0-33.0) pg MCHC 34.8 (31.0-35.0) g/dl RDW 12.3 (11.0-16.0) % Plt Count 185 (160-400) X10*3/uL MPV 11.5 (9.4-12.3) fL Immature Gran % (Auto) 0.2 (0.0-0.4) % Neut % (Auto) 50.2 (45-73) % Lymph % (Auto) 41.8 H (20-40) % [place] % (Auto) 5.6 (2-11) % Eos % (Auto) 1.9 (0-4) % Baso % (Auto) 0.3 (0-2) % Lymph # (Auto) 2.5 (1.2-4.9) X10*3/uL [place] # (Auto) 0.3 (0.1-1.2) X10*3/uL Eos # (Auto) 0.1 (0.0-0.4) X10*3/uL Baso # (Auto) 0.0 (0.0-0.2) X10*3/uL Abs Immat Gran (auto) 0.01 (0.00-0.03) X10*3/uL Absolute Neuts (auto) 3.0 (2.0-8.3) x10*3/uL Absolute Nucleated RBC 0.000 (0.0-0.012) X10*3/uL Nucleated RBC % (auto) 0.0 (0.0-0.2) /100WBC Sodium 137 (135-145) mmol/L Potassium 4.2 (3.3-5.1) mmol/L Chloride 102 (96-108) mmol/L Carbon Dioxide 25 (22-29) mmol/L Anion Gap 14 (12-20) BUN 13 (9-16) mg/dL Creatinine 0.74 (0.5-1.4) mg/dL Estim Creat Clear Calc 62.1 Estimated GFR > 60 Random Glucose 472 H* (60-115) mg/dL Calcium 9.8 (8.4-10.2) mg/dL Magnesium 1.9 (1.6-2.6) mg/dL Total Bilirubin 0.8 (0.0-1.0) mg/dL AST 44 H (5-31) U/L ALT 51 H (0-31) U/L Alkaline Phosphatase 184 H (39-117) U/L Total Protein 7.7 (6.5-8.0) g/dL Albumin 4.2 (3.5-5.0) g/dL Urine Color Yellow Urine Appearance Clear Urine pH 7.0 (5.0-9.0) Ur Specific [place] >= 1.030 H (1.005-1.025) Urine Protein Negative (Neg-Trace) mg/dL Urine Glucose (UA) >=1000 H (Negative) mg/dL Urine Ketones Negative (Negative) mg/dL Urine Blood Negative (Negative) Urine Nitrite Negative (Negative) Ur Leukocyte Esterase Negative (Negative) Urine RBC 0-2 (0-2) /HPF Urine WBC 6-10 H (0-5) /HPF Ur Squamous Epith Cells 0-2 (0-2) /HPF Urine Bacteria None Seen (None Seen) Hyaline Casts 0-2 (0-2) /LPF Discharge Plan Discharge Clinical Impression: Neuropathy, Hyperglycemia Patient Disposition: Home, Self-Care Instructions: Meal Planning with Diabetes Exchanges (DC), Peripheral Neuropathy (ED), Diabetic Hyperglycemia (ED) Additional Instructions: Your blood sugar was elevated, however you had no associated lab abnormalities. It is important to keep proper blood sugar control. Be sure to take your medications as directed, be sure to eat a diabetic diet. In regard to your bilateral leg pain with numbness/ tingling sensation, this is called peripheral neuropathy, this is a consequence of diabetes. See home care instructions. Take the gabapentin as directed. Use the tizanidine at night for further breakthrough pain. Be sure to keep your pending follow up appointment with your primary care provider, if these medications are effective, they can continue to refill your prescription. Prescriptions: New gabapentin 300 mg capsule 300 mg PO TID Qty: 30 0RF tizanidine 4 mg capsule 4 mg PO BEDTIME PRN (Reason: muscle spasticity) Qty: 7 0RF No Action (DME) blood-glucose meter Kit See Rx Instructions .ROUTE .MEDSUPPLY Qty: 1 0RF Rx Instructions: As directed ibuprofen 600 mg tablet 600 mg PO TID PRN (Reason: pain) 90 Days Qty: 270 3RF (DME) blood pressure monitor Kit See Rx Instructions .ROUTE .MEDSUPPLY Qty: 1 0RF Rx Instructions: As directed (DME) Dexcom G7 Sensor Device See Rx Instructions .Route Qty: 1 11RF Rx Instructions: As directed (DME) pen needle, diabetic 31 gauge x 3/16 needle See Rx Instructions topical QID Qty: 50 11RF Rx Instructions: As directed (DME) FreeStyle Avi 14 Day Sensor Kit See Rx Instructions .Route Qty: 1 11RF Rx Instructions: As directed (DME) pen needle, diabetic [Advocate Pen Needle] 31 gauge x 5/16 needle See Rx Instructions .Route Qty: 100 3RF Rx Instructions: Use 1 pen needle once a day (DME) Assure ID Pen Needle 30 gauge x 5/16 needle See Rx Instructions .ROUTE .MEDSUPPLY Qty: 100 6RF Rx Instructions: Use 1 pen needle once a day tramadol 50 mg tablet 50 mg PO Q8H PRN (Reason: pain) 10 Days Qty: 30 0RF cholecalciferol (vitamin D3) 25 mcg (1,000 unit) capsule 25 mcg PO DAILY 90 Days Qty: 90 1RF carisoprodol 350 mg tablet 350 mg PO DAILY PRN (Reason: Muscle Spasm) 30 Days Qty: 30 0RF cyanocobalamin (vitamin B-12) 1,000 mcg Tablet 1,000 mcg PO DAILY vitamin B complex Tablet 1 tab PO DAILY alpha lipoic acid 600 mg Capsule 600 mg PO BIDAC mupirocin 2 % ointment 1 appl topical BID Qty: 15 0RF diazepam 10 mg tablet 10 mg PO BID PRN (Reason: Muscle Spasm) (DME) blood-glucose meter [FreeStyle Lite Meter] Kit See Rx Instructions .Route Qty: 1 0RF Rx Instructions: test 3 times per day (DME) FreeStyle Lite Strips Strip See Rx Instructions .ROUTE .COMPLEX Qty: 300 3RF Dose Instruction: DIRECTED Rx Instructions: three times daily (DME) lancets [FreeStyle Lancets] 28 gauge misc See Rx Instructions .Route Qty: 300 3RF Rx Instructions: three times daily fenofibrate 54 mg tablet 54 mg PO DAILY 90 Days Qty: 90 1RF lidocaine 5 % adhesive patch,medicated 1 patch topical DAILY Qty: 15 0RF Rx Instructions: leave on most painful area for up to 12 hrs oxcarbazepine 150 mg tablet 150 mg PO DAILY oxcarbazepine 600 mg tablet 600 mg PO DAILY PRN melatonin 10 mg tablet extended release 5 mg PO BEDTIME PRN clotrimazole-betamethasone 1-0.05 % cream 1 appl topical BID 7 Days Qty: 45 0RF Rx Instructions: Not to be combined with other topical corticosteroids. Humalog KwikPen Insulin 200 unit/mL (3 mL) insulin pen 25 unit subcut TID 90 Days Qty: 45 3RF Trulicity 4.5 mg/0.5 mL pen injector 4.5 mg subcut QWEEK Qty: 6 3RF acarbose 25 mg tablet 25 mg PO TID Qty: 270 3RF Interventions: ED Discharge Assessment Last Done: 04/20/25 23:26 Discharge Date/Time: 04/20/25 23:46 Print Language: Irish
[2025-04-20 23:26] VITALS: BP 123/56; PULSE 100; RESP 18; TEMP 36.3; O2SAT 100
== END 2025-04-20 23:46 | disposition home or self-care (01) ==
PROVIDERS: Emergency Provider Emergency Medicine; PCP Internal Medicine
DX: G62.9 Polyneuropathy, unspecified (principal); R20.2 Paresthesia of skin; E11.65 Type 2 diabetes mellitus with hyperglycemia; M79.605 Pain in left leg; M79.604 Pain in right leg; I10 Essential (primary) hypertension; E78.5 Hyperlipidemia, unspecified; K21.9 Gastro-esophageal reflux disease without esophagitis; F31.9 Bipolar disorder, unspecified
CPT/HCPCS: 36415; 80053; 81001; 83735; 85025; 87086; 87147; 96360; 96361; 99284

== ENCOUNTER 2025-05-09 13:24 | Outpatient (AMB) | payer OTHER, SELFPAY ==
--- NOTE | 2025-05-09 13:28 | A.OFFPC_ITS ---
Vital Signs 05/09/25 13:31 Height 4 ft 11 in Weight 144 lb 9.972 oz BMI 29.2 BP 120/74 Blood Pressure Location Lt brachial Position Sitting Respiration 18 Pulse 88 Pulse Source Pulse Oximeter Temp 97.3 F Temp Source Temporal Artery Scan Pulse Oximetry (%) 99 Oxygen Delivery Method Room Air Intake Visit Reasons: dm Fretted Instrument Inspector Required: No Accompanied by: Self / Same As Patient Allergies insulin glargine (From Lantus U-100 Insulin) Allergy (Severe, Verified 05/09/25 14:09) paralized nickel Allergy (Severe, Verified 05/09/25 14:09) Rash Penicillins Allergy (Severe, Verified 05/09/25 14:09) Hives acetaminophen (Percocet) Allergy (Intermediate, Verified 05/09/25 14:09) vomiting cyclobenzaprine (CYCLOBENZAPRINE) Allergy (Intermediate, Verified 05/09/25 14:09) HEADACHE,DIZZINESS divalproex sodium (Depakote) Allergy (Intermediate, Verified 05/09/25 14:09) increase liver enzymes methocarbamol (METHOCARBAMOL) Allergy (Intermediate, Verified 05/09/25 14:09) TICS oxycodone (From PERCOCET) Allergy (Intermediate, Verified 05/09/25 14:09) VOMITING insulin degludec (From Tresiba FlexTouch U-100) Adverse Reaction (Severe, Verified 05/09/25 14:09) loss of balance, body aches liraglutide (From Victoza) Adverse Reaction (Severe, Verified 05/09/25 14:09) hypoglycemia lisinopril Adverse Reaction (Severe, Verified 05/09/25 14:09) Dizziness risperidone (RISPERIDONE) Adverse Reaction (Severe, Verified 05/09/25 14:09) CHEST PAIN baclofen Adverse Reaction (Intermediate, Verified 05/09/25 14:09) Palpitations canagliflozin (Invokana) Adverse Reaction (Intermediate, Verified 05/09/25 14:09) confusion dulaglutide (Trulicity) Adverse Reaction (Intermediate, Verified 05/09/25 14:09) abdominal bloating, numbness, myalgia Narcotics Allergy (Mild, Uncoded 05/09/25 14:09) dizzy, sick Medication List - Last Reconciled 05/09/25 by An Aguilar MD acarbose 25 mg PO TID alpha lipoic acid 600 mg PO BIDAC blood pressure monitor As directed blood-glucose meter As directed blood-glucose sensor ([employer] G7 Sensor device) As directed carisoprodol 350 mg PO DAILY PRN 30 days cholecalciferol (vitamin D3) 25 mcg PO DAILY 90 days clotrimazole-betamethasone 1-0.05 % 1 appl topical BID 7 days cyanocobalamin (vitamin B-12) 1,000 mcg PO DAILY diazepam 10 mg PO BID PRN fenofibrate 54 mg PO DAILY 90 days flash glucose sensor (FreeStyle Avi 14 Day Sensor kit) As directed FreeStyle Lancets (lancets) three times daily NS FreeStyle Lite Meter (blood-glucose meter) test 3 times per day NS FreeStyle Lite Strips (blood sugar diagnostic) three times daily NS gabapentin 300 mg PO TID ibuprofen 600 mg PO TID PRN 90 days insulin lispro (Humalog KwikPen U-200 Insulin) 25 units (0.125 mL) subcut TID 90 days lidocaine 5% 1 patch topical DAILY melatonin ER 5 mg PO BEDTIME PRN mupirocin 2% 1 appl topical BID oxcarbazepine 150 mg PO DAILY oxcarbazepine 600 mg PO DAILY PRN pen needle, diabetic (Advocate Pen Needle) Use 1 pen needle once a day pen needle, diabetic As directed pen needle, diabetic, safety (Assure ID Pen Needle) Use 1 pen needle once a day tizanidine 4 mg PO BEDTIME PRN tramadol 50 mg PO Q8H PRN 10 days Trulicity (dulaglutide) 4.5 mg (0.5 mL) subcut QWEEK NS vitamin B complex 1 tab PO DAILY Tobacco use date assessed: 05/09/25 Dental Screening Dental Screen Date: 05/09/25 Did you have a dental visit in the last 12 months?: No Did you have a dental problem in the last 6 months where you did not have access to dental care?: No Was dental information given to patient?: Patient declined HPI HPI Comments History of Present Illness Details The patient is a 64-year-old female presenting with low back pain with radiculopathy. The low back pain began in October and has progressively worsened by February, radiating to the right leg and accompanied by numbness and tingling. She has attempted treatment with gabapentin, which caused sedation, and tizanidine, which was ineffective. A lumbar spine X-ray in September showed minimal degenerative changes without fracture. The patient has also received local injections and physical therapy approximately a month and a half ago. The patient has a history of Type 2 Diabetes Mellitus with an A1c of 11.6% and random blood glucose levels in the 400s, although her glucometer readings show blood sugars in the 80s. There is a suspicion of a malfunctioning glucometer, and a new one has been ordered. She also has chronic pancreatitis and transaminitis, with follow-up pending from gastroenterology. Additionally, the patient has bipolar disorder and is currently on medication for this condition. [facility] Medical History (Updated 05/09/25 @ 14:23 by An Aguilar MD) Hyperlipidemia LDL goal <70 Encounter for well woman exam with routine gynecological exam Diabetes mellitus Physical exam Vaginal burning Vaginal itching Basilar migraine Acute vaginitis Encounter for annual routine gynecological examination Hospital discharge follow-up Shortness of breath COVID-19 Dysuria Vaginal irritation Herpes simplex virus (HSV) infection Intertrigo Diabetes mellitus Migraine with aura Hypertension Renal calculi Chest pain Mixed hyperlipidemia Fibromyalgia Chronic neck pain Nickel allergy Nickel dermatitis Polyarthralgia Surgical History H/O esophagogastroduodenoscopy History of prior ablation treatment History of discectomy History of laparoscopy History of tubal ligation History of colonoscopy History of laparoscopic cholecystectomy History of section Family History Father Prostate cancer Diabetes High cholesterol HTN (hypertension) Mother Liver problem Diabetes High cholesterol HTN (hypertension) Family/Other Diabetes High cholesterol HTN (hypertension) Cancer Social History Household Members: Children Household Members Other:: Son Housing: Apartment Alcohol intake: never Comment: pt refuses bed/chair alarm Patient Tobacco Use Status: Former Tobacco user Tobacco use type: Cigarette Years Smoked: 18 e-Cigarette/Vaping Use: Never Used Second Hand Smoke Exposure: No service: No Current occupational status: disabled Sexual orientation: Straight/Heterosexual Gender identity: Female Cognitive needs: No Hearing needs: No Vision needs: No Questionnaire PHQ-9 Over the last 2 weeks, how often have you been bothered by any of the following problems? 1. Little interest or pleasure in doing things: several days 2. Feeling down, depressed, or hopeless: not at all 3. Trouble falling or staying asleep, or sleeping too much: not at all 4. Feeling tired or having little energy: not at all 5. Poor appetite or overeating: not at all 6. Feeling bad about yourself - or that you are a failure or have let yourself or your family down: not at all 7. Trouble concentrating on things, such as reading the newspaper or watching television: not at all 8. Moving or speaking so slowly that other people could have noticed. Or the opposite - being so fidgety or restless that you have been moving around a lot more than usual: not at all 9. Thoughts that you would be better off or of hurting yourself in some way: not at all Total score: 1 Depression Screening Interpretation: Negative Depression Screening Done: Yes 02371 - PHQ-9 Billing: Yes Source: Developed by Drs. Frank Kay, Drea Griggs, Diego Corcoran and colleagues, with an educational javier from [employer] Thrive Questionnaire Date Thrive assessed: 10/03/24 I am a: Patient What is your living situation today?: I have a steady place to live Within the past 12 months, did the food you bought not last and you didn't have the money to get more?: Never true Within the past 12 months, did you worry whether your food would run out before you got money to buy more?: Never true Do you have trouble paying for medicines?: No Do you have trouble getting transportation to medical appointments?: No Do you have trouble paying your heating and electricity bill?: No Do you have trouble taking care of your child, family member or friend?: No Do you have trouble with day-to-day activities such as bathing, preparing meals, shopping, managing finances, etc.?: No Are you currently unemployed and looking for a job?: Yes Are you interested in more education?: No Please select the resources that you would like help with: None Currently or been in a relationship where the following occur: No concerns reported THRIVE Score: 0 AUDIT C Alcohol Use Questionnaire (AUDIT-C) 1. How often do you have a drink containing alcohol?: Never 3. How often do you have six or more drinks on one occasion?: Never Total Score: 0 Score Reviewed/Action Taken: No ABBY-7 AMB Questionnaire ABBY-7 Date ABBY - 7 assessed: 10/03/24 Feeling nervous, anxious, or on edge: 0 = Not at all Not being able to stop or control worryin = Not at all Worrying too much about different things: 0 = Not at all Trouble relaxin = Not at all Being so restless that it is hard to sit still: 0 = Not at all Becoming easily annoyed or irritable: 0 = Not at all Feeling afraid as if something awful might happen: 0 = Not at all Total ABBY-7 score (0-4 normal; 5-9 mild; 10-14 moderate; 15-21 severe): 0 Source: Developed by Drs. Frank Kay, Drea Griggs, Diego Corcoran and colleagues, with an educational javier from [employer] ABBY-7 Assessment Billing ABBY-7 Assessment Tool: ABBY-7 Assessment 51694 Review of Systems Const All systems reviewed & are unremarkable except as noted in HPI and below Card Denies chest pain at rest, Denies chest pain with activity, Denies edema, Denies irregular heart rhythm, Denies claudication, Denies dyspnea, Denies dyspnea on exertion, Denies orthopnea, Denies paroxysmal nocturnal dyspnea and Denies slow heart rate Resp Denies cough, Denies dyspnea and Denies dyspnea on exertion GI Denies abdominal pain, Denies change in bowel habits, Denies excessive flatus, Denies nausea and Denies vomiting Physical exam (Primary Care) Vital Signs: Last Vital Signs Temp 97.3 F 05/09/25 13:31 Pulse 88 05/09/25 13:31 Resp 18 05/09/25 13:31 BP 120/74 05/09/25 13:31 Pulse Ox 99 05/09/25 13:31 Oxygen Delivery Method Room Air 05/09/25 13:31 BMI result Body Mass Index 29.2 Tobacco/Smoking Status: Tobacco use Status Tobacco use date assessed 05/09/25 05/09/25 13:36 Patient Tobacco Use Status Former Tobacco user 05/09/25 13:30 Tobacco use type Cigarette 05/09/25 13:30 e-Cigarette/Vaping Use Never Used 05/09/25 13:30 PHQ-9: PHQ-9 Score PHQ-9: Total score 1 05/09/25 14:14 Depression Screening Interpretation: Negative Thrive Assessment: Date of Thrive Assessment Date Thrive assessed 10/03/24 05/09/25 13:30 Currently or been in a relationship where the following occur: No concerns reported Const Limitations: ambulation with cane Resp Effort & Inspection: normal respiratory effort Auscultation: clear to auscultation bilaterally Cardio Jugular venous distension: no JVD Rate: regular rate Rhythm: regular rhythm Heart sounds: S1 normal heart sound present and S2 normal heart sound present Back/Spine/Pelvis Thoracic/Lumbar Spine: straight leg raise positive right at 40 degrees Extrem General: Yes full ROM Results AMB Hemoglobin A1c AMB Hemoglobin A1c 11.6 % Last Edit by Yeny Kim CMA on 05/09/25 13:39 Results Reviewed Results Reviewed: Laboratory Last Values Hgb A1c (Clinic) 11.6 % (4.0-6.0) H 05/09/25 13:36 Coding Level of Care Code Est Pt Level 4 (79556) Complex EM visit Add On G2211 Diagnoses Right sided sciatica M54.31 Bipolar affective disorder, remission status unspecified F31.9 Active/Remission status: remission status unspecified Essential hypertension I10 Hyperlipidemia LDL goal <70 E78.5 Type 2 diabetes mellitus with hyperglycemia, with long-term current use of insulin E11.65; Z79.4 Diabetes mellitus type: type 2 Chronic pancreatitis K86.1 Additional Codes ABBY-7 Assessment Billing - ABBY-7 Assessment Tool: ABBY-7 Assessment 50924 ([id number]) PHQ-9 - 05205 - PHQ-9 Billing: Yes ([id number]) Time Spent (min) 23 Assessment & Plan Assessment & Plan (1) Right sided sciatica: Code(s): M54.31 - Sciatica, right side Category: Medical (2) Bipolar disorder: Code(s): F31.9 - Bipolar disorder, unspecified Category: Medical Qualifiers: Active/Remission status: remission status unspecified Qualified Code(s): F31.9 - Bipolar disorder, unspecified (3) Essential hypertension: Code(s): I10 - Essential (primary) hypertension Category: Medical (4) Hyperlipidemia LDL goal <70: Code(s): E78.5 - Hyperlipidemia, unspecified Category: Medical (5) Diabetes mellitus with hyperglycemia, with long-term current use of insulin: Code(s): E11.65 - Type 2 diabetes mellitus with hyperglycemia; Z79.4 - superintendent container terminal (current) use of insulin Category: Medical Qualifiers: Diabetes mellitus type: type 2 Qualified Code(s): E11.65 - Type 2 diabetes mellitus with hyperglycemia; Z79.4 - superintendent container terminal (current) use of insulin (6) Chronic pancreatitis: Code(s): K86.1 - Other chronic pancreatitis Category: Medical Plan The plan includes addressing the patient's low back pain with radiculopathy by considering alternative medications due to the side effects of gabapentin and the ineffectiveness of tizanidine. Further evaluation of her diabetes management is necessary, given the discrepancy in glucometer readings and high A1c levels, with a new glucometer ordered to ensure accurate monitoring. Follow-up with gastroenterology is pending for her chronic pancreatitis and transaminitis. Continued management of bipolar disorder with current medications is also part of the plan. Orders: Orders AMB Hemoglobin A1c Today Z13.9 - Encounter for screening, unspecified Lipid Panel 4 Months E78.5 - Hyperlipidemia, unspecified Vitamin D 25-OH Total 4 Months E55.9 - Vitamin D deficiency, unspecified Vitamin B12 and Folate 4 Months E53.8 - Deficiency of other specified B group vitamins Microalbumin, Random (w Creat) 4 Months R80.9 - Proteinuria, unspecified MR lumbar spine wo con Today M54.31 - Sciatica, right side Comprehensive Met. Panel 4 Months I10 - Essential (primary) hypertension Medications: Refilled FreeStyle Lancets (lancets) three times daily 300 ea 3RF NS E11.65 - Type 2 diabetes mellitus with hyperglycemia, E11.9 - Type 2 diabetes mellitus without complications, Z79.4 - superintendent container terminal (current) use of insulin FreeStyle Lite Meter (blood-glucose meter) test 3 times per day 1 ea 0RF NS E11.65 - Type 2 diabetes mellitus with hyperglycemia, Z79.4 - superintendent container terminal (cu rrent) use of insulin FreeStyle Lite Strips (blood sugar diagnostic) three times daily 300 ea 3RF NS E11.65 - Type 2 diabetes mellitus with hyperglycemia, E11.9 - Type 2 diabetes mellitus without complications, Z79.4 - superintendent container terminal (current) use of insulin Discontinued gabapentin Discontinued Reason: Order 300 mg PO TID 30 caps 0RF
[2025-05-09 13:31] VITALS: BP 120/74; PULSE 88; RESP 18; TEMP 36.3; O2SAT 99; BMI 29.2
== END 2025-05-09 14:35 | disposition home or self-care (01) ==
LOC: HO.HMCH 13:25
PROVIDERS: PCP Internal Medicine; Visit Provider Internal Medicine
DX: E11.65 Type 2 diabetes mellitus with hyperglycemia (principal); F31.9 Bipolar disorder, unspecified; Z79.4 Long term (current) use of insulin; K86.1 Other chronic pancreatitis; M54.31 Sciatica, right side; I10 Essential (primary) hypertension; E78.5 Hyperlipidemia, unspecified

== ENCOUNTER → 2025-05-09 13:24 | Outpatient (BNVA) | payer OTHER, SELFPAY | PROVIDERS: PCP Internal Medicine; Visit Provider Internal Medicine | DX: M54.16 Radiculopathy, lumbar region (principal); M54.31 Sciatica, right side; F31.9 Bipolar disorder, unspecified; I10 Essential (primary) hypertension; E78.5 Hyperlipidemia, unspecified; E11.65 Type 2 diabetes mellitus with hyperglycemia; K86.1 Other chronic pancreatitis; Z79.4 Long term (current) use of insulin | CPT/HCPCS: 83036; 96127; 99212 ==

== ENCOUNTER 2025-05-16 10:37 | Outpatient (AMB) | payer OTHER, SELFPAY ==
[2025-05-16 10:40] VITALS: BP 120/60; PULSE 96; O2SAT 96; BMI 28.0
--- NOTE | 2025-05-16 10:40 | A.OFFVIS_ITS ---
Vital Signs 05/16/25 10:40 Height 4 ft 11 in Weight 138 lb 14.259 oz BMI 28.0 BP 120/60 Blood Pressure Location Rt brachial Position Sitting Pulse 96 Pulse Source Pulse Oximeter Pulse Oximetry (%) 96 Oxygen Delivery Method Room Air Intake Visit Reasons: DM Intake Note: Patient presents today for a follow-up on Type 2 Diabetes Mellitus: Last Diabetic eye exam was on: DUE Last Podiatry exam was on: Patient does not see a Cellular Equipment Repairer Most recent HbA1c: 11.6%, 05/09/2025 Random Glucose- 423 mg/dL, Today Educational Resource Center Teacher Required: No Accompanied by: Self / Same As Patient Allergies insulin glargine (From Lantus U-100 Insulin) Allergy (Severe, Verified 05/16/25 10:41) paralized nickel Allergy (Severe, Verified 05/16/25 10:41) Rash Penicillins Allergy (Severe, Verified 05/16/25 10:41) Hives acetaminophen (Percocet) Allergy (Intermediate, Verified 05/16/25 10:41) vomiting cyclobenzaprine (CYCLOBENZAPRINE) Allergy (Intermediate, Verified 05/16/25 10:41) HEADACHE,DIZZINESS divalproex sodium (Depakote) Allergy (Intermediate, Verified 05/16/25 10:41) increase liver enzymes methocarbamol (METHOCARBAMOL) Allergy (Intermediate, Verified 05/16/25 10:41) TICS oxycodone (From PERCOCET) Allergy (Intermediate, Verified 05/16/25 10:41) VOMITING insulin degludec (From Tresiba FlexTouch U-100) Adverse Reaction (Severe, Verified 05/16/25 10:41) loss of balance, body aches liraglutide (From Victoza) Adverse Reaction (Severe, Verified 05/16/25 10:41) hypoglycemia lisinopril Adverse Reaction (Severe, Verified 05/16/25 10:41) Dizziness risperidone (RISPERIDONE) Adverse Reaction (Severe, Verified 05/16/25 10:41) CHEST PAIN baclofen Adverse Reaction (Intermediate, Verified 05/16/25 10:41) Palpitations canagliflozin (Invokana) Adverse Reaction (Intermediate, Verified 05/16/25 10:41) confusion dulaglutide (Trulicity) Adverse Reaction (Intermediate, Verified 05/16/25 10:41) abdominal bloating, numbness, myalgia Narcotics Allergy (Mild, Uncoded 05/16/25 10:41) dizzy, sick HPI Comments Details: This is a 63-year-old female with type 2 diabetes presenting for follow up Med Hx: bipolar disorder, cirrhosis, hyperlipidemia, polyarthralgia 04/2025 A1c 11.4%. 02/14/2025-11.8% improved from 14.0% No CGM: sensor was causing bleeding. Left her traditional meter in [place] and has not been recently checking glucose. As such she stopped her humalog. Current prescribed medications: Humalog 25 TID, Trulicity 4.5 weekly. She received a letter from her insurance She was prescribed Toujeo 10 qhs (never started). Did not like lantus. Past medications: acarbose, actos (says gave her hypoglycemia), glipizide (says gave her hypoglycemia), Victoza (hypoglycemia), Tresiba (balance issues), Lantus (muscle weakness), SGLT-vaginal rash, metformin -GI side effects. Micro/Macrovasular complications: neuropathy Eye exam due Podiatry-declines ROS CONSTITUTIONAL: Denies weight loss, fever and chills. HEENT: Denies changes in vision and hearing. RESPIRATORY: Denies SOB and cough. CV: Denies palpitations and CP GI: Denies abdominal pain, nausea, vomiting and diarrhea : Denies dysuria and urinary frequency. MSK:Low back pain with left sided sciatica SKIN: Denies rash and pruritus. NEUROLOGICAL: Denies headache PSYCHIATRIC: Denies recent changes in mood. PHYSICAL EXAM: GENERAL: Alert and oriented x 3. NAD EYES: EOMI. Anicteric. HENT: Moist mucous membranes. No scleral icterus. No cervical lymphadenopathy. LUNGS: Clear to auscultation bilaterally. CARDIOVASCULAR: Regular rate and rhythm. No murmur. No JVD. ABDOMEN: Soft, obese, non-tender +bs EXTREMITIES: No edema. Non-tender. SKIN: No rashes or lesions. Warm. NEUROLOGIC: No focal neurological deficits. CN II-XII grossly intact PSYCHIATRIC: Cooperative. Appropriate mood and affect [facility] Medical History Hyperlipidemia LDL goal <70 Encounter for well woman exam with routine gynecological exam Diabetes mellitus Physical exam Vaginal burning Vaginal itching Basilar migraine Acute vaginitis Encounter for annual routine gynecological examination Hospital discharge follow-up Shortness of breath COVID-19 Dysuria Vaginal irritation Herpes simplex virus (HSV) infection Intertrigo Diabetes mellitus Migraine with aura Hypertension Renal calculi Chest pain Mixed hyperlipidemia Fibromyalgia Chronic neck pain Nickel allergy Nickel dermatitis Polyarthralgia Surgical History H/O esophagogastroduodenoscopy History of prior ablation treatment History of discectomy History of laparoscopy History of tubal ligation History of colonoscopy History of laparoscopic cholecystectomy History of section Family History Father Prostate cancer Diabetes High cholesterol HTN (hypertension) Mother Liver problem Diabetes High cholesterol HTN (hypertension) Family/Other Diabetes High cholesterol HTN (hypertension) Cancer Social History Household Members: Children Household Members Other:: Son Housing: Apartment Alcohol intake: never Comment: pt refuses bed/chair alarm Patient Tobacco Use Status: Former Tobacco user Tobacco use type: Cigarette Years Smoked: 18 e-Cigarette/Vaping Use: Never Used Second Hand Smoke Exposure: No service: No Current occupational status: disabled Sexual orientation: Straight/Heterosexual Gender identity: Female Cognitive needs: No Hearing needs: No Vision needs: No Physical Exam Vital Signs: Last Vital Signs Pulse 96 05/16/25 10:40 BP 120/60 05/16/25 10:40 Pulse Ox 96 05/16/25 10:40 Oxygen Delivery Method Room Air 05/16/25 10:40 BMI result Body Mass Index 28.0 Assessment & Plan Assessment & Plan (1) Diabetes mellitus: Code(s): E11.9 - Type 2 diabetes mellitus without complications Category: Medical Qualifiers: Diabetes mellitus type: type 2 Diabetes mellitus ferry terminal supervisor insulin use: with ferry terminal supervisor use Diabetes mellitus complication status: with hyperglycemia Qualified Code(s): E11.65 - Type 2 diabetes mellitus with hyperglycemia; Z79.4 - long term care phlebotomist (current) use of insulin Plan DM-uncontrolled ContourNext traditional meter provided to patient today CGM ordered. Once in receipt she will call the office to get teaching She will resume insulin now that she had testing supplies She will continue trulicity until alternate GLP is approved. Pegmckenna sent Medications: New [place] (tirzepatide) transitioning from trulicity 4.5 10 mg (0.5 mL) subcut QWEEK 6 mL 3RF NS E11.65 - Type 2 diabetes mellitus with hyperglycemia, Z79.4 - halfway (current) use of insulin FreeStyle Avi 3 Plus Sensor (blood-glucose sensor) every 15 days 6 ea 3RF NS E11.65 - Type 2 diabetes mellitus with hyperglycemia, E11.9 - Type 2 diabetes mellitus without complications, Z79.4 - long term care phlebotomist (current) use of insulin FreeStyle Avi 3 [place] (blood-glucose,head of visual merchandising,cont) continuous 1 ea 0RF NS E11.65 - Type 2 diabetes mellitus with hyperglycemia, E11.9 - Type 2 diabetes mellitus without complications, Z79.4 - long term care phlebotomist (current) use of insulin Changed From tizanidine 4 mg PO BEDTIME PRN 7 caps 0RF muscle spasticity To tizanidine may pay out of pocket 4 mg PO BEDTIME PRN 30 caps 0RF muscle spasticity Refilled insulin lispro (Humalog KwikPen U-200 Insulin) 25 units (0.125 mL) subcut TID 45 mL 3RF 90 days E11.65 - Type 2 diabetes mellitus with hyperglycemia, Z79.4 - long term care phlebotomist (current) use of insulin Discontinued blood-glucose meter Discontinued Reason: Doctor's Order As directed 1 ea 0RF blood pressure monitor Discontinued Reason: Doctor's Order As directed 1 ea 0RF E11.65 - Type 2 diabetes mellitus with hyperglycemia, Z79.4 - halfway (current) use of insulin blood-glucose sensor ([employer] G7 Sensor device) Discontinued Reason: Doctor's Order As directed 1 ea 11RF E11.9 - Type 2 diabetes mellitus without complications, Z79.4 - long term care phlebotomist (current) use of insulin flash glucose sensor (FreeStyle Avi 14 Day Sensor kit) Discontinued Reason: Doctor's Order As directed 1 ea 11RF E11.65 - Type 2 diabetes mellitus with hyperglycemia, E11.9 - Type 2 diabetes mellitus without complications, Z79.4 - halfway (current) use of insulin Coding Level of Care Code Est Pt Level 4 (11499) Diagnoses Type 2 diabetes mellitus with hyperglycemia, with long-term current use of insulin E11.65; Z79.4 Diabetes mellitus type: type 2 Diabetes mellitus senior care insulin use: with senior care use Diabetes mellitus complication status: with hyperglycemia
[2025-05-16 10:53] LABS: Glucose, Whole Blood 423 mg/dL (60-115)
== END 2025-05-16 11:22 | disposition home or self-care (01) ==
LOC: HO.ENCR 10:38
PROVIDERS: PCP Internal Medicine; Visit Provider Internal Medicine
DX: E11.65 Type 2 diabetes mellitus with hyperglycemia (principal); Z79.4 Long term (current) use of insulin

== ENCOUNTER → 2025-05-16 10:37 | Outpatient (BNVA) | payer OTHER, SELFPAY | PROVIDERS: PCP Internal Medicine; Visit Provider Internal Medicine | DX: E11.65 Type 2 diabetes mellitus with hyperglycemia (principal); Z79.4 Long term (current) use of insulin | CPT/HCPCS: 82947; 99212 ==

== ENCOUNTER 2025-05-18 12:21 | Outpatient (REF) | payer OTHER, SELFPAY ==
[2025-05-18 12:34] LABS: MANUAL DIFF FLAG NO
[2025-05-18 14:23] LABS: Hematocrit 42.8 % (37.0-47.0); Hemoglobin 14.8 g/dl (12.0-16.0); Imm Gran Abs Auto 0.01 X10*3/uL (0.00-0.03); Imm Gran Pct Auto 0.2 % (0.0-0.4); Lymphocytes Absolute Auto 2.6 X10*3/uL (1.2-4.9); Mean Corpuscular HGB Conc 34.6 g/dl (31.0-35.0); Mean Corpuscular Hemoglobin 30.0 pg (27.0-33.0); Mean Corpuscular Volume 86.8 fL (80.0-98.0); NRBC Abs Auto 0.000 X10*3/uL (0.0-0.012); NRBC Pct Auto 0.0 /100WBC (0.0-0.2); Platelet Count 171 X10*3/uL (160-400); Red Blood Count 4.93 X10*6/uL (4.20-5.50); White Blood Count 6.4 X10*3/uL (4.8-10.8)
[2025-05-18 14:53] LABS: Iron 133 mcg/dL (30-160); Percent Iron Saturation 40 % (15-50); Total Iron Binding Capacity 329 mcg/dL (228-428); Unsaturated Iron Binding 196 ug/dL
[2025-05-22 10:03] LABS: TS Negative Control Passed; TS Panel A 0; TS Panel B 1; TS Positive Control Passed; TSpotTB Negative (Negative)
== END 2025-05-18 12:22 | disposition home or self-care (01) ==
LOC: HO.LAB 12:21
PROVIDERS: PCP Internal Medicine; Visit Provider Internal Medicine
DX: Z11.1 Encounter for screening for respiratory tuberculosis (principal); D64.9 Anemia, unspecified
CPT/HCPCS: 36415; 83540; 85025; 86481

== ENCOUNTER → 2025-05-27 09:21 | Outpatient (BNV) | payer OTHER, SELFPAY | PROVIDERS: PCP Internal Medicine; Visit Provider Radiology Diagnostic Radiology | DX: M51.372 Other intervertebral disc degeneration, lumbosacral region with discogenic back pain and lower extremity pain (principal) | CPT/HCPCS: 72148 ==

== ENCOUNTER 2025-05-27 09:23 | Outpatient (REF) | payer OTHER, SELFPAY ==
--- NOTE | ~2025-05-27 | MR_ITS ---
CLINICAL HISTORY: M54.31 - Sciatica, right side --- Additional Notes or Special Instructions: bladder incontinence Examination: MRI lumbar spine without intravenous contrast Comparison: CR/SR - XR LUMBAR SPINE 2-3 VIEWS - 09/27/24 11:43 EST Findings: Plain radiograph correlation: 09/27/2024 demonstrated 5 developed [id number] lumbar vertebra, discs numbered accordingly. The lumbar spine is anatomic in alignment and demonstrates a normal anatomic lordotic curvature. The vertebral body heights are well maintained. No acute or chronic compression deformities are present. T11 vertebral body hemangioma. The anterior posterior longitudinal ligament and interspinous ligament are preserved. Paravertebral soft tissues within normal limits. Probable renal cortical cysts on the left can be correlated with ultrasound. Sacroiliac joints appear normal. The conus demonstrates normal caliber and signal intensity and terminates at L1 level. Individual intervertebral disc levels as follows: L1-L2: Normal disc height and signal with no discogenic changes. No disc bulge protrusion or extrusion. No central or foraminal stenosis or thecal sac compression. Normal posterior elements. L2-L3: Normal disc height and signal with no discogenic changes. No disc bulge protrusion or extrusion. No central or foraminal stenosis or thecal sac compression. Normal posterior elements. L3-L4: Mild disc desiccation. Posterior annular tear. Mild concentric disc bulge. No nerve root impingement. Normal posterior elements. L4-L5: Normal disc height and signal with no discogenic changes. No disc bulge protrusion or extrusion. No central or foraminal stenosis or thecal sac compression. Mild degenerative facet hypertrophy. L5-S1: Mild disc desiccation. Posterior annular tear. Right paracentral disc extrusion abutting S1 descending nerve root on the right. Exiting nerve roots are spared. Mild degenerative facet hypertrophy. T12-L1: Normal disc height and signal with no discogenic changes. No disc bulge protrusion or extrusion. No central or foraminal stenosis Impression: 1. Disc desiccation and posterior annular tear L5-S1 with right paracentral disc extrusion abutting S1 descending nerve root on the right. L5 exiting nerve roots are spared. 2. Mild disc desiccation L3-4 with concentric disc bulge but no nerve root impingement. 3. No compression fractures or listhesis. Normal lordotic curvature. T11 vertebral body hemangioma. This document has been electronically signed by: Lee Samson MD on 05/27/2025 11:20:47
== END 2025-05-27 09:24 | disposition home or self-care (01) ==
LOC: HO.MRI 09:23
PROVIDERS: PCP Internal Medicine; Visit Provider Internal Medicine
DX: M54.31 Sciatica, right side (principal)
CPT/HCPCS: 72148

== ENCOUNTER 2025-05-29 12:31 | Outpatient (AMB) | payer OTHER, SELFPAY ==
--- NOTE | 2025-05-29 13:14 | A.OFFVIS_ITS ---
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 Annual Information Interpreted: non-clinical & clinical Human Resources Technician: Human Resources Technician Present (Jes) Accompanied by: Self / Same As Patient Allergies insulin glargine (From Lantus U-100 Insulin) Allergy (Severe, Verified 05/29/25 13:22) paralized nickel Allergy (Severe, Verified 05/29/25 13:22) Rash Penicillins Allergy (Severe, Verified 05/29/25 13:22) Hives acetaminophen (Percocet) Allergy (Intermediate, Verified 05/29/25 13:22) vomiting cyclobenzaprine (CYCLOBENZAPRINE) Allergy (Intermediate, Verified 05/29/25 13:22) HEADACHE,DIZZINESS divalproex sodium (Depakote) Allergy (Intermediate, Verified 05/29/25 13:22) increase liver enzymes methocarbamol (METHOCARBAMOL) Allergy (Intermediate, Verified 05/29/25 13:22) TICS oxycodone (From PERCOCET) Allergy (Intermediate, Verified 05/29/25 13:22) VOMITING insulin degludec (From Tresiba FlexTouch U-100) Adverse Reaction (Severe, Verified 05/29/25 13:22) loss of balance, body aches liraglutide (From Victoza) Adverse Reaction (Severe, Verified 05/29/25 13:22) hypoglycemia lisinopril Adverse Reaction (Severe, Verified 05/29/25 13:22) Dizziness risperidone (RISPERIDONE) Adverse Reaction (Severe, Verified 05/29/25 13:22) CHEST PAIN baclofen Adverse Reaction (Intermediate, Verified 05/29/25 13:22) Palpitations canagliflozin (Invokana) Adverse Reaction (Intermediate, Verified 05/29/25 13:22) confusion dulaglutide (Trulicity) Adverse Reaction (Intermediate, Verified 05/29/25 13:22) abdominal bloating, numbness, myalgia Narcotics Allergy (Mild, Uncoded 05/29/25 13:22) dizzy, sick Medication List - Last Reconciled 05/29/25 by Yaneli Chew, PSYCHOMETRIC EXAMINER acarbose 25 mg PO TID alpha lipoic acid 600 mg PO BIDAC carisoprodol 350 mg PO DAILY PRN 30 days cholecalciferol (vitamin D3) 25 mcg PO DAILY 90 days clotrimazole-betamethasone 1-0.05 % 1 appl topical BID 7 days cyanocobalamin (vitamin B-12) 1,000 mcg PO DAILY diazepam 10 mg PO BID PRN fenofibrate 54 mg PO DAILY 90 days FreeStyle Lancets (lancets) three times daily NS FreeStyle Avi 3 Plus Sensor (blood-glucose sensor) every 15 days NS FreeStyle Avi 3 [place] (blood-glucose,acid bath mixer,cont) continuous NS FreeStyle Lite Meter (blood-glucose meter) test 3 times per day NS FreeStyle Lite Strips (blood sugar diagnostic) three times daily NS gabapentin 300 mg PO TID 30 days ibuprofen 600 mg PO TID PRN 90 days insulin lispro (Humalog KwikPen U-200 Insulin) 25 units (0.125 mL) subcut TID 90 days lidocaine 5% 1 patch topical DAILY melatonin ER 5 mg PO BEDTIME PRN mupirocin 2% 1 appl topical BID oxcarbazepine 150 mg PO DAILY oxcarbazepine 600 mg PO DAILY PRN pen needle, diabetic (Advocate Pen Needle) Use 1 pen needle once a day pen needle, diabetic As directed pen needle, diabetic, safety (Assure ID Pen Needle) Use 1 pen needle once a day tizanidine 4 mg PO BEDTIME PRN tizanidine 4 mg PO BEDTIME PRN tramadol 50 mg PO Q8H PRN 10 days Trulicity (dulaglutide) 4.5 mg (0.5 mL) subcut QWEEK NS vitamin B complex 1 tab PO DAILY Do you need a note to return to daycare/school/sports/work: No HPI Comments Details: Patient is a postmenopausal woman presenting for her annual urogynaecologist examination. 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 Currently not sexually active. Denies any vaginal dryness or irritation. STI testing offered; she declines. Attempting to eat a healthy diet with calcium and vitamin D. Last pap smear; 2021, negative. Last mammogram; 2023. Colonoscopy is UTD. Denies any family history of breast, ovarian or colon cancer. [facility] Medical History (Updated 05/29/25 @ 14:18 by Shonda Conklin CNM) Encounter for well woman exam with routine gynecological exam Hyperlipidemia LDL goal <70 Diabetes mellitus Physical exam Vaginal burning Vaginal itching Basilar migraine Acute vaginitis Encounter for annual routine gynecological examination Hospital discharge follow-up Shortness of breath COVID-19 Dysuria Vaginal irritation Herpes simplex virus (HSV) infection Intertrigo Diabetes mellitus Migraine with aura Hypertension Renal calculi Chest pain Mixed hyperlipidemia Fibromyalgia Chronic neck pain Nickel allergy Nickel dermatitis Polyarthralgia Surgical History H/O esophagogastroduodenoscopy History of prior ablation treatment History of discectomy History of laparoscopy History of tubal ligation History of colonoscopy History of laparoscopic cholecystectomy History of section Family History Father Prostate cancer Diabetes High cholesterol HTN (hypertension) Mother Liver problem Diabetes High cholesterol HTN (hypertension) Family/Other Diabetes High cholesterol HTN (hypertension) Cancer Social History Household Members: Children Household Members Other:: Son Housing: Apartment Alcohol intake: never Comment: pt refuses bed/chair alarm Patient Tobacco Use Status: Former Tobacco user Tobacco use type: Cigarette Years Smoked: 18 e-Cigarette/Vaping Use: Never Used Second Hand Smoke Exposure: No service: No Current occupational status: disabled Sexual orientation: Straight/Heterosexual Gender identity: Female Cognitive needs: No Hearing needs: No Vision needs: No Female Reproductive History Menstrual control method: permanent sterilization Permanent Sterilization: BTL Total pregnancies: 7 Full term: 4 Number of Living Children: 4 Ab induced: 3 Date of last pap smear: 07/14/22 (neg pap and hpv) History of abnormal pap smear: Yes (05/02 ascus 12/27 ascus +hpv) Date of Mammogram: 08/24/24 (birad 1) Review of Systems Const All systems reviewed & are unremarkable except as noted in HPI and below Reports as per HPI Eyes Reports no additional complaints ENT Reports no additional complaints Card Reports no additional complaints Resp Reports no additional complaints GI Reports as per HPI and Reports no additional complaints Reports as per HPI Musc Reports no additional complaints Skin/Breast Reports as per HPI Neuro Reports no additional complaints Psych Reports no additional complaints Endo Reports no additional complaints Jesus/Lymph Reports no additional complaints Aller/Immun Reports no additional complaints Physical Exam Vital Signs: Last Vital Signs BP 138/74 05/29/25 13:26 BMI result Body Mass Index 29.9 Const General: cooperative, healthy appearing, no acute distress, well developed and alert Orientation/consciousness: patient oriented x3 HEENT Head: Yes normal to inspection Eyes General: appearance normal, both eyes and all related structures Neck Neck: Yes normal visual inspection Thyroid: Thyroid normal Chest Chest palpation & inspection: normal inspection of the chest and other (no puckering, dimpling, peau de orange, retraction, discharge, masses) Breast/axilla inspection: normal inspection of the breasts Breast/axilla palpation: normal palpation of the breasts Resp Effort & Inspection: normal respiratory effort GI Inspection: Yes normal to inspection Palpation (GI): Soft to palpation Rectal Exam - Female: deferred General: Yes bladder normal to palpation External Female Exam: normal external appearance, normal appearance of the urethra and erythema Speculum Exam - Vagina: normal appearance of the vagina, normal palpation, normal vaginal discharge and vagina atrophic Speculum Exam - Cervix: normal appearance of the cervix and normal palpation Bimanual exam- vagina & uterus: normal bimanual exam, normal palpation, uterine size normal, bladder normal to palpation, normal palpation and non-tender Bimanual Exam- Adnexa, other: no masses Skin General skin exam: no rashes or lesions noted Rashes: no rashes Neuro General: patient oriented x3 Cognition (Neuro): normal cognition Extrem General: Yes normal to inspection Psych Attitude: cooperative Thought process: Normal thought process present Assessment & Plan Assessment & Plan (1) Encounter for well woman exam with routine gynecological exam: Code(s): Z01.419 - Encounter for gynecological examination (general) (routine) without abnormal findings Category: Medical Plan Discussed: Current recommendations for pap smears per ASCCP guidelines. Breast awareness, periodic self breast exams and yearly mammogram. Maintain a healthy lifestyle, well balanced diet including Calcium 1,200 mg and Vitamin D 600 IU daily, and routine exercise. Use of condoms for STI prevention if indicated. Contact the office with any postmenopausal bleeding. Patient verbalizes understanding and agrees to the plan of care. She was given opportunity to ask questions and all questions were answered to the best of my ability. RTO in 1 year for annual urogynaecologist exam. This note is constructed using voice recognition software. While every effort has been made to ensure accuracy, agent based modeler errors may have been included. Orders: Orders 2 Bacterial Vaginosis Panel Today N89.8 - Other specified noninflammatory disorders of vagina Coding Level of Care Code New Pt Prev Care 40-64y(61177) Diagnoses Encounter for well woman exam with routine gynecological exam Z01.419
[2025-05-29 13:26] VITALS: BP 138/74; BMI 29.9
== END 2025-05-29 14:37 | disposition home or self-care (01) ==
LOC: HO.HWS 12:31
PROVIDERS: PCP Internal Medicine; Visit Provider Advanced Practice Midwife
DX: Z01.419 Encounter for gynecological examination (general) (routine) without abnormal findings (principal)
CPT/HCPCS: 99396; 99459

== ENCOUNTER 2025-05-29 12:31 | Outpatient (REF) | payer OTHER, SELFPAY ==
[2025-05-29 17:03] LABS: Bacterial Vaginosis PCR NEGATIVE (Negative); Candida Group PCR DETECTED (Not Detect); Candida glab krusei PCR NOT DETECTED (Not Detect); Trichomonas vaginalis PCR NOT DETECTED (Not Detect)
== END 2025-05-29 12:32 | disposition home or self-care (01) ==
LOC: HO.LAB 12:31
PROVIDERS: PCP Internal Medicine; Visit Provider Advanced Practice Midwife
DX: Z01.419 Encounter for gynecological examination (general) (routine) without abnormal findings (principal); N89.8 Other specified noninflammatory disorders of vagina; Z98.51 Tubal ligation status
CPT/HCPCS: 81515; 99396

== ENCOUNTER 2025-06-27 11:31 | Emergency (ER) | payer OTHER, SELFPAY ==
[2025-06-27 12:13] VITALS: BP 00/00; PULSE 81; RESP 18; TEMP 36.6; O2SAT 100; BMI 27.9
--- NOTE | 2025-06-27 12:34 | PC.NURSE ---
Pt reports burning pain in her feet. Able to ambulate with cane Took tinazadine this morning, but no insulin becasue pain too strong. No food since last night.
[2025-06-27 12:45] LABS: Glucose, Whole Blood 282 mg/dL (60-115)
--- NOTE | 2025-06-27 13:19 | ED.GENADULT ---
HPI - General Adult General Chief complaint: Extremity Problem Stated complaint: bilateral leg pain Time Seen by Provider: 06/27/25 12:59 Source: patient and RN notes reviewed Mode of arrival: ambulatory Limitations: no limitations History of Present Illness HPI narrative: 65 yo female with a history of diabetes, sciatica, thoracic spondylosis, bipolar disorder, and vertigo presents to the ED today for evaluation of bilateral leg pain described as a burning sensation for the past 2 months. Pain is described as radiating down both legs with associated lower back pain that has been interfering with ambulation. She was evaluated at [facility], who diagnosed her with a muscle/nerve injury and administered a cortisone injection without improvement. She was also prescribed tizanidine, which provides great relief, which she is here to refill today. Patient reports seeing her diabetes management provider this morning, who advised emergency evaluation due to inability to walk and ambulate. She also reports lower back pain and sensation of fullness over the bladder with difficulty initiating urination, feeling the need to push to void. She can still feel genital sensations when wiping. Patient reports constipation but denies urinary urgency, dysuria, incontinence, or genital numbness. She denies trauma, fevers, chills, bowel or bladder incontinence, chest pain, or shortness of breath. Related Data Home Medications ?Medication ?Instructions ?Recorded ?Confirmed diazepam 10 mg tablet 10 mg PO BID PRN Muscle Spasm 09/03/20 05/29/25 alpha lipoic acid 600 mg capsule 600 mg PO BIDAC 03/01/22 05/29/25 cyanocobalamin (vitamin B-12) 1,000 mcg PO DAILY 03/01/22 05/29/25 1,000 mcg tablet vitamin B complex 1 tab PO DAILY 03/01/22 05/29/25 oxcarbazepine 150 mg tablet 150 mg PO DAILY 02/17/24 05/29/25 melatonin 10 mg tablet,extended 5 mg PO BEDTIME PRN 07/19/24 05/29/25 release oxcarbazepine 600 mg tablet 600 mg PO DAILY PRN 12/20/24 05/29/25 Previous Rx's ?Medication ?Instructions ?Recorded ibuprofen 600 mg tablet 600 mg PO TID PRN pain 90 days 07/30/22 #270 tabs mupirocin 2 % topical ointment 1 appl topical BID #15 grams 02/03/24 pen needle, diabetic 31 gauge x #100 ea 03/14/2402/02 (Advocate Pen Needle) pen needle, diabetic, safety 30 #100 ea 03/14/24 gauge x 02/02 (Assure ID Pen Needle) clotrimazole-betamethasone 1 1 appl topical BID itching 7 days 07/07/24 %-0.05 % topical cream #45 grams fenofibrate 54 mg tablet 54 mg PO DAILY 90 days #90 tabs 10/03/24 tramadol 50 mg tablet 50 mg PO Q8H PRN pain 10 days #30 11/03/24 tabs lidocaine 5 % topical patch 1 patch topical DAILY #15 ea 11/15/24 cholecalciferol (vitamin D3) 25 25 mcg PO DAILY 90 days #90 caps 02/04/25 mcg (1,000 unit) capsule Trulicity 4.5 mg/0.5 mL 4.5 mg (0.5 mL) subcut QWEEK #6 mL 02/14/25 subcutaneous pen injector (dulaglutide) acarbose 25 mg tablet 25 mg PO TID #270 tabs 02/14/25 carisoprodol 350 mg tablet 350 mg PO DAILY PRN Muscle Spasm 02/21/25 30 days #30 tabs FreeStyle Lancets 28 gauge #300 ea 05/09/25 (lancets) FreeStyle Lite Meter #1 ea 05/09/25 (blood-glucose meter) FreeStyle Lite Strips (blood sugar #300 ea 05/09/25 diagnostic) FreeStyle Avi 3 Plus Sensor #6 ea 05/16/25 (blood-glucose sensor) FreeStyle Avi 3 [place] #1 ea 05/16/25 (blood-glucose,corporate training manager,cont) insulin lispro 200 unit/mL (3 mL) 25 unit (0.125 mL) subcut TID 90 05/16/25 subcutaneous pen (Humalog #45 mL U-200 Insulin) tizanidine 4 mg capsule 4 mg PO BEDTIME PRN muscle 05/16/25 spasticity #30 caps gabapentin 300 mg capsule 300 mg PO TID 30 days #90 caps 05/28/25 tizanidine 4 mg tablet 4 mg PO BEDTIME PRN muscle 06/13/25 spasticity #30 tabs pen needle, diabetic 31 gauge x #50 ea 09/30/25 3/16 tizanidine 4 mg capsule 4 mg PO BEDTIME PRN muscle 06/27/25 spasticity 7 days #7 caps Allergies Allergy/AdvReac Type Severity Reaction Status Date / Time insulin glargine (From Allergy Severe paralized Verified 06/27/25 12:14 Lantus U-100 Insulin) nickel Allergy Severe Rash Verified 06/27/25 12:14 Penicillins Allergy Severe Hives Verified 06/27/25 12:14 acetaminophen (Percocet) Allergy Intermediate vomiting Verified 06/27/25 12:14 cyclobenzaprine Allergy Intermediate HEADACHE,DI Verified 06/27/25 12:14 (CYCLOBENZAPRINE) ZZINESS divalproex sodium (Depakote) Allergy Intermediate increase Verified 06/27/25 12:14 liver enzymes methocarbamol (METHOCARBAMOL) Allergy Intermediate TICS Verified 06/27/25 12:14 oxycodone (From PERCOCET) Allergy Intermediate VOMITING Verified 06/27/25 12:14 insulin degludec (From AdvReac Severe loss of Verified 06/27/25 12:14 Tresiba FlexTouch U-100) balance, body aches liraglutide (From Victoza) AdvReac Severe hypoglycemi Verified 06/27/25 12:14 a lisinopril AdvReac Severe Dizziness Verified 06/27/25 12:14 risperidone (RISPERIDONE) AdvReac Severe CHEST PAIN Verified 06/27/25 12:14 baclofen AdvReac Intermediate Palpitation Verified 06/27/25 12:14 s canagliflozin (Invokana) AdvReac Intermediate confusion Verified 06/27/25 12:14 dulaglutide (Trulicity) AdvReac Intermediate abdominal Verified 06/27/25 12:14 bloating, numbness, myalgia Narcotics Allergy Mild dizzy, sick Uncoded 06/27/25 12:14 Review of Systems Review of Systems: Yes all other systems are reviewed and are negative Constitutional: Constitutional: Reports as per [facility] Past Medical History Medical History (Updated 06/27/25 @ 15:10 by PEDRO Reveles) Encounter for well woman exam with routine gynecological exam Hyperlipidemia LDL goal <70 Diabetes mellitus Physical exam Vaginal burning Vaginal itching Basilar migraine Acute vaginitis Encounter for annual routine gynecological examination Hospital discharge follow-up Shortness of breath COVID-19 Dysuria Vaginal irritation Herpes simplex virus (HSV) infection Intertrigo Diabetes mellitus Migraine with aura Hypertension Renal calculi Chest pain Mixed hyperlipidemia Fibromyalgia Chronic neck pain Nickel allergy Nickel dermatitis Polyarthralgia Surgical History H/O esophagogastroduodenoscopy History of prior ablation treatment History of discectomy History of laparoscopy History of tubal ligation History of colonoscopy History of laparoscopic cholecystectomy History of section Family History Family History Father Prostate cancer Diabetes High cholesterol HTN (hypertension) Mother Liver problem Diabetes High cholesterol HTN (hypertension) Family/Other Diabetes High cholesterol HTN (hypertension) Cancer Social History Social History (Reviewed 05/29/25 @ 13: by Yaneli Chew LPN) Household Members: Children Household Members Other:: Son Housing: Apartment Alcohol intake: never Comment: pt refuses bed/chair alarm Patient Tobacco Use Status: Former Tobacco user Tobacco use type: Cigarette Years Smoked: 18 e-Cigarette/Vaping Use: Never Used Second Hand Smoke Exposure: No Advance Directives: No Advance Directives Information Provided: Yes service: No Current occupational status: disabled Sexual orientation: Straight/Heterosexual Gender identity: Female Cognitive needs: No Hearing needs: No Vision needs: No Physical Exam ED Vital Signs: Vital Signs - 24 hr 06/27/25 12:13 06/27/25 14:00 06/27/25 15:18 Temperature 97.8 F 97.7 F Pulse Rate 81 86 86 Respiratory Rate 18 18 18 Blood Pressure 00/00 L 186/80 H 180/77 H Pulse Oximetry 100 97 97 Oxygen Delivery Method Room Air Room Air Room Air BMI result Body Mass Index 27.9 Const General: cooperative, comfortable and no acute distress Orientation/consciousness: patient oriented x3 Limitations: no limitations HENMT Head: Yes normal to inspection, Yes normocephalic and Yes atraumatic Ears: hearing grossly normal bilaterally General nose exam: Normal external nose present Face and sinus: Yes normal facial exam Mouth: Normal oral and palatal mucosa present, oropharynx normal and moist mucous membranes Throat: Yes posterior oropharynx normal Eyes General: appearance normal, both eyes and all related structures Eyelids: Yes eyelids normal Conjunctivae: conjunctivae normal Sclerae: sclerae normal Pupils: Equal, round and reactive pupils present EOM: EOMs intact bilaterally Neck Neck: Yes normal visual inspection, Yes full ROM and Yes no lymphadenopathy Lymphatic: no lymphadenopathy noted Chest Chest palpation & inspection: normal inspection of the chest Resp Effort & Inspection: normal respiratory effort and able to speak in complete sentences Auscultation: clear to auscultation bilaterally, no crackles, no rales, no rhonchi and no wheezes Cardio Rate: regular rate Rhythm: regular rhythm Heart sounds: S1 normal heart sound present and S2 normal heart sound present GI Inspection: Yes normal to inspection Back/Spine/Pelvis Other: Mild tenderness palpation along the lumbar musculature, as well as left SI joint. Skin General skin exam: no rashes or lesions noted Trauma: no lacerations or abrasions Wounds: no wounds Neuro General: patient oriented x3 and moves all extremities Cranial nerves: Yes Equal, round and reactive pupils present Extrem Other: Strength 5/5 in lower extremities, no pedal edema, no calf tenderness. General: Yes normal to inspection Right upper extremity: normal to inspection Left upper extremity: normal to inspection Right lower extremity: normal to inspection Left lower extremity: normal to inspection Medications Administered Discontinued Medications Generic Name Dose Route Start Last Admin Trade Name Freq PRN Reason Stop Dose Admin Tizanidine HCl 4 mg 06/27/25 13:47 06/27/25 15:13 Tizanidine Hcl 4 Mg Tablet PO 06/27/25 13:48 4 mg ONCE ONE Administration Medical Decision Making Medical Decision Making [facility] Narrative: 65 yo female with a history of diabetes, sciatica, thoracic spondylosis, bipolar disorder, and vertigo presents to the ED today with 2 months of progressive burning bilateral leg pain and new difficulty ambulating. Exam and history are concerning for possible lumbar radiculopathy or spinal stenosis. Electrolyte derangement. Cauda equina syndrome considered but less likely as patient remains perineal sensation and denies incontinence. Diabetic neuropathy possible but less likely given acute worsening and bladder fullness sensation. No evidence of infection or trauma. Will obtain labs to rule out any electrolyte derangement. >> labs returned, she has no leukocytosis, stable H&H, chemistry revealing no significant electrolyte derangement. She does have slight elevation in AST, ALT, and alk phos, similar to previous. CK 42. Ordered tizanidine which took while to obtained from the pharmacy however patient is ambulatory, walking around the entire emergency department asking to be discharged. The nurse was able to give her a dose here today. She does not want to wait to see if her symptoms improve as she is very eager for discharge. Given that she is ambulatory, will discharge. Given strict return precautions, encouraged to follow-up with [facility]. She understands and agrees with plan. Patient stable for discharge Differential Diagnosis Differential Diagnoses: The differential diagnosis associated with the presentation includes See above Admission/Observation Consideration of admission/observation: Escalation of care including admission/observation considered Lab Data [facility] Lab Attestation statement: I reviewed the patient's lab results. See MDM 06/27/25 13:58 06/27/25 13:58 Labs: Lab Results 06/27/25 06/27/25 Range/Units 12:41 13:58 WBC 5.9 (4.8-10.8) X10*3/uL RBC 4.86 (4.20-5.50) X10*6/uL Hgb 14.5 (12.0-16.0) g/dl Hct 41.3 (37.0-47.0) % MCV 85.0 (80.0-98.0) fL MCH 29.8 (27.0-33.0) pg MCHC 35.1 H (31.0-35.0) g/dl RDW 12.5 (11.0-16.0) % Plt Count 142 L (160-400) X10*3/uL MPV 11.1 (9.4-12.3) fL Immature Gran % (Auto) 0.2 (0.0-0.4) % Neut % (Auto) 44.9 L (45-73) % Lymph % (Auto) 45.1 H (20-40) % [place] % (Auto) 7.1 (2-11) % Eos % (Auto) 2.2 (0-4) % Baso % (Auto) 0.5 (0-2) % Lymph # (Auto) 2.7 (1.2-4.9) X10*3/uL [place] # (Auto) 0.4 (0.1-1.2) X10*3/uL Eos # (Auto) 0.1 (0.0-0.4) X10*3/uL Baso # (Auto) 0.0 (0.0-0.2) X10*3/uL Abs Immat Gran (auto) 0.01 (0.00-0.03) X10*3/uL Absolute Neuts (auto) 2.6 (2.0-8.3) x10*3/uL Absolute Nucleated RBC 0.000 (0.0-0.012) X10*3/uL Nucleated RBC % (auto) 0.0 (0.0-0.2) /100WBC Sodium 137 (135-145) mmol/L Potassium 4.2 (3.3-5.1) mmol/L Chloride 106 (96-108) mmol/L Carbon Dioxide 26 (22-29) mmol/L Anion Gap 9 L (12-20) BUN 7 L (9-16) mg/dL Creatinine 0.52 (0.5-1.4) mg/dL Estim Creat Clear Calc 87.9 Estimated GFR > 60 POC Glucose 282 H (60-115) mg/dL Random Glucose 261 H (60-115) mg/dL Calcium 9.3 (8.4-10.2) mg/dL Magnesium 1.8 (1.6-2.6) mg/dL Total Bilirubin 0.9 (0.0-1.0) mg/dL Direct Bilirubin 0.3 (0.0-0.5) mg/dL AST 43 H (5-31) U/L ALT 44 H (0-31) U/L Alkaline Phosphatase 130 H (39-117) U/L Total Creatine Kinase 42 (26-140) U/L Total Protein 7.1 (6.5-8.0) g/dL Albumin 4.2 (3.5-5.0) g/dL Radiology Impression Discussion of test interpretation with radiology: I have reviewed the radiologist's reading. External Record Review External record reviewed: Inpatient record, Office record, Outpatient record, Prior outpatient labs, Prior outpatient radiology, Primary care record and Outside ED record Discharge Plan Discharge Clinical Impression: Neuropathy Patient Disposition: Home, Self-Care Instructions: Peripheral Neuropathy (ED) Additional Instructions: You were seen in the emergency department due to bilateral leg burning. This is a chronic issue for you. I encouraged you to follow-up with your [facility] provider. We wanted to medicate you with tizanidine while here in the emergency department today however pharmacy was delayed therefore we could not medicate you here in the department and you wanted to leave prior to being medicated. You had informed us that you already were sent tizanidine at home, please take this as prescribed. Your blood work was reassuring today. If any new or worsening symptoms occur including but not limited to worsening pain, severe chest pain or shortness of breath, please seek emergent care. Prescriptions: New tizanidine 4 mg capsule 4 mg PO BEDTIME PRN (Reason: muscle spasticity) 7 Days Qty: 7 0RF No Action ibuprofen 600 mg tablet 600 mg PO TID PRN (Reason: pain) 90 Days Qty: 270 3RF (DME) pen needle, diabetic [Advocate Pen Needle] 31 gauge x 5/16 needle See Rx Instructions .Route Qty: 100 3RF Rx Instructions: Use 1 pen needle once a day (DME) Assure ID Pen Needle 30 gauge x 5/16 needle See Rx Instructions .ROUTE .MEDSUPPLY Qty: 100 6RF Rx Instructions: Use 1 pen needle once a day tramadol 50 mg tablet 50 mg PO Q8H PRN (Reason: pain) 10 Days Qty: 30 0RF cholecalciferol (vitamin D3) 25 mcg (1,000 unit) capsule 25 mcg PO DAILY 90 Days Qty: 90 1RF carisoprodol 350 mg tablet 350 mg PO DAILY PRN (Reason: Muscle Spasm) 30 Days Qty: 30 0RF gabapentin 300 mg capsule 300 mg PO TID 30 Days Qty: 90 2RF tizanidine 4 mg tablet 4 mg PO BEDTIME PRN (Reason: muscle spasticity) Qty: 30 0RF Rx Instructions: patient may pay out of pocket (DME) pen needle, diabetic 31 gauge x 3/16 needle See Rx Instructions topical QID Qty: 50 11RF Rx Instructions: As directed cyanocobalamin (vitamin B-12) 1,000 mcg Tablet 1,000 mcg PO DAILY vitamin B complex Tablet 1 tab PO DAILY alpha lipoic acid 600 mg Capsule 600 mg PO BIDAC mupirocin 2 % ointment 1 appl topical BID Qty: 15 0RF diazepam 10 mg tablet 10 mg PO BID PRN (Reason: Muscle Spasm) fenofibrate 54 mg tablet 54 mg PO DAILY 90 Days Qty: 90 1RF lidocaine 5 % adhesive patch,medicated 1 patch topical DAILY Qty: 15 0RF Rx Instructions: leave on most painful area for up to 12 hrs oxcarbazepine 150 mg tablet 150 mg PO DAILY oxcarbazepine 600 mg tablet 600 mg PO DAILY PRN melatonin 10 mg tablet extended release 5 mg PO BEDTIME PRN clotrimazole-betamethasone 1-0.05 % cream 1 appl topical BID 7 Days Qty: 45 0RF Rx Instructions: Not to be combined with other topical corticosteroids. Trulicity 4.5 mg/0.5 mL pen injector 4.5 mg subcut QWEEK Qty: 6 3RF acarbose 25 mg tablet 25 mg PO TID Qty: 270 3RF (DME) blood-glucose meter [FreeStyle Lite Meter] Kit See Rx Instructions .Route Qty: 1 0RF Rx Instructions: test 3 times per day (DME) lancets [FreeStyle Lancets] 28 gauge misc See Rx Instructions .Route Qty: 300 3RF Rx Instructions: three times daily (DME) FreeStyle Lite Strips Strip See Rx Instructions .ROUTE .COMPLEX Qty: 300 3RF Dose Instruction: DIRECTED Rx Instructions: three times daily (DME) FreeStyle Avi 3 Plus Sensor Device See Rx Instructions .Route Qty: 6 3RF Rx Instructions: every 15 days (DME) FreeStyle Avi 3 [place] Misc See Rx Instructions .Route Qty: 1 0RF Rx Instructions: continuous tizanidine 4 mg capsule 4 mg PO BEDTIME PRN (Reason: muscle spasticity) Qty: 30 0RF Rx Instructions: may pay out of pocket Humalog KwikPen Insulin 200 unit/mL (3 mL) insulin pen 25 unit subcut TID 90 Days Qty: 45 3RF Interventions: ED Discharge Assessment Last Done: 06/27/25 15:18 Discharge Date/Time: 06/27/25 15:22 Print Language: Moldovan
[2025-06-27 14:00] VITALS: BP 186/80; PULSE 86; RESP 18; O2SAT 97
[2025-06-27 14:04] LABS: MANUAL DIFF FLAG NO
[2025-06-27 14:05] LABS: Hematocrit 41.3 % (37.0-47.0); Hemoglobin 14.5 g/dl (12.0-16.0); Imm Gran Abs Auto 0.01 X10*3/uL (0.00-0.03); Imm Gran Pct Auto 0.2 % (0.0-0.4); Lymphocytes Absolute Auto 2.7 X10*3/uL (1.2-4.9); Mean Corpuscular HGB Conc 35.1 g/dl (31.0-35.0); Mean Corpuscular Hemoglobin 29.8 pg (27.0-33.0); Mean Corpuscular Volume 85.0 fL (80.0-98.0); NRBC Abs Auto 0.000 X10*3/uL (0.0-0.012); NRBC Pct Auto 0.0 /100WBC (0.0-0.2); Platelet Count 142 X10*3/uL (160-400); Red Blood Count 4.86 X10*6/uL (4.20-5.50); White Blood Count 5.9 X10*3/uL (4.8-10.8)
[2025-06-27 14:21] LABS: Alanine Aminotransferase 44 U/L (0-31); Albumin Level 4.2 g/dL (3.5-5.0); Alkaline Phosphatase 130 U/L (39-117); Anion Gap 9 (12-20); Aspartate Amino Transferase 43 U/L (5-31); Blood Urea Nitrogen 7 mg/dL (9-16); Calcium 9.3 mg/dL (8.4-10.2); Carbon Dioxide 26 mmol/L (22-29); Chloride 106 mmol/L (96-108); Creatinine Clr Calc Pharmacy 87.9; Estimated Glomerular Filt Rate > 60; Magnesium 1.8 mg/dL (1.6-2.6); Potassium 4.2 mmol/L (3.3-5.1); Sodium 137 mmol/L (135-145); Total Protein 7.1 g/dL (6.5-8.0)
--- NOTE | 2025-06-27 15:15 | PC.NURSE ---
Pt taking tizanidine PO. Wants to DC now. Son here to give her a ride.
[2025-06-27 15:18] VITALS: BP 180/77; PULSE 86; RESP 18; TEMP 36.5; O2SAT 97
== END 2025-06-27 15:22 | disposition home or self-care (01) ==
PROVIDERS: Physician Assistant Medical; Emergency Provider Emergency Medicine Emergency Medical Services; PCP Internal Medicine
DX: E11.40 Type 2 diabetes mellitus with diabetic neuropathy, unspecified (principal); M79.604 Pain in right leg; M79.605 Pain in left leg; E11.9 Type 2 diabetes mellitus without complications; Z79.4 Long term (current) use of insulin; Z87.891 Personal history of nicotine dependence; Z79.899 Other long term (current) drug therapy
CPT/HCPCS: 36415; 80048; 80076; 82550; 82947; 83735; 85025; 99283

== ENCOUNTER 2025-06-27 13:41 | Outpatient (AMB) | payer OTHER, SELFPAY ==
--- NOTE | 2025-06-27 15:04 | MHC.PC.OV ---
Intake Visit Reasons: T2DM Allergies insulin glargine (From Lantus U-100 Insulin) Allergy (Severe, Verified 06/27/25 12:14) paralized nickel Allergy (Severe, Verified 06/27/25 12:14) Rash Penicillins Allergy (Severe, Verified 06/27/25 12:14) Hives acetaminophen (Percocet) Allergy (Intermediate, Verified 06/27/25 12:14) vomiting cyclobenzaprine (CYCLOBENZAPRINE) Allergy (Intermediate, Verified 06/27/25 12:14) HEADACHE,DIZZINESS divalproex sodium (Depakote) Allergy (Intermediate, Verified 06/27/25 12:14) increase liver enzymes methocarbamol (METHOCARBAMOL) Allergy (Intermediate, Verified 06/27/25 12:14) TICS oxycodone (From PERCOCET) Allergy (Intermediate, Verified 06/27/25 12:14) VOMITING insulin degludec (From Tresiba FlexTouch U-100) Adverse Reaction (Severe, Verified 06/27/25 12:14) loss of balance, body aches liraglutide (From Victoza) Adverse Reaction (Severe, Verified 06/27/25 12:14) hypoglycemia lisinopril Adverse Reaction (Severe, Verified 06/27/25 12:14) Dizziness risperidone (RISPERIDONE) Adverse Reaction (Severe, Verified 06/27/25 12:14) CHEST PAIN baclofen Adverse Reaction (Intermediate, Verified 06/27/25 12:14) Palpitations canagliflozin (Invokana) Adverse Reaction (Intermediate, Verified 06/27/25 12:14) confusion dulaglutide (Trulicity) Adverse Reaction (Intermediate, Verified 06/27/25 12:14) abdominal bloating, numbness, myalgia Narcotics Allergy (Mild, Uncoded 06/27/25 12:14) dizzy, sick Tobacco use date assessed: 05/09/25 Dental Screening Dental Screen Date: 05/09/25 HPI HPI Comments History of Present Illness Details This is a 63-year-old female with diabetes, bipolar, cirrhosis, polyarthralgia and neuropathy who presented to the endocrine clinic today for her scheduled appointment While in the waiting room the patient started crying -she says she could not walk to the exam room and would like an ambulance to go to the ER When I went out to see her in the waiting room she c/o 3 day history of extreme burning hot pain in the lower extremities b/l . Endorsing leg and calf pain. Extremities were warm and well perfused. She reiterated her need to go to the ER and an ambulance was called. The patient was monitored and stable while she waited in the waiting room ROS Extreme pain bilateral lower leg and feets PHYSICAL EXAM: GENERAL: Alert and oriented x 3. Teary, grimacing CARDIOVASCULAR: Regular rate and rhythm. EXTREMITIES: +DP pulses SKIN: No rashes or lesions. Warm. PSYCHIATRIC: Cooperative. [facility] Medical History (Updated 05/29/25 @ 14:18 by Shonda Conklin CNM) Encounter for well woman exam with routine gynecological exam Hyperlipidemia LDL goal <70 Diabetes mellitus Physical exam Vaginal burning Vaginal itching Basilar migraine Acute vaginitis Encounter for annual routine gynecological examination Hospital discharge follow-up Shortness of breath COVID-19 Dysuria Vaginal irritation Herpes simplex virus (HSV) infection Intertrigo Diabetes mellitus Migraine with aura Hypertension Renal calculi Chest pain Mixed hyperlipidemia Fibromyalgia Chronic neck pain Nickel allergy Nickel dermatitis Polyarthralgia Surgical History H/O esophagogastroduodenoscopy History of prior ablation treatment History of discectomy History of laparoscopy History of tubal ligation History of colonoscopy History of laparoscopic cholecystectomy History of section Family History Father Prostate cancer Diabetes High cholesterol HTN (hypertension) Mother Liver problem Diabetes High cholesterol HTN (hypertension) Family/Other Diabetes High cholesterol HTN (hypertension) Cancer Social History Household Members: Children Household Members Other:: Son Housing: Apartment Alcohol intake: never Comment: pt refuses bed/chair alarm Patient Tobacco Use Status: Former Tobacco user Tobacco use type: Cigarette Years Smoked: 18 e-Cigarette/Vaping Use: Never Used Second Hand Smoke Exposure: No service: No Current occupational status: disabled Sexual orientation: Straight/Heterosexual Gender identity: Female Cognitive needs: No Hearing needs: No Vision needs: No Questionnaire Thrive Questionnaire Date Thrive assessed: 05/09/25 ABBY-7 AMB Questionnaire ABBY-7 Date ABBY - 7 assessed: 10/03/24 Source: Developed by Drea KrugerW. Anson, Diego Corcoran and colleagues, with an educational javier from [employer]. Physical exam (Primary Care) Tobacco/Smoking Status: Tobacco use Status Tobacco use date assessed 05/09/25 05/16/25 14:19 Patient Tobacco Use Status Former Tobacco user 05/16/25 14:19 Tobacco use type Cigarette 05/16/25 14:19 e-Cigarette/Vaping Use Never Used 05/16/25 14:19 Thrive Assessment: Date of Thrive Assessment Date Thrive assessed 05/09/25 05/16/25 14:19 Coding Level of Care Code Admin Sign Off/No Billing Diagnoses Neuropathic pain M79.2 Assessment & Plan Assessment & Plan (1) Neuropathic pain: Code(s): M79.2 - Neuralgia and neuritis, unspecified Plan Bilateral LE pain. Severe. Ambulance was called and sign off given to EMS
== END 2025-06-27 15:11 | disposition home or self-care (01) ==
LOC: HO.ENCR 13:42
PROVIDERS: PCP Internal Medicine; Visit Provider Internal Medicine
DX: M79.2 Neuralgia and neuritis, unspecified (principal)

== ENCOUNTER 2025-07-04 08:54 | Outpatient (AMB) | payer OTHER, SELFPAY ==
--- NOTE | 2025-07-04 09:05 | A.OFFVIS_ITS ---
Vital Signs 07/04/25 09:08 Height 4 ft 11 in Weight 138 lb 14.259 oz BMI 28.0 BP 142/78 H Blood Pressure Location Rt brachial Position Sitting Pulse 64 Pulse Source Pulse Oximeter Pulse Oximetry (%) 96 Oxygen Delivery Method Room Air Intake Visit Reasons: T2DM Intake Note: Patient presents today for a follow-up on Type 2 Diabetes Mellitus: Last Diabetic eye exam was on: DUE Last Podiatry exam was on: Patient does not see a Tool Analyst Most recent HbA1c: 11.6%, 05/09/2025 Random Glucose- 299 mg/dL, Today Sand Polisher Required: No Accompanied by: Self / Same As Patient Allergies insulin glargine (From Lantus U-100 Insulin) Allergy (Severe, Verified 07/04/25 09:06) paralized nickel Allergy (Severe, Verified 07/04/25 09:06) Rash Penicillins Allergy (Severe, Verified 07/04/25 09:06) Hives acetaminophen (Percocet) Allergy (Intermediate, Verified 07/04/25 09:06) vomiting cyclobenzaprine (CYCLOBENZAPRINE) Allergy (Intermediate, Verified 07/04/25 09:06) HEADACHE,DIZZINESS divalproex sodium (Depakote) Allergy (Intermediate, Verified 07/04/25 09:06) increase liver enzymes methocarbamol (METHOCARBAMOL) Allergy (Intermediate, Verified 07/04/25 09:06) TICS oxycodone (From PERCOCET) Allergy (Intermediate, Verified 07/04/25 09:06) VOMITING insulin degludec (From Tresiba FlexTouch U-100) Adverse Reaction (Severe, Verified 07/04/25 09:06) loss of balance, body aches liraglutide (From Victoza) Adverse Reaction (Severe, Verified 07/04/25 09:06) hypoglycemia lisinopril Adverse Reaction (Severe, Verified 07/04/25 09:06) Dizziness risperidone (RISPERIDONE) Adverse Reaction (Severe, Verified 07/04/25 09:06) CHEST PAIN baclofen Adverse Reaction (Intermediate, Verified 07/04/25 09:06) Palpitations canagliflozin (Invokana) Adverse Reaction (Intermediate, Verified 07/04/25 09:06) confusion dulaglutide (Trulicity) Adverse Reaction (Intermediate, Verified 07/04/25 09:06) abdominal bloating, numbness, myalgia Narcotics Allergy (Mild, Uncoded 07/04/25 09:06) dizzy, sick HPI Comments Details: This is a 63-year-old female with type 2 diabetes presenting for follow up Med Hx: bipolar disorder, cirrhosis, hyperlipidemia, polyarthralgia 04/2025 A1c 11.6%. 02/14/2025-11.8% improved from 14.0%. No CGM: sensor was causing bleeding. She forgot to bring her meter today. She reports improvement in recent blood glucose readings-most readings in 200s per patient Current prescribed medications: Humalog 25 TID, Trulicity 4.5 weekly. She was prescribed Toujeo 10 qhs (never started). Did not like lantus. Past medications: acarbose, actos (says gave her hypoglycemia), glipizide (says gave her hypoglycemia), Victoza (hypoglycemia), Tresiba (balance issues), Lantus (muscle weakness), SGLT-vaginal rash, metformin -GI side effects. Micro/Macrovasular complications: severe neuropathy-says marilyn stopped working. tizanidine is helping along with gabapentin Eye exam due Podiatry-declines ROS CONSTITUTIONAL: Denies weight loss, fever and chills. HEENT: Denies changes in vision and hearing. RESPIRATORY: Denies SOB and cough. CV: Denies palpitations and CP GI: Denies abdominal pain, nausea, vomiting and diarrhea : Denies dysuria and urinary frequency. MSK:Low back pain with left sided sciatica SKIN: Denies rash and pruritus. NEUROLOGICAL: see HPI PSYCHIATRIC: Denies recent changes in mood. PHYSICAL EXAM: GENERAL: Alert and oriented x 3. NAD EYES: EOMI. Anicteric. HENT: Moist mucous membranes. No scleral icterus. No cervical lymphadenopathy. LUNGS: Clear to auscultation bilaterally. CARDIOVASCULAR: Regular rate and rhythm. No JVD. ABDOMEN: Soft, obese, non-tender +bs EXTREMITIES: No edema. +DP pulses b/l. Non-tender. SKIN: Mild chronic venous stasis changes NEUROLOGIC: No focal neurological deficits. CN II-XII grossly intact PSYCHIATRIC: Cooperative. Appropriate mood and affect [facility], [facility] Medical History Encounter for well woman exam with routine gynecological exam Hyperlipidemia LDL goal <70 Diabetes mellitus Physical exam Vaginal burning Vaginal itching Basilar migraine Acute vaginitis Encounter for annual routine gynecological examination Hospital discharge follow-up Shortness of breath COVID-19 Dysuria Vaginal irritation Herpes simplex virus (HSV) infection Intertrigo Diabetes mellitus Migraine with aura Hypertension Renal calculi Chest pain Mixed hyperlipidemia Fibromyalgia Chronic neck pain Nickel allergy Nickel dermatitis Polyarthralgia Surgical History H/O esophagogastroduodenoscopy History of prior ablation treatment History of discectomy History of laparoscopy History of tubal ligation History of colonoscopy History of laparoscopic cholecystectomy History of section Family History Father Prostate cancer Diabetes High cholesterol HTN (hypertension) Mother Liver problem Diabetes High cholesterol HTN (hypertension) Family/Other Diabetes High cholesterol HTN (hypertension) Cancer Social History Household Members: Children Household Members Other:: Son Housing: Apartment Alcohol intake: never Comment: pt refuses bed/chair alarm Patient Tobacco Use Status: Former Tobacco user Tobacco use type: Cigarette Years Smoked: 18 e-Cigarette/Vaping Use: Never Used Second Hand Smoke Exposure: No service: No Current occupational status: disabled Sexual orientation: Straight/Heterosexual Gender identity: Female Cognitive needs: No Hearing needs: No Vision needs: No Physical Exam Vital Signs: Last Vital Signs Pulse 64 07/04/25 09:08 BP 142/78 H 07/04/25 09:08 Pulse Ox 96 07/04/25 09:08 Oxygen Delivery Method Room Air 07/04/25 09:08 BMI result Body Mass Index 28.0 Assessment & Plan Assessment & Plan (1) Diabetes mellitus: Code(s): E11.9 - Type 2 diabetes mellitus without complications Category: Medical Qualifiers: Diabetes mellitus type: type 2 Diabetes mellitus prison insulin use: with prison use Diabetes mellitus complication status: with hyperglycemia Qualified Code(s): E11.65 - Type 2 diabetes mellitus with hyperglycemia; Z79.4 - 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 (current) use of insulin (2) Long-term current use of insulin for diabetes mellitus: Code(s): Z79.4 - 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; E11.9 - Type 2 diabetes mellitus without complications Category: Medical (3) Diabetic neuropathy: Code(s): E11.40 - Type 2 diabetes mellitus with diabetic neuropathy, unspecified Category: Medical Qualifiers: Diabetes mellitus type: type 2 Diabetes mellitus complication detail: diabetic polyneuropathy Qualified Code(s): E11.42 - Type 2 diabetes mellitus with diabetic polyneuropathy Plan Diabetes, uncontrolled Reports improved glucose readings and medication compliance, unfortunately does not have her meter with her today Continue current medications-return in one month for A1C with meter Treat any hypoglycemia by rules of 15s Neuropathy-tizanidine increased to BID. Advised of risk of sedation, not to drive, operate machinery etc. Continue gabapentin Medications: Changed From tizanidine 4 mg PO BEDTIME 7 days PRN 7 caps 0RF muscle spasticity To tizanidine 4 mg PO BID 180 caps 1RF muscle spasticity 90 days Refilled insulin lispro (Humalog KwikPen U-200 Insulin) 25 units (0.125 mL) subcut TID 45 mL 3RF 90 days E11.65 - Type 2 diabetes mellitus with hyperglycemia, Z79.4 - 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 Discontinued acarbose Discontinued Reason: Doctor's Order 25 mg PO TID 270 tabs 3RF Coding Level of Care Code Est Pt Level 4 (06148) Diagnoses Type 2 diabetes mellitus with hyperglycemia, with long-term current use of insulin E11.65; Z79.4 Diabetes mellitus type: type 2 Diabetes mellitus 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
[2025-07-04 09:08] VITALS: BP 142/78; PULSE 64; O2SAT 96; BMI 28.0
[2025-07-04 09:20] LABS: Glucose, Whole Blood 299 mg/dL (60-115)
== END 2025-07-04 09:37 | disposition home or self-care (01) ==
LOC: HO.ENCR 08:55
PROVIDERS: PCP Internal Medicine; Visit Provider Internal Medicine
DX: E11.65 Type 2 diabetes mellitus with hyperglycemia (principal); Z79.4 Long term (current) use of insulin; E11.42 Type 2 diabetes mellitus with diabetic polyneuropathy

== ENCOUNTER → 2025-07-04 08:54 | Outpatient (BNVA) | payer OTHER, SELFPAY | PROVIDERS: PCP Internal Medicine; Visit Provider Internal Medicine | DX: E11.65 Type 2 diabetes mellitus with hyperglycemia (principal); Z79.4 Long term (current) use of insulin; E78.5 Hyperlipidemia, unspecified; E11.42 Type 2 diabetes mellitus with diabetic polyneuropathy | CPT/HCPCS: 82947; 99212 ==

== ENCOUNTER 2025-08-01 09:27 | Outpatient (AMB) | payer OTHER, SELFPAY ==
--- NOTE | 2025-08-01 09:29 | A.OFFVIS_ITS ---
Vital Signs 08/01/25 09:41 Height 4 ft 11 in Weight 138 lb 14.259 oz BMI 28.0 BP 146/84 H Blood Pressure Location Rt brachial Position Sitting Pulse 98 Pulse Source Pulse Oximeter Pulse Oximetry (%) 96 Oxygen Delivery Method Room Air Intake Visit Reasons: DM- repeat A1C needed Intake Note: Patient presents today for a follow-up on Type 2 Diabetes Mellitus: Last Diabetic eye exam was on: DUE, patient needs to call to make an appt Last Podiatry exam was on: Patient does not see a Substation Wireman Most recent HbA1c: 11.2%, 08/01/2025 Random Glucose- 432 mg/dL, Today, patient stated she had breakfast 40 mins ago. Tierce Filler Required: No Accompanied by: Self / Same As Patient Allergies insulin glargine (From Lantus U-100 Insulin) Allergy (Severe, Verified 08/01/25 09:41) paralized nickel Allergy (Severe, Verified 08/01/25 09:41) Rash Penicillins Allergy (Severe, Verified 08/01/25 09:41) Hives acetaminophen (Percocet) Allergy (Intermediate, Verified 08/01/25 09:41) vomiting cyclobenzaprine (CYCLOBENZAPRINE) Allergy (Intermediate, Verified 08/01/25 09:41) HEADACHE,DIZZINESS divalproex sodium (Depakote) Allergy (Intermediate, Verified 08/01/25 09:41) increase liver enzymes methocarbamol (METHOCARBAMOL) Allergy (Intermediate, Verified 08/01/25 09:41) TICS oxycodone (From PERCOCET) Allergy (Intermediate, Verified 08/01/25 09:41) VOMITING insulin degludec (From Tresiba FlexTouch U-100) Adverse Reaction (Severe, Verified 08/01/25 09:41) loss of balance, body aches liraglutide (From Victoza) Adverse Reaction (Severe, Verified 08/01/25 09:41) hypoglycemia lisinopril Adverse Reaction (Severe, Verified 08/01/25 09:41) Dizziness risperidone (RISPERIDONE) Adverse Reaction (Severe, Verified 08/01/25 09:41) CHEST PAIN baclofen Adverse Reaction (Intermediate, Verified 08/01/25 09:41) Palpitations canagliflozin (Invokana) Adverse Reaction (Intermediate, Verified 08/01/25 09:41) confusion dulaglutide (Trulicity) Adverse Reaction (Intermediate, Verified 08/01/25 09:41) abdominal bloating, numbness, myalgia Narcotics Allergy (Mild, Uncoded 08/01/25 09:41) dizzy, sick HPI Comments Details: This is a 65-year-old female with type 2 diabetes presenting for follow up Med Hx: bipolar disorder, cirrhosis, hyperlipidemia, polyarthralgia 08/01/25 11.2 from 04/2025 A1c 11.6%. 02/14/2025-11.8% improved from 14.0%. No CGM: sensor was causing bleeding. She forgot to bring her meter today. She re ports improvement in recent blood glucose readings-most readings in 200s per patient She has been able to lose some weight since her last visit Current prescribed medications: Humalog 25 TID, Trulicity 4.5 weekly. Past medications: acarbose, actos (says gave her hypoglycemia), glipizide (says gave her hypoglycemia), Victoza (hypoglycemia), Tresiba (balance issues), Lantus (muscle weakness), SGLT-vaginal rash, metformin -GI side effects. Toujeo 10 qhs (never started). Did not like lantus. Micro/Macrovasular complications: severe neuropathy-says marilyn stopped working. tizanidine is helping along with gabapentin Eye exam due Podiatry-declines ROS CONSTITUTIONAL: Denies weight loss, fever and chills. HEENT: Denies changes in vision and hearing. RESPIRATORY: Denies SOB and cough. CV: Denies palpitations and CP GI: Denies abdominal pain, nausea, vomiting and diarrhea : Denies dysuria and urinary frequency. MSK:Low back pain with left sided sciatica SKIN: Denies rash and pruritus. NEUROLOGICAL: see HPI PSYCHIATRIC: Denies recent changes in mood. PHYSICAL EXAM: GENERAL: Alert and oriented x 3. NAD EYES: EOMI. Anicteric. HENT: Moist mucous membranes. No scleral icterus. No cervical lymphadenopathy. LUNGS: Clear to auscultation bilaterally. CARDIOVASCULAR: Regular rate and rhythm. No JVD. ABDOMEN: Soft, obese, non-tender +bs EXTREMITIES: No edema. +DP pulses b/l. Non-tender. SKIN: Mild chronic venous stasis changes NEUROLOGIC: No focal neurological deficits. CN II-XII grossly intact PSYCHIATRIC: Cooperative. Appropriate mood and affect [facility] Medical History Encounter for well woman exam with routine gynecological exam Hyperlipidemia LDL goal <70 Diabetes mellitus Physical exam Vaginal burning Vaginal itching Basilar migraine Acute vaginitis Encounter for annual routine gynecological examination Hospital discharge follow-up Shortness of breath COVID-19 Dysuria Vaginal irritation Herpes simplex virus (HSV) infection Intertrigo Diabetes mellitus Migraine with aura Hypertension Renal calculi Chest pain Mixed hyperlipidemia Fibromyalgia Chronic neck pain Nickel allergy Nickel dermatitis Polyarthralgia Surgical History H/O esophagogastroduodenoscopy History of prior ablation treatment History of discectomy History of laparoscopy History of tubal ligation History of colonoscopy History of laparoscopic cholecystectomy History of section Family History Father Prostate cancer Diabetes High cholesterol HTN (hypertension) Mother Liver problem Diabetes High cholesterol HTN (hypertension) Family/Other Diabetes High cholesterol HTN (hypertension) Cancer Social History Household Members: Children Household Members Other:: Son Housing: Apartment Alcohol intake: never Comment: pt refuses bed/chair alarm Patient Tobacco Use Status: Former Tobacco user Tobacco use type: Cigarette Years Smoked: 18 e-Cigarette/Vaping Use: Never Used Second Hand Smoke Exposure: No service: No Current occupational status: disabled Sexual orientation: Straight/Heterosexual Gender identity: Female Cognitive needs: No Hearing needs: No Vision needs: No Physical Exam Vital Signs: Last Vital Signs Pulse 98 08/01/25 09:41 BP 146/84 H 08/01/25 09:41 Pulse Ox 96 08/01/25 09:41 Oxygen Delivery Method Room Air 08/01/25 09:41 BMI result Body Mass Index 28.0 Results AMB Hemoglobin A1c AMB Hemoglobin A1c 11.2 % Last Edit by CHAI Reyes on 08/01/25 09:4 9 Results Reviewed Results Reviewed: Laboratory Last Values Glucose (Clinic) 432 mg/dL (60-115) H* 08/01/25 09:37 Assessment & Plan Assessment & Plan (1) Diabetes mellitus with hyperglycemia, with long-term current use of insulin: Code(s): E11.65 - Type 2 diabetes mellitus with hyperglycemia; 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.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 Category: Medical Qualifiers: Diabetes mellitus type: type 2 Qualified Code(s): E11.65 - Type 2 diabetes mellitus with hyperglycemia; Z79.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 Plan 65 year old for follow up diabetes Continue to be uncontrolled but slow improvement over time Intolerant to multiple medicaitons She will increase her humalog to 30 units TID and continue trulicity Treat hypoglycemia by r/o 15s Neuropathy-c/w gabapentin, tizanidine Orders: Orders AMB Hemoglobin A1c Today E11.65 - Type 2 diabetes mellitus with hyperglycemia, Z79.4 - [facility] (current) use of insulin Medications: Changed From tizanidine [id number] [facility] [id number] Member [id number] 4 mg PO BID PRN 180 tabs 0RF muscle spasticity To tizanidine [id number] [id number] Member [id number] 4 mg PO TID PRN 90 tabs 3RF muscle spasticity 30 days From insulin lispro (Humalog KwikPen U-200 Insulin) 25 units (0.125 mL) subcut TID 90 days 45 mL 3RF E11.65 - Type 2 diabetes mellitus with hyperglycemia, Z79.4 - [facility] (current) use of insulin To insulin lispro (Humalog KwikPen U-200 Insulin) 30 units (0.15 mL) subcut TID 40.5 mL 3RF 90 days E11.65 - Type 2 diabetes mellitus with hyperglycemia, Z79.4 - [facility] (current) use of insulin Refilled gabapentin 300 - 600 mg (1 - 2 x 300 mg) PO TID 270 caps 2RF 90 days On Hold carisoprodol Hold Comment: Doctor's Order 350 mg PO DAILY PRN 30 tabs 0RF Muscle Spasm 30 days Coding Level of Care Code Est Pt Level 4 (58659) Diagnoses Type 2 diabetes mellitus with hyperglycemia, with long-term current use of insulin E11.65; Z79.4 Diabetes mellitus type: type 2
[2025-08-01 09:41] VITALS: BP 146/84; PULSE 98; O2SAT 96; BMI 28.0
[2025-08-01 09:41] LABS: Glucose, Whole Blood 432 mg/dL (60-115)
== END 2025-08-01 10:02 | disposition home or self-care (01) ==
LOC: HO.ENCR 09:28
PROVIDERS: PCP Internal Medicine; Visit Provider Internal Medicine
DX: E11.65 Type 2 diabetes mellitus with hyperglycemia (principal); Z79.4 Long term (current) use of insulin

== ENCOUNTER → 2025-08-01 09:27 | Outpatient (BNVA) | payer OTHER, SELFPAY | PROVIDERS: PCP Internal Medicine; Visit Provider Internal Medicine | DX: E11.40 Type 2 diabetes mellitus with diabetic neuropathy, unspecified (principal); E11.65 Type 2 diabetes mellitus with hyperglycemia; Z79.4 Long term (current) use of insulin; Z79.85 Long-term (current) use of injectable non-insulin antidiabetic drugs | CPT/HCPCS: 82947; 83036; 99212 ==

== ENCOUNTER 2025-09-11 12:47 | Outpatient (AMB) | payer OTHER, SELFPAY ==
--- NOTE | 2025-09-11 12:53 | MHC.PC.OV ---
Vital Signs 09/11/25 12:54 09/11/25 13:00 Height 4 ft 11 in Weight 135 lb 6 oz BMI 27.3 BP 140/80 H 138/80 Blood Pressure Location Lt brachial Lt brachial Position Sitting Sitting Pulse 101 H Pulse Source Pulse Oximeter Temp 96.8 F Temp Source Temporal Artery Scan Pulse Oximetry (%) 98 Oxygen Delivery Method Room Air Intake Visit Reasons: Follow up Intake Note: Patient is here to follow up on DM, HLD,. Braid Folder Required: No Graphic Art Sales Representative: Not Required per policy Accompanied by: Self / Same As Patient Allergies insulin glargine (From Lantus U-100 Insulin) Allergy (Severe, Verified 09/11/25 13:00) paralized nickel Allergy (Severe, Verified 09/11/25 13:00) Rash Penicillins Allergy (Severe, Verified 09/11/25 13:00) Hives acetaminophen (Percocet) Allergy (Intermediate, Verified 09/11/25 13:00) vomiting cyclobenzaprine (CYCLOBENZAPRINE) Allergy (Intermediate, Verified 09/11/25 13:00) HEADACHE,DIZZINESS divalproex sodium (Depakote) Allergy (Intermediate, Verified 09/11/25 13:00) increase liver enzymes methocarbamol (METHOCARBAMOL) Allergy (Intermediate, Verified 09/11/25 13:00) TICS oxycodone (From PERCOCET) Allergy (Intermediate, Verified 09/11/25 13:00) VOMITING insulin degludec (From Tresiba FlexTouch U-100) Adverse Reaction (Severe, Verified 09/11/25 13:00) loss of balance, body aches liraglutide (From Victoza) Adverse Reaction (Severe, Verified 09/11/25 13:00) hypoglycemia lisinopril Adverse Reaction (Severe, Verified 09/11/25 13:00) Dizziness risperidone (RISPERIDONE) Adverse Reaction (Severe, Verified 09/11/25 13:00) CHEST PAIN baclofen Adverse Reaction (Intermediate, Verified 09/11/25 13:00) Palpitations canagliflozin (Invokana) Adverse Reaction (Intermediate, Verified 09/11/25 13:00) confusion dulaglutide (Trulicity) Adverse Reaction (Intermediate, Verified 09/11/25 13:00) abdominal bloating, numbness, myalgia Narcotics Allergy (Mild, Uncoded 09/11/25 13:00) dizzy, sick Medication List - Last Reconciled 09/11/25 by An Aguilar MD alpha lipoic acid 600 mg PO BIDAC carisoprodol 350 mg PO DAILY PRN 30 days Held on 08/01/25. Instructions: Doctor's Order cholecalciferol (vitamin D3) 25 mcg PO DAILY 90 days clotrimazole-betamethasone 1-0.05 % 1 appl topical BID 7 days cyanocobalamin (vitamin B-12) 1,000 mcg PO DAILY diazepam 10 mg PO BID PRN fenofibrate 54 mg PO DAILY 90 days FreeStyle Lancets (lancets) three times daily NS FreeStyle Avi 3 Plus Sensor (blood-glucose sensor) every 15 days NS FreeStyle Avi 3 [place] (blood-glucose,customs inspector,cont) continuous NS FreeStyle Lite Meter (blood-glucose meter) test 3 times per day NS FreeStyle Lite Strips (blood sugar diagnostic) three times daily NS gabapentin 300 - 600 mg (1 - 2 x 300 mg) PO TID 90 days ibuprofen 600 mg PO TID PRN 90 days insulin lispro (Humalog KwikPen U-200 Insulin) 30 units (0.15 mL) subcut TID 90 days lidocaine 5% 1 patch topical DAILY melatonin 10 mg PO BEDTIME PRN mupirocin 2% 1 appl topical BID oxcarbazepine 150 mg PO DAILY oxcarbazepine 600 mg PO DAILY PRN pen needle, diabetic (Advocate Pen Needle) Use 1 pen needle once a day pen needle, diabetic As directed pen needle, diabetic, safety (Assure ID Pen Needle) Use 1 pen needle once a day tizanidine 4 mg PO TID PRN 30 days tramadol 50 mg PO Q8H PRN 10 days Trulicity (dulaglutide) 4.5 mg (0.5 mL) subcut QWEEK NS vitamin B complex 1 tab PO DAILY Tobacco use date assessed: 09/11/25 Fall risk assessment: No Falls in past year Last assessed Fall Risk: 09/11/25 Dental Screening Dental Screen Date: 05/09/25 HPI HPI Comments History of Present Illness Details This is a 65-year-old female with bipolar disorder, cirrhosis, diabetes mellitus type 2, chronic pancreatitis, hypertension and hyperlipidemia that comes today for follow-up on her conditions. Bipolar disorder stable with medications. A1c still elevated but has improved and this is follow by Endocrinology. Chronic pancreatitis and cirrhosis has not significantly changed. Blood pressure has improved. Lipid panel will be order and her LDL goal should be less than 70. She denies any chest pain or shortness on breath. [facility] Medical History Encounter for well woman exam with routine gynecological exam Hyperlipidemia LDL goal <70 Diabetes mellitus Physical exam Vaginal burning Vaginal itching Basilar migraine Acute vaginitis Encounter for annual routine gynecological examination Hospital discharge follow-up Shortness of breath COVID-19 Dysuria Vaginal irritation Herpes simplex virus (HSV) infection Intertrigo Diabetes mellitus Migraine with aura Hypertension Renal calculi Chest pain Mixed hyperlipidemia Fibromyalgia Chronic neck pain Nickel allergy Nickel dermatitis Polyarthralgia Surgical History H/O esophagogastroduodenoscopy History of prior ablation treatment History of discectomy History of laparoscopy History of tubal ligation History of colonoscopy History of laparoscopic cholecystectomy History of section Family History Father Prostate cancer Diabetes High cholesterol HTN (hypertension) Mother Liver problem Diabetes High cholesterol HTN (hypertension) Family/Other Diabetes High cholesterol HTN (hypertension) Cancer Social History Household Members: Children Household Members Other:: Son Housing: Apartment Alcohol intake: never Comment: pt refuses bed/chair alarm Patient Tobacco Use Status: Former Tobacco user Tobacco use type: Cigarette Years Smoked: 18 e-Cigarette/Vaping Use: Never Used Second Hand Smoke Exposure: Yes service: No Current occupational status: disabled Sexual orientation: Straight/Heterosexual Gender identity: Female Cognitive needs: No Hearing needs: No Vision needs: No Questionnaire Thrive Questionnaire Date Thrive assessed: 05/09/25 I am a: Patient What is your living situation today?: I have a steady place to live Within the past 12 months, did the food you bought not last and you didn't have the money to get more?: Never true Within the past 12 months, did you worry whether your food would run out before you got money to buy more?: Never true Do you have trouble paying for medicines?: No Do you have trouble getting transportation to medical appointments?: No Do you have trouble paying your heating and electricity bill?: No Do you have trouble taking care of your child, family member or friend?: No Do you have trouble with day-to-day activities such as bathing, preparing meals, shopping, managing finances, etc.?: No Are you currently unemployed and looking for a job?: Yes Are you interested in more education?: No Currently or been in a relationship where the following occur: No concerns reported THRIVE Score: 0 ABBY-7 AMB Questionnaire ABBY-7 Date ABBY - 7 assessed: 10/03/24 Source: Developed by Drs. Frank Kay, Drea Griggs, Diego Corcoran and colleagues, with an educational javier from [employer]. Review of Systems Const All systems reviewed & are unremarkable except as noted in HPI and below Card Denies chest pain at rest, Denies chest pain with activity, Denies edema, Denies irregular heart rhythm, Denies claudication, Denies dyspnea, Denies dyspnea on exertion, Denies orthopnea, Denies paroxysmal nocturnal dyspnea and Denies slow heart rate Resp Denies cough, Denies dyspnea and Denies dyspnea on exertion GI Denies abdominal pain, Denies change in bowel habits, Denies excessive flatus, Denies nausea and Denies vomiting Neuro Denies behavioral changes and Denies lack of coordination Psych Denies behavioral changes Endo Denies cold intolerance Physical exam (Primary Care) Vital Signs: Last Vital Signs Temp 96.8 F 09/11/25 12:54 Pulse 101 H 09/11/25 12:54 BP 140/80 H 09/11/25 12:54 Pulse Ox 98 09/11/25 12:54 Oxygen Delivery Method Room Air 09/11/25 12:54 BMI result Body Mass Index 27.3 Tobacco/Smoking Status: Tobacco use Status Tobacco use date assessed 09/11/25 09/11/25 12:58 Patient Tobacco Use Status Former Tobacco user 09/11/25 12:58 Tobacco use type Cigarette 09/11/25 12:58 e-Cigarette/Vaping Use Never Used 09/11/25 12:58 Thrive Assessment: Date of Thrive Assessment Date Thrive assessed 05/09/25 09/11/25 12:58 Currently or been in a relationship where the following occur: No concerns reported Resp Effort & Inspection: normal respiratory effort Auscultation: clear to auscultation bilaterally Cardio Jugular venous distension: no JVD Rate: regular rate Rhythm: regular rhythm Heart sounds: S1 normal heart sound present and S2 normal heart sound present Extrem General: Yes full ROM Coding Level of Care Code Add On Preventative Visit Only Diagnoses Other cirrhosis of liver K74.69 Hepatic cirrhosis type: other cirrhosis Chronic pancreatitis K86.1 Type 2 diabetes mellitus with hyperglycemia, with long-term current use of insulin E11.65; Z79.4 Diabetes mellitus type: type 2 Diabetes mellitus keno terminal operator insulin use: with keno terminal operator use Diabetes mellitus complication status: with hyperglycemia Hyperlipidemia LDL goal <70 E78.5 Essential hypertension I10 Bipolar affective disorder, remission status unspecified F31.9 Active/Remission status: remission status unspecified Time Spent (min) 21 Assessment & Plan Assessment & Plan (1) Cirrhosis: Comment: BASELINE LABS 01/2018: Total bilirubin 0.6, alk-phos elevated at 134, AST/ALT 37/44, CURRENT LABS 08/03/2303/ [id number] Estimated GFR > 60 Hgb A1c (Clinic) 14 H Total Bilirubin 0.8 AST 27 ALT 29 Alkaline Phosphatase 199 H TSH 3.10 ULTRASOUND OF THE ABDOMEN ORDERED BY PCP 12/10/23 FINDINGS: PANCREAS: Normal. ABDOMINAL AORTA: The proximal, mid, and distal segments are normal in caliber. INFERIOR VENA CAVA: Visualized portions are normal. LIVER: The liver is enlarged. The liver contour is normal. Diffusely increased liver echogenicity. No focal hepatic lesion. There is no intrahepatic biliary duct dilatation seen. GALLBLADDER: Surgically absent. COMMON BILE DUCT: Normal in caliber measuring 0.38 cm in diameter. RIGHT KIDNEY: Normal. No hydronephrosis. No renal calculi or focal parenchymal lesions. The kidney measures 10.6 cm in maximum dimension. LEFT KIDNEY: 1.6 cm simple appearing midpole cyst, stable. No hydronephrosis or renal calculi. The kidney measures 11.3 cm in maximum dimension. SPLEEN: Normal. The spleen measures 11.3 cm in maximum dimension. FREE FLUID: None. US/US abdomen complete IMPRESSION: 1. Diffusely increased liver echogenicity. This is a nonspecific finding but most suggestive of hepatic steatosis. Correlation with liver enzymes recommended. 2. Stable 1.6 cm left renal cyst. CT ABDOMEN AND PELVIS 08/01/23 FINDINGS: LUNG BASES: The visualized lung bases are unremarkable. LIVER, GALLBLADDER, AND BILIARY TREE: The liver is heterogeneous in attenuation and irregular in contour. There is no focal consolidation. There is no intrahepatic biliary duct dilatation. There has been a prior cholecystectomy. PANCREAS: Unremarkable. SPLEEN: Spleen is mildly enlarged measuring up to 14 cm. ADRENAL GLANDS: There bilateral adrenal gland thickening and a 1.4 cm left adrenal nodule.. KIDNEYS AND URETERS: The kidneys are normal in size, shape, and attenuation. There is a 3 mm nonobstructing calculus lower pole left kidney. There is a 1.7 cm cyst upper pole left kidney. There is no hydronephrosis. BLADDER: Unremarkable. GASTROINTESTINAL TRACT: The small and large bowel are unremarkable. The appendix is unremarkable. ABDOMINAL WALL: No significant hernia is appreciated. LYMPH NODES: Normal. VASCULAR: Unremarkable. PELVIC VISCERA: Unremarkable. OSSEOUS STRUCTURES: Unremarkable. CT/CT abdomen pelvis wo IV con IMPRESSION: Heterogeneous irregular liver consistent with hepatocellular disease/cirrhosis. There is mild associated splenomegaly. Obstructing calculus lower pole left kidney. Code(s): K74.60 - Unspecified cirrhosis of liver Category: Medical Qualifiers: Hepatic cirrhosis type: other cirrhosis Qualified Code(s): K74.69 - Other cirrhosis of liver (2) Chronic pancreatitis: Code(s): K86.1 - Other chronic pancreatitis Category: Medical (3) Diabetes mellitus: Code(s): E11.9 - Type 2 diabetes mellitus without complications Category: Medical Qualifiers: Diabetes mellitus type: type 2 Diabetes mellitus long-term insulin use: with keno terminal operator use Diabetes mellitus complication status: with hyperglycemia Qualified Code(s): E11.65 - Type 2 diabetes mellitus with hyperglycemia; Z79.4 - detention (current) use of insulin (4) Hyperlipidemia LDL goal <70: Code(s): E78.5 - Hyperlipidemia, unspecified Category: Medical (5) Essential hypertension: Code(s): I10 - Essential (primary) hypertension Category: Medical (6) Bipolar disorder: Code(s): F31.9 - Bipolar disorder, unspecified Category: Medical Qualifiers: Active/Remission status: remission status unspecified Qualified Code(s): F31.9 - Bipolar disorder, unspecified Plan Continue same medications. A1c goal is equal or less than 7%. Blood pressure goal is equal or less than 130/80. LDL goal is less than 70. Follow-up with endocrinology and gastroenterology. Orders: Orders Vitamin B12 and Folate Today E53.8 - Deficiency of other specified B group vitamins Vitamin D 25-OH Total Today E55.9 - Vitamin D deficiency, unspecified Complete Blood Count Auto Diff Today D64.9 - Anemia, unspecified Lipid Panel Today E78.5 - Hyperlipidemia, unspecified Microalbumin, Random (w Creat) Today R80.9 - Proteinuria, unspecified IRON PROFILE Today D64.9 - Anemia, unspecified Comprehensive [place]. Panel Fast Today I10 - Essential (primary) hypertension Medications: Refilled cholecalciferol (vitamin D3) 25 mcg PO DAILY 90 caps 1RF 90 days Discontinued fenofibrate Discontinued Reason: Patient Completed Course 54 mg PO DAILY 90 days 90 tabs 1RF
[2025-09-11 12:54] VITALS: BP 140/80; PULSE 101; TEMP 36; O2SAT 98; BMI 27.3
[2025-09-11 13:00] VITALS: BP 138/80
== END 2025-09-11 13:24 | disposition home or self-care (01) ==
LOC: HO.HMCH 12:48
PROVIDERS: PCP Internal Medicine; Visit Provider Internal Medicine
DX: K74.69 Other cirrhosis of liver (principal); K86.1 Other chronic pancreatitis; E11.65 Type 2 diabetes mellitus with hyperglycemia; Z79.4 Long term (current) use of insulin; E78.5 Hyperlipidemia, unspecified; I10 Essential (primary) hypertension; F31.9 Bipolar disorder, unspecified

== ENCOUNTER → 2025-09-11 12:47 | Outpatient (BNVA) | payer OTHER, SELFPAY | PROVIDERS: PCP Internal Medicine; Visit Provider Internal Medicine | DX: E11.65 Type 2 diabetes mellitus with hyperglycemia (principal); K74.69 Other cirrhosis of liver; K86.1 Other chronic pancreatitis; E78.5 Hyperlipidemia, unspecified; I10 Essential (primary) hypertension; F31.9 Bipolar disorder, unspecified; Z79.4 Long term (current) use of insulin | CPT/HCPCS: 99212 ==

== ENCOUNTER 2025-09-17 10:56 | Outpatient (REF) | payer OTHER, SELFPAY ==
--- NOTE | ~2025-09-17 | MM_ITS ---
EXAMINATION: MM SCREENING DIGITAL BREAST TOMOSYNTHESIS, BILATERAL CLINICAL INFORMATION: Screening. Asymptomatic. COMPARISON: Mammography: Comparison is made with available priors TECHNIQUE: Digital breast mammography with tomosynthesis is performed in both the craniocaudal and mediolateral oblique views along with computer-aided detection (CAD). FINDINGS: There are scattered areas of fibroglandular density. Left: Focal asymmetry in the upper inner breast anterior middle depth. No suspicious calcifications or other abnormal findings. Right: There are no significant masses, abnormal calcifications, or other abnormalities. MM/MM tomosynthesis screening BI IMPRESSION: Additional imaging is recommended ASSESSMENT: BI-RADS Category 0: Incomplete - Need additional Imaging Evaluation RECOMMENDATION: 1. Additional views of the left breast. 2. Targeted ultrasound if warranted after review of the additional views. 3. Radiology department staff will contact the patient for additional imaging. Additional Imaging required Electronically signed by: Surekha Villareal DO 09/19/2025 10:36 AM [facility]
== END 2025-09-17 10:57 | disposition home or self-care (01) ==
LOC: HO.MAMMO 10:56
PROVIDERS: PCP Internal Medicine; Visit Provider Internal Medicine
DX: Z12.31 Encounter for screening mammogram for malignant neoplasm of breast (principal)
CPT/HCPCS: 77063; 77067

== ENCOUNTER → 2025-09-17 11:15 | Outpatient (BNV) | payer OTHER, SELFPAY | PROVIDERS: PCP Internal Medicine; Visit Provider Internal Medicine | DX: Z12.31 Encounter for screening mammogram for malignant neoplasm of breast (principal) | CPT/HCPCS: 77063; 77067 ==